=== PATIENT | male | born 1970 | race Caucasian/White ===

== ENCOUNTER → 2021-08-21 | Outpatient (REF) | payer SELFPAY | END | disposition home or self-care (01) | LOC: OLS.AHA 04:00 | PROVIDERS: Referring Provider Family Medicine; Visit Provider Family Medicine | DX: D64.9 Anemia, unspecified (principal); F25.0 Schizoaffective disorder, bipolar type; E72.20 Disorder of urea cycle metabolism, unspecified; D69.6 Thrombocytopenia, unspecified; E55.9 Vitamin D deficiency, unspecified | CPT/HCPCS: 82140 ==

== ENCOUNTER 2022-06-04 01:35 | Inpatient (IN) | payer MEDICARE, MEDICAID, SELFPAY ==
[2022-06-04] VITALS (20 sets, daily range): BP systolic 100–137; BP diastolic 54–84; PULSE 48–60; RESP 12–18; TEMP 36.1–36.7; O2SAT 83–100; BMI 30.5
--- NOTE | 2022-06-04 01:43 | RAD_ITS ---
STUDY: X-RAY CHEST REASON FOR EXAM: Male, 52 years old. sob TECHNIQUE: Single AP portable view of the chest. COMPARISON: None. FINDINGS: The lungs are clear and expanded. There is no demonstrated pleural abnormality. Normal size heart. Normal mediastinum and jovany. Normal visualized pulmonary arteries. Normal visualized aortic arch and descending thoracic aorta. Normal visualized thoracic spine. Normal visualized ribs, clavicles, and shoulders. There is no demonstrated abnormality of the visualized soft tissue structures of the upper abdomen. RAD/Chest 1 View (Portable) IMPRESSION: Normal x-ray examination of the chest. Electronically Signed: Jennifer Dowd MD at 2:26 EST ,
--- NOTE | 2022-06-04 01:45 | EX.ED.DYSGE1 ---
HPI History of Present Illness Chief Complaint: Shortness of Breath Informant: patient and EMS Narrative Narrative: Patient sent in from [facility] [place] secondary to shortness of breath and low pulse ox. Patient is a history of COPD. Per staff member at bedside patient has had cough and increased shortness of breath for the past week. He was placed on 2 L of oxygen. Tonight during rounds he was noted to be satting in the 60s. He was given an aerosol treatment placed on a nonrebreather at 10 L and EMS was called. EMS states his sats were in the 90s on the nonrebreather for them. Patient denies having fever. [facility] Medical History Anxiety Asthma COPD (chronic obstructive pulmonary disease) Cyclical vomiting Gastroparesis Hypertension Hypocalcemia Intermittent explosive disorder Thrombocythemia Allergy/AdvReac Type Severity Reaction Status Date / Time acetic acid Allergy PT UNABLE Verified 06/04/22 01:40 TO RESPOND-NEEDS F/U nut - unspecified [nuts] Allergy PT UNABLE Verified 06/04/22 01:40 TO RESPOND-NEEDS F/U Penicillins Allergy PT UNABLE Verified 06/04/22 01:40 TO RESPOND-NEEDS F/U risperidone Allergy PT UNABLE Verified 06/04/22 01:40 TO RESPOND-NEEDS F/U Social History Smoking Status: Unknown if ever smoked ROS ROS ED Constitutional Constitutional ED: Denies chills or fever(s) Eyes Eyes: Denies change in vision or discharge from eye(s) ENT ENT ED: Denies discharge from eye(s), rhinorrhea or sore throat Cardiovascular Cardiovascular: Denies chest pain or palpitations Respiratory/Chest Respiratory/Chest: Reports cough and dyspnea Gastrointestinal Gastrointestinal: Denies abdominal pain, diarrhea, nausea or vomiting Musculoskeletal Musculoskeletal: Denies back pain or extremity pain Integumentary Denies Abrasions or rash Neurologic Neurologic: Denies headache(s) or weakness Psychiatric Psychiatric: Denies anxiety or depression Allergic/Immunologic Allergic/Immunologic ED: Denies lip swelling or urticaria EXAM Physical Exam Const Vital Signs: 06/04/22 01:36 06/04/22 01:38 06/04/22 01:44 Temperature 98.1 F 97.6 F L Temperature Source Temporal Temporal Pulse Rate 57 L 60 Respiratory Rate 14 12 Respiratory Effort Normal Non-Labored Respiratory Depth Normal Respiratory Pattern Normal Blood Pressure 118/66 118/66 Blood Pressure Mean 83 83 Pulse Ox 93 95 Oxygen Delivery Method Room Air Room Air Room Air Positive well nourished and well developed General Appearance ED: well developed HEENT Reports normocephalic, head/scalp atraumatic and dry mucous membranes Mouth ED: Yes dry mucous membranes Mouth: dry mucous membranes Eyes PERRL and EOMs intact bilaterally Neck supple Chest Wall inspection of chest normal and palpation of chest normal Resp normal respiratory effort and clear to auscultation bilaterally Cardio regular rate and regular rhythm GI normal to inspection, nondistended, normoactive bowel sounds Palpation: soft Extremity normal to inspection Neuro oriented x3 Neuro Narrative: No focal neurologic deficits. 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 EKG, chest x-ray, lab work obtained. Lab Data Attestation: I reviewed the patient's lab results. Labs: Laboratory Results - last 24 hr 06/04/22 06/04/22 02:05 02:05 WBC 7.1 RBC 3.98 L Hgb 12.2 L Hct 37.7 L MCV 94.7 H MCH 30.7 MCHC 32.4 RDW Std Deviation 49.5 H RDW Coeff of Eleanor 14.5 Plt Count 154 MPV 9.7 Immature Gran % (Auto) 0.300 Neut % (Auto) 72.8 H Lymph % (Auto) 7.5 L [place] % (Auto) 14.3 H Eos % (Auto) 4.8 Baso % (Auto) 0.3 Absolute Neuts (auto) 5.2 Absolute Lymphs (auto) 0.53 L Nucleated RBC % 0 Macrocytosis RARE Sodium 140 Potassium 2.6 L* Chloride 96 L Carbon Dioxide 40.0 H Anion Gap 4 L BUN 17 Creatinine 1.21 Estim Creat Clear Calc 69.09 Est GFR (MDRD) Af Amer 81 Est GFR (MDRD) Non-Af 67 BUN/Creatinine Ratio 14.0 Glucose 169 H Calcium 8.6 Troponin I High Sens 9 Radiography Chest X-Ray - ED: 1 View, Read by ED Physician, Chronic Changes and No Infiltrates Diagnostic Testing: Clinical Impression(s) from Imaging Studies Chest X-Ray 06/04/22 01:43 IMPRESSION: Normal x-ray examination of the chest. Electronically Signed: Jennifer Dowd MD at 2:26 EST , EKG Initial EKG: Attestation: I personally reviewed and interpreted this EKG as follows: Interpretation: Sinus Bradycardia (Sinus bradycardia at [address] depression noted. No prior studies available for comparison.) Treatment and Re-Evaluation Narrative: Patient was initially on room air and satting in the mid 90s. He has had a couple episodes of desaturation down into the low to mid 80s. He is currently on 2 L nasal cannula. I am concerned that he is having more problem with mucous plugging as opposed to a true COPD exacerbation. He is given a dose of p.o. Robitussin to help with mucus. CBC and chemistry studies are significant for hypokalemia with a potassium of 2.6. Troponin is normal at 9. Patient has just recently been placed on a mechanical soft diet secondary to swallowing difficulties. In light of this I will give him IV potassium replacement. I will speak with hospitalist regarding admission. Discharge Plan Triage Chief Complaint: Shortness of Breath ED Provider: Sonia Soares Dx/Rx/DC Orders Clinical Impression: Hypokalemia, Hypoxia, Mucus plugging of bronchi Primary Care Provider: Lex Jiang Referrals: Lex Jiang MD [Primary Care Provider] - Disposition Disposition: Acute Care [facility]
[2022-06-04 02:12] LABS: Absolute Lymphocyte Count 0.53 X10^3/uL (0.83-4.51); Absolute Neutrophil Count 5.2 X10^3/uL (2.0-7.7); Basophil# 0.02 X10^3/uL; Basophil% 0.3 % (0-1); Eosinophil# 0.34 X10^3/uL; Eosinophils% 4.8 % (0-5); Hematocrit 37.7 % (40-54); Hemoglobin 12.2 g/dL (13.0-16.5); Lymphocyte # 0.53 X10^3/ul (0.83-4.51); Lymphocyte % 7.5 % (19-41); Mean Corp Hgb Conc 32.4 g/dL (32-36); Mean Corpuscular Hgb 30.7 pg (27.0-32.0); Mean Corpuscular Volume 94.7 fL (80-94); Mean Platelet Vol. 9.7 fl (6.2-12.0); Monocyte# 1.01 X10^3/uL; Monocyte% 14.3 % (0-10); NRBC Flagged by Analyzer 0 % (0-5); Neutrophil # 5.15 X10^3/uL (2.7-7.7); Neutrophil % 72.8 % (47-70); POSITIVE DIFFERENTIAL YES; Platelet Count 154 K/mm3 (150-450); RBC Distribution Width CV 14.5 % (11.6-14.6); RBC Distribution Width SD 49.5 fl (35.1-43.9); Red Blood Count 3.98 M/mm3 (4.6-6.2); White Blood Count 7.1 K/mm3 (4.4-11.0)
[2022-06-04 02:27] LABS: Differential Indicated SCAN CRITERIA MET
[2022-06-04 02:31] LABS: Macrocytosis RARE
[2022-06-04 02:36] LABS: Anion Gap 4 (5-15); BUN 17 mg/dL (7-18); Calcium,Total 8.6 mg/dL (8.5-10.1); Chloride 96 mmol/L (98-107); Creatinine, Serum 1.21 mg/dL (0.70-1.30); EST Glomerular Filtration Rate 67 mL/min (>60); Est Glom Filt Rate - Afr Amer 81 mL/min (>60); Estimated Creatinine Clearance 69.09 ml/min; Glucose 169 mg/dL (74-106); Potassium 2.6 mmol/L (3.5-5.1); Sodium Level 140 mmol/L (136-145); Troponin-I HS 9 pg/mL (3.0-78.0)
[2022-06-04] MEDS: Potassium Chloride 10mEq/100mL 10 MEQ/100 ML IV.SOLN. 100 MEQ IV BOLUS ×4 (02:54→06:26)
[2022-06-04] MEDS: guaiFENesin 10 ML UDC (200MG/10ML) PO (02:55)
--- NOTE | 2022-06-04 03:05 | PCM.HP.STD ---
HPI - General General Date of Admission: 06/04/22 Date of Service: 06/04/22 Chief Complaint: Dyspnea, cough, hypoxia. HPI Narrative The patient is a 52 y/o M w/ PMHx: Adrenocortical insufficiency, Chronic dysphagia, Obesity, Asthma/COPD, Anxiety and Depression/Intermittent explosive disorder/Schizoaffective disorder, HTN, Chronic anemia/Fe deficiency anemia, Hx cyclic vomiting and gastroparesis, Dysphagia who presents from [facility] to the [facility] ED on 06/04/22 with history of ~ 1 week of progressively worsening dyspnea, cough however worsening on evening prior to day of presentation requiring 2 L nasal cannula to be initiated and despite this significant desaturation with oxygen and into the 60s with aerosols initiated and patient placed on a nonrebreather with EMS called and upon their initial evaluation noted saturations in the 90% on the nonrebreather with no specific fever or chills recently prompting ED evaluation. Work-up in the ED included T98.1, heart rate 57, BP 118/66, respiratory rate 14, 93% on room air initially however desaturated to 83%-->improved on added 2L NC, CBC with WBC 7.1, hemoglobin 12.2, platelet 154 with lymphopenia, BMP with potassium 2.6, chloride 96, carbon oxide 40, glucose 169, troponin 9, chest x-ray with no acute cardiopulmonary findings, rapid SARS COVID and influenza antigens negative, EKG with sinus bradycardia with nonspecific ST depressions noted with no acute evidence of ischemia with no comparison. Per ED physician while in the ED the patient did have a couple episodes of desaturation down into the low 80s with concern for possibly mucous plugging with administration of oral Robitussin to assist with mucus as well as IV potassium supplementation. [facility] Medical History (Updated 06/04/22 @ 03:20 by Domi Grier) Adrenocortical insufficiency Anemia Anxiety Asthma COPD (chronic obstructive pulmonary disease) Cyclical vomiting Gastroparesis Hypertension Hypocalcemia Intermittent explosive disorder Legally blind Schizo affective schizophrenia Thrombocythemia Home Medications albuterol sulfate 0.63 mg/3 mL solution for nebulization 0.63 mg inhalation Q4H PRN PRN SOB 06/04/22 [History Last Taken Unknown] amlodipine 10 mg tablet (Norvasc) 10 mg PO DAILY 06/04/22 [History Last Taken Unknown] aspirin 81 mg capsule 81 mg PO DAILY 06/04/22 [History Last Taken Unknown] benztropine 1 mg tablet 1 mg PO BID 06/04/22 [History Last Taken Unknown] calcium 500 mg tablet 500 mg PO BID 06/04/22 [History Last Taken Unknown] carvedilol 12.5 mg tablet 12.5 mg PO BID 06/04/22 [History Last Taken Unknown] cyanocobalamin (vitamin B-12) 1,000 mcg tablet 1,000 mcg PO QWEEK 06/04/22 [History Last Taken Unknown] divalproex 500 mg tablet,extended release 24 hr (Depakote ER) 500 mg PO BID 06/04/22 [History Last Taken Unknown] ergocalciferol (vitamin D2) 50,000 unit tablet 50,000 unit PO QWEEK 06/04/22 [History Last Taken Unknown] escitalopram oxalate 10 mg tablet (Lexapro) 10 mg PO BID 06/04/22 [History Last Taken Unknown] famotidine 20 mg tablet (Pepcid) 20 mg PO DAILY 06/04/22 [History Last Taken Unknown] ferrous sulfate 325 mg (65 mg iron) tablet (FeroSul) 325 mg PO BID 06/04/22 [History Last Taken Unknown] fludrocortisone 0.1 mg tablet 0.1 mg PO DAILY 06/04/22 [History Last Taken Unknown] fluticasone propionate 50 mcg/actuation nasal spray,suspension 1 spray intranasal DAILY 06/04/22 [History Last Taken Unknown] folic acid 1 mg tablet 1 mg PO DAILY 06/04/22 [History Last Taken Unknown] hydrochlorothiazide 25 mg tablet 25 mg PO DAILY 06/04/22 [History Last Taken Unknown] iloperidone 12 mg tablet (Fanapt) 12 mg PO DAILY 06/04/22 [History Last Taken Unknown] iloperidone 6 mg tablet (Fanapt) 6 mg PO DAILY 06/04/22 [History Last Taken Unknown] lorazepam 2 mg tablet 2 mg PO Q6H PRN PRN Anxiety 06/04/22 [History Last Taken Unknown] lorazepam 2 mg tablet (Ativan) 2 mg PO TID 06/04/22 [History Last Taken Unknown] lorazepam 2 mg/mL injection solution (Ativan) 2 mg IV Q6H PRN PRN Anxiety 06/04/22 [History Last Taken Unknown] propranolol 120 mg capsule,24 hr,extended release (Inderal LA) 120 mg PO DAILY 06/04/22 [History Last Taken Unknown] psyllium husk 3.4 gram/5.4 gram oral powder (Metamucil) 1 tbsp PO DAILY 06/04/22 [History Last Taken Unknown] quetiapine 300 mg tablet,extended release 24 hr (Seroquel XR) 600 mg PO QHS 06/04/22 [History Last Taken Unknown] trazodone 100 mg tablet 100 mg PO DAILY 06/04/22 [History Last Taken Unknown] Allergy/AdvReac Type Severity Reaction Status Date / Time acetic acid Allergy PT UNABLE Verified 06/04/22 01:40 TO RESPOND-NEEDS F/U nut - unspecified [nuts] Allergy PT UNABLE Verified 06/04/22 01:40 TO RESPOND-NEEDS F/U Penicillins Allergy PT UNABLE Verified 06/04/22 01:40 TO RESPOND-NEEDS F/U risperidone Allergy PT UNABLE Verified 06/04/22 01:40 TO RESPOND-NEEDS F/U unable to obtain unable to obtain Social History (Updated 06/04/22 @ 03:[address] Corrina Huerta MD) housing: other details: Nursing facility with psychiatric focus. Smoking Status: Unknown if ever smoked alcohol intake: never substance use type: does not use ROS ROS Narrative Admission Review of Systems: CONSTITUTIONAL: No weight loss, fever, chills, + weakness or fatigue. HEENT: + Congestion, rhinorrhea, legally blind status. Eyes: No blurred vision, double vision or yellow sclerae. Ears, Nose, Throat: No hearing loss, sneezing. SKIN: No rash or itching, lesions, wounds. CARDIOVASCULAR: No chest pain, chest pressure or chest discomfort, palpitations, edema, orthopnea, syncopal events. RESPIRATORY: + shortness of breath, cough without marked sputum, No wheezing, hemoptysis. GASTROINTESTINAL: + anorexia, No nausea, vomiting or diarrhea, abdominal pain, melena, BRBPR. GENITOURINARY: No dysuria, frequency, urgency or retention. NEUROLOGICAL: No headache, dizziness, syncope, paralysis, ataxia, numbness or tingling in the extremities, focal weakness, change in bowel or bladder control, seizure. MUSCULOSKELETAL: + muscle, back pain, joint pain or stiffness. HEMATOLOGIC: + anemia, bleeding or bruising. LYMPHATICS: No enlarged nodes. No history of splenectomy. PSYCHIATRIC: + history of depression or anxiety. ENDOCRINOLOGIC: No reports of sweating, cold or heat intolerance. No polyuria or polydipsia. ALLERGIES: + history of asthma, rhinitis. Review of Systems ROS Unobtainable: other Vital Signs Vital Signs Vital Signs: 06/04/22 01:36 06/04/22 01:38 06/04/22 01:44 Temperature 98.1 F 97.6 F L Temperature Source Temporal Temporal Pulse Rate 57 L 60 Respiratory Rate 14 12 Respiratory Effort Normal Non-Labored Respiratory Depth Normal Respiratory Pattern Normal Blood Pressure 118/66 118/66 Blood Pressure Mean 83 83 Pulse Ox 93 95 Oxygen Delivery Method Room Air Room Air Room Air 06/04/22 02:36 Temperature Temperature Source Pulse Rate 50 L Respiratory Rate 15 Respiratory Effort Respiratory Depth Respiratory Pattern Blood Pressure Blood Pressure Mean Pulse Ox 83 Oxygen Delivery Method Room Air Weight Weight: 201 lb 1.6 oz Body Mass Index (BMI) 30.5 Physical Exam Narrative Physical Examination: General: Awakens to stimuli and alert initially however very fatigued and falls back asleep quickly, patient able to answer some questions but per discussion with facility staff present frequently will give answers that are falls secondary to underlying schizophrenic history, seated upright in ED bed, fatigued and ill-appearing. Skin: Normal color, normal turgor, no icterus, no cyanosis. HEENT: AT/NC, EOMI, legally blind status, PERRLA, dry MM, no carotid bruits or JVD noted. Lungs: Diminished, appropriate effort, currently maintaining appropriate saturation but had been having significant episodes of hypoxia in the ED with suspected mucous plugging, no rales, ronchi or wheezing. Heart: Bradycardic with regular rhythm; no gallop, rub audible. Abdomen: Soft, obese, NTTP, ND, distant normal BS, no HSM. Extremities: No cyanosis, clubbing, or edema. Neurological: Awakens to stimuli and alert initially however very fatigued and falls back asleep quickly, patient able to answer some questions but per discussion with facility staff present frequently will give answers that are falls secondary to underlying schizophrenic history, seated upright in ED bed, fatigued and ill-appearing, cognitive function per discussion with facility staff currently based intact; pupils equally reactive to light and accommodation, cranial nerves grossly normal, moving all 4 extremities, no focal deficits, strength moderately globally decreased secondary to acute presentation. Psychiatric: Affect appears significantly fatigued, no acute evidence of depressive or anxiety feelings but does have underlying significant psychiatric history. Results Lab / Micro Data Result Diagrams: 06/04/22 02:05 06/04/22 02:05 Labs: Laboratory Results - last 24 hr 06/04/22 02:05: WBC 7.1, RBC 3.98 L, Hgb 12.2 L, Hct 37.7 L, MCV 94.7 H, MCH 30.7, MCHC 32.4, RDW Std Deviation 49.5 H, RDW Coeff of Eleanor 14.5, Plt Count 154, MPV 9.7, Immature Gran % (Auto) 0.300, Neut % (Auto) 72.8 H, Lymph % (Auto) 7.5 L, [place] % (Auto) 14.3 H, Eos % (Auto) 4.8, Baso % (Auto) 0.3, Absolute Neuts (auto) 5.2, Absolute Lymphs (auto) 0.53 L, Nucleated RBC % 0, Macrocytosis RARE 06/04/22 02:05: Sodium 140, Potassium 2.6 L*, Chloride 96 L, Carbon Dioxide 40.0 H, Anion Gap 4 L, BUN 17, Creatinine 1.21, Estim Creat Clear Calc 69.09, Est GFR (MDRD) Af Amer 81, Est GFR (MDRD) Non-Af 67, BUN/Creatinine Ratio 14.0, Glucose 169 H, Calcium 8.6, Troponin I High Sens 9 Micro: Microbiology 06/04/22 02:03 Nasal Secretion SARS-CoV-2 & FLU Antigen (Rapid) - Final Radiology Impression Chest X-Ray 06/04/22 01:43 IMPRESSION: Normal x-ray examination of the chest. Electronically Signed: Jennifer Dowd MD at 2:26 EST , Assessment & Plan Assessment/Plan (1) Mucus plugging of bronchi: (2) Hypoxia: PLAN: Plan The patient is a 52 y/o M w/ PMHx: Adrenocortical insufficiency, Chronic dysphagia, Obesity, Asthma/COPD, Anxiety and Depression/Intermittent explosive disorder/Schizoaffective disorder, HTN, Chronic anemia/Fe deficiency anemia, Hx cyclic vomiting and gastroparesis, Dysphagia who presents from [facility] to the [facility] ED on 06/04/22 with history of ~ 1 week of progressively worsening dyspnea, cough however worsening on evening prior to day of presentation requiring 2 L nasal cannula to be initiated and despite this significant desaturation with oxygen and into the 60s with aerosols initiated and patient placed on a nonrebreather with EMS called and upon their initial evaluation noted saturations in the 90% on the nonrebreather with no specific fever or chills recently prompting ED evaluation. #1. Acute Viral Syndrome with Suspected Mucous Plugging with episodes of Acute Hypoxia: Will admit to [facility], maintain on oxygen with wean as tolerated to room air, continue ATC duonebs, PRN albuterol, encourage frequent positional changes, HOB, IS parameters, obtain sputum cx if able, will obtain full respiratory viral panel, maintain on mucinex. If onset wheezing or poor air movement low threshold to add IV solumedrol. #2. Hyperglycemia, possibly stress response: Admission glucose 169, no diabetic history, will obtain hemoglobin A1c. #3. Hypokalemia: Admission K+ 2.6, magnesium level requested, supplementation given, repeat level in AM. #4. Chronic Fe Deficiency anemia, Macrocytic anemia: Admission CBC with hemoglobin 12.2, MCV 94.7, will continue Fe, Folic acid daily supplementations, noted to also be on weekly vitamin B12 supplementation, continue to trend CBC. #5. History of cyclic vomiting with gastroparesis: From current list not on any chronic regimen however if necessary may administer Reglan. #6. Chronic dysphagia: Patient per facility is on a mechanical soft diet with recent swallowing difficulties noted, will request speech therapy assessment and maintain on this diet until further assessed. #7. Hypertension: Continue home regimen including amlodipine, Coreg, given severity of electrolyte disturbances will hold hydrochlorothiazide temporarily, PRN hydralazine. From medication list from facility patient also listed on propranolol which will be held given already on coreg and noted to be bradycardic. #8. Adrenocortical insufficiency: We will continue patient home fludrocortisone regimen. #9. Anxiety and depression/intermittent explosive disorder/? Bipolar disorder: We will continue patient home regimen benztropine, Depakote, escitalopram, Seroquel, trazodone, Ativan as well as Fanapt. #10. Obesity: Weight loss and lifestyle changes encouraged. #11. DVT prophylaxis: SCDs, Lovenox. #12. CODE STATUS: Full code per facility paperwork. Charges/Coding Visit Charges Inpatient E&M: 65560 Init Hosp L2
--- NOTE | 2022-06-04 04:30 | NURSING ---
pt lethargic and hard to arouse. worker from [facility] Said Pt hard sleeper and really hard to wake up at nights.
[2022-06-04] MEDS: 0.9% Normal Saline 1,000 ML 100 ML IV ×2 (04:34→14:34)
--- NOTE | 2022-06-04 04:51 | NURSING ---
Pt having periods of apnea while sleeping. snoring heard then pulse ox jumps back up
[2022-06-04 04:54] LABS: Ferritin 36 ng/mL (26-388); Iron 31 ug/dL (65-175); Iron Binding Capacity,Total 265 ug/dL (250-450); Magnesium 1.8 mg/dL (1.6-2.6); PERCENT IRON SATURATION 11.7 % (15.0-55.0)
[2022-06-04 05:01] LABS: Procalcitonin 0.04 ng/mL (0.00-0.09)
--- NOTE | 2022-06-04 05:06 | NURSING ---
heike from [facility] clarified meds and code status
[2022-06-04 07:23] LABS: Absolute Lymphocyte Count 0.81 X10^3/uL (0.83-4.51); Absolute Neutrophil Count 3.9 X10^3/uL (2.0-7.7); Basophil# 0.03 X10^3/uL; Basophil% 0.5 % (0-1); Eosinophil# 0.36 X10^3/uL; Eosinophils% 6.1 % (0-5); Hematocrit 36.3 % (40-54); Hemoglobin 11.8 g/dL (13.0-16.5); Lymphocyte # 0.81 X10^3/ul (0.83-4.51); Lymphocyte % 13.8 % (19-41); Mean Corp Hgb Conc 32.5 g/dL (32-36); Mean Corpuscular Hgb 30.8 pg (27.0-32.0); Mean Corpuscular Volume 94.8 fL (80-94); Mean Platelet Vol. 9.1 fl (6.2-12.0); Monocyte# 0.82 X10^3/uL; Monocyte% 13.9 % (0-10); NRBC Flagged by Analyzer 0 % (0-5); Neutrophil # 3.85 X10^3/uL (2.7-7.7); Neutrophil % 65.5 % (47-70); Platelet Count 139 K/mm3 (150-450); RBC Distribution Width CV 14.6 % (11.6-14.6); RBC Distribution Width SD 49.9 fl (35.1-43.9); Red Blood Count 3.83 M/mm3 (4.6-6.2); White Blood Count 5.9 K/mm3 (4.4-11.0)
[2022-06-04] MEDS: Ipratropium/Albuterol Sulfate 3 ML AMPUL.NEB INHALATION ×3 (07:25→15:49)
[2022-06-04] MEDS: Potassium Chloride Oral Soln 20 MEQ/15 ML UDC 40 MEQ PO (08:05)
[2022-06-04 08:23] LABS: ALB/GLOB Ratio 0.8 RATIO (0.9-2.4); AST(SGOT) 14 U/L (15-37); Alanine Aminotransfer ALT/SGPT 19 U/L (16-61); Albumin, Serum 2.7 g/dL (3.2-5.0); Alkaline Phosphatase 55 U/L (45-117); Anion Gap 3 (5-15); BUN 16 mg/dL (7-18); BUN/Creat Ratio 18.9 RATIO (10-20); Calcium,Total 8.5 mg/dL (8.5-10.1); Chloride 98 mmol/L (98-107); Creatinine, Serum 0.85 mg/dL (0.70-1.30); EST Glomerular Filtration Rate 101 mL/min (>60); Est Glom Filt Rate - Afr Amer 122 mL/min (>60); Estimated Creatinine Clearance 98.35 ml/min; Globulin 3.2 g/dL (2.2-4.2); Glucose 85 mg/dL (74-106); Protein, Total 5.9 g/dL (6.4-8.2); Sodium Level 140 mmol/L (136-145)
[2022-06-04 08:29] LABS: Vitamin B12 1008 pg/mL (211-911)
[2022-06-04 08:52] LABS: Hemoglobin A1c 5.2 % (3.8-5.6)
[2022-06-04] MEDS: LORazepam 1 MG Tablet 2 MG PO ×2 (09:31→22:49)
[2022-06-04] MEDS: Enoxaparin 40 MG/0.4 ML Syringe SC (09:32)
[2022-06-04] MEDS: Psyllium 1 PACKET PO (09:33)
[2022-06-04] MEDS: amLODIPine 10 MG Tablet PO (09:33)
[2022-06-04] MEDS: Escitalopram Oxalate 10 MG Tablet PO ×2 (09:33→22:50)
[2022-06-04] MEDS: Fluticasone 0.05% 1 SPRAY NASAL.SRY NASAL (09:34)
[2022-06-04] MEDS: Cyanocobalamin 500 MCG Tablet 1000 MCG PO (09:34)
[2022-06-04] MEDS: Divalproex (ER) 500 MG Tablet PO ×2 (09:34→22:49)
[2022-06-04] MEDS: QUEtiapine 100 MG Tablet 300 MG PO ×2 (09:35→22:49)
[2022-06-04] MEDS: Famotidine 20 MG Tablet PO (09:35)
[2022-06-04] MEDS: Folic Acid 1 MG Tablet PO (09:36)
[2022-06-04] MEDS: Benztropine 2 MG Tablet 1 MG PO ×2 (09:37→22:49)
[2022-06-04] MEDS: Calcium Carbonate 500 MG Tablet PO (09:37)
[2022-06-04] MEDS: Hydrocortisone Sod Succinate 100 MG/2 ML Vial 30 MG IV ×2 (09:38→22:49)
[2022-06-04] MEDS: guaiFENesin 1,200 MG Tablet 1200 MG PO ×2 (09:38→22:49)
[2022-06-04] MEDS: Ferrous Sulfate 325 MG Tablet PO (12:42)
--- NOTE | 2022-06-04 14:59 | PN.HOSP_ITS ---
Hospitalist Note Patient is a 52-year-old male who presented to emergency department currently living at [facility] who had progressively worsening dyspnea, cough over the last week. Evidently his oxygen dipped in the 60s on 2 L and aerosols were initiated and he was placed on a nonrebreather and EMS was called. EMS sats initially were 90% on the nonrebreather. His work-up in the emergency department was overall unremarkable. He was satting 93% on room air but then desaturated to 83% and improved with 2 L nasal cannula. His labs are overall unremarkable but he does have lymphopenia. He had significant hypokalemia with potassium of 2.6 and his chest x-ray was unremarkable. COVID and influenza rapid were negative. And his chest x-ray was unremarkable. Since admission a respiratory viral panel was performed and was negative. Since admission the patient has remained on 2 L nasal cannula with oxygen saturations 93 to 96%. He does have a history of relative adrenal insufficiency so I will discontinue his fludrocortisone and place him on IV Solu-Cortef for now and monitor his blood pressures as they were somewhat soft. There is some question of mucous plugging so we will continue Mucinex and may possibly able to be discharged back to his facility tomorrow depending on his clinical status and oxygen requirements. Will require ambulatory pulse ox prior to discharge.
--- NOTE | 2022-06-04 15:11 | CHAPLAIN ---
Type of Pastoral Visit _x__ Initial Visit ___ Follow-up Visit ___ On-call Visit ___ General Patient Visit ___ Spiritual Assessment ___ Family Conference ___ Bereavement ___ Rapid Response ___ Code Blue ___ Other (describe below) Pastoral Care Referral From _x__ Patient ___ Family ___ Nurse ___ Physician ___ Patent Searcher ___ Per Diem Physical Therapist ___ Other (describe below) Sacrament/Intervention ___ Active listening ___ Anointing ___ Jainism ___ Bereavement ___ Communion ___ Jennifer exploration ___ ___ Life review ___ Prayer ___ Reconciliation ___ Sacrament of Sick ___ Supportive presence ___ Wedding ___ Other (describe below) Pastoral Comments patient was sleeping in a 'boarding room in ED'; RN tried to awaken the patient but he did not; introduced sef and care to pat but again he did not respond; said a silent prayer and left a calling card
[2022-06-04] MEDS: traZODone 100 MG Tablet PO (22:49)
[2022-06-05] VITALS (12 sets, daily range): BP systolic 119–149; BP diastolic 62–81; PULSE 51–84; RESP 15–18; TEMP 36.6–37.4; O2SAT 91–96
[2022-06-05 04:51] LABS: Absolute Lymphocyte Count 0.43 X10^3/uL (0.83-4.51); Absolute Neutrophil Count 4.2 X10^3/uL (2.0-7.7); Basophil# 0.02 X10^3/uL; Basophil% 0.4 % (0-1); Eosinophil# 0.04 X10^3/uL; Eosinophils% 0.8 % (0-5); Hematocrit 36.2 % (40-54); Hemoglobin 12.2 g/dL (13.0-16.5); Lymphocyte # 0.43 X10^3/ul (0.83-4.51); Lymphocyte % 8.4 % (19-41); Mean Corp Hgb Conc 33.7 g/dL (32-36); Mean Corpuscular Hgb 31.6 pg (27.0-32.0); Mean Corpuscular Volume 93.8 fL (80-94); Mean Platelet Vol. 9.4 fl (6.2-12.0); Monocyte# 0.33 X10^3/uL; Monocyte% 6.5 % (0-10); NRBC Flagged by Analyzer 0 % (0-5); Neutrophil # 4.24 X10^3/uL (2.7-7.7); Neutrophil % 83.1 % (47-70); POSITIVE DIFFERENTIAL YES; Platelet Count 152 K/mm3 (150-450); RBC Distribution Width CV 14.4 % (11.6-14.6); RBC Distribution Width SD 48.4 fl (35.1-43.9); Red Blood Count 3.86 M/mm3 (4.6-6.2); White Blood Count 5.1 K/mm3 (4.4-11.0)
[2022-06-05 05:05] LABS: Differential Indicated SCAN CRITERIA MET
[2022-06-05] MEDS: LORazepam 1 MG Tablet 2 MG PO ×3 (05:06→21:56)
[2022-06-05 05:22] LABS: Anion Gap 4 (5-15); BUN 10 mg/dL (7-18); BUN/Creat Ratio 14.2 RATIO (10-20); Calcium,Total 8.6 mg/dL (8.5-10.1); Chloride 100 mmol/L (98-107); Creatinine, Serum 0.71 mg/dL (0.70-1.30); EST Glomerular Filtration Rate 125 mL/min (>60); Est Glom Filt Rate - Afr Amer 151 mL/min (>60); Estimated Creatinine Clearance 117.75 ml/min; Glucose 134 mg/dL (74-106); Potassium 3.3 mmol/L (3.5-5.1); Sodium Level 140 mmol/L (136-145); Thyroid Stim Hormone (TSH) 0.35 uIU/mL (0.358-3.74)
[2022-06-05] MEDS: Ipratropium/Albuterol Sulfate 3 ML AMPUL.NEB INHALATION ×3 (07:11→15:04)
[2022-06-05] MEDS: Carvedilol 12.5 MG Tablet PO ×2 (10:20→17:09)
[2022-06-05] MEDS: Folic Acid 1 MG Tablet PO (10:20)
[2022-06-05] MEDS: Benztropine 2 MG Tablet 1 MG PO ×2 (10:21→21:56)
[2022-06-05] MEDS: Fluticasone 0.05% 1 SPRAY NASAL.SRY NASAL (10:22)
[2022-06-05] MEDS: Divalproex (ER) 500 MG Tablet PO ×2 (10:22→21:56)
[2022-06-05] MEDS: Escitalopram Oxalate 10 MG Tablet PO ×2 (10:23→21:57)
[2022-06-05] MEDS: Enoxaparin 40 MG/0.4 ML Syringe SC (10:23)
[2022-06-05] MEDS: guaiFENesin 1,200 MG Tablet 1200 MG PO ×2 (10:23→21:56)
[2022-06-05] MEDS: Famotidine 20 MG Tablet PO (10:24)
[2022-06-05] MEDS: amLODIPine 10 MG Tablet PO (10:24)
[2022-06-05] MEDS: QUEtiapine 100 MG Tablet 300 MG PO ×2 (10:24→21:56)
[2022-06-05] MEDS: Hydrocortisone Sod Succinate 100 MG/2 ML Vial 30 MG IV ×2 (10:25→21:55)
[2022-06-05] MEDS: Psyllium 1 PACKET PO (10:26)
[2022-06-05] MEDS: Potassium Chloride Oral Tablet 20 MEQ 40 MEQ PO (10:30)
[2022-06-05] MEDS: Calcium Carbonate 500 MG Tablet PO ×2 (10:35→17:08)
[2022-06-05] MEDS: Ferrous Sulfate 325 MG Tablet PO ×2 (12:10→17:09)
--- NOTE | 2022-06-05 13:22 | CHAPLAIN ---
Type of Pastoral Visit ___ Initial Visit _x__ Follow-up Visit ___ On-call Visit ___ General Patient Visit ___ Spiritual Assessment ___ Family Conference ___ Bereavement ___ Rapid Response ___ Code Blue ___ Other (describe below) Pastoral Care Referral From _x__ Patient ___ Family ___ Nurse ___ Physician ___ Maintenance Instructor ___ Heel Edge Inker Machine ___ Other (describe below) Sacrament/Intervention _x__ Active listening ___ Anointing ___ Orthodoxy ___ Bereavement ___ Communion ___ Jennifer exploration ___ _x__ Life review ___ Prayer ___ Reconciliation ___ Sacrament of Sick _x__ Supportive presence ___ Wedding ___ Other (describe below) Pastoral Comments patient was finishing his lunch; pt offered presence and support; pt began to talk about various topics including where he has been residing, things in the news, and random things; at one point pt asked if this auto body painter would hear confessions; offered to hear his concerns and to pray for pt but he declined the same; pt asked for something to drink and this auto body painter notified the BUOY TENDER of same
--- NOTE | 2022-06-05 13:34 | CASEMGMT ---
Social Work SW in to speak to pt and begin discharge planning. Pt appears to be unable to make decisions for self. Pt informed SW that Carlin is my cleaning lady and she drinks tea with me. Pt also reported names of pt's Legal Guardian, POA and CPST Worker. Pt stated My Legal Guardian is Pierre Gonsales and he is here right now. He is invisible and does not want to talk to you. SW called [facility] following discussion with pt. SW spoke to pt's Shefali PADILLA, and Shefali from [facility] shared that pt's sister, Courtney Oates, is Legal Guardian. SW called Courtnye to complete discharge plan. Courtney confirmed pt should return to [facility]. Dr. Solares notified of discharge plan. Speech reports need to complete swallow study for pt tomorrow morning. Plan: [facility], when medically ready YOLI Mcqueen
[2022-06-05] MEDS: Acetaminophen 325 MG Tablet 650 MG PO (15:34)
--- NOTE | 2022-06-05 17:54 | PN.HOSP_ITS ---
Subjective Subjective No issues overnight. No significant shortness of breath. A modified barium swallow planned for tomorrow. Patient is on room air to 1 L. No further worsening of hypoxia events. Objective Data Objective Data Vital Signs: Vital Signs Temp Pulse Resp BP Pulse Ox O2 Del Method O2 Flow Rate 99.3 F H 67 18 119/64 92 Nasal Cannula 1 06/05/22 15:36 06/05/22 15:36 06/05/22 15:36 06/05/22 15:36 06/05/22 15:36 06/05/22 15:40 06/05/22 15:40 Oxygen Flow Rate (L/min) 1 Oxygen Delivery Method Nasal Cannula Weight: 91.2 kg Body Mass Index (BMI) 30.5 Intake & Output: Intake and Output for Last 24 Hours 06/03/22 06/04/22 06/05/22 23:59 23:59 23:59 Intake Total 3349.33 / 4349.33 1400 / 1400 Output Total 700 / 700 Balance 3349.33 / 4349.33 700 / 700 Lab / Micro Data Result Diagrams: 06/05/22 04:24 06/05/22 04:24 Labs: Laboratory Results - last 24 hr 06/05/22 04:24: WBC 5.1, RBC 3.86 L, Hgb 12.2 L, Hct 36.2 L, MCV 93.8, MCH 31.6, MCHC 33.7, RDW Std Deviation 48.4 H, RDW Coeff of Eleanor 14.4, Plt Count 152, MPV 9.4, Immature Gran % (Auto) 0.800, Neut % (Auto) 83.1 H, Lymph % (Auto) 8.4 L, [place] % (Auto) 6.5, Eos % (Auto) 0.8, Baso % (Auto) 0.4, Absolute Neuts (auto) 4.2, Absolute Lymphs (auto) 0.43 L, Nucleated RBC % 0 06/05/22 04:24: Sodium 140, Potassium 3.3 L, Chloride 100, Carbon Dioxide 36.0 H , Anion Gap 4 L, BUN 10, Creatinine 0.71, Estim Creat Clear Calc 117.75, Est GFR (MDRD) Af Amer 151, Est GFR (MDRD) Non-Af 125, BUN/Creatinine Ratio 14.2, Glucose 134 H, Calcium 8.6, TSH 0.35 L Micro: Microbiology 06/04/22 03:31 Mucosa - Nasopharyngeal Respiratory Panel (PCR) - Final 06/04/22 02:03 Nasal Secretion SARS-CoV-2 & FLU Antigen (Rapid) - Final Physical Exam Const Constitutional Narrative: Alert, oriented to self and place, appears comfortable, sitting upright in bed and nursing at bedside HEENT head/scalp atraumatic and moist oral mucous membranes Head and Scalp: normocephalic Resp normal respiratory effort, no retractions, no use of accessory muscles and clear to auscultation bilaterally Auscultation: Negative for crackles, rhonchi or wheezes Cardio regular rate, regular rhythm, S1 normal heart sound, S2 normal heart sound, no rub, no gallops and no clicks Cardio Narrative: 2 out of 6 systolic murmur louder at right upper sternal border GI normal to inspection, nondistended, normoactive bowel sounds, soft to palpation and non-tender Extremity no clubbing, cyanosis or edema Neuro Neuro Narrative: Patient is legally blind therefore vision is impaired, moves all extremities symmetrically Speech: speech normal Psych Psych Narrative: Patient with tangential thought process, affect is strange Assessment & Plan Assessment/Plan (1) Hypoxia: (2) Mucus plugging of bronchi: (3) Hypokalemia: PLAN: Plan Acute hypoxia -Etiology is unclear -Possible aspiration versus mucous plugging -Patient has been weaned to 1 L -We will continue to wean as able -Work-up for infectious etiology has been negative thus far -Continue Mucinex -No current need for any IV steroids Hypokalemia -Proving with potassium up to 3.3 -Redose p.o. potassium again today -Recheck in a.m. Hyperglycemia -Hemoglobin 1C was 5.2 -Patient not diabetic -Hyperglycemia likely her stress response Chronic iron deficiency anemia -Anemia is macrocytic at this point -Suspect related to some medications -Hemoglobin stable -Continue iron and folic acid supplements History of cyclic vomiting syndrome with gastroparesis -Not currently on any medications -No issues Chronic dysphagia -Baseline diet is mechanical soft -Speech therapy evaluated the patient and recommended modified barium swallow -MBS in a.m. Hypertension -Continue home amlodipine/Coreg -HCTZ on hold with hypokalemia on admission -We will restart tomorrow if potassium remains stable Adrenal insufficiency -Continue stress dose steroids -Restart cortisone at discharge Anxiety/depression/bipolar disorder/schizoaffective disorder -Continue home psychiatric regimen Obesity -Recommend weight loss -Complicates treatment, prognosis, outcomes DVT prophylaxis -SCDs -Lovenox CODE STATUS -Full code Charges/Coding Visit Charges Inpatient E&M: 20794 Subs Hosp L2
[2022-06-05] MEDS: traZODone 100 MG Tablet PO (21:56)
[2022-06-06] VITALS (8 sets, daily range): BP systolic 134–155; BP diastolic 82–88; PULSE 58–74; RESP 16–18; TEMP 36.6–36.7; O2SAT 92–96
[2022-06-06] MEDS: LORazepam 1 MG Tablet 2 MG PO ×2 (06:17→16:07)
[2022-06-06 07:05] LABS: Anion Gap 3 (5-15); BUN 7 mg/dL (7-18); BUN/Creat Ratio 10.5 RATIO (10-20); Calcium,Total 8.4 mg/dL (8.5-10.1); Chloride 104 mmol/L (98-107); Creatinine, Serum 0.67 mg/dL (0.70-1.30); EST Glomerular Filtration Rate 133 mL/min (>60); Est Glom Filt Rate - Afr Amer 161 mL/min (>60); Estimated Creatinine Clearance 124.78 ml/min; Glucose 118 mg/dL (74-106); Potassium 3.8 mmol/L (3.5-5.1); Sodium Level 144 mmol/L (136-145)
[2022-06-06] MEDS: Benztropine 2 MG Tablet 1 MG PO (09:15)
[2022-06-06] MEDS: Carvedilol 12.5 MG Tablet PO ×2 (09:17→16:04)
[2022-06-06] MEDS: Divalproex (ER) 500 MG Tablet PO (09:18)
[2022-06-06] MEDS: Folic Acid 1 MG Tablet PO (09:18)
[2022-06-06] MEDS: Calcium Carbonate 500 MG Tablet PO ×2 (09:19→16:05)
[2022-06-06] MEDS: Fluticasone 0.05% 1 SPRAY NASAL.SRY NASAL (09:19)
[2022-06-06] MEDS: guaiFENesin 1,200 MG Tablet 1200 MG PO (09:20)
[2022-06-06] MEDS: Enoxaparin 40 MG/0.4 ML Syringe SC (09:20)
[2022-06-06] MEDS: Psyllium 1 PACKET PO (09:20)
[2022-06-06] MEDS: Escitalopram Oxalate 10 MG Tablet PO (09:20)
[2022-06-06] MEDS: Famotidine 20 MG Tablet PO (09:21)
[2022-06-06] MEDS: QUEtiapine 100 MG Tablet 300 MG PO (09:21)
[2022-06-06] MEDS: amLODIPine 10 MG Tablet PO (09:21)
[2022-06-06] MEDS: Hydrocortisone Sod Succinate 100 MG/2 ML Vial 30 MG IV (09:22)
--- NOTE | 2022-06-06 10:02 | CASEMGMT ---
Social Work Pt has a legal guardian Courtneyjuliana Richardsonayo. documents are on pt chart for scanning into the EMR. YOLI Moreno
--- NOTE | 2022-06-06 11:17 | PCM.TXEXTCAR ---
Diet Diet Order/Speech Therapy: 06/04/22 04:07 Diet: Cardiac - Heart Healthy Food consistency:: Mechanical soft textures-minced and moist textures, thin liquids Liquid Consistency:: Regular/Thin Type of Dietary Supplement:: 240ml straw Ensure+ w/ BR Diet Comments: Minced & moist meat,Liquid by straw, Direct Sup/FEEDING ASSIST;ES pud w/ D Routine Orders/Code Status Suppository Frequency: Daily PRN O2 Frequency: PRN Keep PO Greater than or Equal to (%): 92 Code Status: Full Code Suggestions for Active Care Change Position every (hours): 2 Hours to sit in a chair: 3 Times a day to sit in chair: 2 Therapies Weight Bearing: Full weight bearing Physical Therapy: Eval and Treat Occupational Therapy: Eval and Treat Speech Therapy: Eval and Treat Problem/Diagnosis (1) Hypoxia: Status: Acute Code(s): R09.02 - Hypoxemia (2) Mucus plugging of bronchi: Status: Acute Code(s): T17.500A - Unspecified foreign body in bronchus causing asphyxiation, initial encounter (3) Hypokalemia: Status: Acute Code(s): E87.6 - Hypokalemia Plan Recommendations for patient based on modified barium swallow Diet:?Mechanical Soft Textures - Minced and Moist textures (IDDSI Level 5), Thin Liquids Compensatory Strategies:?Small Bites, Small Sips, No Straws, Slow Rate - Sips and bites one at a time, Alternate bites/solids and sips/liquids, Sitting upright, Minimize/decrease distractions Supervision:?1:1 Close Supervision - Assist feeding as needed to help patient control rate of oral intake as patient is very impulsive Recommend Repeat Modified Barium Swallow:?TBD Need for Skilled Speech Therapy Services:?Yes Comment: Per RNAleksander, the patient will be discharging today. Will recommend the patient for continued dysphagia therapy at next level of care to address deficits in oropharyngeal swallow function. Will recommend the patient for oropharyngeal strengthening to improve lingual control, laryngeal elevation, hyoid excursion, tongue base retraction, and pharyngeal contraction. The patient would benefit from thorough education regarding diet recommendations and recommended compensatory strategies. Would consider the patient for 10cc bolus control cup (Provale) if unable to control his rate of intake with liquids. Education Completed:?1. Described result of evaluation., 7. Pt requires further education on strategies & risks. Allergies/Procedures Done in Hospital Allergies acetic acid Allergy (Verified 06/04/22 01:40) PT UNABLE TO RESPOND-NEEDS F/U nut - unspecified [nuts] Allergy (Verified 06/04/22 01:40) PT UNABLE TO RESPOND-NEEDS F/U Penicillins Allergy (Verified 06/04/22 01:40) PT UNABLE TO RESPOND-NEEDS F/U risperidone Allergy (Verified 06/04/22 01:40) PT UNABLE TO RESPOND-NEEDS F/U Type of Care/Length of Stay Estimated LOS: More Than 30 Days Type of Care Needed: Intermediate Rehab Potential: Fair Prognosis: Fair Additional Orders/Day of Discharge Day of Discharge: 06/06/22 Dietary and Speech Recommendations Dietitian Recommendations/Changes: Continue cardiac diet with consistency/texture as per [employer]. Will add ensure pudding w/ dinner. Will add 240 ml strawberry ensure plus high protein w/ breakfast. Discharge Plan Admission Admit Date/Time: 06/04/22 03:08 Primary Reason for Your Visit: Acute hypoxia Attending Provider: Lisa Solares Primary Care Provider: Lex Jiang Consulting Providers: Corrina Huerta Discharge Orders/Prescriptions Prescriptions: New Mucus Relief ER 1,200 mg Tablet Extended Release 12hr 1,200 mg PO BID Qty: 0 0RF Continued albuterol sulfate 0.63 mg/3 mL solution for nebulization 0.63 mg inhalation Q4H PRN PRN (Reason: SOB) carvedilol 12.5 mg Tablet 12.5 mg PO BID Rx Instructions: must administer with a meal/food lorazepam [Ativan] 2 mg/mL Solution 2 mg IV Q6H PRN PRN (Reason: Anxiety) Rx Instructions: until symptoms controlled calcium 500 mg Tablet 500 mg PO BID cyanocobalamin (vitamin B-12) 1,000 mcg Tablet 1,000 mcg PO QWEEK ergocalciferol (vitamin D2) 50,000 unit Tablet 50,000 unit PO QWEEK famotidine [Pepcid] 20 mg Tablet 20 mg PO DAILY trazodone 100 mg Tablet 100 mg PO DAILY lorazepam 2 mg Tablet 2 mg PO Q6H PRN PRN (Reason: Anxiety) lorazepam [Ativan] 2 mg Tablet 2 mg PO TID amlodipine [Norvasc] 10 mg Tablet 10 mg PO DAILY ferrous sulfate [FeroSul] 325 mg (65 mg iron) Tablet 325 mg PO BID divalproex [Depakote ER] 500 mg Tablet Extended Release 24 Hr 500 mg PO BID benztropine 1 mg Tablet 1 mg PO BID folic acid 1 mg Tablet 1 mg PO DAILY hydrochlorothiazide 25 mg Tablet 25 mg PO DAILY propranolol [Inderal LA] 120 mg Capsule,Extended Release 24 Hr 120 mg PO DAILY fluticasone propionate 50 mcg/actuation [place],Suspension 1 spray INTRANASAL DAILY Rx Instructions: administer into each nostril fludrocortisone 0.1 mg Tablet 0.1 mg PO DAILY escitalopram oxalate [Lexapro] 10 mg Tablet 10 mg PO BID quetiapine [Seroquel XR] 300 mg Tablet Extended Release 24 Hr 600 mg PO QHS Fanapt 6 mg tablet 6 mg PO DAILY Fanapt 12 mg tablet 12 mg PO DAILY Metamucil 3.4 gram/5.4 gram Powder 1 tbsp PO DAILY Rx Instructions: mix into at least 8 oz of water or juice before administering aspirin 81 mg Capsule 81 mg PO DAILY Referrals / Follow Up: Lex Jiang MD [Primary Care Provider] - Within 2 Weeks Disposition Disposition (needs filled in before D/C Order can be placed): Longterm Facility
--- NOTE | 2022-06-06 11:18 | DS.PCM_ITS ---
Providers Date of Admission: 06/04/22 Date of Discharge: 06/06/22 Primary Care Physician: Dr. Lex Jiang MD Reason For Visit: ACUTE VIRAL SYNDROME, MUCOUS PLUGGING, HYPOXIA Diagnosis Discharge Diagnosis (1) Hypoxia: Status: Acute Code(s): R09.02 - Hypoxemia (2) Mucus plugging of bronchi: Status: Acute Code(s): T17.500A - Unspecified foreign body in bronchus causing asphyxiation, initial encounter (3) Hypokalemia: Status: Acute Code(s): E87.6 - Hypokalemia Medications at Discharge Home Medications albuterol sulfate 0.63 mg/3 mL solution for nebulization 0.63 mg inhalation Q4H PRN PRN SOB 06/04/22 amlodipine 10 mg tablet (Norvasc) 10 mg PO DAILY 06/04/22 aspirin 81 mg capsule 81 mg PO DAILY 06/04/22 benztropine 1 mg tablet 1 mg PO BID 06/04/22 calcium 500 mg tablet 500 mg PO BID 06/04/22 carvedilol 12.5 mg tablet 12.5 mg PO BID 06/04/22 cyanocobalamin (vitamin B-12) 1,000 mcg tablet 1,000 mcg PO QWEEK 06/04/22 divalproex 500 mg tablet,extended release 24 hr (Depakote ER) 500 mg PO BID 06/04/22 ergocalciferol (vitamin D2) 50,000 unit tablet 50,000 unit PO QWEEK 06/04/22 escitalopram oxalate 10 mg tablet (Lexapro) 10 mg PO BID 06/04/22 famotidine 20 mg tablet (Pepcid) 20 mg PO DAILY 06/04/22 ferrous sulfate 325 mg (65 mg iron) tablet (FeroSul) 325 mg PO BID 06/04/22 fludrocortisone 0.1 mg tablet 0.1 mg PO DAILY 06/04/22 fluticasone propionate 50 mcg/actuation nasal spray,suspension 1 spray intranasal DAILY 06/04/22 folic acid 1 mg tablet 1 mg PO DAILY 06/04/22 hydrochlorothiazide 25 mg tablet 25 mg PO DAILY 06/04/22 iloperidone 12 mg tablet (Fanapt) 12 mg PO DAILY 06/04/22 iloperidone 6 mg tablet (Fanapt) 6 mg PO DAILY 06/04/22 lorazepam 2 mg tablet 2 mg PO Q6H PRN PRN Anxiety 06/04/22 lorazepam 2 mg tablet (Ativan) 2 mg PO TID 06/04/22 lorazepam 2 mg/mL injection solution (Ativan) 2 mg IV Q6H PRN PRN Anxiety 06/04/22 propranolol 120 mg capsule,24 hr,extended release (Inderal LA) 120 mg PO DAILY 06/04/22 psyllium husk 3.4 gram/5.4 gram oral powder (Metamucil) 1 tbsp PO DAILY 06/04/22 quetiapine 300 mg tablet,extended release 24 hr (Seroquel XR) 600 mg PO QHS 1 08/05/21 trazodone 100 mg tablet 100 mg PO DAILY 06/04/22 guaifenesin 1,200 mg tablet, extended release 12 hr (Mucus Relief ER) 1,200 mg PO BID #0 tabs 06/06/22 Hospital Course Operations None Procedures - (Modified barium swallow) Summary of Care Provided Minutes Spent on Discharge: 37 Hospital Course: Mr. Mac is a 52-year-old white male who resides at a nursing facility who presented to the emergency department on 06/04/2022 with shortness of breath, hypoxia, and a cough. He evidently had a 1 week history of progress ively worsening shortness of breath and cough however he worsened dramatically on the evening prior to presentation requiring 2 L of nasal cannula to be initiated. He developed her further hypoxia with oxygen saturations in the 60s despite oxygen utilization with aerosols initiated. He was placed on a nonrebreather and EMS was called. At the time of their initial evaluation his sats were noted to be in the 90s on a nonrebreather and he was brought to the emergency department. Work-up in the ED included T98.1, heart rate 57, BP 118/66, respiratory rate 14, 93% on room air initially however desaturated to 83%-->improved on added 2L NC, CBC with WBC 7.1, hemoglobin 12.2, platelet 154 with lymphopenia, BMP with potassium 2.6, chloride 96, carbon oxide 40, glucose 169, troponin 9, chest x-ray with no acute cardiopulmonary findings, rapid SARS COVID and influenza antigens negative, EKG with sinus bradycardia with nonspecific ST depressions noted with no acute evidence of ischemia with no comparison.? Per ED physician while in the ED the patient did have a couple episodes of desaturation down into the low 80s with concern for possibly mucous plugging with administration of oral Robitussin to assist with mucus as well as IV potassium supplementation. He was admitted to the medical floor and maintained on 2 L nasal cannula, given aggressive pulmonary toilet, placed on Mucinex and was evaluated by speech therapy. Respiratory viral panel was also obtained and found to be negative. During the course of his hospitalization his oxygen requirements decreased and he was on room air. He was noted to have hyperglycemia at the time of presentation. We obtain a hemoglobin A1c and was found to be 5.2 meaning he is not diabetic. I suspect his hyperglycemia was likely related to stress response. His potassium was low at 3.3 on repeat after 40 mill equivalents given and another 40 mill equivalent was given on the which resolved his hypokalemia. He was seen by physical and Occupational Therapy and will require placement back at his nursing facility. Speech therapy did a modified barium swallow on the patient which showed moderate oropharyngeal dysphagia with recommended diet of mechanical soft-minced/moist textures and thin liquids. He will be maintained on Mucinex at discharge as the only new medication that was added and does not require any supplemental oxygen at the time of discharge. He was discharged back to skilled facility in stable condition on 06/06/2022. Discharge diagnoses: Acute hypoxia without respiratory failure-resolved Hypokalemia-resolved Hyperglycemia Chronic iron deficiency anemia History of cyclic vomiting syndrome History of gastroparesis Dysphagia Hypertension Adrenal insufficiency Anxiety Depression Bipolar disorder Schizoaffective disorder Obesity Physical Exam Const alert, no apparent distress and well nourished Constitutional Narrative: Alert, oriented to self and place, appears comfortable, sitting upright in bed and nursing at bedside General Appearance: cooperative, comfortable, well kempt and well developed Orientation / Consciousness: awake, oriented to person and oriented to place Exam Limitations: other limitations Nutritional Appearance: obese HEENT normocephalic, head/scalp atraumatic and moist oral mucous membranes; Negative for hearing grossly normal bilaterally HEENT Narrative: Dentition is fair, Mallampati is 2-3, no thrush, mild hearing loss Eyes PERRL, EOMs intact bilaterally and conjunctivae normal Eyes Narrative: No scleral icterus Neck no lymphadenopathy and supple Neck Narrative: Trachea midline, no thyroid enlargement Resp normal respiratory effort, no retractions, no use of accessory muscles and clear to auscultation bilaterally Resp Narrative: On room air, no signs of any type of respiratory compromise Auscultation: Negative for crackles, rhonchi or wheezes Cardio regular rate, regular rhythm, S1 normal heart sound, S2 normal heart sound, no rub, no gallops and no clicks Cardio Narrative: 2 out of 6 systolic murmur louder at right upper sternal border GI normal to inspection, nondistended, normoactive bowel sounds, soft to palpation and non-tender Extremity no clubbing, cyanosis or edema Extremity Narrative: 2+ pedal pulses Skin no rashes or lesions noted, no wounds, skin turgor normal and no jaundice Skin Narrative: Skin is pale Neuro oriented x3, moves all extremities, no focal motor deficits and no sensory deficits noted Neuro Narrative: Impaired vision with history of legal blindness but all other cranial nerves are normal, moves all extremities symmetrically Speech: speech normal Psych Psych Narrative: Patient with tangential thought process, affect is strange Weight / BMI Weight Weight: 91 kg Body Mass Index (BMI) 30.5 ABG / Lab / Microbiology Data Result Diagrams: 06/05/22 04:24 06/06/22 06:20 Laboratory: Laboratory Results - last 24 hr 06/06/22 06:20: Sodium 144, Potassium 3.8, Chloride 104, Carbon Dioxide 37.0 H, Anion Gap 3 L, BUN 7, Creatinine 0.67 L, Estim Creat Clear Calc 124.78, Est GFR (MDRD) Af Amer 161, Est GFR (MDRD) Non-Af 133, BUN/Creatinine Ratio 10.5, Glucose 118 H, Calcium 8.4 L Microbiology: Microbiology 06/04/22 03:31 Mucosa - Nasopharyngeal Respiratory Panel (PCR) - Final 06/04/22 02:03 Nasal Secretion SARS-CoV-2 & FLU Antigen (Rapid) - Final Meaningful Use Info Meaningful Use Diagnoses (Choose all that apply): None applicable Discharge Plan Admission Admit Date/Time: 06/04/22 03:08 Primary Reason for Your Visit: Acute hypoxia Attending Provider: Lisa Solares Primary Care Provider: Lex Jiang Consulting Providers: Corrina Huerta Discharge Orders/Prescriptions Prescriptions: New Mucus Relief ER 1,200 mg Tablet Extended Release 12hr 1,200 mg PO BID Qty: 0 0RF Continued albuterol sulfate 0.63 mg/3 mL solution for nebulization 0.63 mg inhalation Q4H PRN PRN (Reason: SOB) carvedilol 12.5 mg Tablet 12.5 mg PO BID Rx Instructions: must administer with a meal/food lorazepam [Ativan] 2 mg/mL Solution 2 mg IV Q6H PRN PRN (Reason: Anxiety) Rx Instructions: until symptoms controlled calcium 500 mg Tablet 500 mg PO BID cyanocobalamin (vitamin B-12) 1,000 mcg Tablet 1,000 mcg PO QWEEK ergocalciferol (vitamin D2) 50,000 unit Tablet 50,000 unit PO QWEEK famotidine [Pepcid] 20 mg Tablet 20 mg PO DAILY trazodone 100 mg Tablet 100 mg PO DAILY lorazepam 2 mg Tablet 2 mg PO Q6H PRN PRN (Reason: Anxiety) lorazepam [Ativan] 2 mg Tablet 2 mg PO TID amlodipine [Norvasc] 10 mg Tablet 10 mg PO DAILY ferrous sulfate [FeroSul] 325 mg (65 mg iron) Tablet 325 mg PO BID divalproex [Depakote ER] 500 mg Tablet Extended Release 24 Hr 500 mg PO BID benztropine 1 mg Tablet 1 mg PO BID folic acid 1 mg Tablet 1 mg PO DAILY hydrochlorothiazide 25 mg Tablet 25 mg PO DAILY propranolol [Inderal LA] 120 mg Capsule,Extended Release 24 Hr 120 mg PO DAILY fluticasone propionate 50 mcg/actuation [place],Suspension 1 spray INTRANASAL DAILY Rx Instructions: administer into each nostril fludrocortisone 0.1 mg Tablet 0.1 mg PO DAILY escitalopram oxalate [Lexapro] 10 mg Tablet 10 mg PO BID quetiapine [Seroquel XR] 300 mg Tablet Extended Release 24 Hr 600 mg PO QHS Fanapt 6 mg tablet 6 mg PO DAILY Fanapt 12 mg tablet 12 mg PO DAILY Metamucil 3.4 gram/5.4 gram Powder 1 tbsp PO DAILY Rx Instructions: mix into at least 8 oz of water or juice before administering aspirin 81 mg Capsule 81 mg PO DAILY Referrals / Follow Up: Lex Jiang MD [Primary Care Provider] - Within 2 Weeks Disposition Disposition (needs filled in before D/C Order can be placed): [facility] Charges/Coding Visit Charges Inpatient E&M: 20976 SNF Disch >30 Min
--- NOTE | 2022-06-06 14:20 | ST.MBS ---
Modified Barium Swallow - Patient Information Study Date: 06/06/22 Study Time: 12:30 Direct Billable Minutes: 110 Total Minutes procedure & reportin Diagnosis: Hypoxia (R09.02) Referring Physician: Lisa Solares Reason for Referral: Objectively assess swallow function, assess risk for aspiration, and determine recommendations for least restrictive diet textures and compensatory strategies to improve safety of swallow. Medical History: The patient is a 52-year-old male w/ PMHx: Adrenocortical insufficiency, Chronic dysphagia, Obesity, Asthma/COPD, Anxiety and Depression/Intermittent explosive disorder/Schizoaffective disorder, HTN, Chronic anemia/Fe deficiency anemia, and Hx cyclic vomiting and gastroparesis who presents from extended care facility to the [facility] ED on 06/04/22 with history of ~ 1 week of progressively worsening dyspnea and cough. Chest x-ray with no acute cardiopulmonary findings, rapid SARS COVID and influenza antigens negative. Pt was admitted for management of acute viral syndrome, mucous plugging, and hypoxia. Pt admitted to [facility] on minced and moist textures / thin liquids. Per hard chart from group home, the patient was on regular textures, chopped meats, sandwiches cut up, liquids by wide rimmed cup. He was referred for ST consult due to history of dysphagia and coughing with liquids with RN. Following BSE 06/04/22 he was recommended for easy to chew texture/minced & moist meat/thin liquid diet w/ liquids by straw, small bites/sips, slow rate of intake, HOB 90 for intake, supervised intake. During dysphagia treatment 06/05/22, he was observed to have overt s/s aspiration following 50% of liquid trials. Additionally, when consuming dimitry crackers with thin liquids to soften each bite, he experienced significant coughing/choking episode which required 2-3 minutes of coughing to recover. He was referred for MBSS to objectively assess aspiration risk. Current Diet Ordered: Easy to Chew / Minced & Moist meats / Thin Liquids Mental Status: Impaired - Poor attention to task Respiratory Status: Oxygenating on Room Air - Penetration-Aspiration Scale Penetration-Aspiration Scale: OBJECTIVE ASSESSMENT OF SWALLOW FUNCTION (QUANTITATIVE ? PER TRIAL): PENETRATION / ASPIRATION SCALE (VALERIO): 1 = does not enter airway 2 = enters airway/above vocal folds/ejected 3 = enters airway/above vocal folds/not ejected 4 = enters airway/contacts vocal folds/ejected 5 = enters airway/contacts vocal folds/not ejected 6 = enters airway/below vocal folds/ejected 7 = enters airway/below vocal folds/not ejected despite effort 8 = enters airway/below vocal folds/no effort VIDEOFLOROSCOPIC SCALE SCORE (VALERIO): Grade I = aspiration of material that has penetrated into the laryngeal vestibule, intact cough reflex Grade II = aspiration < 10 % of the bolus, intact cough reflex Grade III = aspiration of < 10 % of the bolus, reduced cough reflex or aspiration of > 10 % of the bolus, intact cough reflex Grade IV = aspiration of > 10 % of the bolus, reduced cough reflex - Penetration-Aspiration Scale Score Thin Liquid via teaspoon Result: 2= enter airway/above vocal folds/ejected Thin Liquid via teaspoon Trial 2 Result: 2= enter airway/above vocal folds/ejected Thin Liquid via large single sip from cup Result: 3= enters airways/above vocal folds/not ejected Thin Liquid via sequential sips from cup Result: 8= enters airway/below vocal folds/no effort Whitefish Thick Liquid via sequential sips from cup Result: 5= enters airways/contacts vocal folds/not ejected Honey Thick Liquid via teaspoon Result: 1= does not enter airway Pudding via teaspoon Result: 1= does not enter airway 1/4 Cookie Result: 1= does not enter airway - Pt's first attempt of the swallow resulted in no oral or pharyngeal clearance of the cookie. PT REQUIRED 3 VERBAL CUES TO INITIATE A SECOND SWALLOW. When asked by UX INTERACTION DESIGNER after the trial was completed if he felt he had cookie in his throat during the trial, he stated not really. Thin Liquid via single sip from straw Result: 7= enters airways/below vocal folds/not ejected despite effort - delayed cough Thin Liquid via small single sip from cup Result: 1= does not enter airway - Oral Phase Labial Seal: Escape beyond interlabial space; no extension beyond sven border Bolus Preparation/Mastication: Disorganized chewing/mashing with solid pieces of bolus unchewed Bolus Transport/Lingual Motion: Slowed tongue motion Oral Residue: Residue collection on oral structures - Pharyngeal Phase Initiation of Pharyngeal Swallow: No visible initiation at any location - 3 verbal cues required to initiate swallowing the cookie trial Soft Palate Elevation: Trace column of contrast/air between soft palate and pharyngeal wall Laryngeal Elevation: Partial superior movement thyroid cart/partial apprx aryt-epig petiole Anterior Hyoid Excursion: Partial anterior movement Epiglottic Movement: No inversion Laryngeal Vestibule Closure at Height of Swallow: Incomplete; narrow column of air/contrast in laryngeal vestibule Pharyngeal Stripping Wave: Present - diminished Pharyngoesophageal Segment Opening: Parital distension and partial duration; parital obstruction of flow Tongue Base Retraction: Wide column of contrast between tongue base & post. pharyngeal wall - cookie Pharyngeal Residue: Collection of residue within or on pharyngeal structures - Treatment Strategies Effects of treatment strategies attemped:: Decreased bolus size = effective. - Diagnosis/Impression Diagnosis: Moderate oropharyngeal phase dysphagia (R13.12) Impression: The oral phase is primarily marked by... -Decreased bolus control with <1/2 of the bolus spilling posteriorly to the laryngeal vestibule and pyriforms prior to swallow onset observed with thin and nectar thick liquids especially. -Mild oral residue of pudding after the swallow, which mostly cleared with independent initiation of multiple swallows. -Decreased mastication of 1/4 of cookie with pieces of the cookie appearing unchewed. After the first swallow, he demonstrated no oral or pharyngeal clearance of the cookie. He required 3 verbal cues to initiate a second swallow of the cookie, as he stated he had already swallowed it. The pharyngeal phase is primarily marked by... -Decreased airway closure during the swallow due to decreased anterior hyoid excursion, no epiglottic inversion, and decreased laryngeal elevation. -Moderately decreased tongue base retraction, mildly decreased UES opening/duration, and little pharyngeal stripping wave with resulting moderate-severe pharyngeal residues after the swallow. -Aspiration of thin liquids by sequential cup and straw. Laryngeal penetration of sequential sips of nectar thick liquids to the vocal folds without full ejection. Use of decreased bolus size and rate were most effective in decreasing risk for aspiration. -The patient is at increased risk for choking on solid textures due to poor oral and pharyngeal clearance of cookie on the first swallow and need for verbal cues to initiate a second swallow to adequately clear the bite. - Recommendations Diet: Mechanical Soft Textures - Minced and Moist textures (IDDSI Level 5), Thin Liquids Compensatory Strategies: Small Bites, Small Sips, No Straws, Slow Rate - Sips and bites one at a time, Alternate bites/solids and sips/liquids, Sitting upright, Minimize/decrease distractions Supervision: 1:1 Close Supervision - Assist feeding as needed to help patient control rate of oral intake as patient is very impulsive Recommend Repeat Modified Barium Swallow: TBD Need for Skilled Speech Therapy Services: Yes Comment: Per RNAleksander, the patient will be discharging today. Will recommend the patient for continued dysphagia therapy at next level of care to address deficits in oropharyngeal swallow function. Will recommend the patient for oropharyngeal strengthening to improve lingual control, laryngeal elevation, hyoid excursion, tongue base retraction, and pharyngeal contraction. The patient would benefit from thorough education regarding diet recommendations and recommended compensatory strategies. Would consider the patient for 10cc bolus control cup (Provale) if unable to control his rate of intake with liquids. Education Completed: 1. Described result of evaluation., 7. Pt requires further education on strategies & risks. - Status Active ST Patient: Active - Contact Information [facility] Speech Therapy:: Cristina Coburn M.A. [facility] INTER[employer] DESIGNER Speech-Language Pathologist [facility] [address] [place] [address] [email or web address] [phone] 06/06/22 14:26
[2022-06-06] MEDS: Ferrous Sulfate 325 MG Tablet PO (16:09)
--- NOTE | 2022-06-06 16:11 | CASEMGMT ---
Social Work Per physician, pt is ready for discharge today. Discharge Orders and covid results faxed to [facility]. [facility] call to [facility] who confirms they can accept pt back today. Transportation arranged with [facility] for 5:30 pickup via cot. Pt Guardian Courtney Oates called and updated on discharge time. [facility] notified of discharge time. Disposition: [facility], intermediate level of care YOLI Mcqueen
== END 2022-06-06 18:20 | disposition skilled nursing facility (03) | DRG 206 ==
LOC: ED 03:08 → MS3 03:40
PROVIDERS: Admitting Provider Family Medicine; Emergency Provider Emergency Medicine; PCP Family Medicine; Visit Provider Internal Medicine
DX: R09.02 Hypoxemia (principal); E27.40 Unspecified adrenocortical insufficiency; F25.9 Schizoaffective disorder, unspecified; F31.9 Bipolar disorder, unspecified; J44.9 Chronic obstructive pulmonary disease, unspecified; E87.6 Hypokalemia; D50.9 Iron deficiency anemia, unspecified; I10 Essential (primary) hypertension; F41.9 Anxiety disorder, unspecified; R00.1 Bradycardia, unspecified; F63.81 Intermittent explosive disorder; H54.8 Legal blindness, as defined in USA; R73.9 Hyperglycemia, unspecified; R13.10 Dysphagia, unspecified; E66.9 Obesity, unspecified; Z20.822 Contact with and (suspected) exposure to COVID-19; Z68.30 Body mass index [BMI] 30.0-30.9, adult
CPT/HCPCS: 36415; 71045; 74230; 80048; 80053; 82607; 82728; 82746; 83036; 83540; 83550; 83735; 84145; 84443; 84484; 85025; 87428; 87633; 92526; 92610; 92611; 93005; 94640; 94762; 97162; 97166; 97530; 97535; 99251; 99285; J7030; A4216; G0463

== ENCOUNTER 2022-06-15 23:36 | Emergency (ER) | payer MEDICARE, MEDICAID, SELFPAY ==
--- NOTE | 2022-06-15 00:10 | RAD_ITS ---
EXAM: XR CHEST, 1 VIEW CLINICAL INDICATION: dyspnea TECHNIQUE: Frontal view of the chest. This report was created using [employer] report generation technology. COMPARISON: June 04, 2022 FINDINGS: LUNGS AND PLEURAL SPACES: Atelectasis versus infiltrate at the retrocardiac region of the left lower lobe. Mild subsegmental atelectasis at the right lung base. Overall lung findings are lower compared to the prior study. No pleural effusion or pneumothorax. HEART: Fullness of the cardiac silhouette on a portable view with low lung volumes. MEDIASTINUM: Central airways and mediastinal contour are unremarkable. BONES/JOINTS: Degenerative changes of the spine. SOFT TISSUES: Unremarkable. RAD/Chest 1 View (Portable) IMPRESSION: Atelectasis versus infiltrate at the retrocardiac region of the left lower lobe. Suggest further evaluation with upright PA and lateral chest radiography. Electronically Signed: Luis Leblanc MD at 0:41 EST ,
[2022-06-15 23:37] VITALS: BP 121/74; PULSE 51; RESP 15; TEMP 36.1; O2SAT 95; BMI 32.7
--- NOTE | 2022-06-15 23:50 | EDS_ITS ---
HPI History of Present Illness Chief Complaint: Shortness of Breath Narrative Narrative: Patient is a 52-year-old male with past medical history of schizoaffective disorder COPD hypertension and cyclic vomiting syndrome. He stays at a long- term acute care facility for the mentally disabled. He has been seen previously for hypoxia which was found to be due to a mucous plug. Reportedly this evening he reported feeling increased shortness of breath and they checked his pulse ox and it was low at 76 so EMS was called. EMS placed the patient on oxygen and his pulse ox improved. residential reports that patient is at his baseline mental status. Upon arrival to the ER patient has no complaints [facility] Medical History Adrenocortical insufficiency Anemia Anxiety Asthma COPD (chronic obstructive pulmonary disease) Cyclical vomiting Gastroparesis Hypertension Hypocalcemia Intermittent explosive disorder Legally blind Schizo affective schizophrenia Thrombocythemia Home Medications albuterol sulfate 0.63 mg/3 mL solution for nebulization 0.63 mg inhalation Q4H PRN PRN SOB 06/04/22 [History Last Taken Unknown] amlodipine 10 mg tablet (Norvasc) 10 mg PO DAILY 06/04/22 [History Last Taken Unknown] aspirin 81 mg capsule 81 mg PO DAILY 06/04/22 [History Last Taken Unknown] benztropine 1 mg tablet 1 mg PO BID 06/04/22 [History Last Taken Unknown] calcium 500 mg tablet 500 mg PO BID 06/04/22 [History Last Taken Unknown] carvedilol 12.5 mg tablet 12.5 mg PO BID 06/04/22 [History Last Taken Unknown] cyanocobalamin (vitamin B-12) 1,000 mcg tablet 1,000 mcg PO QWEEK 06/04/22 [History Last Taken Unknown] divalproex 500 mg tablet,extended release 24 hr (Depakote ER) 500 mg PO BID 06/04/22 [History Last Taken Unknown] ergocalciferol (vitamin D2) 50,000 unit tablet 50,000 unit PO QWEEK 06/04/22 [History Last Taken Unknown] escitalopram oxalate 10 mg tablet (Lexapro) 10 mg PO BID 06/04/22 [History Last Taken Unknown] famotidine 20 mg tablet (Pepcid) 20 mg PO DAILY 06/04/22 [History Last Taken Unknown] ferrous sulfate 325 mg (65 mg iron) tablet (FeroSul) 325 mg PO BID 06/04/22 [History Last Taken Unknown] fludrocortisone 0.1 mg tablet 0.1 mg PO DAILY 06/04/22 [History Last Taken Unknown] fluticasone propionate 50 mcg/actuation nasal spray,suspension 1 spray intranasal DAILY 06/04/22 [History Last Taken Unknown] folic acid 1 mg tablet 1 mg PO DAILY 06/04/22 [History Last Taken Unknown] hydrochlorothiazide 25 mg tablet 25 mg PO DAILY 06/04/22 [History Last Taken Unknown] iloperidone 12 mg tablet (Fanapt) 12 mg PO DAILY 06/04/22 [History Last Taken Unknown] iloperidone 6 mg tablet (Fanapt) 6 mg PO DAILY 06/04/22 [History Last Taken Unknown] lorazepam 2 mg tablet 2 mg PO Q6H PRN PRN Anxiety 06/04/22 [History Last Taken Unknown] lorazepam 2 mg tablet (Ativan) 2 mg PO TID 06/04/22 [History Last Taken Unknown] lorazepam 2 mg/mL injection solution (Ativan) 2 mg IV Q6H PRN PRN Anxiety 06/04/22 [History Last Taken Unknown] propranolol 120 mg capsule,24 hr,extended release (Inderal LA) 120 mg PO DAILY 06/04/22 [History Last Taken Unknown] psyllium husk 3.4 gram/5.4 gram oral powder (Metamucil) 1 tbsp PO DAILY 06/04/22 [History Last Taken Unknown] quetiapine 300 mg tablet,extended release 24 hr (Seroquel XR) 600 mg PO QHS 06/04/22 [History Last Taken Unknown] trazodone 100 mg tablet 100 mg PO DAILY 06/04/22 [History Last Taken Unknown] guaifenesin 1,200 mg tablet, extended release 12 hr (Mucus Relief ER) 1,200 mg PO BID #0 tabs 06/06/22 [Rx Last Taken Unknown] clindamycin HCl 300 mg capsule 300 mg PO 4X/DAY 10 days #40 caps 06/16/22 [Rx Last Taken Unknown] levofloxacin 750 mg tablet 750 mg PO DAILY 10 days #10 tabs 06/16/22 [Rx Last Taken Unknown] Allergy/AdvReac Type Severity Reaction Status Date / Time acetic acid Allergy PT UNABLE Verified 06/15/22 23:39 TO RESPOND-NEEDS F/U nut - unspecified [nuts] Allergy PT UNABLE Verified 06/15/22 23:39 TO RESPOND-NEEDS F/U Penicillins Allergy PT UNABLE Verified 06/15/22 23:39 TO RESPOND-NEEDS F/U risperidone Allergy PT UNABLE Verified 06/15/22 23:39 TO RESPOND-NEEDS F/U Social History (Updated 06/04/22 @ 03:[address] Corrina Huerta MD) housing: other details: Nursing facility with psychiatric focus. Smoking Status: Unknown if ever smoked alcohol intake: never substance use type: does not use ROS ROS ED ROS Narrative Please note review of systems may be unreliable secondary to patient's history of schizoaffective disorder Constitutional Constitutional ED: Denies chills or fever(s) ENT ENT ED: Denies sore throat Cardiovascular Cardiovascular: Denies chest pain Respiratory/Chest Respiratory/Chest: Reports cough and dyspnea Gastrointestinal Gastrointestinal: Denies abdominal pain, diarrhea, nausea or vomiting Genitourinary Genitourinary ED: Denies dysuria Musculoskeletal Musculoskeletal: Denies myalgias Integumentary Denies rash Neurologic Neurologic: Denies headache(s) Hematologic/Lymphatic Hematologic/Lymphatic: Denies easy bleeding or easy bruising EXAM Physical Exam Const Vital Signs: 06/15/22 23:37 06/15/22 23:55 06/16/22 00:16 Temperature 97 F L Temperature Source Temporal Pulse Rate 51 L 52 L Respiratory Rate 15 21 H Respiratory Effort Normal Respiratory Depth Normal Respiratory Pattern Normal Blood Pressure 121/74 H Blood Pressure Mean 89 Pulse Ox 95 Oxygen Delivery Method Room Air Nasal Cannula Oxygen Flow Rate (L/min) 2 Positive well nourished and well developed General Appearance ED: well developed HEENT Reports dry mucous membranes HEENT Narrative: No tongue or lip swelling no oral lesions no airway edema or compromise Mouth ED: Yes dry mucous membranes Mouth: dry mucous membranes Neck supple and no JVD Resp normal respiratory effort Resp Narrative: Breath sounds are diminished throughout with faint expiratory wheeze diffusely but otherwise no nasal flaring retractions tachypnea or accessory muscle use Cardio regular rhythm Rate: bradycardia and other Other Details: Radial pulses are plus 2 out of 4 bilaterally are equal and symmetric GI normal to inspection, nondistended, normoactive bowel sounds, non-tender, non- distended and no masses Auscultation: normoactive bowel sounds Palpation: soft Extremity Extremity Narrative: No asymmetric edema no pitting edema negative Homans' sign bilaterally Neuro CN's II-XII intact bilaterally Sensorium / Orientation: alert Psych Psych Narrative: Patient has a flat/depressed affect Skin no rashes or lesions noted MDM MDM MDM Narrative Medical decision making narrative: Patient presented to the ER at his baseline mental status he was taken off oxygen and his pulse ox was reading in the mid 90s and he was in no respiratory distress. At this time it is unknown if he had another mucous plug or what caused reported hypoxia by the residential. Therefore I elected to watch the patient for 1 to 2 hours off oxygen and his pulse ox did drop to about 87%. He was given a nebulizer treatment and placed on 2 L nasal cannula and his pulse ox returned into the low to mid 90s. I did elect to perform a chest x-ray as well to check for possible cause of the hypoxia as his most recent work-up did show he has difficulty with swallowing. Chest x-ray question the retrocardiac pneumonia so I like to perform a noncontrast CT for confirmation. CT scan did show changes in the right upper middle and lower lobe as well as in the left lower lobe concerning for pneumonia. I do feel this is most likely aspiration based on his recent barium swallow study. Finding the patient is maintaining an oxygen value in the mid 90s on just 2 L his blood pressure is normal he is at h is baseline mental status he is afebrile and he is in no acute respiratory distress. Therefore I do not believe he needs to be admitted for IV antibiotics and we can attempt outpatient therapy if he can swallow his pills without difficulty. As he has a penicillin allergy he was given clindamycin and Levaquin. He was able to take the pills with applesauce without difficulty. Therefore I feel we can try these medications in an outpatient basis and if he is failing therapy he can return to the hospital for repeat evaluation and possible admission Radiography Diagnostic Testing: Clinical Impression(s) from Imaging Studies Chest X-Ray 06/15/22 00:10 IMPRESSION: Atelectasis versus infiltrate at the retrocardiac region of the left lower lobe. Suggest further evaluation with upright PA and lateral chest radiography. Electronically Signed: Luis Leblanc MD at 0:41 EST , Chest CT 06/16/22 00:58 IMPRESSION: There is a suspicious nodule in the posterior segment of the right lung upper lobe measures 1.2 cm may represent a neoplastic process. Follow evaluation by PET scan may be warranted. Patchy airspace opacities are seen in the right upper lobe, right lower lobe and right middle and left lower lobe suggesting bilateral pneumonia. Electronically Signed: Jennifer Dowd MD at 1:53 EST , Chest x-ray as interpreted by the emergency medicine physician reveals poor inspiration with questionable hazy opacity in the retrocardiac space Discharge Plan Triage Chief Complaint: Shortness of Breath ED Provider: Luis Sosa Dx/Rx/DC Orders Clinical Impression: Pneumonia, Lung mass Instructions: ED Pneumonia (Adult) Prescriptions: New clindamycin HCl 300 mg capsule 300 mg PO 4X/DAY 10 Days Qty: 40 0RF levofloxacin 750 mg tablet 750 mg PO DAILY 10 Days Qty: 10 0RF No Action albuterol sulfate 0.63 mg/3 mL solution for nebulization 0.63 mg inhalation Q4H PRN PRN (Reason: SOB) carvedilol 12.5 mg Tablet 12.5 mg PO BID Rx Instructions: must administer with a meal/food lorazepam [Ativan] 2 mg/mL Solution 2 mg IV Q6H PRN PRN (Reason: Anxiety) Rx Instructions: until symptoms controlled calcium 500 mg Tablet 500 mg PO BID cyanocobalamin (vitamin B-12) 1,000 mcg Tablet 1,000 mcg PO QWEEK ergocalciferol (vitamin D2) 50,000 unit Tablet 50,000 unit PO QWEEK famotidine [Pepcid] 20 mg Tablet 20 mg PO DAILY trazodone 100 mg Tablet 100 mg PO DAILY lorazepam 2 mg Tablet 2 mg PO Q6H PRN PRN (Reason: Anxiety) lorazepam [Ativan] 2 mg Tablet 2 mg PO TID amlodipine [Norvasc] 10 mg Tablet 10 mg PO DAILY ferrous sulfate [FeroSul] 325 mg (65 mg iron) Tablet 325 mg PO BID divalproex [Depakote ER] 500 mg Tablet Extended Release 24 Hr 500 mg PO BID benztropine 1 mg Tablet 1 mg PO BID folic acid 1 mg Tablet 1 mg PO DAILY hydrochlorothiazide 25 mg Tablet 25 mg PO DAILY propranolol [Inderal LA] 120 mg Capsule,Extended Release 24 Hr 120 mg PO DAILY fluticasone propionate 50 mcg/actuation [place],Suspension 1 spray INTRANASAL DAILY Rx Instructions: administer into each nostril fludrocortisone 0.1 mg Tablet 0.1 mg PO DAILY escitalopram oxalate [Lexapro] 10 mg Tablet 10 mg PO BID quetiapine [Seroquel XR] 300 mg Tablet Extended Release 24 Hr 600 mg PO QHS Fanapt 6 mg tablet 6 mg PO DAILY Fanapt 12 mg tablet 12 mg PO DAILY Metamucil 3.4 gram/5.4 gram Powder 1 tbsp PO DAILY Rx Instructions: mix into at least 8 oz of water or juice before administering aspirin 81 mg Capsule 81 mg PO DAILY Mucus Relief ER 1,200 mg Tablet Extended Release 12hr 1,200 mg PO BID Qty: 0 0RF Primary Care Provider: Lex Jiang Referrals: Lex Jiang MD [Primary Care Provider] - Activity Restrictions/Additional Instructions: Please discuss with your doctor about obtaining a outpatient PET scan based on the mass found on your CAT scan today. The CAT scan also indicates you have pneumonia so take the antibiotics as directed but if symptoms are worsening please return to the hospital for repeat evaluation. Continue with nasal cannula oxygen and breathing treatments to help with any further shortness of breath Disposition Disposition: Home, Self Care
[2022-06-15] MEDS: Ipratropium/Albuterol Sulfate 3 ML AMPUL.NEB INHALATION (23:54)
[2022-06-15 23:55] VITALS: PULSE 52; RESP 21
[2022-06-16 00:16] VITALS: O2SAT 94
[2022-06-16 00:36] VITALS: BP 139/70; PULSE 52; RESP 20; O2SAT 87
--- NOTE | 2022-06-16 00:58 | CT_ITS ---
INDICATION: abnormal cxr EXAMINATION: CT CHEST WITHOUT CONTRAST - CT Chest W/O Contrast Injection TECHNIQUE: Helically acquired images were obtained of the chest. A radiation dose optimization technique was used for this scan. IV Contrast dosage and agent: None. COMPARISON: None. FINDINGS: LUNGS, PLEURA AND LARGE AIRWAYS: There is a suspicious nodule in the posterior segment of the right lung upper lobe measures 1.2 cm may represent a neoplastic process. Patchy airspace opacities are seen in the right upper lobe, right lower lobe and right middle and left lower lobe suggesting bilateral pneumonia. No pleural effusion or thickening. No pneumothorax. THYROID: No thyroid lesions. HEART AND PERICARDIUM: Heart size is normal. No pericardial effusion. CORONARY ARTERIES: Coronary artery calcification VESSELS: Thoracic aorta is not dilated. MEDIASTINUM AND GENESIS: Right paratracheal lymphadenopathy may represent reactive lymphoid hyperplasia. Esophagus is unremarkable. There is a small hiatal hernia. UPPER ABDOMEN: No acute pathology. BONES: No suspicious lytic or blastic abnormality. CT/Chest without Contrast IMPRESSION: There is a suspicious nodule in the posterior segment of the right lung upper lobe measures 1.2 cm may represent a neoplastic process. Follow evaluation by PET scan may be warranted. Patchy airspace opacities are seen in the right upper lobe, right lower lobe and right middle and left lower lobe suggesting bilateral pneumonia. Electronically Signed: Jennifer Dowd MD at 1:53 EST ,
[2022-06-16 01:00] VITALS: BP 118/78; PULSE 51; RESP 16; O2SAT 91
[2022-06-16 02:00] VITALS: BP 112/61; PULSE 53; RESP 16; O2SAT 96
[2022-06-16] MEDS: levoFLOXacin 750 MG Tablet PO (02:19)
[2022-06-16] MEDS: Clindamycin HCl 150 MG Capsule 300 MG PO (02:19)
== END 2022-06-16 07:00 | disposition home or self-care (01) ==
PROVIDERS: Emergency Provider Emergency Medicine; PCP Family Medicine; Visit Provider Emergency Medicine
DX: J18.9 Pneumonia, unspecified organism (principal); J44.9 Chronic obstructive pulmonary disease, unspecified; R13.10 Dysphagia, unspecified; I10 Essential (primary) hypertension; F79 Unspecified intellectual disabilities; R09.02 Hypoxemia; R91.8 Other nonspecific abnormal finding of lung field
CPT/HCPCS: 71045; 71250; 94640; 99284

== ENCOUNTER 2022-07-24 15:06 | Inpatient (IN) | payer MEDICARE, MEDICAID, SELFPAY ==
[2022-07-24] VITALS (15 sets, daily range): BP systolic 66–120; BP diastolic 46–74; PULSE 53–65; RESP 13–17; TEMP 35.9–36.6; O2SAT 94–100; BMI 30.2
--- NOTE | 2022-07-24 15:23 | EDS_ITS ---
HPI History of Present Illness Chief Complaint: Shortness of Breath Informant: [facility] Limited: uncooperative Onset/Context/Timing Onset: Today Timing: Continuous Worsened by: Nothing Relieved by: Nothing Narrative Narrative: Patient presents with shortness of breath and altered mental status that was noticed today. Patient is a very poor informant. Patient only answers a few questions. Patient does not want to open his eyes. Staff at the [facility] reports that the patient was not acting right today and appeared to be having some shortness of breath. They also noted his blood pressure to be low and his oxygen saturation to be low. Patient would not tell me if he was having any pain. Patient would not tell me if he had a cough. [facility] Medical History Adrenocortical insufficiency Anemia Anxiety Asthma Bradycardia Cellulitis Chronic anal fissure COPD (chronic obstructive pulmonary disease) Cyclical vomiting Gastroparesis Hypertension Hypocalcemia Intermittent explosive disorder Legally blind Schizo affective schizophrenia Thrombocythemia Home Medications albuterol sulfate 0.63 mg/3 mL solution for nebulization 0.63 mg inhalation Q4H PRN Shortness Of Breath 06/04/22 [History Last Taken Unknown] amlodipine 10 mg tablet (Norvasc) 10 mg PO DAILY BLOOD PRESSURE 06/04/22 [History Last Taken 07/24/22 08:00] benztropine 1 mg tablet 1 mg PO BID 06/04/22 [History Last Taken 07/23/22] cyanocobalamin (vitamin B-12) 1,000 mcg tablet 1,000 mcg PO WE SUPPLEMENT 06/04/22 [History Last Taken 07/24/22 08:00] divalproex 500 mg tablet,extended release 24 hr (Depakote ER) 500 mg PO BID MENTAL HEALTH 06/04/22 [History Last Taken 07/24/22 08:00] escitalopram oxalate 10 mg tablet (Lexapro) 10 mg PO BID MENTAL HEALTH 06/04/22 [History Last Taken 07/24/22 08:00] famotidine 20 mg tablet (Pepcid) 20 mg PO DAILY ACID REFLUX 06/04/22 [History Last Taken 07/23/22] ferrous sulfate 325 mg (65 mg iron) tablet (FeroSul) 325 mg PO BID SUPPLEMENT 06/04/22 [History Last Taken 07/24/22 08:00] fludrocortisone 0.1 mg tablet 0.1 mg PO DAILY 06/04/22 [History Last Taken 07/24/22 08:00] fluticasone propionate 50 mcg/actuation nasal spray,suspension (Flonase Allergy Relief) 1 spray intranasal DAILY ALLERGIES 06/04/22 [History Last Taken 07/24/22 08:00] hydrochlorothiazide 25 mg tablet 25 mg PO DAILY BLOOD PRESSURE 06/04/22 [History Last Taken 07/24/22 08:00] iloperidone 12 mg tablet (Fanapt) 12 mg PO DAILY MENTAL HEALTH 06/04/22 [History Last Taken 07/23/22] iloperidone 6 mg tablet (Fanapt) 6 mg PO DAILY MENTAL HEALTH 06/04/22 [History Last Taken 07/24/22 08:00] lorazepam 2 mg tablet 2 mg PO TID AGITATION 06/04/22 [History Last Taken 07/24/22 14:00] lorazepam 2 mg tablet (Ativan) 2 mg PO Q6H PRN Agitation 06/04/22 [History Last Taken Unknown] lorazepam 2 mg/mL injection solution (Ativan) 2 mg IV Q6H PRN AGITSTION 06/04/22 [History Last Taken Unknown] psyllium husk 3.4 gram/5.4 gram oral powder (Metamucil) 1 tbsp PO DAILY 06/04/22 [History Last Taken 07/24/22 08:00] quetiapine 300 mg tablet,extended release 24 hr (Seroquel XR) 600 mg PO QHS MENTAL HEALTH 06/04/22 [History Last Taken 07/23/22] trazodone 100 mg tablet 100 mg PO DAILY MENTAL HEALTH 06/04/22 [History Last Taken 07/23/22] aluminum-mag hydroxide-simethicone 200 mg-200 mg-20 mg/5 mL oral susp 30 ml PO Q4H PRN Heartburn 07/24/22 [History Last Taken Unknown] aspirin 81 mg tablet,delayed release 81 mg PO DAILY HEART HEALTH 07/24/22 [History Last Taken 07/24/22 08:00] bisacodyl 10 mg rectal suppository (Dulcolax (bisacodyl)) 10 mg MO DAILY PRN Constipation 07/24/22 [History Last Taken Unknown] calcium carbonate 500 mg calcium (1,250 mg) tablet 500 mg PO BID SUPPLEMENT 07/24/22 [History Last Taken 07/24/22 08:00] cholecalciferol (vitamin D3) 50 mcg (2,000 unit) tablet (Vitamin D3) 50 mcg PO DAILY SUPPLEMENT 07/24/22 [History Last Taken 07/24/22 08:00] famotidine 20 mg tablet (Pepcid) 20 mg PO DAILY ACID REFLUX 07/24/22 [History Last Taken 07/23/22] guaifenesin 1,200 mg tablet, extended release 12 hr (Mucus Relief ER) 1,200 mg PO BID PRN MUCUS RELIEF 07/24/22 [History Last Taken Unknown] lisinopril 10 mg tablet 10 mg PO DAILY BLOOD PRESSURE 07/24/22 [History Last Taken 07/24/22 08:00] loperamide 2 mg capsule 2 mg PO Q4H PRN STOOL 07/24/22 [History Last Taken 07/24/22 09:30] magnesium hydroxide 400 mg/5 mL oral suspension (Milk of Magnesia) 30 ml PO Q24H PRN Constipation 07/24/22 [History Last Taken Unknown] propranolol 80 mg capsule,24 hr,extended release 80 mg PO DAILY BLOOD PRESSURE 07/24/22 [History Last Taken 07/24/22 08:00] Allergy/AdvReac Type Severity Reaction Status Date / Time acetic acid Allergy PT UNABLE Verified 07/24/22 15:08 TO RESPOND-NEEDS F/U nut - unspecified [nuts] Allergy PT UNABLE Verified 07/24/22 15:08 TO RESPOND-NEEDS F/U Penicillins Allergy PT UNABLE Verified 07/24/22 15:08 TO RESPOND-NEEDS F/U risperidone Allergy PT UNABLE Verified 07/24/22 15:08 TO RESPOND-NEEDS F/U Social History housing: other details: Nursing facility with psychiatric focus. Smoking Status: Unknown if ever smoked alcohol intake: never substance use type: does not use ROS ROS ED Review of Systems ROS Unobtainable: due to mental condition and due to mental status EXAM Physical Exam Const Vital Signs: 07/24/22 15:08 07/24/22 15:16 07/24/22 15:32 Temperature 96.6 F L 96.7 F L Temperature Source Temporal Temporal Pulse Rate 56 L 58 L Respiratory Rate 14 14 Respiratory Effort Normal Non-Labored Respiratory Depth Normal Respiratory Pattern Normal Blood Pressure 75/46 L 66/46 L Blood Pressure Mean 55 53 Pulse Ox 98 100 Oxygen Delivery Method Nasal Cannula Nasal Cannula Nasal Cannula Oxygen Flow Rate (L/min) 4 4 4 07/24/22 16:15 07/24/22 17:00 07/24/22 17:15 Temperature 97.0 F L Temperature Source Temporal Pulse Rate 61 57 L 58 L Respiratory Rate 14 13 16 Respiratory Effort Respiratory Depth Respiratory Pattern Blood Pressure 103/74 83/55 L 83/59 L Blood Pressure Mean 85 64 68 Pulse Ox 97 100 100 Oxygen Delivery Method Nasal Cannula Oxygen Flow Rate (L/min) 4 07/24/22 17:30 07/24/22 17:31 Temperature Temperature Source Pulse Rate 54 L 57 L Respiratory Rate 15 14 Respiratory Effort Respiratory Depth Respiratory Pattern Blood Pressure 84/57 L Blood Pressure Mean 65 Pulse Ox 100 100 Oxygen Delivery Method Oxygen Flow Rate (L/min) Positive well developed and obese General Appearance ED: well developed Nutritional Appearance: obese HEENT Reports moist mucous membranes Neck supple and no JVD Resp normal respiratory effort Auscultation: diminished lung sounds diffuse Cardio regular rhythm Rate: bradycardia GI non-tender Palpation: soft Extremity normal to inspection General Extremety ED: Negative for edema or tenderness General Extremity: Negative for edema Neuro CN's II-XII intact bilaterally [place] Coma Scale: document GCS findings To Voice Localizes to Pain Confused 12 Sensorium / Orientation: lethargic Motor Exam: general weakness Skin skin turgor normal MDM MDM MDM Narrative Medical decision making narrative: Differential diagnosis includes adrenal insufficiency, pulmonary embolism, cardiac dysrhythmia, pneumonia, sepsis, urinary tract infection, cardiac ischemia, valproic acid toxicity, encephalopathy, stroke, COVID infection, influenza infection, and other viral infection. EKG will be obtained to assess for cardiac dysrhythmia. Chest x-ray will be obtained to assess for pneumonia, pneumothorax, congestive heart failure. CBC will be obtained to assess for leukocytosis and anemia. Comprehensive metabolic profile will be obtained to assess for electrolyte abnormality, hepatic function, and renal function. Lactate will be obtained to assess for sepsis. Troponin will be obtained to assess for cardiac ischemia. Valproic acid level will be obtained to assess for Depakote toxicity. Blood cultures will be obtained to assess for sepsis. Urinalysis will be obtained to assess for urinary tract infection and hematuria. Serum ammonia level will be obtained to assess for hepatic encephalopathy. CT scan of the brain will be obtained to assess for stroke.. Lab Data Attestation: I reviewed the patient's lab results. Lab results narrative: CBC was reviewed and showed a mild anemia with a hemoglobin of 11.2 hematocrit 33.5. PT was reviewed and was slightly elevated at 15.0. INR was 1.2. PTT was reviewed and was normal. Basic metabolic profile was reviewed and showed a hypokalemia of 2.5. BUN was elevated at 41 and creatinine was elevated at 4.08. These are increased from previous results. High-sensitivity troponin was reviewed and was normal at 9. Lactate was reviewed and was normal at 1.6. Ammonia level was reviewed and was normal at 26. Depakote level was reviewed and was normal at 90. Urinalysis was reviewed and does not show any evidence of urinary tract infection or hematuria. COVID-19 rapid antigen was reviewed and was negative. Influenza A and influenza B antigens were reviewed and were negative. Labs: Laboratory Results - last 24 hr 07/24/22 07/24/22 07/24/22 15:50 15:50 15:50 WBC 9.0 RBC 3.54 L Hgb 11.2 L Hct 33.5 L MCV 94.6 H MCH 31.6 MCHC 33.4 RDW Std Deviation 47.5 H RDW Coeff of Eleanor 13.7 Plt Count 190 MPV 9.7 Immature Gran % (Auto) 0.600 Neut % (Auto) 72.5 H Lymph % (Auto) 8.2 L [place] % (Auto) 16.0 H Eos % (Auto) 1.8 Baso % (Auto) 0.9 Absolute Neuts (auto) 6.6 Absolute Lymphs (auto) 0.74 L Nucleated RBC % 0 PT 15.0 H INR 1.2 APTT 35.3 Sodium 137 Potassium 2.5 L* Chloride 90 L Carbon Dioxide 38.0 H Anion Gap 9 BUN 41 H Creatinine 4.08 H Estim Creat Clear Calc 20.49 Est GFR (MDRD) Af Amer 20 L Est GFR (MDRD) Non-Af 16 L BUN/Creatinine Ratio 10.0 Glucose 149 H Lactic Acid Calcium 8.5 Phosphorus Magnesium Ammonia Troponin I High Sens 9 Urine Color Urine Clarity Urine pH Ur Specific [place] Urine Protein Urine Glucose (UA) Urine Ketones Urine Occult Blood Urine Nitrite Urine Bilirubin Urine Urobilinogen Ur Leukocyte Esterase Urine RBC Urine WBC Ur Squamous Epith Cells Urine Bacteria Urine Mucus Valproic Acid 07/24/22 07/24/22 07/24/22 15:50 16:25 16:25 WBC RBC Hgb Hct MCV MCH MCHC RDW Std Deviation RDW Coeff of [place] Plt Count MPV Immature Gran % (Auto) Neut % (Auto) Lymph % (Auto) [place] % (Auto) Eos % (Auto) Baso % (Auto) Absolute Neuts (auto) Absolute Lymphs (auto) Nucleated RBC % PT INR APTT Sodium Potassium Chloride Carbon Dioxide Anion Gap BUN Creatinine Estim Creat Clear Calc Est GFR (MDRD) Af Amer Est GFR (MDRD) Non-Af BUN/Creatinine Ratio Glucose Lactic Acid 1.6 Calcium Phosphorus 4.4 Magnesium 2.4 Ammonia Troponin I High Sens Urine Color Urine Clarity Urine pH Ur Specific [place] Urine Protein Urine Glucose (UA) Urine Ketones Urine Occult Blood Urine Nitrite Urine Bilirubin Urine Urobilinogen Ur Leukocyte Esterase Urine RBC Urine WBC Ur Squamous Epith Cells Urine Bacteria Urine Mucus Valproic Acid 90 07/24/22 07/24/22 16:25 16:25 WBC RBC Hgb Hct MCV MCH MCHC RDW Std Deviation RDW Coeff of [place] Plt Count MPV Immature Gran % (Auto) Neut % (Auto) Lymph % (Auto) [place] % (Auto) Eos % (Auto) Baso % (Auto) Absolute Neuts (auto) Absolute Lymphs (auto) Nucleated RBC % PT INR APTT Sodium Potassium Chloride Carbon Dioxide Anion Gap BUN Creatinine Estim Creat Clear Calc Est GFR (MDRD) Af Amer Est GFR (MDRD) Non-Af BUN/Creatinine Ratio Glucose Lactic Acid Calcium Phosphorus Magnesium Ammonia 26.0 Troponin I High Sens Urine Color Yellow Urine Clarity Clear Urine pH 5.0 Ur Specific [place] 1.015 Urine Protein 30 H Urine Glucose (UA) 250 H Urine Ketones 5 H Urine Occult Blood 25 H Urine Nitrite Negative Urine Bilirubin Negative Urine Urobilinogen Normal Ur Leukocyte Esterase 25 H Urine RBC 0-5 SEEN Urine WBC 0-5 SEEN Ur Squamous Epith Cells 0-5 SEEN Urine Bacteria 0 SEEN Urine Mucus 0 SEEN Valproic Acid Radiography Diagnostic Testing: Clinical Impression(s) from Imaging Studies Chest X-Ray 07/24/22 15:25 IMPRESSION: Patchy right middle lobe infiltrate with increased markings in the posterior medial segment of the left lower lobe. Radiographic follow-up recommended. Electronically Signed: Severiano Friedman MD at 15:37 EST , Brain CT 07/24/22 15:31 IMPRESSION: No acute intracranial pathology of the brain. Electronically Signed: Jonas Meade DO at 16:58 EST , Portable chest x-ray was obtained. There is 1 view. On my independent interpretation there is a right middle lobe infiltrate. There is no cardiomegaly. Bony thorax is normal. Radiologist also interpreted the x-ray and noted some increased markings in the posterior medial segment of the left lower lobe as well as the right middle lobe infiltrate. CT scan of the brain was obtained. There is no acute intracranial abnormality. This was interpreted by the radiologist and was also independently reviewed by myself. EKG Initial EKG: Attestation: I personally reviewed and interpreted this EKG as follows: Interpretation: Sinus Bradycardia (56) and Non-Specific ST Changes Comments: EKG was obtained. On my interpretation, it showed a sinus bradycardia with a rate of 56. MO interval, QRS interval, and QTc intervals were all normal. [place] was normal. There are nonspecific ST-T wave changes. Prior EKG tracings: available for review Prior: Unchanged (06/04/2022) Treatment and Re-Evaluation Narrative: Patient was given potassium for his hypokalemia. Patient was given a dose of Solu-Cortef initially with his history of adrenal insufficiency. Patient was started on Levaquin to cover the pneumonia. Patient was given IV fluids. Patient's blood pressure improved initially but then started to go back down again. Patient was given a repeat bolus of normal saline. Case was discussed with the hospitalist. She will admit the patient to her service to PCU. She recommended obtaining arterial blood gas prior to going to the floor. This was obtained. Critical Care Time Critical Care Time: Yes Critical care time (excluding procedures): 30-74 minutes (35), Including time s pent:, Discussing w/Patient &/or Family/Night Shift Manager, Discussing w/Consultants, Arranging Admission or Transfer and Performing Direct Patient Care at Bedside Discharge Plan Dx/Rx/DC Orders Clinical Impression: Acute kidney injury, Pneumonia, Hypotension Disposition Disposition: Acute Care Hospital [facility] Discharge Date/Time: 07/24/22 20:48
--- NOTE | 2022-07-24 15:25 | RAD_ITS ---
STUDY: X-RAY CHEST REASON FOR EXAM: Male, 52 years old. Dyspnea TECHNIQUE: Single AP portable view of the chest. COMPARISON: Comparison is made with prior study dated 06/16/2022. FINDINGS: EKG electrodes are seen. Patchy right middle lobe infiltrate. Mild increased markings in the posterior medial aspect of the left lower lobe. Follow-up is recommended. There is no demonstrated pleural abnormality. Normal size heart. Normal mediastinum and joavny. Normal visualized pulmonary arteries. Normal visualized aortic arch and descending thoracic aorta. There are diffuse degenerative changes of the visualized thoracic spine. Normal visualized ribs, clavicles, and shoulders. There is no demonstrated abnormality of the visualized soft tissue structures of the upper abdomen. RAD/Chest 1 View (Portable) IMPRESSION: Patchy right middle lobe infiltrate with increased markings in the posterior medial segment of the left lower lobe. Radiographic follow-up recommended. Electronically Signed: Severiano Friedman MD at 15:37 EST ,
--- NOTE | 2022-07-24 15:31 | CT_ITS ---
STUDY: CT BRAIN WITHOUT CONTRAST REASON FOR EXAM: Male, 52 years old. Altered mental status RADIATION DOSAGE (If Supplied By Facility): CTDIvol = ( 44.99 ) mGy, DLP = ( 863.60 ) mGycm TECHNIQUE: Transaxial CT imaging of the brain was performed without administration of intravenous contrast material. Individualized dose optimization techniques were used for this CT. COMPARISON: No relevant priors. FINDINGS: Normal soft tissue structures. Normal calvarium. Normal size ventricles and extra-axial spaces for the patient''s age. Normal white matter tracts of the cerebral hemispheres. Normal basal ganglia and thalami. Normal brainstem. Normal cerebellum. There is no intracranial hemorrhage. There are no findings of an acute ischemic infarction. Normal visualized paranasal sinuses. Deformed left ocular globe. CT/Brain/Head without Contrast IMPRESSION: No acute intracranial pathology of the brain. Electronically Signed: Jonas Meade DO at 16:58 EST ,
[2022-07-24] MEDS: Hydrocortisone Sod Succinate 100 MG/2 ML Vial IV ×2 (15:41→21:30)
[2022-07-24] MEDS: 0.9% Normal Saline 1,000 ML 1000 ML IV ×2 (15:41→18:07)
[2022-07-24 16:17] LABS: Absolute Lymphocyte Count 0.74 X10^3/uL (0.83-4.51); Absolute Neutrophil Count 6.6 X10^3/uL (2.0-7.7); Basophil# 0.08 X10^3/uL; Basophil% 0.9 % (0-1); Eosinophil# 0.16 X10^3/uL; Eosinophils% 1.8 % (0-5); Hematocrit 33.5 % (40-54); Hemoglobin 11.2 g/dL (13.0-16.5); Lymphocyte # 0.74 X10^3/ul (0.83-4.51); Lymphocyte % 8.2 % (19-41); Mean Corp Hgb Conc 33.4 g/dL (32-36); Mean Corpuscular Hgb 31.6 pg (27.0-32.0); Mean Corpuscular Volume 94.6 fL (80-94); Mean Platelet Vol. 9.7 fl (6.2-12.0); Monocyte# 1.44 X10^3/uL; NRBC Flagged by Analyzer 0 % (0-5); Neutrophil # 6.55 X10^3/uL (2.7-7.7); Neutrophil % 72.5 % (47-70); Platelet Count 190 K/mm3 (150-450); RBC Distribution Width CV 13.7 % (11.6-14.6); RBC Distribution Width SD 47.5 fl (35.1-43.9); Red Blood Count 3.54 M/mm3 (4.6-6.2)
[2022-07-24 16:21] LABS: International Normalized Ratio 1.2
[2022-07-24 16:22] LABS: Partial Thromboplast Time 35.3 Seconds (24.1-36.2)
[2022-07-24 16:31] LABS: Bacteria 0 SEEN /hpf (None Seen)
[2022-07-24 16:39] LABS: Anion Gap 9 (5-15); BUN 41 mg/dL (7-18); Calcium,Total 8.5 mg/dL (8.5-10.1); Chloride 90 mmol/L (98-107); Creatinine, Serum 4.08 mg/dL (0.70-1.30); EST Glomerular Filtration Rate 16 mL/min (>60); Est Glom Filt Rate - Afr Amer 20 mL/min (>60); Estimated Creatinine Clearance 20.49 ml/min; Glucose 149 mg/dL (74-106); Potassium 2.5 mmol/L (3.5-5.1); Sodium Level 137 mmol/L (136-145); Troponin-I HS 9 pg/mL (3.0-78.0)
[2022-07-24 16:41] LABS: Glucose, Dipstick 250 mg/dl (Normal); Ketone-Dipstick 5 mg/dl (Negative); Leukocyte Esterase-Dipstick 25 /ul (Negative); Nitrite-Dipstick Negative (Negative); Occult Blood-Urine 25 /ul (Negative); Protein-Dipstick 30 mg/dl (Negative); Specific Gravity, Urine 1.015 (1.002-1.030); Urine Bilirubin Dipstick Negative (Negative); Urine Urobilinogen Normal (Normal)
[2022-07-24 16:54] LABS: Color, Urine Yellow (Yellow); Urine Clarity Clear (Clear)
[2022-07-24 16:55] LABS: Red Blood Cells-Urine 0-5 SEEN /hpf (0-5); Squamous Epithelial Cells - UA 0-5 SEEN /hpf (0-5); White Blood Cells 0-5 SEEN /hpf (0-5)
[2022-07-24 16:56] LABS: Mucous, Urine 0 SEEN /hpf (<or=2+)
[2022-07-24 17:14] LABS: Lactic Acid 1.6 mmol/L (0.4-1.9)
[2022-07-24] MEDS: Potassium Chloride 10mEq/100mL 10 MEQ/100 ML IV.SOLN. 100 MEQ IV BOLUS ×2 (17:14→18:07)
[2022-07-24 17:15] LABS: Valproic Acid (Depakene) Level 90 ug/mL (50-100)
[2022-07-24 18:01] LABS: Magnesium 2.4 mg/dL (1.6-2.6); Phosphorus 4.4 mg/dL (2.5-4.9)
[2022-07-24] MEDS: levoFLOXacin IV 750 MG/150 ML BAG 100 MG IV (18:07)
--- NOTE | 2022-07-24 19:46 | PCM.HP.STD ---
HPI - General General Date of Admission: 07/24/22 Date of Service: 07/24/22 Chief Complaint: AMS HPI Narrative TEGAN FUENTES, is a 52 M who presents with the above. Patient is a poor historian. He is lethargic and not able to answer my questions. I called his [facility] and I was told that he has chronic psych history, he is usually alert and oriented x3, able to carry a conversation. He has had some diarrhea ongoing for couple of days. Today his nurse noted that his blood pressure was low, he was also very weak and not easily arousable. Review of chart shows that patient has history of bipolar disorder, schizoaffective disorder adrenal insufficiency, on fludrocortisone. Vitals in ED showed blood pressure 75/46, heart rate 56, respiratory 14, temperature 96.6 F, oxygen sat 98% on 4 L. WBC 9.0, hemoglobin 11.2, platelet count 190. INR 1.2. Sodium 137, potassium 2.5, chloride 90, bicarbonate 38, BUN 41, creatinine 4.08, previous creatinine 0.67. Lactic acid 1.6. Magnesium 2.4, phosphorus 4.4. Troponin 9. Ammonia 26. UA is unremarkable. Valproic acid is 90. Admitting chest x-ray showed patchy right middle lobe infiltrate with increased markings in the posterior medial segment of the left lower lobe. Brain CT showed no acute intracranial pathology. In the emergency room, patient's blood pressure was relatively low, improved with IV fluid boluses [facility] Medical History Adrenocortical insufficiency Anemia Anxiety Asthma Bradycardia Cellulitis Chronic anal fissure COPD (chronic obstructive pulmonary disease) Cyclical vomiting Gastroparesis Hypertension Hypocalcemia Intermittent explosive disorder Legally blind Schizo affective schizophrenia Thrombocythemia Home Medications albuterol sulfate 0.63 mg/3 mL solution for nebulization 0.63 mg inhalation Q4H PRN Shortness Of Breath 06/04/22 [History Last Taken Unknown] amlodipine 10 mg tablet (Norvasc) 10 mg PO DAILY BLOOD PRESSURE 06/04/22 [History Last Taken 07/24/22 08:00] benztropine 1 mg tablet 1 mg PO BID 06/04/22 [History Last Taken 07/23/22] cyanocobalamin (vitamin B-12) 1,000 mcg tablet 1,000 mcg PO WE SUPPLEMENT 06/04/22 [History Last Taken 07/24/22 08:00] divalproex 500 mg tablet,extended release 24 hr (Depakote ER) 500 mg PO BID MENTAL HEALTH 06/04/22 [History Last Taken 07/24/22 08:00] escitalopram oxalate 10 mg tablet (Lexapro) 10 mg PO BID MENTAL HEALTH 06/04/22 [History Last Taken 07/24/22 08:00] famotidine 20 mg tablet (Pepcid) 20 mg PO DAILY ACID REFLUX 06/04/22 [History Last Taken 07/23/22] ferrous sulfate 325 mg (65 mg iron) tablet (FeroSul) 325 mg PO BID SUPPLEMENT 06/04/22 [History Last Taken 07/24/22 08:00] fludrocortisone 0.1 mg tablet 0.1 mg PO DAILY 06/04/22 [History Last Taken 07/24/22 08:00] fluticasone propionate 50 mcg/actuation nasal spray,suspension (Flonase Allergy Relief) 1 spray intranasal DAILY ALLERGIES 06/04/22 [History Last Taken 07/24/22 08:00] hydrochlorothiazide 25 mg tablet 25 mg PO DAILY BLOOD PRESSURE 06/04/22 [History Last Taken 07/24/22 08:00] iloperidone 12 mg tablet (Fanapt) 12 mg PO DAILY MENTAL HEALTH 06/04/22 [History Last Taken 07/23/22] iloperidone 6 mg tablet (Fanapt) 6 mg PO DAILY MENTAL HEALTH 06/04/22 [History Last Taken 07/24/22 08:00] lorazepam 2 mg tablet 2 mg PO TID AGITATION 06/04/22 [History Last Taken 07/24/22 14:00] lorazepam 2 mg tablet (Ativan) 2 mg PO Q6H PRN Agitation 06/04/22 [History Last Taken Unknown] lorazepam 2 mg/mL injection solution (Ativan) 2 mg IV Q6H PRN AGITSTION 06/04/22 [History Last Taken Unknown] psyllium husk 3.4 gram/5.4 gram oral powder (Metamucil) 1 tbsp PO DAILY 06/04/22 [History Last Taken 07/24/22 08:00] quetiapine 300 mg tablet,extended release 24 hr (Seroquel XR) 600 mg PO QHS MENTAL HEALTH 06/04/22 [History Last Taken 07/23/22] trazodone 100 mg tablet 100 mg PO DAILY MENTAL HEALTH 06/04/22 [History Last Taken 07/23/22] aluminum-mag hydroxide-simethicone 200 mg-200 mg-20 mg/5 mL oral susp 30 ml PO Q4H PRN Heartburn 07/24/22 [History Last Taken Unknown] aspirin 81 mg tablet,delayed release 81 mg PO DAILY HEART HEALTH 07/24/22 [History Last Taken 07/24/22 08:00] bisacodyl 10 mg rectal suppository (Dulcolax (bisacodyl)) 10 mg [place] DAILY PRN Constipation 07/24/22 [History Last Taken Unknown] calcium carbonate 500 mg calcium (1,250 mg) tablet 500 mg PO BID SUPPLEMENT 07/24/22 [History Last Taken 07/24/22 08:00] cholecalciferol (vitamin D3) 50 mcg (2,000 unit) tablet (Vitamin D3) 50 mcg PO DAILY SUPPLEMENT 07/24/22 [History Last Taken 07/24/22 08:00] famotidine 20 mg tablet (Pepcid) 20 mg PO DAILY ACID REFLUX 07/24/22 [History Last Taken 07/23/22] guaifenesin 1,200 mg tablet, extended release 12 hr (Mucus Relief ER) 1,200 mg PO BID PRN MUCUS RELIEF 07/24/22 [History Last Taken Unknown] lisinopril 10 mg tablet 10 mg PO DAILY BLOOD PRESSURE 07/24/22 [History Last Taken 07/24/22 08:00] loperamide 2 mg capsule 2 mg PO Q4H PRN STOOL 07/24/22 [History Last Taken 07/24/22 09:30] magnesium hydroxide 400 mg/5 mL oral suspension (Milk of Magnesia) 30 ml PO Q24H PRN Constipation 07/24/22 [History Last Taken Unknown] propranolol 80 mg capsule,24 hr,extended release 80 mg PO DAILY BLOOD PRESSURE 07/24/22 [History Last Taken 07/24/22 08:00] Allergy/AdvReac Type Severity Reaction Status Date / Time acetic acid Allergy PT UNABLE Verified 07/24/22 15:08 TO RESPOND-NEEDS F/U nut - unspecified [nuts] Allergy PT UNABLE Verified 07/24/22 15:08 TO RESPOND-NEEDS F/U Penicillins Allergy PT UNABLE Verified 07/24/22 15:08 TO RESPOND-NEEDS F/U risperidone Allergy PT UNABLE Verified 07/24/22 15:08 TO RESPOND-NEEDS F/U Family History unable to obtain unable to obtain Surgical History unable to obtain unable to obtain Social History housing: other details: Nursing facility with psychiatric focus. Smoking Status: Unknown if ever smoked alcohol intake: never substance use type: does not use ROS Review of Systems ROS Unobtainable: due to encephalopathy Vital Signs Vital Signs Vital Signs: 07/24/22 15:08 07/24/22 15:16 07/24/22 15:32 Temperature 96.6 F L 96.7 F L Temperature Source Temporal Temporal Pulse Rate 56 L 58 L Respiratory Rate 14 14 Respiratory Effort Normal Non-Labored Respiratory Depth Normal Respiratory Pattern Normal Blood Pressure 75/46 L 66/46 L Blood Pressure Mean 55 53 Pulse Ox 98 100 Oxygen Delivery Method Nasal Cannula Nasal Cannula Nasal Cannula Oxygen Flow Rate (L/min) 4 4 4 07/24/22 16:15 07/24/22 17:00 07/24/22 17:15 Temperature 97.0 F L Temperature Source Temporal Pulse Rate 61 57 L 58 L Respiratory Rate 14 13 16 Respiratory Effort Respiratory Depth Respiratory Pattern Blood Pressure 103/74 83/55 L 83/59 L Blood Pressure Mean 85 64 68 Pulse Ox 97 100 100 Oxygen Delivery Method Nasal Cannula Oxygen Flow Rate (L/min) 4 07/24/22 17:30 07/24/22 17:31 07/24/22 17:40 Temperature Temperature Source Pulse Rate 54 L 57 L 56 L Respiratory Rate 15 14 13 Respiratory Effort Respiratory Depth Respiratory Pattern Blood Pressure 84/57 L Blood Pressure Mean 65 Pulse Ox 100 100 100 Oxygen Delivery Method Oxygen Flow Rate (L/min) 07/24/22 17:45 07/24/22 17:50 07/24/22 18:01 Temperature 97.5 F L Temperature Source Temporal Pulse Rate 53 L 54 L 54 L Respiratory Rate 15 16 17 Respiratory Effort Respiratory Depth Respiratory Pattern Blood Pressure 85/53 L 85/53 L 93/57 L Blood Pressure Mean 65 63 66 Pulse Ox 100 100 99 Oxygen Delivery Method Oxygen Flow Rate (L/min) 07/24/22 18:36 07/24/22 18:47 07/24/22 19:28 Temperature 97.8 F Temperature Source Temporal Pulse Rate 62 60 65 Respiratory Rate 14 13 17 Respiratory Effort Respiratory Depth Respiratory Pattern Blood Pressure 95/62 102/64 102/64 Blood Pressure Mean 73 75 76 Pulse Ox 99 97 99 Oxygen Delivery Method Nasal Cannula Oxygen Flow Rate (L/min) 4 Weight Weight: 90.3 kg Body Mass Index (BMI) 30.2 Physical Exam Narrative Physical exam: General: Lethargic, not responsive to commands, on 4 L of oxygen HEENT: Atraumatic Oral: Moist Mucosa Neck: Supple Lungs: Diminished to auscultation Cardiovascular: HS I+II, regular, no murmurs Abdomen: Bowel Sounds Present, Soft, Non Tender Extremities: No edema Skin: No rashes, No breakdown Neurological: Grossly intact Psych/Mental Status: Appropriate Results Lab / Micro Data Result Diagrams: 07/24/22 15:50 07/24/22 15:50 Labs: Laboratory Results - last 24 hr 07/24/22 15:50: WBC 9.0, RBC 3.54 L, Hgb 11.2 L, Hct 33.5 L, MCV 94.6 H, MCH 31.6, MCHC 33.4, RDW Std Deviation 47.5 H, RDW Coeff of [place] 13.7, Plt Count 190, MPV 9.7, Immature Gran % (Auto) 0.600, Neut % (Auto) 72.5 H, Lymph % (Auto) 8.2 L, [place] % (Auto) 16.0 H, Eos % (Auto) 1.8, Baso % (Auto) 0.9, Absolute Neuts (auto) 6.6, Absolute Lymphs (auto) 0.74 L, Nucleated RBC % 0 07/24/22 15:50: PT 15.0 H, INR 1.2, APTT 35.3 07/24/22 15:50: Sodium 137, Potassium 2.5 L*, Chloride 90 L, Carbon Dioxide 38.0 H, Anion Gap 9, BUN 41 H, Creatinine 4.08 H, Estim Creat Clear Calc 20.49, Est GFR (MDRD) Af Amer 20 L, Est GFR (MDRD) Non-Af 16 L, BUN/Creatinine Ratio 10.0, Glucose 149 H, Calcium 8.5, Troponin I High Sens 9 07/24/22 15:50: Phosphorus 4.4, Magnesium 2.4 07/24/22 16:25: Valproic Acid 90 07/24/22 16:25: Lactic Acid 1.6 07/24/22 16:25: Ammonia 26.0 07/24/22 16:25: Urine Color Yellow, Urine Clarity Clear, Urine pH 5.0, Ur Specific [place] 1.015, Urine Protein 30 H, Urine Glucose (UA) 250 H, Urine Ketones 5 H, Urine Occult Blood 25 H, Urine Nitrite Negative, Urine Bilirubin Negative, Urine Urobilinogen Normal, Ur Leukocyte Esterase 25 H, Urine RBC 0-5 SEEN, Urine WBC 0-5 SEEN, Ur Squamous Epith Cells 0-5 SEEN, Urine Bacteria 0 SEEN, Urine Mucus 0 SEEN Micro: Microbiology 07/24/22 15:50 Nasal Secretion SARS-CoV-2 & FLU Antigen (Rapid) - Final Radiology Impression Chest X-Ray 07/24/22 15:25 IMPRESSION: Patchy right middle lobe infiltrate with increased markings in the posterior medial segment of the left lower lobe. Radiographic follow-up recommended. Electronically Signed: Severiano Friedman MD at 15:37 EST , Brain CT 07/24/22 15:31 IMPRESSION: No acute intracranial pathology of the brain. Electronically Signed: Jonas Meade DO at 16:58 EST , Assessment & Plan Assessment/Plan (1) Acute kidney injury: (2) Acute metabolic encephalopathy: PLAN: Plan 1. Acute metabolic encephalopathy, unclear etiology for now Patient remains lethargic History obtained from patient's fci is a patient usually alert oriented x3 Ammonia is 26, CT of the brain shows no acute intracranial pathology, UA is unremarkable We will get ABG, EEG stat 2. Severe hypokalemia secondary to reported acute diarrhea Admitting potassium of 2.5, magnesium is 2.4 Potassium has been replaced, repeat CMP 3. Acute kidney injury likely prerenal secondary to dehydration from acute diarrhea/relative hypotension/medication side effect?lisinopril and hydrochlorothiazide. Admitting creatinine is 4.08, previous creatinine 0.67 Continue IV fluids, trend lab 4. Acute hypoxia secondary to pneumonia, seen on chest x-ray Patient is currently on 4 L of oxygen, wean off for SPO2 more than 94 5. Acute pneumonia?right middle lobe infiltrate with left lower lobe, suspected aspiration pneumonia Started on IV Levaquin, will switch to IV Zosyn 6. Acute nongap metabolic alkalosis likely from diarrhea We will get ABG, continue on IV fluids 7. Hypotension, responsive to fluid, history of adrenal insufficiency, on fludrocortisone Will switch to IV hydrocortisone, continue IV fluids 8. History of schizoaffective disorder, hold Seroquel, Lexapro, trazodone 9. Hypertension, now relatively hypotensive, hold amlodipine, lisinopril, propranolol, 10. DVT PPx - Heparin SC CODE STATUS?full code, confirmed with [facility] Charges/Coding Addendum Addendum: Total time spent: 80 minutes of which more > 50% was spent in reviewing patient's chart, laboratory investigations, imaging, discussing with emergency physician, history taking from fci staff Visit Charges Inpatient E&M: 12009 Init Hosp L3
[2022-07-24 21:01] LABS: Base Excess 9 mmol/L (-2 to +2); Bicarbonate 33.8 mmol/L (22-26); Blood Gas Specimen Type ART; O2 Delivery Device Cannula; PO2 89 mmHG (75-100); SITE R Brach; SO2 97 % (95-99); Total Carbon Dioxide 36 mmol/L; pCO2 56.2 mmHg (35-45); pH 7.39 (7.35-7.45)
[2022-07-24] MEDS: 0.9% Normal Saline 1,000 ML 150 ML IV (21:25)
[2022-07-24] MEDS: Heparin Injection (Vial) 5,000 UNIT/ML VIAL 5000 UNIT SC (21:30)
[2022-07-24 23:39] LABS: ALB/GLOB Ratio 0.6 RATIO (0.9-2.4); AST(SGOT) 5 U/L (15-37); Alanine Aminotransfer ALT/SGPT 9 U/L (16-61); Albumin, Serum 2.1 g/dL (3.2-5.0); Alkaline Phosphatase 53 U/L (45-117); Anion Gap 8 (5-15); BUN 36 mg/dL (7-18); BUN/Creat Ratio 12.5 RATIO (10-20); Bilirubin, Direct 0.11 mg/dL (0.00-0.30); Chloride 97 mmol/L (98-107); Creatinine, Serum 2.88 mg/dL (0.70-1.30); EST Glomerular Filtration Rate 25 mL/min (>60); Est Glom Filt Rate - Afr Amer 30 mL/min (>60); Estimated Creatinine Clearance 29.03 ml/min; Globulin 3.7 g/dL (2.2-4.2); Glucose 149 mg/dL (74-106); Potassium 2.6 mmol/L (3.5-5.1); Protein, Total 5.8 g/dL (6.4-8.2); Sodium Level 140 mmol/L (136-145)
[2022-07-25] VITALS (7 sets, daily range): BP systolic 110–144; BP diastolic 57–74; PULSE 77–94; RESP 16–20; TEMP 36.4–37.3; O2SAT 92–97
[2022-07-25] MEDS: Potassium Chloride 10mEq/100mL 10 MEQ/100 ML IV.SOLN. 100 MEQ IV BOLUS ×4 (00:58→04:37)
[2022-07-25] MEDS: Heparin Injection (Vial) 5,000 UNIT/ML VIAL 5000 UNIT SC ×2 (05:00→13:01)
[2022-07-25] MEDS: Hydrocortisone Sod Succinate 100 MG/2 ML Vial IV ×2 (05:00→15:44)
[2022-07-25 06:29] LABS: Absolute Lymphocyte Count 0.34 X10^3/uL (0.83-4.51); Absolute Neutrophil Count 8.2 X10^3/uL (2.0-7.7); Basophil# 0.02 X10^3/uL; Basophil% 0.2 % (0-1); Hematocrit 39.2 % (40-54); Hemoglobin 12.8 g/dL (13.0-16.5); Lymphocyte # 0.34 X10^3/ul (0.83-4.51); Lymphocyte % 3.5 % (19-41); Mean Corp Hgb Conc 32.7 g/dL (32-36); Mean Corpuscular Hgb 30.9 pg (27.0-32.0); Mean Corpuscular Volume 94.7 fL (80-94); Mean Platelet Vol. 9.3 fl (6.2-12.0); Monocyte% 9.4 % (0-10); NRBC Flagged by Analyzer 0 % (0-5); Neutrophil # 8.24 X10^3/uL (2.7-7.7); POSITIVE DIFFERENTIAL YES; POSITIVE MORPHOLOGY YES; Platelet Count 209 K/mm3 (150-450); RBC Distribution Width CV 13.5 % (11.6-14.6); Red Blood Count 4.14 M/mm3 (4.6-6.2); White Blood Count 9.6 K/mm3 (4.4-11.0)
[2022-07-25 06:42] LABS: Differential Indicated SCAN CRITERIA MET
[2022-07-25 06:56] LABS: Differential Comment SCANNED; Toxic Granulation 1+
[2022-07-25 06:57] LABS: ALB/GLOB Ratio 0.6 RATIO (0.9-2.4); AST(SGOT) 9 U/L (15-37); Alanine Aminotransfer ALT/SGPT 12 U/L (16-61); Albumin, Serum 2.2 g/dL (3.2-5.0); Alkaline Phosphatase 80 U/L (45-117); Anion Gap 6 (5-15); BUN 34 mg/dL (7-18); Calcium,Total 8.3 mg/dL (8.5-10.1); Chloride 99 mmol/L (98-107); Creatinine, Serum 2.43 mg/dL (0.70-1.30); EST Glomerular Filtration Rate 30 mL/min (>60); Est Glom Filt Rate - Afr Amer 36 mL/min (>60); Globulin 3.9 g/dL (2.2-4.2); Glucose 117 mg/dL (74-106); Protein, Total 6.1 g/dL (6.4-8.2); Sodium Level 142 mmol/L (136-145)
--- NOTE | 2022-07-25 07:20 | TELEMED_ITS ---
[facility] Tele[facility] has confirmed receipt of a request for visit. This document confirms receipt of the order initiating the consult. To find the results of the consultation, please view the patient's reports for the scanned Telemed Consult.
[2022-07-25] MEDS: Divalproex (ER) 500 MG Tablet PO (08:00)
[2022-07-25] MEDS: Calcium (Elemental) 500 MG Tablet PO (08:00)
[2022-07-25] MEDS: Ferrous Sulfate 325 MG Tablet PO (08:00)
[2022-07-25] MEDS: Aspirin E.C. 81 MG Tablet PO (08:01)
[2022-07-25] MEDS: Menthol/Lanolin/Calamine/Znox 113 GM Tube 1 APPLIC TOPICAL (08:01)
[2022-07-25] MEDS: Potassium Chloride Oral Tablet 20 MEQ 60 MEQ PO (08:01)
[2022-07-25] MEDS: Cholecalciferol (VIT D3) 25 MCG TABLET (1,000 UNITS) 50 MCG PO (08:08)
--- NOTE | 2022-07-25 09:12 | PN.HOSP_ITS ---
Reason for Visit Reason for Visit: Diagnoses Hyperkalemia (07/24/22) Metabolic encephalopathy (07/24/22) Acute kidney failure, unspecified (07/24/22) Subjective Subjective More alert this morning but still confused unsure as to what his baseline is Objective Data Objective Data Vital Signs: Vital Signs Temp Pulse Resp BP Pulse Ox O2 Del Method O2 Flow Rate 98.3 F 82 16 117/74 97 Nasal Cannula 2 07/25/22 07:55 07/25/22 07:55 07/25/22 07:55 07/25/22 07:55 07/25/22 08:00 07/25/22 08:00 07/25/22 08:00 Oxygen Flow Rate (L/min) 2 Oxygen Delivery Method Nasal Cannula Weight: 187 lb 13.341 oz Body Mass Index (BMI) 30.2 Intake & Output: Intake and Output for Last 24 Hours 07/24/22 07/25/22 07/26/22 03:59 03:59 03:59 Intake Total 2669.99 / 2669.99 140 / 140 Output Total 600 / 600 500 / 500 Balance 2069.99 / 2069.99 -360 / -360 Lab / Micro Data Result Diagrams: 07/25/22 05:14 07/25/22 05:14 Labs: Laboratory Results - last 24 hr 07/24/22 15:50: WBC 9.0, RBC 3.54 L, Hgb 11.2 L, Hct 33.5 L, MCV 94.6 H, MCH 31.6, MCHC 33.4, RDW Std Deviation 47.5 H, RDW Coeff of [place] 13.7, Plt Count 190, MPV 9.7, Immature Gran % (Auto) 0.600, Neut % (Auto) 72.5 H, Lymph % (Auto) 8.2 L, [place] % (Auto) 16.0 H, Eos % (Auto) 1.8, Baso % (Auto) 0.9, Absolute Neuts (auto) 6.6, Absolute Lymphs (auto) 0.74 L, Nucleated RBC % 0 07/24/22 15:50: PT 15.0 H, INR 1.2, APTT 35.3 07/24/22 15:50: Sodium 137, Potassium 2.5 L*, Chloride 90 L, Carbon Dioxide 38.0 H, Anion Gap 9, BUN 41 H, Creatinine 4.08 H, Estim Creat Clear Calc 20.49, Est GFR (MDRD) Af Amer 20 L, Est GFR (MDRD) Non-Af 16 L, BUN/Creatinine Ratio 10.0, Glucose 149 H, Calcium 8.5, Troponin I High Sens 9 07/24/22 15:50: Phosphorus 4.4, Magnesium 2.4 07/24/22 16:25: Valproic Acid 90 07/24/22 16:25: Lactic Acid 1.6 07/24/22 16:25: Ammonia 26.0 07/24/22 16:25: Urine Color Yellow, Urine Clarity Clear, Urine pH 5.0, Ur Specific [place] 1.015, Urine Protein 30 H, Urine Glucose (UA) 250 H, Urine Ketones 5 H, Urine Occult Blood 25 H, Urine Nitrite Negative, Urine Bilirubin Negative, Urine Urobilinogen Normal, Ur Leukocyte Esterase 25 H, Urine RBC 0-5 SEEN, Urine WBC 0-5 SEEN, Ur Squamous Epith Cells 0-5 SEEN, Urine Bacteria 0 SEEN, Urine Mucus 0 SEEN 07/24/22 22:45: Sodium 140, Potassium 2.6 L*, Chloride 97 L, Carbon Dioxide 35.0 H, Anion Gap 8, BUN 36 H, Creatinine 2.88 H, Estim Creat Clear Calc 29.03, Est GFR (MDRD) Af Amer 30 L, Est GFR (MDRD) Non-Af 25 L, BUN/Creatinine Ratio 12.5, Glucose 149 H, Calcium 8.0 L, Total Bilirubin 0.40, Direct Bilirubin 0.11, AST 5 L, ALT 9 L, Alkaline Phosphatase 53, Total Protein 5.8 L, Albumin 2.1 L, Globulin 3.7, Albumin/Globulin Ratio 0.6 L 07/25/22 05:14: WBC 9.6, RBC 4.14 L, Hgb 12.8 L, Hct 39.2 L, MCV 94.7 H, MCH 30.9, MCHC 32.7, RDW Std Deviation 47.0 H, RDW Coeff of [place] 13.5, Plt Count 209, MPV 9.3, Immature Gran % (Auto) 0.900, Neut % (Auto) 86.0 H, Lymph % (Auto) 3.5 L, [place] % (Auto) 9.4, Eos % (Auto) 0.0, Baso % (Auto) 0.2, Absolute Neuts (auto) 8.2 H, Absolute Lymphs (auto) 0.34 L, Nucleated RBC % 0, Differential Comment SCANNED, Toxic Granulation 1+ 07/25/22 05:14: Sodium 142, Potassium 3.0 L, Chloride 99, Carbon Dioxide 37.0 H, Anion Gap 6, BUN 34 H, Creatinine 2.43 H, Estim Creat Clear Calc 34.40, Est GFR (MDRD) Af Amer 36 L, Est GFR (MDRD) Non-Af 30 L, BUN/Creatinine Ratio 14.0, Glucose 117 H, Calcium 8.3 L, Total Bilirubin 0.30, AST 9 L, ALT 12 L, Alkaline Phosphatase 80, Total Protein 6.1 L, Albumin 2.2 L, Globulin 3.9, Al bumin/Globulin Ratio 0.6 L Micro: Microbiology 07/24/22 15:50 Nasal Secretion SARS-CoV-2 & FLU Antigen (Rapid) - Final ABG Data ABG results: ABG 07/24/22 20:53 Specimen Type ART Sample Site R Brach pH 7.39 Bicarbonate Actual 33.8 H Total CO2 36 Base Excess 9 H O2 Saturation 97 ABG pCO2 56.2 H ABG pO2 89 Fei Test N/A O2 Delivery Device Cannula Liter Flow 4.0 Radiography Diagnostic Testing: Radiology Impression Chest X-Ray 07/24/22 15:25 IMPRESSION: Patchy right middle lobe infiltrate with increased markings in the posterior medial segment of the left lower lobe. Radiographic follow-up recommended. Electronically Signed: Severiano Friedman MD at 15:37 EST , Brain CT 07/24/22 15:31 IMPRESSION: No acute intracranial pathology of the brain. Electronically Signed: Jonas Meade DO at 16:58 EST , Physical Exam Narrative General: Alert, disoriented, Cooperative, No apparent distress HEENT: Atraumatic, PERRLA, EOMI, Normocephalic Oral: Dry mucosa Neck: Supple, No JVD Lungs: Diminished, Normal air movement, No rhonchi, No wheeze, No rales Cardiovascular: Regular rate, Regular Rhythm, Normal S1, Normal S2, No murmurs Abdomen: Soft, Non Tender, Non-Distended, No Hepato-splenomegaly Extremities: No edema, Capillary Refill Less than 3 Seconds Skin: No rashes, No breakdown Musculoskeletal: No Tenderness to Palpation of Joints or Extremities Neurological: Cranial nerves II-XII grossly intact, Motor Exam 5/5 strength throughout, Sensory exam intact to light touch and pain Psych/Mental Status: Flat affect Assessment & Plan Assessment/Plan (1) Acute kidney injury: (2) Acute metabolic encephalopathy: PLAN: Plan 1. Acute metabolic encephalopathy from acute renal failure and pneumonia with acute hypoxia/hypokalemia likely from diarrhea/unknown on anion gap metabolic alkalosis likely from diarrhea ? Continue with IV fluids ? We will obtain an EEG based on altered mental status ? Will continue on IV Zosyn for his pneumonia we will attempt a sputum culture if possible ? We will wean his oxygen as able ? He does have a right middle lobe infiltrate and a left lower lobe infiltrate could possibly due to aspiration unclear at the moment ?Potassium is improving we will replace, phosphorus and magnesium are normal 2. History of schizoaffective disorder ? Given his altered mental status we will hold his home Seroquel, Lexapro, trazodone 3. Hypertension ? He is little bit hypotensive here though improving with fluids ? We will hold Norvasc, propranolol, lisinopril and hydrochlorothiazide we will monitor for rebound tachycardia ? Continue with fludrocortisone 4. Iron deficiency anemia ? Continue with his iron replacement 5. GERD ? Stable ? Continue with Pepcid DVT: Heparin Charges/Coding Visit Charges Inpatient E&M: 12998 Subs Hosp L2
--- NOTE | 2022-07-25 09:27 | CASEMGMT ---
Patient is from [facility]. SW sent updates via fax and [employer]. SW also inquired if patient will need a pre-cert to return. SW will check in with patient's sister to make sure the plan is to [place] [facility] [place]. Mercedes Lubin [employer] BILLING [employer]
[2022-07-25] MEDS: 0.9% Normal Saline 1,000 ML 150 ML IV (10:58)
[2022-07-25] MEDS: Famotidine 20 MG Tablet PO (13:01)
--- NOTE | 2022-07-25 15:01 | NURSING ---
Called patients sister Courtney who is patients legal guardian. Gave her update on patient and notified her that patient has pulled out multiple IV's and removed his heart monitor and frequently pulls off his oxygen. Oxygen saturation is 86-87% on RA. Courtney gave permission via phone to restrain patient if necessary if all other options were exhausted. Appreciated update.
[2022-07-26] MEDS: Hydrocortisone Sod Succinate 100 MG/2 ML Vial IV ×4 (00:03→20:59)
[2022-07-26] MEDS: Menthol/Lanolin/Calamine/Znox 113 GM Tube 1 APPLIC TOPICAL ×3 (00:03→21:00)
[2022-07-26] MEDS: Heparin Injection (Vial) 5,000 UNIT/ML VIAL 5000 UNIT SC ×4 (00:03→20:59)
[2022-07-26] MEDS: Benztropine 2 MG Tablet 1 MG PO ×3 (00:04→20:58)
[2022-07-26] MEDS: Divalproex (ER) 500 MG Tablet PO ×3 (00:05→20:58)
[2022-07-26] MEDS: QUEtiapine 100 MG Tablet 300 MG PO ×3 (00:05→20:58)
[2022-07-26] MEDS: 0.9% Normal Saline 1,000 ML 150 ML IV ×2 (00:06→05:35)
[2022-07-26] MEDS: 0.9% Saline Lock 10 ML Syringe IV ×2 (05:16→14:54)
[2022-07-26 05:25] VITALS: BP 140/74; PULSE 95; RESP 20; TEMP 36.7; O2SAT 94
[2022-07-26 06:05] LABS: Absolute Lymphocyte Count 0.34 X10^3/uL (0.83-4.51); Basophil# 0.07 X10^3/uL; Basophil% 0.9 % (0-1); Hematocrit 37.5 % (40-54); Hemoglobin 12.3 g/dL (13.0-16.5); Lymphocyte # 0.34 X10^3/ul (0.83-4.51); Lymphocyte % 4.2 % (19-41); Mean Corp Hgb Conc 32.8 g/dL (32-36); Mean Corpuscular Hgb 31.4 pg (27.0-32.0); Mean Corpuscular Volume 95.7 fL (80-94); Mean Platelet Vol. 9.1 fl (6.2-12.0); Monocyte# 0.58 X10^3/uL; Monocyte% 7.1 % (0-10); NRBC Flagged by Analyzer 0 % (0-5); Neutrophil # 6.99 X10^3/uL (2.7-7.7); Neutrophil % 85.5 % (47-70); POSITIVE DIFFERENTIAL YES; POSITIVE MORPHOLOGY YES; Platelet Count 203 K/mm3 (150-450); RBC Distribution Width CV 13.8 % (11.6-14.6); RBC Distribution Width SD 48.8 fl (35.1-43.9); Red Blood Count 3.92 M/mm3 (4.6-6.2); White Blood Count 8.2 K/mm3 (4.4-11.0)
[2022-07-26 06:06] LABS: Differential Indicated SCAN CRITERIA MET
[2022-07-26 06:31] LABS: Differential Comment SCANNED
[2022-07-26 06:34] LABS: Anion Gap 6 (5-15); BUN 31 mg/dL (7-18); BUN/Creat Ratio 20.3 RATIO (10-20); Chloride 107 mmol/L (98-107); Creatinine, Serum 1.53 mg/dL (0.70-1.30); EST Glomerular Filtration Rate 51 mL/min (>60); Est Glom Filt Rate - Afr Amer 62 mL/min (>60); Estimated Creatinine Clearance 54.64 ml/min; Glucose 126 mg/dL (74-106); Potassium 2.9 mmol/L (3.5-5.1); Sodium Level 147 mmol/L (136-145)
--- NOTE | 2022-07-26 07:51 | NURSING ---
Pt noted per monitor with telemetry off. Upon rounding on pt in room, he is sleeping, respirations even and unlabored. Oxygen in place. Will reapply tele when awakened.
[2022-07-26 10:40] VITALS: O2SAT 87
[2022-07-26 10:41] VITALS: BP 124/87; PULSE 97; RESP 16; TEMP 37.3; O2SAT 94
[2022-07-26] MEDS: Acetaminophen 325 MG Tablet 650 MG PO (10:46)
[2022-07-26] MEDS: Aspirin E.C. 81 MG Tablet PO (10:48)
[2022-07-26] MEDS: Famotidine 20 MG Tablet PO (10:48)
[2022-07-26] MEDS: Cholecalciferol (VIT D3) 25 MCG TABLET (1,000 UNITS) 50 MCG PO (10:48)
[2022-07-26] MEDS: Calcium (Elemental) 500 MG Tablet PO ×2 (10:48→18:34)
[2022-07-26] MEDS: Ferrous Sulfate 325 MG Tablet PO ×2 (10:48→18:35)
[2022-07-26] MEDS: Potassium Chloride Oral Tablet 20 MEQ 60 MEQ PO (10:56)
[2022-07-26] MEDS: 0.9% Normal Saline 1,000 ML 75 ML IV (12:49)
--- NOTE | 2022-07-26 13:58 | CASEMGMT ---
SW did talk with patient's sister and confirmed [place] [facility] [place]. Mercedes BALLESTEROS
--- NOTE | 2022-07-26 14:40 | PN.HOSP_ITS ---
Subjective Subjective More alert today and interactive, communication is as more appropriate Objective Data Objective Data Vital Signs: Vital Signs Temp Pulse Resp BP Pulse Ox O2 Del Method O2 Flow Rate 99.2 F H 97 16 124/87 H 94 Nasal Cannula 2 07/26/22 10:41 07/26/22 10:41 07/26/22 10:41 07/26/22 10:41 07/26/22 10:41 07/26/22 14:34 07/26/22 14:34 Oxygen Flow Rate (L/min) 2 Oxygen Delivery Method Nasal Cannula Weight: 189 lb 6.033 oz Body Mass Index (BMI) 30.2 Intake & Output: Intake and Output for Last 24 Hours 07/25/22 07/26/22 07/27/22 03:59 03:59 03:59 Intake Total 2669.99 / 2669.99 2620.0 / 2620.0 2822.5 / 2822.5 Output Total 600 / 600 1500 / 1500 200 / 200 Balance 2069.99 / 2069.99 1120.0 / 1120.0 2622.5 / 2622.5 Lab / Micro Data Result Diagrams: 07/26/22 05:08 07/26/22 05:08 Labs: Laboratory Results - last 24 hr 07/26/22 05:08: WBC 8.2, RBC 3.92 L, Hgb 12.3 L, Hct 37.5 L, MCV 95.7 H, MCH 31.4, MCHC 32.8, RDW Std Deviation 48.8 H, RDW Coeff of [place] 13.8, Plt Count 203, MPV 9.1, Immature Gran % (Auto) 2.300 H, Neut % (Auto) 85.5 H, Lymph % (Auto) 4.2 L, [place] % (Auto) 7.1, Eos % (Auto) 0.0, Baso % (Auto) 0.9, Absolute Neuts (auto) 7.0, Absolute Lymphs (auto) 0.34 L, Nucleated RBC % 0, Differential Comment SCANNED 07/26/22 05:08: Sodium 147 H, Potassium 2.9 L, Chloride 107, Carbon Dioxide 34.0 H, Anion Gap 6, BUN 31 H, Creatinine 1.53 H, Estim Creat Clear Calc 54.64, Est GFR (MDRD) Af Amer 62, Est GFR (MDRD) Non-Af 51 L, BUN/Creatinine Ratio 20.3 H, Glucose 126 H, Calcium 8.0 L Micro: Microbiology 07/24/22 15:50 Nasal Secretion SARS-CoV-2 & FLU Antigen (Rapid) - Final Physical Exam Narrative General: Alert, disoriented, Cooperative, No apparent distress HEENT: Atraumatic, PERRLA, EOMI, Normocephalic Oral: Moist mucosa Neck: Supple, No JVD Lungs: Diminished, Normal air movement, No rhonchi, No wheeze, No rales Cardiovascular: Regular rate, Regular Rhythm, Normal S1, Normal S2, No murmurs Abdomen: Soft, Non Tender, Non-Distended, No Hepato-splenomegaly Extremities: No edema, Capillary Refill Less than 3 Seconds Skin: No rashes, No breakdown Musculoskeletal: No Tenderness to Palpation of Joints or Extremities Neurological: Cranial nerves II-XII grossly intact, Motor Exam 5/5 strength throughout, Sensory exam intact to light touch and pain Psych/Mental Status: Flat affect Assessment & Plan Assessment/Plan (1) Acute kidney injury: (2) Acute metabolic encephalopathy: PLAN: Plan 1. Acute metabolic encephalopathy from acute renal failure and pneumonia with acute hypoxia/hypokalemia likely from diarrhea/unknown on anion gap metabolic alkalosis likely from diarrhea ? Continue with IV fluids ?EEG was unremarkable ? Will continue on IV Zosyn for his pneumonia ? We will wean his oxygen as able ? He does have a right middle lobe infiltrate and a left lower lobe infiltrate could possibly due to aspiration unclear at the moment ?Potassium is improving we will replace, phosphorus and magnesium are normal 2. History of schizoaffective disorder ? Given his altered mental status we will hold his home Seroquel, Lexapro, trazodone 3. Hypertension ? He is little bit hypotensive here though improving with fluids ? We will hold Norvasc, propranolol, lisinopril and hydrochlorothiazide we will monitor for rebound tachycardia ? Continue with fludrocortisone 4. Iron deficiency anemia ? Continue with his iron replacement 5. GERD ? Stable ? Continue with Pepcid DVT: Heparin Charges/Coding Visit Charges Inpatient E&M: 78206 Subs Hosp L2
[2022-07-26 16:06] VITALS: BP 109/79; PULSE 86; RESP 18; TEMP 37; O2SAT 96
[2022-07-26 21:09] VITALS: BP 148/76; PULSE 86; RESP 18; TEMP 36.8; O2SAT 97
[2022-07-27] MEDS: 0.9% Normal Saline 1,000 ML 75 ML IV (01:15)
[2022-07-27 02:46] VITALS: BP 155/83; PULSE 90; RESP 18; TEMP 37; O2SAT 97
[2022-07-27 05:40] LABS: Anion Gap 3 (5-15); BUN 34 mg/dL (7-18); BUN/Creat Ratio 23.8 RATIO (10-20); Calcium,Total 8.4 mg/dL (8.5-10.1); Chloride 110 mmol/L (98-107); Creatinine, Serum 1.43 mg/dL (0.70-1.30); EST Glomerular Filtration Rate 55 mL/min (>60); Est Glom Filt Rate - Afr Amer 67 mL/min (>60); Estimated Creatinine Clearance 58.46 ml/min; Glucose 107 mg/dL (74-106); Potassium 3.4 mmol/L (3.5-5.1); Sodium Level 148 mmol/L (136-145)
[2022-07-27] MEDS: Heparin Injection (Vial) 5,000 UNIT/ML VIAL 5000 UNIT SC ×3 (05:45→22:04)
[2022-07-27] MEDS: Hydrocortisone Sod Succinate 100 MG/2 ML Vial IV (05:47)
[2022-07-27 08:28] VITALS: O2SAT 93
[2022-07-27] MEDS: Famotidine 20 MG Tablet PO (08:39)
[2022-07-27] MEDS: Cholecalciferol (VIT D3) 25 MCG TABLET (1,000 UNITS) 50 MCG PO (08:39)
[2022-07-27] MEDS: QUEtiapine 100 MG Tablet 300 MG PO ×2 (08:39→22:04)
[2022-07-27] MEDS: Potassium Chloride Oral Tablet 20 MEQ 60 MEQ PO (08:39)
[2022-07-27] MEDS: Benztropine 2 MG Tablet 1 MG PO ×2 (08:40→22:05)
[2022-07-27] MEDS: Calcium (Elemental) 500 MG Tablet PO ×2 (08:40→17:49)
[2022-07-27] MEDS: Ferrous Sulfate 325 MG Tablet PO ×2 (08:40→17:49)
[2022-07-27] MEDS: Aspirin E.C. 81 MG Tablet PO (08:40)
[2022-07-27] MEDS: Divalproex (ER) 500 MG Tablet PO ×2 (08:40→22:04)
[2022-07-27] MEDS: Menthol/Lanolin/Calamine/Znox 113 GM Tube 1 APPLIC TOPICAL ×2 (08:44→22:03)
[2022-07-27 09:00] VITALS: BP 186/95; PULSE 65; RESP 16; TEMP 36.9; O2SAT 96
--- NOTE | 2022-07-27 11:36 | PCM.PN.HOSP ---
Subjective Subjective Alert and conversational. No issues overnight Objective Data Objective Data Vital Signs: Vital Signs Temp Pulse Resp BP Pulse Ox O2 Del Method O2 Flow Rate 98.4 F 65 16 186/95 H 96 Room Air 2 07/27/22 09:00 07/27/22 09:00 07/27/22 09:00 07/27/22 09:00 07/27/22 09:00 07/27/22 10:00 07/27/22 08:28 Oxygen Flow Rate (L/min) 2 Oxygen Delivery Method Room Air Weight: 195 lb 15.855 oz Body Mass Index (BMI) 30.2 Intake & Output: Intake and Output for Last 24 Hours 07/26/22 07/27/22 07/28/22 03:59 03:59 03:59 Intake Total 2620.0 / 2620.0 4095.0 / 4095.0 Output Total 1500 / 1500 500 / 500 Balance 1120.0 / 1120.0 3595.0 / 3595.0 Lab / Micro Data Result Diagrams: 07/26/22 05:08 07/27/22 04:05 Labs: Laboratory Results - last 24 hr 07/27/22 04:05: Sodium 148 H, Potassium 3.4 L, Chloride 110 H, Carbon Dioxide 35.0 H, Anion Gap 3 L, BUN 34 H, Creatinine 1.43 H, Estim Creat Clear Calc 58.46, Est GFR (MDRD) Af Amer 67, Est GFR (MDRD) Non-Af 55 L, BUN/Creatinine Ratio 23.8 H, Glucose 107 H, Calcium 8.4 L Micro: Microbiology 07/24/22 18:45 Blood Culture (Wb) - Anticubital Right Blood Culture - Preliminary No growth in 48 hours. 07/24/22 16:25 Blood Culture (Wb) - Anticubital Left Blood Culture - Preliminary No growth in 48 hours. 07/24/22 15:50 Nasal Secretion SARS-CoV-2 & FLU Antigen (Rapid) - Final Physical Exam Narrative General: Alert, oriented, Cooperative, No apparent distress HEENT: Atraumatic, PERRLA, EOMI, Normocephalic Oral: Moist mucosa Neck: Supple, No JVD Lungs: Diminished, Normal air movement, No rhonchi, No wheeze, No rales Cardiovascular: Regular rate, Regular Rhythm, Normal S1, Normal S2, No murmurs Abdomen: Soft, Non Tender, Non-Distended, No Hepato-splenomegaly Extremities: No edema, Capillary Refill Less than 3 Seconds Skin: No rashes, No breakdown Musculoskeletal: No Tenderness to Palpation of Joints or Extremities Neurological: Cranial nerves II-XII grossly intact, Motor Exam 5/5 strength throughout, Sensory exam intact to light touch and pain Psych/Mental Status: Flat affect Assessment & Plan Assessment/Plan (1) Acute kidney injury: (2) Acute metabolic encephalopathy: PLAN: Plan 1. Acute metabolic encephalopathy from acute renal failure and pneumonia with acute hypoxia/hypokalemia likely from diarrhea/unknown on anion gap metabolic alkalosis likely from diarrhea ?We DC IV fluids as his sodium is climbed, will allow him to eat and drink ? Encephalopathy has resolved ?EEG was unremarkable ?We will convert Zosyn to Augmentin ? We will wean his oxygen as able ? He does have a right middle lobe infiltrate and a left lower lobe infiltrate could possibly due to aspiration unclear at the moment 2. History of schizoaffective disorder ? Given his altered mental status we will hold his home Seroquel, Lexapro, trazodone 3. Hypertension ? He is little bit hypotensive here though improving with fluids ?We will restart his home blood pressure medications ? Continue with fludrocortisone 4. Iron deficiency anemia ? Continue with his iron replacement 5. GERD ? Stable ? Continue with Pepcid DVT: Heparin Charges/Coding Visit Charges Inpatient E&M: 15482 Subs Hosp L2
[2022-07-27] MEDS: amLODIPine 10 MG Tablet PO (12:01)
[2022-07-27 16:15] VITALS: BP 173/96; PULSE 80; RESP 14; TEMP 36.8; O2SAT 98
[2022-07-27 18:00] VITALS: BP 173/96; PULSE 80; RESP 14; TEMP 36.8; O2SAT 98
[2022-07-27] MEDS: 0.9% Saline Lock 10 ML Syringe IV (19:38)
[2022-07-27] MEDS: Ondansetron 4 MG/2 ML Vial IV (19:38)
[2022-07-27] MEDS: traZODone 100 MG Tablet PO (22:02)
[2022-07-27 22:17] VITALS: BP 142/96; PULSE 110; RESP 16; TEMP 37.6; O2SAT 97
[2022-07-27] MEDS: Amox/Clavulanate 875 MG Tablet PO (22:17)
[2022-07-28 03:53] VITALS: BP 146/92; PULSE 79; RESP 16; TEMP 37.6; O2SAT 96
[2022-07-28] MEDS: Heparin Injection (Vial) 5,000 UNIT/ML VIAL 5000 UNIT SC (06:07)
[2022-07-28 07:35] LABS: Anion Gap 4 (5-15); BUN 18 mg/dL (7-18); BUN/Creat Ratio 21.8 RATIO (10-20); Calcium,Total 8.6 mg/dL (8.5-10.1); Chloride 103 mmol/L (98-107); Creatinine, Serum 0.82 mg/dL (0.70-1.30); EST Glomerular Filtration Rate 104 mL/min (>60); Est Glom Filt Rate - Afr Amer 126 mL/min (>60); Estimated Creatinine Clearance 101.95 ml/min; Glucose 105 mg/dL (74-106); Potassium 3.4 mmol/L (3.5-5.1); Sodium Level 144 mmol/L (136-145)
[2022-07-28 07:55] VITALS: O2SAT 95
[2022-07-28 08:15] VITALS: BP 132/89; PULSE 90; RESP 17; TEMP 37.5; O2SAT 95
[2022-07-28] MEDS: Calcium (Elemental) 500 MG Tablet PO (09:11)
[2022-07-28] MEDS: Potassium Chloride Oral Tablet 20 MEQ 60 MEQ PO (09:11)
[2022-07-28] MEDS: amLODIPine 10 MG Tablet PO (09:11)
[2022-07-28] MEDS: Aspirin E.C. 81 MG Tablet PO (09:11)
[2022-07-28] MEDS: Amox/Clavulanate 875 MG Tablet PO (09:11)
[2022-07-28] MEDS: Ferrous Sulfate 325 MG Tablet PO (09:11)
[2022-07-28] MEDS: Benztropine 2 MG Tablet 1 MG PO (09:14)
[2022-07-28] MEDS: Fludrocortisone Acetate 0.1 MG Tablet PO (09:15)
[2022-07-28] MEDS: Famotidine 20 MG Tablet PO (09:15)
[2022-07-28] MEDS: QUEtiapine 100 MG Tablet 300 MG PO (09:15)
[2022-07-28] MEDS: Cholecalciferol (VIT D3) 25 MCG TABLET (1,000 UNITS) 50 MCG PO (09:16)
[2022-07-28] MEDS: Divalproex (ER) 500 MG Tablet PO (09:31)
--- NOTE | 2022-07-28 10:13 | PCM.TXEXTCAR ---
Diet Diet Order/Speech Therapy: 07/25/22 08:45 Diet: Regular - General Is pt able to select menu?: Yes Routine Orders/Code Status Routine Lab Work: CBC and BMP Code Status: Full Code Therapies Physical Therapy: Eval and Treat Occupational Therapy: Eval and Treat Problem/Diagnosis (1) Acute kidney injury: Status: Acute Code(s): N17.9 - Acute kidney failure, unspecified (2) Acute metabolic encephalopathy: Status: Acute Code(s): G93.41 - Metabolic encephalopathy Plan 1. Acute metabolic encephalopathy from acute renal failure and pneumonia with acute hypoxia/hypokalemia likely from diarrhea/unknown on anion gap metabolic alkalosis likely from diarrhea ?We DC IV fluids as his sodium is climbed, will allow him to eat and drink ? Encephalopathy has resolved ?EEG was unremarkable ?We will convert Zosyn to Augmentin ? We will wean his oxygen as able ? He does have a right middle lobe infiltrate and a left lower lobe infiltrate could possibly due to aspiration unclear at the moment 2. History of schizoaffective disorder ? Given his altered mental status we will hold his home Seroquel, Lexapro, trazodone 3. Hypertension ? He is little bit hypotensive here though improving with fluids ?We will restart his home blood pressure medications ? Continue with fludrocortisone 4. Iron deficiency anemia ? Continue with his iron replacement 5. GERD ? Stable ? Continue with Pepcid DVT: Heparin Allergies/Procedures Done in Hospital Allergies acetic acid Allergy (Verified 07/24/22 15:08) PT UNABLE TO RESPOND-NEEDS F/U nut - unspecified [nuts] Allergy (Verified 07/24/22 15:08) PT UNABLE TO RESPOND-NEEDS F/U Penicillins Allergy (Verified 07/24/22 15:08) PT UNABLE TO RESPOND-NEEDS F/U risperidone Allergy (Verified 07/24/22 15:08) PT UNABLE TO RESPOND-NEEDS F/U Procedures: None Type of Care/Length of Stay Estimated LOS: More Than 30 Days Type of Care Needed: Intermediate Rehab Potential: Fair Prognosis: Fair Additional Orders/Day of Discharge Day of Discharge: 07/28/22 Dietary and Speech Recommendations Dietitian Recommendations/Changes: Continue Regular diet to optimize oral intakes. Discharge Plan Admission Admit Date/Time: 07/24/22 17:37 Attending Provider: Seth Saleh Primary Care Provider: Lex Jiang Consulting Providers: Josy Damian Discharge Orders/Prescriptions Prescriptions: New amoxicillin-pot clavulanate 875-125 mg Tablet 875 mg PO BIDCM 3 Days Qty: 6 0RF Continued albuterol sulfate 0.63 mg/3 mL solution for nebulization 0.63 mg inhalation Q4H PRN (Reason: Shortness Of Breath) lorazepam [Ativan] 2 mg/mL Solution 2 mg IV Q6H PRN (Reason: AGITSTION) cyanocobalamin (vitamin B-12) 1,000 mcg Tablet 1,000 mcg PO WE famotidine [Pepcid] 20 mg Tablet 20 mg PO DAILY trazodone 100 mg Tablet 100 mg PO DAILY lorazepam 2 mg Tablet 2 mg PO TID lorazepam [Ativan] 2 mg Tablet 2 mg PO Q6H PRN (Reason: Agitation) amlodipine [Norvasc] 10 mg Tablet 10 mg PO DAILY ferrous sulfate [FeroSul] 325 mg (65 mg iron) Tablet 325 mg PO BID divalproex [Depakote ER] 500 mg Tablet Extended Release 24 Hr 500 mg PO BID benztropine 1 mg Tablet 1 mg PO BID hydrochlorothiazide 25 mg Tablet 25 mg PO DAILY fluticasone propionate [Flonase Allergy Relief] 50 mcg/actuation [place],Suspension 1 spray INTRANASAL DAILY fludrocortisone 0.1 mg Tablet 0.1 mg PO DAILY escitalopram oxalate [Lexapro] 10 mg Tablet 10 mg PO BID quetiapine [Seroquel XR] 300 mg Tablet Extended Release 24 Hr 600 mg PO QHS Fanapt 6 mg tablet 6 mg PO DAILY Fanapt 12 mg tablet 12 mg PO DAILY Metamucil 3.4 gram/5.4 gram Powder 1 tbsp PO DAILY loperamide 2 mg Capsule 2 mg PO Q4H PRN (Reason: STOOL) aspirin 81 mg Tablet,Delayed Release (Dr/Ec) 81 mg PO DAILY famotidine [Pepcid] 20 mg Tablet 20 mg PO DAILY magnesium hydroxide [Milk of Magnesia] 400 mg/5 mL Suspension 30 ml PO Q24H PRN (Reason: Constipation) calcium carbonate 500 mg calcium (1,250 mg) Tablet 500 mg PO BID bisacodyl [Dulcolax (bisacodyl)] 10 mg Suppository 10 mg [place] DAILY PRN (Reason: Constipation) lisinopril 10 mg tablet 10 mg PO DAILY propranolol 80 mg capsule,extended release 24 hr 80 mg PO DAILY alum-mag hydroxide-simeth 200-200-20 mg/5 mL Suspension 30 ml PO Q4H PRN (Reason: Heartburn) cholecalciferol (vitamin D3) [Vitamin D3] 50 mcg (2,000 unit) Tablet 50 mcg PO DAILY Mucus Relief ER 1,200 mg tablet extended release 12hr 1,200 mg PO BID PRN (Reason: MUCUS RELIEF) Referrals / Follow Up: Lex Jiang MD [Primary Care Provider] - Disposition Disposition (needs filled in before D/C Order can be placed): [facility]
--- NOTE | 2022-07-28 10:18 | PCM.DC.SUM ---
Providers Date of Admission: 07/24/22 Primary Care Physician: Dr. Lex Jiang MD Reason For Visit: GURJIT/HYPOKALEMIA Diagnosis Discharge Diagnosis (1) Acute kidney injury: Status: Acute Code(s): N17.9 - Acute kidney failure, unspecified (2) Acute metabolic encephalopathy: Status: Acute Code(s): G93.41 - Metabolic encephalopathy Medications at Discharge Home Medications albuterol sulfate 0.63 mg/3 mL solution for nebulization 0.63 mg inhalation Q4H PRN Shortness Of Breath 06/04/22 amlodipine 10 mg tablet (Norvasc) 10 mg PO DAILY BLOOD PRESSURE 06/04/22 benztropine 1 mg tablet 1 mg PO BID 06/04/22 cyanocobalamin (vitamin B-12) 1,000 mcg tablet 1,000 mcg PO WE SUPPLEMENT 06/04/22 divalproex 500 mg tablet,extended release 24 hr (Depakote ER) 500 mg PO BID MENTAL HEALTH 06/04/22 escitalopram oxalate 10 mg tablet (Lexapro) 10 mg PO BID MENTAL HEALTH 06/04/22 famotidine 20 mg tablet (Pepcid) 20 mg PO DAILY ACID REFLUX 06/04/22 ferrous sulfate 325 mg (65 mg iron) tablet (FeroSul) 325 mg PO BID SUPPLEMENT 06/04/22 fludrocortisone 0.1 mg tablet 0.1 mg PO DAILY 06/04/22 fluticasone propionate 50 mcg/actuation nasal spray,suspension (Flonase Allergy Relief) 1 spray intranasal DAILY ALLERGIES 06/04/22 hydrochlorothiazide 25 mg tablet 25 mg PO DAILY BLOOD PRESSURE 06/04/22 iloperidone 12 mg tablet (Fanapt) 12 mg PO DAILY MENTAL HEALTH 06/04/22 iloperidone 6 mg tablet (Fanapt) 6 mg PO DAILY MENTAL HEALTH 06/04/22 lorazepam 2 mg tablet 2 mg PO TID AGITATION 06/04/22 lorazepam 2 mg tablet (Ativan) 2 mg PO Q6H PRN Agitation 06/04/22 lorazepam 2 mg/mL injection solution (Ativan) 2 mg IV Q6H PRN AGITSTION 06/04/22 psyllium husk 3.4 gram/5.4 gram oral powder (Metamucil) 1 tbsp PO DAILY 06/04/22 quetiapine 300 mg tablet,extended release 24 hr (Seroquel XR) 600 mg PO QHS MENTAL HEALTH 06/04/22 trazodone 100 mg tablet 100 mg PO DAILY MENTAL HEALTH 06/04/22 aluminum-mag hydroxide-simethicone 200 mg-200 mg-20 mg/5 mL oral susp 30 ml PO Q4H PRN Heartburn 07/24/22 aspirin 81 mg tablet,delayed release 81 mg PO DAILY HEART HEALTH 07/24/22 bisacodyl 10 mg rectal suppository (Dulcolax (bisacodyl)) 10 mg [place] DAILY PRN Constipation 07/24/22 calcium carbonate 500 mg calcium (1,250 mg) tablet 500 mg PO BID SUPPLEMENT 07/24/22 cholecalciferol (vitamin D3) 50 mcg (2,000 unit) tablet (Vitamin D3) 50 mcg PO DAILY SUPPLEMENT 07/24/22 famotidine 20 mg tablet (Pepcid) 20 mg PO DAILY ACID REFLUX 07/24/22 guaifenesin 1,200 mg tablet, extended release 12 hr (Mucus Relief ER) 1,200 mg PO BID PRN MUCUS RELIEF 07/24/22 lisinopril 10 mg tablet 10 mg PO DAILY BLOOD PRESSURE 07/24/22 loperamide 2 mg capsule 2 mg PO Q4H PRN STOOL 07/24/22 magnesium hydroxide 400 mg/5 mL oral suspension (Milk of Magnesia) 30 ml PO Q24H PRN Constipation 07/24/22 propranolol 80 mg capsule,24 hr,extended release 80 mg PO DAILY BLOOD PRESSURE 07/24/22 amoxicillin 875 mg-potassium clavulanate 125 mg tablet 875 mg PO BIDCM 3 days #6 tabs 07/28/22 Hospital Course Operations None Procedures Electroencephalogram Summary of Care Provided Minutes Spent on Discharge: 40 Hospital Course: Per HPI: TEGAN CARLALICIAELLE, is a 52 M who presents with the above. Patient is a poor historian.? He is lethargic and not able to answer my questions.? I called his long term [facility] and I was told that he has chronic psych history, he is usually alert and oriented x3, able to carry a conversation.? He has had some diarrhea ongoing for couple of days.? Today his nurse noted that his blood pressure was low, he was also very weak and not easily arousable. Review of chart shows that patient has history of bipolar disorder, schizoaffective disorder adrenal insufficiency, on fludrocortisone. Vitals in ED showed blood pressure 75/46, heart rate 56, respiratory 14, temperature 96.6 F, oxygen sat 98% on 4 L.? WBC 9.0, hemoglobin 11.2, platelet count 190.? INR 1.2.? Sodium 137, potassium 2.5, chloride 90, bicarbonate 38, BUN 41, creatinine 4.08, previous creatinine 0.67.? Lactic acid 1.6.? Magnesium 2.4, phosphorus 4.4.? Troponin 9.? Ammonia 26.? UA is unremarkable.? Valproic acid is 90. Admitting chest x-ray showed patchy right middle lobe infiltrate with increased markings in the posterior medial segment of the left lower lobe. Brain CT showed no acute intracranial pathology. In the emergency room, patient's blood pressure was relatively low, improved with IV fluid boluses Hospital Course: 1. Acute metabolic encephalopathy from acute renal failure pneumonia with acute hypoxia/hypokalemia likely from diarrhea/metabolic alkalosis likely from diarrhea?52-year-old male presents from psychiatric facility due to his schizophrenia with altered mental status. An EEG was performed to rule out seizures which was unremarkable. He has had significant improvement with IV fluids and holding some of his mental health medications initially on arrival. These were restarted and he is currently alert and conversational which appears to be his baseline. I did have to stop his fluids due to mild hyponatremia which has resolved on the day of discharge. His renal function is back to normal at 0.82 on discharge. He will need 3 more days of Augmentin to complete antibiotic course for his pneumonia. He still on a little bit of oxygen at rest. We will plan for discharge back to the psychiatric facility today without changing any of his mental health medications. Would recommend monitoring of his BMP and his and his CBC as an outpatient, his potassium today was low at 3.4 but was replaced. 2. History of schizoaffective disorder, hypertension, iron deficiency anemia, GERD are all chronic medical conditions which complicate his care. His home medications were continued where appropriate Physical Exam Narrative General: Alert, oriented, Cooperative, No apparent distress HEENT: Atraumatic, PERRLA, EOMI, Normocephalic Oral: Moist mucosa Neck: Supple, No JVD Lungs: Diminished, Normal air movement, No rhonchi, No wheeze, No rales Cardiovascular: Regular rate, Regular Rhythm, Normal S1, Normal S2, No murmurs Abdomen: Soft, Non Tender, Non-Distended, No Hepato-splenomegaly Extremities: No edema, Capillary Refill Less than 3 Seconds Skin: No rashes, No breakdown Musculoskeletal: No Tenderness to Palpation of Joints or Extremities Neurological: Cranial nerves II-XII grossly intact, Motor Exam 5/5 strength throughout, Sensory exam intact to light touch and pain Psych/Mental Status: Flat affect Weight / BMI Weight Weight: 192 lb 7.417 oz Body Mass Index (BMI) 30.2 ABG / Lab / Microbiology Data Result Diagrams: 07/26/22 05:08 07/28/22 06:10 Laboratory: Laboratory Results - last 24 hr 07/28/22 06:10: Sodium 144, Potassium 3.4 L, Chloride 103, Carbon Dioxide 37.0 H, Anion Gap 4 L, BUN 18, Creatinine 0.82, Estim Creat Clear Calc 101.95, Est GFR (MDRD) Af Amer 126, Est GFR (MDRD) Non-Af 104, BUN/Creatinine Ratio 21.8 H, Glucose 105, Calcium 8.6 Microbiology: Microbiology 07/24/22 18:45 Blood Culture (Wb) - Anticubital Right Blood Culture - Preliminary No growth in 48 hours. 07/24/22 16:25 Blood Culture (Wb) - Anticubital Left Blood Culture - Preliminary No growth in 48 hours. 07/24/22 15:50 Nasal Secretion SARS-CoV-2 & FLU Antigen (Rapid) - Final Meaningful Use Info Meaningful Use Diagnoses (Choose all that apply): None applicable Discharge Plan Admission Admit Date/Time: 07/24/22 17:37 Attending Provider: Seth Saleh Primary Care Provider: Lex Jiang Consulting Providers: Josy Damian Discharge Orders/Prescriptions Prescriptions: New amoxicillin-pot clavulanate 875-125 mg Tablet 875 mg PO BIDCM 3 Days Qty: 6 0RF Continued albuterol sulfate 0.63 mg/3 mL solution for nebulization 0.63 mg inhalation Q4H PRN (Reason: Shortness Of Breath) lorazepam [Ativan] 2 mg/mL Solution 2 mg IV Q6H PRN (Reason: AGITSTION) cyanocobalamin (vitamin B-12) 1,000 mcg Tablet 1,000 mcg PO WE famotidine [Pepcid] 20 mg Tablet 20 mg PO DAILY trazodone 100 mg Tablet 100 mg PO DAILY lorazepam 2 mg Tablet 2 mg PO TID lorazepam [Ativan] 2 mg Tablet 2 mg PO Q6H PRN (Reason: Agitation) amlodipine [Norvasc] 10 mg Tablet 10 mg PO DAILY ferrous sulfate [FeroSul] 325 mg (65 mg iron) Tablet 325 mg PO BID divalproex [Depakote ER] 500 mg Tablet Extended Release 24 Hr 500 mg PO BID benztropine 1 mg Tablet 1 mg PO BID hydrochlorothiazide 25 mg Tablet 25 mg PO DAILY fluticasone propionate [Flonase Allergy Relief] 50 mcg/actuation [place],Suspension 1 spray INTRANASAL DAILY fludrocortisone 0.1 mg Tablet 0.1 mg PO DAILY escitalopram oxalate [Lexapro] 10 mg Tablet 10 mg PO BID quetiapine [Seroquel XR] 300 mg Tablet Extended Release 24 Hr 600 mg PO QHS Fanapt 6 mg tablet 6 mg PO DAILY Fanapt 12 mg tablet 12 mg PO DAILY Metamucil 3.4 gram/5.4 gram Powder 1 tbsp PO DAILY loperamide 2 mg Capsule 2 mg PO Q4H PRN (Reason: STOOL) aspirin 81 mg Tablet,Delayed Release (Dr/Ec) 81 mg PO DAILY famotidine [Pepcid] 20 mg Tablet 20 mg PO DAILY magnesium hydroxide [Milk of Magnesia] 400 mg/5 mL Suspension 30 ml PO Q24H PRN (Reason: Constipation) calcium carbonate 500 mg calcium (1,250 mg) Tablet 500 mg PO BID bisacodyl [Dulcolax (bisacodyl)] 10 mg Suppository 10 mg [place] DAILY PRN (Reason: Constipation) lisinopril 10 mg tablet 10 mg PO DAILY propranolol 80 mg capsule,extended release 24 hr 80 mg PO DAILY alum-mag hydroxide-simeth 200-200-20 mg/5 mL Suspension 30 ml PO Q4H PRN (Reason: Heartburn) cholecalciferol (vitamin D3) [Vitamin D3] 50 mcg (2,000 unit) Tablet 50 mcg PO DAILY Mucus Relief ER 1,200 mg tablet extended release 12hr 1,200 mg PO BID PRN (Reason: MUCUS RELIEF) Referrals / Follow Up: Lex Jiang MD [Primary Care Provider] - Disposition Disposition (needs filled in before D/C Order can be placed[facility] Charges/Coding Visit Charges Inpatient E&M: 38793 Disch Hosp >30min
[2022-07-28 10:55] VITALS: BP 135/92; TEMP 36.8
[2022-07-28] MEDS: Lisinopril 10 MG Tablet PO (10:58)
[2022-07-28] MEDS: Menthol/Lanolin/Calamine/Znox 113 GM Tube 1 APPLIC TOPICAL (10:58)
[2022-07-28] MEDS: hydroCHLOROthiazide 25 MG Tablet PO (10:58)
--- NOTE | 2022-07-28 12:37 | NURSING ---
Called report to nurse Judge at [facility]
[2022-07-28 12:49] VITALS: BP 117/80; PULSE 93; RESP 16; TEMP 36.6; O2SAT 96
== END 2022-07-28 14:17 | disposition skilled nursing facility (03) | DRG 177 ==
LOC: ED 17:42 → PCU 18:01
PROVIDERS: Admitting Provider Internal Medicine; Emergency Provider Emergency Medicine; PCP Family Medicine; Visit Provider Family Medicine
DX: J69.0 Pneumonitis due to inhalation of food and vomit (principal); G93.41 Metabolic encephalopathy; E87.3 Alkalosis; N17.9 Acute kidney failure, unspecified; J44.0 Chronic obstructive pulmonary disease with (acute) lower respiratory infection; F25.9 Schizoaffective disorder, unspecified; I95.9 Hypotension, unspecified; F31.9 Bipolar disorder, unspecified; I10 Essential (primary) hypertension; E87.6 Hypokalemia; K21.9 Gastro-esophageal reflux disease without esophagitis; D50.9 Iron deficiency anemia, unspecified; R19.7 Diarrhea, unspecified; R09.02 Hypoxemia; Z79.82 Long term (current) use of aspirin; Z79.52 Long term (current) use of systemic steroids
CPT/HCPCS: 36415; 36600; 70450; 71045; 80048; 80053; 80076; 80164; 81001; 82140; 82803; 83605; 83735; 84100; 84484; 85025; 85610; 85730; 87040; 87426; 87428; 93005; 95819; 99285; J7030; A4216; J2405

== ENCOUNTER 2024-06-24 02:47 | Inpatient (IN) | payer MEDICARE, MEDICAID, SELFPAY ==
[2024-06-24] VITALS (30 sets, daily range): BP systolic 119–175; BP diastolic 65–93; PULSE 57–89; RESP 12–28; TEMP 36.2–36.8; O2SAT 87–99; BMI 40.0; BMI 38.5
--- NOTE | 2024-06-24 03:08 | ED.VIS.DYS ---
HPI History of Present Illness Chief Complaint: Shortness of Breath Informant: patient Onset/Context/Timing Onset: Today Context: gradual Timing: Continuous Quality: Positive for Dyspnea on exertion Worsened by: Exertion Relieved by: Nothing Associated Symptoms cough and sore throat; Negative for rhinorrhea, post nasal drip, ear pain, fever, chills, clear sputum, white sputum, yellow sputum or green sputum Chest Pain: Positive for None Narrative Narrative: Patient presents with shortness of breath that began today. Patient states he has been having a cough. Patient denies any sputum production. Patient admits to some subjective fevers and chills. Patient also admits to a sore throat. Patient states his breathing is worse with any activity. Patient denies any chest pain. Patient denies any rhinorrhea. Patient states nothing makes his breathing any better. Patient is a poor informant. [facility] Medical History Bradycardia Chronic anal fissure Cellulitis Adrenocortical insufficiency Anemia Schizo affective schizophrenia Legally blind Intermittent explosive disorder COPD (chronic obstructive pulmonary disease) Hypertension Asthma Gastroparesis Cyclical vomiting Thrombocythemia Hypocalcemia Anxiety Home Medications ?Medication ?Instructions ?Recorded ?Last Taken ?Type albuterol sulfate 0.63 mg/3 mL 0.63 mg inhalation Q4H PRN 06/04/22 Unknown History solution for nebulization Shortness Of Breath amlodipine 10 mg tablet (Norvasc) 10 mg PO DAILY BLOOD PRESSURE 06/04/22 07/24/22 08:00 History benztropine 1 mg tablet 1 mg PO BID 06/04/22 07/23/22 History cyanocobalamin (vitamin B-12) 1,000 mcg PO WE SUPPLEMENT 06/04/22 07/24/22 08:00 History 1,000 mcg tablet escitalopram oxalate 10 mg tablet 10 mg PO BID MENTAL HEALTH 06/04/22 07/24/22 08:00 History (Lexapro) famotidine 20 mg tablet (Pepcid) 20 mg PO DAILY ACID REFLUX 06/04/22 07/23/22 History ferrous sulfate 325 mg (65 mg 325 mg PO BID SUPPLEMENT 06/04/22 07/24/22 08:00 History iron) tablet (FeroSul) fludrocortisone 0.1 mg tablet 0.1 mg PO DAILY 06/04/22 07/24/22 08:00 History fluticasone propionate 50 1 spray intranasal DAILY ALLERGIES 06/04/22 07/24/22 08:00 History mcg/actuation nasal spray,suspension (Flonase Allergy Relief) hydrochlorothiazide 25 mg tablet 25 mg PO DAILY BLOOD PRESSURE 06/04/22 07/24/22 08:00 History iloperidone 12 mg tablet (Fanapt) 12 mg PO DAILY MENTAL HEALTH 06/04/22 07/23/22 History iloperidone 6 mg tablet (Fanapt) 6 mg PO DAILY MENTAL HEALTH 06/04/22 07/24/22 08:00 History lorazepam 2 mg tablet 2 mg PO TID AGITATION 06/04/22 07/24/22 14:00 History lorazepam 2 mg tablet (Ativan) 2 mg PO Q6H PRN Agitation 06/04/22 Unknown History lorazepam 2 mg/mL injection 2 mg IM Q6H PRN AGITSTION 06/04/22 Unknown History solution (Ativan) quetiapine 300 mg tablet,extended 600 mg PO QHS MENTAL HEALTH 06/04/22 07/23/22 History release 24 hr (Seroquel XR) trazodone 100 mg tablet 100 mg PO DAILY MENTAL HEALTH 06/04/22 07/23/22 History aluminum-mag hydroxide-simethicone 30 ml PO Q4H PRN Heartburn 07/24/22 Unknown History 200 mg-200 mg-20 mg/5 mL oral susp aspirin 81 mg tablet,delayed 81 mg PO DAILY HEART HEALTH 07/24/22 07/24/22 08:00 History release bisacodyl 10 mg rectal suppository 10 mg TN DAILY PRN Constipation 07/24/22 Unknown History (Dulcolax (bisacodyl)) calcium carbonate 500 mg PO BID SUPPLEMENT 07/24/22 07/24/22 08:00 History cholecalciferol (vitamin D3) 50 50 mcg PO DAILY SUPPLEMENT 07/24/22 07/24/22 08:00 History mcg (2,000 unit) tablet (Vitamin D3) guaifenesin 1,200 mg tablet, 1,200 mg PO BID PRN MUCUS RELIEF 07/24/22 Unknown History extended release 12 hr (Mucus Relief ER) loperamide 2 mg capsule 2 mg PO Q4H PRN STOOL 07/24/22 07/24/22 09:30 History magnesium hydroxide 400 mg/5 mL 30 ml PO Q24H PRN Constipation 07/24/22 Unknown History oral suspension (Milk of Magnesia) propranolol 80 mg capsule,24 80 mg PO DAILY BLOOD PRESSURE 07/24/22 07/24/22 08:00 History hr,extended release L.acidophil-L.casei-B.bifid-B.longum-FOS 1 cap PO DAILY 06/24/24 Unknown History 2 billion cell-50 mg capsule (Probiotic Blend) divalproex 125 mg capsule,delayed 250 mg PO Q8H 06/24/24 Unknown History release sprinkle ergocalciferol (vitamin D2) 50,000 50,000 unit PO TH 06/24/24 Unknown History unit tablet folic acid 400 mcg tablet 400 mcg PO DAILY 06/24/24 Unknown History hydrocortisone 10 mg tablet 10 mg PO DAILY 06/24/24 Unknown History hydrocortisone 5 mg tablet 15 mg PO DAILY 06/24/24 Unknown History lisinopril 20 mg tablet 20 mg PO DAILY 06/24/24 Unknown History pantoprazole 40 mg tablet,delayed 40 mg PO DAILY 06/24/24 Unknown History release potassium chloride 10 mEq 30 meq PO DAILY 06/24/24 Unknown History capsule,extended release Allergy/AdvReac Type Severity Reaction Status Date / Time acetic acid Allergy PT UNABLE Verified 06/24/24 02:56 TO RESPOND-NEEDS F/U nut - unspecified (nuts) Allergy PT UNABLE Verified 06/24/24 02:56 TO RESPOND-NEEDS F/U Penicillins Allergy PT UNABLE Verified 06/24/24 02:56 TO RESPOND-NEEDS F/U risperidone Allergy PT UNABLE Verified 06/24/24 02:56 TO RESPOND-NEEDS F/U Social History housing: other details: Nursing facility with psychiatric focus. Smoking Status: Unknown if ever smoked alcohol intake: never substance use type: does not use ROS ROS ED Constitutional Constitutional ED: Reports chills and fever(s) Eyes Eyes: Denies blurry vision or change in vision ENT ENT ED: Reports sore throat; Denies rhinorrhea Cardiovascular Cardiovascular: Denies chest pain or palpitations Respiratory/Chest Respiratory/Chest: Reports cough and dyspnea Gastrointestinal Gastrointestinal: Reports nausea and vomiting Genitourinary Genitourinary ED: Denies dysuria or hematuria Musculoskeletal Musculoskeletal: Denies back pain or neck pain Integumentary Denies abscess or rash Neurologic Neurologic: Denies headache(s) or weakness Allergic/Immunologic Allergic/Immunologic ED: Denies mouth swelling or urticaria EXAM Physical Exam Const Vital Signs: 06/24/24 02:48 06/24/24 02:50 06/24/24 02:59 Temperature 98.2 F Temperature Source Oral Pulse Rate 68 64 Respiratory Rate 28 H 22 H Respiratory Effort Respiratory Pattern Blood Pressure 140/79 H Blood Pressure Mean 99 Pulse Ox 90 91 Oxygen Delivery Method Room Air Nasal Cannula Oxygen Flow Rate (L/min) Fraction of Inspired Oxygen (FIO2) 2 06/24/24 03:00 06/24/24 03:12 06/24/24 03:15 Temperature Temperature Source Pulse Rate 69 57 L Respiratory Rate 24 H 23 H Respiratory Effort Normal Respiratory Pattern Blood Pressure 126/74 H 131/80 H Blood Pressure Mean 89 94 Pulse Ox 92 92 Oxygen Delivery Method Oxygen Flow Rate (L/min) Fraction of Inspired Oxygen (FIO2) 06/24/24 03:28 06/24/24 03:30 06/24/24 03:45 Temperature Temperature Source Pulse Rate 65 Respiratory Rate 20 H Respiratory Effort Respiratory Pattern Blood Pressure 119/65 142/90 H Blood Pressure Mean 81 105 Pulse Ox 93 Oxygen Delivery Method Nasal Cannula Oxygen Flow Rate (L/min) 2 Fraction of Inspired Oxygen (FIO2) 06/24/24 03:54 06/24/24 04:00 06/24/24 04:02 Temperature 98.1 F Temperature Source Temporal Pulse Rate 69 69 66 Respiratory Rate 19 H 19 H 15 Respiratory Effort Respiratory Pattern Normal Blood Pressure 142/90 H 137/78 H Blood Pressure Mean 107 94 Pulse Ox 92 92 Oxygen Delivery Method Nasal Cannula Oxygen Flow Rate (L/min) 2 Fraction of Inspired Oxygen (FIO2) 06/24/24 04:15 06/24/24 04:30 06/24/24 04:45 Temperature Temperature Source Pulse Rate 73 77 84 Respiratory Rate 19 H 15 20 H Respiratory Effort Respiratory Pattern Blood Pressure 155/83 H 153/76 H 155/82 H Blood Pressure Mean 101 98 98 Pulse Ox 93 91 90 Oxygen Delivery Method Oxygen Flow Rate (L/min) Fraction of Inspired Oxygen (FIO2) 06/24/24 05:00 06/24/24 05:15 06/24/24 05:30 Temperature Temperature Source Pulse Rate 79 78 83 Respiratory Rate 20 H 18 19 H Respiratory Effort Respiratory Pattern Blood Pressure 167/83 H 149/81 H 136/80 H Blood Pressure Mean 100 102 94 Pulse Ox 93 90 91 Oxygen Delivery Method Oxygen Flow Rate (L/min) Fraction of Inspired Oxygen (FIO2) 06/24/24 05:45 06/24/24 05:55 06/24/24 06:00 Temperature Temperature Source Pulse Rate 82 72 78 Respiratory Rate 25 H 18 17 Respiratory Effort Respiratory Pattern Normal Blood Pressure 144/82 H 155/85 H Blood Pressure Mean 100 104 Pulse Ox 87 89 Oxygen Delivery Method Nasal Cannula Oxygen Flow Rate (L/min) 4 Fraction of Inspired Oxygen (FIO2) Positive well nourished and well developed General Appearance ED: well developed and NAD HEENT Reports moist mucous membranes Neck supple and no JVD Resp normal respiratory effort Auscultation: diminished lung sounds diffuse Cardio regular rate and regular rhythm GI non-tender and non-distended Palpation: soft Neuro CN's II-XII intact bilaterally and no sensory deficits noted Motor Exam: general weakness Skin no wounds and skin turgor normal MDM MDM MDM Narrative Medical decision making narrative: Differential diagnosis includes pneumonia, bronchitis, aspiration, viral illness, cardiac dysrhythmia, cardiac ischemia, and medication side effect. Chest x-ray will be obtained to assess for pneumonia and bronchitis. EKG will be obtained to assess for cardiac dysrhythmia and cardiac ischemia. CBC will be obtained to assess for leukocytosis and anemia. Basic metabolic profile will be obtained to assess for electrolyte abnormality and renal function. High-sensitivity troponin will be obtained to assess for cardiac ischemia. Arterial blood gas will be obtained to assess for hypercarbia and respiratory depression. COVID-19, influenza, and RSV PCR will be obtained to assess for viral illness. Lab Data Attestation: I reviewed the patient's lab results. Lab results narrative: CBC was reviewed. There is a mild anemia with a hemoglobin of 11.2 and hematocrit 33.1. The remainder is within normal limits. Basic metabolic profile was reviewed. CO2 was elevated at 37. Potassium was low at 3.1. Sodium was slightly low at 134. Chloride was slightly low at 93. Glucose was minimally elevated at 113. The remainder is within normal limits. High-sensitivity troponin was reviewed and was normal at 6. Labs: Laboratory Results - last 24 hr 06/24/24 03:14 WBC 5.5 RBC 3.59 L Hgb 11.2 L Hct 33.1 L MCV 92.2 MCH 31.2 MCHC 33.8 RDW Std Deviation 46.2 H RDW Coeff of Eleanor 13.6 Plt Count 175 MPV 8.8 Immature Gran % (Auto) 0.400 Neut % (Auto) 59.2 Lymph % (Auto) 21.5 Taliaferro % (Auto) 13.1 H Eos % (Auto) 5.3 H Baso % (Auto) 0.5 Absolute Neuts (auto) 3.3 Absolute Lymphs (auto) 1.18 Nucleated RBC % 0 Sodium 134 L Potassium 3.1 L Chloride 93 L Carbon Dioxide 37.0 H Anion Gap 5 BUN 13 Creatinine 0.93 Estim Creat Clear Calc 114.05 Est GFR (MDRD) Af Amer 108 Est GFR (MDRD) Non-Af 89 BUN/Creatinine Ratio 13.9 Glucose 113 H Calcium 8.6 Troponin I High Sens 6 ABG Data Attestation: I personally reviewed and interpreted this ABG as follows: Interpretation: Arterial blood gas was reviewed. pH was 7.39. pCO2 was mildly elevated at 66.6. pO2 was 77. Bicarb was 40.2. Oxygen saturation 94% on 2 L nasal cannula. ABG results: ABG 06/24/24 03:56 Specimen Type ART Sample Site L Radial pH 7.39 Bicarbonate Actual 40.2 H Total CO2 42 Base Excess 15 H O2 Saturation 94 L O2 % 2.0 ABG pCO2 66.6 H ABG pO2 77 Fei Test Positive O2 Delivery Device Cannula Vent Mode Not entered Radiography Chest X-Ray - ED: 1 View, Read by ED Physician, Read by Radiologist and Right Infiltrate Diagnostic Testing: Clinical Impression(s) from Imaging Studies Chest X-Ray 06/24/24 04:10 IMPRESSION: No radiographic evidence of acute cardiopulmonary disease. Electronically Signed: Jennifer Dowd MD at 6:29 EST , Portable 1 view chest x-ray was obtained. On my independent interpretation, lung hope show a right perihilar and lower lobe infiltrate. There is normal cardiac silhouette. Bony thorax is normal. There is no acute process noted. Radiologist also interpreted the x-ray and did not think there was an infiltrate. EKG Initial EKG: Attestation: I personally reviewed and interpreted this EKG as follows: Interpretation: Sinus Rhythm (60) and No Acute Injury Pattern Comments: EKG was obtained. On my independent interpretation, it showed a normal sinus rhythm with a rate of 60. TN interval, QRS interval, and QTc intervals were all normal. Binford was normal. There are no acute ST or T wave changes. Prior EKG tracings: available for review Prior: Unchanged (07/24/2022) Management Discussion w/another healthcare provider: Hospitalist Additional Tests and Interventions Additional Tests or Interventions: Blood cultures were obtained prior to starting antibiotics Treatment and Re-Evaluation :: Patient was given a DuoNeb aerosol initially. Patient was doing well on 2 L nasal cannula and then his oxygen saturation started to decrease. Patient dropped to 88% on 2 L nasal cannula. Patient was increased to 4 L nasal cannula. Patient was given a repeat albuterol aerosol at that time. Patient was also given potassium replacement. Patient was started on Levaquin. Patient was advised of the need for hospitalization. Patient is agreeable with this. Case was discussed with the hospitalist. He will admit the patient to his service. Because of the patient's increased pCO2 on his blood gas and his oxygen saturations continued to drop, I did not want to keep increasing his oxygen by nasal cannula and therefore, I elected to give the patient a trial on BiPAP. This was ordered. Patient was unable to tolerate BiPAP. Case was discussed with the hospitalist. He will admit the patient to his service. He also recommended giving the patient Solu-Medrol. Patient understood and was agreeable with the plan. All questions were answered. Discharge Plan Dx/Rx/DC Orders Clinical Impression: COPD (chronic obstructive pulmonary disease), Pneumonia, Hypoxia Disposition Disposition: Acute Care Hospital [facility]
[2024-06-24 03:31] LABS: Absolute Lymphocyte Count 1.18 X10^3/uL (0.83-4.51); Absolute Neutrophil Count 3.3 X10^3/uL (2.0-7.7); Basophil# 0.03 X10^3/uL; Basophil% 0.5 % (0-1); Eosinophil# 0.29 X10^3/uL; Eosinophils% 5.3 % (0-5); Hematocrit 33.1 % (40-54); Hemoglobin 11.2 g/dL (13.0-16.5); Lymphocyte # 1.18 X10^3/ul (0.83-4.51); Lymphocyte % 21.5 % (19-41); Mean Corp Hgb Conc 33.8 g/dL (32-36); Mean Corpuscular Hgb 31.2 pg (27.0-32.0); Mean Corpuscular Volume 92.2 fL (80-94); Mean Platelet Vol. 8.8 fl (6.2-12.0); Monocyte# 0.72 X10^3/uL; Monocyte% 13.1 % (0-10); NRBC Flagged by Analyzer 0 % (0-5); Neutrophil # 3.26 X10^3/uL (2.7-7.7); Neutrophil % 59.2 % (47-70); Platelet Count 175 K/mm3 (150-450); RBC Distribution Width CV 13.6 % (11.6-14.6); RBC Distribution Width SD 46.2 fl (35.1-43.9); Red Blood Count 3.59 M/mm3 (4.6-6.2); White Blood Count 5.5 K/mm3 (4.4-11.0)
[2024-06-24] MEDS: Ipratropium/Albuterol Sulfate 3 ML AMPUL.NEB INHALATION (03:48)
[2024-06-24 03:51] LABS: Anion Gap 5 (5-15); BUN 13 mg/dL (7-18); BUN/Creat Ratio 13.9 RATIO (10-20); Calcium,Total 8.6 mg/dL (8.5-10.1); Chloride 93 mmol/L (98-107); Creatinine, Serum 0.93 mg/dL (0.70-1.30); EST Glomerular Filtration Rate 89 mL/min (>60); Est Glom Filt Rate - Afr Amer 108 mL/min (>60); Estimated Creatinine Clearance 114.05 ml/min; Glucose 113 mg/dL (74-106); Potassium 3.1 mmol/L (3.5-5.1); Sodium Level 134 mmol/L (136-145); Troponin-I HS 6 pg/mL (3.0-78.0)
[2024-06-24 03:59] LABS: Allen Test Positive; Base Excess 15 mmol/L (-2 to +2); Bicarbonate 40.2 mmol/L (22-26); Blood Gas Specimen Type ART; Mode Not entered; O2 Delivery Device Cannula; PO2 77 mmHG (75-100); SITE L Radial; SO2 94 % (95-99); Total Carbon Dioxide 42 mmol/L; pCO2 66.6 mmHg (35-45); pH 7.39 (7.35-7.45)
--- NOTE | 2024-06-24 04:10 | RAD_ITS ---
INDICATION: Dyspnea EXAMINATION/TECHNIQUE: X-RAY - XR Chest 1 View COMPARISON: CR Chest Jul 24 2022 3:22pm FINDINGS: LINES/DEVICES: None. LUNGS: No consolidation, edema or effusion. No pneumothorax. MEDIASTINUM AND CARDIOVASCULAR STRUCTURES: Cardiac silhouette not enlarged. Central airways and mediastinal contour are unremarkable. BONES AND SOFT TISSUES: Unremarkable. RAD/Chest 1 View (Portable) IMPRESSION: No radiographic evidence of acute cardiopulmonary disease. Electronically Signed: Jennifer Dowd MD at 6:29 EST ,
[2024-06-24] MEDS: Albuterol 2.5 MG/3 ML VIAL.NEB. INHALATION (05:54)
[2024-06-24] MEDS: Potassium Chloride Oral Tablet 20 MEQ 40 MEQ PO (06:06)
--- NOTE | 2024-06-24 06:25 | HP.PCM.HOS_ITS ---
[facility] - General General Date of Admission: 06/24/24 Date of Service: 06/24/24 Chief Complaint: SOB, Cough and Lethargy. HPI Narrative TEGAN MAC, is a 54 M with a past medical history of essential hypertension; on amlodipine, hydrochlorothiazide, lisinopril and propranolol, morbid obesity; with a BMI of 40 this admission, history of tobacco abuse; with subsequent asthma/COPD, schizoaffective disorder complicated by intermittent explosive disorder and chronic severe anxiety; on iloperidone, escitalopram, quetiapine, trazodone, divalproex and as needed lorazepam, history of movement disorder; on benztropine, history of adrenocortical insufficiency; on fludrocortisone and hydrocortisone, chronic anemia, history of thrombocytopenia, legally blind, listed allergy to PCN, listed allergy to risperidone, history of gastroparesis; with cyclical vomiting, GERD; on pantoprazole and famotidine, history of chronic anal fissure and history of cellulitis who was sent in from his ECF; with psychiatric focus after staff noted increasing shortness of breath, cough and lethargy. Mr. Mac is a suboptimal historian at this time so information was gathered from chart, medical staff and computer. According to the records staff at his facility noted shortness of breath that began the previous day and progressively worsened with occasional nonproductive cough. Patient admits to subjective fever and chills in addition to sore throat with shortness of breath made worse with any activity. He also admitted to the ER physician that he had some nausea and vomiting earlier in the day. He denies runny nose but he is currently unable to give any more detailed information at this time on Airvo with ongoing dyspnea complicated by nausea and vomiting with brownish emesis. In the ER he was noted to have a chest x-ray negative for acute pathologic changes and he was subsequently diagnosed with clinical evidence of AE COPD with Acute Hypoxic Respiratory Failure with his initial ABG revealing pH 7.39 / pCO2 66.6 mmHg / pO2 77 mmHg and bicarbonate of 40.2 mmol/L on 4L NC with patient subsequently transitioned to Airvo compounded by Acute Metabolic Encephalopathy with laboratory evidence of Hypokalemia of 3.1 mmol/L present on admission in the setting of ongoing Nausea and Vomiting with brownish emesis concerning for possible bleeding and he was then admitted to the ICU for ongoing care for stay that is expected to extend beyond 2 midnights. [facility], [facility] Medical History (Updated 06/24/24 @ 07:[address] Cayetano Lainez DO) Bradycardia Chronic anal fissure Cellulitis Adrenocortical insufficiency Anemia Schizo affective schizophrenia Legally blind Intermittent explosive disorder COPD (chronic obstructive pulmonary disease) Hypertension Asthma Gastroparesis Cyclical vomiting Thrombocythemia Hypocalcemia Anxiety Home Medications ?Medication ?Instructions ?Recorded ?Last Taken ?Type albuterol sulfate 0.63 mg/3 mL 0.63 mg inhalation Q4H PRN 06/04/22 Unknown History solution for nebulization Shortness Of Breath amlodipine 10 mg tablet (Norvasc) 10 mg PO DAILY BLOOD PRESSURE 06/04/22 07/24/22 08:00 History benztropine 1 mg tablet 1 mg PO BID 06/04/22 07/23/22 History cyanocobalamin (vitamin B-12) 1,000 mcg PO WE SUPPLEMENT 06/04/22 07/24/22 08:00 History 1,000 mcg tablet escitalopram oxalate 10 mg tablet 10 mg PO BID MENTAL HEALTH 06/04/22 07/24/22 08:00 History (Lexapro) famotidine 20 mg tablet (Pepcid) 20 mg PO DAILY ACID REFLUX 06/04/22 07/23/22 History ferrous sulfate 325 mg (65 mg 325 mg PO BID SUPPLEMENT 06/04/22 07/24/22 08:00 History iron) tablet (FeroSul) fludrocortisone 0.1 mg tablet 0.1 mg PO DAILY 06/04/22 07/24/22 08:00 History fluticasone propionate 50 1 spray intranasal DAILY ALLERGIES 06/04/22 07/24/22 08:00 History mcg/actuation nasal spray,suspension (Flonase Allergy Relief) hydrochlorothiazide 25 mg tablet 25 mg PO DAILY BLOOD PRESSURE 06/04/22 07/24/22 08:00 History iloperidone 12 mg tablet (Fanapt) 12 mg PO DAILY MENTAL HEALTH 06/04/22 07/23/22 History iloperidone 6 mg tablet (Fanapt) 6 mg PO DAILY MENTAL HEALTH 06/04/22 07/24/22 08:00 History lorazepam 2 mg tablet 2 mg PO TID AGITATION 06/04/22 07/24/22 14:00 History lorazepam 2 mg tablet (Ativan) 2 mg PO Q6H PRN Agitation 06/04/22 Unknown History lorazepam 2 mg/mL injection 2 mg IM Q6H PRN AGITSTION 06/04/22 Unknown History solution (Ativan) quetiapine 300 mg tablet,extended 600 mg PO QHS MENTAL HEALTH 06/04/22 07/23/22 History release 24 hr (Seroquel XR) trazodone 100 mg tablet 100 mg PO DAILY MENTAL HEALTH 06/04/22 07/23/22 History aluminum-mag hydroxide-simethicone 30 ml PO Q4H PRN Heartburn 07/24/22 Unknown History 200 mg-200 mg-20 mg/5 mL oral susp aspirin 81 mg tablet,delayed 81 mg PO DAILY HEART HEALTH 07/24/22 07/24/22 08:00 History release bisacodyl 10 mg rectal suppository 10 mg [place] DAILY PRN Constipation 07/24/22 Unknown History (Dulcolax (bisacodyl)) calcium carbonate 500 mg PO BID SUPPLEMENT 07/24/22 07/24/22 08:00 History cholecalciferol (vitamin D3) 50 50 mcg PO DAILY SUPPLEMENT 07/24/22 07/24/22 08:00 History mcg (2,000 unit) tablet (Vitamin D3) guaifenesin 1,200 mg tablet, 1,200 mg PO BID PRN MUCUS RELIEF 07/24/22 Unknown History extended release 12 hr (Mucus Relief ER) loperamide 2 mg capsule 2 mg PO Q4H PRN STOOL 07/24/22 07/24/22 09:30 History magnesium hydroxide 400 mg/5 mL 30 ml PO Q24H PRN Constipation 07/24/22 Unknown History oral suspension (Milk of Magnesia) propranolol 80 mg capsule,24 80 mg PO DAILY BLOOD PRESSURE 07/24/22 07/24/22 08:00 History hr,extended release L.acidophil-L.casei-B.bifid-B.longum-FOS 1 cap PO DAILY 06/24/24 Unknown History 2 billion cell-50 mg capsule (Probiotic Blend) divalproex 125 mg capsule,delayed 250 mg PO Q8H 06/24/24 Unknown History release sprinkle ergocalciferol (vitamin D2) 50,000 50,000 unit PO TH 06/24/24 Unknown History unit tablet folic acid 400 mcg tablet 400 mcg PO DAILY 06/24/24 Unknown History hydrocortisone 10 mg tablet 10 mg PO DAILY 06/24/24 Unknown History hydrocortisone 5 mg tablet 15 mg PO DAILY 06/24/24 Unknown History lisinopril 20 mg tablet 20 mg PO DAILY 06/24/24 Unknown History pantoprazole 40 mg tablet,delayed 40 mg PO DAILY 06/24/24 Unknown History release potassium chloride 10 mEq 30 meq PO DAILY 06/24/24 Unknown History capsule,extended release Allergy/AdvReac Type Severity Reaction Status Date / Time acetic acid Allergy PT UNABLE Verified 06/24/24 02:56 TO RESPOND-NEEDS F/U nut - unspecified (nuts) Allergy PT UNABLE Verified 06/24/24 02:56 TO RESPOND-NEEDS F/U Penicillins Allergy PT UNABLE Verified 06/24/24 02:56 TO RESPOND-NEEDS F/U risperidone Allergy PT UNABLE Verified 06/24/24 02:56 TO RESPOND-NEEDS F/U Social History housing: other details: Nursing facility with psychiatric focus. Smoking Status: Unknown if ever smoked alcohol intake: never substance use type: does not use ROS ROS Narrative Full review of systems was not possible due to patient's acute illness, nausea/vomiting and lethargy on Airvo. Vital Signs Vital Signs Vital Signs: 06/24/24 02:48 06/24/24 02:50 06/24/24 02:59 Temperature 98.2 F Temperature Source Oral Pulse Rate 68 64 Respiratory Rate 28 H 22 H Respiratory Effort Respiratory Pattern Blood Pressure 140/79 H Blood Pressure Mean 99 Pulse Ox 90 91 Oxygen Delivery Method Room Air Nasal Cannula Oxygen Flow Rate (L/min) Fraction of Inspired Oxygen (FIO2) 2 06/24/24 03:00 06/24/24 03:12 06/24/24 03:15 Temperature Temperature Source Pulse Rate 69 57 L Respiratory Rate 24 H 23 H Respiratory Effort Normal Respiratory Pattern Blood Pressure 126/74 H 131/80 H Blood Pressure Mean 89 94 Pulse Ox 92 92 Oxygen Delivery Method Oxygen Flow Rate (L/min) Fraction of Inspired Oxygen (FIO2) 06/24/24 03:28 06/24/24 03:30 06/24/24 03:45 Temperature Temperature Source Pulse Rate 65 Respiratory Rate 20 H Respiratory Effort Respiratory Pattern Blood Pressure 119/65 142/90 H Blood Pressure Mean 81 105 Pulse Ox 93 Oxygen Delivery Method Nasal Cannula Oxygen Flow Rate (L/min) 2 Fraction of Inspired Oxygen (FIO2) 06/24/24 03:54 06/24/24 04:00 06/24/24 04:02 Temperature 98.1 F Temperature Source Temporal Pulse Rate 69 69 66 Respiratory Rate 19 H 19 H 15 Respiratory Effort Respiratory Pattern Normal Blood Pressure 142/90 H 137/78 H Blood Pressure Mean 107 94 Pulse Ox 92 92 Oxygen Delivery Method Nasal Cannula Oxygen Flow Rate (L/min) 2 Fraction of Inspired Oxygen (FIO2) 06/24/24 04:15 06/24/24 04:30 06/24/24 04:45 Temperature Temperature Source Pulse Rate 73 77 84 Respiratory Rate 19 H 15 20 H Respiratory Effort Respiratory Pattern Blood Pressure 155/83 H 153/76 H 155/82 H Blood Pressure Mean 101 98 98 Pulse Ox 93 91 90 Oxygen Delivery Method Oxygen Flow Rate (L/min) Fraction of Inspired Oxygen (FIO2) 06/24/24 05:00 06/24/24 05:15 06/24/24 05:30 Temperature Temperature Source Pulse Rate 79 78 83 Respiratory Rate 20 H 18 19 H Respiratory Effort Respiratory Pattern Blood Pressure 167/83 H 149/81 H 136/80 H Blood Pressure Mean 100 102 94 Pulse Ox 93 90 91 Oxygen Delivery Method Oxygen Flow Rate (L/min) Fraction of Inspired Oxygen (FIO2) 06/24/24 05:45 06/24/24 05:55 06/24/24 06:00 Temperature Temperature Source Pulse Rate 82 72 78 Respiratory Rate 25 H 18 17 Respiratory Effort Respiratory Pattern Normal Blood Pressure 144/82 H 155/85 H Blood Pressure Mean 100 104 Pulse Ox 87 89 Oxygen Delivery Method Nasal Cannula Oxygen Flow Rate (L/min) 4 Fraction of Inspired Oxygen (FIO2) Weight Weight: 263 lb 3.711 oz Body Mass Index (BMI) 40.0 Physical Exam Const alert Constitutional Narrative: Patient is alert and somewhat appropriately responsive but is lethargic and confused in addition to being morbidly obese and chronically ill in appearance. General Appearance: cooperative Orientation / Consciousness: confused and lethargic HEENT normocephalic, head/scalp atraumatic and hearing grossly normal bilaterally Eyes PERRL and EOMs intact bilaterally Neck no lymphadenopathy and supple Resp Resp Narrative: Diminished breath sounds throughout. Cardio regular rate and regular rhythm GI normal to inspection, nondistended, normoactive bowel sounds, soft to palpation, non-tender and non-distended GI Narrative: Morbidly obese. Extremity normal to inspection Skin Skin Narrative: Patient has no evidence of rash, abscess or jaundice. Neuro CN's II-XII intact bilaterally and moves all extremities Neuro Narrative: Patient is lethargic and confused on BiPAP. Sensorium / Orientation: awake, alert and oriented to person Speech: speech normal Psych affect normal Results Medical Records Data Attestation: I reviewed the patient's medical records Lab / Micro Data Attestation: I reviewed the patient's lab results. 06/24/24 03:14 06/24/24 03:14 Labs: Laboratory Results - last 24 hr 06/24/24 03:14: WBC 5.5, RBC 3.59 L, Hgb 11.2 L, Hct 33.1 L, MCV 92.2, MCH 31.2, MCHC 33.8, RDW Std Deviation 46.2 H, RDW Coeff of Eleanor 13.6, Plt Count 175, MPV 8.8, Immature Gran % (Auto) 0.400, Neut % (Auto) 59.2, Lymph % (Auto) 21.5, Bland % (Auto) 13.1 H, Eos % (Auto) 5.3 H, Baso % (Auto) 0.5, Absolute Neuts (auto) 3.3, Absolute Lymphs (auto) 1.18, Nucleated RBC % 0, Sodium 134 L, Potassium 3.1 L, Chloride 93 L, Carbon Dioxide 37.0 H, Anion Gap 5, BUN 13, Creatinine 0.93, Estim Creat Clear Calc 114.05, Est GFR (MDRD) Af Amer 108, Est GFR (MDRD) Non-Af 89, BUN/Creatinine Ratio 13.9, Glucose 113 H, Calcium 8.6, Troponin I High Sens 6 ABG Data ABG results: ABG 06/24/24 03:56 Specimen Type ART Sample Site L Radial pH 7.39 Bicarbonate Actual 40.2 H Total CO2 42 Base Excess 15 H O2 Saturation 94 L O2 % 2.0 ABG pCO2 66.6 H ABG pO2 77 Fei Test Positive O2 Delivery Device Cannula Vent Mode Not entered Imaging [facility] Imaging Services [address] [place] [address] Chest 1 View (Portable) MR#: [id number] Acct: [id number] Name: TEGAN MAC Rep #: [id number] : 1970 M 54 From: Jennifer Dowd MD PCP: Dr. Lex Jiang MD Status: REG ER Study: Chest 1 View (Portable) Date of Exam: 06/24/24 Exam# [id number] Ordering Dr: Jethro Wilder DO INDICATION: Dyspnea EXAMINATION/TECHNIQUE: X-RAY - XR Chest 1 View COMPARISON: CR Chest Jul 24 2022 3:22pm FINDINGS: LINES/DEVICES: None. LUNGS: No consolidation, edema or effusion. No pneumothorax. MEDIASTINUM AND CARDIOVASCULAR STRUCTURES: Cardiac silhouette not enlarged. Central airways and mediastinal contour are unremarkable. BONES AND SOFT TISSUES: Unremarkable. RAD/Chest 1 View (Portable) IMPRESSION: No radiographic evidence of acute cardiopulmonary disease. Electronically Signed: Jennifer Dowd MD at 6:29 EST , CC: Dr. Jethro Wilder DO; Dr. Lex Jiang MD ~ Hearing Aid Assembly Supervisor: Signed Assessment & Plan Assessment/Plan (1) Acute exacerbation of COPD with asthma: (2) Acute hypoxic on chronic hypercapnic respiratory failure: (3) Acute metabolic encephalopathy: (4) Nausea & vomiting: QUALIFIERS: Vomiting type: unspecified Qualified Code(s): R11.2 - Nausea with vomiting, unspecified (5) Gastroparesis: (6) Hypokalemia: (7) Schizoaffective disorder: QUALIFIERS: Schizoaffective disorder type: unspecified Qualified Code(s): F25.9 - Schizoaffective disorder, unspecified (8) Intermittent explosive disorder: (9) Anxiety: (10) Morbid obesity with BMI of 40.0-44.9, adult: PLAN: Plan 1. AE asthma/COPD with possible Aspiration Event in the setting of Nausea and Vomiting with brownish emesis - Admit to ICU given patient's medical complexity and severe acute illness. Continue IV Solu-Medrol and IV Levaquin begun in the ER. Start Flagyl IV to cover anaerobes associated with aspiration. Give normal saline with 20 meq KCl at 125 mL/h. Give nebulizers as needed. Gastroccult emesis and start Protonix 40 mg IV BID with BUN of 13 mg/dL present on admission arguing against upper GI bleeding. Give Tylenol [place] as needed for pain or fever. Check STAT CTA of Chest with IV contrast to evaluate for evidence of aspiration and possible PE with severe dyspnea and unremarkable CXR. 2. Acute Hypoxic and Hypercapnic Respiratory Failure requiring Airvo attributable to #1 - Wean Airvo as tolerated. 3. Acute Metabolic Encephalopathy arising from #1 & #2 - Continue supportive care as outlined and monitor for improvement. Check TSH, B12, folate and UDS to evaluate for potentially reversible causes of confusion. We will minimize RN DISCHARGE- active medications in an effort to allow sensorium to clear. 4. Hypokalemia of 3.1 mmol/L present on admission compounding #1 - #3 - Give supplemental KCl and then recheck level to ensure improvement. 5. Schizoaffective disorder complicated by intermittent explosive disorder and chronic severe anxiety; on iloperidone, escitalopram, quetiapine, trazodone, divalproex and as needed lorazepam adding to the medical complexity of #1 - #4 - Restart current regimen when patient is able to safely tolerate oral intake when Airvo can be weaned. Check valproic acid level. 6. Morbid Obesity; with a BMI of 40 this admission adding to the burden of disease outlined from #1 - #5 - Weight loss will be recommended when patient is more coherent. Check TSH. This complicates his case and may hamper recovery. 7. History of Gastroparesis; with cyclical vomiting plus GERD; on pantoprazole and famotidine with patient having informed the ER physician of recent nausea and vomiting adding to the already medical acuity - Patient will be continued on Protonix IV daily. Give IV Zofran as needed for nausea and vomiting. Give Phenergan IM as needed for breakthrough nausea and vomiting. Finally, patient is continuing to have nausea and vomiting in ER so we will place scopolamine patch to help control his severe symptoms. Check STAT CT scan of the abdomen and pelvis to evaluate for possible pathologic changes that would explain his worsening nausea and vomiting since one was not ordered in the ER. 8. Essential Hypertension; on amlodipine, hydrochlorothiazide, lisinopril and propranolol - Hold oral antihypertensives until patient's condition stabilizes. Give hydralazine IV as needed for systolic blood pressure greater than 160 mmHg. 9. History of movement disorder; on benztropine - Resume benztropine as previous when patient is able to tolerate oral intake safely. 10. History of adrenocortical insufficiency; on fludrocortisone and hydrocortisone - Hold oral fludrocortisone and hydrocortisone as patient is on IV Solu-Medrol at this time. 11. Chronic Anemia - Stable with a hemoglobin of 11.2 g/dL and MCV of 92.2 fL present on admission. 12. History of thrombocytopenia - Stable with platelet count of 175K present on admission. 13. Legally Blind - Noted. 14. Listed allergy to PCN - Noted. 15. Listed allergy to risperidone - Noted. 16. History of chronic anal fissure - Noted. 17. History of cellulitis - Noted. 18. DVT prophylaxis - SCD's only until Gastroccult confirmed negative for bleeding. Total time: Approximately (but not less than) 75 minutes. Charges/Coding Visit Charges Inpatient E&M: 95431 Init Hosp L3
--- NOTE | 2024-06-24 06:38 | CPS ---
Placed pt on bipap at this time. Once the BIPAP was on pt started to throw up. RT when took bipap off the pt. Rt cleaned pt up and told MD about pt throwing up.
--- NOTE | 2024-06-24 06:44 | CPS ---
increased pt to 6L NC from 4L NC
[2024-06-24] MEDS: MethylPREDNISolone 125 MG/2 ML Vial 60 MG IV ×2 (06:59→22:42)
[2024-06-24] MEDS: levoFLOXacin IV 750 MG/150 ML BAG 100 MG IV (07:02)
--- NOTE | 2024-06-24 07:35 | CT_ITS ---
STUDY: CT ABDOMEN AND PELVIS WITHOUT CONTRAST REASON FOR EXAM: Male, 54 years old. Intractable nausea and vomiting. RADIATION DOSAGE (If Supplied By Facility): CTDIvol = ( 24.18 ) mGy, DLP = ( 1498.21 ) mGycm TECHNIQUE: Transaxial images were obtained from the dome of the diaphragm to the symphysis pubis without oral contrast, and without intravenous contrast. Sagittal and coronal images were reconstructed. Individualized dose optimization techniques were used for this CT. COMPARISON: None. FINDINGS: Patchy bibasilar pulmonary infiltrates slightly worse at the right lung base. The visualized portions of the heart are within normal limits. Normal liver. Normal gallbladder and extrahepatic biliary system. Normal spleen. There is diffuse atrophy of the pancreas. Normal bilateral adrenal glands. Normal right kidney. Normal left kidney. There is a small hiatal hernia. Normal small intestine. Normal colon. The appendix is visualized and appears normal. There is scattered atherosclerotic calcification of the abdominal aorta, without a demonstrated aneurysm. Normal inferior vena cava. Normal retroperitoneum. The urinary bladder is distended. There is evidence of a 1.9 cm right sided bladder diverticulum at the base. Moderate-sized left inguinal hernia containing fat. There are degenerative changes of the visualized lumbar spine. There is straightening of the normal lumbar lordosis. CT/Abdomen/Pelvis without Cont IMPRESSION: Patchy bibasilar pulmonary infiltrates worse at the right lung base. Atrophy of the pancreas. Small hiatal hernia. Moderate-sized left inguinal hernia containing fat. Distention of the urinary bladder and right sided bladder diverticulum. Electronically Signed: Severiano Friedman MD at 8:55 EST ,
[2024-06-24] MEDS: Scopolamine 1mg/72hr Patch 1 PATCH TD (07:42)
--- NOTE | 2024-06-24 07:43 | CT_ITS ---
STUDY: CTA CHEST REASON FOR EXAM: Male, 54 years old. Severe Dyspnea and possible PE. RADIATION DOSAGE (If Supplied By Facility): CTDIvol = ( 20.96 ) mGy, DLP = ( 551.16 ) mGycm TECHNIQUE: The examination was performed with the intravenous administration of [id number] 100ML. Post-processing of the angiographic images was performed, with multiplanar reformation and 3D reconstruction. Individualized dose optimization techniques were used for this CT. COMPARISON: Comparison is made with prior chest radiograph dated June 24, 2024. FINDINGS: Normal enhancement of the main pulmonary artery and right and left pulmonary arteries. Normal enhancement of the bilateral peripheral pulmonary arteries. There is no demonstrated pulmonary embolism. Normal thoracic aorta and visualized great vessels. There is no demonstrated aortic dissection. Minimal coronary artery calcification. There is evidence of a subcarinal adenopathy. Normal hilar regions. Normal visualized trachea and bronchi. The lungs are well expanded. Patchy bibasilar infiltrates right greater than left. Patchy infiltrates in the superior segment of the lower lobes bilaterally. Normal pleura. Normal chest wall structures. There are degenerative changes of thoracic spine. Normal visualized upper abdomen. CT/CTA Chest W/WO Contrast IMPRESSION: Patchy bibasilar pulmonary infiltrates right greater than left with patchy infiltrates in the superior segments of both lower lobes. Electronically Signed: Severiano Friedman MD at 8:50 EST ,
[2024-06-24] MEDS: Ondansetron 4 MG/2 ML Vial IV (07:52)
[2024-06-24 07:54] LABS: Allen Test Positive; Base Excess 15 mmol/L (-2 to +2); Bicarbonate 39.8 mmol/L (22-26); Blood Gas Specimen Type ART; Mode Not entered; O2 Delivery Device Cannula; PO2 72 mmHG (75-100); SITE L Radial; SO2 93 % (95-99); Total Carbon Dioxide 42 mmol/L; pCO2 66.2 mmHg (35-45); pH 7.39 (7.35-7.45)
[2024-06-24] MEDS: metroNIDAZOLE 500 MG/100 ML BAG 100 MG IV ×3 (08:59→22:37)
--- NOTE | 2024-06-24 09:45 | CPS ---
decreased to 4L NC at this time
[2024-06-24 10:23] LABS: D-Dimer Quantitative (DVT/PE) 1.76 FEU/ug/m (0.27-0.49)
[2024-06-24 10:42] LABS: Valproic Acid (Depakene) Level 50 ug/mL (50-100)
[2024-06-24] MEDS: MethylPREDNISolone 125 MG/2 ML Vial IV (15:43)
[2024-06-24] MEDS: Pantoprazole Sodium 40 MG in 0.9% Normal Saline (100mL MB+) 100 ML 330 MG IV ×2 (15:44→22:36)
--- NOTE | 2024-06-24 16:01 | NURSING ---
Pt states that before admission into the hospital, he was having thoughts of killing himself. He states, I do not want to kill myself in the hospital. Pt states that he does not have active thoughts about killing himself as of this moment. Seo Consultant Eliane notified as well as Dr. Roche.
[2024-06-24 16:21] LABS: Vitamin B12 607 pg/mL (211-911)
[2024-06-24] MEDS: KCL 20MEQ in 0.9% NS 20 MEQ/1,000 ML IV.SOLN. 125 MEQ IV (16:27)
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
[2024-06-24] MEDS: 0.9% Saline Lock 10 ML Syringe IV (16:29)
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
[2024-06-25] VITALS (7 sets, daily range): BP systolic 128–170; BP diastolic 66–96; PULSE 97–107; RESP 17–18; TEMP 36.8–37.9; O2SAT 92–94; BMI 38.1
[2024-06-25 06:04] LABS: Absolute Lymphocyte Count 0.26 X10^3/uL (0.83-4.51); Absolute Neutrophil Count 9.5 X10^3/uL (2.0-7.7); Basophil# 0.01 X10^3/uL; Basophil% 0.1 % (0-1); Hematocrit 36.3 % (40-54); Lymphocyte # 0.26 X10^3/ul (0.83-4.51); Lymphocyte % 2.6 % (19-41); Mean Corp Hgb Conc 33.1 g/dL (32-36); Mean Corpuscular Hgb 31.1 pg (27.0-32.0); Monocyte# 0.12 X10^3/uL; Monocyte% 1.2 % (0-10); NRBC Flagged by Analyzer 0 % (0-5); Neutrophil # 9.47 X10^3/uL (2.7-7.7); Neutrophil % 95.5 % (47-70); POSITIVE DIFFERENTIAL YES; Platelet Count 192 K/mm3 (150-450); RBC Distribution Width SD 47.5 fl (35.1-43.9); Red Blood Count 3.86 M/mm3 (4.6-6.2); White Blood Count 9.9 K/mm3 (4.4-11.0)
[2024-06-25] MEDS: metroNIDAZOLE 500 MG/100 ML BAG 100 MG IV ×2 (06:34→15:09)
[2024-06-25] MEDS: levoFLOXacin IV 750 MG/150 ML BAG 100 MG IV (06:42)
[2024-06-25 06:49] LABS: ALB/GLOB Ratio 0.8 RATIO (0.9-2.4); AST(SGOT) 10 U/L (15-37); Alanine Aminotransfer ALT/SGPT 12 U/L (16-61); Albumin, Serum 2.9 g/dL (3.2-5.0); Alkaline Phosphatase 74 U/L (45-117); Anion Gap 5 (5-15); BUN 20 mg/dL (7-18); Calcium,Total 8.7 mg/dL (8.5-10.1); Chloride 102 mmol/L (98-107); Creatinine, Serum 0.95 mg/dL (0.70-1.30); EST Glomerular Filtration Rate 88 mL/min (>60); Est Glom Filt Rate - Afr Amer 106 mL/min (>60); Estimated Creatinine Clearance 108.78 ml/min; Globulin 3.8 g/dL (2.2-4.2); Glucose 162 mg/dL (74-106); Phosphorus 2.1 mg/dL (2.5-4.9); Potassium 3.6 mmol/L (3.5-5.1); Protein, Total 6.7 g/dL (6.4-8.2); Sodium Level 142 mmol/L (136-145)
[2024-06-25] MEDS: Pantoprazole Sodium 40 MG in 0.9% Normal Saline (100mL MB+) 100 ML 330 MG IV (08:47)
[2024-06-25] MEDS: MethylPREDNISolone 125 MG/2 ML Vial 60 MG IV ×2 (08:58→20:59)
--- NOTE | 2024-06-25 10:29 | CASEMGMT ---
Pts sister/legal guardian (Courtney) wishes for pt to return to [facility] when ready for discharge. Updates faxed to [facility]. SW updated. Jeannette Katz DC Planning Asst.
--- NOTE | 2024-06-25 15:38 | CHAPLAIN ---
Type of Pastoral Visit _x__ Initial Visit ___ Follow-up Visit ___ On-call Visit ___ General Patient Visit ___ Spiritual Assessment ___ Family Conference ___ Bereavement ___ Rapid Response ___ Code Blue ___ Other (describe below) Pastoral Care Referral From ___ Patient ___ Family ___ Nurse ___ Physician ___ Bedspread Inspector ___ Dike Supervisor _x__ Other (describe below) Sacrament/Intervention _x__ Active listening ___ Anointing ___ Jewish ___ Bereavement ___ Communion ___ Jennifer exploration ___ ___ Life review _x__ Prayer ___ Reconciliation ___ Sacrament of Sick _x__ Supportive presence ___ Wedding ___ Other (describe below) Pastoral Comments patient has limitations with mental status; pt is very talkative and goes on and on about many things that were difficult to put together except that he was well versed in cartoon and old TV show characters; pt had thoughts about people and acceptance of others that were well expressed; pt was offered presence, time to talk, questioned about his feelings of being in the hospital, and a desire for a prayer
--- NOTE | 2024-06-25 18:37 | PN.HOSP_ITS ---
Reason for Visit Reason for Visit: Diagnoses Morbid (severe) obesity due to excess calories (06/24/24) Hypokalemia (06/24/24) Schizoaffective disorder, unspecified (06/24/24) Anxiety disorder, unspecified (06/24/24) Intermittent explosive disorder (06/24/24) Metabolic encephalopathy (06/24/24) Chronic obstructive pulmonary disease with (acute) exacerbation (06/24/24) Acute respiratory failure with hypoxia (06/24/24) Chronic respiratory failure with hypercapnia (06/24/24) Gastroparesis (06/24/24) Nausea with vomiting, unspecified (06/24/24) Body mass index [BMI] 40.0-44.9, adult (06/24/24) Subjective Subjective Patient was seen and examined today he does not appear to be in any distress, he is very talkative, he has obvious cognitive impairment. Patient was placed on a diet today, he is currently requiring 2 L of oxygen Objective Data Objective Data Vital Signs: Vital Signs Temp Pulse Resp BP Pulse Ox O2 Del Method O2 Flow Rate 99.3 F H 104 H 18 170/86 H 94 Nasal Cannula 2 06/25/24 17:00 06/25/24 17:00 06/25/24 17:00 06/25/24 17:00 06/25/24 17:00 06/25/24 17:00 06/25/24 17:00 FiO2 40 06/24/24 06:37 Oxygen Flow Rate (L/min) 2 Oxygen Delivery Method Nasal Cannula Weight: 113.7 kg Body Mass Index (BMI) 38.1 Intake & Output: Intake and Output for Last 24 Hours 06/23/24 06/24/24 06/25/24 23:59 23:59 23:59 Intake Total 1270 / 1270 1441.67 / 1441.67 Output Total 300 / 300 1400 / 1400 Balance 970 / 970 41.67 / 41.67 Lab / Micro Data 06/25/24 05:17 06/25/24 05:17 Labs: Laboratory Results - last 24 hr 06/25/24 05:17: WBC 9.9, RBC 3.86 L, Hgb 12.0 L, Hct 36.3 L, MCV 94.0, MCH 31.1, MCHC 33.1, RDW Std Deviation 47.5 H, RDW Coeff of Eleanor 14.0, Plt Count 192, MPV 9.0, Immature Gran % (Auto) 0.600, Neut % (Auto) 95.5 H, Lymph % (Auto) 2.6 L, Boundary % (Auto) 1.2, Eos % (Auto) 0.0, Baso % (Auto) 0.1, Absolute Neuts (auto) 9.5 H, Absolute Lymphs (auto) 0.26 L, Nucleated RBC % 0, Sodium 142, Potassium 3.6, Chloride 102, Carbon Dioxide 34.0 H, Anion Gap 5, BUN 20 H, Creatinine 0.95, Estim Creat Clear Calc 108.78, Est GFR (MDRD) Af Amer 106, Est GFR (MDRD) Non-Af 88, BUN/Creatinine Ratio 21.0 H, Glucose 162 H, Calcium 8.7, Phosphorus 2.1 L, Magnesium 2.0, Total Bilirubin 0.40, AST 10 L, ALT 12 L, Alkaline Phosphatase 74, Total Protein 6.7, Albumin 2.9 L, Globulin 3.8, Albumin/Globulin Ratio 0.8 L Micro: Microbiology 06/24/24 09:49 Mucosa - Nose Respiratory Panel (PCR) - Final Physical Exam Const alert and no apparent distress Constitutional Narrative: Patient has cognitive impairment, he is able to answer simple questions, patient is blood General Appearance: cooperative, well kempt and well developed Orientation / Consciousness: awake, oriented to person, oriented to place and oriented to time HEENT normocephalic and moist oral mucous membranes Eyes Eyes Narrative: Patient has blindness Neck supple, no JVD, thyroid normal and no carotid bruits General: trachea midline Resp normal respiratory effort, no retractions, no use of accessory muscles and clear to auscultation bilaterally Auscultation: Negative for rales, rhonchi or wheezes Cardio regular rate, regular rhythm, S1 normal heart sound, S2 normal heart sound, no murmurs, no rub and no gallops GI normal to inspection, nondistended, normoactive bowel sounds, soft to palpation, non-tender and non-distended Extremity normal to inspection and no clubbing, cyanosis or edema Skin no rashes or lesions noted General Skin Exam: no breakdown Neuro CN's II-XII intact bilaterally, no focal motor deficits and no sensory deficits noted Neuro Narrative: Patient has cognitive impairment Sensorium / Orientation: awake and alert Speech: speech normal Psych Psych Narrative: Patient exhibits cognitive impairment but is pleasant and not agitated Assessment & Plan Assessment/Plan (1) Acute exacerbation of COPD with asthma: PLAN: Plan 1. Acute exacerbation of COPD-patient is currently on 2 L of oxygen via nasal cannula, he is receiving aerosol treatments and IV Solu-Medrol. #2 possible pneumonia-patient remains on Levaquin #3 schizophrenia-patient is on an abundance of psychiatric medications, he is on Fanapt which is not available here. I have written for the rest of his psychiatric medications #4 acute combined respiratory failure-it is unknown whether the patient is on oxygen at his psychiatric custodial, patient is currently on 2 L and appears comfortable When patient is medically stable he can return back to his psychiatric custodial without preapproval Total clinical time spent by myself addressing the patient's medical issues, reviewing all of his data, and collaborating with patient's care team: 35 minutes Charges/Coding Visit Charges Inpatient E&M: 74830 Subs Hosp L2
[2024-06-25] MEDS: Divalproex Sodium 125 MG SPRINKLE 250 MG PO (20:52)
[2024-06-25] MEDS: Ferrous Sulfate 325 MG Tablet PO (20:54)
[2024-06-25] MEDS: Escitalopram Oxalate 10 MG Tablet PO (20:54)
[2024-06-25] MEDS: QUEtiapine 100 MG Tablet 150 MG PO (20:55)
[2024-06-25] MEDS: LORazepam 1 MG Tablet 2 MG PO (20:58)
[2024-06-25] MEDS: Benztropine 2 MG Tablet 1 MG PO (20:58)
[2024-06-26] VITALS (7 sets, daily range): BP systolic 166–174; BP diastolic 74–90; PULSE 87–92; RESP 18; TEMP 36.8–37.2; O2SAT 93–96; BMI 38.0
[2024-06-26] MEDS: Divalproex Sodium 125 MG SPRINKLE 250 MG PO ×2 (03:08→10:26)
[2024-06-26] MEDS: hydrALAZINE 20 MG/ML Vial 5 MG IV (05:52)
[2024-06-26] MEDS: 0.9% Saline Lock 10 ML Syringe IV (05:54)
[2024-06-26] MEDS: levoFLOXacin IV 750 MG/150 ML BAG 100 MG IV (05:54)
[2024-06-26] MEDS: LORazepam 1 MG Tablet 2 MG PO ×2 (05:56→14:04)
--- NOTE | 2024-06-26 08:06 | PN.HOSP_ITS ---
Reason for Visit Reason for Visit: Diagnoses Morbid (severe) obesity due to excess calories (06/24/24) Hypokalemia (06/24/24) Schizoaffective disorder, unspecified (06/24/24) Anxiety disorder, unspecified (06/24/24) Intermittent explosive disorder (06/24/24) Metabolic encephalopathy (06/24/24) Chronic obstructive pulmonary disease with (acute) exacerbation (06/24/24) Acute respiratory failure with hypoxia (06/24/24) Chronic respiratory failure with hypercapnia (06/24/24) Gastroparesis (06/24/24) Nausea with vomiting, unspecified (06/24/24) Body mass index [BMI] 40.0-44.9, adult (06/24/24) Subjective Subjective Feels well. No events overnight. Objective Data Objective Data Vital Signs: Vital Signs Temp Pulse Resp BP Pulse Ox O2 Del Method O2 Flow Rate 37.2 C 87 18 174/83 H 94 Nasal Cannula 2 06/26/24 05:47 06/26/24 05:52 06/26/24 05:47 06/26/24 05:52 06/26/24 05:47 06/26/24 05:47 06/26/24 05:47 FiO2 40 06/24/24 06:37 Oxygen Flow Rate (L/min) 2 Oxygen Delivery Method Nasal Cannula Weight: 113.8 kg Body Mass Index (BMI) 38.0 Intake & Output: Intake and Output for Last 24 Hours 06/24/24 06/25/24 06/26/24 23:59 23:59 23:59 Intake Total 1270 / 1270 1441.67 / 1441.67 300 / 300 Output Total 300 / 300 1800 / 1800 300 / 300 Balance 970 / 970 -358.33 / -358.33 0 / 0 Lab / Micro Data 06/25/24 05:17 06/25/24 05:17 Micro: Microbiology 06/24/24 09:49 Mucosa - Nose Respiratory Panel (PCR) - Final Physical Exam Const alert and no apparent distress HEENT head/scalp atraumatic and moist oral mucous membranes Resp normal respiratory effort, no retractions, no use of accessory muscles and clear to auscultation bilaterally Cardio regular rate, regular rhythm, S1 normal heart sound and S2 normal heart sound GI normal to inspection, nondistended, normoactive bowel sounds and soft to palpation Neuro Sensorium / Orientation: awake and alert Assessment & Plan Assessment/Plan (1) Acute exacerbation of COPD with asthma: PLAN: Plan Acute hypoxic respiratory failure * POA. Required Airvo. Oxygen able to be weaned down now to room air. * 2/2 AECOPD and pneumonia Acute exacerbation of COPD * patient is currently on 2 L of oxygen via nasal cannula * continue BDs and methylpred * will initiate hydrocortisone taper Suspected pneumococcal pneumonia * Bibasilar patchy infiltrates * continue levofloxacin. * BCx, respiratory panel negative. * Check COVID 19, sputum for strep and legionella. Schizophrenia * continue divalproex, escitalopram, lorazepam, quetiapine * resume Fanapt upon discharge Adrenal insufficiency * on hydrocortisone at baseline. Will hold while on methylprednisone. Hydrocortisone taper upon discharge to baseline. VTE prophylaxis: SCDs Discharge back to [facility].
[2024-06-26] MEDS: Lisinopril 20 MG Tablet PO (10:27)
[2024-06-26] MEDS: traZODone 100 MG Tablet PO (10:27)
[2024-06-26] MEDS: Ferrous Sulfate 325 MG Tablet PO (10:27)
[2024-06-26] MEDS: Pantoprazole Sodium 40 MG Tablet PO (10:27)
[2024-06-26] MEDS: QUEtiapine 100 MG Tablet 150 MG PO (10:28)
[2024-06-26] MEDS: Hydrocortisone 10 MG Tablet 15 MG PO (10:28)
[2024-06-26] MEDS: Benztropine 2 MG Tablet 1 MG PO (10:29)
[2024-06-26] MEDS: Propranolol LA 80 MG Capsule PO (10:29)
[2024-06-26] MEDS: Fludrocortisone Acetate 0.1 MG Tablet PO (10:30)
[2024-06-26] MEDS: amLODIPine 10 MG Tablet PO (10:30)
[2024-06-26] MEDS: Escitalopram Oxalate 10 MG Tablet PO (10:30)
[2024-06-26] MEDS: MethylPREDNISolone 125 MG/2 ML Vial 60 MG IV (10:31)
[2024-06-26] MEDS: Aspirin E.C. 81 MG Tablet PO (10:43)
[2024-06-26] MEDS: hydroCHLOROthiazide 25 MG Tablet PO (11:40)
[2024-06-26] MEDS: Folic Acid 1 MG Tablet 0.5 MG PO (11:41)
--- NOTE | 2024-06-26 12:00 | TREXTCAR_ITS ---
Diet Diet Order/Speech Therapy: 06/25/24 15:45 Diet: Regular - General Routine Orders/Code Status Code Status: Full Code DC O2, CPAP, BIPAP needs Home O2 Discharge instructions: No Wound(s) R duke: Wound Type: scabs umbilicus: Wound Type: scab right forearm: Wound Type: bruise Therapies Weight Bearing: Full weight bearing Physical Therapy: Eval and Treat Occupational Therapy: Eval and Treat Problem/Diagnosis (1) Acute exacerbation of COPD with asthma: Status: Chronic Code(s): J44.1 - Chronic obstructive pulmonary disease with (acute) exacerbation Plan Acute hypoxic respiratory failure * POA. Required Airvo. Oxygen able to be weaned down now to room air. * 2/2 AECOPD and pneumonia Acute exacerbation of COPD * patient is currently on 2 L of oxygen via nasal cannula * continue BDs and methylpred * will initiate hydrocortisone taper Suspected pneumococcal pneumonia * Bibasilar patchy infiltrates * continue levofloxacin. * BCx, respiratory panel negative. * Check COVID 19, sputum for strep and legionella. Schizophrenia * continue divalproex, escitalopram, lorazepam, quetiapine * resume Fanapt upon discharge Adrenal insufficiency * on hydrocortisone at baseline. Will hold while on methylprednisone. Hydrocortisone taper upon discharge to baseline. VTE prophylaxis: SCDs Discharge back to [facility]. Allergies/Procedures Done in Hospital Allergies acetic acid Allergy (Verified 06/24/24 02:56) PT UNABLE TO RESPOND-NEEDS F/U nut - unspecified (nuts) Allergy (Verified 06/24/24 02:56) PT UNABLE TO RESPOND-NEEDS F/U Penicillins Allergy (Verified 06/24/24 02:56) PT UNABLE TO RESPOND-NEEDS F/U risperidone Allergy (Verified 06/24/24 02:56) PT UNABLE TO RESPOND-NEEDS F/U Procedures: None Type of Care/Length of Stay Estimated LOS: More Than 30 Days Type of Care Needed: Intermediate Rehab Potential: Fair Prognosis: Good Additional Orders/Day of Discharge Day of Discharge: 06/26/24 Dietary and Speech Recommendations Dietitian Recommendations/Changes: As medically able, rec FRANCISCO JAVIER to liberal Regular diet Will monitor need for ONS pending po intake as established. Discharge Plan Admission Admit Date/Time: 06/24/24 06:59 Primary Reason for Your Visit: pnemonia Attending Provider: Jethro Greer Primary Care Provider: Lex Jiang Consulting Providers: Cayetano Lainez; Ghanshyam Roche Discharge Orders/Prescriptions Prescriptions: New doxycycline monohydrate 100 mg capsule 100 mg PO BID Qty: 10 0RF hydrocortisone 20 mg tablet 20 mg PO BID Qty: 60 0RF Rx Instructions: 4 tabs BID for 3 days, then 3 tabs BID for 3 days, then 2 tabs BID for 3 days, then 1 tab BID for 3 days. Continued albuterol sulfate 0.63 mg/3 mL solution for nebulization 0.63 mg inhalation Q4H PRN (Reason: Shortness Of Breath) lorazepam [Ativan] 2 mg/mL Solution 2 mg IM Q6H PRN (Reason: AGITSTION) cyanocobalamin (vitamin B-12) 1,000 mcg Tablet 1,000 mcg PO WE famotidine [Pepcid] 20 mg Tablet 20 mg PO DAILY trazodone 100 mg Tablet 100 mg PO DAILY lorazepam 2 mg Tablet 2 mg PO TID lorazepam [Ativan] 2 mg Tablet 2 mg PO Q6H PRN (Reason: Agitation) amlodipine [Norvasc] 10 mg Tablet 10 mg PO DAILY ferrous sulfate [FeroSul] 325 mg (65 mg iron) Tablet 325 mg PO BID benztropine 1 mg Tablet 1 mg PO BID hydrochlorothiazide 25 mg Tablet 25 mg PO DAILY fluticasone propionate [Flonase Allergy Relief] 50 mcg/actuation Elizabeth,Suspension 1 spray INTRANASAL DAILY fludrocortisone 0.1 mg Tablet 0.1 mg PO DAILY escitalopram oxalate [Lexapro] 10 mg Tablet 10 mg PO BID quetiapine [Seroquel XR] 300 mg Tablet Extended Release 24 Hr 600 mg PO QHS Fanapt 6 mg tablet 6 mg PO DAILY Fanapt 12 mg tablet 12 mg PO DAILY loperamide 2 mg Capsule 2 mg PO Q4H PRN (Reason: STOOL) aspirin 81 mg Tablet,Delayed Release (Dr/Ec) 81 mg PO DAILY magnesium hydroxide [Milk of Magnesia] 400 mg/5 mL Suspension 30 ml PO Q24H PRN (Reason: Constipation) calcium carbonate 500 mg calcium (1,250 mg) Tablet 500 mg PO BID bisacodyl [Dulcolax (bisacodyl)] 10 mg Suppository 10 mg ID DAILY PRN (Reason: Constipation) propranolol 80 mg capsule,extended release 24 hr 80 mg PO DAILY alum-mag hydroxide-simeth 200-200-20 mg/5 mL Suspension 30 ml PO Q4H PRN (Reason: Heartburn) cholecalciferol (vitamin D3) [Vitamin D3] 50 mcg (2,000 unit) Tablet 50 mcg PO DAILY guaifenesin [Mucus Relief ER] 1,200 mg tablet extended release 12hr 1,200 mg PO BID PRN (Reason: MUCUS RELIEF) folic acid 400 mcg tablet 400 mcg PO DAILY potassium chloride 10 mEq capsule, extended release 30 meq PO DAILY lisinopril 20 mg tablet 20 mg PO DAILY Probiotic Blend 2 billion cell-50 mg capsule 1 cap PO DAILY Rx Instructions: give with meal/snack pantoprazole 40 mg tablet,delayed release (DR/EC) 40 mg PO DAILY ergocalciferol (vitamin D2) 50,000 unit tablet 50,000 unit PO TH divalproex 125 mg capsule, delayed rel sprinkle 250 mg PO Q8H Held hydrocortisone 5 mg tablet 15 mg PO DAILY Hold Instructions: Resume on 07/05/24. hydrocortisone 10 mg tablet 10 mg PO DAILY Hold Instructions: Resume on 07/05/24. Referrals / Follow Up: Lex Jiang MD [Primary Care Provider] - Within 2 Weeks Lex Jiang [[facility]] - Disposition Disposition (needs filled in before D/C Order can be placed): NonSkilled NH/Intermed Care
--- NOTE | 2024-06-26 12:20 | DS.PCM_ITS ---
Providers Date of Admission: 06/24/24 Primary Care Physician: Dr. Lex Jiang MD Reason For Visit: AE COPD WITH RESPIRATORY FAILURE ON BIPAP Diagnosis Discharge Diagnosis (1) Acute exacerbation of COPD with asthma: Status: Chronic Code(s): J44.1 - Chronic obstructive pulmonary disease with (acute) exacerbation Plan Acute hypoxic respiratory failure * POA. Required Airvo. Oxygen able to be weaned down now to room air. * 2/2 AECOPD and pneumonia Acute exacerbation of COPD * patient is currently on 2 L of oxygen via nasal cannula * continue BDs and methylpred * will initiate hydrocortisone taper Suspected pneumococcal pneumonia * Bibasilar patchy infiltrates * Patient on levofloxacin here. Given potential for interactions with his psychiatric medications will discharge him with doxycycline (patient has a penicillin allergy) * BCx, respiratory panel negative. * COVID 19, sputum for strep and legionella negative Schizophrenia * continue divalproex, escitalopram, lorazepam, quetiapine * resume Fanapt upon discharge Adrenal insufficiency * on hydrocortisone at baseline. Will hold while on methylprednisone. Hydrocortisone taper upon discharge to baseline. VTE prophylaxis: SCDs Discharge back to detention Medications at Discharge Home Medications albuterol sulfate 0.63 mg/3 mL solution for nebulization 0.63 mg inhalation Q4H PRN Shortness Of Breath 06/04/22 amlodipine 10 mg tablet (Norvasc) 10 mg PO DAILY BLOOD PRESSURE 06/04/22 benztropine 1 mg tablet 1 mg PO BID 06/04/22 cyanocobalamin (vitamin B-12) 1,000 mcg tablet 1,000 mcg PO WE SUPPLEMENT 06/04/22 escitalopram oxalate 10 mg tablet (Lexapro) 10 mg PO BID MENTAL HEALTH 06/04/22 famotidine 20 mg tablet (Pepcid) 20 mg PO DAILY ACID REFLUX 06/04/22 ferrous sulfate 325 mg (65 mg iron) tablet (FeroSul) 325 mg PO BID SUPPLEMENT 06/04/22 fludrocortisone 0.1 mg tablet 0.1 mg PO DAILY 06/04/22 fluticasone propionate 50 mcg/actuation nasal spray,suspension (Flonase Allergy Relief) 1 spray intranasal DAILY ALLERGIES 06/04/22 hydrochlorothiazide 25 mg tablet 25 mg PO DAILY BLOOD PRESSURE 06/04/22 iloperidone 12 mg tablet (Fanapt) 12 mg PO DAILY MENTAL HEALTH 06/04/22 iloperidone 6 mg tablet (Fanapt) 6 mg PO DAILY MENTAL HEALTH 06/04/22 lorazepam 2 mg tablet 2 mg PO TID AGITATION 06/04/22 lorazepam 2 mg tablet (Ativan) 2 mg PO Q6H PRN Agitation 06/04/22 lorazepam 2 mg/mL injection solution (Ativan) 2 mg IM Q6H PRN AGITSTION 06/04/22 quetiapine 300 mg tablet,extended release 24 hr (Seroquel XR) 600 mg PO QHS MENTAL HEALTH 06/04/22 trazodone 100 mg tablet 100 mg PO DAILY MENTAL HEALTH 06/04/22 aluminum-mag hydroxide-simethicone 200 mg-200 mg-20 mg/5 mL oral susp 30 ml PO Q4H PRN Heartburn 07/24/22 aspirin 81 mg tablet,delayed release 81 mg PO DAILY HEART HEALTH 07/24/22 bisacodyl 10 mg rectal suppository (Dulcolax (bisacodyl)) 10 mg VT DAILY PRN Constipation 07/24/22 calcium carbonate 500 mg PO BID SUPPLEMENT 07/24/22 cholecalciferol (vitamin D3) 50 mcg (2,000 unit) tablet (Vitamin D3) 50 mcg PO DAILY SUPPLEMENT 07/24/22 guaifenesin 1,200 mg tablet, extended release 12 hr (Mucus Relief ER) 1,200 mg PO BID PRN MUCUS RELIEF 07/24/22 loperamide 2 mg capsule 2 mg PO Q4H PRN STOOL 07/24/22 magnesium hydroxide 400 mg/5 mL oral suspension (Milk of Magnesia) 30 ml PO Q24H PRN Constipation 07/24/22 propranolol 80 mg capsule,24 hr,extended release 80 mg PO DAILY BLOOD PRESSURE 07/24/22 L.acidophil-L.casei-B.bifid-B.longum-FOS 2 billion cell-50 mg capsule (Probiotic Blend) 1 cap PO DAILY 06/24/24 divalproex 125 mg capsule,delayed release sprinkle 250 mg PO Q8H 06/24/24 ergocalciferol (vitamin D2) 50,000 unit tablet 50,000 unit PO TH 06/24/24 folic acid 400 mcg tablet 400 mcg PO DAILY 06/24/24 hydrocortisone 10 mg tablet 10 mg PO DAILY 06/24/24 hydrocortisone 5 mg tablet 15 mg PO DAILY 06/24/24 lisinopril 20 mg tablet 20 mg PO DAILY 06/24/24 pantoprazole 40 mg tablet,delayed release 40 mg PO DAILY 06/24/24 potassium chloride 10 mEq capsule,extended release 30 meq PO DAILY 06/24/24 doxycycline monohydrate 100 mg capsule 100 mg PO BID #10 caps 06/26/24 hydrocortisone 20 mg tablet 20 mg PO BID #60 tabs 06/26/24 Hospital Course Operations None Procedures None Summary of Care Provided Hospital Course: Greater than 35 minutes on discharge The patient presents with a respiratory failure due to pneumonia and COPD exacerbation. Patient underwent infectious workup including viral studies that were negative. Patient had bibasilar infiltrates. Patient was started on levofloxacin. I am choosing not to continue with that given potential for interactions with his psychiatric medications and instead will have him on doxycycline. Patient was put on methylprednisolone for his COPD. I will discontinue that and have him on a taper of hydrocortisone. Patient does have adrenal insufficiency which she takes hydrocortisone chronically. Will have him taper him down to his home dosing. Patient's oxygenation has greatly improved. He was on Airvo when he initially presented but has since improved down to room air. Weight / BMI Weight Weight: 113.8 kg Body Mass Index (BMI) 38.0 ABG / Lab / Microbiology Data 06/25/24 05:17 06/25/24 05:17 Microbiology: Microbiology 06/24/24 06:50 Blood Culture (Wb) - Right Hand Blood Culture - Preliminary No growth in 48 hours. 06/24/24 06:30 Blood Culture (Wb) - Right Hand Blood Culture - Preliminary No growth in 48 hours. 06/26/24 07:10 Urine, Clean Catch Legionella Antigen - Final 06/26/24 07:10 Urine, Clean Catch Streptococcus pneumoniae Antigen (M - Final 06/26/24 08:15 Nasal Secretion SARS-CoV-2 Antigen (Rapid) - Final 06/24/24 09:49 Mucosa - Nose Respiratory Panel (PCR) - Final D/C Instructions Discharge Diet: No restrictions DC O2, CPAP, BIPAP Needs PSN CPAP & BiPAP: BiPAP & CPAP Settings per PSN Mode BiPAP 06/24/24 06:37 Bipap Delivery Device Face Mask 06/24/24 06:37 BiPAP Inspiratory Pressure 12 06/24/24 06:37 BiPAP Expiratory Pressure 8 06/24/24 06:37 BiPAP Rate 12 06/24/24 06:37 Fraction of Inspired Oxygen ( 40 06/24/24 06:37 FIO2) Home O2 Discharge instructions: No Meaningful Use Info Meaningful Use Meaningful Use Diagnoses (Choose all that apply): None applicable Ischemic Stroke Statin Dosing Therapy Reference: STATIN DOSE THERAPY REFERENCE: * Patients > 75 years receive moderate or high dose statin therapy. * Patients 75 years or YOUNGER should receive HIGH intensity statin dose unless contraindicated. You will be required to document reason for non-treatment if statin daily dose does not meet guidelines. HIGH DOSE STATIN THERAPY DAILY Atorvastatin > than or = to 40 mg Rosuvastatin > than or = to 20 mg Amlodipine + Atorvastatin > than or = to 2.5/40 mg Ezetimibe + Simvastatin 10/80 mg Simvastatin 80mg Discharge Plan Admission Admit Date/Time: 06/24/24 06:59 Primary Reason for Your Visit: pnemonia Attending Provider: Jethro Greer Primary Care Provider: Lex Jiang Consulting Providers: Cayetano Lainez; Ghanshyam Roche Discharge Orders/Prescriptions Prescriptions: New doxycycline monohydrate 100 mg capsule 100 mg PO BID Qty: 10 0RF hydrocortisone 20 mg tablet 20 mg PO BID Qty: 60 0RF Rx Instructions: 4 tabs BID for 3 days, then 3 tabs BID for 3 days, then 2 tabs BID for 3 days, then 1 tab BID for 3 days. Continued albuterol sulfate 0.63 mg/3 mL solution for nebulization 0.63 mg inhalation Q4H PRN (Reason: Shortness Of Breath) lorazepam [Ativan] 2 mg/mL Solution 2 mg IM Q6H PRN (Reason: AGITSTION) cyanocobalamin (vitamin B-12) 1,000 mcg Tablet 1,000 mcg PO WE famotidine [Pepcid] 20 mg Tablet 20 mg PO DAILY trazodone 100 mg Tablet 100 mg PO DAILY lorazepam 2 mg Tablet 2 mg PO TID lorazepam [Ativan] 2 mg Tablet 2 mg PO Q6H PRN (Reason: Agitation) amlodipine [Norvasc] 10 mg Tablet 10 mg PO DAILY ferrous sulfate [FeroSul] 325 mg (65 mg iron) Tablet 325 mg PO BID benztropine 1 mg Tablet 1 mg PO BID hydrochlorothiazide 25 mg Tablet 25 mg PO DAILY fluticasone propionate [Flonase Allergy Relief] 50 mcg/actuation Ovalo,Suspension 1 spray INTRANASAL DAILY fludrocortisone 0.1 mg Tablet 0.1 mg PO DAILY escitalopram oxalate [Lexapro] 10 mg Tablet 10 mg PO BID quetiapine [Seroquel XR] 300 mg Tablet Extended Release 24 Hr 600 mg PO QHS Fanapt 6 mg tablet 6 mg PO DAILY Fanapt 12 mg tablet 12 mg PO DAILY loperamide 2 mg Capsule 2 mg PO Q4H PRN (Reason: STOOL) aspirin 81 mg Tablet,Delayed Release (Dr/Ec) 81 mg PO DAILY magnesium hydroxide [Milk of Magnesia] 400 mg/5 mL Suspension 30 ml PO Q24H PRN (Reason: Constipation) calcium carbonate 500 mg calcium (1,250 mg) Tablet 500 mg PO BID bisacodyl [Dulcolax (bisacodyl)] 10 mg Suppository 10 mg VT DAILY PRN (Reason: Constipation) propranolol 80 mg capsule,extended release 24 hr 80 mg PO DAILY alum-mag hydroxide-simeth 200-200-20 mg/5 mL Suspension 30 ml PO Q4H PRN (Reason: Heartburn) cholecalciferol (vitamin D3) [Vitamin D3] 50 mcg (2,000 unit) Tablet 50 mcg PO DAILY guaifenesin [Mucus Relief ER] 1,200 mg tablet extended release 12hr 1,200 mg PO BID PRN (Reason: MUCUS RELIEF) folic acid 400 mcg tablet 400 mcg PO DAILY potassium chloride 10 mEq capsule, extended release 30 meq PO DAILY lisinopril 20 mg tablet 20 mg PO DAILY Probiotic Blend 2 billion cell-50 mg capsule 1 cap PO DAILY Rx Instructions: give with meal/snack pantoprazole 40 mg tablet,delayed release (DR/EC) 40 mg PO DAILY ergocalciferol (vitamin D2) 50,000 unit tablet 50,000 unit PO TH divalproex 125 mg capsule, delayed rel sprinkle 250 mg PO Q8H Held hydrocortisone 5 mg tablet 15 mg PO DAILY Hold Instructions: Resume on 07/05/24. hydrocortisone 10 mg tablet 10 mg PO DAILY Hold Instructions: Resume on 07/05/24. Referrals / Follow Up: Lex Jiang MD [Primary Care Provider] - Within 2 Weeks Lex Jiang [[facility]] - Disposition Disposition (needs filled in before D/C Order can be placed): NonSkilled NH/Intermed Care Charges/Coding Visit Charges Inpatient E&M: 33583 Disch Hosp >30min
== END 2024-06-26 17:46 | disposition intermediate care facility (04) | DRG 193 ==
LOC: ED 06:55 → MS3 13:39
PROVIDERS: Admitting Provider Internal Medicine; Emergency Provider Emergency Medicine; PCP Family Medicine
DX: J13 Pneumonia due to Streptococcus pneumoniae (principal); G93.41 Metabolic encephalopathy; J96.22 Acute and chronic respiratory failure with hypercapnia; J96.21 Acute and chronic respiratory failure with hypoxia; J44.1 Chronic obstructive pulmonary disease with (acute) exacerbation; Z68.41 Body mass index [BMI] 40.0-44.9, adult; E27.40 Unspecified adrenocortical insufficiency; J44.0 Chronic obstructive pulmonary disease with (acute) lower respiratory infection; F25.9 Schizoaffective disorder, unspecified; D64.9 Anemia, unspecified; I10 Essential (primary) hypertension; E66.01 Morbid (severe) obesity due to excess calories; F41.9 Anxiety disorder, unspecified; K31.84 Gastroparesis; E87.6 Hypokalemia; F63.81 Intermittent explosive disorder; Z87.891 Personal history of nicotine dependence; Z79.82 Long term (current) use of aspirin; H54.8 Legal blindness, as defined in USA
CPT/HCPCS: 36415; 36600; 71045; 71275; 74176; 80048; 80053; 80164; 82607; 82746; 82803; 83735; 84100; 84443; 84484; 85025; 85379; 86850; 86900; 86901; 87040; 87449; 87633; 87811; 93005; 94002; 94640; 97802; 99285; Q9967; A4216; J2405

== ENCOUNTER 2024-07-16 03:46 | Inpatient (IN) | payer MEDICARE, MEDICAID, SELFPAY ==
[2024-07-16] VITALS (17 sets, daily range): BP systolic 114–146; BP diastolic 69–81; PULSE 81–115; RESP 16–20; TEMP 36.3–36.8; O2SAT 84–97; BMI 36.9
--- NOTE | 2024-07-16 04:01 | EKG12_ITS ---
Test Reason : SOB Blood Pressure : */* mmHG Vent. Rate : 109 BPM Atrial Rate : 109 BPM P-R Int : 152 ms QRS Dur : 96 ms QT Int : 342 ms P-R-T Axes : 49 52 232 degrees QTcB Int : 460 ms Sinus tachycardia Septal infarct , age undetermined T wave abnormality, consider inferolateral ischemia Abnormal ECG Confirmed by JOHN PAUL BAUMANN, ROCK ([id number]), general expeditor ANGELA OLSON ([id number]) on 07/19/2024 6:35:52 AM Referred By: JAYY Confirmed By: ROCK COKER MD
--- NOTE | 2024-07-16 04:08 | ED.VIS.DYS ---
HPI History of Present Illness Chief Complaint: Shortness of Breath Informant: patient and EMS Narrative Narrative: [place] increasing dyspnea hypoxia cough for last 2 days. Subjective fevers and myalgias. Occasional wheezing. History of COPD, asthma, adrenal insufficiency. He does not wear home oxygen. From his notes facility is placed on 5 L today. He does not wear oxygen. He is blind. Denies vomiting or diarrhea. Patient does have paperwork with DNR comfort care CODE STATUS signed back in 2019. He does state he would not want to be on a ventilator. Prior similar symptoms: Yes [facility] Medical History (Updated 07/16/24 @ 06:[address] Gt Wheeler, DO) Morbid obesity with BMI of 40.0-44.9, adult Intermittent explosive disorder Schizoaffective disorder Acute metabolic encephalopathy Bradycardia Chronic anal fissure Cellulitis Adrenocortical insufficiency Anemia Schizo affective schizophrenia Legally blind Intermittent explosive disorder COPD (chronic obstructive pulmonary disease) Hypertension Asthma Gastroparesis Cyclical vomiting Thrombocythemia Hypocalcemia Anxiety Home Medications ?Medication ?Instructions ?Recorded ?Last Taken ?Type albuterol sulfate 0.63 mg/3 mL 0.63 mg inhalation Q4H PRN 06/04/22 Unknown History solution for nebulization Shortness Of Breath amlodipine 10 mg tablet (Norvasc) 10 mg PO DAILY BLOOD PRESSURE 06/04/22 07/24/22 08:00 History benztropine 1 mg tablet 1 mg PO BID 06/04/22 07/23/22 History cyanocobalamin (vitamin B-12) 1,000 mcg PO WE SUPPLEMENT 06/04/22 07/24/22 08:00 History 1,000 mcg tablet escitalopram oxalate 10 mg tablet 10 mg PO BID MENTAL HEALTH 06/04/22 07/24/22 08:00 History (Lexapro) famotidine 20 mg tablet (Pepcid) 20 mg PO DAILY ACID REFLUX 06/04/22 07/23/22 History ferrous sulfate 325 mg (65 mg 325 mg PO BID SUPPLEMENT 06/04/22 07/24/22 08:00 History iron) tablet (FeroSul) fludrocortisone 0.1 mg tablet 0.1 mg PO DAILY 06/04/22 07/24/22 08:00 History fluticasone propionate 50 1 spray intranasal DAILY ALLERGIES 06/04/22 07/24/22 08:00 History mcg/actuation nasal spray,suspension (Flonase Allergy Relief) hydrochlorothiazide 25 mg tablet 25 mg PO DAILY BLOOD PRESSURE 06/04/22 07/24/22 08:00 History iloperidone 12 mg tablet (Fanapt) 12 mg PO DAILY MENTAL HEALTH 06/04/22 07/23/22 History iloperidone 6 mg tablet (Fanapt) 6 mg PO DAILY MENTAL HEALTH 06/04/22 07/24/22 08:00 History lorazepam 2 mg tablet 2 mg PO TID AGITATION 06/04/22 07/24/22 14:00 History lorazepam 2 mg tablet (Ativan) 2 mg PO Q6H PRN Agitation 06/04/22 Unknown History lorazepam 2 mg/mL injection 2 mg IM Q6H PRN AGITSTION 06/04/22 Unknown History solution (Ativan) quetiapine 300 mg tablet,extended 600 mg PO QHS MENTAL HEALTH 06/04/22 07/23/22 History release 24 hr (Seroquel XR) trazodone 100 mg tablet 100 mg PO DAILY MENTAL HEALTH 06/04/22 07/23/22 History aluminum-mag hydroxide-simethicone 30 ml PO Q4H PRN Heartburn 07/24/22 Unknown History 200 mg-200 mg-20 mg/5 mL oral susp aspirin 81 mg tablet,delayed 81 mg PO DAILY HEART HEALTH 07/24/22 07/24/22 08:00 History release calcium carbonate 500 mg PO BID SUPPLEMENT 07/24/22 07/24/22 08:00 History cholecalciferol (vitamin D3) 50 50 mcg PO DAILY SUPPLEMENT 07/24/22 07/24/22 08:00 History mcg (2,000 unit) tablet (Vitamin D3) loperamide 2 mg capsule 2 mg PO Q4H PRN STOOL 07/24/22 07/24/22 09:30 History magnesium hydroxide 400 mg/5 mL 30 ml PO Q24H PRN Constipation 07/24/22 Unknown History oral suspension (Milk of Magnesia) propranolol 80 mg capsule,24 80 mg PO DAILY BLOOD PRESSURE 07/24/22 07/24/22 08:00 History hr,extended release L.acidophil-L.casei-B.bifid-B.longum-FOS 1 cap PO DAILY 06/24/24 Unknown History 2 billion cell-50 mg capsule (Probiotic Blend) divalproex 125 mg capsule,delayed 250 mg PO Q8H 06/24/24 Unknown History release sprinkle folic acid 400 mcg tablet 1 mg PO DAILY 06/24/24 Unknown History hydrocortisone 10 mg tablet 10 mg PO DAILY 06/24/24 Unknown History hydrocortisone 5 mg tablet 15 mg PO DAILY 06/24/24 Unknown History lisinopril 20 mg tablet 20 mg PO DAILY 06/24/24 Unknown History pantoprazole 40 mg tablet,delayed 40 mg PO DAILY 06/24/24 Unknown History release potassium chloride 10 mEq 30 meq PO DAILY 06/24/24 Unknown History capsule,extended release hydrocortisone 20 mg tablet 20 mg PO BID #60 tabs 06/26/24 Unknown Rx hydralazine 10 mg tablet 10 mg PO TID 07/16/24 Unknown History levofloxacin 500 mg tablet 500 mg PO DAILY 07/16/24 Unknown History ondansetron 4 mg disintegrating 4 mg PO Q6H 07/16/24 Unknown History tablet Allergy/AdvReac Type Severity Reaction Status Date / Time acetic acid Allergy PT UNABLE Verified 07/16/24 03:47 TO RESPOND-NEEDS F/U nut - unspecified (nuts) Allergy PT UNABLE Verified 07/16/24 03:47 TO RESPOND-NEEDS F/U Penicillins Allergy PT UNABLE Verified 07/16/24 03:47 TO RESPOND-NEEDS F/U risperidone Allergy PT UNABLE Verified 07/16/24 03:47 TO RESPOND-NEEDS F/U Family History (Updated 07/16/24 @ 05:[address] Corrina Huerta MD) Father COPD (chronic obstructive pulmonary disease) Mother Hypertension Surgical History (Updated 07/16/24 @ 05:[address] Corrina Huerta MD) History of eye surgery S/P repair of hydrocele Social History housing: other details: Nursing facility with psychiatric focus. Smoking Status: Never smoker alcohol intake: never substance use type: does not use ROS ROS ED Constitutional Constitutional ED: Reports fever(s); Denies chills or sweats ENT ENT ED: Denies sore throat Cardiovascular Cardiovascular: Denies chest pain, leg edema, palpitations or racing heartbeat Respiratory/Chest Respiratory/Chest: Reports cough and dyspnea; Denies dyspnea on exertion Gastrointestinal Gastrointestinal: Denies abdominal pain, diarrhea, nausea or vomiting Genitourinary Genitourinary ED: Denies dysuria, hematuria or urinary frequency Musculoskeletal Musculoskeletal: Reports myalgias; Denies back pain, extremity pain or neck pain Integumentary Denies rash or wounds Neurologic Neurologic: Denies headache(s), paresthesias or weakness EXAM Physical Exam Const Vital Signs: 07/16/24 03:47 07/16/24 03:47 07/16/24 03:56 Temperature 98.3 F 98.3 F Temperature Source Oral Oral Pulse Rate 115 H 115 H Respiratory Rate 20 H 20 H Respiratory Effort Respiratory Depth Respiratory Pattern Blood Pressure 114/69 114/69 Blood Pressure Mean 84 84 Pulse Ox 84 88 88 Oxygen Delivery Method Room Air Nasal Cannula Nasal Cannula Oxygen Flow Rate (L/min) 6 6 07/16/24 03:57 07/16/24 04:00 07/16/24 04:13 Temperature Temperature Source Pulse Rate Respiratory Rate Respiratory Effort Short of Breath Labored Respiratory Depth Shallow Respiratory Pattern Tachypnea Blood Pressure Blood Pressure Mean Pulse Ox 89 91 Oxygen Delivery Method Nasal Cannula Airvo Airvo Oxygen Flow Rate (L/min) 6 6 7 07/16/24 04:30 07/16/24 04:45 07/16/24 05:00 Temperature 97.7 F L Temperature Source Oral Pulse Rate 108 H Respiratory Rate 20 H Respiratory Effort Respiratory Depth Respiratory Pattern Blood Pressure 119/80 Blood Pressure Mean 93 Pulse Ox 91 92 93 Oxygen Delivery Method Airvo Airvo Airvo Oxygen Flow Rate (L/min) 7 8 8 Positive well nourished and well developed Constitutional Narrative: 6 L nasal cannula, no respiratory distress. General Appearance ED: well developed and NAD HEENT HEENT Narrative: Mild dry mucosal membranes normocephalic and atraumatic Eyes Eyes Narrative: Visually impaired, no visualized pupils both eyes. Neck full ROM Chest Wall Chest: Negative for tenderness Resp normal respiratory effort and normal air movement Resp Narrative: Diminished sounds at bases there is no wheezing noted. Effort and Inspection: symmetric chest movement; Negative for respiratory distress Cardio regular rhythm and no murmurs Rate: tachycardic Peripheral Pulses: pulses 2+ throughout GI normal to inspection, nondistended, normoactive bowel sounds and non-tender Palpation: Negative for guarding or rebound tenderness present Extremity normal to inspection Extremity Narrative: Minimal lower extremity leg swelling. General Extremety ED: Yes edema; Negative for tenderness General Extremity: edema Neuro oriented x3 and no sensory deficits noted Sensorium / Orientation: awake and alert Skin no rashes or lesions noted and no wounds MDM MDM MDM Narrative Medical decision making narrative: Interventions / MDM: Differential diagnosis: Hypoxia, acute kidney injury, pneumonia Diagnosis considered but do not suspect: Sepsis however 1 out of 4 SIRS criteria My EKG interpretation: Sinus rate of 109, no ST changes. T wave inversions to lateral leads, new inversions compared to June 2024 Imaging independently reviewed and interpreted by myself: 1 view chest x-ray: Right hilar infiltrative changes. CT chest noncontrast: External documents reviewed: Previous labs with recent creatinine 0.95. Previous admissions most recent 1 last month. Test considered but not ordered:N/A ED course: Afebrile increasing oxygen demand 6 L nasal cannula pulse ox 88. No respite distress. Will have respiratory place him on Airvo for hypoxia. Sepsis labs ordered. EKG new T wave inversions lateral leads, no chest pains. Will add troponin. ABG for further evaluation with his hypoxia. 0430: Airvo 7 L pulse ox low 90s. No respiratory distress. ABG pH six 7.38 pCO2 51 pO2 54 bicarb 30. 0452: Labs white count 6.4 hemoglobin 12.6. Creatinine 4.63 BUN 35 GFR 14. Last creatinine 0.95 GFR of 88 June 25, 2024. Given IV fluid bolus. Chest x-ray interpreted myself no pleural effusion no pneumothorax questionable patchiness right hilar. With increasing oxygen demands, will obtain noncontrast CT chest for further evaluation. CT abdomen pelvis also obtained due to his GURJIT. Further discussion with the patient he did have 1 emesis yesterday. He could not clarify if he had a choking event afterwards. 0520: CT chest imaging reviewed by myself bilateral lower lobe infiltrative findings right greater than left. Also mild changes right middle lobe. I will cover him with Rocephin and Zithromax. Noted allergy to penicillin however from records he has been given Augmentin in the past. Urine did have nitrites 2+ bacteria. He denies any recent dysuria or frequency. Urine culture sent. His CAT scan negative for any hydronephrosis on my review. COVID, influenza, RSV negative. 0528: Lactic acid returned at 2.7 procalcitonin 0.67. He is on antibiotics. He is not hypotensive. 1 out of 4 SIRS criteria with his heart rate. Again discussed with the patient he would not want intubation or CPR. I will speak with hospitalist for admission. Re-evaluation: stable Disposition discussed with patient/family/significant other: Patient Case discussed with consulting clinician: Hospitalist This note was generated with mCASH dictation software. It may contain incorrect words, spelling, and punctuation that were not noted in checking the note before signing. Lab Data Attestation: I reviewed the patient's lab results. Labs: Laboratory Results - last 24 hr 07/16/24 07/16/24 04:15 04:33 WBC 6.4 RBC 4.05 L Hgb 12.6 L Hct 38.2 L MCV 94.3 H MCH 31.1 MCHC 33.0 RDW Std Deviation 49.1 H RDW Coeff of Eleanor 14.3 Plt Count 162 MPV 10.0 Immature Gran % (Auto) 0.500 Neut % (Auto) 82.9 H Lymph % (Auto) 4.4 L [place] % (Auto) 9.7 Eos % (Auto) 2.0 Baso % (Auto) 0.5 Absolute Neuts (auto) 5.3 Absolute Lymphs (auto) 0.28 L Nucleated RBC % 0 PT 14.8 INR 1.1 APTT 27.4 Sodium 138 Potassium 3.5 Chloride 99 Carbon Dioxide 31.0 Anion Gap 8 BUN 35 H Creatinine 4.63 H Estim Creat Clear Calc 21.96 Est GFR (MDRD) Af Amer 17 L Est GFR (MDRD) Non-Af 14 L BUN/Creatinine Ratio 7.6 L Glucose 156 H Lactic Acid 2.7 H* Calcium 8.0 L Magnesium 2.0 Total Bilirubin 0.50 AST 10 L ALT 14 L Alkaline Phosphatase 55 Troponin I High Sens 8 Total Protein 6.4 Albumin 2.8 L Globulin 3.6 Albumin/Globulin Ratio 0.8 L Procalcitonin 0.67 H Urine Color Yellow Urine Clarity Clear Urine pH 5.0 Ur Specific [place] 1.030 Urine Protein 30 H Urine Glucose (UA) Normal Urine Ketones 5 H Urine Occult Blood 10 H Urine Nitrite Positive H Urine Bilirubin 3 H Urine Urobilinogen 1 H Ur Leukocyte Esterase 25 H Urine RBC 0 SEEN Urine WBC 0-5 SEEN Ur Squamous Epith Cells 0-5 SEEN Urine Bacteria 2+ Urine Mucus 0 SEEN ABG Data ABG results: ABG 07/16/24 04:30 Specimen Type ART Sample Site R Radial pH 7.38 Bicarbonate Actual 30.6 H Total CO2 32 Base Excess 6 H O2 Saturation 87 L O2 % 7.0 ABG pCO2 51.3 H ABG pO2 54 L Fei Test Positive O2 Delivery Device Cannula Vent Mode Not entered Radiography Diagnostic Testing: Clinical Impression(s) from Imaging Studies Chest X-Ray 07/16/24 04:50 IMPRESSION: Developing infiltrate and/or subsegmental atelectasis, left lower lobe. Mild cardiac enlargement. Reading Location: [facility] Chest/Abdomen/Pelvis CT 07/16/24 04:58 IMPRESSION: 1. Bilateral lung pneumonias as detailed above. Reading Location: [facility] Discharge Plan Dx/Rx/DC Orders Clinical Impression: Hypoxia, Pneumonia, COPD (chronic obstructive pulmonary disease), GURJIT (acute kidney injury), Acidosis, lactic Disposition Disposition: [facility] Discharge Date/Time: 07/16/24 06:09
[2024-07-16] MEDS: Hydrocortisone Sod Succinate 100 MG/2 ML Vial IV (04:24)
[2024-07-16 04:26] LABS: Absolute Lymphocyte Count 0.28 X10^3/uL (0.83-4.51); Absolute Neutrophil Count 5.3 X10^3/uL (2.0-7.7); Basophil# 0.03 X10^3/uL; Basophil% 0.5 % (0-1); Eosinophil# 0.13 X10^3/uL; Hematocrit 38.2 % (40-54); Hemoglobin 12.6 g/dL (13.0-16.5); Lymphocyte # 0.28 X10^3/ul (0.83-4.51); Lymphocyte % 4.4 % (19-41); Mean Corpuscular Hgb 31.1 pg (27.0-32.0); Mean Corpuscular Volume 94.3 fL (80-94); Monocyte# 0.62 X10^3/uL; Monocyte% 9.7 % (0-10); NRBC Flagged by Analyzer 0 % (0-5); Neutrophil # 5.33 X10^3/uL (2.7-7.7); Neutrophil % 82.9 % (47-70); POSITIVE DIFFERENTIAL YES; Platelet Count 162 K/mm3 (150-450); RBC Distribution Width CV 14.3 % (11.6-14.6); RBC Distribution Width SD 49.1 fl (35.1-43.9); Red Blood Count 4.05 M/mm3 (4.6-6.2); White Blood Count 6.4 K/mm3 (4.4-11.0)
[2024-07-16 04:34] LABS: Allen Test Positive; Base Excess 6 mmol/L (-2 to +2); Bicarbonate 30.6 mmol/L (22-26); Blood Gas Specimen Type ART; Mode Not entered; O2 Delivery Device Cannula; PO2 54 mmHG (75-100); SITE R Radial; SO2 87 % (95-99); Total Carbon Dioxide 32 mmol/L; pCO2 51.3 mmHg (35-45); pH 7.38 (7.35-7.45)
[2024-07-16 04:36] LABS: Mucous, Urine 0 SEEN /hpf (<or=2+); Red Blood Cells-Urine 0 SEEN /hpf (0-5)
[2024-07-16 04:37] LABS: International Normalized Ratio 1.1; Prothrombin Time (Protime)PT. 14.8 SECONDS (11.7-14.9)
[2024-07-16 04:45] LABS: ALB/GLOB Ratio 0.8 RATIO (0.9-2.4); AST(SGOT) 10 U/L (15-37); Alanine Aminotransfer ALT/SGPT 14 U/L (16-61); Albumin, Serum 2.8 g/dL (3.2-5.0); Alkaline Phosphatase 55 U/L (45-117); Anion Gap 8 (5-15); BUN 35 mg/dL (7-18); BUN/Creat Ratio 7.6 RATIO (10-20); Chloride 99 mmol/L (98-107); Creatinine, Serum 4.63 mg/dL (0.70-1.30); EST Glomerular Filtration Rate 14 mL/min (>60); Est Glom Filt Rate - Afr Amer 17 mL/min (>60); Estimated Creatinine Clearance 21.96 ml/min; Globulin 3.6 g/dL (2.2-4.2); Glucose 156 mg/dL (74-106); Potassium 3.5 mmol/L (3.5-5.1); Protein, Total 6.4 g/dL (6.4-8.2); Sodium Level 138 mmol/L (136-145); Troponin-I HS 8 pg/mL (3.0-78.0)
[2024-07-16 04:47] LABS: Color, Urine Yellow (Yellow); Glucose, Dipstick Normal (Normal); Ketone-Dipstick 5 mg/dl (Negative); Leukocyte Esterase-Dipstick 25 /ul (Negative); Nitrite-Dipstick Positive (Negative); Occult Blood-Urine 10 /ul (Negative); Protein-Dipstick 30 mg/dl (Negative); Urine Clarity Clear (Clear); Urine Urobilinogen 1 mg/dl (Normal)
[2024-07-16 04:48] LABS: Partial Thromboplast Time 27.4 Seconds (24.1-36.2)
--- NOTE | 2024-07-16 04:50 | RAD_ITS ---
PROCEDURE: CHEST 1 VIEW (PORTABLE) REASON FOR EXAM: Cough. TECHNIQUE: AP upright portable chest. COMPARISON: 07/24/2022 FINDINGS: Suspicion of early infiltrates in the left lower lobe. No evidence of congestion. No pleural effusions, thickening, or pneumothorax. Mild cardiac enlargement. Aorta is atherosclerotic and tortuous. No hilar masses. Bones and soft tissues are unremarkable. RAD/Chest 1 View (Portable) IMPRESSION: Developing infiltrate and/or subsegmental atelectasis, left lower lobe. Mild cardiac enlargement. Reading Location: [facility]
[2024-07-16 04:51] LABS: Procalcitonin 0.67 ng/mL (0.00-0.09)
--- NOTE | 2024-07-16 04:58 | CT_ITS ---
PROCEDURE: CT CHEST WITHOUT CONTRAST REASON FOR EXAM: COUGH. TECHNIQUE: Contiguous axial scans of 3.75 mm slice thicknesses. Sagittal and coronal reconstruction images were obtained. One or more dose reduction techniques were used (e.g., automated exposure control, adjustment of mA and/or kv according to patient size, use of iterative reconstruction technique). COMPARISON: AP UPRIGHT PORTABLE CHEST DATED 07/16/2024. FINDINGS: CHEST: Lines and tubes: None. Mediastinum: No evidence of mediastinal hemorrhage. Heart: Normal heart size. No pericardial effusion. Thoracic Aorta: Unremarkable. Lungs and Airways: Diffuse airspace consolidation in the right lung, worse in the right lower lobe. Airspace consolidation in the left lower lobe. Associated air bronchograms. Pleura: No pleural effusion. No pneumothorax. Bones: Multilevel spondylosis. CT/CT Chest, Abd, Pelvis WO Cont IMPRESSION: 1. Bilateral lung pneumonias as detailed above. Reading Location: [facility]
[2024-07-16] MEDS: 0.9% Normal Saline (1000mL) 1,000 ML 999 ML IV (05:04)
[2024-07-16 05:12] LABS: Bacteria 2+ /hpf (None Seen); Squamous Epithelial Cells - UA 0-5 SEEN /hpf (0-5); Urine Bilirubin Dipstick 3 mg/dL (Negative); White Blood Cells 0-5 SEEN /hpf (0-5)
[2024-07-16 05:25] LABS: Lactic Acid 2.7 mmol/L (0.4-1.9)
--- NOTE | 2024-07-16 05:38 | PCM.HP.STD ---
HPI - General General Date of Admission: 07/16/24 Date of Service: 07/16/24 Chief Complaint: Dyspnea, cough, hypoxia, worsening. HPI Narrative The patient is a 54 y/o M w/ PMHx: Legally blind status, CKD stage II per GFR trending, chronic dysphagia, Obesity, Anxiety and Depression/intermittent explosive disorder/schizoaffective disorder, Adrenocortical insufficiency, Chronic anemia, HTN, HLD, Hx cyclic vomiting with gastroparesis, Asthma/COPD, recently discharged 06/26/2024 following evaluation and treatment of acute COPD/asthma exacerbation with associated acute hypoxic respiratory failure requiring Airvo eventually weaned to room air secondary to underlying pneumonia treated with Levaquin however given potential reactions discharged on doxycycline given penicillin allergy who presents to the [facility] ED on 07/16/2024 with history of increasing dyspnea and cough over the last 2 days with subjective fevers, myalgias, wheezing in addition to episode of nausea and emesis today previous, noted to have been placed on oxygen at his facility on day prior to presentation noted to be up to 5 L nasal cannula prompting facility bring patient back in for evaluation. Upon ED arrival patient does have some atypical type of access to the abdomen, port like in appearance, unclear thus requested ED staff contact his facility to gather more information. In the ED workup included T98.3, heart 115, BP 114/69, respiratory rate 20, initially 84% on room air with improvement to 88% on 6 L eventually transitioning to Airvo 7 L noted to be 91% with most recent repeat vitals T97.7, heart rate 108, BP 119/80, respiratory rate 20, 93% on 8 L Airvo, EKG with sinus tachycardia with new T wave inversions in the lateral leads, ABG with pH 7.38, bicarb 30.6, pCO2 51.3, pO2 54 on nasal cannula, CMP with BUN/creatinine 35/4.63, GFR 14, glucose 156, hepatic profile not marked appearing, CBC with WBC 6.4, hemoglobin 12.6, platelet 162 with lymphopenia, unremarkable coags, rapid SARS COVID/influenza/RSV negative, lactic acid 2.7, urinalysis with specific cavity 1.030, positive nitrite, leukocyte esterase 25 with no urine RBCs or WBCs with 2+ urine bacteria, procalcitonin 0.67, troponin 8, chest x-ray with developing infiltrate and/or subsegmental atelectasis in the left lower lobe with mild cardiac enlargement, EKG sinus tachycardia with new T wave inversions in lateral leads, blood culture x 2 pending per ED, urine culture pending per ED. In the ED patient ministered hydrocortisone 100 mg IV x 1, 1 L normal saline bolus, azithromycin 500 mg IV x 1, rocephin [address] chest/abdomen/pelvis pending per ED physician upon requested evaluation of patient. [facility] Medical History Morbid obesity with BMI of 40.0-44.9, adult Intermittent explosive disorder Schizoaffective disorder Acute metabolic encephalopathy Bradycardia Chronic anal fissure Cellulitis Adrenocortical insufficiency Anemia Schizo affective schizophrenia Legally blind Intermittent explosive disorder COPD (chronic obstructive pulmonary disease) Hypertension Asthma Gastroparesis Cyclical vomiting Thrombocythemia Hypocalcemia Anxiety Home Medications ?Medication ?Instructions ?Recorded ?Last Taken ?Type albuterol sulfate 0.63 mg/3 mL 0.63 mg inhalation Q4H PRN 06/04/22 Unknown History solution for nebulization Shortness Of Breath amlodipine 10 mg tablet (Norvasc) 10 mg PO DAILY BLOOD PRESSURE 06/04/22 07/24/22 08:00 History benztropine 1 mg tablet 1 mg PO BID 06/04/22 07/23/22 History cyanocobalamin (vitamin B-12) 1,000 mcg PO WE SUPPLEMENT 06/04/22 07/24/22 08:00 History 1,000 mcg tablet escitalopram oxalate 10 mg tablet 10 mg PO BID MENTAL HEALTH 06/04/22 07/24/22 08:00 History (Lexapro) famotidine 20 mg tablet (Pepcid) 20 mg PO DAILY ACID REFLUX 06/04/22 07/23/22 History ferrous sulfate 325 mg (65 mg 325 mg PO BID SUPPLEMENT 06/04/22 07/24/22 08:00 History iron) tablet (FeroSul) fludrocortisone 0.1 mg tablet 0.1 mg PO DAILY 06/04/22 07/24/22 08:00 History fluticasone propionate 50 1 spray intranasal DAILY ALLERGIES 06/04/22 07/24/22 08:00 History mcg/actuation nasal spray,suspension (Flonase Allergy Relief) hydrochlorothiazide 25 mg tablet 25 mg PO DAILY BLOOD PRESSURE 06/04/22 07/24/22 08:00 History iloperidone 12 mg tablet (Fanapt) 12 mg PO DAILY MENTAL HEALTH 06/04/22 07/23/22 History iloperidone 6 mg tablet (Fanapt) 6 mg PO DAILY MENTAL HEALTH 06/04/22 07/24/22 08:00 History lorazepam 2 mg tablet 2 mg PO TID AGITATION 06/04/22 07/24/22 14:00 History lorazepam 2 mg tablet (Ativan) 2 mg PO Q6H PRN Agitation 06/04/22 Unknown History lorazepam 2 mg/mL injection 2 mg IM Q6H PRN AGITSTION 06/04/22 Unknown History solution (Ativan) quetiapine 300 mg tablet,extended 600 mg PO QHS MENTAL HEALTH 06/04/22 07/23/22 History release 24 hr (Seroquel XR) trazodone 100 mg tablet 100 mg PO DAILY MENTAL HEALTH 06/04/22 07/23/22 History aluminum-mag hydroxide-simethicone 30 ml PO Q4H PRN Heartburn 07/24/22 Unknown History 200 mg-200 mg-20 mg/5 mL oral susp aspirin 81 mg tablet,delayed 81 mg PO DAILY HEART HEALTH 07/24/22 07/24/22 08:00 History release calcium carbonate 500 mg PO BID SUPPLEMENT 07/24/22 07/24/22 08:00 History cholecalciferol (vitamin D3) 50 50 mcg PO DAILY SUPPLEMENT 07/24/22 07/24/22 08:00 History mcg (2,000 unit) tablet (Vitamin D3) loperamide 2 mg capsule 2 mg PO Q4H PRN STOOL 07/24/22 07/24/22 09:30 History magnesium hydroxide 400 mg/5 mL 30 ml PO Q24H PRN Constipation 07/24/22 Unknown History oral suspension (Milk of Magnesia) propranolol 80 mg capsule,24 80 mg PO DAILY BLOOD PRESSURE 07/24/22 07/24/22 08:00 History hr,extended release L.acidophil-L.casei-B.bifid-B.longum-FOS 1 cap PO DAILY 06/24/24 Unknown History 2 billion cell-50 mg capsule (Probiotic Blend) divalproex 125 mg capsule,delayed 250 mg PO Q8H 06/24/24 Unknown History release sprinkle folic acid 400 mcg tablet 1 mg PO DAILY 06/24/24 Unknown History hydrocortisone 10 mg tablet 10 mg PO DAILY 06/24/24 Unknown History hydrocortisone 5 mg tablet 15 mg PO DAILY 06/24/24 Unknown History lisinopril 20 mg tablet 20 mg PO DAILY 06/24/24 Unknown History pantoprazole 40 mg tablet,delayed 40 mg PO DAILY 06/24/24 Unknown History release potassium chloride 10 mEq 30 meq PO DAILY 06/24/24 Unknown History capsule,extended release hydrocortisone 20 mg tablet 20 mg PO BID #60 tabs 06/26/24 Unknown Rx hydralazine 10 mg tablet 10 mg PO TID 07/16/24 Unknown History levofloxacin 500 mg tablet 500 mg PO DAILY 07/16/24 Unknown History ondansetron 4 mg disintegrating 4 mg PO Q6H 07/16/24 Unknown History tablet Allergy/AdvReac Type Severity Reaction Status Date / Time acetic acid Allergy PT UNABLE Verified 07/16/24 03:47 TO RESPOND-NEEDS F/U nut - unspecified (nuts) Allergy PT UNABLE Verified 07/16/24 03:47 TO RESPOND-NEEDS F/U Penicillins Allergy PT UNABLE Verified 07/16/24 03:47 TO RESPOND-NEEDS F/U risperidone Allergy PT UNABLE Verified 07/16/24 03:47 TO RESPOND-NEEDS F/U Family History (Updated 07/16/24 @ 05:[address] Corrina Huerta MD) Father COPD (chronic obstructive pulmonary disease) Mother Hypertension Family History unable to obtain Surgical History (Updated 07/16/24 @ 05:[address] Corrina Huerta MD) History of eye surgery S/P repair of hydrocele Surgical History unable to obtain Social History housing: other details: Nursing facility with psychiatric focus. Smoking Status: Never smoker alcohol intake: never substance use type: does not use ROS ROS Narrative Admission Review of Systems: CONSTITUTIONAL: No weight loss, fever, chills, + weakness or fatigue. HEENT: + Congestion, rhinorrhea. Eyes:+ Legally blind. Ears, Nose, Throat: No hearing loss, sneezing. SKIN: No rash or itching, lesions, wounds. CARDIOVASCULAR: No chest pain, chest pressure or chest discomfort, palpitations, edema, orthopnea, syncopal events. RESPIRATORY: + shortness of breath, cough without marked sputum, wheezing. No hemoptysis. GASTROINTESTINAL: + anorexia, nausea with episode of emesis x 1. Atyipcal access noted to the abdomen, attempting to clarify. No diarrhea, abdominal pain, melena, BRBPR. GENITOURINARY: No dysuria, frequency, urgency or retention. NEUROLOGICAL: No headache, dizziness, syncope, paralysis, ataxia, numbness or tingling in the extremities, focal weakness, change in bowel or bladder control, seizure. MUSCULOSKELETAL: + muscle, back pain, joint pain or stiffness. HEMATOLOGIC: + anemia, easy bleeding/bruising. LYMPHATICS: No enlarged nodes. No history of splenectomy. PSYCHIATRIC: + history of depression and anxiety/schizoaffective disorder/explosive disorder ENDOCRINOLOGIC: No reports of sweating, cold or heat intolerance. No polyuria or polydipsia. ALLERGIES: + History of asthma, rhinitis. Vital Signs Vital Signs Vital Signs: 07/16/24 03:47 07/16/24 03:47 07/16/24 03:56 Temperature 98.3 F 98.3 F Temperature Source Oral Oral Pulse Rate 115 H 115 H Respiratory Rate 20 H 20 H Respiratory Effort Respiratory Depth Respiratory Pattern Blood Pressure 114/69 114/69 Blood Pressure Mean 84 84 Pulse Ox 84 88 88 Oxygen Delivery Method Room Air Nasal Cannula Nasal Cannula Oxygen Flow Rate (L/min) 6 6 07/16/24 03:57 07/16/24 04:00 07/16/24 04:13 Temperature Temperature Source Pulse Rate Respiratory Rate Respiratory Effort Short of Breath Labored Respiratory Depth Shallow Respiratory Pattern Tachypnea Blood Pressure Blood Pressure Mean Pulse Ox 89 91 Oxygen Delivery Method Nasal Cannula Airvo Airvo Oxygen Flow Rate (L/min) 6 6 7 07/16/24 04:30 07/16/24 04:45 07/16/24 05:00 Temperature 97.7 F L Temperature Source Oral Pulse Rate 108 H Respiratory Rate 20 H Respiratory Effort Respiratory Depth Respiratory Pattern Blood Pressure 119/80 Blood Pressure Mean 93 Pulse Ox 91 92 93 Oxygen Delivery Method Airvo Airvo Airvo Oxygen Flow Rate (L/min) 7 8 8 Weight Weight: 242 lb 15.19 oz Body Mass Index (BMI) 36.9 Physical Exam Narrative Physical Examination: General: Awake, alert, oriented to self and recent events, fatigued, currently maintained on significant oxygen supplementation on Airvo. Skin: Normal color, normal turgor, no icterus, no cyanosis except for occasional abrasion. HEENT: AT/NC, legally blind status, dry MM, no carotid bruits or JVD noted. Lungs: Significantly diminished, greater bases, mildly increased respiratory rate with significant oxygen requirements on Airvo, no appreciated rales, ronchi or wheezing but minimal movement. Heart: Tachycardic with regular rhythm; no gallop, rub audible. Abdomen: Soft, obese, no tenderness to palpation or any rebound or guarding, atypical device/access device to the abdomen, attempted to clarify with nursing/facility, no marked distention, mildly hyperactive BS, no appreciated HSM. Extremities: No cyanosis, clubbing, or edema. Neurological: Awake, alert, oriented to self and recent events, fatigued and lethargic however, currently maintained on significant oxygen supplementation on Airvo, fatigued and ill-appearing, cognitive function at baseline however in the past patient does intermittently choose to avoid answering or having open discussions with individuals, cranial nerves grossly normal aside vision deficits w/ legally blind status, moving all 4 extremities, no focal deficits, strength moderately to severely globally decreased secondary to acute presentation. Psychiatric: Affect appears fatigued, no acute evidence of depressive or anxiety feelings but does have underlying significant psychiatric history. Results Lab / Micro Data 07/16/24 04:15 07/16/24 04:15 Labs: Laboratory Results - last 24 hr 07/16/24 04:15: WBC 6.4, RBC 4.05 L, Hgb 12.6 L, Hct 38.2 L, MCV 94.3 H, MCH 31.1, MCHC 33.0, RDW Std Deviation 49.1 H, RDW Coeff of Eleanor 14.3, Plt Count 162, MPV 10.0, Immature Gran % (Auto) 0.500, Neut % (Auto) 82.9 H, Lymph % (Auto) 4.4 L, [place] % (Auto) 9.7, Eos % (Auto) 2.0, Baso % (Auto) 0.5, Absolute Neuts (auto) 5.3, Absolute Lymphs (auto) 0.28 L, Nucleated RBC % 0, PT 14.8, INR 1.1, APTT 27.4, Sodium 138, Potassium 3.5, Chloride 99, Carbon Dioxide 31.0, Anion Gap 8, BUN 35 H, Creatinine 4.63 H, Estim Creat Clear Calc 21.96, Est GFR (MDRD) Af Amer 17 L, Est GFR (MDRD) Non-Af 14 L, BUN/Creatinine Ratio 7.6 L, Glucose 156 H, Lactic Acid 2.7 H*, Calcium 8.0 L, Total Bilirubin 0.50, AST 10 L, ALT 14 L, Alkaline Phosphatase 55, Troponin I High Sens 8, Total Protein 6.4, Albumin 2.8 L, Globulin 3.6, Albumin/Globulin Ratio 0.8 L, Procalcitonin 0.67 H 07/16/24 04:33: Urine Color Yellow, Urine Clarity Clear, Urine pH 5.0, Ur Specific [place] 1.030, Urine Protein 30 H, Urine Glucose (UA) Normal, Urine Ketones 5 H, Urine Occult Blood 10 H, Urine Nitrite Positive H, Urine Bilirubin 3 H, Urine Urobilinogen 1 H, Ur Leukocyte Esterase 25 H, Urine RBC 0 SEEN, Urine WBC 0-5 SEEN, Ur Squamous Epith Cells 0-5 SEEN, Urine Bacteria 2+, Urine Mucus 0 SEEN Micro: Microbiology 07/16/24 04:25 Mucosa - Nose SARS-CoV-2, Influenza & RSV (PCR) - Final ABG Data ABG results: ABG 07/16/24 04:30 Specimen Type ART Sample Site R Radial pH 7.38 Bicarbonate Actual 30.6 H Total CO2 32 Base Excess 6 H O2 Saturation 87 L O2 % 7.0 ABG pCO2 51.3 H ABG pO2 54 L Fei Test Positive O2 Delivery Device Cannula Vent Mode Not entered Imaging Radiology Impression Chest X-Ray 07/16/24 04:50 IMPRESSION: Developing infiltrate and/or subsegmental atelectasis, left lower lobe. Mild cardiac enlargement. Reading Location: [facility] Assessment & Plan Assessment/Plan (1) Pneumonia: (2) GURJIT (acute kidney injury): PLAN: Plan The patient is a 54 y/o M w/ PMHx: Legally blind status, CKD stage II per GFR trending, chronic dysphagia, Obesity, Anxiety and Depression/intermittent explosive disorder/schizoaffective disorder, Adrenocortical insufficiency, Chronic anemia, HTN, HLD, Hx cyclic vomiting with gastroparesis, Asthma/COPD, recently discharged 06/26/2024 following evaluation and treatment of acute COPD/asthma exacerbation with associated acute hypoxic respiratory failure requiring Airvo eventually weaned to room air secondary to underlying pneumonia treated with Levaquin however given potential reactions discharged on doxycycline given penicillin allergy who presents to the [facility] ED on 07/16/2024 with history of increasing dyspnea and cough over the last 2 days with subjective fevers, myalgias, wheezing in addition to episode of nausea and emesis today previous, noted to have been placed on oxygen at his facility on day prior to presentation noted to be up to 5 L nasal cannula prompting facility bring patient back in for evaluation. #1. Acute Hypoxic and Hypercarbic Respiratory Failure secondary to concern for BL Pneumonia and concurrent Acute on Chronic COPD/Asthma Exacerbation with associated lactic acidosis suspected secondary to primarily hypoxemia: Of note CT Chest/Abd/Pelvis pending upon requested evaluation of patient per ED. In the interim, given obvious presentation concerns will initiate admission to PCU in case of BIPAP needs although suspect patient likely would not tolerate, maintain on oxygen with wean as tolerated to room air, continue ATC budesonide, PRN albuterol, maintained on IV Cefepime and Vancomycin given recent admission and PNA treatment prior with MRSA screen requested with de-escalation as able, HOB, IS parameters w/ pending sputum cultures, full respiratory viral panel and urine antigens. Bld cx x 2 obtained in the ED. PT/OT/CM consulted for discharge planning. #2. Acute kidney injury on suspected CKD stage II per previous GFR trending: Secondary to potential medications as well as poor intake given recent illness. Admission BUN/Cr 35/4.63, GFR 14, prior baseline creatinine noted to be 0.8-0.9. Will hydrate, hold nephrotoxic medications and repeat chemistry in AM. If no improvement would plan FeNa and renal ultrasound assessment. Urinalysis currently requested. #3. EKG changes, nonspecific: EKG in ED sinus tachycardia with new T wave inversions in lateral leads new from recent 06/2024 EKG, initial trop normal. Will maintain on a monitored bed to assure no acute myocardial infarction with serial cardiac enzymes and EKGs. Magnesium level requested. Aspirin. #4. Hyperglycemia without diabetic history: Admission glucose 156, similarly elevated previously but patient's been on steroids, to be cautious will obtain hemoglobin A1c. #5. Chronic adrenal cortical insufficiency: Will temporally hold hydrocortisone/fludrocortisone while on Solu-Medrol, administer stress dose upon ED arrival, resume upon discharge with taper. #6. Anxiety and depression/intermittent explosive disorder/schizoaffective disorder: Will continue home escitalopram, Seroquel, Depakote, Fanapt, benztropine, Ativan as well as trazodone home regimen as renal function allows. Hold for sedation. #7. Hypertension: Continue home regimen including amlodipine, hydralazine as well as propranolol with hold parameters as needed. Holding hydrochlorothiazide and lisinopril given GURJIT, resume once clinically appropriate. PRN hydralazine. #8. Hyperlipidemia: Per current list not on statin therapy, defer to outpatient. #9. Legally blind status: Complicates presentation, maintain on fall precautions, lives in psychiatric focused facility. #10. Chronic anemia/iron deficiency anemia: Admission hemoglobin 12.6, MCV 94.3, baseline hemoglobin 11-12 range, continue CBC trending, continue iron supplementation. #11. History of cyclic vomiting syndrome with gastroparesis: For currently does not appear to be any chronic regimen, if necessary may certainly utilize Reglan if needed. UDS requested. #12. GERD: We will continue patient home PPI regimen. #13. Obesity: Weight loss and lifestyle changes encouraged. #14. DVT prophylaxis: Lovenox. #15. CODE STATUS: DNR-CCA, no intubation per facility paperwork. Charges/Coding Visit Charges Inpatient E&M: 49326 Init Hosp L3 Procedures Hospitalists Procedures: 91996 Advncd Care Plan 30 Min
[2024-07-16] MEDS: Ceftriaxone 1 GM/50 ML BAG IV (05:40)
--- NOTE | 2024-07-16 06:05 | ED.RN ---
This RN called [facility] and spoke to ARIC Hameed who explained that they were unable to obtain IV access and the [employer]SUMER SERVICES CONSULTANT web application tester ordered a hypodermoclysis. The RN from [facility] explained that she believes it is a 20g needle and it was running 60ml/hr NS until the patient left with EMS. The hypodermoclysis is located RMQ of the patient's abdomen. This RN left it in place, MD notified.
[2024-07-16] MEDS: Azithromycin 500 MG in 0.9% Normal Saline (250mL Bag) 250 ML 255 MG IV (06:47)
[2024-07-16] MEDS: 0.9% Normal Saline (1000mL) 1,000 ML 100 ML IV (06:47)
[2024-07-16 07:51] LABS: Troponin-I HS 9 pg/mL (3.0-78.0)
[2024-07-16 08:22] LABS: Reflex Lactate? Y
[2024-07-16] MEDS: hydrALAZINE 10 MG Tablet PO ×3 (08:25→22:48)
[2024-07-16] MEDS: Divalproex Sodium 125 MG SPRINKLE 250 MG PO ×3 (08:27→22:48)
[2024-07-16] MEDS: Aspirin E.C. 81 MG Tablet PO (08:28)
[2024-07-16] MEDS: 0.9% Saline Lock 10 ML Syringe IV ×3 (08:28→22:51)
[2024-07-16] MEDS: Folic Acid 1 MG Tablet PO (08:28)
[2024-07-16] MEDS: LORazepam 1 MG Tablet 2 MG PO ×3 (08:36→22:48)
[2024-07-16] MEDS: Vancomycin HCl 2,000 MG in 0.9% Normal Saline (500mL Bag) 500 ML 250 MG IV (08:54)
[2024-07-16 09:37] LABS: Troponin-I HS 8 pg/mL (3.0-78.0)
--- NOTE | 2024-07-16 09:51 | PCM.RX.CS ---
Consult Antibiotic Management Pharmacy has been consulted to manage selected antibiotic: Vancomycin Type of Intervention Type of Consult: New start Suspected Infection Suspected Infection: Pneumonia Labs Labs: Sodium 138 mmol/L (136-145) 07/16/24 04:15 Potassium 3.5 mmol/L (3.5-5.1) 07/16/24 04:15 Chloride 99 mmol/L (98-107) 07/16/24 04:15 Carbon Dioxide 31.0 mmol/L (21.0-32.0) 07/16/24 04:15 Anion Gap 8 (5-15) 07/16/24 04:15 BUN 35 mg/dL (7-18) H 07/16/24 04:15 Creatinine 4.63 mg/dL (0.70-1.30) H 07/16/24 04:15 Est GFR (MDRD) Af Amer 17 mL/min (>60) L 07/16/24 04:15 Est GFR (MDRD) Non-Af 14 mL/min (>60) L 07/16/24 04:15 BUN/Creatinine Ratio 7.6 RATIO (10-20) L 07/16/24 04:15 Glucose 156 mg/dL (74-106) H 07/16/24 04:15 Microbiology Microbiology: Microbiology 07/16/24 04:25 Mucosa - Nose SARS-CoV-2, Influenza & RSV (PCR) - Final Estimated Creatinine Clearance Estimated Creatinine Clearance: 21.96 Goal Trough Goal Trough: 15-20 mcg/mL Pharmacy Plan for Drug Dosing Pharmacy Plan for Drug Dosing: NEW START IV VANCOMYCIN Consulting Physician: Dr. Huerta Indication: Pneumonia Goal Trough: 15-20 SrCr: 4.63 CrCl: 21.96 Comments: Loading dose Vancomycin 2000mg x1 given @ 08:54 07/16/24 Vancomycin Dose: Vancomycin 1000mg Q24H to start @ 09:00 Pending Level: Vancomycin trough @ 08:30 07/18/24 Pharmacy Service will continue to monitor and adjust dosing as required. Follow-Up Labs Follow-Up Labs: Trough: Vancomycin (07/18/24 @ 08:30)
[2024-07-16 09:56] LABS: Lactic Acid 3.9 mmol/L (0.4-1.9)
[2024-07-16] MEDS: Benztropine 2 MG Tablet 1 MG PO ×2 (10:53→22:48)
[2024-07-16] MEDS: Lactobacillis Acidophilus 1 CAP PO (10:53)
[2024-07-16] MEDS: traZODone 100 MG Tablet PO (10:54)
[2024-07-16] MEDS: Fluticasone 0.05% 1 SPRAY NASAL.SRY NASAL (10:54)
[2024-07-16] MEDS: Potassium Chloride Oral Tablet 10 MEQ 30 MEQ PO (10:55)
[2024-07-16] MEDS: Propranolol LA 80 MG Capsule PO (10:55)
[2024-07-16] MEDS: Escitalopram Oxalate 10 MG Tablet PO ×2 (10:55→22:48)
[2024-07-16] MEDS: Enoxaparin 30 MG/0.3 ML Syringe SC (10:55)
[2024-07-16] MEDS: amLODIPine 10 MG Tablet PO (10:56)
[2024-07-16] MEDS: Pantoprazole Sodium 40 MG Tablet PO (10:56)
[2024-07-16] MEDS: QUEtiapine 100 MG Tablet 300 MG PO ×2 (10:56→22:48)
[2024-07-16] MEDS: Famotidine 20 MG Tablet PO (10:56)
[2024-07-16] MEDS: Ferrous Sulfate 325 MG Tablet PO (10:57)
--- NOTE | 2024-07-16 11:49 | PN.HOSP_ITS ---
Reason for Visit Reason for Visit: Diagnoses Pneumonia, unspecified organism (07/16/24) Acute kidney failure, unspecified (07/16/24) Objective Data Objective Data Vital Signs: Vital Signs Temp Pulse Resp BP Pulse Ox O2 Del Method O2 Flow Rate 98.2 F 104 H 17 133/74 H 94 Nasal Cannula 5 07/16/24 06:32 07/16/24 08:25 07/16/24 06:32 07/16/24 08:25 07/16/24 06:32 07/16/24 06:32 07/16/24 11:25 Oxygen Flow Rate (L/min) 5 Oxygen Delivery Method Nasal Cannula Weight: 107.5 kg Body Mass Index (BMI) 36.9 Intake & Output: Intake and Output for Last 24 Hours 07/14/24 07/15/24 07/16/24 23:59 23:59 23:59 Intake Total 1845 / 1845 Balance 1845 / 1845 Lab / Micro Data 07/16/24 04:15 07/16/24 04:15 Labs: Laboratory Results - last 24 hr 07/16/24 04:15: WBC 6.4, RBC 4.05 L, Hgb 12.6 L, Hct 38.2 L, MCV 94.3 H, MCH 31.1, MCHC 33.0, RDW Std Deviation 49.1 H, RDW Coeff of Eleanor 14.3, Plt Count 162, MPV 10.0, Immature Gran % (Auto) 0.500, Neut % (Auto) 82.9 H, Lymph % (Auto) 4.4 L, [place] % (Auto) 9.7, Eos % (Auto) 2.0, Baso % (Auto) 0.5, Absolute Neuts (auto) 5.3, Absolute Lymphs (auto) 0.28 L, Nucleated RBC % 0, PT 14.8, INR 1.1, APTT 27.4, Sodium 138, Potassium 3.5, Chloride 99, Carbon Dioxide 31.0, Anion Gap 8, BUN 35 H, Creatinine 4.63 H, Estim Creat Clear Calc 21.96, Est GFR (MDRD) Af Amer 17 L, Est GFR (MDRD) Non-Af 14 L, BUN/Creatinine Ratio 7.6 L, Glucose 156 H , Lactic Acid 2.7 H*, Calcium 8.0 L, Magnesium 2.0, Total Bilirubin 0.50, AST 10 L, ALT 14 L, Alkaline Phosphatase 55, Troponin I High Sens 8, Total Protein 6.4, Albumin 2.8 L, Globulin 3.6, Albumin/Globulin Ratio 0.8 L, Procalcitonin 0.67 H 07/16/24 04:33: Urine Color Yellow, Urine Clarity Clear, Urine pH 5.0, Ur Specific [place] 1.030, Urine Protein 30 H, Urine Glucose (UA) Normal, Urine Ketones 5 H, Urine Occult Blood 10 H, Urine Nitrite Positive H, Urine Bilirubin 3 H, Urine Urobilinogen 1 H, Ur Leukocyte Esterase 25 H, Urine RBC 0 SEEN, Urine WBC 0-5 SEEN, Ur Squamous Epith Cells 0-5 SEEN, Urine Bacteria 2+, Urine Mucus 0 SEEN 07/16/24 07:22: Troponin I High Sens 9 07/16/24 08:45: Lactic Acid 3.9 H*, Troponin I High Sens 8 Micro: Microbiology 07/16/24 04:33 Urine, Clean Catch Legionella Antigen - Final 07/16/24 04:33 Urine, Clean Catch Streptococcus pneumoniae Antigen (M - Final 07/16/24 08:59 Nasal Secretion MRSA (PCR) - Final Meth. resistant Staph. aureus 07/16/24 04:25 Mucosa - Nose SARS-CoV-2, Influenza & RSV (PCR) - Final ABG Data ABG results: ABG 07/16/24 04:30 Specimen Type ART Sample Site R Radial pH 7.38 Bicarbonate Actual 30.6 H Total CO2 32 Base Excess 6 H O2 Saturation 87 L O2 % 7.0 ABG pCO2 51.3 H ABG pO2 54 L Fei Test Positive O2 Delivery Device Cannula Vent Mode Not entered Radiography Diagnostic Testing: Radiology Impression Chest X-Ray 07/16/24 04:50 IMPRESSION: Developing infiltrate and/or subsegmental atelectasis, left lower lobe. Mild cardiac enlargement. Reading Location: [facility] Chest/Abdomen/Pelvis CT 07/16/24 04:58 IMPRESSION: 1. Bilateral lung pneumonias as detailed above. Reading Location: [facility]
[2024-07-16] MEDS: Cefepime HCl 2 GM in 0.9% Normal Saline (100mL MB+) 100 ML IV (11:51)
--- NOTE | 2024-07-16 12:24 | CASEMGMT ---
Social Work Pt is admitted from [facility]. Phone call to [facility] and they are able to accept pt back when medically ready. Phone call to pt sister/guardian Ashkan Oates who confirms plan is for return to [facility]. [facility] faxed Guardianship paperwork which names Ashkan Oates. Paperwork placed on pt chart. Plan: Return to [facility], when medically ready YOLI Moreno
[2024-07-16 13:28] LABS: Troponin-I HS 9 pg/mL (3.0-78.0)
--- NOTE | 2024-07-16 13:57 | CASEMGMT ---
Per Nu @ [facility], pt will not need a precert to return. Updates faxed. Jeannette Katz DC Planning Asst.
--- NOTE | 2024-07-16 15:18 | CHAPLAIN ---
Type of Pastoral Visit _x__ Initial Visit ___ Follow-up Visit ___ On-call Visit ___ General Patient Visit ___ Spiritual Assessment ___ Family Conference ___ Bereavement ___ Rapid Response ___ Code Blue ___ Other (describe below) Pastoral Care Referral From _x__ Patient ___ Family _x__ Nurse ___ Physician ___ Door Slinger ___ Commercial Construction Project Manager ___ Other (describe below) Sacrament/Intervention _x__ Active listening ___ Anointing ___ Jew ___ Bereavement ___ Communion ___ Jennifer exploration ___ ___ Life review ___ Prayer ___ Reconciliation ___ Sacrament of Sick _x__ Supportive presence ___ Wedding ___ Other (describe below) Pastoral Comments patient has been seen before and is normally very talkative; pt is blind and at times during the visit he asks about things in the room and the placement of items that are near him; pt carries the conversation on various topics after he explains how he was feeling and the reason for being in the hospital; pt explained some of his current living situation; pt appears to be content and is comfortable talking with people; pt asked for warm blankets to cover himself and 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
[2024-07-17] VITALS (9 sets, daily range): BP systolic 122–155; BP diastolic 84–98; PULSE 63–94; RESP 16–20; TEMP 35.8–36.9; O2SAT 92–96; BMI 37.5
--- NOTE | 2024-07-17 03:11 | NURSING ---
Patient has removed cardiac tele leads. After educating patient on the purpose of these leads, he adamantly refused to allow this RN to put the leads back on his chest. Haylee Acosta RN
[2024-07-17] MEDS: LORazepam 1 MG Tablet 2 MG PO ×3 (05:16→21:33)
[2024-07-17] MEDS: Divalproex Sodium 125 MG SPRINKLE 250 MG PO ×3 (05:17→21:35)
[2024-07-17] MEDS: hydrALAZINE 10 MG Tablet PO ×3 (05:17→21:18)
[2024-07-17] MEDS: 0.9% Saline Lock 10 ML Syringe IV ×2 (05:57→16:30)
[2024-07-17 06:54] LABS: Absolute Lymphocyte Count 0.19 X10^3/uL (0.83-4.51); Absolute Neutrophil Count 5.6 X10^3/uL (2.0-7.7); Basophil# 0.01 X10^3/uL; Basophil% 0.2 % (0-1); Hematocrit 33.4 % (40-54); Hemoglobin 11.1 g/dL (13.0-16.5); Lymphocyte # 0.19 X10^3/ul (0.83-4.51); Lymphocyte % 3.1 % (19-41); Mean Corp Hgb Conc 33.2 g/dL (32-36); Mean Corpuscular Volume 93.3 fL (80-94); Mean Platelet Vol. 9.8 fl (6.2-12.0); Monocyte# 0.25 X10^3/uL; Monocyte% 4.1 % (0-10); NRBC Flagged by Analyzer 0 % (0-5); Neutrophil # 5.58 X10^3/uL (2.7-7.7); Neutrophil % 91.6 % (47-70); POSITIVE DIFFERENTIAL YES; Platelet Count 149 K/mm3 (150-450); RBC Distribution Width CV 13.7 % (11.6-14.6); RBC Distribution Width SD 46.9 fl (35.1-43.9); Red Blood Count 3.58 M/mm3 (4.6-6.2); White Blood Count 6.1 K/mm3 (4.4-11.0)
[2024-07-17 07:29] LABS: ALB/GLOB Ratio 0.7 RATIO (0.9-2.4); AST(SGOT) 6 U/L (15-37); Alanine Aminotransfer ALT/SGPT 13 U/L (16-61); Albumin, Serum 2.6 g/dL (3.2-5.0); Alkaline Phosphatase 50 U/L (45-117); Anion Gap 6 (5-15); BUN 31 mg/dL (7-18); BUN/Creat Ratio 25.8 RATIO (10-20); Calcium,Total 7.7 mg/dL (8.5-10.1); Chloride 100 mmol/L (98-107); EST Glomerular Filtration Rate 67 mL/min (>60); Est Glom Filt Rate - Afr Amer 81 mL/min (>60); Estimated Creatinine Clearance 85.36 ml/min; Globulin 3.5 g/dL (2.2-4.2); Glucose 167 mg/dL (74-106); Potassium 3.6 mmol/L (3.5-5.1); Protein, Total 6.1 g/dL (6.4-8.2); Sodium Level 136 mmol/L (136-145)
[2024-07-17 09:10] LABS: Lactic Acid 2.8 mmol/L (0.4-1.9)
[2024-07-17] MEDS: Fluticasone 0.05% 1 SPRAY NASAL.SRY NASAL (09:22)
[2024-07-17] MEDS: Enoxaparin 30 MG/0.3 ML Syringe SC (09:22)
[2024-07-17] MEDS: Lactobacillis Acidophilus 1 CAP PO (09:23)
[2024-07-17] MEDS: Famotidine 20 MG Tablet PO (09:23)
[2024-07-17] MEDS: Potassium Chloride Oral Tablet 10 MEQ 30 MEQ PO (09:23)
[2024-07-17] MEDS: Aspirin E.C. 81 MG Tablet PO (09:23)
[2024-07-17] MEDS: Escitalopram Oxalate 10 MG Tablet PO ×2 (09:23→21:24)
[2024-07-17] MEDS: amLODIPine 10 MG Tablet PO (09:23)
[2024-07-17] MEDS: Ferrous Sulfate 325 MG Tablet PO (09:23)
[2024-07-17] MEDS: traZODone 100 MG Tablet PO (09:23)
[2024-07-17] MEDS: Folic Acid 1 MG Tablet PO (09:24)
[2024-07-17] MEDS: QUEtiapine 100 MG Tablet 300 MG PO ×2 (09:24→21:16)
[2024-07-17] MEDS: Propranolol LA 80 MG Capsule PO (09:24)
[2024-07-17] MEDS: Pantoprazole Sodium 40 MG Tablet PO (09:25)
[2024-07-17] MEDS: Benztropine 2 MG Tablet 1 MG PO ×2 (09:29→21:27)
[2024-07-17] MEDS: Vancomycin IV 1,000 MG/200 ML BAG 200 MG IV (09:37)
--- NOTE | 2024-07-17 10:39 | PCM.PN.HOSP ---
Reason for Visit Reason for Visit: Diagnoses Pneumonia, unspecified organism (07/16/24) Acute kidney failure, unspecified (07/16/24) Subjective Subjective Saw patient at bedside this morning. Patient was sitting back comfortably in bed and in no acute distress. Patient is blind and has schizoaffective disorder with some degree of cognitive impairment at baseline. He denied any acute pain or discomfort for me this morning and was breathing well on 4 L nasal cannula. He denied any shortness of breath. Stated he was feeling hungry and was about the breakfast. Denied any other acute concerns today. Objective Data Objective Data Vital Signs: Vital Signs Temp Pulse Resp BP Pulse Ox O2 Del Method O2 Flow Rate 97.7 F L 77 16 145/84 H 93 Nasal Cannula 4 07/17/24 09:56 07/17/24 09:56 07/17/24 09:56 07/17/24 09:56 07/17/24 09:56 07/17/24 09:58 07/17/24 09:58 Oxygen Flow Rate (L/min) 4 Oxygen Delivery Method Nasal Cannula Weight: 111.8 kg Body Mass Index (BMI) 37.5 Intake & Output: Intake and Output for Last 24 Hours 07/15/24 07/16/24 07/17/24 23:59 23:59 23:59 Intake Total 3875 / 3875 240 / 240 Output Total 925 / 925 300 / 300 Balance 2950 / 2950 -60 / -60 Lab / Micro Data 07/17/24 06:00 07/17/24 06:00 Labs: Laboratory Results - last 24 hr 07/16/24 12:50: Troponin I High Sens 9 07/17/24 06:00: WBC 6.1, RBC 3.58 L, Hgb 11.1 L, Hct 33.4 L, MCV 93.3, MCH 31.0, MCHC 33.2, RDW Std Deviation 46.9 H, RDW Coeff of Eleanor 13.7, Plt Count 149 L, MPV 9.8, Immature Gran % (Auto) 1.000 H, Neut % (Auto) 91.6 H, Lymph % (Auto) 3.1 L, Simpson % (Auto) 4.1, Eos % (Auto) 0.0, Baso % (Auto) 0.2, Absolute Neuts (auto) 5.6, Absolute Lymphs (auto) 0.19 L, Nucleated RBC % 0, Sodium 136, Potassium 3.6, Chloride 100, Carbon Dioxide 30.0, Anion Gap 6, BUN 31 H, Creatinine 1.20, Estim Creat Clear Calc 85.36, Est GFR (MDRD) Af Amer 81, Est GFR (MDRD) Non-Af 67, BUN/Creatinine Ratio 25.8 H, Glucose 167 H, Calcium 7.7 L, Total Bilirubin 0.30, AST 6 L, ALT 13 L, Alkaline Phosphatase 50, Total Protein 6.1 L, Albumin 2.6 L, Globulin 3.5, Albumin/Globulin Ratio 0.7 L 07/17/24 08:22: Lactic Acid 2.8 H* Micro: Microbiology 07/16/24 04:33 Urine, Clean Catch Urine Culture - Preliminary Culture exhibits no growth. 07/16/24 09:57 Mucosa - Nose Respiratory Panel (PCR) - Final 07/16/24 04:33 Urine, Clean Catch Legionella Antigen - Final 07/16/24 04:33 Urine, Clean Catch Streptococcus pneumoniae Antigen (M - Final 07/16/24 08:59 Nasal Secretion MRSA (PCR) - Final Meth. resistant Staph. aureus 07/16/24 04:25 Mucosa - Nose SARS-CoV-2, Influenza & RSV (PCR) - Final Physical Exam Const alert and no apparent distress Constitutional Narrative: Middle-age male, class II obesity, blind and some degree of cognitive impairment at baseline, otherwise sitting back comfortably in bed and in no acute distress. General Appearance: cooperative and comfortable HEENT normocephalic, head/scalp atraumatic, hearing grossly normal bilaterally, nasal mucous membranes and turbinates normal and moist oral mucous membranes Neck full ROM Chest inspection of chest normal Resp normal respiratory effort and no use of accessory muscles Resp Narrative: Breathing comfortably on 4 L nasal cannula at rest. Mildly decreased breath sounds bilaterally throughout but no wheezing or crackles noted. Cardio regular rate, regular rhythm, no murmurs and peripheral pulses 2+ throughout GI normal to inspection, nondistended, normoactive bowel sounds, soft to palpation, non-tender and non-distended Back/Spine normal ROM Extremity normal to inspection, full ROM and no pedal edema Skin no rashes or lesions noted Neuro moves all extremities and no focal motor deficits Assessment & Plan Assessment/Plan (1) Pneumonia: (2) COPD (chronic obstructive pulmonary disease): (3) Hypoxia: (4) GURJIT (acute kidney injury): PLAN: Plan Patient is a 54-year-old male who presented [facility] ED on 07/16/2024 with worsening shortness of breath and flulike symptoms. 1. Acute hypoxic and hypercapnic respiratory failure secondary to suspected bilateral pneumonia and COPD/asthma exacerbation, improving ? Recently hospitalized here in late June for acute COPD/asthma exacerbation and pneumonia with acute respiratory failure requiring Airvo. He was able to be weaned off supplemental oxygen by discharge. Had worsening shortness of breath with hypoxia at his facility and presented again on 07/[address] chest on admit showed diffuse airspace consolidation in the bilateral lower lobes with associated air bronchograms consistent with pneumonia. Was requiring high flow nasal cannula on admit, now weaned to 4 L nasal cannula at rest on 07/17. Continue treatment with IV steroids, scheduled DuoNebs and IV antibiotics. Wean supplemental oxygen as able. 2. GURJIT, improving ? Creatinine 4.63 on admit, baseline around 0.9. Significantly improved to 1.2 on hospital day 2 after IV fluid resuscitation. Presumed prerenal etiology. Continue to monitor daily BMP and urine output. 3. Legally blind status with cognitive impairment ? Lives at a facility and will plan for discharge back there once medically ready. These things to complicate his hospital course, care and prognosis. Chronic medical conditions: ? Class II obesity: BMI 37 on admit. Complicates hospital course, care and prognosis. ? Anxiety/depression with schizoaffective disorder and intermittent explosive disorder: Stable. Continue home medications. ? Hypertension: Holding home lisinopril for GURJIT. Otherwise continue home hydralazine, amlodipine and propranolol. ? Mild chronic anemia: Hemoglobin stable at baseline 11-12. ? Chronic adrenal insufficiency: Continue home medications. ? GERD: Continue home PPI. DVT prophylaxis: Heparin subcu CODE STATUS: DNR CCA, DNI Expect disposition: Back to facility, 1 to 2 days Total clinical time spent by myself addressing the patient's medical issues, reviewing all the data, and collaborating with patient's care team: 35 minutes. Charges/Coding Visit Charges Inpatient E&M: 33018 Subs Hosp L2
[2024-07-17] MEDS: Cefepime HCl 2 GM in 0.9% Normal Saline (100mL MB+) 100 ML IV (10:51)
--- NOTE | 2024-07-17 12:05 | PCM.RX.CS ---
Consult Antibiotic Management Pharmacy has been consulted to manage selected antibiotic: Vancomycin Type of Intervention Type of Consult: Follow-up Suspected Infection Suspected Infection: Pneumonia Labs Labs: Sodium 136 mmol/L (136-145) 07/17/24 06:00 Potassium 3.6 mmol/L (3.5-5.1) 07/17/24 06:00 Chloride 100 mmol/L (98-107) 07/17/24 06:00 Carbon Dioxide 30.0 mmol/L (21.0-32.0) 07/17/24 06:00 Anion Gap 6 (5-15) 07/17/24 06:00 BUN 31 mg/dL (7-18) H 07/17/24 06:00 Creatinine 1.20 mg/dL (0.70-1.30) 07/17/24 06:00 Est GFR (MDRD) Af Amer 81 mL/min (>60) 07/17/24 06:00 Est GFR (MDRD) Non-Af 67 mL/min (>60) 07/17/24 06:00 BUN/Creatinine Ratio 25.8 RATIO (10-20) H 07/17/24 06:00 Glucose 167 mg/dL (74-106) H 07/17/24 06:00 Microbiology Microbiology: Microbiology 07/16/24 04:33 Urine, Clean Catch Urine Culture - Preliminary Culture exhibits no growth. 07/16/24 09:57 Mucosa - Nose Respiratory Panel (PCR) - Final 07/16/24 04:33 Urine, Clean Catch Legionella Antigen - Final 07/16/24 04:33 Urine, Clean Catch Streptococcus pneumoniae Antigen (M - Final 07/16/24 08:59 Nasal Secretion MRSA (PCR) - Final Meth. resistant Staph. aureus 07/16/24 04:25 Mucosa - Nose SARS-CoV-2, Influenza & RSV (PCR) - Final Goal Trough Goal Trough: 15-20 mcg/mL Pharmacy Plan for Drug Dosing Pharmacy Plan for Drug Dosing: DAILY ASSESSMENT Current Vancomycin Dose: 1000mg q24h (0900) Number of Doses Received: x1 2000mg dose, x1 1000mg dose Current Renal Function: SrCr 1.20 Renal Function Trend: SrCr improving (was 4.63 on 07/16/24) Lab/Micro: Any Change in Vanc Plan: due to improved renal function, recommend changing from 1000mg q24h to 1250mg q12h. keep trough level the same to ensure level is not high Pending Level: 07/18/24 at 0830 Pharmacy Service will continue to monitor and adjust dosing as required. Follow-Up Labs Follow-Up Labs: Trough: Vancomycin (07/18/24 at 0830)
[2024-07-17 12:28] LABS: Reflex Lactate? Y
[2024-07-17 14:00] LABS: Lactic Acid 2.4 mmol/L (0.4-1.9)
[2024-07-17] MEDS: Ondansetron 4 MG/2 ML Vial IV (16:30)
[2024-07-17] MEDS: Vancomycin HCl 1,250 MG in 0.9% Normal Saline (250mL Bag) 250 ML 167 MG IV (21:09)
[2024-07-18] VITALS (9 sets, daily range): BP systolic 131–150; BP diastolic 74–100; PULSE 58–79; RESP 16–18; TEMP 36.2–36.8; O2SAT 93–95; BMI 37.2
[2024-07-18] MEDS: Ondansetron 4 MG/2 ML Vial IV (04:34)
[2024-07-18] MEDS: hydrALAZINE 10 MG Tablet PO ×3 (04:36→21:28)
[2024-07-18] MEDS: Divalproex Sodium 125 MG SPRINKLE 250 MG PO ×3 (06:43→21:28)
[2024-07-18] MEDS: LORazepam 1 MG Tablet 2 MG PO ×3 (06:43→21:25)
[2024-07-18] MEDS: Aspirin E.C. 81 MG Tablet PO (08:12)
[2024-07-18] MEDS: Folic Acid 1 MG Tablet PO (08:12)
[2024-07-18] MEDS: Ferrous Sulfate 325 MG Tablet PO (08:12)
[2024-07-18] MEDS: predniSONE 20 MG Tablet 40 MG PO (09:15)
[2024-07-18 09:18] LABS: Vancomycin, Trough Level 14.2 ug/mL (5.0-15.0)
--- NOTE | 2024-07-18 10:15 | PCM.RX.CS ---
Consult Antibiotic Management Pharmacy has been consulted to manage selected antibiotic: Vancomycin Type of Intervention Type of Consult: Follow-up Suspected Infection Suspected Infection: Pneumonia Labs Labs: Sodium 136 mmol/L (136-145) 07/17/24 06:00 Potassium 3.6 mmol/L (3.5-5.1) 07/17/24 06:00 Chloride 100 mmol/L (98-107) 07/17/24 06:00 Carbon Dioxide 30.0 mmol/L (21.0-32.0) 07/17/24 06:00 Anion Gap 6 (5-15) 07/17/24 06:00 BUN 31 mg/dL (7-18) H 07/17/24 06:00 Creatinine 1.20 mg/dL (0.70-1.30) 07/17/24 06:00 Est GFR (MDRD) Af Amer 81 mL/min (>60) 07/17/24 06:00 Est GFR (MDRD) Non-Af 67 mL/min (>60) 07/17/24 06:00 BUN/Creatinine Ratio 25.8 RATIO (10-20) H 07/17/24 06:00 Glucose 167 mg/dL (74-106) H 07/17/24 06:00 Vancomycin Trough 14.2 ug/mL (5.0-15.0) 07/18/24 08:19 Microbiology Microbiology: Microbiology 07/16/24 04:37 Blood Culture (Wb) - Anticubital Right Blood Culture - Preliminary No growth in 48 hours. 07/16/24 04:15 Blood Culture (Wb) - Left Hand Blood Culture - Preliminary No growth in 48 hours. 07/16/24 04:33 Urine, Clean Catch Urine Culture - Final Culture exhibits no growth. 07/16/24 09:57 Mucosa - Nose Respiratory Panel (PCR) - Final 07/16/24 04:33 Urine, Clean Catch Legionella Antigen - Final 07/16/24 04:33 Urine, Clean Catch Streptococcus pneumoniae Antigen (M - Final 07/16/24 08:59 Nasal Secretion MRSA (PCR) - Final Meth. resistant Staph. aureus 07/16/24 04:25 Mucosa - Nose SARS-CoV-2, Influenza & RSV (PCR) - Final Goal Trough Goal Trough: 15-20 mcg/mL Pharmacy Plan for Drug Dosing Pharmacy Plan for Drug Dosing: VANCOMYCIN LEVEL RECEIVED Current Vancomycin Dose: 1250mg q12h () Number of Doses Received: x1 2000mg dose, x1 1000mg dose, x1 1250mg dose Vancomycin Level: 14.7 (drawn 07/18/24 at 0819) Hours Since Last Dose: 11.5 hours since last 1250mg dose Renal Function: Last SrCr level was 28 and was 1.2 Renal Function Trend: SrCr improving (was 4.63) Lab/Micro: Vancomycin Plan/Comments: resulted trough of 14.2 is below the ordered goal trough range of 15-20. patient has improving renal function and dose was recently changed from 1000mg q24h to 1250mg q12h. patient has received x1 dose of 1250mg. recommend continuing current dose of 1250mg q12h and monitoring renal function. Pending Level: 07/19/24 at 2029 Pharmacy Service will continue to monitor and adjust dosing as required. Follow-Up Labs Follow-Up Labs: Trough: Vancomycin (07/19/24 at 2030)
--- NOTE | 2024-07-18 10:40 | PCM.PN.HOSP ---
Reason for Visit Reason for Visit: Diagnoses Pneumonia, unspecified organism (07/16/24) Chronic obstructive pulmonary disease, unspecified (07/16/24) Acute kidney failure, unspecified (07/16/24) Hypoxemia (07/16/24) Subjective Subjective Saw patient at bedside this morning. Patient was standing at the edge of the bed and was about to work with therapy when I saw him. He appeared similar to yesterday. Was breathing comfortably on 5 L nasal cannula. No other new concerns today. Objective Data Objective Data Vital Signs: Vital Signs Temp Pulse Resp BP Pulse Ox O2 Del Method O2 Flow Rate 97.9 F 79 18 149/74 H 95 Nasal Cannula 5 07/18/24 08:06 07/18/24 08:06 07/18/24 08:06 07/18/24 08:06 07/18/24 08:06 07/18/24 08:06 07/18/24 08:06 Oxygen Flow Rate (L/min) 5 Oxygen Delivery Method Nasal Cannula Weight: 111.1 kg Body Mass Index (BMI) 37.2 Intake & Output: Intake and Output for Last 24 Hours 07/16/24 07/17/24 07/18/24 23:59 23:59 23:59 Intake Total 3875 / 3875 1140 / 1140 875 / 875 Output Total 925 / 925 300 / 300 Balance 2950 / 2950 840 / 840 875 / 875 Lab / Micro Data 07/17/24 06:00 07/17/24 06:00 Labs: Laboratory Results - last 24 hr 07/17/24 13:16: Lactic Acid 2.4 H* 07/18/24 08:19: Vancomycin Trough 14.2 Micro: Microbiology 07/16/24 04:37 Blood Culture (Wb) - Anticubital Right Blood Culture - Preliminary No growth in 48 hours. 07/16/24 04:15 Blood Culture (Wb) - Left Hand Blood Culture - Preliminary No growth in 48 hours. 07/16/24 04:33 Urine, Clean Catch Urine Culture - Final Culture exhibits no growth. 07/16/24 09:57 Mucosa - Nose Respiratory Panel (PCR) - Final 07/16/24 04:33 Urine, Clean Catch Legionella Antigen - Final 07/16/24 04:33 Urine, Clean Catch Streptococcus pneumoniae Antigen (M - Final 07/16/24 08:59 Nasal Secretion MRSA (PCR) - Final Meth. resistant Staph. aureus 07/16/24 04:25 Mucosa - Nose SARS-CoV-2, Influenza & RSV (PCR) - Final Physical Exam Const alert and no apparent distress Constitutional Narrative: Middle-age male, class II obesity, blind and some degree of cognitive impairment at baseline, otherwise sitting back comfortably in bed and in no acute distress. General Appearance: cooperative and comfortable HEENT normocephalic, head/scalp atraumatic, hearing grossly normal bilaterally, nasal mucous membranes and turbinates normal and moist oral mucous membranes Neck full ROM Chest inspection of chest normal Resp normal respiratory effort and no use of accessory muscles Resp Narrative: Breathing comfortably on 5 L nasal cannula at rest. Mildly decreased breath sounds bilaterally throughout but no wheezing or crackles noted. Stable. Cardio regular rate, regular rhythm, no murmurs and peripheral pulses 2+ throughout GI normal to inspection, nondistended, normoactive bowel sounds, soft to palpation, non-tender and non-distended Back/Spine normal ROM Extremity normal to inspection, full ROM and no pedal edema Skin no rashes or lesions noted Neuro moves all extremities and no focal motor deficits Assessment & Plan Assessment/Plan (1) Pneumonia: (2) COPD (chronic obstructive pulmonary disease): (3) Hypoxia: (4) GURJIT (acute kidney injury): PLAN: Plan Patient is a 54-year-old male who presented [facility] ED on 07/16/2024 with worsening shortness of breath and flulike symptoms. 1. Acute hypoxic and hypercapnic respiratory failure secondary to suspected bilateral pneumonia and COPD/asthma exacerbation, improving ? Recently hospitalized here in late June for acute COPD/asthma exacerbation and pneumonia with acute respiratory failure requiring Airvo. He was able to be weaned off supplemental oxygen by discharge. Had worsening shortness of breath with hypoxia at his facility and presented again on 07/[address] chest on admit showed diffuse airspace consolidation in the bilateral lower lobes with associated air bronchograms consistent with pneumonia. Was requiring high flow nasal cannula on admit, now weaned to 5 L nasal cannula at rest on 07/18. MRSA probe positive, all other infectious workup negative to this point. Will continue both IV vancomycin and cefepime for now. Transitioned to p.o. steroids on 07/18. Continue scheduled DuoNebs for now. Wean supplemental oxygen as able. 2. GURJIT, improving ? Creatinine 4.63 on admit, baseline around 0.9. Significantly improved to 1.2 on hospital day 2 after IV fluid resuscitation. Presumed prerenal etiology. Continue to monitor daily BMP and urine output. 3. Legally blind status with cognitive impairment ? Lives at a facility and will plan for discharge back there once medically ready. Complicates hospital course, care and prognosis. Chronic medical conditions: ? Class II obesity: BMI 37 on admit. Complicates hospital course, care and prognosis. ? Anxiety/depression with schizoaffective disorder and intermittent explosive disorder: Stable. Continue home medications. ? Hypertension: Holding home lisinopril for GURJIT. Otherwise continue home hydralazine, amlodipine and propranolol. ? Mild chronic anemia: Hemoglobin stable at baseline 11-12. ? Chronic adrenal insufficiency: Continue home medications. ? GERD: Continue home PPI. DVT prophylaxis: Heparin subcu CODE STATUS: DNR CCA, DNI Expect disposition: Back to facility, 1 to 2 days Total clinical time spent by myself addressing the patient's medical issues, reviewing all the data, and collaborating with patient's care team: 35 minutes. Charges/Coding Visit Charges Inpatient E&M: 97161 Subs Hosp L2
[2024-07-18] MEDS: Vancomycin HCl 1,250 MG in 0.9% Normal Saline (250mL Bag) 250 ML 167 MG IV ×2 (10:46→21:24)
[2024-07-18] MEDS: Lactobacillis Acidophilus 1 CAP PO (10:50)
[2024-07-18] MEDS: Benztropine 2 MG Tablet 1 MG PO ×2 (10:51→21:29)
[2024-07-18] MEDS: Fluticasone 0.05% 1 SPRAY NASAL.SRY NASAL (10:51)
[2024-07-18] MEDS: traZODone 100 MG Tablet PO (10:52)
[2024-07-18] MEDS: Potassium Chloride Oral Tablet 10 MEQ 30 MEQ PO (10:52)
[2024-07-18] MEDS: Enoxaparin 30 MG/0.3 ML Syringe SC (10:53)
[2024-07-18] MEDS: Famotidine 20 MG Tablet PO (10:53)
[2024-07-18] MEDS: Escitalopram Oxalate 10 MG Tablet PO ×2 (10:53→21:29)
[2024-07-18] MEDS: Pantoprazole Sodium 40 MG Tablet PO (10:54)
[2024-07-18] MEDS: amLODIPine 10 MG Tablet PO (10:54)
[2024-07-18] MEDS: QUEtiapine 100 MG Tablet 300 MG PO ×2 (10:54→21:29)
[2024-07-18] MEDS: Propranolol LA 80 MG Capsule PO (10:55)
[2024-07-18] MEDS: Cefepime HCl 2 GM in 0.9% Normal Saline (100mL MB+) 100 ML IV (12:30)
[2024-07-18 17:57] LABS: Hemoglobin A1c 5.8 % (3.8-5.6)
[2024-07-18 18:52] LABS: Hemoglobin A1c 5.9 % (3.8-5.6)
[2024-07-18] MEDS: 0.9% Saline Lock 10 ML Syringe IV (21:24)
[2024-07-19] VITALS (8 sets, daily range): BP systolic 107–156; BP diastolic 62–87; PULSE 64–98; RESP 16–18; TEMP 36.4–37; O2SAT 95–99
[2024-07-19] MEDS: hydrALAZINE 10 MG Tablet PO ×3 (05:32→21:27)
[2024-07-19] MEDS: Divalproex Sodium 125 MG SPRINKLE 250 MG PO ×3 (05:32→21:28)
[2024-07-19] MEDS: LORazepam 1 MG Tablet 2 MG PO ×3 (05:33→21:38)
[2024-07-19 06:30] LABS: Hematocrit 37.6 % (40-54); Hemoglobin 11.9 g/dL (13.0-16.5); Mean Corp Hgb Conc 31.6 g/dL (32-36); Mean Corpuscular Hgb 30.7 pg (27.0-32.0); Mean Corpuscular Volume 97.2 fL (80-94); Mean Platelet Vol. 9.3 fl (6.2-12.0); Platelet Count 141 K/mm3 (150-450); RBC Distribution Width CV 14.3 % (11.6-14.6); RBC Distribution Width SD 51.5 fl (35.1-43.9); Red Blood Count 3.87 M/mm3 (4.6-6.2); White Blood Count 5.2 K/mm3 (4.4-11.0)
[2024-07-19 06:50] LABS: Anion Gap 5 (5-15); BUN 27 mg/dL (7-18); Chloride 100 mmol/L (98-107); Creatinine, Serum 1.04 mg/dL (0.70-1.30); EST Glomerular Filtration Rate 79 mL/min (>60); Est Glom Filt Rate - Afr Amer 96 mL/min (>60); Estimated Creatinine Clearance 98.17 ml/min; Glucose 139 mg/dL (74-106); Sodium Level 134 mmol/L (136-145)
[2024-07-19] MEDS: Vancomycin HCl 1,250 MG in 0.9% Normal Saline (250mL Bag) 250 ML 167 MG IV ×2 (10:14→22:27)
[2024-07-19] MEDS: amLODIPine 10 MG Tablet PO (10:45)
[2024-07-19] MEDS: QUEtiapine 100 MG Tablet 300 MG PO ×2 (10:45→21:27)
[2024-07-19] MEDS: Pantoprazole Sodium 40 MG Tablet PO (10:45)
[2024-07-19] MEDS: Propranolol LA 80 MG Capsule PO (10:45)
[2024-07-19] MEDS: Folic Acid 1 MG Tablet PO (10:45)
[2024-07-19] MEDS: Potassium Chloride Oral Tablet 10 MEQ 30 MEQ PO (10:45)
[2024-07-19] MEDS: Famotidine 20 MG Tablet PO (10:46)
[2024-07-19] MEDS: Ferrous Sulfate 325 MG Tablet PO (10:46)
[2024-07-19] MEDS: Aspirin E.C. 81 MG Tablet PO (10:46)
[2024-07-19] MEDS: Lactobacillis Acidophilus 1 CAP PO (10:46)
[2024-07-19] MEDS: Benztropine 2 MG Tablet 1 MG PO ×2 (10:46→21:27)
[2024-07-19] MEDS: Escitalopram Oxalate 10 MG Tablet PO ×2 (10:46→21:27)
[2024-07-19] MEDS: traZODone 100 MG Tablet PO (10:46)
[2024-07-19] MEDS: Enoxaparin 30 MG/0.3 ML Syringe SC (10:56)
[2024-07-19] MEDS: Fluticasone 0.05% 1 SPRAY NASAL.SRY NASAL (10:57)
[2024-07-19] MEDS: Cefepime HCl 2 GM in 0.9% Normal Saline (100mL MB+) 100 ML IV (13:32)
[2024-07-19] MEDS: predniSONE 20 MG Tablet 40 MG PO (13:33)
[2024-07-19] MEDS: 0.9% Saline Lock 10 ML Syringe IV ×2 (13:33→22:28)
[2024-07-19] MEDS: Acetaminophen 325 MG Tablet 650 MG PO (15:03)
--- NOTE | 2024-07-19 20:20 | PN.HOSP_ITS ---
Reason for Visit Reason for Visit: Diagnoses Pneumonia, unspecified organism (07/16/24) Chronic obstructive pulmonary disease, unspecified (07/16/24) Acute kidney failure, unspecified (07/16/24) Hypoxemia (07/16/24) Subjective Subjective Patient was seen and examined today, he is currently on 4 L of nasal cannula oxygen and appears to be comfortable. I have ordered a chest x-ray for the a.m., patient is currently on cefepime and vancomycin. Objective Data Objective Data Vital Signs: Vital Signs Temp Pulse Resp BP Pulse Ox O2 Del Method O2 Flow Rate 97.9 F 67 16 120/81 H 99 Nasal Cannula 4 07/19/24 14:50 07/19/24 14:53 07/19/24 14:50 07/19/24 14:53 07/19/24 14:50 07/19/24 14:50 07/19/24 14:50 Oxygen Flow Rate (L/min) 4 Oxygen Delivery Method Nasal Cannula Weight: 111.1 kg Body Mass Index (BMI) 37.2 Intake & Output: Intake and Output for Last 24 Hours 07/17/24 07/18/24 07/19/24 23:59 23:59 23:59 Intake Total 1140 / 1140 2385.5 / 2385.5 1974 / 1974 Output Total 300 / 300 1700 / 1700 1949 / 1949 Balance 840 / 840 685.5 / 685.5 Lab / Micro Data 07/20/24 04:00 07/20/24 04:00 Labs: Laboratory Results - last 24 hr 07/19/24 06:08: WBC 5.2, RBC 3.87 L, Hgb 11.9 L, Hct 37.6 L, MCV 97.2 H, MCH 30.7, MCHC 31.6 L, RDW Std Deviation 51.5 H, RDW Coeff of Eleanor 14.3, Plt Count 141 L, MPV 9.3, Sodium 134 L, Potassium 4.0, Chloride 100, Carbon Dioxide 29.0, Anion Gap 5, BUN 27 H, Creatinine 1.04, Estim Creat Clear Calc 98.17, Est GFR (MDRD) Af Amer 96, Est GFR (MDRD) Non-Af 79, BUN/Creatinine Ratio 26.0 H, G lucose 139 H, Calcium 8.0 L Micro: Microbiology 07/16/24 04:37 Blood Culture (Wb) - Anticubital Right Blood Culture - Preliminary No growth in 48 hours. 07/16/24 04:15 Blood Culture (Wb) - Left Hand Blood Culture - Preliminary No growth in 48 hours. 07/16/24 04:33 Urine, Clean Catch Urine Culture - Final Culture exhibits no growth. 07/16/24 09:57 Mucosa - Nose Respiratory Panel (PCR) - Final 07/16/24 04:33 Urine, Clean Catch Legionella Antigen - Final 07/16/24 04:33 Urine, Clean Catch Streptococcus pneumoniae Antigen (M - Final 07/16/24 08:59 Nasal Secretion MRSA (PCR) - Final Meth. resistant Staph. aureus 07/16/24 04:25 Mucosa - Nose SARS-CoV-2, Influenza & RSV (PCR) - Final Physical Exam Const alert, no apparent distress and healthy appearing Constitutional Narrative: Patient has evidence of cognitive impairment General Appearance: cooperative and well kempt Orientation / Consciousness: awake and oriented to person HEENT normocephalic, head/scalp atraumatic and moist oral mucous membranes Eyes Eyes Narrative: Patient is blind Neck supple, no JVD, thyroid normal and no carotid bruits General: trachea midline Resp normal respiratory effort, no retractions, no use of accessory muscles and clear to auscultation bilaterally Auscultation: Negative for rales, rhonchi or wheezes Cardio regular rate, regular rhythm, S1 normal heart sound, S2 normal heart sound, no murmurs, no rub and no gallops GI normal to inspection, nondistended, normoactive bowel sounds, soft to palpation, non-tender and non-distended Extremity no clubbing, cyanosis or edema Skin no rashes or lesions noted General Skin Exam: no breakdown Neuro CN's II-XII intact bilaterally and no focal motor deficits Neuro Narrative: Patient has evidence of cognitive impairment Sensorium / Orientation: awake and alert Speech: speech normal Psych Psych Narrative: Patient has evidence of cognitive impairment Assessment & Plan Assessment/Plan (1) COPD (chronic obstructive pulmonary disease): PLAN: Plan 1. Community-acquired pneumonia-bacterial in nature-patient's nasal swab was positive for MRSA but I do not suspect the patient has MRSA pneumonia. I will reevaluate the patient's antibiotics tomorrow, chest x-ray will be repeated, CBC will be repeated #2 acute hypoxic respiratory failure secondary to #1-oxygen will be weaned if possible #3 chronic obstructive pulmonary disease-continue prednisone and aerosol treatments #4 acute kidney injury-BMP will be repeated tomorrow, patient appears that his baseline from previous creatinine readings #5 schizoaffective disorder-complicates care, management, recovery, and prognosis Total clinical time spent by myself addressing patient's medical issues, reviewing all of his data, and collaborating with patient's care team: 35 minutes Charges/Coding Visit Charges Inpatient E&M: 81728 Subs Hosp L2
[2024-07-19 21:09] LABS: Vancomycin, Trough Level 18.7 ug/mL (5.0-15.0)
[2024-07-20] VITALS (9 sets, daily range): BP systolic 132–180; BP diastolic 74–89; PULSE 66–78; RESP 14–18; TEMP 36.2–37; O2SAT 92–97; BMI 39.3
--- NOTE | 2024-07-20 00:11 | NURSING ---
this RN to take over care at this time.
--- NOTE | 2024-07-20 02:03 | PCM.RX.CS ---
Consult Antibiotic Management Pharmacy has been consulted to manage selected antibiotic: Vancomycin Type of Intervention Type of Consult: Follow-up Labs Labs: Sodium 134 mmol/L (136-145) L 07/19/24 06:08 Potassium 4.0 mmol/L (3.5-5.1) 07/19/24 06:08 Chloride 100 mmol/L (98-107) 07/19/24 06:08 Carbon Dioxide 29.0 mmol/L (21.0-32.0) 07/19/24 06:08 Anion Gap 5 (5-15) 07/19/24 06:08 BUN 27 mg/dL (7-18) H 07/19/24 06:08 Creatinine 1.04 mg/dL (0.70-1.30) 07/19/24 06:08 Est GFR (MDRD) Af Amer 96 mL/min (>60) 07/19/24 06:08 Est GFR (MDRD) Non-Af 79 mL/min (>60) 07/19/24 06:08 BUN/Creatinine Ratio 26.0 RATIO (10-20) H 07/19/24 06:08 Glucose 139 mg/dL (74-106) H 07/19/24 06:08 Vancomycin Trough 18.7 ug/mL (5.0-15.0) H 07/19/24 20:40 Microbiology Microbiology: Microbiology 07/16/24 04:37 Blood Culture (Wb) - Anticubital Right Blood Culture - Preliminary No growth in 48 hours. 07/16/24 04:15 Blood Culture (Wb) - Left Hand Blood Culture - Preliminary No growth in 48 hours. 07/16/24 04:33 Urine, Clean Catch Urine Culture - Final Culture exhibits no growth. 07/16/24 09:57 Mucosa - Nose Respiratory Panel (PCR) - Final 07/16/24 04:33 Urine, Clean Catch Legionella Antigen - Final 07/16/24 04:33 Urine, Clean Catch Streptococcus pneumoniae Antigen (M - Final 07/16/24 08:59 Nasal Secretion MRSA (PCR) - Final Meth. resistant Staph. aureus 07/16/24 04:25 Mucosa - Nose SARS-CoV-2, Influenza & RSV (PCR) - Final Goal Trough Goal Trough: 15-20 mcg/mL Pharmacy Plan for Drug Dosing Pharmacy Plan for Drug Dosing: Pharmacy Service will continue to monitor and adjust dosing as required. TROUGH 18.7 @ 10.5 HOURS. NO CHANGES, FOLLOW UP TROUGH IN 2 DAYS Follow-Up Labs Follow-Up Labs: Trough: Vancomycin Date/Time Labs Ordered Labs to be done on [date and time ordered]: 07/21 @ 2030
[2024-07-20 04:12] LABS: Absolute Neutrophil Count 3.9 X10^3/uL (2.0-7.7); Basophil# 0.03 X10^3/uL; Basophil% 0.6 % (0-1); Hematocrit 34.9 % (40-54); Hemoglobin 11.7 g/dL (13.0-16.5); Mean Corp Hgb Conc 33.5 g/dL (32-36); Mean Corpuscular Hgb 31.1 pg (27.0-32.0); Mean Corpuscular Volume 92.8 fL (80-94); Mean Platelet Vol. 9.4 fl (6.2-12.0); Monocyte# 0.48 X10^3/uL; Monocyte% 9.6 % (0-10); NRBC Flagged by Analyzer 0 % (0-5); Neutrophil % 77.8 % (47-70); POSITIVE DIFFERENTIAL YES; Platelet Count 141 K/mm3 (150-450); RBC Distribution Width CV 13.8 % (11.6-14.6); Red Blood Count 3.76 M/mm3 (4.6-6.2)
[2024-07-20 04:52] LABS: Anion Gap 5 (5-15); BUN 22 mg/dL (7-18); BUN/Creat Ratio 23.7 RATIO (10-20); Calcium,Total 8.3 mg/dL (8.5-10.1); Chloride 101 mmol/L (98-107); Creatinine, Serum 0.93 mg/dL (0.70-1.30); EST Glomerular Filtration Rate 90 mL/min (>60); Est Glom Filt Rate - Afr Amer 109 mL/min (>60); Estimated Creatinine Clearance 109.79 ml/min; Glucose 161 mg/dL (74-106); Potassium 4.6 mmol/L (3.5-5.1); Sodium Level 138 mmol/L (136-145)
--- NOTE | 2024-07-20 05:55 | RAD_ITS ---
PROCEDURE: CHEST 1 VIEW (PORTABLE) REASON FOR EXAM: Pneumonia. Follow-up examination. TECHNIQUE: AP portable view of the chest. COMPARISON: Prior CT examination dated 07/16/2024. Prior chest x-ray dated 07/16/2024. FINDINGS: The lungs are well aerated. Improved aeration involving the lower lobes. Linear atelectasis within the left lung base. No new focal airspace consolidation, pneumothorax or pleural effusion is seen. Heart size and great vessels are stable. Osseous thorax appears intact. EKG wires overlie the chest. RAD/Chest 1 View (Portable) IMPRESSION: 1. Improved aeration involving the lower lobes, with linear atelectasis within the left lung base. 2. No new focal airspace consolidation identified. Reading Location: [facility]
[2024-07-20] MEDS: hydrALAZINE 10 MG Tablet PO ×3 (05:57→21:08)
[2024-07-20] MEDS: Divalproex Sodium 125 MG SPRINKLE 250 MG PO ×3 (06:02→21:07)
[2024-07-20] MEDS: LORazepam 1 MG Tablet 2 MG PO ×3 (06:02→21:06)
[2024-07-20] MEDS: Potassium Chloride Oral Tablet 10 MEQ 30 MEQ PO (09:36)
[2024-07-20] MEDS: Propranolol LA 80 MG Capsule PO (09:37)
[2024-07-20] MEDS: Fluticasone 0.05% 1 SPRAY NASAL.SRY NASAL (09:37)
[2024-07-20] MEDS: Ferrous Sulfate 325 MG Tablet PO (09:37)
[2024-07-20] MEDS: Benztropine 2 MG Tablet 1 MG PO ×2 (09:37→21:09)
[2024-07-20] MEDS: Enoxaparin 30 MG/0.3 ML Syringe SC (09:38)
[2024-07-20] MEDS: QUEtiapine 100 MG Tablet 300 MG PO ×2 (09:38→21:10)
[2024-07-20] MEDS: Escitalopram Oxalate 10 MG Tablet PO ×2 (09:38→21:09)
[2024-07-20] MEDS: Folic Acid 1 MG Tablet PO (09:39)
[2024-07-20] MEDS: traZODone 100 MG Tablet PO (09:39)
[2024-07-20] MEDS: Lactobacillis Acidophilus 1 CAP PO (09:39)
[2024-07-20] MEDS: Aspirin E.C. 81 MG Tablet PO (09:39)
[2024-07-20] MEDS: predniSONE 20 MG Tablet 40 MG PO (09:40)
[2024-07-20] MEDS: Famotidine 20 MG Tablet PO (09:41)
[2024-07-20] MEDS: amLODIPine 10 MG Tablet PO (09:41)
[2024-07-20] MEDS: Pantoprazole Sodium 40 MG Tablet PO (09:41)
--- NOTE | 2024-07-20 11:28 | CASEMGMT ---
Updates faxed to [facility] with note that pt may discharge today. Jeannette Katz DC Planning Asst.
--- NOTE | 2024-07-20 16:23 | TREXTCAR_ITS ---
Diet Diet Order/Speech Therapy: 07/16/24 06:21 Diet: Cardiac - Heart Healthy Food consistency:: Regular Liquid Consistency:: Regular/Thin Diet Comments: assist with tray set up, orient to tray, dist superv Routine Orders/Code Status Code Status: DNRCC-A (No intubation) DC O2, CPAP, BIPAP needs Home O2 Discharge instructions: Yes Type of respiratory needs?: Oxygen Oxygen frequency: Continuous Continuous oxygen liters per minute: 4 L and With Ambulation Oxygen liters per minute during Ambulation: 5 L Therapies Weight Bearing: Full weight bearing Problem/Diagnosis (1) COPD (chronic obstructive pulmonary disease): Status: Chronic Code(s): J44.9 - Chronic obstructive pulmonary disease, unspecified Plan 1. Community-acquired pneumonia-bacterial in nature-patient's nasal swab was positive for MRSA but I do not suspect the patient has MRSA pneumonia. I will reevaluate the patient's antibiotics tomorrow, chest x-ray will be repeated, CBC will be repeated #2 acute hypoxic respiratory failure secondary to #1-oxygen will be weaned if possible #3 chronic obstructive pulmonary disease-continue prednisone and aerosol treatments #4 acute kidney injury-BMP will be repeated tomorrow, patient appears that his baseline from previous creatinine readings #5 schizoaffective disorder-complicates care, management, recovery, and prognosis Total clinical time spent by myself addressing patient's medical issues, reviewing all of his data, and collaborating with patient's care team: 35 minutes Allergies/Procedures Done in Hospital Allergies acetic acid Allergy (Verified 07/16/24 03:47) PT UNABLE TO RESPOND-NEEDS F/U nut - unspecified (nuts) Allergy (Verified 07/16/24 03:47) PT UNABLE TO RESPOND-NEEDS F/U Penicillins Allergy (Verified 07/16/24 03:47) PT UNABLE TO RESPOND-NEEDS F/U risperidone Allergy (Verified 07/16/24 03:47) PT UNABLE TO RESPOND-NEEDS F/U Procedures: None Type of Care/Length of Stay Estimated LOS: More Than 30 Days Type of Care Needed: Intermediate Rehab Potential: Fair Prognosis: Fair Additional Orders/Day of Discharge H&P will serve as current which was dated: 07/16/24 Day of Discharge: 07/20/24 Dietary and Speech Recommendations Dietitian Recommendations/Changes: Continue Cardiac diet to manage medical conditions. Discharge Plan Admission Admit Date/Time: 07/16/24 05:40 Primary Reason for Your Visit: pneumonia, exacerbation of COPD Attending Provider: Ghanshyam Roche Primary Care Provider: Lex Jiang Consulting Providers: Corrina Huerta; Linus Pedraza Discharge Orders/Prescriptions Prescriptions: New lorazepam 1 mg Tablet 2 mg PO TID Qty: 6 0RF doxycycline monohydrate 100 mg tablet 100 mg PO BID Qty: 10 0RF Rx Instructions: 1 twice a day for 5 days starting 07/21/2024 Continued albuterol sulfate 0.63 mg/3 mL solution for nebulization 0.63 mg inhalation Q4H PRN (Reason: Shortness Of Breath) cyanocobalamin (vitamin B-12) 1,000 mcg Tablet 1,000 mcg PO WE famotidine [Pepcid] 20 mg Tablet 20 mg PO DAILY trazodone 100 mg Tablet 100 mg PO DAILY amlodipine [Norvasc] 10 mg Tablet 10 mg PO DAILY ferrous sulfate [FeroSul] 325 mg (65 mg iron) Tablet 325 mg PO BID benztropine 1 mg Tablet 1 mg PO BID fluticasone propionate [Flonase Allergy Relief] 50 mcg/actuation [place],Suspension 1 spray INTRANASAL DAILY fludrocortisone 0.1 mg Tablet 0.1 mg PO DAILY escitalopram oxalate [Lexapro] 10 mg Tablet 10 mg PO BID quetiapine [Seroquel XR] 300 mg Tablet Extended Release 24 Hr 600 mg PO QHS Fanapt 6 mg tablet 6 mg PO DAILY Fanapt 12 mg tablet 12 mg PO DAILY loperamide 2 mg Capsule 2 mg PO Q4H PRN (Reason: STOOL) aspirin 81 mg Tablet,Delayed Release (Dr/Ec) 81 mg PO DAILY magnesium hydroxide [Milk of Magnesia] 400 mg/5 mL Suspension 30 ml PO Q24H PRN (Reason: Constipation) calcium carbonate 500 mg calcium (1,250 mg) Tablet 500 mg PO BID propranolol 80 mg capsule,extended release 24 hr 80 mg PO DAILY alum-mag hydroxide-simeth 200-200-20 mg/5 mL Suspension 30 ml PO Q4H PRN (Reason: Heartburn) cholecalciferol (vitamin D3) [Vitamin D3] 50 mcg (2,000 unit) Tablet 50 mcg PO DAILY hydralazine 10 mg tablet 10 mg PO TID ondansetron 4 mg tablet,disintegrating 4 mg PO Q6H lorazepam [Ativan] 2 mg Tablet 2 mg PO Q6H PRN (Reason: Agitation) Qty: 6 0RF folic acid 400 mcg tablet 1 mg PO DAILY hydrocortisone 5 mg tablet 15 mg PO DAILY hydrocortisone 10 mg tablet 10 mg PO DAILY lisinopril 20 mg tablet 20 mg PO DAILY Probiotic Blend 2 billion cell-50 mg capsule 1 cap PO DAILY Rx Instructions: give with meal/snack pantoprazole 40 mg tablet,delayed release (DR/EC) 40 mg PO DAILY divalproex 125 mg capsule, delayed rel sprinkle 250 mg PO Q8H hydrocortisone 20 mg tablet 20 mg PO BID Qty: 60 0RF Rx Instructions: 4 tabs BID for 3 days, then 3 tabs BID for 3 days, then 2 tabs BID for 3 days, then 1 tab BID for 3 days. Discontinued lorazepam [Ativan] 2 mg/mL Solution 2 mg IM Q6H PRN (Reason: AGITSTION) lorazepam 2 mg Tablet 2 mg PO TID hydrochlorothiazide 25 mg Tablet 25 mg PO DAILY levofloxacin 500 mg tablet 500 mg PO DAILY potassium chloride 10 mEq capsule, extended release 30 meq PO DAILY Referrals / Follow Up: Lex Jiang MD [Primary Care Provider] - Within 2 Weeks Disposition Disposition (needs filled in before D/C Order can be placed): Custodial Facility
--- NOTE | 2024-07-20 16:41 | DS.PCM_ITS ---
Providers Date of Admission: 07/16/24 Date of Discharge: 07/20/24 Primary Care Physician: Dr. Lex Jiang MD Reason For Visit: RESPIRATORY FAILURE PNA COPD GURJIT Diagnosis Discharge Diagnosis (1) COPD (chronic obstructive pulmonary disease): Status: Chronic Code(s): J44.9 - Chronic obstructive pulmonary disease, unspecified Plan 1. Community-acquired pneumonia-bacterial in nature-patient's nasal swab was positive for MRSA but I do not suspect the patient has MRSA pneumonia. I will reevaluate the patient's antibiotics tomorrow, chest x-ray will be repeated, CBC will be repeated #2 acute hypoxic respiratory failure secondary to #1-oxygen will be weaned if possible #3 chronic obstructive pulmonary disease-continue prednisone and aerosol treatments #4 acute kidney injury-BMP will be repeated tomorrow, patient appears that his baseline from previous creatinine readings #5 schizoaffective disorder-complicates care, management, recovery, and prognosis Total clinical time spent by myself addressing patient's medical issues, reviewing all of his data, and collaborating with patient's care team: 35 minutes Medications at Discharge Home Medications albuterol sulfate 0.63 mg/3 mL solution for nebulization 0.63 mg inhalation Q4H PRN Shortness Of Breath 06/04/22 amlodipine 10 mg tablet (Norvasc) 10 mg PO DAILY BLOOD PRESSURE 06/04/22 benztropine 1 mg tablet 1 mg PO BID 06/04/22 cyanocobalamin (vitamin B-12) 1,000 mcg tablet 1,000 mcg PO WE SUPPLEMENT 06/04/22 escitalopram oxalate 10 mg tablet (Lexapro) 10 mg PO BID MENTAL HEALTH 06/04/22 famotidine 20 mg tablet (Pepcid) 20 mg PO DAILY ACID REFLUX 06/04/22 ferrous sulfate 325 mg (65 mg iron) tablet (FeroSul) 325 mg PO BID SUPPLEMENT 06/04/22 fludrocortisone 0.1 mg tablet 0.1 mg PO DAILY 06/04/22 fluticasone propionate 50 mcg/actuation nasal spray,suspension (Flonase Allergy Relief) 1 spray intranasal DAILY ALLERGIES 06/04/22 iloperidone 12 mg tablet (Fanapt) 12 mg PO DAILY MENTAL HEALTH 06/04/22 iloperidone 6 mg tablet (Fanapt) 6 mg PO DAILY MENTAL HEALTH 06/04/22 quetiapine 300 mg tablet,extended release 24 hr (Seroquel XR) 600 mg PO QHS MENTAL HEALTH 06/04/22 trazodone 100 mg tablet 100 mg PO DAILY MENTAL HEALTH 06/04/22 aluminum-mag hydroxide-simethicone 200 mg-200 mg-20 mg/5 mL oral susp 30 ml PO Q4H PRN Heartburn 07/24/22 aspirin 81 mg tablet,delayed release 81 mg PO DAILY HEART HEALTH 07/24/22 calcium carbonate 500 mg PO BID SUPPLEMENT 07/24/22 cholecalciferol (vitamin D3) 50 mcg (2,000 unit) tablet (Vitamin D3) 50 mcg PO DAILY SUPPLEMENT 07/24/22 loperamide 2 mg capsule 2 mg PO Q4H PRN STOOL 07/24/22 magnesium hydroxide 400 mg/5 mL oral suspension (Milk of Magnesia) 30 ml PO Q24H PRN Constipation 07/24/22 propranolol 80 mg capsule,24 hr,extended release 80 mg PO DAILY BLOOD PRESSURE 07/24/22 L.acidophil-L.casei-B.bifid-B.longum-FOS 2 billion cell-50 mg capsule (Probiotic Blend) 1 cap PO DAILY 06/24/24 divalproex 125 mg capsule,delayed release sprinkle 250 mg PO Q8H 06/24/24 folic acid 400 mcg tablet 1 mg PO DAILY 06/24/24 hydrocortisone 10 mg tablet 10 mg PO DAILY 06/24/24 hydrocortisone 5 mg tablet 15 mg PO DAILY 06/24/24 lisinopril 20 mg tablet 20 mg PO DAILY 06/24/24 pantoprazole 40 mg tablet,delayed release 40 mg PO DAILY 06/24/24 hydrocortisone 20 mg tablet 20 mg PO BID #60 tabs 06/26/24 hydralazine 10 mg tablet 10 mg PO TID 07/16/24 ondansetron 4 mg disintegrating tablet 4 mg PO Q6H 07/16/24 doxycycline monohydrate 100 mg tablet 100 mg PO BID #10 tabs 07/20/24 lorazepam 1 mg tablet 2 mg (2 x 1 mg) PO TID #6 tabs 07/20/24 lorazepam 2 mg tablet (Ativan) 2 mg PO Q6H PRN Agitation #6 tabs 07/20/24 Hospital Course Operations None Procedures None Summary of Care Provided Minutes Spent on Discharge: 32 Hospital Course: This 54-year-old white male was seen in the emergency room at [facility] after being transferred from an extended care facility where he resides due to cough and dyspnea. Patient has a history of COPD and asthma and was not prescribed oxygen at the facility but was placed on 5 L. Patient has developmental delay and psychiatric issues as well as blindness. Patient required Airvo while in the emergency room to maintain his oxygenation, labs revealed a normal white blood cell count, creatinine was elevated at 4.63 and BUN was 35. Chest x-ray showed no pleural effusion and no pneumothorax, CT of the chest was obtained as well as a CT of the abdomen and pelvis. CT of the chest showed evidence of bilateral pneumonia. Patient was admitted to PCU and placed on IV antibiotics for suspected pneumonia, he was given aerosol treatments, he remained on oxygen during his hospital stay and at the time of discharge on 07/20/2024 he required oxygen at his nursing facility at 2 L/min. A nasal swab was obtained during his hospitalization which was positive for MRSA, this examiner did not think MRSA was the cause of his pneumonia. On 07/20/2024, patient was seen and examined:alert, no apparent distress and healthy appearing Constitutional Narrative: Patient has evidence of cognitive impairment General Appearance: cooperative and well kempt Orientation / Consciousness: awake and oriented to person HEENT normocephalic, head/scalp atraumatic and moist oral mucous membranes Eyes Eyes Narrative: Patient is blind Neck supple, no JVD, thyroid normal and no carotid bruits General: trachea midline Resp normal respiratory effort, no retractions, no use of accessory muscles and clear to auscultation bilaterally Auscultation: Negative for rales, rhonchi or wheezes Cardio regular rate, regular rhythm, S1 normal heart sound, S2 normal heart sound, no murmurs, no rub and no gallops GI normal to inspection, nondistended, normoactive bowel sounds, soft to palpation, non-tender and non-distended Extremity no clubbing, cyanosis or edema Skin no rashes or lesions noted General Skin Exam: no breakdown Neuro CN's II-XII intact bilaterally and no focal motor deficits Neuro Narrative: Patient has evidence of cognitive impairment Sensorium / Orientation: awake and alert Speech: speech normal Psych Psych Narrative: Patient has evidence of cognitive impairment Patient was discharged to his behavioral nursing facility in stable condition on 07/20/2024 Weight / BMI Weight Weight: 117.4 kg Body Mass Index (BMI) 39.3 ABG / Lab / Microbiology Data 07/20/24 04:00 07/20/24 04:00 Laboratory: Laboratory Results - last 24 hr 07/19/24 20:40: Vancomycin Trough 18.7 H 07/20/24 04:00: WBC 5.0, RBC 3.76 L, Hgb 11.7 L, Hct 34.9 L, MCV 92.8, MCH 31.1, MCHC 33.5 D, RDW Std Deviation 47.0 H, RDW Coeff of [place] 13.8, Plt Count 141 L, MPV 9.4, Immature Gran % (Auto) 2.000 H, Neut % (Auto) 77.8 H, Lymph % (Auto) 10.0 L, [place] % (Auto) 9.6, Eos % (Auto) 0.0, Baso % (Auto) 0.6, Absolute Neuts (auto) 3.9, Absolute Lymphs (auto) 0.50 L, Nucleated RBC % 0, Sodium 138, Potassium 4.6, Chloride 101, Carbon Dioxide 32.0, Anion Gap 5, BUN 22 H, Creatinine 0.93, Estim Creat Clear Calc 109.79, Est GFR (MDRD) Af Amer 109, Est GFR (MDRD) Non-Af 90, BUN/Creatinine Ratio 23.7 H, Glucose 161 H, Calcium 8.3 L Microbiology: Microbiology 07/16/24 04:37 Blood Culture (Wb) - Anticubital Right Blood Culture - Final No growth in 5 days. 07/16/24 04:15 Blood Culture (Wb) - Left Hand Blood Culture - Final No growth in 5 days. 07/16/24 04:33 Urine, Clean Catch Urine Culture - Final Culture exhibits no growth. 07/16/24 09:57 Mucosa - Nose Respiratory Panel (PCR) - Final 07/16/24 04:33 Urine, Clean Catch Legionella Antigen - Final 07/16/24 04:33 Urine, Clean Catch Streptococcus pneumoniae Antigen (M - Final 07/16/24 08:59 Nasal Secretion MRSA (PCR) - Final Meth. resistant Staph. aureus 07/16/24 04:25 Mucosa - Nose SARS-CoV-2, Influenza & RSV (PCR) - Final Radiography Diagnostic Testing: Radiology Impression Chest/Abdomen/Pelvis CT 07/16/24 04:58 IMPRESSION: 1. Bilateral lung pneumonias as detailed above. Reading Location: [facility] Chest X-Ray 07/20/24 05:55 IMPRESSION: 1. Improved aeration involving the lower lobes, with linear atelectasis within the left lung base. 2. No new focal airspace consolidation identified. Reading Location: [facility] D/C Instructions DC O2, CPAP, BIPAP Needs Home O2 Discharge instructions: Yes Type of respiratory needs?: Oxygen Oxygen frequency: Continuous Continuous oxygen liters per minute: 4 L and With Ambulation Oxygen liters per minute during Ambulation: 5 L DC home with Oxygen: Yes Home O2 MD Review: I have reviewed the oxygen testing, and the patient qualifies for home oxygen equipment and portability. The patient is mobile in the home and the community. Meaningful Use Info Meaningful Use Meaningful Use Diagnoses (Choose all that apply): None applicable Ischemic Stroke Statin Dosing Therapy Reference: STATIN DOSE THERAPY REFERENCE: * Patients > 75 years receive moderate or high dose statin therapy. * Patients 75 years or YOUNGER should receive HIGH intensity statin dose unless contraindicated. You will be required to document reason for non-treatment if statin daily dose does not meet guidelines. HIGH DOSE STATIN THERAPY DAILY Atorvastatin > than or = to 40 mg Rosuvastatin > than or = to 20 mg Amlodipine + Atorvastatin > than or = to 2.5/40 mg Ezetimibe + Simvastatin 10/80 mg Simvastatin 80mg Discharge Plan Admission Admit Date/Time: 07/16/24 05:40 Primary Reason for Your Visit: pneumonia, exacerbation of COPD Attending Provider: Ghanshyam Roche Primary Care Provider: Lex Jiang Consulting Providers: Corrina Huerta; Linus Pedraza Discharge Orders/Prescriptions Prescriptions: New lorazepam 1 mg Tablet 2 mg PO TID Qty: 6 0RF doxycycline monohydrate 100 mg tablet 100 mg PO BID Qty: 10 0RF Rx Instructions: 1 twice a day for 5 days starting 07/21/2024 Continued albuterol sulfate 0.63 mg/3 mL solution for nebulization 0.63 mg inhalation Q4H PRN (Reason: Shortness Of Breath) cyanocobalamin (vitamin B-12) 1,000 mcg Tablet 1,000 mcg PO WE famotidine [Pepcid] 20 mg Tablet 20 mg PO DAILY trazodone 100 mg Tablet 100 mg PO DAILY amlodipine [Norvasc] 10 mg Tablet 10 mg PO DAILY ferrous sulfate [FeroSul] 325 mg (65 mg iron) Tablet 325 mg PO BID benztropine 1 mg Tablet 1 mg PO BID fluticasone propionate [Flonase Allergy Relief] 50 mcg/actuation [place],Suspension 1 spray INTRANASAL DAILY fludrocortisone 0.1 mg Tablet 0.1 mg PO DAILY escitalopram oxalate [Lexapro] 10 mg Tablet 10 mg PO BID quetiapine [Seroquel XR] 300 mg Tablet Extended Release 24 Hr 600 mg PO QHS Fanapt 6 mg tablet 6 mg PO DAILY Fanapt 12 mg tablet 12 mg PO DAILY loperamide 2 mg Capsule 2 mg PO Q4H PRN (Reason: STOOL) aspirin 81 mg Tablet,Delayed Release (Dr/Ec) 81 mg PO DAILY magnesium hydroxide [Milk of Magnesia] 400 mg/5 mL Suspension 30 ml PO Q24H PRN (Reason: Constipation) calcium carbonate 500 mg calcium (1,250 mg) Tablet 500 mg PO BID propranolol 80 mg capsule,extended release 24 hr 80 mg PO DAILY alum-mag hydroxide-simeth 200-200-20 mg/5 mL Suspension 30 ml PO Q4H PRN (Reason: Heartburn) cholecalciferol (vitamin D3) [Vitamin D3] 50 mcg (2,000 unit) Tablet 50 mcg PO DAILY hydralazine 10 mg tablet 10 mg PO TID ondansetron 4 mg tablet,disintegrating 4 mg PO Q6H lorazepam [Ativan] 2 mg Tablet 2 mg PO Q6H PRN (Reason: Agitation) Qty: 6 0RF folic acid 400 mcg tablet 1 mg PO DAILY hydrocortisone 5 mg tablet 15 mg PO DAILY hydrocortisone 10 mg tablet 10 mg PO DAILY lisinopril 20 mg tablet 20 mg PO DAILY Probiotic Blend 2 billion cell-50 mg capsule 1 cap PO DAILY Rx Instructions: give with meal/snack pantoprazole 40 mg tablet,delayed release (DR/EC) 40 mg PO DAILY divalproex 125 mg capsule, delayed rel sprinkle 250 mg PO Q8H hydrocortisone 20 mg tablet 20 mg PO BID Qty: 60 0RF Rx Instructions: 4 tabs BID for 3 days, then 3 tabs BID for 3 days, then 2 tabs BID for 3 days, then 1 tab BID for 3 days. Discontinued lorazepam [Ativan] 2 mg/mL Solution 2 mg IM Q6H PRN (Reason: AGITSTION) lorazepam 2 mg Tablet 2 mg PO TID hydrochlorothiazide 25 mg Tablet 25 mg PO DAILY levofloxacin 500 mg tablet 500 mg PO DAILY potassium chloride 10 mEq capsule, extended release 30 meq PO DAILY Referrals / Follow Up: Lex Jiang MD [Primary Care Provider] - Within 2 Weeks Disposition Disposition (needs filled in before D/C Order can be placed): Assisted Facility Charges/Coding Visit Charges Inpatient E&M: 38894 Disch Hosp >30min
== END 2024-07-20 21:55 | disposition skilled nursing facility (03) | DRG 193 ==
LOC: ED 05:20 → PCU 05:58
PROVIDERS: Hospitalist; Admitting Provider Family Medicine; Emergency Provider Emergency Medicine; PCP Family Medicine; Visit Provider Internal Medicine
DX: J15.9 Unspecified bacterial pneumonia (principal); J96.02 Acute respiratory failure with hypercapnia; J96.01 Acute respiratory failure with hypoxia; E87.20 Acidosis, unspecified; E27.40 Unspecified adrenocortical insufficiency; J44.0 Chronic obstructive pulmonary disease with (acute) lower respiratory infection; N17.9 Acute kidney failure, unspecified; J45.901 Unspecified asthma with (acute) exacerbation; D63.1 Anemia in chronic kidney disease; F25.9 Schizoaffective disorder, unspecified; I10 Essential (primary) hypertension; F32.A Depression, unspecified; E66.812 Obesity, class 2; D50.9 Iron deficiency anemia, unspecified; E78.5 Hyperlipidemia, unspecified; F41.9 Anxiety disorder, unspecified; K21.9 Gastro-esophageal reflux disease without esophagitis; Z66 Do not resuscitate; R73.9 Hyperglycemia, unspecified; Z79.52 Long term (current) use of systemic steroids; R94.31 Abnormal electrocardiogram [ECG] [EKG]; Z68.37 Body mass index [BMI] 37.0-37.9, adult; R62.50 Unspecified lack of expected normal physiological development in childhood; B95.62 Methicillin resistant Staphylococcus aureus infection as the cause of diseases classified elsewhere; H54.8 Legal blindness, as defined in USA
CPT/HCPCS: 36415; 36600; 71045; 71250; 74176; 80048; 80053; 80202; 81001; 82803; 83036; 83605; 83735; 84145; 84484; 85025; 85027; 85610; 85730; 87040; 87086; 87149; 87449; 87631; 87633; 87641; 93005; 97116; 97162; 97166; 97530; 97535; 97802; 99285; A4216; J2405

== ENCOUNTER 2024-08-17 04:05 | Inpatient (IN) | payer MEDICARE, MEDICAID, SELFPAY ==
[2024-08-17] VITALS (18 sets, daily range): BP systolic 112–136; BP diastolic 60–83; PULSE 77–115; RESP 16–30; TEMP 36.6–37.2; O2SAT 77–98; BMI 38.4; BMI 38.1
--- NOTE | 2024-08-17 04:24 | RAD_ITS ---
PROCEDURE: CHEST 1 VIEW (PORTABLE) REASON FOR EXAM: ? ASPIRATION PNEUMONIA TECHNIQUE: Frontal view of the chest. COMPARISON: Chest x-ray dated 07/20/2019. FINDINGS: New patchy bilateral pulmonary infiltrates are present predominantly in the right lung base. Some patchy infiltrates are present at the left lung base. These findings are new since prior examination. No pneumothorax. No acute osseous abnormality seen. The heart is normal in size. RAD/Chest 1 View (Portable) IMPRESSION: Findings are highly worrisome for pneumonia, [id number]. Follow-u p until resolution is recommended. Reading Location: [id number]
[2024-08-17] MEDS: Ondansetron 4 MG/2 ML Vial IV (04:43)
[2024-08-17 04:56] LABS: Absolute Lymphocyte Count 0.54 X10^3/uL (0.83-4.51); Absolute Neutrophil Count 7.5 X10^3/uL (2.0-7.7); Basophil# 0.02 X10^3/uL; Basophil% 0.2 % (0-1); Eosinophils% 3.2 % (0-5); Hemoglobin 11.4 g/dL (13.0-16.5); Lymphocyte # 0.54 X10^3/ul (0.83-4.51); Lymphocyte % 5.8 % (19-41); Mean Corp Hgb Conc 34.5 g/dL (32-36); Mean Corpuscular Hgb 31.4 pg (27.0-32.0); Mean Corpuscular Volume 90.9 fL (80-94); Monocyte# 0.92 X10^3/uL; Monocyte% 9.9 % (0-10); NRBC Flagged by Analyzer 0 % (0-5); Neutrophil # 7.52 X10^3/uL (2.7-7.7); Neutrophil % 80.5 % (47-70); POSITIVE DIFFERENTIAL YES; Platelet Count 160 K/mm3 (150-450); RBC Distribution Width CV 14.3 % (11.6-14.6); RBC Distribution Width SD 47.8 fl (35.1-43.9); Red Blood Count 3.63 M/mm3 (4.6-6.2); White Blood Count 9.3 K/mm3 (4.4-11.0)
[2024-08-17] MEDS: Vancomycin HCl 1,750 MG in 0.9% Normal Saline (500mL Bag) 500 ML 250 MG IV (05:02)
[2024-08-17] MEDS: Cefepime HCl 2 GM in 0.9% Normal Saline (100mL MB+) 100 ML IV ×3 (05:06→21:59)
[2024-08-17 05:10] LABS: Lactic Acid 1.9 mmol/L (0.0-2.0)
[2024-08-17 05:21] LABS: Magnesium 1.2 mg/dL (1.5-2.2); Pro- Brain NATRIURETIC PEPTIDE 133 pg/mL (<=900); Procalcitonin 0.08 ng/mL (<=0.10)
[2024-08-17 05:22] LABS: Anion Gap 11 (5-15); BUN 11 mg/dL (4-19); BUN/Creat Ratio 11.4 RATIO (10-20); Calcium,Total 8.3 mg/dL (7.6-11.0); Carbon Dioxide 28.5 mmol/L (21.0-32.0); Chloride 89 mmol/L (98-108); EST Glomerular Filtration Rate 90 (>60); Estimated Creatinine Clearance 103.77 ml/min (50-250); Glucose 124 mg/dL (70-99); Potassium 4.1 mmol/L (3.3-5.1); Sodium Level 129 mmol/L (133-145)
--- NOTE | 2024-08-17 05:30 | EX.ED.DYSGE1 ---
HPI History of Present Illness Chief Complaint: Shortness of Breath Informant: patient, EMS and SNF Narrative Narrative: Patient is a 54-year-old male from extended-care facility with history of: Legally blind status, CKD stage II per GFR trending, chronic dysphagia, Obesity, Anxiety and Depression/intermittent explosive disorder/schizoaffective disorder, Adrenocortical insufficiency, Chronic anemia, HTN, HLD, Hx cyclic vomiting with gastroparesis, Asthma/COPD, recently discharged 06/26/2024 and 07/20/2024 following evaluation and treatment of acute COPD/asthma exacerbation with associated acute hypoxic respiratory failure. The patient does not require supplemental oxygen at baseline. This evening shelter reports that he began having bouts of vomiting and afterwards they noticed that he was having difficulty breathing and his pulse ox was in the low 80s. They state they tried giving him a breathing treatment which did seem to help his symptoms for a few minutes and then his hypoxia return. With his history of pneumonia and now hypoxia following emesis there was concern for aspiration. They contacted the patient's power of transactional attorney who also concern for pneumonia and advised them to send him to the hospital for further care. They is a DNR comfort care without intubation. [facility] Medical History Acidosis, lactic GURJIT (acute kidney injury) COPD (chronic obstructive pulmonary disease) Hypoxia Pneumonia MRSA (methicillin resistant staph aureus) culture positive Morbid obesity with BMI of 40.0-44.9, adult Intermittent explosive disorder Schizoaffective disorder Acute metabolic encephalopathy Bradycardia Chronic anal fissure Cellulitis Adrenocortical insufficiency Anemia Schizo affective schizophrenia Legally blind Intermittent explosive disorder COPD (chronic obstructive pulmonary disease) Hypertension Asthma Gastroparesis Cyclical vomiting Thrombocythemia Hypocalcemia Anxiety Home Medications ?Medication ?Instructions ?Recorded ?Last Taken ?Type albuterol sulfate 0.63 mg/3 mL 0.63 mg inhalation Q4H PRN 06/04/22 Unknown History solution for nebulization Shortness Of Breath amlodipine 10 mg tablet (Norvasc) 10 mg PO DAILY BLOOD PRESSURE 06/04/22 07/24/22 08:00 History benztropine 1 mg tablet 1 mg PO BID 06/04/22 07/23/22 History cyanocobalamin (vitamin B-12) 1,000 mcg PO WE SUPPLEMENT 06/04/22 07/24/22 08:00 History 1,000 mcg tablet escitalopram oxalate 10 mg tablet 10 mg PO BID MENTAL HEALTH 06/04/22 07/24/22 08:00 History (Lexapro) famotidine 20 mg tablet (Pepcid) 20 mg PO DAILY ACID REFLUX 06/04/22 07/23/22 History ferrous sulfate 325 mg (65 mg 325 mg PO BID SUPPLEMENT 06/04/22 07/24/22 08:00 History iron) tablet (FeroSul) fludrocortisone 0.1 mg tablet 0.1 mg PO DAILY 06/04/22 07/24/22 08:00 History fluticasone propionate 50 1 spray intranasal DAILY ALLERGIES 06/04/22 07/24/22 08:00 History mcg/actuation nasal spray,suspension (Flonase Allergy Relief) iloperidone 12 mg tablet (Fanapt) 12 mg PO DAILY MENTAL HEALTH 06/04/22 07/23/22 History iloperidone 6 mg tablet (Fanapt) 6 mg PO DAILY MENTAL HEALTH 06/04/22 07/24/22 08:00 History quetiapine 300 mg tablet,extended 600 mg PO QHS MENTAL HEALTH 06/04/22 07/23/22 History release 24 hr (Seroquel XR) aluminum-mag hydroxide-simethicone 30 ml PO Q4H PRN Heartburn 07/24/22 Unknown History 200 mg-200 mg-20 mg/5 mL oral susp aspirin 81 mg tablet,delayed 81 mg PO DAILY HEART HEALTH 07/24/22 07/24/22 08:00 History release calcium carbonate 500 mg PO BID SUPPLEMENT 07/24/22 07/24/22 08:00 History cholecalciferol (vitamin D3) 50 50 mcg PO DAILY SUPPLEMENT 07/24/22 07/24/22 08:00 History mcg (2,000 unit) tablet (Vitamin D3) loperamide 2 mg capsule 2 mg PO Q4H PRN STOOL 07/24/22 07/24/22 09:30 History magnesium hydroxide 400 mg/5 mL 30 ml PO Q24H PRN Constipation 07/24/22 Unknown History oral suspension (Milk of Magnesia) propranolol 80 mg capsule,24 80 mg PO DAILY BLOOD PRESSURE 07/24/22 07/24/22 08:00 History hr,extended release L.acidophil-L.casei-B.bifid-B.longum-FOS 1 cap PO DAILY 06/24/24 Unknown History 2 billion cell-50 mg capsule (Probiotic Blend) divalproex 125 mg capsule,delayed 250 mg PO Q8H 06/24/24 Unknown History release sprinkle folic acid 400 mcg tablet 1 mg PO DAILY 06/24/24 Unknown History hydrocortisone 10 mg tablet 10 mg PO DAILY 06/24/24 Unknown History hydrocortisone 5 mg tablet 15 mg PO DAILY 06/24/24 Unknown History lisinopril 20 mg tablet 20 mg PO DAILY 06/24/24 Unknown History pantoprazole 40 mg tablet,delayed 40 mg PO DAILY 06/24/24 Unknown History release hydralazine 10 mg tablet 10 mg PO TID 07/16/24 Unknown History ondansetron 4 mg disintegrating 4 mg PO Q6H 07/16/24 Unknown History tablet lorazepam 1 mg tablet 2 mg (2 x 1 mg) PO TID #6 tabs 07/20/24 Unknown Rx lorazepam 2 mg tablet (Ativan) 2 mg PO Q6H PRN Agitation #6 tabs 07/20/24 Unknown Rx hydrochlorothiazide 25 mg tablet 25 mg PO DAILY 08/17/24 Unknown History lorazepam 2 mg/mL injection syringe 2 mg IM Q6H PRN agitation 08/17/24 Unknown History potassium chloride 10 mEq meq 08/17/24 Unknown History capsule,extended release Allergy/AdvReac Type Severity Reaction Status Date / Time acetic acid Allergy PT UNABLE Verified 08/17/24 04:07 TO RESPOND-NEEDS F/U nut - unspecified (nuts) Allergy PT UNABLE Verified 08/17/24 04:07 TO RESPOND-NEEDS F/U Penicillins Allergy PT UNABLE Verified 08/17/24 04:07 TO RESPOND-NEEDS F/U risperidone Allergy PT UNABLE Verified 08/17/24 04:07 TO RESPOND-NEEDS F/U Family History Father COPD (chronic obstructive pulmonary disease) Mother Hypertension Surgical History History of eye surgery S/P repair of hydrocele Social History housing: other details: Nursing facility with psychiatric focus. Smoking Status: Never smoker alcohol intake: never substance use type: does not use ROS ROS ED Constitutional Constitutional ED: Denies chills or fever(s) ENT ENT ED: Denies sore throat Cardiovascular Cardiovascular: Denies chest pain Respiratory/Chest Respiratory/Chest: Reports dyspnea; Denies cough Gastrointestinal Gastrointestinal: Reports nausea and vomiting; Denies abdominal pain or diarrhea Genitourinary Genitourinary ED: Denies dysuria Musculoskeletal Musculoskeletal: Denies myalgias Integumentary Denies rash Neurologic Neurologic: Denies headache(s) Hematologic/Lymphatic Hematologic/Lymphatic: Denies easy bleeding or easy bruising EXAM Physical Exam Const Vital Signs: 08/17/24 04:07 08/17/24 04:12 08/17/24 04:22 Temperature 98.9 F 98.9 F Temperature Source Oral Oral Pulse Rate 115 H 115 H Respiratory Rate 30 H 30 H Respiratory Effort Short of Breath Respiratory Depth Deep Respiratory Pattern Tachypnea Blood Pressure 135/83 H 135/83 H Blood Pressure Mean 100 100 Pulse Ox 93 93 Oxygen Delivery Method Nasal Cannula Nasal Cannula Nasal Cannula Oxygen Flow Rate (L/min) 6 6 6 Fraction of Inspired Oxygen (FIO2) 08/17/24 04:34 08/17/24 04:34 08/17/24 05:06 Temperature Temperature Source Pulse Rate 114 H 113 H Respiratory Rate 28 H 21 H Respiratory Effort Respiratory Depth Respiratory Pattern Tachypnea Blood Pressure 129/60 H Blood Pressure Mean 83 Pulse Ox 92 92 97 Oxygen Delivery Method Airvo Airvo Oxygen Flow Rate (L/min) 50 Fraction of Inspired Oxygen (FIO2) 50 50 08/17/24 05:12 08/17/24 05:57 08/17/24 05:58 Temperature 98.8 F 98.4 F Temperature Source Oral Pulse Rate 108 H 104 H Respiratory Rate 22 H 19 H Respiratory Effort Respiratory Depth Respiratory Pattern Blood Pressure 129/60 H 112/62 Blood Pressure Mean 83 78 Pulse Ox 98 97 94 Oxygen Delivery Method Airvo Airvo Oxygen Flow Rate (L/min) 50 Fraction of Inspired Oxygen (FIO2) 40 08/17/24 06:00 Temperature 99 F Temperature Source Oral Pulse Rate 99 Respiratory Rate 24 H Respiratory Effort Respiratory Depth Respiratory Pattern Blood Pressure 116/66 Blood Pressure Mean 82 Pulse Ox 93 Oxygen Delivery Method Airvo Oxygen Flow Rate (L/min) 50 Fraction of Inspired Oxygen (FIO2) 40 Positive well nourished, well developed and obese General Appearance ED: well developed; Negative for pallor Nutritional Appearance: obese HEENT HEENT Narrative: No tongue or lip swelling no oral lesions no airway edema or compromise Neck supple and no JVD Neck Narrative: No nuchal rigidity or meningeal signs Resp Resp Narrative: Patient is tachypneic with accessory muscle use Breath sounds are diminished throughout with crackles/rhonchi noted in the bilateral lower lobes greatest on the right Cardio regular rate and regular rhythm Rate: tachycardic and other Other Details: Tachycardic rate with regular rhythm Radial and carotid pulses are equal and symmetric GI normal to inspection, nondistended, normoactive bowel sounds, non-tender, non-distended and no masses GI Narrative: Soft nontender nondistended with normal active bowel sounds no voluntary guarding or rigidity or pulsatile mass Auscultation: normoactive bowel sounds Palpation: soft Extremity normal to inspection Extremity Narrative: No asymmetric edema no pitting edema negative Homans' sign bilaterally Neuro CN's II-XII intact bilaterally and no sensory deficits noted Neuro Narrative: Patient is at his baseline mental status without focal neurologic deficit Sensorium / Orientation: alert Psych Mood & Affect: anxious Skin no rashes or lesions noted General Skin Exam: Negative for jaundice or pallor MDM MDM MDM Narrative Medical decision making narrative: Patient arrived to the ER tachypneic and tachycardic and satting in the high 80s/low 90s on nasal cannula. Despite this he had persistent increased work of breathing. His history of reported bouts of vomiting followed by hypoxia is most concerning for aspiration. Secondary to this basic blood work with blood cultures and viral swabs were obtained. X-ray was ordered and it shows bibasilar infiltrates greatest in the right which would be concerning/consistent with aspiration. Secondary to this he was started on cefepime and vancomycin to cover for broad-spectrum microbial control. He was placed on Airvo which did help reduce his work of breathing and improve his pulse ox to 98%. Blood work does not show leukocytosis or left shift or lactic acidosis going against sepsis at this time. He also has had resolution of his previous GURJIT as his creatinine is now normal at 1. At this time his workup history and exam is consistent with aspiration pneumonia but with concern it will progress over the next few days and the fact that he is now requiring supplemental oxygen which he does not typically need at baseline I do not feel that returning to the shelter is his best method of care. Therefore the hospitalist was contacted for admission and they agreed to accept the patient for further care. As the patient is a DNR DNI and at this time does not have laboratory findings to suggest sepsis there is no need for ICU admission and patient will be placed in the PCU for continued care. History & Record Review Discussion w/independent historian: EMS personnel and Patient Lab Data Attestation: I reviewed the patient's lab results. Labs: Laboratory Results - last 24 hr 08/17/24 04:40 WBC 9.3 RBC 3.63 L Hgb 11.4 L Hct 33.0 L MCV 90.9 MCH 31.4 MCHC 34.5 RDW Std Deviation 47.8 H RDW Coeff of Eleanor 14.3 Plt Count 160 MPV 9.0 Immature Gran % (Auto) 0.400 Neut % (Auto) 80.5 H Lymph % (Auto) 5.8 L [place] % (Auto) 9.9 Eos % (Auto) 3.2 Baso % (Auto) 0.2 Absolute Neuts (auto) 7.5 Absolute Lymphs (auto) 0.54 L Nucleated RBC % 0 Sodium 129 L Potassium 4.1 Chloride 89 L Carbon Dioxide 28.5 Anion Gap 11 BUN 11 Creatinine 1.00 Estim Creat Clear Calc 103.77 Est GFR (MDRD) Non-Af 90 BUN/Creatinine Ratio 11.4 Glucose 124 H Lactic Acid 1.9 Calcium 8.3 Magnesium 1.2 L NT pro BNP II 133 Procalcitonin 0.08 Radiography Diagnostic Testing: Clinical Impression(s) from Imaging Studies Chest X-Ray 08/17/24 04:24 IMPRESSION: Findings are highly worrisome for pneumonia, [id number]. Follow-up until resolution is recommended. Reading Location: [id number] Chest x-ray as interpreted by the emergency medicine physician reveals bibasilar opacities right greater than left consistent/concerning for pneumonia Critical Care Time Critical Care Time: Yes Critical care time (excluding procedures): Discussing w/Patient &/or Family/Mold Insert Changer, Arranging Admission or Transfer and - (Critical care time of 31 minutes) Discharge Plan Dx/Rx/DC Orders Clinical Impression: Acute respiratory failure with hypoxia, Aspiration pneumonia, Schizoaffective disorder Disposition Disposition: [facility]
--- NOTE | 2024-08-17 06:55 | HP.PCM.HOS_ITS ---
HPI - General General Date of Admission: 08/17/24 Date of Service: 08/17/24 Chief Complaint: Shortness of breath HPI Narrative TEGAN FUENTES, is a 54-year-old male with a history of schizoaffective disorder, adrenocortical insufficiency, chronic anemia, hypertension, cyclical vomiting with gastroparesis, asthma/COPD who presented [facility] ED 08/17/2024 from extended-care facility due to hypoxia. History obtained mostly through report given patient will wake up but only selectively answers questions. Reportedly at the [facility] the patient was having nausea with vomiting and then became hypoxic and there was concern for aspiration, he was placed on O2 and is not on O2 chronically but did not recover so he was brought to the ED. On arrival to the ED heart rate 115 and patient 93% on 6 L breathing 30 times a minute, ultimately requiring transition to Airvo. Chest x- ray showed bilateral pneumonia and it was suspected that patient likely aspirated given he became hypoxic as he was vomiting. Patient given broad- spectrum antibiotics and hospitalist contacted for admission. Patient has DNR on front of chart. At bedside patient wakes up but only asks for something for his dry eyes and dry mouth and selectively would not answer other questions or would mumble incomprehensible answers, unable to obtain additional history [facility] Medical History Acidosis, lactic GURJIT (acute kidney injury) COPD (chronic obstructive pulmonary disease) Hypoxia Pneumonia MRSA (methicillin resistant staph aureus) culture positive Morbid obesity with BMI of 40.0-44.9, adult Intermittent explosive disorder Schizoaffective disorder Acute metabolic encephalopathy Bradycardia Chronic anal fissure Cellulitis Adrenocortical insufficiency Anemia Schizo affective schizophrenia Legally blind Intermittent explosive disorder COPD (chronic obstructive pulmonary disease) Hypertension Asthma Gastroparesis Cyclical vomiting Thrombocythemia Hypocalcemia Anxiety Home Medications ?Medication ?Instructions ?Recorded ?Last Taken ?Type albuterol sulfate 0.63 mg/3 mL 0.63 mg inhalation Q4H PRN 06/04/22 Unknown History solution for nebulization Shortness Of Breath amlodipine 10 mg tablet (Norvasc) 10 mg PO DAILY BLOOD PRESSURE 06/04/22 07/24/22 08:00 History benztropine 1 mg tablet 1 mg PO BID 06/04/2207/23/ 3 History cyanocobalamin (vitamin B-12) 1,000 mcg PO WE SUPPLEME NT 06/04/22 07/24/22 08:00 History 1,000 mcg tablet escitalopram oxalate 10 mg tablet 10 mg PO BID MENTAL HEALTH 06/04/22 07/24/22 08:00 History (Lexapro) famotidine 20 mg tablet (Pepcid) 20 mg PO DAILY ACID R EFLUX 06/04/22 07/23/22 History ferrous sulfate 325 mg (65 mg 325 mg PO BID SUPPLEMENT 06/04/22 07/24/22 08:00 History iron) tablet (FeroSul) fludrocortisone 0.1 mg tablet 0.1 mg PO DAILY 06/04/22 07/24/22 08:00 History fluticasone propionate 50 1 spray intranasal DAILY ALL ERGIES 06/04/22 07/24/22 08:00 History mcg/actuation nasal spray,suspension (Flonase Allergy Relief) iloperidone 12 mg tablet (Fanapt) 12 mg PO DAILY [facility] 06/04/22 07/23/22 History iloperidone 6 mg tablet (Fanapt) 6 mg PO DAILY MENTAL HEALTH 06/04/22 07/24/22 08:00 History quetiapine 300 mg tablet,extended 600 mg PO QHS MENTAL HEALTH 06/04/22 07/23/22 History release 24 hr (Seroquel XR) aluminum-mag hydroxide-simethicone 30 ml PO Q4H PRN He artburn 07/24/22 Unknown History 200 mg-200 mg-20 mg/5 mL oral susp aspirin 81 mg tablet,delayed 81 mg PO DAILY HEART HEAL TH 07/24/22 07/24/22 08:00 History release calcium carbonate 500 mg PO BID SUPPLEMENT 07/24/22 08:00 History cholecalciferol (vitamin D3) 50 50 mcg PO DAILY SUPPLE MENT 07/24/22 07/24/22 08:00 History mcg (2,000 unit) tablet (Vitamin D3) loperamide 2 mg capsule 2 mg PO Q4H PRN STOOL 07/24/22 09:30 History magnesium hydroxide 400 mg/5 mL 30 ml PO Q24H PRN Cons tipation 07/24/22 Unknown History oral suspension (Milk of Magnesia) propranolol 80 mg capsule,24 80 mg PO DAILY BLOOD PRES SURE 07/24/22 07/24/22 08:00 History hr,extended release L.acidophil-L.casei-B.bifid-B.longum-FOS 1 cap PO BAILEY Y 06/24/24 Unknown History 2 billion cell-50 mg capsule (Probiotic Blend) divalproex 125 mg capsule,delayed 250 mg PO Q8H Unknown History release sprinkle folic acid 400 mcg tablet 1 mg PO DAILY 06/24/24 Unkno wn History hydrocortisone 10 mg tablet 10 mg PO DAILY 06/24/24 Un known History hydrocortisone 5 mg tablet 15 mg PO DAILY 06/24/24 Unk nown History lisinopril 20 mg tablet 20 mg PO DAILY 06/24/24 Unkn own History pantoprazole 40 mg tablet,delayed 40 mg PO DAILY 06/24 Unknown History release hydralazine 10 mg tablet 10 mg PO TID 07/16/24 Unknow n History ondansetron 4 mg disintegrating 4 mg PO Q6H 07/16/24 U nknown History tablet lorazepam 1 mg tablet 2 mg (2 x 1 mg) PO TID #6 ta bs 07/20/24 Unknown Rx lorazepam 2 mg tablet (Ativan) 2 mg PO Q6H PRN Agitati on #6 tabs 07/20/24 Unknown Rx hydrochlorothiazide 25 mg tablet 25 mg PO DAILY Unknown History lorazepam 2 mg/mL injection syringe 2 mg IM Q6H PRN ag itation 08/17/24 Unknown History potassium chloride 10 mEq meq 08/17/24 Unknown History capsule,extended release Allergy/AdvReac Type Severity Reaction Status Date / Time acetic acid Allergy PT UNABLE Verified 08/17/24 04:07 TO RESPOND-NEEDS F/U nut - unspecified (nuts) Allergy PT UNABLE Verified 08/17/24 04:07 TO RESPOND-NEEDS F/U Penicillins Allergy PT UNABLE Verified 08/17/24 04:07 TO RESPOND-NEEDS F/U risperidone Allergy PT UNABLE Verified 08/17/24 04:07 TO RESPOND-NEEDS F/U Family History Father COPD (chronic obstructive pulmonary disease) Mother Hypertension Surgical History History of eye surgery S/P repair of hydrocele Social History housing: other details: Nursing facility with psychiatric focus. Smoking Status: Never smoker alcohol intake: never substance use type: does not use ROS ROS Narrative Unable to obtain secondary to patient mental status and cooperation Vital Signs Vital Signs Vital Signs: 08/17/24 04:07 08/17/24 04:12 08/17/24 04:22 Temperature 98.9 F 98.9 F Temperature Source Oral Oral Pulse Rate 115 H 115 H Respiratory Rate 30 H 30 H Respiratory Effort Short of Breath Respiratory Depth Deep Respiratory Pattern Tachypnea Blood Pressure 135/83 H 135/83 H Blood Pressure Mean 100 100 Pulse Ox 93 93 Oxygen Delivery Method Nasal Cannula Nasal Cannula Nasal Cannula Oxygen Flow Rate (L/min) 6 6 6 Fraction of Inspired Oxygen (FIO2) 08/17/24 04:34 08/17/24 04:34 08/17/24 05:06 Temperature Temperature Source Pulse Rate 114 H 113 H Respiratory Rate 28 H 21 H Respiratory Effort Respiratory Depth Respiratory Pattern Tachypnea Blood Pressure 129/60 H Blood Pressure Mean 83 Pulse Ox 92 92 97 Oxygen Delivery Method Airvo Airvo Oxygen Flow Rate (L/min) 50 Fraction of Inspired Oxygen (FIO2) 50 50 08/17/24 05:12 08/17/24 05:57 08/17/24 05:58 Temperature 98.8 F 98.4 F Temperature Source Oral Pulse Rate 108 H 104 H Respiratory Rate 22 H 19 H Respiratory Effort Respiratory Depth Respiratory Pattern Blood Pressure 129/60 H 112/62 Blood Pressure Mean 83 78 Pulse Ox 98 97 94 Oxygen Delivery Method Airvo Airvo Oxygen Flow Rate (L/min) 50 Fraction of Inspired Oxygen (FIO2) 40 08/17/24 06:00 Temperature 99 F Temperature Source Oral Pulse Rate 99 Respiratory Rate 24 H Respiratory Effort Respiratory Depth Respiratory Pattern Blood Pressure 116/66 Blood Pressure Mean 82 Pulse Ox 93 Oxygen Delivery Method Airvo Oxygen Flow Rate (L/min) 50 Fraction of Inspired Oxygen (FIO2) 40 Weight Weight: 114.6 kg Body Mass Index (BMI) 38.4 Physical Exam Narrative General: Wakes up, selectively answers questions HEENT: Atraumatic, Eyes: Keeps eyes closed as he feels like they are dry Neck: Supple Respiratory: Scattered wheezing with increased respiratory effort Cardiovascular: Regular rate and rhythm GI: Soft, nontender, no rebound, guarding, rigidity Extremities: No edema Musculoskeletal: Moving all extremities Neuro: No overt focal neurological deficits though patient not participating in neuroexam Skin: No rashes appreciated Psych: Intermittent cooperation Results Lab / Micro Data 08/17/24 04:40 08/17/24 04:40 Labs: Laboratory Results - last 24 hr 08/17/24 04:40: WBC 9.3, RBC 3.63 L, Hgb 11.4 L, Hct 33.0 L, MCV 90.9, MCH 31.4, MCHC 34.5, RDW Std Deviation 47.8 H, RDW Coeff of Eleanor 14.3, Plt Count 160, MPV 9.0, Immature Gran % (Auto) 0.400, Neut % (Auto) 80.5 H, Lymph % (Auto) 5.8 L, [place] % (Auto) 9.9, Eos % (Auto) 3.2, Baso % (Auto) 0.2, Absolute Neuts (auto) 7.5, Absolute Lymphs (auto) 0.54 L, Nucleated RBC % 0, Sodium 129 L, Potassium 4.1, Chloride 89 L, Carbon Dioxide 28.5, Anion Gap 11, BUN 11, Creatinine 1.00, Estim Creat Clear Calc 103.77, Est GFR (MDRD) Non-Af 90, BUN/Creatinine Ratio 11.4, Glucose 124 H, Lactic Acid 1.9, Calcium 8.3, Magnesium 1.2 L, NT pro BNP II 133, Procalcitonin 0.08 Micro: Microbiology 08/17/24 04:34 Mucosa - Nose SARS-CoV-2, Influenza & RSV (PCR) - Final Imaging Radiology Impression Chest X-Ray 08/17/24 04:24 IMPRESSION: Findings are highly worrisome for pneumonia, [id number]. Follow-up until resolution is recommended. Reading Location: [id number] Assessment & Plan Assessment/Plan (1) Acute respiratory failure with hypoxia: (2) Aspiration pneumonia: (3) Schizoaffective disorder: PLAN: Plan # Acute hypoxic respiratory failure secondary to bilateral pneumonia suspected due to aspiration -Imaging: Chest x-ray concerning for bilateral pneumonia -DuoNebs and as needed albuterol -Sputum culture, COVID ordered, respiratory panel ordered -Urine antigens -Mucinex, I/S -Vancomycin and cefepime continued from ED # Nausea and vomiting -Will consult speech due to the concern for aspiration -Patient does have history of gastroparesis and cyclical vomiting but will obtain KUB for further evaluation, not actively vomiting at this time in the ED -Zofran as needed #Asthma/COPD -Nebs -I/S -Supportive care #Chronic normocytic anemia -No evidence of ongoing blood loss or indication of blood loss -Hgb 11.4, at baseline # Hyponatremia -Will hold hydrochlorothiazide -Repeat this afternoon -No further worsening will obtain further workup # Adrenal insufficiency -Continue patient's home fludrocortisone, given his severe pneumonia we will hold oral hydrocortisone and give IV stress dose cortisone # Schizoaffective disorder -Continue patient's home medications # Hypomagnesemia -Replace and repeat in the a.m. #Hypertension -Patient's blood pressure 116/66 -Add back agents as blood pressure increases #DVT ppx: Lovenox subcu Laila Corbin MD Charges/Coding Visit Charges Inpatient E&M: 82521 Init Hosp L2
--- NOTE | 2024-08-17 09:00 | RAD_ITS ---
EXAM: XR Abdomen, 1 View CLINICAL INDICATION: N/V TECHNIQUE: Frontal supine view of the abdomen/pelvis. COMPARISON: No relevant prior studies available. FINDINGS: GASTROINTESTINAL TRACT: Fecal retention in the colon consistent with constipation. No dilation. BONES/JOINTS: Unremarkable. No acute fracture. RAD/Abdomen Single View (Portable) IMPRESSION: Fecal retention in the colon consistent with constipation. Reading Location: [id number]
--- NOTE | 2024-08-17 09:00 | PHA.PHARE_ITS ---
Consult Antibiotic Management Pharmacy has been consulted to manage selected antibiotic: Vancomycin Type of Intervention Type of Consult: New start Suspected Infection Suspected Infection: Pneumonia Prior Doses of Antibiotics Prior Doses of Antibiotics Received/Current Regimen: received vanc 1750mg IV x1 in E.R. at 05:02 today Labs Labs: Sodium 129 mmol/L (133-145) L 08/17/24 04:40 Potassium 4.1 mmol/L (3.3-5.1) 08/17/24 04:40 Chloride 89 mmol/L (98-108) L 08/17/24 04:40 Carbon Dioxide 28.5 mmol/L (21.0-32.0) 08/17/24 04:40 Anion Gap 11 (5-15) 08/17/24 04:40 BUN 11 mg/dL (4-19) 08/17/24 04:40 Creatinine 1.00 mg/dL (0.70-1.20) 08/17/24 04:40 Est GFR (MDRD) Non-Af 90 (>60) 08/17/24 04:40 BUN/Creatinine Ratio 11.4 RATIO (10-20) 08/17/24 04:40 Glucose 124 mg/dL (70-99) H 08/17/24 04:40 Microbiology Microbiology: Microbiology 08/17/24 04:34 Mucosa - Nose SARS-CoV-2, Influenza & RSV (PCR) - Final Dosing Weight Weight used for dosin.7 kg Estimated Creatinine Clearance Estimated Creatinine Clearance: 104 ml/min Goal Trough Goal Trough: 15-20 mcg/mL Pharmacy Plan for Drug Dosing Pharmacy Plan for Drug Dosing: Starting 12 hours after the E.R. dose, continue with 1500mg q12h. The patient had recently been on 1250mg q12h recently at [facility] with appropriate trough level after renal function improved. Will dose slightly higher this time to start since renal function is good. Check a trough before the 4th overall dose. Pharmacy Service will continue to monitor and adjust dosing as required. Follow-Up Labs Follow-Up Labs: Trough: Vancomycin Date/Time Labs Ordered Labs to be done on [date and time ordered]: 08/18/24 16:30
[2024-08-17] MEDS: Ipratropium/Albuterol Sulfate 3 ML AMPUL.NEB INHALATION ×3 (10:45→23:40)
[2024-08-17] MEDS: Hydrocortisone Sod Succinate 100 MG/2 ML Vial 50 MG IV ×2 (11:19→17:47)
[2024-08-17] MEDS: 0.9% Saline Lock 10 ML Syringe IV ×3 (11:19→17:48)
[2024-08-17] MEDS: Enoxaparin 40 MG/0.4 ML Syringe SC (11:19)
[2024-08-17] MEDS: Magnesium Sulfate 4gm/100mL 4 GM/100 ML IV.SOLN. IV (11:39)
[2024-08-17] MEDS: Bisacodyl 10 MG Suppository RC (12:39)
[2024-08-17 13:18] LABS: Anion Gap 8 (5-15); BUN 9 mg/dL (4-19); BUN/Creat Ratio 10.4 RATIO (10-20); Calcium,Total 7.9 mg/dL (7.6-11.0); Carbon Dioxide 31.6 mmol/L (21.0-32.0); Chloride 94 mmol/L (98-108); Creatinine, Serum 0.87 mg/dL (0.70-1.20); EST Glomerular Filtration Rate 102 (>60); Estimated Creatinine Clearance 118.79 ml/min (50-250); Glucose 121 mg/dL (70-99); Potassium 3.8 mmol/L (3.3-5.1); Sodium Level 134 mmol/L (133-145)
--- NOTE | 2024-08-17 14:21 | CASEMGMT ---
ACE called patient's sister/guardian Courtney and confirmed the plan is for patient to return to [facility] at d/c. Mercedes BALLESTEROS
--- NOTE | 2024-08-17 15:19 | CASEMGMT ---
Discharge Planning Updates faxed to [facility]. Jeannette Katz DC Planning Asst.
[2024-08-17] MEDS: Vancomycin HCl 1,500 MG in 0.9% Normal Saline (500mL Bag) 500 ML 250 MG IV (17:47)
[2024-08-18] VITALS (13 sets, daily range): BP systolic 121–169; BP diastolic 68–91; PULSE 90–100; RESP 16–20; TEMP 36.1–37.1; O2SAT 94–98
[2024-08-18] MEDS: Hydrocortisone Sod Succinate 100 MG/2 ML Vial 50 MG IV ×4 (00:33→22:01)
[2024-08-18] MEDS: Ipratropium/Albuterol Sulfate 3 ML AMPUL.NEB INHALATION ×6 (03:05→23:40)
[2024-08-18] MEDS: Vancomycin HCl 1,500 MG in 0.9% Normal Saline (500mL Bag) 500 ML 250 MG IV (05:07)
[2024-08-18] MEDS: Cefepime HCl 2 GM in 0.9% Normal Saline (100mL MB+) 100 ML IV ×3 (05:09→22:00)
[2024-08-18] MEDS: 0.9% Saline Lock 10 ML Syringe IV ×2 (06:58→22:01)
[2024-08-18 07:24] LABS: Absolute Lymphocyte Count 0.26 X10^3/uL (0.83-4.51); Absolute Neutrophil Count 4.7 X10^3/uL (2.0-7.7); Basophil# 0.02 X10^3/uL; Basophil% 0.4 % (0-1); Eosinophil# 0.01 X10^3/uL; Eosinophils% 0.2 % (0-5); Hematocrit 31.3 % (40-54); Hemoglobin 10.6 g/dL (13.0-16.5); Lymphocyte # 0.26 X10^3/ul (0.83-4.51); Lymphocyte % 4.9 % (19-41); Mean Corp Hgb Conc 33.9 g/dL (32-36); Mean Corpuscular Hgb 31.5 pg (27.0-32.0); Mean Corpuscular Volume 92.9 fL (80-94); Mean Platelet Vol. 9.3 fl (6.2-12.0); Monocyte# 0.24 X10^3/uL; Monocyte% 4.5 % (0-10); NRBC Flagged by Analyzer 0 % (0-5); Neutrophil # 4.73 X10^3/uL (2.7-7.7); Neutrophil % 89.2 % (47-70); POSITIVE DIFFERENTIAL YES; Platelet Count 150 K/mm3 (150-450); RBC Distribution Width CV 13.9 % (11.6-14.6); RBC Distribution Width SD 47.2 fl (35.1-43.9); Red Blood Count 3.37 M/mm3 (4.6-6.2); White Blood Count 5.3 K/mm3 (4.4-11.0)
[2024-08-18 08:14] LABS: Magnesium 2.1 mg/dL (1.5-2.2)
[2024-08-18 08:19] LABS: Anion Gap 7 (5-15); BUN 7 mg/dL (4-19); BUN/Creat Ratio 10.6 RATIO (10-20); Calcium,Total 7.8 mg/dL (7.6-11.0); Carbon Dioxide 29.7 mmol/L (21.0-32.0); Chloride 104 mmol/L (98-108); Creatinine, Serum 0.69 mg/dL (0.70-1.20); EST Glomerular Filtration Rate 110 (>60); Estimated Creatinine Clearance 149.77 ml/min (50-250); Glucose 135 mg/dL (70-99); Potassium 3.4 mmol/L (3.3-5.1); Sodium Level 140 mmol/L (133-145)
[2024-08-18] MEDS: Enoxaparin 40 MG/0.4 ML Syringe SC (08:39)
--- NOTE | 2024-08-18 09:21 | PN.HOSP_ITS ---
Reason for Visit Reason for Visit: Diagnoses Schizoaffective disorder, unspecified (08/17/24) Pneumonitis due to inhalation of food and vomit (08/17/24) Acute respiratory failure with hypoxia (08/17/24) Subjective Subjective Patient sitting up in chair, was walking in the halls with physical therapy and did fairly well, having a lot of coughing after sitting down and has difficulty answering questions because of his mental status and coughing, reports stomach is feeling somewhat better Objective Data Objective Data Vital Signs: Vital Signs Temp Pulse Resp BP Pulse Ox O2 Del Method O2 Flow Rate 97.5 F L 97 18 159/76 H 94 High Flow 5 08/18/24 08:35 08/18/24 08:35 08/18/24 08:35 08/18/24 08:35 08/18/24 08:35 08/18/24 08:35 08/18/24 08:35 FiO2 94 08/17/24 09:51 Oxygen Flow Rate (L/min) 5 Oxygen Delivery Method High Flow Weight: 113.7 kg Body Mass Index (BMI) 38.1 Intake & Output: Intake and Output for Last 24 Hours 08/16/24 08/17/24 08/18/24 23:59 23:59 23:59 Intake Total 1465 / 1465 630 / 630 Output Total 1500 / 1500 0 / 0 Balance -35 / -35 630 / 630 Lab / Micro Data 08/18/24 06:22 08/18/24 06:22 Labs: Laboratory Results - last 24 hr 08/17/24 12:10: Sodium 134, Potassium 3.8, Chloride 94 L, Carbon Dioxide 31.6, Anion Gap 8, BUN 9, Creatinine 0.87, Estim Creat Clear Calc 118.79, Est GFR (MDRD) Non-Af 102, BUN/Creatinine Ratio 10.4, Glucose 121 H, Calcium 7.9 08/18/24 06:22: WBC 5.3, RBC 3.37 L, Hgb 10.6 L, Hct 31.3 L, MCV 92.9, MCH 31.5, MCHC 33.9, RDW Std Deviation 47.2 H, RDW Coeff of Eleanor 13.9, Plt Count 150, MPV 9.3, Immature Gran % (Auto) 0.800, Neut % (Auto) 89.2 H, Lymph % (Auto) 4.9 L, [place] % (Auto) 4.5, Eos % (Auto) 0.2, Baso % (Auto) 0.4, Absolute Neuts (auto) 4.7, Absolute Lymphs (auto) 0.26 L, Nucleated RBC % 0, Sodium 140, Potassium 3.4, Chloride 104, Carbon Dioxide 29.7, Anion Gap 7, BUN 7, Creatinine 0.69 L, Estim Creat Clear Calc 149.77, Est GFR (MDRD) Non-Af 110, BUN/Creatinine Ratio 10.6, Glucose 135 H, Calcium 7.8, Magnesium 2.1 Micro: Microbiology 08/17/24 12:56 Mucosa - Nose Respiratory Panel (PCR) - Final 08/17/24 09:50 Mucosa - Nasopharyngeal Coronavirus COVID-19 PCR - Final 08/17/24 09:30 Urine, Clean Catch Legionella Antigen - Final 08/17/24 09:30 Urine, Clean Catch Streptococcus pneumoniae Antigen (M - Final 08/17/24 04:34 Mucosa - Nose SARS-CoV-2, Influenza & RSV (PCR) - Final Radiography Diagnostic Testing: Radiology Impression KUB X-Ray 08/17/24 09:00 IMPRESSION: Fecal retention in the colon consistent with constipation. Reading Location: [facility] Physical Exam Narrative General: Alert HEENT: Atraumatic Eyes: Keeps eyes closed Neck: Supple Respiratory: Difficult to assess as every time I attempted to auscultate patient would start coughing Cardiovascular: Regular rate GI: Soft, nontender, nondistended Extremities: No edema Musculoskeletal: Moving all extremities Neuro: No overt focal neurological deficits though patient not able to fully complete neuroexam Skin: No rashes appreciated Psych: Attempts to be cooperative Assessment & Plan Assessment/Plan (1) Acute respiratory failure with hypoxia: (2) Aspiration pneumonia: (3) Schizoaffective disorder: PLAN: Plan # Acute hypoxic respiratory failure secondary to bilateral pneumonia suspected due to aspiration -Imaging: Chest x-ray concerning for bilateral pneumonia -DuoNebs and as needed albuterol -Sputum culture, COVID ordered, respiratory panel ordered -Urine antigens -Mucinex, I/S -Vancomycin and cefepime continued from ED -08/18: Continue antibiotics, patient currently 94% on 5 L high flow, continue nebs # Nausea and vomiting -Will consult speech due to the concern for aspiration -Patient does have history of gastroparesis and cyclical vomiting but will obtain KUB for further evaluation, not actively vomiting at this time in the ED -Zofran as needed -08/18: KUB showed constipation, Dulcolax suppository given yesterday #Asthma/COPD -Nebs -I/S -Supportive care -08/18: Patient on scheduled nebulizers #Chronic normocytic anemia -No evidence of ongoing blood loss or indication of blood loss -Hgb 11.4, at baseline -08/18: Hemoglobin 10.6, no active bleeding noted, continue to monitor # Hyponatremia?resolved -Will hold hydrochlorothiazide -Repeat this afternoon -No further worsening will obtain further workup -08/18: Resolved, sodium 140, continue to hold hydrochlorothiazide # Adrenal insufficiency -Continue patient's home fludrocortisone, given his severe pneumonia we will hold oral hydrocortisone and give IV stress dose cortisone -08/18: On stress dose steroids, vitally stable and not critically ill so we will begin to wean, continue fludrocortisone # Schizoaffective disorder -Continue patient's home medications -08/18: Patient no longer n.p.o. so they will to continue home medications, again Fanapt unfortunately not on formulary # Hypomagnesemia -Replace and repeat in the a.m. -08/18: Resolved #Hypertension -Patient's blood pressure 116/66 -Add back agents as blood pressure increases -08/18: Patient more hypertensive today but was n.p.o., no will be will go back on his home medications, if still hypertensive may need to consider adding or adjusting medications, as needed hydralazine for now #DVT ppx: Lovenox subcu Laila Corbin MD Charges/Coding Visit Charges Inpatient E&M: 58924 Subs Hosp L2
[2024-08-18] MEDS: Pantoprazole Sodium 40 MG in 0.9% Normal Saline (100mL MB+) 100 ML 330 MG IV (11:21)
[2024-08-18] MEDS: Lorazepam 2 MG/ML WCH Syringe 1 MG IV (11:21)
[2024-08-18] MEDS: Valproate Sodium 250 MG in Dextrose 5%-Water (50mL Bag) 50 ML 50 MG IV (11:21)
[2024-08-18] MEDS: LORazepam 1 MG Tablet 2 MG PO ×2 (14:51→21:59)
[2024-08-18] MEDS: Benzonatate 100 MG Capsule PO ×2 (14:51→22:00)
[2024-08-18] MEDS: Divalproex Sodium 125 MG SPRINKLE 250 MG PO ×2 (14:51→22:00)
[2024-08-18 18:11] LABS: Vancomycin, Trough Level 11.3 ug/mL (5.0-15.0)
--- NOTE | 2024-08-18 18:21 | PCM.RX.CS ---
Consult Antibiotic Management Pharmacy has been consulted to manage selected antibiotic: Vancomycin Type of Intervention Type of Consult: Follow-up Labs Labs: Sodium 140 mmol/L (133-145) 08/18/24 06:22 Potassium 3.4 mmol/L (3.3-5.1) 08/18/24 06:22 Chloride 104 mmol/L (98-108) 08/18/24 06:22 Carbon Dioxide 29.7 mmol/L (21.0-32.0) 08/18/24 06:22 Anion Gap 7 (5-15) 08/18/24 06:22 BUN 7 mg/dL (4-19) 08/18/24 06:22 Creatinine 0.69 mg/dL (0.70-1.20) L 08/18/24 06:22 Est GFR (MDRD) Non-Af 110 (>60) 08/18/24 06:22 BUN/Creatinine Ratio 10.6 RATIO (10-20) 08/18/24 06:22 Glucose 135 mg/dL (70-99) H 08/18/24 06:22 Vancomycin Trough 11.3 ug/mL (5.0-15.0) 08/18/24 16:28 Microbiology Microbiology: Microbiology 08/17/24 12:56 Mucosa - Nose Respiratory Panel (PCR) - Final 08/17/24 09:50 Mucosa - Nasopharyngeal Coronavirus COVID-19 PCR - Final 08/17/24 09:30 Urine, Clean Catch Legionella Antigen - Final 08/17/24 09:30 Urine, Clean Catch Streptococcus pneumoniae Antigen (M - Final 08/17/24 04:34 Mucosa - Nose SARS-CoV-2, Influenza & RSV (PCR) - Final Goal Trough Goal Trough: 15-20 mcg/mL Pharmacy Plan for Drug Dosing Pharmacy Plan for Drug Dosing: VANCOMYCIN LEVEL RECEIVED Current Vancomycin Dose: 1500mg IV Q12h Number of Doses Received: 3 (ED +2 scheduled doses) Vancomycin Level: 11.3 Hours Since Last Dose: 11.5 Renal Function: 0.69 Renal Function Trend: improved from initiation of vanco Lab/Micro: pending Vancomycin Plan/Comments: patient had a trough drawn which resulted in a value of 11.3 (goal 15-20). Will change vancomycin to 1250mg IV Q8h to start 08/18/24 @1900 Pending Level: 08/19/24 @1830, prior to 4th dose of updated regimen Pharmacy Service will continue to monitor and adjust dosing as required.
[2024-08-18] MEDS: Calcium (Elemental) 500 MG Tablet PO (18:32)
[2024-08-18] MEDS: Vancomycin HCl 1,250 MG in 0.9% Normal Saline (250mL Bag) 250 ML 167 MG IV (20:08)
[2024-08-18] MEDS: Escitalopram Oxalate 10 MG Tablet PO (22:00)
[2024-08-18] MEDS: Benztropine Mesylate 0.5 MG TABLET 1 MG PO (22:00)
[2024-08-18] MEDS: QUEtiapine 100 MG Tablet 300 MG PO (22:01)
[2024-08-18] MEDS: guaiFENesin 1,200 MG Tablet 1200 MG PO (22:01)
[2024-08-19] VITALS (9 sets, daily range): BP systolic 146–168; BP diastolic 67–99; PULSE 75–98; RESP 16–18; TEMP 36.3–36.8; O2SAT 93–98
[2024-08-19] MEDS: Vancomycin HCl 1,250 MG in 0.9% Normal Saline (250mL Bag) 250 ML 167 MG IV ×2 (03:18→11:28)
[2024-08-19 05:56] LABS: Absolute Lymphocyte Count 0.51 X10^3/uL (0.83-4.51); Absolute Neutrophil Count 3.8 X10^3/uL (2.0-7.7); Basophil# 0.02 X10^3/uL; Basophil% 0.4 % (0-1); Eosinophil# 0.02 X10^3/uL; Eosinophils% 0.4 % (0-5); Hematocrit 31.4 % (40-54); Hemoglobin 10.6 g/dL (13.0-16.5); Lymphocyte # 0.51 X10^3/ul (0.83-4.51); Lymphocyte % 10.9 % (19-41); Mean Corp Hgb Conc 33.8 g/dL (32-36); Mean Corpuscular Hgb 31.4 pg (27.0-32.0); Mean Corpuscular Volume 92.9 fL (80-94); Monocyte# 0.32 X10^3/uL; Monocyte% 6.9 % (0-10); NRBC Flagged by Analyzer 0 % (0-5); Neutrophil # 3.75 X10^3/uL (2.7-7.7); Neutrophil % 80.5 % (47-70); POSITIVE DIFFERENTIAL YES; Platelet Count 176 K/mm3 (150-450); RBC Distribution Width SD 47.3 fl (35.1-43.9); Red Blood Count 3.38 M/mm3 (4.6-6.2); White Blood Count 4.7 K/mm3 (4.4-11.0)
[2024-08-19] MEDS: Cefepime HCl 2 GM in 0.9% Normal Saline (100mL MB+) 100 ML IV ×3 (05:59→22:35)
[2024-08-19] MEDS: Benzonatate 100 MG Capsule PO ×3 (05:59→22:36)
[2024-08-19] MEDS: Divalproex Sodium 125 MG SPRINKLE 250 MG PO ×3 (05:59→22:35)
[2024-08-19] MEDS: LORazepam 1 MG Tablet 2 MG PO ×3 (05:59→22:34)
[2024-08-19 06:32] LABS: Anion Gap 13 (5-15); BUN 8 mg/dL (4-19); BUN/Creat Ratio 11.4 RATIO (10-20); Calcium,Total 8.9 mg/dL (7.6-11.0); Carbon Dioxide 31.8 mmol/L (21.0-32.0); Chloride 96 mmol/L (98-108); Creatinine, Serum 0.68 mg/dL (0.70-1.20); EST Glomerular Filtration Rate 111 (>60); Estimated Creatinine Clearance 151.98 ml/min (50-250); Glucose 121 mg/dL (70-99); Potassium 3.7 mmol/L (3.3-5.1); Sodium Level 140 mmol/L (133-145)
[2024-08-19] MEDS: Ipratropium/Albuterol Sulfate 3 ML AMPUL.NEB INHALATION ×2 (07:35→11:23)
[2024-08-19] MEDS: guaiFENesin 1,200 MG Tablet 1200 MG PO ×2 (09:28→22:35)
[2024-08-19] MEDS: Famotidine 20 MG Tablet PO (09:29)
[2024-08-19] MEDS: Escitalopram Oxalate 10 MG Tablet PO ×2 (09:29→22:35)
[2024-08-19] MEDS: Calcium (Elemental) 500 MG Tablet PO (09:29)
[2024-08-19] MEDS: QUEtiapine 100 MG Tablet 300 MG PO ×2 (09:29→22:35)
[2024-08-19] MEDS: Fludrocortisone Acetate 0.1 MG Tablet PO (09:30)
[2024-08-19] MEDS: Aspirin E.C. 81 MG Tablet PO (09:30)
[2024-08-19] MEDS: Benztropine Mesylate 0.5 MG TABLET 1 MG PO ×2 (09:31→22:34)
[2024-08-19] MEDS: Pantoprazole Sodium 40 MG in 0.9% Normal Saline (100mL MB+) 100 ML 330 MG IV (09:32)
[2024-08-19] MEDS: Enoxaparin 40 MG/0.4 ML Syringe SC (09:32)
[2024-08-19] MEDS: Hydrocortisone Sod Succinate 100 MG/2 ML Vial 50 MG IV ×2 (09:36→22:36)
--- NOTE | 2024-08-19 10:28 | PCM.PN.HOSP ---
Reason for Visit Reason for Visit: Diagnoses Schizoaffective disorder, unspecified (08/17/24) Pneumonitis due to inhalation of food and vomit (08/17/24) Acute respiratory failure with hypoxia (08/17/24) Subjective Subjective Patient sitting up in bed, reports he is feeling somewhat better, still having a cough, reports stomach is feeling better with no vomiting at present Objective Data Objective Data Vital Signs: Vital Signs Temp Pulse Resp BP Pulse Ox O2 Del Method O2 Flow Rate 97.6 F L 98 18 168/99 H 95 Room Air 3 08/19/24 09:19 08/19/24 09:19 08/19/24 09:19 08/19/24 09:19 08/19/24 09:42 08/19/24 09:42 08/19/24 09:19 FiO2 94 08/17/24 09:51 Oxygen Flow Rate (L/min) 3 Oxygen Delivery Method Room Air Weight: 113.7 kg Body Mass Index (BMI) 38.1 Intake & Output: Intake and Output for Last 24 Hours 08/17/24 08/18/24 08/19/24 23:59 23:59 23:59 Intake Total 1465 / 1465 1867.5 / 1867.5 375 / 375 Output Total 1500 / 1500 200 / 900 1450 / 1450 Balance -35 / -35 1667.5 / 967.5 -1075 / -1075 Lab / Micro Data 08/19/24 05:10 08/19/24 05:10 Labs: Laboratory Results - last 24 hr 08/18/24 16:28: Vancomycin Trough 11.3 08/19/24 05:10: WBC 4.7, RBC 3.38 L, Hgb 10.6 L, Hct 31.4 L, MCV 92.9, MCH 31.4, MCHC 33.8, RDW Std Deviation 47.3 H, RDW Coeff of Eleanor 14.0, Plt Count 176, MPV 9.0, Immature Gran % (Auto) 0.900, Neut % (Auto) 80.5 H, Lymph % (Auto) 10.9 L, [place] % (Auto) 6.9, Eos % (Auto) 0.4, Baso % (Auto) 0.4, Absolute Neuts (auto) 3.8, Absolute Lymphs (auto) 0.51 L, Nucleated RBC % 0, Sodium 140, Potassium 3.7, Chloride 96 L, Carbon Dioxide 31.8, Anion Gap 13, BUN 8, Creatinine 0.68 L, Estim Creat Clear Calc 151.98, Est GFR (MDRD) Non-Af 111, BUN/Creatinine Ratio 11.4, Glucose 121 H, Calcium 8.9 Micro: Microbiology 08/17/24 12:56 Mucosa - Nose Respiratory Panel (PCR) - Final 08/17/24 09:50 Mucosa - Nasopharyngeal Coronavirus COVID-19 PCR - Final 08/17/24 09:30 Urine, Clean Catch Legionella Antigen - Final 08/17/24 09:30 Urine, Clean Catch Streptococcus pneumoniae Antigen (M - Final 08/17/24 04:34 Mucosa - Nose SARS-CoV-2, Influenza & RSV (PCR) - Final Physical Exam Narrative General: Alert HEENT: Atraumatic Eyes: Keeps eyes closed, chronic Neck: Supple Respiratory: No significant respiratory distress, still has intermittent cough Cardiovascular: Regular rate GI: Soft, nontender, nondistended Extremities: No edema Musculoskeletal: Moving all extremities Neuro: No overt focal neurological deficits though patient not able to fully complete neuroexam Skin: No rashes appreciated Psych: Attempts to be cooperative Assessment & Plan Assessment/Plan (1) Acute respiratory failure with hypoxia: (2) Aspiration pneumonia: (3) Schizoaffective disorder: PLAN: Plan # Acute hypoxic respiratory failure secondary to bilateral pneumonia suspected due to aspiration -Imaging: Chest x-ray concerning for bilateral pneumonia -DuoNebs and as needed albuterol -Sputum culture, COVID ordered, respiratory panel ordered -Urine antigens -Mucinex, I/S -Vancomycin and cefepime continued from ED -08/18: Continue antibiotics, patient currently 94% on 5 L high flow, continue nebs -08/19: Patient significantly improving and is doing well with present diet, suspect he will be able to [place] [facility] if maintains stability # Nausea and vomiting -Will consult speech due to the concern for aspiration -Patient does have history of gastroparesis and cyclical vomiting but will obtain KUB for further evaluation, not actively vomiting at this time in the ED -Zofran as needed -08/18: KUB showed constipation, Dulcolax suppository given yesterday -08/19: Not having any active nausea or vomiting at this time # Adrenal insufficiency -Continue patient's home fludrocortisone, given his severe pneumonia we will hold oral hydrocortisone and give IV stress dose cortisone -08/18: On stress dose steroids, vitally stable and not critically ill so we will begin to wean, continue fludrocortisone -08/19: Patient vitally stable, suspect he can receive 1 dose of IV hydrocortisone tomorrow and then resume home oral hydrocortisone and continue fludrocortisone #Hypertension -Patient's blood pressure 116/66 -Add back agents as blood pressure increases -08/18: Patient more hypertensive today but was n.p.o., no will be will go back on his home medications, if still hypertensive may need to consider adding or adjusting medications, as needed hydralazine for now -08/19: Patient tolerating p.o., significantly elevated blood pressure so his Norvasc and propranolol were restarted, will continue to add back agents as able and his blood pressure tolerates Chronic medical problems: #Asthma/COPD -Nebs -I/S -Supportive care -08/18: Patient on scheduled nebulizers #Chronic normocytic anemia -No evidence of ongoing blood loss or indication of blood loss -Hgb 11.4, at baseline -08/18: Hemoglobin 10.6, no active bleeding noted, continue to monitor # Hyponatremia?resolved -Will hold hydrochlorothiazide -Repeat this afternoon -No further worsening will obtain further workup -08/18: Resolved, sodium 140, continue to hold hydrochlorothiazide # Schizoaffective disorder -Continue patient's home medications -08/18: Patient no longer n.p.o. so they will to continue home medications, again Fanapt unfortunately not on formulary # Hypomagnesemia -Replace and repeat in the a.m. -08/18: Resolved #DVT ppx: Lovenox subcu Laila Corbin MD Charges/Coding Visit Charges Inpatient E&M: 60457 Subs Hosp L2
[2024-08-19] MEDS: amLODIPine 10 MG Tablet PO (10:55)
[2024-08-19] MEDS: Propranolol LA 80 MG Capsule PO (10:55)
[2024-08-19] MEDS: 0.9% Saline Lock 10 ML Syringe IV (11:28)
[2024-08-19] MEDS: 0.9% Normal Saline (100mL Bag) 100 ML 15 ML IV (11:30)
[2024-08-19 19:39] LABS: Vancomycin, Trough Level 20.4 ug/mL (5.0-15.0)
--- NOTE | 2024-08-19 19:51 | PCM.RX.CS ---
Consult Antibiotic Management Pharmacy has been consulted to manage selected antibiotic: Vancomycin Type of Intervention Type of Consult: Follow-up Suspected Infection Suspected Infection: Pneumonia Prior Doses of Antibiotics Prior Doses of Antibiotics Received/Current Regimen: Vancomycin 1250 mg Q8H last dose given 08/19 @ 1128 Labs Labs: Sodium 140 mmol/L (133-145) 08/19/24 05:10 Potassium 3.7 mmol/L (3.3-5.1) 08/19/24 05:10 Chloride 96 mmol/L (98-108) L 08/19/24 05:10 Carbon Dioxide 31.8 mmol/L (21.0-32.0) 08/19/24 05:10 Anion Gap 13 (5-15) 08/19/24 05:10 BUN 8 mg/dL (4-19) 08/19/24 05:10 Creatinine 0.68 mg/dL (0.70-1.20) L 08/19/24 05:10 Est GFR (MDRD) Non-Af 111 (>60) 08/19/24 05:10 BUN/Creatinine Ratio 11.4 RATIO (10-20) 08/19/24 05:10 Glucose 121 mg/dL (70-99) H 08/19/24 05:10 Vancomycin Trough 20.4 ug/mL (5.0-15.0) H 08/19/24 18:32 Microbiology Microbiology: Microbiology 08/17/24 05:00 Blood Culture (Wb) - Right Hand Blood Culture - Preliminary No growth in 48 hours. 08/17/24 04:40 Blood Culture (Wb) - Anticubital Left Blood Culture - Preliminary No growth in 48 hours. 08/17/24 12:56 Mucosa - Nose Respiratory Panel (PCR) - Final 08/17/24 09:50 Mucosa - Nasopharyngeal Coronavirus COVID-19 PCR - Final 08/17/24 09:30 Urine, Clean Catch Legionella Antigen - Final 08/17/24 09:30 Urine, Clean Catch Streptococcus pneumoniae Antigen (M - Final 08/17/24 04:34 Mucosa - Nose SARS-CoV-2, Influenza & RSV (PCR) - Final Dosing Weight Weight used for dosin kg Estimated Creatinine Clearance Estimated Creatinine Clearance: ~ 150 Goal Trough Goal Trough: 15-20 mcg/mL Pharmacy Plan for Drug Dosing Pharmacy Plan for Drug Dosing: Vancomycin trough = 20.4, reduce dose to 1000 mg IV Q8H to avoid accumulation. Pharmacy Service will continue to monitor and adjust dosing as required. Follow-Up Labs Follow-Up Labs: Trough: Vancomycin Date/Time Labs Ordered Labs to be done on [date and time ordered]: 08/20/24 @ 1930
[2024-08-19] MEDS: Vancomycin IV 1,000 MG/200 ML BAG 200 MG IV (20:23)
[2024-08-20] VITALS (8 sets, daily range): BP systolic 154–175; BP diastolic 82–87; PULSE 67–87; RESP 16–18; TEMP 36.3–36.7; O2SAT 92–97
[2024-08-20] MEDS: Ipratropium/Albuterol Sulfate 3 ML AMPUL.NEB INHALATION ×3 (03:50→11:43)
[2024-08-20] MEDS: Vancomycin IV 1,000 MG/200 ML BAG 200 MG IV (04:12)
[2024-08-20] MEDS: Cefepime HCl 2 GM in 0.9% Normal Saline (100mL MB+) 100 ML IV (05:55)
[2024-08-20] MEDS: Divalproex Sodium 125 MG SPRINKLE 250 MG PO ×2 (05:55→14:45)
[2024-08-20] MEDS: Benzonatate 100 MG Capsule PO ×2 (05:55→14:45)
[2024-08-20] MEDS: LORazepam 1 MG Tablet 2 MG PO ×2 (05:55→14:44)
[2024-08-20 07:55] LABS: Absolute Lymphocyte Count 0.64 X10^3/uL (0.83-4.51); Absolute Neutrophil Count 5.1 X10^3/uL (2.0-7.7); Basophil# 0.05 X10^3/uL; Basophil% 0.8 % (0-1); Eosinophil# 0.03 X10^3/uL; Eosinophils% 0.5 % (0-5); Hematocrit 35.1 % (40-54); Hemoglobin 11.7 g/dL (13.0-16.5); Lymphocyte # 0.64 X10^3/ul (0.83-4.51); Lymphocyte % 9.9 % (19-41); Mean Corp Hgb Conc 33.3 g/dL (32-36); Mean Corpuscular Hgb 31.3 pg (27.0-32.0); Mean Corpuscular Volume 93.9 fL (80-94); Mean Platelet Vol. 8.5 fl (6.2-12.0); Monocyte# 0.47 X10^3/uL; Monocyte% 7.3 % (0-10); NRBC Flagged by Analyzer 0 % (0-5); Neutrophil # 5.13 X10^3/uL (2.7-7.7); Platelet Count 179 K/mm3 (150-450); RBC Distribution Width CV 13.8 % (11.6-14.6); RBC Distribution Width SD 47.6 fl (35.1-43.9); Red Blood Count 3.74 M/mm3 (4.6-6.2); White Blood Count 6.5 K/mm3 (4.4-11.0)
[2024-08-20 08:31] LABS: Anion Gap 10 (5-15); BUN 8 mg/dL (4-19); BUN/Creat Ratio 11.8 RATIO (10-20); Calcium,Total 9.1 mg/dL (7.6-11.0); Carbon Dioxide 32.9 mmol/L (21.0-32.0); Chloride 96 mmol/L (98-108); Creatinine, Serum 0.68 mg/dL (0.70-1.20); EST Glomerular Filtration Rate 110 (>60); Estimated Creatinine Clearance 151.98 ml/min (50-250); Glucose 111 mg/dL (70-99); Potassium 3.4 mmol/L (3.3-5.1); Sodium Level 140 mmol/L (133-145)
[2024-08-20] MEDS: Pantoprazole Sodium 40 MG in 0.9% Normal Saline (100mL MB+) 100 ML 330 MG IV (10:20)
[2024-08-20] MEDS: Senna/Docusate Sodium 1 Tablet 2 TABLET PO (10:25)
[2024-08-20] MEDS: Lisinopril 20 MG Tablet PO (10:25)
[2024-08-20] MEDS: Aspirin E.C. 81 MG Tablet PO (10:25)
[2024-08-20] MEDS: Calcium (Elemental) 500 MG Tablet PO (10:26)
[2024-08-20] MEDS: Propranolol LA 80 MG Capsule PO (10:26)
[2024-08-20] MEDS: guaiFENesin 1,200 MG Tablet 1200 MG PO (10:26)
[2024-08-20] MEDS: Fludrocortisone Acetate 0.1 MG Tablet PO (10:26)
[2024-08-20] MEDS: QUEtiapine 100 MG Tablet 300 MG PO (10:26)
[2024-08-20] MEDS: Benztropine Mesylate 0.5 MG TABLET 1 MG PO (10:26)
[2024-08-20] MEDS: amLODIPine 10 MG Tablet PO (10:26)
[2024-08-20] MEDS: Famotidine 20 MG Tablet PO (10:26)
[2024-08-20] MEDS: Hydrocortisone Sod Succinate 100 MG/2 ML Vial 50 MG IV (10:28)
[2024-08-20] MEDS: Escitalopram Oxalate 10 MG Tablet PO (10:28)
[2024-08-20] MEDS: Enoxaparin 40 MG/0.4 ML Syringe SC (10:28)
[2024-08-20] MEDS: Ferrous Sulfate 325 MG Tablet PO (10:29)
[2024-08-20] MEDS: 0.9% Saline Lock 10 ML Syringe IV (10:30)
--- NOTE | 2024-08-20 13:35 | PCM.TXEXTCAR ---
Diet Diet Order/Speech Therapy: 08/18/24 10:19 Diet: Regular - General Food consistency:: Mechanical (Minced/Moist) Liquid Consistency:: Regular/Thin Diet Comments: Distant supervision, verbally cue for small sips/slow rate Routine Orders/Code Status Suppository Type: Dulcolax 10mg Suppository Frequency: Daily PRN Routine Lab Work: BMP (2 to 3 days) Code Status: DNRCC-A DC O2, CPAP, BIPAP needs Home O2 Discharge instructions: No Problem/Diagnosis (1) Acute respiratory failure with hypoxia: Status: Acute Code(s): J96.01 - Acute respiratory failure with hypoxia (2) Aspiration pneumonia: Status: Acute Code(s): J69.0 - Pneumonitis due to inhalation of food and vomit (3) Schizoaffective disorder: Status: Acute Code(s): F25.9 - Schizoaffective disorder, unspecified Plan # Acute hypoxic respiratory failure secondary to aspiration pneumonia-respiratory failure resolved # Nausea and vomiting-acute on chronic secondary to gastroparesis and constipation # Adrenal insufficiency, chronic # Hypertension # Asthma/COPD # Chronic normocytic anemia # Schizoaffective disorder 54-year-old male history as above presented [facility] ED 08/17/2024 with shortness of breath and hypoxia from extended-care facility. Patient had episode of nausea and vomiting at senior care and then became hypoxic and there was concern for aspiration, on arrival to ED heart rate 115 and patient 93% on 6 L breathing 30 times a minute requiring transition to Airvo. Chest x-ray suggested bilateral pneumonia which was suspected to be due to aspiration. Patient given broad-spectrum antibiotics and admitted to the hospital. Patient improved significantly and no further emesis or concerns for aspiration. Speech gave recommendations for diet with distant supervision and verbal cue for small slip/slow rate. Oxygen weaned and patient 93% on room air. No new or acute complaints or concerns. Discharge instructions as followed: -Would recommend cefpodoxime 200 mg twice daily, take 1 dose tonight followed by 4 more days of treatment to complete your antibiotic course -Your blood pressure medications were slowly added back, would recommend repeating BMP in 2 to 3 days and if blood pressure, sodium, potassium, kidney function allow would resume hydrochlorothiazide and potassium supplementation -Given your constipation and that you will be resumed on your home iron we will schedule senna/docusate, hold for diarrhea -Resume your other home medications Allergies/Procedures Done in Hospital Allergies acetic acid Allergy (Verified 08/17/24 04:07) PT UNABLE TO RESPOND-NEEDS F/U nut - unspecified (nuts) Allergy (Verified 08/17/24 04:07) PT UNABLE TO RESPOND-NEEDS F/U Penicillins Allergy (Verified 08/17/24 04:07) PT UNABLE TO RESPOND-NEEDS F/U risperidone Allergy (Verified 08/17/24 04:07) PT UNABLE TO RESPOND-NEEDS F/U Type of Care/Length of Stay Estimated LOS: More Than 30 Days Type of Care Needed: Intermediate Rehab Potential: Poor Prognosis: Poor Additional Orders/Day of Discharge Day of Discharge: 08/20/24 Dietary and Speech Recommendations Dietitian Recommendations/Changes: Continue Regular diet with consistency/texture as per COMPUTER APPLICATIONS ENGINEER. Will offer ONS as needed once PO established with meals. Discharge Plan Admission Admit Date/Time: 08/17/24 06:55 Primary Reason for Your Visit: Aspiration, hypoxia Attending Provider: Laila Corbin Primary Care Provider: Lex Jiang Instructions Patient Instructions: Larynx Exercises Additional Instructions / Restrictions: DISCHARGE INSTRUCTIONS PLEASE READ *Please take this with you to your next doctors appointment* -Would recommend cefpodoxime 200 mg twice daily, take 1 dose tonight followed by 4 more days of treatment to complete your antibiotic course -Your blood pressure medications were slowly added back, would recommend repeating BMP in 2 to 3 days and if blood pressure, sodium, potassium, kidney function allow would resume hydrochlorothiazide and potassium supplementation -Given your constipation and that you will be resumed on your home iron we will schedule senna/docusate, hold for diarrhea -Resume your other home medications -Please call your primary care provider's office upon discharge to schedule a hospital follow up within 1 week. -For any concerning signs or symptoms please call 911 or proceed to the nearest emergency department Discharge Orders/Prescriptions Prescriptions: New benzonatate 100 mg Capsule 100 mg PO TID 7 Days Qty: 21 0RF cefpodoxime 200 mg tablet 200 mg PO BID 4 Days Qty: 9 0RF Rx Instructions: must administer with a meal/food sennosides-docusate sodium [Stimulant Laxative Plus] 8.6-50 mg Tablet 2 tab PO BID Qty: 0 0RF Rx Instructions: Hold for diarrhea Continued albuterol sulfate 0.63 mg/3 mL solution for nebulization 0.63 mg inhalation Q4H PRN (Reason: Shortness Of Breath) cyanocobalamin (vitamin B-12) 1,000 mcg Tablet 1,000 mcg PO WE famotidine [Pepcid] 20 mg Tablet 20 mg PO DAILY amlodipine [Norvasc] 10 mg Tablet 10 mg PO DAILY ferrous sulfate [FeroSul] 325 mg (65 mg iron) Tablet 325 mg PO BID benztropine 1 mg Tablet 1 mg PO BID fluticasone propionate [Flonase Allergy Relief] 50 mcg/actuation [place],Suspension 1 spray INTRANASAL DAILY fludrocortisone 0.1 mg Tablet 0.1 mg PO DAILY escitalopram oxalate [Lexapro] 10 mg Tablet 10 mg PO BID quetiapine [Seroquel XR] 300 mg Tablet Extended Release 24 Hr 600 mg PO QHS Fanapt 6 mg tablet 6 mg PO DAILY Fanapt 12 mg tablet 12 mg PO DAILY loperamide 2 mg Capsule 2 mg PO Q4H PRN (Reason: STOOL) aspirin 81 mg Tablet,Delayed Release (Dr/Ec) 81 mg PO DAILY magnesium hydroxide [Milk of Magnesia] 400 mg/5 mL Suspension 30 ml PO Q24H PRN (Reason: Constipation) calcium carbonate 500 mg calcium (1,250 mg) Tablet 500 mg PO BID propranolol 80 mg capsule,extended release 24 hr 80 mg PO DAILY alum-mag hydroxide-simeth 200-200-20 mg/5 mL Suspension 30 ml PO Q4H PRN (Reason: Heartburn) cholecalciferol (vitamin D3) [Vitamin D3] 50 mcg (2,000 unit) Tablet 50 mcg PO DAILY hydralazine 10 mg tablet 10 mg PO TID ondansetron 4 mg tablet,disintegrating 4 mg PO Q6H lorazepam 1 mg Tablet 2 mg PO TID Qty: 6 0RF lorazepam [Ativan] 2 mg Tablet 2 mg PO Q6H PRN (Reason: Agitation) Qty: 6 0RF folic acid 400 mcg tablet 1 mg PO DAILY hydrocortisone 5 mg tablet 15 mg PO DAILY hydrocortisone 10 mg tablet 10 mg PO DAILY lisinopril 20 mg tablet 20 mg PO DAILY Probiotic Blend 2 billion cell-50 mg capsule 1 cap PO DAILY Rx Instructions: give with meal/snack pantoprazole 40 mg tablet,delayed release (DR/EC) 40 mg PO DAILY divalproex 125 mg capsule, delayed rel sprinkle 250 mg PO Q8H lorazepam 2 mg/mL syringe 2 mg IM Q6H PRN (Reason: agitation) Held hydrochlorothiazide 25 mg tablet 25 mg PO DAILY Hold Instructions: Resume on 08/23/24. Hold until labs are checked and deemed appropriate to resume potassium chloride 10 mEq capsule, extended release Hold Instructions: Resume on 08/23/24. Hold until labs are checked and deemed appropriate to resume Patient Comments: [NO ORIGINAL SIG] Referrals / Follow Up: Lex Jiang MD [Primary Care Provider] - In 1 Week Disposition Disposition (needs filled in before D/C Order can be placed): NonSkilled NH/Intermed Care
--- NOTE | 2024-08-20 13:42 | CASEMGMT ---
[place] [facility] [facility] [place]. Physicians will transport patient. Mercedes BALLESTEROS
--- NOTE | 2024-08-20 13:43 | PCM.DC.SUM ---
Providers Date of Admission: 08/17/24 Date of Discharge: 08/20/24 Primary Care Physician: Dr. Lex Jiang MD Reason For Visit: AHRF 2/2 ASPIRATION PNA Diagnosis Discharge Diagnosis (1) Acute respiratory failure with hypoxia: Status: Acute Code(s): J96.01 - Acute respiratory failure with hypoxia (2) Aspiration pneumonia: Status: Acute Code(s): J69.0 - Pneumonitis due to inhalation of food and vomit (3) Schizoaffective disorder: Status: Acute Code(s): F25.9 - Schizoaffective disorder, unspecified Plan # Acute hypoxic respiratory failure secondary to aspiration pneumonia-respiratory failure resolved # Nausea and vomiting-acute on chronic secondary to gastroparesis and constipation # Adrenal insufficiency, chronic # Hypertension # Asthma/COPD # Chronic normocytic anemia # Schizoaffective disorder -Resume your other home medications Medications at Discharge Home Medications albuterol sulfate 0.63 mg/3 mL solution for nebulization 0.63 mg inhalation Q4H PRN Shortness Of Breath 06/04/22 amlodipine 10 mg tablet (Norvasc) 10 mg PO DAILY BLOOD PRESSURE 06/04/22 benztropine 1 mg tablet 1 mg PO BID 06/04/22 cyanocobalamin (vitamin B-12) 1,000 mcg tablet 1,000 mcg PO WE SUPPLEMENT 06/04/22 escitalopram oxalate 10 mg tablet (Lexapro) 10 mg PO BID MENTAL HEALTH 06/04/22 famotidine 20 mg tablet (Pepcid) 20 mg PO DAILY ACID REFLUX 06/04/22 ferrous sulfate 325 mg (65 mg iron) tablet (FeroSul) 325 mg PO BID SUPPLEMENT 06/04/22 fludrocortisone 0.1 mg tablet 0.1 mg PO DAILY 06/04/22 fluticasone propionate 50 mcg/actuation nasal spray,suspension (Flonase Allergy Relief) 1 spray intranasal DAILY ALLERGIES 06/04/22 iloperidone 12 mg tablet (Fanapt) 12 mg PO DAILY MENTAL HEALTH 06/04/22 iloperidone 6 mg tablet (Fanapt) 6 mg PO DAILY MENTAL HEALTH 06/04/22 quetiapine 300 mg tablet,extended release 24 hr (Seroquel XR) 600 mg PO QHS MENTAL HEALTH 06/04/22 aluminum-mag hydroxide-simethicone 200 mg-200 mg-20 mg/5 mL oral susp 30 ml PO Q4H PRN Heartburn 07/24/22 aspirin 81 mg tablet,delayed release 81 mg PO DAILY HEART HEALTH 07/24/22 calcium carbonate 500 mg PO BID SUPPLEMENT 07/24/22 cholecalciferol (vitamin D3) 50 mcg (2,000 unit) tablet (Vitamin D3) 50 mcg PO DAILY SUPPLEMENT 07/24/22 loperamide 2 mg capsule 2 mg PO Q4H PRN STOOL 07/24/22 magnesium hydroxide 400 mg/5 mL oral suspension (Milk of Magnesia) 30 ml PO Q24H PRN Constipation 07/24/22 propranolol 80 mg capsule,24 hr,extended release 80 mg PO DAILY BLOOD PRESSURE 07/24/22 L.acidophil-L.casei-B.bifid-B.longum-FOS 2 billion cell-50 mg capsule (Probiotic Blend) 1 cap PO DAILY 06/24/24 divalproex 125 mg capsule,delayed release sprinkle 250 mg PO Q8H 06/24/24 folic acid 400 mcg tablet 1 mg PO DAILY 06/24/24 hydrocortisone 10 mg tablet 10 mg PO DAILY 06/24/24 hydrocortisone 5 mg tablet 15 mg PO DAILY 06/24/24 lisinopril 20 mg tablet 20 mg PO DAILY 06/24/24 pantoprazole 40 mg tablet,delayed release 40 mg PO DAILY 06/24/24 hydralazine 10 mg tablet 10 mg PO TID 07/16/24 ondansetron 4 mg disintegrating tablet 4 mg PO Q6H 07/16/24 lorazepam 1 mg tablet 2 mg (2 x 1 mg) PO TID #6 tabs 07/20/24 lorazepam 2 mg tablet (Ativan) 2 mg PO Q6H PRN Agitation #6 tabs 07/20/24 hydrochlorothiazide 25 mg tablet 25 mg PO DAILY 08/17/24 Held on 08/20/24. Instructions: Resume on 08/23/24. Hold until labs are checked and deemed appropriate to resume lorazepam 2 mg/mL injection syringe 2 mg IM Q6H PRN agitation 08/17/24 potassium chloride 10 mEq capsule,extended release meq 08/17/24 Held on 08/20/24. Instructions: Resume on 08/23/24. Hold until labs are checked and deemed appropriate to resume benzonatate 100 mg capsule 100 mg PO TID 7 days #21 caps 08/20/24 cefpodoxime 200 mg tablet 200 mg PO BID 4 days #9 tabs 08/20/24 sennosides 8.6 mg-docusate sodium 50 mg tablet (Stimulant Laxative Plus) 2 tab PO BID #0 tabs 08/20/24 Hospital Course Summary of Care Provided Minutes Spent on Discharge: 27 Hospital Course: # Acute hypoxic respiratory failure secondary to aspiration pneumonia-respiratory failure resolved # Nausea and vomiting-acute on chronic secondary to gastroparesis and constipation # Adrenal insufficiency, chronic # Hypertension # Asthma/COPD # Chronic normocytic anemia # Schizoaffective disorder 54-year-old male history as above presented [facility] ED 08/17/2024 with shortness of breath and hypoxia from extended-care facility. Patient had episode of nausea and vomiting at group home and then became hypoxic and there was concern for aspiration, on arrival to ED heart rate 115 and patient 93% on 6 L breathing 30 times a minute requiring transition to Airvo. Chest x-ray suggested bilateral pneumonia which was suspected to be due to aspiration. Patient given broad-spectrum antibiotics and admitted to the hospital. Patient improved significantly and no further emesis or concerns for aspiration. Speech gave recommendations for diet with distant supervision and verbal cue for small slip/slow rate. Oxygen weaned and patient 93% on room air. No new or acute complaints or concerns. Discharge instructions as followed: -Would recommend cefpodoxime 200 mg twice daily, take 1 dose tonight followed by 4 more days of treatment to complete your antibiotic course -Your blood pressure medications were slowly added back, would recommend repeating BMP in 2 to 3 days and if blood pressure, sodium, potassium, kidney function allow would resume hydrochlorothiazide and potassium supplementation -Given your constipation and that you will be resumed on your home iron we will schedule senna/docusate, hold for diarrhea -Resume your other home medications Physical Exam Narrative General: Alert HEENT: Atraumatic Eyes: Keeps eyes closed, chronic Neck: Supple Respiratory: No significant respiratory distress, coughing improving Cardiovascular: Regular rate GI: Soft, nontender, nondistended Extremities: No edema Musculoskeletal: Moving all extremities Neuro: No overt focal neurological deficits though patient not able to fully complete neuroexam Skin: No rashes appreciated Psych: Attempts to be cooperative Weight / BMI Weight Weight: 113.7 kg Body Mass Index (BMI) 38.1 ABG / Lab / Microbiology Data 08/20/24 07:21 08/20/24 07:21 Laboratory: Laboratory Results - last 24 hr 08/19/24 18:32: Vancomycin Trough 20.4 H 08/20/24 07:21: WBC 6.5, RBC 3.74 L, Hgb 11.7 L, Hct 35.1 L, MCV 93.9, MCH 31.3, MCHC 33.3, RDW Std Deviation 47.6 H, RDW Coeff of Eleanor 13.8, Plt Count 179, MPV 8.5, Immature Gran % (Auto) 2.500 H, Neut % (Auto) 79.0 H, Lymph % (Auto) 9.9 L, Lewis % (Auto) 7.3, Eos % (Auto) 0.5, Baso % (Auto) 0.8, Absolute Neuts (auto) 5.1, Absolute Lymphs (auto) 0.64 L, Nucleated RBC % 0, Sodium 140, Potassium 3.4, Chloride 96 L, Carbon Dioxide 32.9 H, Anion Gap 10, BUN 8, Creatinine 0.68 L, Estim Creat Clear Calc 151.98, Est GFR (MDRD) Non-Af 110, BUN/Creatinine Ratio 11.8, Glucose 111 H, Calcium 9.1 Microbiology: Microbiology 08/17/24 05:00 Blood Culture (Wb) - Right Hand Blood Culture - Preliminary No growth in 48 hours. 08/17/24 04:40 Blood Culture (Wb) - Anticubital Left Blood Culture - Preliminary No growth in 48 hours. 08/17/24 12:56 Mucosa - Nose Respiratory Panel (PCR) - Final 08/17/24 09:50 Mucosa - Nasopharyngeal Coronavirus COVID-19 PCR - Final 08/17/24 09:30 Urine, Clean Catch Legionella Antigen - Final 08/17/24 09:30 Urine, Clean Catch Streptococcus pneumoniae Antigen (M - Final 08/17/24 04:34 Mucosa - Nose SARS-CoV-2, Influenza & RSV (PCR) - Final D/C Instructions Discharge Diet: - (Minced and moist, distant supervision, verbal cues) Discharge Activity: - (Increase activity as tolerated) DC O2, CPAP, BIPAP Needs PSN CPAP & BiPAP: BiPAP & CPAP Settings per PSN Mode AIRVO 08/17/24 04:34 Bipap Delivery Device Nasal Pillows 08/17/24 04:34 Fraction of Inspired Oxygen ( 94 08/17/24 09:51 FIO2) Total Flow Rate 50 08/17/24 04:34 Home O2 Discharge instructions: No Meaningful Use Info Meaningful Use Meaningful Use Diagnoses (Choose all that apply): None applicable Ischemic Stroke Statin Dosing Therapy Reference: STATIN DOSE THERAPY REFERENCE: * Patients > 75 years receive moderate or high dose statin therapy. * Patients 75 years or YOUNGER should receive HIGH intensity statin dose unless contraindicated. You will be required to document reason for non-treatment if statin daily dose does not meet guidelines. HIGH DOSE STATIN THERAPY DAILY Atorvastatin > than or = to 40 mg Rosuvastatin > than or = to 20 mg Amlodipine + Atorvastatin > than or = to 2.5/40 mg Ezetimibe + Simvastatin 10/80 mg Simvastatin 80mg Discharge Plan Admission Admit Date/Time: 08/17/24 06:55 Primary Reason for Your Visit: Aspiration, hypoxia Attending Provider: Laila Corbin Primary Care Provider: Lex Jiang Instructions Patient Instructions: Larynx Exercises Additional Instructions / Restrictions: DISCHARGE INSTRUCTIONS PLEASE READ *Please take this with you to your next doctors appointment* -Would recommend cefpodoxime 200 mg twice daily, take 1 dose tonight followed by 4 more days of treatment to complete your antibiotic course -Your blood pressure medications were slowly added back, would recommend repeating BMP in 2 to 3 days and if blood pressure, sodium, potassium, kidney function allow would resume hydrochlorothiazide and potassium supplementation -Given your constipation and that you will be resumed on your home iron we will schedule senna/docusate, hold for diarrhea -Resume your other home medications -Please call your primary care provider's office upon discharge to schedule a hospital follow up within 1 week. -For any concerning signs or symptoms please call 911 or proceed to the nearest emergency department Discharge Orders/Prescriptions Prescriptions: New benzonatate 100 mg Capsule 100 mg PO TID 7 Days Qty: 21 0RF cefpodoxime 200 mg tablet 200 mg PO BID 4 Days Qty: 9 0RF Rx Instructions: must administer with a meal/food sennosides-docusate sodium [Stimulant Laxative Plus] 8.6-50 mg Tablet 2 tab PO BID Qty: 0 0RF Rx Instructions: Hold for diarrhea Continued albuterol sulfate 0.63 mg/3 mL solution for nebulization 0.63 mg inhalation Q4H PRN (Reason: Shortness Of Breath) cyanocobalamin (vitamin B-12) 1,000 mcg Tablet 1,000 mcg PO WE famotidine [Pepcid] 20 mg Tablet 20 mg PO DAILY amlodipine [Norvasc] 10 mg Tablet 10 mg PO DAILY ferrous sulfate [FeroSul] 325 mg (65 mg iron) Tablet 325 mg PO BID benztropine 1 mg Tablet 1 mg PO BID fluticasone propionate [Flonase Allergy Relief] 50 mcg/actuation Industry,Suspension 1 spray INTRANASAL DAILY fludrocortisone 0.1 mg Tablet 0.1 mg PO DAILY escitalopram oxalate [Lexapro] 10 mg Tablet 10 mg PO BID quetiapine [Seroquel XR] 300 mg Tablet Extended Release 24 Hr 600 mg PO QHS Fanapt 6 mg tablet 6 mg PO DAILY Fanapt 12 mg tablet 12 mg PO DAILY loperamide 2 mg Capsule 2 mg PO Q4H PRN (Reason: STOOL) aspirin 81 mg Tablet,Delayed Release (Dr/Ec) 81 mg PO DAILY magnesium hydroxide [Milk of Magnesia] 400 mg/5 mL Suspension 30 ml PO Q24H PRN (Reason: Constipation) calcium carbonate 500 mg calcium (1,250 mg) Tablet 500 mg PO BID propranolol 80 mg capsule,extended release 24 hr 80 mg PO DAILY alum-mag hydroxide-simeth 200-200-20 mg/5 mL Suspension 30 ml PO Q4H PRN (Reason: Heartburn) cholecalciferol (vitamin D3) [Vitamin D3] 50 mcg (2,000 unit) Tablet 50 mcg PO DAILY hydralazine 10 mg tablet 10 mg PO TID ondansetron 4 mg tablet,disintegrating 4 mg PO Q6H lorazepam 1 mg Tablet 2 mg PO TID Qty: 6 0RF lorazepam [Ativan] 2 mg Tablet 2 mg PO Q6H PRN (Reason: Agitation) Qty: 6 0RF folic acid 400 mcg tablet 1 mg PO DAILY hydrocortisone 5 mg tablet 15 mg PO DAILY hydrocortisone 10 mg tablet 10 mg PO DAILY lisinopril 20 mg tablet 20 mg PO DAILY Probiotic Blend 2 billion cell-50 mg capsule 1 cap PO DAILY Rx Instructions: give with meal/snack pantoprazole 40 mg tablet,delayed release (DR/EC) 40 mg PO DAILY divalproex 125 mg capsule, delayed rel sprinkle 250 mg PO Q8H lorazepam 2 mg/mL syringe 2 mg IM Q6H PRN (Reason: agitation) Held hydrochlorothiazide 25 mg tablet 25 mg PO DAILY Hold Instructions: Resume on 08/23/24. Hold until labs are checked and deemed appropriate to resume potassium chloride 10 mEq capsule, extended release Hold Instructions: Resume on 08/23/24. Hold until labs are checked and deemed appropriate to resume Patient Comments: [NO ORIGINAL SIG] Referrals / Follow Up: Lex Jiang MD [Primary Care Provider] - In 1 Week Disposition Disposition (needs filled in before D/C Order can be placed): NonSkilled NH/Intermed Care Charges/Coding Visit Charges Inpatient E&M: 05251 Disch Hosp >30min
--- NOTE | 2024-08-20 14:24 | CASEMGMT ---
Discharge Planning Discharge orders, signed med list, and transport time faxed to [facility]. Fax confirmation rec'd. Physicians will transport pt by cot at 4p. Nursing and SW updated. VM left for pts sister/legal guardian (Courtney). Jeannette Katz DC Planning Asst.
[2024-08-20] MEDS: hydrALAZINE 10 MG Tablet PO (14:45)
--- NOTE | 2024-08-20 15:15 | NURSING ---
Report called to nurse Salas for pt to be d/c back to [facility].
--- NOTE | 2024-08-20 15:55 | CHAPLAIN ---
Type of Pastoral Visit _x__ Initial Visit ___ Follow-up Visit ___ On-call Visit ___ General Patient Visit ___ Spiritual Assessment ___ Family Conference ___ Bereavement ___ Rapid Response ___ Code Blue ___ Other (describe below) Pastoral Care Referral From _x__ Patient ___ Family ___ Nurse ___ Physician ___ [place] ___ Rand Cementer ___ Other (describe below) Sacrament/Intervention _x__ Active listening ___ Anointing ___ Episcopal ___ Bereavement ___ Communion ___ Jennifer exploration ___ ___ Life review ___ Prayer ___ Reconciliation ___ Sacrament of Sick _x__ Supportive presence ___ Wedding ___ Other (describe below) Pastoral Comments patient has been seen before; 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
== END 2024-08-20 17:18 | disposition intermediate care facility (04) | DRG 177 ==
LOC: ED 05:46 → PCU 07:12
PROVIDERS: Admitting Provider Internal Medicine; Emergency Provider Emergency Medicine; PCP Family Medicine; Visit Provider Internal Medicine
DX: J69.0 Pneumonitis due to inhalation of food and vomit (principal); J96.01 Acute respiratory failure with hypoxia; E87.1 Hypo-osmolality and hyponatremia; E27.40 Unspecified adrenocortical insufficiency; J44.0 Chronic obstructive pulmonary disease with (acute) lower respiratory infection; Z51.5 Encounter for palliative care; F25.9 Schizoaffective disorder, unspecified; D64.9 Anemia, unspecified; I10 Essential (primary) hypertension; E66.9 Obesity, unspecified; E78.5 Hyperlipidemia, unspecified; K31.84 Gastroparesis; E83.42 Hypomagnesemia; K59.00 Constipation, unspecified; Z66 Do not resuscitate; Z79.52 Long term (current) use of systemic steroids
CPT/HCPCS: 36415; 71045; 74018; 80048; 80202; 83605; 83735; 83880; 84145; 85025; 87040; 87449; 87631; 87633; 87635; 92526; 92610; 94640; 94660; 94668; 97162; 99285; A4216; J2405

== ENCOUNTER 2024-11-18 07:20 | Inpatient (IN) | payer MEDICARE, MEDICAID, SELFPAY ==
[2024-11-18] VITALS (18 sets, daily range): BP systolic 137–174; BP diastolic 71–108; PULSE 72–109; RESP 14–21; TEMP 36.2–37.1; O2SAT 77–98; BMI 39.3; BMI 39.7
--- NOTE | 2024-11-18 07:40 | ED.VIS.DYS ---
HPI History of Present Illness Chief Complaint: Cough Informant: patient Onset/Context/Timing Onset: Today Timing: Continuous Current Severity: Moderate Maximum Severity: Moderate Associated Symptoms cough Chest Pain: Positive for None Narrative Narrative: 54-year-old male with history of COPD hypertension schizophrenia from [facility] brought in today due to hypoxia and shortness of breath. Patient himself is a limited informant. He is legally blind. PE Risk Factors: Negative for Cancer, OCP + Smoking + > 35, Prior DVT or PE, Recent immobilization, Recent surgery or Recent travel Prior similar symptoms: Yes Recent Illness/Hospitalization: No [facility] Medical History Acidosis, lactic GURJIT (acute kidney injury) COPD (chronic obstructive pulmonary disease) Hypoxia Pneumonia MRSA (methicillin resistant staph aureus) culture positive Morbid obesity with BMI of 40.0-44.9, adult Intermittent explosive disorder Schizoaffective disorder Acute metabolic encephalopathy Bradycardia Chronic anal fissure Cellulitis Adrenocortical insufficiency Anemia Schizo affective schizophrenia Legally blind Intermittent explosive disorder COPD (chronic obstructive pulmonary disease) Hypertension Asthma Gastroparesis Cyclical vomiting Thrombocythemia Hypocalcemia Anxiety Home Medications ?Medication ?Instructions ?Recorded ?Last Taken ?Type albuterol sulfate 0.63 mg/3 mL 0.63 mg inhalation Q4H PRN 06/04/22 Unknown History solution for nebulization Shortness Of Breath benztropine 1 mg tablet 1 mg PO BID 06/04/22 07/23/22 History cyanocobalamin (vitamin B-12) 1,000 mcg PO WE SUPPLEMENT 06/04/22 07/24/22 08:00 History 1,000 mcg tablet escitalopram oxalate 10 mg tablet 10 mg PO BID MENTAL HEALTH 06/04/22 07/24/22 08:00 History (Lexapro) ferrous sulfate 325 mg (65 mg 325 mg PO BID SUPPLEMENT 06/04/22 07/24/22 08:00 History iron) tablet (FeroSul) fludrocortisone 0.1 mg tablet 0.1 mg PO DAILY 06/04/22 07/24/22 08:00 History fluticasone propionate 50 1 spray intranasal DAILY ALLERGIES 06/04/22 07/24/22 08:00 History mcg/actuation nasal spray,suspension (Flonase Allergy Relief) iloperidone 12 mg tablet (Fanapt) 12 mg PO DAILY MENTAL HEALTH 06/04/22 07/23/22 History iloperidone 6 mg tablet (Fanapt) 6 mg PO DAILY MENTAL HEALTH 06/04/22 07/24/22 08:00 History quetiapine 300 mg tablet,extended 600 mg PO QHS MENTAL HEALTH 06/04/22 07/23/22 History release 24 hr (Seroquel XR) aluminum-mag hydroxide-simethicone 30 ml PO Q4H PRN Heartburn 07/24/22 Unknown History 200 mg-200 mg-20 mg/5 mL oral susp aspirin 81 mg tablet,delayed 81 mg PO DAILY HEART HEALTH 07/24/22 07/24/22 08:00 History release calcium carbonate 500 mg PO BID SUPPLEMENT 07/24/22 07/24/22 08:00 History cholecalciferol (vitamin D3) 50 50 mcg PO DAILY SUPPLEMENT 07/24/22 07/24/22 08:00 History mcg (2,000 unit) tablet (Vitamin D3) loperamide 2 mg capsule 2 mg PO Q4H PRN STOOL 07/24/22 07/24/22 09:30 History magnesium hydroxide 400 mg/5 mL 30 ml PO Q24H PRN Constipation 07/24/22 Unknown History oral suspension (Milk of Magnesia) propranolol 80 mg capsule,24 80 mg PO DAILY BLOOD PRESSURE 07/24/22 07/24/22 08:00 History hr,extended release L.acidophil-L.casei-B.bifid-B.longum-FOS 1 cap PO DAILY 06/24/24 Unknown History 2 billion cell-50 mg capsule (Probiotic Blend) divalproex 125 mg capsule,delayed 250 mg PO Q8H 06/24/24 Unknown History release sprinkle folic acid 400 mcg tablet 1 mg PO DAILY 06/24/24 Unknown History hydrocortisone 5 mg tablet 15 mg PO DAILY 06/24/24 Unknown History lisinopril 20 mg tablet 20 mg PO DAILY 06/24/24 Unknown History pantoprazole 40 mg tablet,delayed 40 mg PO DAILY 06/24/24 Unknown History release hydralazine 10 mg tablet 10 mg PO TID 07/16/24 Unknown History lorazepam 1 mg tablet 2 mg (2 x 1 mg) PO TID #6 tabs 07/20/24 Unknown Rx lorazepam 2 mg tablet (Ativan) 2 mg PO Q6H PRN Agitation #6 tabs 07/20/24 Unknown Rx hydrochlorothiazide 25 mg tablet 25 mg PO DAILY 08/17/24 Unknown History lorazepam 2 mg/mL injection syringe 2 mg IM Q6H PRN agitation 08/17/24 Unknown History potassium chloride 10 mEq 30 meq PO DAILY 08/17/24 Unknown History capsule,extended release sennosides 8.6 mg-docusate sodium 2 tab PO BID #0 tabs 08/20/24 Unknown Rx 50 mg tablet (Stimulant Laxative Plus) acetaminophen 325 mg tablet 650 mg PO ONCE PRN fever or pain 10/11/24 Unknown History (Tylenol) amlodipine 10 mg tablet (Norvasc) 10 mg PO QDAY 10/11/24 Unknown History calcium carbonate (Tums) 200 mg PO TID 10/11/24 Unknown History tuberculin PPD 5 tub. unit/0.1 mL 0.1 ml intradermal ONCE 10/11/24 Unknown History intradermal injection solution (Tubersol) docusate sodium 100 mg capsule 100 mg PO BID 11/18/24 Unknown History (Colace) ergocalciferol (vitamin D2) 1,250 1,250 mcg PO QWEEK 11/18/24 Unknown History mcg (50,000 unit) capsule polyethylene glycol 3350 17 17 g PO DAILY 11/18/24 Unknown History gram/dose oral powder (ClearLax) Allergy/AdvReac Type Severity Reaction Status Date / Time acetic acid Allergy PT UNABLE Verified 11/18/24 10:04 TO RESPOND-NEEDS F/U nut - unspecified (nuts) Allergy PT UNABLE Verified 11/18/24 10:04 TO RESPOND-NEEDS F/U Penicillins Allergy PT UNABLE Verified 11/18/24 10:04 TO RESPOND-NEEDS F/U risperidone Allergy PT UNABLE Verified 11/18/24 10:04 TO RESPOND-NEEDS F/U Family History Father COPD (chronic obstructive pulmonary disease) Mother Hypertension Surgical History History of eye surgery S/P repair of hydrocele Social History housing: other details: Nursing facility with psychiatric focus. Smoking Status: Never smoker alcohol intake: never substance use type: does not use ROS ROS ED ROS Narrative Cough and shortness of breath. Constitutional Constitutional ED: Denies chills or fever(s) Eyes Eyes: Denies blurry vision ENT ENT ED: Denies ear pain Cardiovascular Cardiovascular: Denies chest pain Respiratory/Chest Respiratory/Chest: Reports cough and dyspnea Gastrointestinal Gastrointestinal: Denies abdominal pain Genitourinary Genitourinary ED: Denies dysuria or hematuria Musculoskeletal Musculoskeletal: Denies arthralgias Integumentary Denies abscess Neurologic Neurologic: Denies headache(s) Psychiatric Psychiatric: Denies anxiety Endocrine Endocrinology: Denies cold intolerance Hematologic/Lymphatic Hematologic/Lymphatic: Denies easy bleeding Allergic/Immunologic Allergic/Immunologic ED: Denies mouth swelling EXAM Physical Exam Narrative Exam Narrative: 54-year-old male sitting upright in bed. Vital signs stable afebrile. Pulse ox here was 88% on room air according to squad he was 77% on room air for them. Obviously hypoxic. H EENT exam he is legally blind. Pupils are not reactive light. He has moist mucous membranes. There is no trauma to his face or scalp. Neck nontender no JVD. No lymphadenopathy. Lungs diminished breath sounds in both bases. Few scattered expiratory wheezes. No rales or rhonchi. On oxygen he is not in respiratory distress. Off of oxygen he becomes hypoxic. Heart tachycardic 105 no murmur. Chest wall ribs nontender. Abdomen soft nontender. Moving all 4 extremities. Normal marketing services rep strength. Normal dorsi plantarflexion. Calves are nontender without edema or cords. Back nontender. Neurologically he is awake and alert. He is answering questions following commands. He is a limited informant. He is blind. Const Vital Signs: 11/18/24 07:21 11/18/24 07:54 11/18/24 07:55 Temperature 98.7 F Temperature Source Oral Pulse Rate 109 H Respiratory Rate 19 H Respiratory Effort Short of Breath Respiratory Pattern Blood Pressure 174/90 H Blood Pressure Mean 118 Pulse Ox 90 97 Oxygen Delivery Method Room Air Room Air Nasal Cannula Oxygen Flow Rate (L/min) 2 11/18/24 07:55 11/18/24 07:56 11/18/24 08:42 Temperature 98.8 F Temperature Source Oral Pulse Rate 92 86 Respiratory Rate 18 17 Respiratory Effort Respiratory Pattern Normal Blood Pressure 144/81 H Blood Pressure Mean 102 Pulse Ox 98 93 Oxygen Delivery Method Nasal Cannula Nasal Cannula Oxygen Flow Rate (L/min) 2 2 11/18/24 09:00 11/18/24 10:00 11/18/24 11:00 Temperature 98.7 F 98.6 F 98.2 F Temperature Source Oral Oral Oral Pulse Rate 80 78 74 Respiratory Rate 18 18 16 Respiratory Effort Respiratory Pattern Blood Pressure 137/108 H 141/81 H 157/91 H Blood Pressure Mean 117 101 113 Pulse Ox 92 92 93 Oxygen Delivery Method Nasal Cannula Nasal Cannula Nasal Cannula Oxygen Flow Rate (L/min) 2 2 2 11/18/24 12:00 11/18/24 13:00 11/18/24 13:07 Temperature 98.4 F 98.2 F 98.4 F Temperature Source Oral Oral Pulse Rate 79 76 73 Respiratory Rate 14 21 H 14 Respiratory Effort Respiratory Pattern Blood Pressure 172/91 H 167/88 H 164/71 H Blood Pressure Mean 118 112 102 Pulse Ox 94 94 96 Oxygen Delivery Method Nasal Cannula Room Air Oxygen Flow Rate (L/min) 2 Positive well nourished and well developed; Negative for cachectic, contractures or unkempt General Appearance ED: well developed; Negative for unkempt, cachectic, contractures, NAD or pallor Nutritional Appearance: Negative for cachectic HEENT Reports moist mucous membranes atraumatic; Negative for trauma or tenderness Eyes Negative for PERRL Eyes Narrative: Legally blind. Neck no lymphadenopathy, supple, no meningeal signs and no JVD Resp normal respiratory effort and clear to auscultation bilaterally Cardio regular rate, regular rhythm, S1 normal heart sound and S2 normal heart sound Rate: tachycardic GI non-tender, non-distended and no masses Palpation: soft; Negative for tender, guarding or rebound tenderness present Back/Spine no CVA tenderness and normal to inspection Extremity normal to inspection General Extremety ED: Negative for edema or tenderness General Extremity: Negative for edema Neuro oriented x3 and CN's II-XII intact bilaterally Sensorium / Orientation: alert, oriented to person, oriented to place and oriented to time; Negative for orientation impaired, confused, lethargic or stuporous Speech: speech normal Motor Exam: strength 5/5 throughout Psych mental status grossly normal Appearance: Negative for unkempt Attitude: No agitated Mood & Affect: Negative for depressed, anxious or tearful Thought Process: normal thought process Skin no wounds and skin turgor normal General Skin Exam: Negative for jaundice or pallor Lesions: no lesions Rashes: no rashes MDM MDM MDM Narrative Medical decision making narrative: 54-year-old legally blind male with COPD with shortness of breath, hypoxia and concern for possible pneumonia versus other causes. We treated with DuoNeb and albuterol aerosols. Chest x-ray labs and EKG will be obtained. He has had similar events of this in the past when he had pneumonia. Repeat exam at 1 PM no significant change. CAT scan findings are consistent with aspiration pneumonia. I spoke to the hospitalist of the admitted [facility] floor. Initially was going to treat him with Unasyn but given he has a penicillin allergy walk to determine a different antibiotic of choice. History & Record Review Discussion w/independent historian: Patient Additional record(s) reviewed:: Prior inpatient record, Prior outpatient record, Prior ED visit and Prior labs Lab Data Attestation: I reviewed the patient's lab results. Lab results narrative: CBC shows a week 11.9. H&H 12 and 35. Platelets 183. Electrolytes show a sodium 136. Gap of 12. BUN and creatinine of 10 and 0.8. Initial troponin 7. 2-hour troponin is 8. BNP 122. Labs: Laboratory Results - last 24 hr 11/18/24 11/18/24 07:38 10:00 WBC 11.9 H RBC 3.96 L Hgb 12.0 L Hct 35.9 L MCV 90.7 MCH 30.3 MCHC 33.4 RDW Std Deviation 47.1 H RDW Coeff of Eleanor 14.1 Plt Count 183 MPV 9.3 Immature Gran % (Auto) 0.300 Neut % (Auto) 83.0 H Lymph % (Auto) 4.9 L [place] % (Auto) 9.4 Eos % (Auto) 2.1 Baso % (Auto) 0.3 Absolute Neuts (auto) 9.9 H Absolute Lymphs (auto) 0.59 L Nucleated RBC % 0 Sodium 136 Potassium 3.5 Chloride 92 L Carbon Dioxide 32.0 Anion Gap 12 BUN 10 Creatinine 0.88 Estim Creat Clear Calc 119.44 Est GFR (MDRD) Non-Af 102 BUN/Creatinine Ratio 11.0 Glucose 95 Calcium 9.0 Troponin T High Sens 7 Troponin T Hi Sens 2 Hr 8 NT pro BNP II 122 Radiography Chest X-Ray - ED: 2 View, Read by ED Physician, Read by Radiologist, Heart, Lungs, Mediastinum, Bony Structures, No Acute Disease and Chronic Changes Diagnostic Testing: Clinical Impression(s) from Imaging Studies Chest X-Ray 11/18/24 08:15 IMPRESSION: Cardiomegaly. No evidence of acute cardiopulmonary pathology. Reading Location: [id number] Chest CTA 11/18/24 09:23 IMPRESSION: Patchy right basilar infiltrate. Minimal increased markings in the right middle lobe. No evidence of pulmonary embolism. [facility], 2 views, AP and lateral, interpreted by by myself and the radiologist shows chronic changes. Mild cardiomegaly. No acute process. No pneumonia. Rhythm Strip Rhythm Strip: Sinus Rhythm Rate: 88 Ectopy: None EKG Initial EKG: Attestation: I personally reviewed and interpreted this EKG as follows: Interpretation: Sinus Rhythm and No Acute Injury Pattern Comments: Normal sinus rhythm rate of 88 no acute signs of [place] or ischemia. No significant change from July 2024. Prior EKG tracings: available for review Prior: Unchanged Discharge Plan Triage Chief Complaint: Cough ED Provider: Markus Carrasco Dx/Rx/DC Orders Clinical Impression: Aspiration pneumonia, Schizoaffective disorder, Hypoxia, History of COPD Prescriptions: No Action amlodipine [Norvasc] 10 mg tablet 10 mg PO QDAY Tubersol 5 tub. unit /0.1 mL solution 0.1 ml intradermal ONCE Rx Instructions: as a single dose calcium carbonate [Tums] 200 mg calcium (500 mg) tablet,chewable 200 mg PO TID acetaminophen [Tylenol] 325 mg tablet 650 mg PO ONCE PRN (Reason: fever or pain) albuterol sulfate 0.63 mg/3 mL solution for nebulization 0.63 mg inhalation Q4H PRN (Reason: Shortness Of Breath) cyanocobalamin (vitamin B-12) 1,000 mcg Tablet 1,000 mcg PO WE ferrous sulfate [FeroSul] 325 mg (65 mg iron) Tablet 325 mg PO BID benztropine 1 mg Tablet 1 mg PO BID fluticasone propionate [Flonase Allergy Relief] 50 mcg/actuation [place],Suspension 1 spray INTRANASAL DAILY fludrocortisone 0.1 mg Tablet 0.1 mg PO DAILY escitalopram oxalate [Lexapro] 10 mg Tablet 10 mg PO BID quetiapine [Seroquel XR] 300 mg Tablet Extended Release 24 Hr 600 mg PO QHS Fanapt 6 mg tablet 6 mg PO DAILY Fanapt 12 mg tablet 12 mg PO DAILY loperamide 2 mg Capsule 2 mg PO Q4H PRN (Reason: STOOL) aspirin 81 mg Tablet,Delayed Release (Dr/Ec) 81 mg PO DAILY magnesium hydroxide [Milk of Magnesia] 400 mg/5 mL Suspension 30 ml PO Q24H PRN (Reason: Constipation) calcium carbonate 500 mg calcium (1,250 mg) Tablet 500 mg PO BID propranolol 80 mg capsule,extended release 24 hr 80 mg PO DAILY alum-mag hydroxide-simeth 200-200-20 mg/5 mL Suspension 30 ml PO Q4H PRN (Reason: Heartburn) cholecalciferol (vitamin D3) [Vitamin D3] 50 mcg (2,000 unit) Tablet 50 mcg PO DAILY hydralazine 10 mg tablet 10 mg PO TID lorazepam 1 mg Tablet 2 mg PO TID Qty: 6 0RF lorazepam [Ativan] 2 mg Tablet 2 mg PO Q6H PRN (Reason: Agitation) Qty: 6 0RF docusate sodium [Colace] 100 mg capsule 100 mg PO BID polyethylene glycol 3350 [ClearLax] 17 gram/dose powder 17 g PO DAILY ergocalciferol (vitamin D2) 1,250 mcg (50,000 unit) capsule 1,250 mcg PO QWEEK folic acid 400 mcg tablet 1 mg PO DAILY hydrocortisone 5 mg tablet 15 mg PO DAILY lisinopril 20 mg tablet 20 mg PO DAILY Probiotic Blend 2 billion cell-50 mg capsule 1 cap PO DAILY Rx Instructions: give with meal/snack pantoprazole 40 mg tablet,delayed release (DR/EC) 40 mg PO DAILY divalproex 125 mg capsule, delayed rel sprinkle 250 mg PO Q8H lorazepam 2 mg/mL syringe 2 mg IM Q6H PRN (Reason: agitation) hydrochlorothiazide 25 mg tablet 25 mg PO DAILY potassium chloride 10 mEq capsule, extended release 30 meq PO DAILY Patient Comments: [NO ORIGINAL SIG] sennosides-docusate sodium [Stimulant Laxative Plus] 8.6-50 mg Tablet 2 tab PO BID Qty: 0 0RF Rx Instructions: Hold for diarrhea Primary Care Provider: Lex Jiang Referrals: Lex Jiang MD [Primary Care Provider] - Print Language: Maltese Disposition Disposition: Acute Care Hospital [facility]
[2024-11-18 07:49] LABS: Absolute Lymphocyte Count 0.59 X10^3/uL (0.83-4.51); Absolute Neutrophil Count 9.9 X10^3/uL (2.0-7.7); Basophil# 0.04 X10^3/uL; Basophil% 0.3 % (0-1); Eosinophil# 0.25 X10^3/uL; Eosinophils% 2.1 % (0-5); Hematocrit 35.9 % (40-54); Lymphocyte # 0.59 X10^3/ul (0.83-4.51); Lymphocyte % 4.9 % (19-41); Mean Corp Hgb Conc 33.4 g/dL (32-36); Mean Corpuscular Hgb 30.3 pg (27.0-32.0); Mean Corpuscular Volume 90.7 fL (80-94); Mean Platelet Vol. 9.3 fl (6.2-12.0); Monocyte# 1.12 X10^3/uL; Monocyte% 9.4 % (0-10); NRBC Flagged by Analyzer 0 % (0-5); POSITIVE DIFFERENTIAL YES; Platelet Count 183 K/mm3 (150-450); RBC Distribution Width CV 14.1 % (11.6-14.6); RBC Distribution Width SD 47.1 fl (35.1-43.9); Red Blood Count 3.96 M/mm3 (4.6-6.2); White Blood Count 11.9 K/mm3 (4.4-11.0)
[2024-11-18] MEDS: Albuterol 2.5 MG/3 ML VIAL.NEB. INHALATION (07:54)
[2024-11-18] MEDS: Ipratropium/Albuterol Sulfate 3 ML AMPUL.NEB INHALATION (07:54)
[2024-11-18] MEDS: MethylPREDNISolone 125 MG/2 ML Vial IV (08:09)
[2024-11-18 08:15] LABS: Anion Gap 12 (5-15); BUN 10 mg/dL (4-19); Chloride 92 mmol/L (98-108); Creatinine, Serum 0.88 mg/dL (0.70-1.20); EST Glomerular Filtration Rate 102 (>60); Estimated Creatinine Clearance 119.44 ml/min (50-250); Glucose 95 mg/dL (70-99); Potassium 3.5 mmol/L (3.3-5.1); Sodium Level 136 mmol/L (133-145)
--- NOTE | 2024-11-18 08:15 | RAD_ITS ---
PROCEDURE: CHEST PA AND LATERAL 11/18/2024 REASON FOR EXAM: COUGH AND HYPOXIA TECHNIQUE: Frontal and lateral views of the chest. COMPARISON: Frontal chest, 08/17/2024. FINDINGS: The lungs are clear. There is no lobar consolidation or pleural effusion. There is cardiomegaly. The visualized upper abdominal bowel gas pattern is unremarkable. There are no bony abnormalities of the chest. RAD/Chest PA and Lateral IMPRESSION: Cardiomegaly. No evidence of acute cardiopulmonary pathology. Reading Location: [place] [id number]
[2024-11-18 08:16] LABS: Pro- Brain NATRIURETIC PEPTIDE 122 pg/mL (<=900); Troponin T High Sensitivity 7 ng/L (<=22)
--- NOTE | 2024-11-18 09:23 | CT_ITS ---
PROCEDURE: CTA CHEST W/WO CONTRAST 11/18/2024 REASON FOR EXAM: DYSPNEA WITH HYPOXIA. CHEST X-RAY NEGATIVE. TECHNIQUE: CTA axial imaging of the chest with intravenous contrast. Multiplanar and multisequence images were obtained. PATIENT PREPARATION: Per protocol CONTRAST: Isovue 370 VOLUME: 100 mL One or more dose reduction techniques were used (e.g., Automated exposure control, adjustment of the mA and/or kV according to patient size, use of iterative reconstruction technique). RADIATION DOSE SUMMARY: CTDlvol: 16 mGy DLP: 523.68 mGycm . COMPARISON: Prior chest radiograph done earlier in the day. FINDINGS: Hardware: None Lymph nodes: No hilar or mediastinal lymph nodes. Heart: Unremarkable Thoracic Aorta: No thoracic aortic aneurysm or dissection. Pulmonary Vessels: No evidence of pulmonary embolism. Lungs and Airways: Patchy right basilar pulmonary infiltrate. Increased markings in the posterior aspect of the right middle lobe. Pleura: Minimal pleural effusion on the right. Upper Abdomen: Unremarkable Bones: Degenerative changes of the thoracic spine. CT/CTA Chest W/WO Contrast IMPRESSION: Patchy right basilar infiltrate. Minimal increased markings in the right middl e lobe. No evidence of pulmonary embolism. Reading Location: [place] [id number]
[2024-11-18 10:41] LABS: Troponin T High Sens 2 HR 8 ng/L (<=22)
--- NOTE | 2024-11-18 13:09 | PCM.HP.STD ---
HPI - General General Date of Admission: 11/18/24 Date of Service: 11/18/24 Chief Complaint: cough HPI Narrative TEGAN FUENTES, is a 54 M with a PMH as outlined who presents via the ED on 11/18/2024 with a complaint of hyposia and shortness of breath. HE was brought from his SNF with these complaints. Patient has a history of schizophrenia and so could not contribute much to the history. He is also legally blind. He could answer some questions he knew he was in with staff but was quite confused. He said he came in because he was short of breath and was coughing. He says that shortness of breath started acutely. He denied any chest pain or palpitations, nausea or vomiting. He really could not answer any more questions after that. U Vitals in the ED were BP of 164/71, pulse rate of 73, respiratory rate of 14 and temperature of 98.4 Fahrenheit. He was saturating at 96% on room air. CBC showed hemoglobin of 12 with WBC of 11.9 and platelets of 183. Chemistry showed sodium of 136 with potassium of 3.5 and bicarb of 32. Anion gap was 12 and creatinine was 0.88. Initial troponin was only 18 proBNP was only 122. Chest x-ray showed cardiomegaly with no evidence of acute cardiopulmonary pathology. CTA chest showed patchy right basilar infiltrate and minimal increased markings in the right middle lobe with no evidence of PE. He is being admitted to be managed for hypoxia due to probable aspiration pneumonia. [facility] Medical History Acidosis, lactic GURJIT (acute kidney injury) COPD (chronic obstructive pulmonary disease) Hypoxia Pneumonia MRSA (methicillin resistant staph aureus) culture positive Morbid obesity with BMI of 40.0-44.9, adult Intermittent explosive disorder Schizoaffective disorder Acute metabolic encephalopathy Bradycardia Chronic anal fissure Cellulitis Adrenocortical insufficiency Anemia Schizo affective schizophrenia Legally blind Intermittent explosive disorder COPD (chronic obstructive pulmonary disease) Hypertension Asthma Gastroparesis Cyclical vomiting Thrombocythemia Hypocalcemia Anxiety Home Medications ?Medication ?Instructions ?Recorded ?Last Taken ?Type albuterol sulfate 0.63 mg/3 mL 0.63 mg inhalation Q4H PRN 06/04/22 Unknown History solution for nebulization Shortness Of Breath benztropine 1 mg tablet 1 mg PO BID 06/04/22 07/23/22 History cyanocobalamin (vitamin B-12) 1,000 mcg PO WE SUPPLEMENT 06/04/22 07/24/22 08:00 History 1,000 mcg tablet escitalopram oxalate 10 mg tablet 10 mg PO BID MENTAL HEALTH 06/04/22 07/24/22 08:00 History (Lexapro) ferrous sulfate 325 mg (65 mg 325 mg PO BID SUPPLEMENT 06/04/22 07/24/22 08:00 History iron) tablet (FeroSul) fludrocortisone 0.1 mg tablet 0.1 mg PO DAILY 06/04/22 07/24/22 08:00 History fluticasone propionate 50 1 spray intranasal DAILY ALLERGIES 06/04/22 07/24/22 08:00 History mcg/actuation nasal spray,suspension (Flonase Allergy Relief) iloperidone 12 mg tablet (Fanapt) 12 mg PO DAILY MENTAL HEALTH 06/04/22 07/23/22 History iloperidone 6 mg tablet (Fanapt) 6 mg PO DAILY MENTAL HEALTH 06/04/22 07/24/22 08:00 History quetiapine 300 mg tablet,extended 600 mg PO QHS MENTAL HEALTH 06/04/22 07/23/22 History release 24 hr (Seroquel XR) aluminum-mag hydroxide-simethicone 30 ml PO Q4H PRN Heartburn 07/24/22 Unknown History 200 mg-200 mg-20 mg/5 mL oral susp aspirin 81 mg tablet,delayed 81 mg PO DAILY HEART HEALTH 07/24/22 07/24/22 08:00 History release calcium carbonate 500 mg PO BID SUPPLEMENT 07/24/22 07/24/22 08:00 History cholecalciferol (vitamin D3) 50 50 mcg PO DAILY SUPPLEMENT 07/24/22 07/24/22 08:00 History mcg (2,000 unit) tablet (Vitamin D3) loperamide 2 mg capsule 2 mg PO Q4H PRN STOOL 07/24/22 07/24/22 09:30 History magnesium hydroxide 400 mg/5 mL 30 ml PO Q24H PRN Constipation 07/24/22 Unknown History oral suspension (Milk of Magnesia) propranolol 80 mg capsule,24 80 mg PO DAILY BLOOD PRESSURE 07/24/22 07/24/22 08:00 History hr,extended release L.acidophil-L.casei-B.bifid-B.longum-FOS 1 cap PO DAILY 06/24/24 Unknown History 2 billion cell-50 mg capsule (Probiotic Blend) divalproex 125 mg capsule,delayed 250 mg PO Q8H 06/24/24 Unknown History release sprinkle folic acid 400 mcg tablet 1 mg PO DAILY 06/24/24 Unknown History hydrocortisone 5 mg tablet 15 mg PO DAILY 06/24/24 Unknown History lisinopril 20 mg tablet 20 mg PO DAILY 06/24/24 Unknown History pantoprazole 40 mg tablet,delayed 40 mg PO DAILY 06/24/24 Unknown History release hydralazine 10 mg tablet 10 mg PO TID 07/16/24 Unknown History lorazepam 1 mg tablet 2 mg (2 x 1 mg) PO TID #6 tabs 07/20/24 Unknown Rx lorazepam 2 mg tablet (Ativan) 2 mg PO Q6H PRN Agitation #6 tabs 07/20/24 Unknown Rx hydrochlorothiazide 25 mg tablet 25 mg PO DAILY 08/17/24 Unknown History lorazepam 2 mg/mL injection syringe 2 mg IM Q6H PRN agitation 08/17/24 Unknown History potassium chloride 10 mEq 30 meq PO DAILY 08/17/24 Unknown History capsule,extended release sennosides 8.6 mg-docusate sodium 2 tab PO BID #0 tabs 08/20/24 Unknown Rx 50 mg tablet (Stimulant Laxative Plus) acetaminophen 325 mg tablet 650 mg PO ONCE PRN fever or pain 10/11/24 Unknown History (Tylenol) amlodipine 10 mg tablet (Norvasc) 10 mg PO QDAY 10/11/24 Unknown History calcium carbonate (Tums) 200 mg PO TID 10/11/24 Unknown History tuberculin PPD 5 tub. unit/0.1 mL 0.1 ml intradermal ONCE 10/11/24 Unknown History intradermal injection solution (Tubersol) docusate sodium 100 mg capsule 100 mg PO BID 11/18/24 Unknown History (Colace) ergocalciferol (vitamin D2) 1,250 1,250 mcg PO QWEEK 11/18/24 Unknown History mcg (50,000 unit) capsule polyethylene glycol 3350 17 17 g PO DAILY 11/18/24 Unknown History gram/dose oral powder (ClearLax) Allergy/AdvReac Type Severity Reaction Status Date / Time acetic acid Allergy PT UNABLE Verified 11/18/24 10:04 TO RESPOND-NEEDS F/U nut - unspecified (nuts) Allergy PT UNABLE Verified 11/18/24 10:04 TO RESPOND-NEEDS F/U Penicillins Allergy PT UNABLE Verified 11/18/24 10:04 TO RESPOND-NEEDS F/U risperidone Allergy PT UNABLE Verified 11/18/24 10:04 TO RESPOND-NEEDS F/U Family History Father COPD (chronic obstructive pulmonary disease) Mother Hypertension Surgical History History of eye surgery S/P repair of hydrocele Social History housing: other details: Nursing facility with psychiatric focus. Smoking Status: Never smoker alcohol intake: never substance use type: does not use ROS ROS Narrative limited due to schizoaffective disorder and lethargy Constitutional Constitutional: Reports fatigue and malaise; Denies anorexia or weakness Eyes Eyes: Reports change in vision and other Details: patient legally blind ENT HEENT: Reports dysphagia; Denies headache(s) or sore throat Cardiovascular Cardiovascular: Reports dyspnea on exertion; Denies chest pain, edema, orthopnea, palpitations or paroxysmal nocturnal dyspnea Respiratory/Chest Respiratory/Chest: Reports cough, dyspnea, shortness of breath at rest and shortness of breath with exertion Gastrointestinal Gastrointestinal: Denies nausea or vomiting Genitourinary Genitourinary: Denies dysuria Neurologic Neurologic: Reports confusion Vital Signs Vital Signs Vital Signs: 11/18/24 07:21 11/18/24 07:54 11/18/24 07:55 Temperature 98.7 F Temperature Source Oral Pulse Rate 109 H Respiratory Rate 19 H Respiratory Effort Short of Breath Respiratory Pattern Blood Pressure 174/90 H Blood Pressure Mean 118 Pulse Ox 90 97 Oxygen Delivery Method Room Air Room Air Nasal Cannula Oxygen Flow Rate (L/min) 2 11/18/24 07:55 11/18/24 07:56 11/18/24 08:42 Temperature 98.8 F Temperature Source Oral Pulse Rate 92 86 Respiratory Rate 18 17 Respiratory Effort Respiratory Pattern Normal Blood Pressure 144/81 H Blood Pressure Mean 102 Pulse Ox 98 93 Oxygen Delivery Method Nasal Cannula Nasal Cannula Oxygen Flow Rate (L/min) 2 2 11/18/24 09:00 11/18/24 10:00 11/18/24 11:00 Temperature 98.7 F 98.6 F 98.2 F Temperature Source Oral Oral Oral Pulse Rate 80 78 74 Respiratory Rate 18 18 16 Respiratory Effort Respiratory Pattern Blood Pressure 137/108 H 141/81 H 157/91 H Blood Pressure Mean 117 101 113 Pulse Ox 92 92 93 Oxygen Delivery Method Nasal Cannula Nasal Cannula Nasal Cannula Oxygen Flow Rate (L/min) 2 2 2 11/18/24 12:00 11/18/24 13:00 11/18/24 13:07 Temperature 98.4 F 98.2 F 98.4 F Temperature Source Oral Oral Pulse Rate 79 76 73 Respiratory Rate 14 21 H 14 Respiratory Effort Respiratory Pattern Blood Pressure 172/91 H 167/88 H 164/71 H Blood Pressure Mean 118 112 102 Pulse Ox 94 94 96 Oxygen Delivery Method Nasal Cannula Room Air Oxygen Flow Rate (L/min) 2 Weight Weight: 258 lb 13.163 oz Body Mass Index (BMI) 39.3 Physical Exam Const alert Constitutional Narrative: class II obesity General Appearance: cooperative HEENT normocephalic, head/scalp atraumatic and moist oral mucous membranes HEENT Narrative: patient legally blind Mouth: oral and palatal mucosa normal Eyes EOMs intact bilaterally Eyes Narrative: legally blind Resp Resp Narrative: Mildly diminished breath sounds bibasilarly. No wheezes and very few crackles. On 4 L of oxygen by nasal cannula. Cardio regular rate, regular rhythm, S1 normal heart sound, S2 normal heart sound and no murmurs GI normal to inspection, nondistended, normoactive bowel sounds, soft to palpation and non-tender Extremity normal to inspection and full ROM Neuro moves all extremities Neuro Narrative: Alert, oriented to person and place but not time. Psych Psych Narrative: Flat affect Results Lab / Micro Data 11/18/24 07:38 11/18/24 07:38 Labs: Laboratory Results - last 24 hr 11/18/24 07:38: WBC 11.9 H, RBC 3.96 L, Hgb 12.0 L, Hct 35.9 L, MCV 90.7, MCH 30.3, MCHC 33.4, RDW Std Deviation 47.1 H, RDW Coeff of Eleanor 14.1, Plt Count 183, MPV 9.3, Immature Gran % (Auto) 0.300, Neut % (Auto) 83.0 H, Lymph % (Auto) 4.9 L, [place] % (Auto) 9.4, Eos % (Auto) 2.1, Baso % (Auto) 0.3, Absolute Neuts (auto) 9.9 H, Absolute Lymphs (auto) 0.59 L, Nucleated RBC % 0, Sodium 136, Potassium 3.5, Chloride 92 L, Carbon Dioxide 32.0, Anion Gap 12, BUN 10, Creatinine 0.88, Estim Creat Clear Calc 119.44, Est GFR (MDRD) Non-Af 102, BUN/Creatinine Ratio 11.0, Glucose 95, Calcium 9.0, Troponin T High Sens 7, NT pro BNP II 122 11/18/24 10:00: Troponin T Hi Sens 2 Hr 8 Micro: Microbiology 11/18/24 07:45 Mucosa - Nose SARS-CoV-2, Influenza & RSV (PCR) - Final Imaging Radiology Impression Chest X-Ray 11/18/24 08:15 IMPRESSION: Cardiomegaly. No evidence of acute cardiopulmonary pathology. Reading Location: [place] [id number] Chest CTA 11/18/24 09:23 IMPRESSION: Patchy right basilar infiltrate. Minimal increased markings in the right middle lobe. No evidence of pulmonary embolism. Reading Location: [facility] Assessment & Plan Assessment/Plan (1) Aspiration pneumonia: PLAN: Plan #Hypoxia due to probable aspiration pneumonia. Admitted from his care home facility on account of hypoxia. CTA chest showed patchy right basilar pulmonary infiltrate with increased markings in the posterior lobe of the right middle lobe with minimal pleural effusion on the right. [facility]. Hydrate gently with IV fluids Started on IV Unasyn. Get sputum cultures. WBCs 11.9. Titrate oxygen to maintain saturation above 90%. Breathing treatments bronchodilators. #History of schizoaffective disorder: On benztropine and Seroquel #History of COPD: Not in exacerbation. Breathing transferred bronchodilators. #Hypertension: Amlodipine and hydrochlorothiazide as well as lisinopril and hydralazine #DVT prophylaxis: Lovenox CODE STATUS: DNR [facility] Charges/Coding Visit Charges Inpatient E&M: 72864 Init Hosp L3
[2024-11-18] MEDS: Clindamycin 900 MG/50 ML BAG 100 MG IV (14:15)
[2024-11-18] MEDS: 0.9% Saline Lock 10 ML Syringe IV (17:07)
[2024-11-18] MEDS: 0.9% Normal Saline (1000mL) 1,000 ML 125 ML IV (17:07)
[2024-11-18] MEDS: Calcium Carbonate 500 MG Tablet PO ×2 (17:35→21:51)
[2024-11-18] MEDS: hydrALAZINE 10 MG Tablet PO ×2 (17:35→21:52)
[2024-11-18] MEDS: Ferrous Sulfate 325 MG Tablet PO (17:35)
[2024-11-18] MEDS: Docusate Sodium 100 MG Capsule PO (21:51)
[2024-11-18] MEDS: Senna/Docusate Sodium 1 Tablet 2 TABLET PO (21:52)
[2024-11-18] MEDS: Escitalopram Oxalate 10 MG Tablet PO (21:52)
[2024-11-18] MEDS: QUEtiapine 100 MG Tablet 300 MG PO (21:52)
[2024-11-18] MEDS: LORazepam 1 MG Tablet 2 MG PO (21:52)
[2024-11-18] MEDS: Benztropine Mesylate 0.5 MG TABLET 1 MG PO (21:55)
[2024-11-18] MEDS: Divalproex Sodium 125 MG SPRINKLE 250 MG PO (21:57)
[2024-11-19] VITALS (11 sets, daily range): BP systolic 144–172; BP diastolic 80–91; PULSE 74–86; RESP 16–20; TEMP 36.2–37; O2SAT 84–99
[2024-11-19] MEDS: 0.9% Normal Saline (1000mL) 1,000 ML 125 ML IV (01:27)
[2024-11-19] MEDS: Calcium Carbonate 500 MG Tablet PO ×3 (05:50→23:02)
[2024-11-19] MEDS: hydrALAZINE 10 MG Tablet PO ×3 (05:50→23:02)
[2024-11-19] MEDS: Divalproex Sodium 125 MG SPRINKLE 250 MG PO ×3 (05:51→23:05)
[2024-11-19] MEDS: LORazepam 1 MG Tablet 2 MG PO ×3 (05:54→23:08)
[2024-11-19 06:45] LABS: Absolute Lymphocyte Count 0.54 X10^3/uL (0.83-4.51); Absolute Neutrophil Count 7.3 X10^3/uL (2.0-7.7); Basophil# 0.01 X10^3/uL; Basophil% 0.1 % (0-1); Hematocrit 31.7 % (40-54); Hemoglobin 10.7 g/dL (13.0-16.5); Lymphocyte # 0.54 X10^3/ul (0.83-4.51); Lymphocyte % 6.2 % (19-41); Mean Corp Hgb Conc 33.8 g/dL (32-36); Mean Corpuscular Hgb 30.4 pg (27.0-32.0); Mean Corpuscular Volume 90.1 fL (80-94); Mean Platelet Vol. 9.8 fl (6.2-12.0); Monocyte# 0.79 X10^3/uL; Monocyte% 9.1 % (0-10); NRBC Flagged by Analyzer 0 % (0-5); Neutrophil # 7.32 X10^3/uL (2.7-7.7); Neutrophil % 84.1 % (47-70); POSITIVE DIFFERENTIAL YES; Platelet Count 182 K/mm3 (150-450); RBC Distribution Width CV 14.5 % (11.6-14.6); RBC Distribution Width SD 47.7 fl (35.1-43.9); Red Blood Count 3.52 M/mm3 (4.6-6.2); White Blood Count 8.7 K/mm3 (4.4-11.0)
[2024-11-19 07:11] LABS: Anion Gap 11 (5-15); BUN 13 mg/dL (4-19); BUN/Creat Ratio 16.8 RATIO (10-20); Calcium,Total 8.6 mg/dL (7.6-11.0); Chloride 91 mmol/L (98-108); Creatinine, Serum 0.75 mg/dL (0.70-1.20); EST Glomerular Filtration Rate 107 (>60); Estimated Creatinine Clearance 132.12 ml/min (50-250); Glucose 120 mg/dL (70-99); Potassium 3.5 mmol/L (3.3-5.1); Sodium Level 132 mmol/L (133-145)
[2024-11-19] MEDS: Potassium Chloride Oral Tablet 10 MEQ 30 MEQ PO (08:16)
[2024-11-19] MEDS: Senna/Docusate Sodium 1 Tablet 2 TABLET PO ×2 (08:16→23:04)
[2024-11-19] MEDS: Folic Acid 1 MG Tablet PO (08:17)
[2024-11-19] MEDS: amLODIPine 10 MG Tablet PO (08:17)
[2024-11-19] MEDS: Polyethylene Glycol 3350 17 GM PACKET PO (08:18)
[2024-11-19] MEDS: Lisinopril 20 MG Tablet PO (08:18)
[2024-11-19] MEDS: QUEtiapine 100 MG Tablet 300 MG PO ×2 (08:20→23:04)
[2024-11-19] MEDS: Benztropine Mesylate 0.5 MG TABLET 1 MG PO ×2 (08:20→23:03)
[2024-11-19] MEDS: Cholecalciferol (VIT D3) 25 MCG TABLET (1,000 UNITS) 50 MCG PO (08:21)
[2024-11-19] MEDS: Escitalopram Oxalate 10 MG Tablet PO ×2 (08:24→23:03)
[2024-11-19] MEDS: Propranolol LA 80 MG Capsule PO (08:24)
[2024-11-19] MEDS: Lactobacillis Acidophilus 1 CAP PO (08:25)
[2024-11-19] MEDS: Fludrocortisone Acetate 0.1 MG Tablet PO ×2 (08:25→08:37)
[2024-11-19] MEDS: Aspirin E.C. 81 MG Tablet PO (08:25)
[2024-11-19] MEDS: Pantoprazole Sodium 40 MG Tablet PO (08:25)
[2024-11-19] MEDS: Enoxaparin 40 MG/0.4 ML Syringe SC (08:26)
[2024-11-19] MEDS: Hydrocortisone 10 MG Tablet 15 MG PO (08:33)
[2024-11-19] MEDS: hydroCHLOROthiazide 25 MG Tablet PO (08:37)
[2024-11-19] MEDS: Fluticasone 0.05% 1 SPRAY NASAL.SRY NASAL (08:38)
--- NOTE | 2024-11-19 08:53 | NURSING ---
Pt completely soaked in urine. Assisted into shower then into chair. eating breakfast at this time. Chair alarm on and call light in reach.
--- NOTE | 2024-11-19 09:55 | CASEMGMT ---
Social Work Pt is admitted from [facility]. Phone call to pt Guardian/Sister Courtney Oates who confirms plan is to return to [facility] at time of discharge. DC assistant credit manager updated and will send clinicals. Green Sheet placed on chart to facilitate weekend discharge. Plan: Return to [facility], when medically ready YOLI Moreno
--- NOTE | 2024-11-19 11:30 | CASEMGMT ---
Discharge Planning Updates faxed to [facility] with note that pt may return over the weekend. Jeannette Katz DC Planning Asst.
[2024-11-19] MEDS: Clindamycin 300 MG in Dextrose 5%-Water (50mL Bag) 50 ML 150 MG IV ×3 (12:20→23:39)
[2024-11-19] MEDS: Ferrous Sulfate 325 MG Tablet PO ×2 (12:21→18:30)
--- NOTE | 2024-11-19 15:36 | PN_ITS ---
Subjective Subjective Patient seen and examined today. He was more alert and oriented and communicative. He said he felt better and had no complaints. He was on room air this morning saturating at 91% at time of my review with his nurse by his bedside. He denied any coughing or chest pain, palpitations, dizziness, nausea or vomiting or any other such symptoms. He was subsequently put back on 3 L of oxygen later in the day. Speech therapy is on board. He has otherwise remained hemodynamically. Objective Data Objective Data Vital Signs: Vital Signs Temp Pulse Resp BP Pulse Ox O2 Del Method O2 Flow Rate 98.0 F 79 20 H 146/91 H 96 Nasal Cannula 3 11/19/24 14:34 11/19/24 15:08 11/19/24 14:34 11/19/24 14:34 11/19/24 14:34 11/19/24 15:10 11/19/24 15:10 Oxygen Flow Rate (L/min) 3 Oxygen Delivery Method Nasal Cannula Weight: 246 lb 4 oz Body Mass Index (BMI) 39.7 Intake & Output: Intake and Output for Last 24 Hours 11/17/24 11/18/24 11/19/24 23:59 23:59 23:59 Intake Total 710 / 710 4102 / 4102 Output Total 740 / 740 700 / 700 Balance -30 / -30 3402 / 3402 Lab / Micro Data 11/19/24 05:22 11/19/24 05:22 Labs: Laboratory Results - last 24 hr 11/19/24 05:22: WBC 8.7, RBC 3.52 L, Hgb 10.7 L, Hct 31.7 L, MCV 90.1, MCH 30.4, MCHC 33.8, RDW Std Deviation 47.7 H, RDW Coeff of Eleanor 14.5, Plt Count 182, MPV 9.8, Immature Gran % (Auto) 0.500, Neut % (Auto) 84.1 H, Lymph % (Auto) 6.2 L, [place] % (Auto) 9.1, Eos % (Auto) 0.0, Baso % (Auto) 0.1, Absolute Neuts (auto) 7.3, Absolute Lymphs (auto) 0.54 L, Nucleated RBC % 0, Sodium 132 L, Potassium 3.5, Chloride 91 L, Carbon Dioxide 30.0, Anion Gap 11, BUN 13, Creatinine 0.75, Estim Creat Clear Calc 132.12, Est GFR (MDRD) Non-Af 107, BUN/Creatinine Ratio 16.8, Glucose 120 H, Calcium 8.6 Micro: Microbiology 11/18/24 16:50 Mucosa - Nasopharyngeal Respiratory Panel (PCR) - Final 11/18/24 07:45 Mucosa - Nose SARS-CoV-2, Influenza & RSV (PCR) - Final Rhythm Strip Rhythm Strip: Sinus Rhythm Rate: 88 Ectopy: None Physical Exam Const alert Constitutional Narrative: class II obesity General Appearance: cooperative HEENT normocephalic, head/scalp atraumatic and moist oral mucous membranes Eyes Eyes Narrative: legally blind Neck supple and no JVD Lymph Lymphatic: no lymphedema noted Resp Resp Narrative: Mildly diminished breath sounds bibasilarly. No wheezes and very few crackles. On 3L of oxygen by nasal cannula. Cardio regular rate, regular rhythm, S1 normal heart sound, S2 normal heart sound and no murmurs GI normal to inspection, nondistended, normoactive bowel sounds, soft to palpation and non-tender Extremity normal to inspection and full ROM General Extremity: no tenderness to palpation of joints or extremities Skin General Skin Exam: no breakdown Neuro moves all extremities Neuro Narrative: Alert, oriented to person, place and time. LEgally blind Motor Exam: general weakness Psych cooperative and affect normal Psych Narrative: patient very garrulous Appearance: appropriate Assessment & Plan Assessment/Plan (1) Aspiration pneumonia: PLAN: Plan #Hypoxia due to probable aspiration pneumonia. * was weaned down to room air earlier today but now on 3L of oxygen. * CTA chest showed patchy right basilar pulmonary infiltrate with increased markings in the posterior lobe of the right middle lobe with minimal pleural effusion on the right. * was to be started on IV unasyn, but this was not started due to allergy * place on IV clindamycin * respiratory panel negative * sputum cultures pending. Speech therapy on board. * Titrate oxygen to maintain saturation above 90%. Breathing treatments bronchodilators. * wbc down to 8.7. * #History of schizoaffective disorder: On benztropine and Seroquel #History of COPD: Not in exacerbation. Breathing transferred bronchodilators. #Hypertension: Amlodipine and hydrochlorothiazide as well as lisinopril and hydralazine #DVT prophylaxis: Lovenox CODE STATUS: DNR CC from his documents from the alf. Charges/Coding Visit Charges Inpatient E&M: 19940 Subs Hosp L2
[2024-11-19] MEDS: Docusate Sodium 100 MG Capsule PO (23:03)
[2024-11-20] VITALS (10 sets, daily range): BP systolic 144–164; BP diastolic 80–94; PULSE 72–82; RESP 18–20; TEMP 36.6–36.8; O2SAT 88–95
[2024-11-20] MEDS: Divalproex Sodium 125 MG SPRINKLE 250 MG PO ×3 (06:09→22:18)
[2024-11-20] MEDS: hydrALAZINE 10 MG Tablet PO ×3 (06:09→22:17)
[2024-11-20] MEDS: Calcium Carbonate 500 MG Tablet PO ×3 (06:09→22:20)
[2024-11-20] MEDS: Clindamycin 300 MG in Dextrose 5%-Water (50mL Bag) 50 ML 150 MG IV ×3 (06:12→18:11)
[2024-11-20] MEDS: LORazepam 1 MG Tablet 2 MG PO ×2 (06:13→22:17)
[2024-11-20 06:48] LABS: Absolute Lymphocyte Count 1.04 X10^3/uL (0.83-4.51); Absolute Neutrophil Count 5.7 X10^3/uL (2.0-7.7); Basophil# 0.02 X10^3/uL; Basophil% 0.3 % (0-1); Eosinophil# 0.17 X10^3/uL; Eosinophils% 2.2 % (0-5); Hematocrit 35.1 % (40-54); Hemoglobin 11.4 g/dL (13.0-16.5); Lymphocyte # 1.04 X10^3/ul (0.83-4.51); Lymphocyte % 13.3 % (19-41); Mean Corp Hgb Conc 32.5 g/dL (32-36); Mean Corpuscular Hgb 29.9 pg (27.0-32.0); Mean Corpuscular Volume 92.1 fL (80-94); Mean Platelet Vol. 9.8 fl (6.2-12.0); Monocyte# 0.91 X10^3/uL; Monocyte% 11.6 % (0-10); NRBC Flagged by Analyzer 0 % (0-5); Neutrophil # 5.67 X10^3/uL (2.7-7.7); Neutrophil % 72.3 % (47-70); Platelet Count 183 K/mm3 (150-450); RBC Distribution Width CV 14.6 % (11.6-14.6); RBC Distribution Width SD 49.1 fl (35.1-43.9); Red Blood Count 3.81 M/mm3 (4.6-6.2); White Blood Count 7.8 K/mm3 (4.4-11.0)
[2024-11-20 07:13] LABS: Anion Gap 9 (5-15); BUN 11 mg/dL (4-19); BUN/Creat Ratio 13.7 RATIO (10-20); Calcium,Total 8.9 mg/dL (7.6-11.0); Carbon Dioxide 33.6 mmol/L (21.0-32.0); Chloride 96 mmol/L (98-108); Creatinine, Serum 0.79 mg/dL (0.70-1.20); EST Glomerular Filtration Rate 106 (>60); Estimated Creatinine Clearance 125.43 ml/min (50-250); Glucose 97 mg/dL (70-99); Potassium 3.8 mmol/L (3.3-5.1); Sodium Level 139 mmol/L (133-145)
[2024-11-20] MEDS: Fluticasone 0.05% 1 SPRAY NASAL.SRY NASAL (08:37)
[2024-11-20] MEDS: Cholecalciferol (VIT D3) 25 MCG TABLET (1,000 UNITS) 50 MCG PO (08:38)
[2024-11-20] MEDS: hydroCHLOROthiazide 25 MG Tablet PO (08:38)
[2024-11-20] MEDS: Lisinopril 20 MG Tablet PO (08:39)
[2024-11-20] MEDS: Docusate Sodium 100 MG Capsule PO ×2 (08:39→22:18)
[2024-11-20] MEDS: QUEtiapine 100 MG Tablet 300 MG PO ×2 (08:39→22:18)
[2024-11-20] MEDS: Enoxaparin 40 MG/0.4 ML Syringe SC (08:39)
[2024-11-20] MEDS: Propranolol LA 80 MG Capsule PO (08:40)
[2024-11-20] MEDS: Polyethylene Glycol 3350 17 GM PACKET PO (08:40)
[2024-11-20] MEDS: Potassium Chloride Oral Tablet 10 MEQ 30 MEQ PO (08:40)
[2024-11-20] MEDS: Lactobacillis Acidophilus 1 CAP PO (08:41)
[2024-11-20] MEDS: amLODIPine 10 MG Tablet PO (08:41)
[2024-11-20] MEDS: Senna/Docusate Sodium 1 Tablet 2 TABLET PO ×2 (08:41→22:18)
[2024-11-20] MEDS: Escitalopram Oxalate 10 MG Tablet PO ×2 (08:42→22:19)
[2024-11-20] MEDS: Hydrocortisone 10 MG Tablet 15 MG PO (08:42)
[2024-11-20] MEDS: Aspirin E.C. 81 MG Tablet PO (08:42)
[2024-11-20] MEDS: Pantoprazole Sodium 40 MG Tablet PO (08:43)
[2024-11-20] MEDS: Benztropine Mesylate 0.5 MG TABLET 1 MG PO ×2 (08:43→22:19)
[2024-11-20] MEDS: Folic Acid 1 MG Tablet PO (08:48)
[2024-11-20] MEDS: 0.9% Normal Saline (1000mL) 1,000 ML 100 ML IV (10:53)
[2024-11-20] MEDS: Ferrous Sulfate 325 MG Tablet PO ×2 (10:54→15:58)
--- NOTE | 2024-11-20 11:55 | PN_ITS ---
Subjective Subjective Patient seen and examined. He was more lethargic today and so was not really communicative. He was on room air. He denied having any active complaints. He denied any fever or chills, palpitations, nausea or vomiting. Review systems otherwise negative. He is on 2 L of oxygen. According to his nurse, speech therapy evaluated him he is at risk of aspiration so is for barium swallow on Friday. He is on modified diet. Speech therapy. Objective Data Objective Data Vital Signs: Vital Signs Temp Pulse Resp BP Pulse Ox O2 Del Method O2 Flow Rate 97.8 F 74 20 H 164/85 H 93 Nasal Cannula 2 11/20/24 08:54 11/20/24 08:54 11/20/24 08:54 11/20/24 08:54 11/20/24 08:54 11/20/24 08:54 11/20/24 08:54 Oxygen Flow Rate (L/min) 2 Oxygen Delivery Method Nasal Cannula Weight: 246 lb 4 oz Body Mass Index (BMI) 39.7 Intake & Output: Intake and Output for Last 24 Hours 11/18/24 11/19/24 11/20/24 23:59 23:59 23:59 Intake Total 710 / 710 4514 / 4766 804 / 804 Output Total 740 / 740 700 / 800 1300 / 1300 Balance -30 / -30 3814 / 3966 -496 / -496 Lab / Micro Data 11/20/24 05:22 11/20/24 05:22 Labs: Laboratory Results - last 24 hr 11/20/24 05:22: WBC 7.8, RBC 3.81 L, Hgb 11.4 L, Hct 35.1 L, MCV 92.1, MCH 29.9, MCHC 32.5, RDW Std Deviation 49.1 H, RDW Coeff of Eleanor 14.6, Plt Count 183, MPV 9.8, Immature Gran % (Auto) 0.300, Neut % (Auto) 72.3 H, Lymph % (Auto) 13.3 L, [place] % (Auto) 11.6 H, Eos % (Auto) 2.2, Baso % (Auto) 0.3, Absolute Neuts (auto) 5.7, Absolute Lymphs (auto) 1.04, Nucleated RBC % 0, Sodium 139, Potassium 3.8, Chloride 96 L, Carbon Dioxide 33.6 H, Anion Gap 9, BUN 11, Creatinine 0.79, Estim Creat Clear Calc 125.43, Est GFR (MDRD) Non-Af 106, BUN/Creatinine Ratio 13.7, Glucose 97, Calcium 8.9 Micro: Microbiology 11/18/24 16:50 Mucosa - Nasopharyngeal Respiratory Panel (PCR) - Final 11/18/24 07:45 Mucosa - Nose SARS-CoV-2, Influenza & RSV (PCR) - Final Rhythm Strip Rhythm Strip: Sinus Rhythm Rate: 88 Ectopy: None Physical Exam Const Constitutional Narrative: class II obesity, lethargic today Orientation / Consciousness: lethargic HEENT normocephalic, head/scalp atraumatic, moist oral mucous membranes and oropharynx normal Eyes EOMs intact bilaterally Eyes Narrative: legally blind Neck supple and no JVD Lymph Lymphatic: no lymphedema noted Resp Resp Narrative: Mildly diminished breath sounds bibasilarly. No wheezes and no crackles. On 2L of oxygen by nasal cannula. Cardio regular rate, regular rhythm, S1 normal heart sound, S2 normal heart sound and no murmurs GI normal to inspection, nondistended, normoactive bowel sounds, soft to palpation and non-tender Extremity normal to inspection and full ROM General Extremity: no tenderness to palpation of joints or extremities Skin General Skin Exam: no breakdown Neuro moves all extremities Neuro Narrative: Alert, oriented to person, place and time. Legally blind Motor Exam: general weakness Psych cooperative and affect normal Psych Narrative: patient very garrulous Appearance: appropriate Assessment & Plan Assessment/Plan (1) Aspiration pneumonia: PLAN: Plan #Hypoxia due to probable aspiration pneumonia. * was weaned down to room air earlier today but now on 3L of oxygen. * CTA chest showed patchy right basilar pulmonary infiltrate with increased markings in the posterior lobe of the right middle lobe with minimal pleural effusion on the right. * on IV clindamycin * respiratory panel negative * sputum cultures pending. * Speech therapy on board. He does have evidence of dysphagia and aspirations on modified diet. For barium swallow on Friday. * Titrate oxygen to maintain saturation above 90%. Breathing treatments bronchodilators. * wbc down to 8.7. * Cc barely having any oral intake to hydrate gently with IV fluids normal saline at 100 cc/h x 2 bags today. * #History of schizoaffective disorder: On benztropine and Seroquel #History of COPD: Not in exacerbation. Breathing transferred bronchodilators. #Hypertension: Amlodipine and hydrochlorothiazide as well as lisinopril and hydralazine #DVT prophylaxis: Lovenox CODE STATUS: DNR CC from his documents from the long-term. Charges/Coding Visit Charges Inpatient E&M: 42639 Subs Hosp L2
[2024-11-20] MEDS: 0.9% Saline Lock 10 ML Syringe IV (18:11)
[2024-11-21] VITALS (8 sets, daily range): BP systolic 135–154; BP diastolic 78–87; PULSE 76–88; RESP 18–20; TEMP 36.7–37.1; O2SAT 92–96
[2024-11-21] MEDS: Clindamycin 300 MG in Dextrose 5%-Water (50mL Bag) 50 ML 150 MG IV ×5 (00:12→23:57)
[2024-11-21] MEDS: Calcium Carbonate 500 MG Tablet PO ×3 (05:29→22:02)
[2024-11-21] MEDS: hydrALAZINE 10 MG Tablet PO ×3 (05:30→22:02)
[2024-11-21] MEDS: Divalproex Sodium 125 MG SPRINKLE 250 MG PO ×3 (05:31→22:02)
[2024-11-21 07:10] LABS: Absolute Lymphocyte Count 1.03 X10^3/uL (0.83-4.51); Absolute Neutrophil Count 4.4 X10^3/uL (2.0-7.7); Basophil# 0.05 X10^3/uL; Basophil% 0.8 % (0-1); Eosinophil# 0.39 X10^3/uL; Hematocrit 34.4 % (40-54); Hemoglobin 11.3 g/dL (13.0-16.5); Lymphocyte # 1.03 X10^3/ul (0.83-4.51); Lymphocyte % 15.7 % (19-41); Mean Corp Hgb Conc 32.8 g/dL (32-36); Mean Corpuscular Hgb 30.4 pg (27.0-32.0); Mean Corpuscular Volume 92.5 fL (80-94); Mean Platelet Vol. 9.5 fl (6.2-12.0); Monocyte% 10.7 % (0-10); NRBC Flagged by Analyzer 0 % (0-5); Neutrophil # 4.36 X10^3/uL (2.7-7.7); Neutrophil % 66.5 % (47-70); Platelet Count 185 K/mm3 (150-450); RBC Distribution Width CV 14.8 % (11.6-14.6); RBC Distribution Width SD 50.4 fl (35.1-43.9); Red Blood Count 3.72 M/mm3 (4.6-6.2); White Blood Count 6.6 K/mm3 (4.4-11.0)
[2024-11-21 07:27] LABS: Anion Gap 11 (5-15); BUN 12 mg/dL (4-19); BUN/Creat Ratio 14.4 RATIO (10-20); Chloride 97 mmol/L (98-108); Creatinine, Serum 0.85 mg/dL (0.70-1.20); EST Glomerular Filtration Rate 103 (>60); Estimated Creatinine Clearance 116.58 ml/min (50-250); Glucose 90 mg/dL (70-99); Potassium 3.8 mmol/L (3.3-5.1); Sodium Level 139 mmol/L (133-145)
[2024-11-21] MEDS: QUEtiapine 100 MG Tablet 300 MG PO ×2 (09:08→22:03)
[2024-11-21] MEDS: Polyethylene Glycol 3350 17 GM PACKET PO (09:09)
[2024-11-21] MEDS: Enoxaparin 40 MG/0.4 ML Syringe SC (09:09)
[2024-11-21] MEDS: Fluticasone 0.05% 1 SPRAY NASAL.SRY NASAL (09:09)
[2024-11-21] MEDS: Senna/Docusate Sodium 1 Tablet 2 TABLET PO (09:10)
[2024-11-21] MEDS: Benztropine Mesylate 0.5 MG TABLET 1 MG PO ×2 (09:10→22:03)
[2024-11-21] MEDS: Pantoprazole Sodium 40 MG Tablet PO (09:11)
[2024-11-21] MEDS: Propranolol LA 80 MG Capsule PO (09:11)
[2024-11-21] MEDS: Potassium Chloride Oral Tablet 10 MEQ 30 MEQ PO (09:11)
[2024-11-21] MEDS: Fludrocortisone Acetate 0.1 MG Tablet PO (09:11)
[2024-11-21] MEDS: amLODIPine 10 MG Tablet PO (09:12)
[2024-11-21] MEDS: Escitalopram Oxalate 10 MG Tablet PO ×2 (09:12→22:04)
[2024-11-21] MEDS: Lisinopril 20 MG Tablet PO (09:12)
[2024-11-21] MEDS: Docusate Sodium 100 MG Capsule PO (09:13)
[2024-11-21] MEDS: Lactobacillis Acidophilus 1 CAP PO (09:13)
[2024-11-21] MEDS: Aspirin E.C. 81 MG Tablet PO (09:26)
[2024-11-21] MEDS: Cholecalciferol (VIT D3) 25 MCG TABLET (1,000 UNITS) 50 MCG PO (09:26)
[2024-11-21] MEDS: Hydrocortisone 10 MG Tablet 15 MG PO (09:30)
[2024-11-21] MEDS: Folic Acid 1 MG Tablet PO (09:31)
[2024-11-21] MEDS: hydroCHLOROthiazide 25 MG Tablet PO (09:31)
[2024-11-21] MEDS: 0.9% Saline Lock 10 ML Syringe IV (12:07)
[2024-11-21] MEDS: Ferrous Sulfate 325 MG Tablet PO ×2 (12:07→15:38)
[2024-11-21] MEDS: 0.9% Normal Saline (250mL Bag) 250 ML 15 ML IV (12:11)
--- NOTE | 2024-11-21 14:01 | PN_ITS ---
Subjective Subjective Patient seen and examined. He was more alert and communicative today and had no complaints. He had an uneventful night and review systems otherwise negative. He is on 2 L of oxygen. He still coughing. He is due for modified barium swallow tomorrow. Objective Data Objective Data Vital Signs: Vital Signs Temp Pulse Resp BP Pulse Ox O2 Del Method O2 Flow Rate 98.8 F 88 19 H 140/85 H 92 Nasal Cannula 2 11/21/24 09:43 11/21/24 09:43 11/21/24 09:43 11/21/24 09:43 11/21/24 09:50 11/21/24 09:50 11/21/24 09:50 Oxygen Flow Rate (L/min) 2 Oxygen Delivery Method Nasal Cannula Weight: 246 lb 4 oz Body Mass Index (BMI) 39.7 Intake & Output: Intake and Output for Last 24 Hours 11/19/24 11/20/24 11/21/24 23:59 23:59 23:59 Intake Total 4514 / 4766 1391.33 / 1391.33 1032.67 / 1032.67 Output Total 700 / 800 1999 / 1999 550 / 550 Balance 3814 / 3966 -608.67 / -608.67 482.67 / 482.67 Lab / Micro Data 11/21/24 05:31 11/21/24 05:31 Labs: Laboratory Results - last 24 hr 11/21/24 05:31: WBC 6.6, RBC 3.72 L, Hgb 11.3 L, Hct 34.4 L, MCV 92.5, MCH 30.4, MCHC 32.8, RDW Std Deviation 50.4 H, RDW Coeff of Eleanor 14.8 H, Plt Count 185, MPV 9.5, Immature Gran % (Auto) 0.300, Neut % (Auto) 66.5, Lymph % (Auto) 15.7 L, M david % (Auto) 10.7 H, Eos % (Auto) 6.0 H, Baso % (Auto) 0.8, Absolute Neuts (auto) 4.4, Absolute Lymphs (auto) 1.03, Nucleated RBC % 0, Sodium 139, Potassium 3.8, Chloride 97 L, Carbon Dioxide 32.0, Anion Gap 11, BUN 12, Creatinine 0.85, Estim Creat Clear Calc 116.58, Est GFR (MDRD) Non-Af 103, BUN/Creatinine Ratio 14.4, Glucose 90, Calcium 9.0 Micro: Microbiology 11/18/24 16:50 Mucosa - Nasopharyngeal Respiratory Panel (PCR) - Final 11/18/24 07:45 Mucosa - Nose SARS-CoV-2, Influenza & RSV (PCR) - Final Rhythm Strip Rhythm Strip: Sinus Rhythm Rate: 88 Ectopy: None Physical Exam Const alert Constitutional Narrative: class II obesity, lethargy has improved today General Appearance: cooperative Orientation / Consciousness: lethargic HEENT normocephalic, head/scalp atraumatic, moist oral mucous membranes and oropharynx normal Eyes EOMs intact bilaterally Eyes Narrative: legally blind Neck supple and no JVD Lymph Lymphatic: no lymphedema noted Resp Resp Narrative: Mildly diminished breath sounds bibasilarly. No wheezes and no crackles. On 2L of oxygen by nasal cannula. Cardio regular rate, regular rhythm, S1 normal heart sound, S2 normal heart sound and no murmurs GI normal to inspection, nondistended, normoactive bowel sounds, soft to palpation and non-tender Extremity normal to inspection and full ROM General Extremity: no tenderness to palpation of joints or extremities Skin General Skin Exam: no breakdown Neuro moves all extremities Neuro Narrative: Alert, oriented to person, place and time. Legally blind Motor Exam: general weakness Psych cooperative and affect normal Appearance: appropriate Assessment & Plan Assessment/Plan (1) Aspiration pneumonia: PLAN: Plan #Hypoxia due to probable aspiration pneumonia. * was weaned down to room air earlier today but now on 3L of oxygen. * CTA chest showed patchy right basilar pulmonary infiltrate with increased markings in the posterior lobe of the right middle lobe with minimal pleural effusion on the right. * on IV clindamycin * respiratory panel negative * sputum cultures pending. * Speech therapy on board. He does have evidence of dysphagia and aspirations on modified diet. For barium swallow on Friday. * Titrate oxygen to maintain saturation above 90%. Breathing treatments bronchodilators. * wbc down to 6.6 today * For modified barium swallow tomorrow * #History of schizoaffective disorder: On benztropine and Seroquel #History of COPD: Not in exacerbation. Breathing transferred bronchodilators. #Hypertension: Amlodipine and hydrochlorothiazide as well as lisinopril and hydralazine #DVT prophylaxis: Lovenox CODE STATUS: DNR CC Disposition: * Anticipated discharge over the next 24 to 48 hours once he has modified barium swallow and we can get a definite dietary recommendation from nutrition and speech therapy. Charges/Coding Visit Charges Inpatient E&M: 93841 Subs Hosp L2
[2024-11-21] MEDS: LORazepam 1 MG Tablet 2 MG PO (15:16)
[2024-11-22] VITALS (8 sets, daily range): BP systolic 132–170; BP diastolic 82–94; PULSE 68–94; RESP 14–18; TEMP 36.6–37.1; O2SAT 93–95
[2024-11-22 06:08] LABS: Absolute Lymphocyte Count 0.92 X10^3/uL (0.83-4.51); Absolute Neutrophil Count 3.1 X10^3/uL (2.0-7.7); Basophil# 0.03 X10^3/uL; Basophil% 0.6 % (0-1); Eosinophil# 0.45 X10^3/uL; Eosinophils% 8.6 % (0-5); Hemoglobin 11.1 g/dL (13.0-16.5); Lymphocyte # 0.92 X10^3/ul (0.83-4.51); Lymphocyte % 17.7 % (19-41); Mean Corp Hgb Conc 32.6 g/dL (32-36); Mean Corpuscular Volume 91.9 fL (80-94); Mean Platelet Vol. 9.2 fl (6.2-12.0); Monocyte# 0.68 X10^3/uL; Monocyte% 13.1 % (0-10); NRBC Flagged by Analyzer 0 % (0-5); Neutrophil # 3.12 X10^3/uL (2.7-7.7); Neutrophil % 59.8 % (47-70); Platelet Count 177 K/mm3 (150-450); RBC Distribution Width CV 14.6 % (11.6-14.6); RBC Distribution Width SD 49.9 fl (35.1-43.9); White Blood Count 5.2 K/mm3 (4.4-11.0)
[2024-11-22] MEDS: Clindamycin 300 MG in Dextrose 5%-Water (50mL Bag) 50 ML 150 MG IV ×4 (06:17→23:26)
[2024-11-22] MEDS: Calcium Carbonate 500 MG Tablet PO ×3 (06:19→21:57)
[2024-11-22] MEDS: Divalproex Sodium 125 MG SPRINKLE 250 MG PO ×3 (06:19→21:59)
[2024-11-22] MEDS: hydrALAZINE 10 MG Tablet PO ×3 (06:19→21:56)
[2024-11-22 06:51] LABS: BUN 12 mg/dL (4-19); Creatinine, Serum 0.81 mg/dL (0.70-1.20); Glucose 103 mg/dL (70-99)
[2024-11-22 06:52] LABS: Anion Gap 11 (5-15); BUN/Creat Ratio 14.8 RATIO (10-20); Carbon Dioxide 32.7 mmol/L (21.0-32.0); Chloride 96 mmol/L (98-108); EST Glomerular Filtration Rate 105 (>60); Estimated Creatinine Clearance 122.33 ml/min (50-250); Potassium 3.8 mmol/L (3.3-5.1); Sodium Level 140 mmol/L (133-145)
[2024-11-22] MEDS: QUEtiapine 100 MG Tablet 300 MG PO ×2 (07:48→21:57)
[2024-11-22] MEDS: Benztropine Mesylate 0.5 MG TABLET 1 MG PO ×2 (07:49→21:58)
[2024-11-22] MEDS: Folic Acid 1 MG Tablet PO (07:50)
[2024-11-22] MEDS: Escitalopram Oxalate 10 MG Tablet PO ×2 (07:50→21:59)
[2024-11-22] MEDS: Cholecalciferol (VIT D3) 25 MCG TABLET (1,000 UNITS) 50 MCG PO (07:51)
[2024-11-22] MEDS: Enoxaparin 40 MG/0.4 ML Syringe SC (07:52)
[2024-11-22] MEDS: amLODIPine 10 MG Tablet PO (07:52)
[2024-11-22] MEDS: Polyethylene Glycol 3350 17 GM PACKET PO ×2 (07:52→21:59)
[2024-11-22] MEDS: Potassium Chloride Oral Tablet 10 MEQ 30 MEQ PO (07:53)
[2024-11-22] MEDS: Aspirin E.C. 81 MG Tablet PO (07:54)
[2024-11-22] MEDS: Hydrocortisone 10 MG Tablet 15 MG PO (07:54)
[2024-11-22] MEDS: Lactobacillis Acidophilus 1 CAP PO (07:54)
[2024-11-22] MEDS: Propranolol LA 80 MG Capsule PO (07:55)
[2024-11-22] MEDS: Pantoprazole Sodium 40 MG Tablet PO (07:55)
[2024-11-22] MEDS: hydroCHLOROthiazide 25 MG Tablet PO (07:55)
[2024-11-22] MEDS: Lisinopril 20 MG Tablet PO (07:56)
[2024-11-22] MEDS: Fludrocortisone Acetate 0.1 MG Tablet PO (07:56)
[2024-11-22] MEDS: Fluticasone 0.05% 1 SPRAY NASAL.SRY NASAL (07:56)
--- NOTE | 2024-11-22 10:02 | ST.MBS ---
Modified Barium Swallow Patient Information Study Date: 11/22/24 Study Time: 13:30 Direct Billable Minutes: 110 Total Minutes procedure & reportin Diagnosis: Aspiration PNA J69.0 Referring Physician: Sean Napier Reason for Referral: Assess swallow function, risk for aspiration, and determine recommendations for LRD textures and any necessary dysphagia interventions. Medical History: The patient presented to [facility] ED on 11/18/2024 with a complaint of hypoxia and SOB brought in from SNF. Pt also had coughing. Vitals in the ED were BP of 164/71, pulse rate of 73, respiratory rate of 14 and temperature of 98.4 Fahrenheit. He was saturating at 96% on room air. Chest x-ray showed cardiomegaly with no evidence of acute cardiopulmonary pathology. CTA chest showed patchy right basilar infiltrate and minimal increased markings in the right middle lobe with no evidence of PE. He was admitted to be managed for hypoxia due to probable aspiration pneumonia. ST consulted due to concern for aspiration PNA. At SNF, he was on a mechanical soft / thin liquid diet w/ no straws. BSE 11/19/2024 recommended minced and moist textures / thin liquids by tsp (TOTAL FEED for liquids d/t impulsivity) and plan for MBSS today to further assess swallow function and aspiration risk to determine LRD textures and necessary dysphagia interventions. PMH: Lactic acidosis, GURJIT, COPD, Hypoxia, PNA, MRSA, Morbid obesity, Intermittent explosive disorder, Schizoaffective disorder, Acute metabolic encephalopathy, Bradycardia, Schizo affective schizophrenia, Legally blind, HTN, Asthma, Gastroparesis, Cyclical vomiting, Anxiety - See EMR for full PMH. Pt is familiar to this ST department. MBSS 06/06/22 revealed moderate oropharyngeal phase dysphagia w/ aspiration of thin liquids by sequential cup and straw. He was recommended for Minced and Moist textures (IDDSI Level 5), Thin Liquids...Compensatory Strategies: Small Bites, Small Sips, No Straws, Slow Rate - Sips and bites one at a time, Alternate bites/solids and sips/liquids, Sitting upright, Minimize/decrease distractions...Supervision: 1:1 Close Supervision - Assist feeding as needed to help patient control rate of oral intake as patient is very impulsive. Current Diet Ordered: Minced & moist / Thin by tsp Mental Status: Impaired (Impulsive) Respiratory Status: Oxygenating on 2L/M nasal cannula Penetration-Aspiration Scale Penetration-Aspiration Scale: OBJECTIVE ASSESSMENT OF SWALLOW FUNCTION (QUANTITATIVE ? PER TRIAL): PENETRATION / ASPIRATION SCALE (VALERIO): 1 = does not enter airway 2 = enters airway/above vocal folds/ejected 3 = enters airway/above vocal folds/not ejected 4 = enters airway/contacts vocal folds/ejected 5 = enters airway/contacts vocal folds/not ejected 6 = enters airway/below vocal folds/ejected 7 = enters airway/below vocal folds/not ejected despite effort 8 = enters airway/below vocal folds/no effort VIDEOFLOROSCOPIC SCALE SCORE (VALERIO): Grade I = aspiration of material that has penetrated into the laryngeal vestibule, intact cough reflex Grade II = aspiration < 10 % of the bolus, intact cough reflex Grade III = aspiration of < 10 % of the bolus, reduced cough reflex or aspiration of > 10 % of the bolus, intact cough reflex Grade IV = aspiration of > 10 % of the bolus, reduced cough reflex Penetration-Aspiration Scale Score Thin Liquid via teaspoon: Result: 3= enters airways/above vocal folds/not ejected Thin Liquid via teaspoon Trial 2: Result: 2= enter airway/above vocal folds/ejected Thin Liquid via large single sip: cup: Result: 3= enters airways/above vocal folds/not ejected Thin Liquid via sequential sips:straw: Result: 3= enters airways/above vocal folds/not ejected [place] Thick Liquid via sequential sips: cup: Result: 2= enter airway/above vocal folds/ejected Pudding via teaspoon: Result: 1= does not enter airway Comment: Esophageal screen - Complete clearance / Cookie: Result: 1= does not enter airway Thin Liquid via sequential sips:straw Trial 2: Result: 5= enters airways/contacts vocal folds/not ejected [place] Thick Liquid via small single sip: cup: Result: 2= enter airway/above vocal folds/ejected Oral Phase Labial Seal: Interlabial escape, no progression to anterior lip Tongue Control During Bolus Hold: Posterior escape of greater than half of bolus Bolus Preparation/Mastication: Disorganized chewing/mashing with solid pieces of bolus unchewed Bolus Transport/Lingual Motion: Slowed tongue motion Oral Residue: Residue collection on oral structures Pharyngeal Phase Initiation of Pharyngeal Swallow: Bolus head in pyriforms Soft Palate Elevation: Trace column of contrast/air between soft palate and pharyngeal wall Laryngeal Elevation: Partial superior movement thyroid cart/partial apprx aryt-epig petiole Anterior Hyoid Excursion: Partial anterior movement Epiglottic Movement: Partial inversion Laryngeal Vestibule Closure at Height of Swallow: Incomplete; narrow column of air/contrast in laryngeal vestibule Pharyngeal Stripping Wave: Present - diminished Pharyngoesophageal Segment Opening: Parital distension and partial duration; parital obstruction of flow Tongue Base Retraction: Narrow column of contrast between tongue base & post. pharyngeal wall Pharyngeal Residue: Collection of residue within or on pharyngeal structures Esophageal Phase Esophageal Clearance: Complete clearance Diagnosis/Impression Diagnosis: Mild-moderate oropharyngeal dypshagia R13.12 Impression: The oral phase is primarily marked by... -Decreased bolus control w/ premature posterior loss of >1/2 of various boluses textures prior to swallow onset. -Slowed tongue motion for A-P transport. -Mild-moderate pharyngeal residue -Decreased mastication w/ small pieces of cookie appearing un-chewed. The pharyngeal phase is primarily marked by... -Decreased pharyngeal motility most notable w/ large sips d/t decreased TB retraction, pharyngeal stripping wave, and UES opening/duration. -Decreased airway closure due to decreased laryngeal elevation, anterior hyoid excursion, and poor epiglottic inversion. -Laryngeal penetration of sequential sips of thin liquids to the vocal folds w/o complete ejection. 3RD GRADE TEACHER could not definitively rule out aspiration due to pt's body habitus. Pt is impulsive and is at risk for aspiration w/ sequential sips of thin liquids. Recommendations Diet: Minced and Moist Textures and Mildly Thick Liquids Comment: Compensatory Strategies: ? Small bites/sips ? Slow Rate ? Alternate bites/sips ? Sitting upright during and 30-60min after meal Oral care after meals Supervision: Distant Supervision Recommend Repeat Modified Barium Swallow: Yes (4-8 weeks after patient participates in oropharyngeal exercise program) Need for Skilled Speech Therapy Services: Yes Comment: -Train the patient/staff in use of strategies to decrease risk for aspiration and reflux aspiration. -Ongoing assessment of diet tolerance of recommended textures. -Train the patient in oropharyngeal exercise program to improve bolus control and airway closure (lingual coordination, lingual resistance, effortful swallows). Would also consider pt for EMST. Education Completed: 1. Described result of evaluation., 2. Pt understands evaluation & agrees with goals and treatment plan. and 7. Pt requires further education on strategies & risks. Status Active ST Patient: Active Contact Information [facility]:: Cristina Coburn M.A. CCC-3RD GRADE TEACHER? Speech-Language Pathologist?? [facility] [address] [place] [address]? [email or web address]?? [phone]
[2024-11-22] MEDS: 0.9% Normal Saline (250mL Bag) 250 ML 15 ML IV (12:12)
[2024-11-22] MEDS: Ferrous Sulfate 325 MG Tablet PO ×2 (12:15→15:07)
[2024-11-22] MEDS: LORazepam 1 MG Tablet 2 MG PO ×2 (15:14→22:02)
--- NOTE | 2024-11-22 15:34 | NURSING ---
PILLS GIVEN IN PUDDING. MOUTH CARE GIVEN AFTER
--- NOTE | 2024-11-22 16:30 | PN.HOSP_ITS ---
Reason for Visit Reason for Visit: Diagnoses Pneumonitis due to inhalation of food and vomit (11/18/24) Objective Data Objective Data Vital Signs: Vital Signs Temp Pulse Resp BP Pulse Ox O2 Del Method O2 Flow Rate 98.3 F 85 14 132/83 H 93 Nasal Cannula 2 11/22/24 15:18 11/22/24 15:18 11/22/24 15:18 11/22/24 15:18 11/22/24 15:18 11/22/24 15:31 11/22/24 15:31 Oxygen Flow Rate (L/min) 2 Oxygen Delivery Method Nasal Cannula Weight: 246 lb 4 oz Body Mass Index (BMI) 39.7 Intake & Output: Intake and Output for Last 24 Hours 11/20/24 11/21/24 11/22/24 23:59 23:59 23:59 Intake Total 1391.33 / 1391.33 1860.42 / 1860.42 156 / 156 Output Total 1999 / 1999 550 / 550 1500 / 1500 Balance -608.67 / -608.67 1310.42 / 1310.42 -1344 / -1344 Lab / Micro Data 11/22/24 05:40 11/22/24 05:40 Labs: Laboratory Results - last 24 hr 11/22/24 05:40: WBC 5.2, RBC 3.70 L, Hgb 11.1 L, Hct 34.0 L, MCV 91.9, MCH 30.0, MCHC 32.6, RDW Std Deviation 49.9 H, RDW Coeff of Eleanor 14.6, Plt Count 177, MPV 9.2, Immature Gran % (Auto) 0.200, Neut % (Auto) 59.8, Lymph % (Auto) 17.7 L, M david % (Auto) 13.1 H, Eos % (Auto) 8.6 H, Baso % (Auto) 0.6, Absolute Neuts (auto) 3.1, Absolute Lymphs (auto) 0.92, Nucleated RBC % 0, Sodium 140, Potassium 3.8, Chloride 96 L, Carbon Dioxide 32.7 H, Anion Gap 11, BUN 12, Creatinine 0.81, Estim Creat Clear Calc 122.33, Est GFR (MDRD) Non-Af 105, BUN/Creatinine Ratio 14.8, Glucose 103 H, Calcium 9.0 Micro: Microbiology 11/18/24 16:50 Mucosa - Nasopharyngeal Respiratory Panel (PCR) - Final 11/18/24 07:45 Mucosa - Nose SARS-CoV-2, Influenza & RSV (PCR) - Final Rhythm Strip Rhythm Strip: Sinus Rhythm Rate: 88 Ectopy: None Physical Exam Narrative Seen and examined. Patient is legally blind and cannot see. He also has a scratchy/itchy habit and has few superficial abrasions on right dorsal aspect of forearm. Bilateral leg swelling. Physical exam General: Alert, Oriented x3, Cooperative. BMI 39.7 kg/m?, obesity grade 2 HEENT: Legally blind. Atraumatic, PERRLA, EOMI, Normocephalic. Oral: No Gingival or Mucosal Lesions/ Ulcerations Neck: Supple, No JVD, Negative Carotid Bruits Chest wall/Lungs: Air entry diminished in bilateral lung bases. No crepitation/rhonchi Cardiovascular: Regular rate and rhythm, Normal S1,S2, No M/G/R Abdomen: Bowel Sounds Present, Soft, Non Tender, Non-Distended : No dysuria. No renal angle tenderness. No suprapubic tenderness. Extremities: Bilateral 2+ edema, Capillary Refill Less than 3 Seconds Skin: No rashes, No breakdown Musculoskeletal: No Tenderness to Palpation of Joints or Extremities. ROM limited at knees and hip joints Neurological: DTR 2+/4. No acute focal neurological deficit. Psych/Mental Status: Flat affect Assessment & Plan Assessment/Plan (1) Aspiration pneumonia: PLAN: Plan #Hypoxia due to probable aspiration pneumonia. * was weaned down to room air earlier today but now on 3L of oxygen. * CTA chest showed patchy right basilar pulmonary infiltrate with increased markings in the posterior lobe of the right middle lobe with minimal pleural effusion on the right. * on IV clindamycin * respiratory panel negative * sputum cultures pending. * Speech therapy on board. He does have evidence of dysphagia and aspirations on modified diet. For barium swallow on Friday. * Titrate oxygen to maintain saturation above 90%. Breathing treatments bronchodilators. * wbc down to 6.6 11/22: Plan for modified barium swallow today. Continue antibiotic, clindamycin. #History of schizoaffective disorder: On benztropine and Seroquel #History of COPD: Not in exacerbation. Breathing transferred bronchodilators. #Hypertension: Amlodipine and hydrochlorothiazide as well as lisinopril and hydralazine Blood pressure is controlled. #DVT prophylaxis: Lovenox CODE STATUS: DNR CC Disposition: * Anticipated discharge over the next 24 to 48 hours once he has modified barium swallow and we can get a definite dietary recommendation from nutrition and speech therapy. * * Laboratory Results 11/22/24 05:40: WBC 5.2, RBC 3.70 L, Hgb 11.1 L, Hct 34.0 L, MCV 91.9, MCH 30.0, MCHC 32.6, RDW Std Deviation 49.9 H, RDW Coeff of Eleanor 14.6, Plt Count 177, MPV 9.2, Immature Gran % (Auto) 0.200, Neut % (Auto) 59.8, Lymph % (Auto) 17.7 L, M david % (Auto) 13.1 H, Eos % (Auto) 8.6 H, Baso % (Auto) 0.6, Absolute Neuts (auto) 3.1, Absolute Lymphs (auto) 0.92, Nucleated RBC % 0, Sodium 140, Potassium 3.8, Chloride 96 L, Carbon Dioxide 32.7 H, Anion Gap 11, BUN 12, Creatinine 0.81, Estim Creat Clear Calc 122.33, Est GFR (MDRD) Non-Af 105, BUN/Creatinine Ratio 14.8, Glucose 103 H, Calcium 9.0 Charges/Coding Visit Charges Inpatient E&M: 01722 Subs Hosp L2
[2024-11-22] MEDS: 0.9% Saline Lock 10 ML Syringe IV (17:52)
[2024-11-22] MEDS: Senna/Docusate Sodium 1 Tablet 2 TABLET PO (21:58)
[2024-11-22] MEDS: Docusate Sodium 100 MG Capsule PO (21:58)
[2024-11-23] MEDS: Clindamycin 300 MG in Dextrose 5%-Water (50mL Bag) 50 ML 150 MG IV ×2 (05:31→12:35)
[2024-11-23] MEDS: Divalproex Sodium 125 MG SPRINKLE 250 MG PO ×2 (05:33→14:21)
[2024-11-23 05:34] VITALS: BP 155/81; PULSE 76
[2024-11-23] MEDS: Calcium Carbonate 500 MG Tablet PO ×2 (05:34→14:21)
[2024-11-23] MEDS: hydrALAZINE 10 MG Tablet PO ×2 (05:34→14:21)
[2024-11-23 06:00] VITALS: BP 155/81; PULSE 76; RESP 16; TEMP 36.7; O2SAT 95
[2024-11-23 07:03] VITALS: O2SAT 91
[2024-11-23] MEDS: Aspirin E.C. 81 MG Tablet PO (08:41)
[2024-11-23] MEDS: Folic Acid 1 MG Tablet PO (08:41)
[2024-11-23] MEDS: Lactobacillis Acidophilus 1 CAP PO (08:42)
[2024-11-23] MEDS: Benztropine Mesylate 0.5 MG TABLET 1 MG PO (08:43)
[2024-11-23] MEDS: Docusate Sodium 100 MG Capsule PO (08:43)
[2024-11-23] MEDS: Hydrocortisone 10 MG Tablet 15 MG PO (08:44)
[2024-11-23] MEDS: Fluticasone 0.05% 1 SPRAY NASAL.SRY NASAL (08:47)
[2024-11-23] MEDS: hydroCHLOROthiazide 25 MG Tablet PO (08:48)
[2024-11-23] MEDS: Fludrocortisone Acetate 0.1 MG Tablet PO (08:48)
[2024-11-23] MEDS: Propranolol LA 80 MG Capsule PO (08:49)
[2024-11-23] MEDS: Potassium Chloride Oral Tablet 10 MEQ 30 MEQ PO (08:49)
[2024-11-23] MEDS: Escitalopram Oxalate 10 MG Tablet PO (08:50)
[2024-11-23] MEDS: Enoxaparin 40 MG/0.4 ML Syringe SC (08:50)
[2024-11-23] MEDS: amLODIPine 10 MG Tablet PO (08:52)
[2024-11-23] MEDS: Senna/Docusate Sodium 1 Tablet 2 TABLET PO (08:52)
[2024-11-23] MEDS: Pantoprazole Sodium 40 MG Tablet PO (08:52)
[2024-11-23] MEDS: QUEtiapine 100 MG Tablet 300 MG PO (08:53)
[2024-11-23] MEDS: Cholecalciferol (VIT D3) 25 MCG TABLET (1,000 UNITS) 50 MCG PO (08:53)
[2024-11-23] MEDS: Lisinopril 20 MG Tablet PO (08:54)
[2024-11-23 09:00] VITALS: BP 164/83; PULSE 77; RESP 17; TEMP 36.5; O2SAT 94
[2024-11-23] MEDS: Polyethylene Glycol 3350 17 GM PACKET PO (10:05)
--- NOTE | 2024-11-23 11:15 | TREXTCAR_ITS ---
Diet Diet Order/Speech Therapy: INPATIENT Hospital Diet / Speech Therapy Order(s) 11/18/24 16:08 Diet: Cardiac - Heart Healthy Food consistency:: Mechanical (Minced/Moist) Liquid Consistency:: [place]/Mildly Thick Diet Comments: Distant supervision Routine Orders/Code Status Suppository Type: Dulcolax 10mg Suppository Frequency: Daily PRN DC O2, CPAP, BIPAP needs Home O2 Discharge instructions: Yes Type of respiratory needs?: Oxygen Oxygen frequency: Continuous Continuous oxygen liters per minute: 2 Wound(s) R arm: Wound Type: scattered scabs Therapies Extremity Affected:: Bilateral Lower Physical Therapy: Eval and Treat Occupational Therapy: Eval and Treat Speech Therapy: Eval and Treat Problem/Diagnosis (1) Aspiration pneumonia: Status: Acute Code(s): J69.0 - Pneumonitis due to inhalation of food and vomit Plan #Hypoxia due to probable aspiration pneumonia. * was weaned down to room air earlier today but now on 3L of oxygen. * CTA chest showed patchy right basilar pulmonary infiltrate with increased markings in the posterior lobe of the right middle lobe with minimal pleural effusion on the right. * on IV clindamycin * respiratory panel negative * sputum cultures pending. * Speech therapy on board. He does have evidence of dysphagia and aspirations on modified diet. For barium swallow on Friday. * Titrate oxygen to maintain saturation above 90%. Breathing treatments bronchodilators. * wbc down to 6.6 11/22: Plan for modified barium swallow today. Continue antibiotic, clindamycin. #History of schizoaffective disorder: On benztropine and Seroquel #History of COPD: Not in exacerbation. Breathing transferred bronchodilators. #Hypertension: Amlodipine and hydrochlorothiazide as well as lisinopril and hydralazine Blood pressure is controlled. #DVT prophylaxis: Lovenox CODE STATUS: DNR CC Disposition: * Anticipated discharge over the next 24 to 48 hours once he has modified barium swallow and we can get a definite dietary recommendation from nutrition and speech therapy. * * Laboratory Results 11/22/24 05:40: WBC 5.2, RBC 3.70 L, Hgb 11.1 L, Hct 34.0 L, MCV 91.9, MCH 30.0, MCHC 32.6, RDW Std Deviation 49.9 H, RDW Coeff of Eleanor 14.6, Plt Count 177, MPV 9.2, Immature Gran % (Auto) 0.200, Neut % (Auto) 59.8, Lymph % (Auto) 17.7 L, [place] % (Auto) 13.1 H, Eos % (Auto) 8.6 H, Baso % (Auto) 0.6, Absolute Neuts (auto) 3.1, Absolute Lymphs (auto) 0.92, Nucleated RBC % 0, Sodium 140, Potassium 3.8, Chloride 96 L, Carbon Dioxide 32.7 H, Anion Gap 11, BUN 12, Creatinine 0.81, Estim Creat Clear Calc 122.33, Est GFR (MDRD) Non-Af 105, BUN/Creatinine Ratio 14.8, Glucose 103 H, Calcium 9.0 Allergies/Procedures Done in Hospital Allergies acetic acid Allergy (Verified 11/18/24 10:04) PT UNABLE TO RESPOND-NEEDS F/U nut - unspecified (nuts) Allergy (Verified 11/18/24 10:04) PT UNABLE TO RESPOND-NEEDS F/U Penicillins Allergy (Verified 11/18/24 10:04) PT UNABLE TO RESPOND-NEEDS F/U risperidone Allergy (Verified 11/18/24 10:04) PT UNABLE TO RESPOND-NEEDS F/U Type of Care/Length of Stay Estimated LOS: More Than 30 Days Type of Care Needed: Intermediate Rehab Potential: Good Prognosis: Good Additional Orders/Day of Discharge Day of Discharge: 11/23/24 Dietary and Speech Recommendations Dietitian Recommendations/Changes: Continue Cardiac diet as ordered - consistency per RETAIL AND PROMOTIONS COORDINATOR Continue to follow and monitor for changes in pt nutritional status and make additional rec as indicated. Discharge Plan Admission Admit Date/Time: 11/18/24 13:21 Primary Reason for Your Visit: Aspiration/dysphagia, failure to thrive Attending Provider: Sean Napier Primary Care Provider: Lex Jiang Consulting Providers: Buffy Kaplan Discharge Orders/Prescriptions Prescriptions: New metronidazole 500 mg tablet 500 mg PO TID 2 Days Qty: 6 0RF Continued amlodipine [Norvasc] 10 mg tablet 10 mg PO QDAY Tubersol 5 tub. unit /0.1 mL solution 0.1 ml intradermal ONCE Rx Instructions: as a single dose acetaminophen [Tylenol] 325 mg tablet 650 mg PO ONCE PRN (Reason: fever or pain) albuterol sulfate 0.63 mg/3 mL solution for nebulization 0.63 mg inhalation Q4H PRN (Reason: Shortness Of Breath) cyanocobalamin (vitamin B-12) 1,000 mcg Tablet 1,000 mcg PO WE benztropine 1 mg Tablet 1 mg PO BID fluticasone propionate [Flonase Allergy Relief] 50 mcg/actuation Jean,Suspension 1 spray INTRANASAL DAILY fludrocortisone 0.1 mg Tablet 0.1 mg PO DAILY escitalopram oxalate [Lexapro] 10 mg Tablet 10 mg PO BID quetiapine [Seroquel XR] 300 mg Tablet Extended Release 24 Hr 600 mg PO QHS Fanapt 6 mg tablet 6 mg PO DAILY Fanapt 12 mg tablet 12 mg PO DAILY loperamide 2 mg Capsule 2 mg PO Q4H PRN (Reason: STOOL) aspirin 81 mg Tablet,Delayed Release (Dr/Ec) 81 mg PO DAILY magnesium hydroxide [Milk of Magnesia] 400 mg/5 mL Suspension 30 ml PO Q24H PRN (Reason: Constipation) propranolol 80 mg capsule,extended release 24 hr 80 mg PO DAILY alum-mag hydroxide-simeth 200-200-20 mg/5 mL Suspension 30 ml PO Q4H PRN (Reason: Heartburn) cholecalciferol (vitamin D3) [Vitamin D3] 50 mcg (2,000 unit) Tablet 50 mcg PO DAILY hydralazine 10 mg tablet 10 mg PO TID lorazepam 1 mg Tablet 2 mg PO TID Qty: 6 0RF lorazepam [Ativan] 2 mg Tablet 2 mg PO Q6H PRN (Reason: Agitation) Qty: 6 0RF docusate sodium [Colace] 100 mg capsule 100 mg PO BID polyethylene glycol 3350 [ClearLax] 17 gram/dose powder 17 g PO DAILY ergocalciferol (vitamin D2) 1,250 mcg (50,000 unit) capsule 1,250 mcg PO QWEEK folic acid 400 mcg tablet 1 mg PO DAILY hydrocortisone 5 mg tablet 15 mg PO DAILY lisinopril 20 mg tablet 20 mg PO DAILY Probiotic Blend 2 billion cell-50 mg capsule 1 cap PO DAILY Rx Instructions: give with meal/snack pantoprazole 40 mg tablet,delayed release (DR/EC) 40 mg PO DAILY divalproex 125 mg capsule, delayed rel sprinkle 250 mg PO Q8H lorazepam 2 mg/mL syringe 2 mg IM Q6H PRN (Reason: agitation) hydrochlorothiazide 25 mg tablet 25 mg PO DAILY potassium chloride 10 mEq capsule, extended release 30 meq PO DAILY Patient Comments: [NO ORIGINAL SIG] sennosides-docusate sodium [Stimulant Laxative Plus] 8.6-50 mg Tablet 2 tab PO BID Qty: 0 0RF Rx Instructions: Hold for diarrhea Changed calcium carbonate 500 mg calcium (1,250 mg) Tablet 500 mg PO TID 30 Days Qty: 90 0RF ferrous sulfate [FeroSul] 325 mg (65 mg iron) Tablet 325 mg PO QODAY 30 Days Qty: 0 0RF Discontinued calcium carbonate [Tums] 200 mg calcium (500 mg) tablet,chewable 200 mg PO TID Referrals / Follow Up: Lex Jiang MD [Primary Care Provider] - Disposition Disposition (needs filled in before D/C Order can be placed): Home, Self Care
--- NOTE | 2024-11-23 11:29 | DS.PCM_ITS ---
Providers Date of Admission: 11/18/24 Date of Discharge: 11/23/24 Primary Care Physician: Dr. Lex Jiang MD Reason For Visit: HYPOXIA, PROBABLE ASPIRATION PNEUMONIA Diagnosis Discharge Diagnosis (1) Aspiration pneumonia: Status: Acute Code(s): J69.0 - Pneumonitis due to inhalation of food and vomit Plan 54-year-old gentleman was admitted for shortness of breath, hypoxia and requires 2 L of oxygen. #Hypoxia due to probable aspiration pneumonia. * was weaned down to room air earlier today but now on 3L of oxygen. * CTA chest showed patchy right basilar pulmonary infiltrate with increased markings in the posterior lobe of the right middle lobe with minimal pleural effusion on the right. * on IV clindamycin * respiratory panel negative * sputum cultures pending. * Speech therapy on board. He does have evidence of dysphagia and aspirations on modified diet. For barium swallow on Friday. * Titrate oxygen to maintain saturation above 90%. Breathing treatments bronchodilators. * wbc down to 6.6 11/22: Plan for modified barium swallow today. Continue antibiotic, clindamycin. 11/23: Patient completed 5 days of clindamycin IV. Since he is on modified diet and clindamycin level 1 Therefore Flagyl for 2 More Days Prescribed. Modified barium swallow reported mild to moderate oropharyngeal dysphagia and recommended minced and moist texture with mildly thick liquid. Compensated respiratory disease and supervised diet. #History of schizoaffective disorder: On benztropine and Seroquel #History of COPD: Not in exacerbation. Breathing transferred bronchodilators. #Hypertension: Amlodipine and hydrochlorothiazide as well as lisinopril and hydralazine Blood pressure is controlled. #DVT prophylaxis: Lovenox CODE STATUS: DNR CC Disposition: * Anticipated discharge over the next 24 to 48 hours once he has modified barium swallow and we can get a definite dietary recommendation from nutrition and speech therapy. Discharge medication reconciliation done. Discharge follow-up instructions completed. Discharge process discussed with the patient and all questions were answered to patient's satisfaction. Follow with PCP in 1 to 2 weeks Total time spent, exact 35 minutes on discharge meds reconciliation, examination, coordination of care with nurses and ancillary staff, review of imaging and blood test and discussion with the patient on follow-up instructions. Laboratory Results 11/22/24 05:40: WBC 5.2, RBC 3.70 L, Hgb 11.1 L, Hct 34.0 L, MCV 91.9, MCH 30.0, MCHC 32.6, RDW Std Deviation 49.9 H, RDW Coeff of Eleanor 14.6, Plt Count 177, MPV 9.2, Immature Gran % (Auto) 0.200, Neut % (Auto) 59.8, Lymph % (Auto) 17.7 L, M david % (Auto) 13.1 H, Eos % (Auto) 8.6 H, Baso % (Auto) 0.6, Absolute Neuts (auto) 3.1, Absolute Lymphs (auto) 0.92, Nucleated RBC % 0, Sodium 140, Potassium 3.8, Chloride 96 L, Carbon Dioxide 32.7 H, Anion Gap 11, BUN 12, Creatinine 0.81, Estim Creat Clear Calc 122.33, Est GFR (MDRD) Non-Af 105, BUN/Creatinine Ratio 14.8, Glucose 103 H, Calcium 9.0 Medications at Discharge Home Medications albuterol sulfate 0.63 mg/3 mL solution for nebulization 0.63 mg inhalation Q4H PRN Shortness Of Breath 06/04/22 benztropine 1 mg tablet 1 mg PO BID 06/04/22 cyanocobalamin (vitamin B-12) 1,000 mcg tablet 1,000 mcg PO WE SUPPLEMENT 06/04/22 escitalopram oxalate 10 mg tablet (Lexapro) 10 mg PO BID MENTAL HEALTH 06/04/22 fludrocortisone 0.1 mg tablet 0.1 mg PO DAILY 06/04/22 fluticasone propionate 50 mcg/actuation nasal spray,suspension (Flonase Allergy Relief) 1 spray intranasal DAILY ALLERGIES 06/04/22 iloperidone 12 mg tablet (Fanapt) 12 mg PO DAILY MENTAL HEALTH 06/04/22 iloperidone 6 mg tablet (Fanapt) 6 mg PO DAILY MENTAL HEALTH 06/04/22 quetiapine 300 mg tablet,extended release 24 hr (Seroquel XR) 600 mg PO QHS MENTAL HEALTH 06/04/22 aluminum-mag hydroxide-simethicone 200 mg-200 mg-20 mg/5 mL oral susp 30 ml PO Q4H PRN Heartburn 07/24/22 aspirin 81 mg tablet,delayed release 81 mg PO DAILY HEART HEALTH 07/24/22 cholecalciferol (vitamin D3) 50 mcg (2,000 unit) tablet (Vitamin D3) 50 mcg PO DAILY SUPPLEMENT 07/24/22 loperamide 2 mg capsule 2 mg PO Q4H PRN STOOL 07/24/22 magnesium hydroxide 400 mg/5 mL oral suspension (Milk of Magnesia) 30 ml PO Q24H PRN Constipation 07/24/22 propranolol 80 mg capsule,24 hr,extended release 80 mg PO DAILY BLOOD PRESSURE 07/24/22 L.acidophil-L.casei-B.bifid-B.longum-FOS 2 billion cell-50 mg capsule (Probiotic Blend) 1 cap PO DAILY 06/24/24 divalproex 125 mg capsule,delayed release sprinkle 250 mg PO Q8H 06/24/24 folic acid 400 mcg tablet 1 mg PO DAILY 06/24/24 hydrocortisone 5 mg tablet 15 mg PO DAILY 06/24/24 lisinopril 20 mg tablet 20 mg PO DAILY 06/24/24 pantoprazole 40 mg tablet,delayed release 40 mg PO DAILY 06/24/24 hydralazine 10 mg tablet 10 mg PO TID 07/16/24 lorazepam 1 mg tablet 2 mg (2 x 1 mg) PO TID #6 tabs 07/20/24 lorazepam 2 mg tablet (Ativan) 2 mg PO Q6H PRN Agitation #6 tabs 07/20/24 hydrochlorothiazide 25 mg tablet 25 mg PO DAILY 08/17/24 lorazepam 2 mg/mL injection syringe 2 mg IM Q6H PRN agitation 08/17/24 potassium chloride 10 mEq capsule,extended release 30 meq PO DAILY 08/17/24 sennosides 8.6 mg-docusate sodium 50 mg tablet (Stimulant Laxative Plus) 2 tab PO BID #0 tabs 08/20/24 acetaminophen 325 mg tablet (Tylenol) 650 mg PO ONCE PRN fever or pain 10/11/24 amlodipine 10 mg tablet (Norvasc) 10 mg PO QDAY 10/11/24 tuberculin PPD 5 tub. unit/0.1 mL intradermal injection solution (Tubersol) 0.1 ml intradermal ONCE 10/11/24 docusate sodium 100 mg capsule (Colace) 100 mg PO BID 11/18/24 ergocalciferol (vitamin D2) 1,250 mcg (50,000 unit) capsule 1,250 mcg PO QWEEK 11/18/24 polyethylene glycol 3350 17 gram/dose oral powder (ClearLax) 17 g PO DAILY 11/18/24 calcium carbonate 500 mg PO TID SUPPLEMENT 30 days #90 tabs 11/23/24 ferrous sulfate 325 mg (65 mg iron) tablet (FeroSul) 325 mg PO QODAY SUPPLEMENT 30 days #0 tabs 11/23/24 metronidazole 500 mg tablet 500 mg PO TID 2 days #6 tabs 11/23/24 Physical Exam Narrative Seen and examined. Patient is legally blind and cannot see. He also has a scratchy/itchy habit and has few superficial abrasions on right dorsal aspect of forearm. Bilateral leg swelling. On stool softener. Physical exam General: Alert, Oriented x3, Cooperative. BMI 39.7 kg/m?, obesity grade 2 HEENT: Legally blind. Atraumatic, PERRLA, EOMI, Normocephalic. Oral: No Gingival or Mucosal Lesions/ Ulcerations. Neck: Supple, No JVD, Negative Carotid Bruits Chest wall/Lungs: Air entry diminished in bilateral lung bases. No crepitation/rhonchi Cardiovascular: Regular rate and rhythm, Normal S1,S2, No M/G/R Abdomen: Oropharyngeal dysphagia. Bowel Sounds Present, Soft, Non Tender, Non- Distended : No dysuria. No renal angle tenderness. No suprapubic tenderness. Extremities: Bilateral 2+ edema, Capillary Refill Less than 3 Seconds Skin: No rashes, No breakdown Musculoskeletal: No Tenderness to Palpation of Joints or Extremities. ROM limited at knees and hip joints Neurological: DTR 2+/4. No acute focal neurological deficit. Psych/Mental Status: Flat affect Weight / BMI Weight Weight: 246 lb 4 oz Body Mass Index (BMI) 39.7 ABG / Lab / Microbiology Data 11/22/24 05:40 11/22/24 05:40 Microbiology: Microbiology 11/18/24 16:50 Mucosa - Nasopharyngeal Respiratory Panel (PCR) - Final 11/18/24 07:45 Mucosa - Nose SARS-CoV-2, Influenza & RSV (PCR) - Final D/C Instructions DC O2, CPAP, BIPAP Needs Home O2 Discharge instructions: Yes Type of respiratory needs?: Oxygen Oxygen frequency: Continuous Continuous oxygen liters per minute: 2 DC home with Oxygen: Yes Home O2 MD Review: I have reviewed the oxygen testing, and the patient qualifies for home oxygen equipment and portability. The patient is mobile in the home and the community. Meaningful Use Info Meaningful Use Meaningful Use Diagnoses (Choose all that apply): None applicable Ischemic Stroke Statin Dosing Therapy Reference: STATIN DOSE THERAPY REFERENCE: * Patients > 75 years receive moderate or high dose statin therapy. * Patients 75 years or YOUNGER should receive HIGH intensity statin dose unless contraindicated. You will be required to document reason for non-treatment if statin daily dose does not meet guidelines. HIGH DOSE STATIN THERAPY DAILY Atorvastatin > than or = to 40 mg Rosuvastatin > than or = to 20 mg Amlodipine + Atorvastatin > than or = to 2.5/40 mg Ezetimibe + Simvastatin 10/80 mg Simvastatin 80mg Discharge Plan Admission Admit Date/Time: 11/18/24 13:21 Primary Reason for Your Visit: Aspiration/dysphagia, failure to thrive Attending Provider: Sean Napier Primary Care Provider: Lex Jiang Consulting Providers: Buffy Kaplan Discharge Orders/Prescriptions Prescriptions: New metronidazole 500 mg tablet 500 mg PO TID 2 Days Qty: 6 0RF Continued amlodipine [Norvasc] 10 mg tablet 10 mg PO QDAY Tubersol 5 tub. unit /0.1 mL solution 0.1 ml intradermal ONCE Rx Instructions: as a single dose acetaminophen [Tylenol] 325 mg tablet 650 mg PO ONCE PRN (Reason: fever or pain) albuterol sulfate 0.63 mg/3 mL solution for nebulization 0.63 mg inhalation Q4H PRN (Reason: Shortness Of Breath) cyanocobalamin (vitamin B-12) 1,000 mcg Tablet 1,000 mcg PO WE benztropine 1 mg Tablet 1 mg PO BID fluticasone propionate [Flonase Allergy Relief] 50 mcg/actuation [place],Suspension 1 spray INTRANASAL DAILY fludrocortisone 0.1 mg Tablet 0.1 mg PO DAILY escitalopram oxalate [Lexapro] 10 mg Tablet 10 mg PO BID quetiapine [Seroquel XR] 300 mg Tablet Extended Release 24 Hr 600 mg PO QHS Fanapt 6 mg tablet 6 mg PO DAILY Fanapt 12 mg tablet 12 mg PO DAILY loperamide 2 mg Capsule 2 mg PO Q4H PRN (Reason: STOOL) aspirin 81 mg Tablet,Delayed Release (Dr/Ec) 81 mg PO DAILY magnesium hydroxide [Milk of Magnesia] 400 mg/5 mL Suspension 30 ml PO Q24H PRN (Reason: Constipation) propranolol 80 mg capsule,extended release 24 hr 80 mg PO DAILY alum-mag hydroxide-simeth 200-200-20 mg/5 mL Suspension 30 ml PO Q4H PRN (Reason: Heartburn) cholecalciferol (vitamin D3) [Vitamin D3] 50 mcg (2,000 unit) Tablet 50 mcg PO DAILY hydralazine 10 mg tablet 10 mg PO TID lorazepam 1 mg Tablet 2 mg PO TID Qty: 6 0RF lorazepam [Ativan] 2 mg Tablet 2 mg PO Q6H PRN (Reason: Agitation) Qty: 6 0RF docusate sodium [Colace] 100 mg capsule 100 mg PO BID polyethylene glycol 3350 [ClearLax] 17 gram/dose powder 17 g PO DAILY ergocalciferol (vitamin D2) 1,250 mcg (50,000 unit) capsule 1,250 mcg PO QWEEK folic acid 400 mcg tablet 1 mg PO DAILY hydrocortisone 5 mg tablet 15 mg PO DAILY lisinopril 20 mg tablet 20 mg PO DAILY Probiotic Blend 2 billion cell-50 mg capsule 1 cap PO DAILY Rx Instructions: give with meal/snack pantoprazole 40 mg tablet,delayed release (DR/EC) 40 mg PO DAILY divalproex 125 mg capsule, delayed rel sprinkle 250 mg PO Q8H lorazepam 2 mg/mL syringe 2 mg IM Q6H PRN (Reason: agitation) hydrochlorothiazide 25 mg tablet 25 mg PO DAILY potassium chloride 10 mEq capsule, extended release 30 meq PO DAILY Patient Comments: [NO ORIGINAL SIG] sennosides-docusate sodium [Stimulant Laxative Plus] 8.6-50 mg Tablet 2 tab PO BID Qty: 0 0RF Rx Instructions: Hold for diarrhea Changed calcium carbonate 500 mg calcium (1,250 mg) Tablet 500 mg PO TID 30 Days Qty: 90 0RF ferrous sulfate [FeroSul] 325 mg (65 mg iron) Tablet 325 mg PO QODAY 30 Days Qty: 0 0RF Discontinued calcium carbonate [Tums] 200 mg calcium (500 mg) tablet,chewable 200 mg PO TID Referrals / Follow Up: Lex Jiang MD [Primary Care Provider] - Disposition Disposition (needs filled in before D/C Order can be placed): Home, Self Care Charges/Coding Visit Charges Inpatient E&M: 65620 Disch Hosp >30min
--- NOTE | 2024-11-23 11:45 | PHA.DC.MR.R ---
[facility] has performed discharge medication reconciliation for this patient. The patient's discharge medication list was reviewed for discrepancies and discrepancies were resolved. Medications at Discharge Home Medications albuterol sulfate 0.63 mg/3 mL solution for nebulization 0.63 mg inhalation Q4H PRN Shortness Of Breath 06/04/22 benztropine 1 mg tablet 1 mg PO BID 06/04/22 cyanocobalamin (vitamin B-12) 1,000 mcg tablet 1,000 mcg PO WE SUPPLEMENT 06/04/22 escitalopram oxalate 10 mg tablet (Lexapro) 10 mg PO BID MENTAL HEALTH 06/04/22 fludrocortisone 0.1 mg tablet 0.1 mg PO DAILY 06/04/22 fluticasone propionate 50 mcg/actuation nasal spray,suspension (Flonase Allergy Relief) 1 spray intranasal DAILY ALLERGIES 06/04/22 iloperidone 12 mg tablet (Fanapt) 12 mg PO DAILY MENTAL HEALTH 06/04/22 iloperidone 6 mg tablet (Fanapt) 6 mg PO DAILY MENTAL HEALTH 06/04/22 quetiapine 300 mg tablet,extended release 24 hr (Seroquel XR) 600 mg PO QHS MENTAL HEALTH 06/04/22 aluminum-mag hydroxide-simethicone 200 mg-200 mg-20 mg/5 mL oral susp 30 ml PO Q4H PRN Heartburn 07/24/22 aspirin 81 mg tablet,delayed release 81 mg PO DAILY HEART HEALTH 07/24/22 cholecalciferol (vitamin D3) 50 mcg (2,000 unit) tablet (Vitamin D3) 50 mcg PO DAILY SUPPLEMENT 07/24/22 loperamide 2 mg capsule 2 mg PO Q4H PRN STOOL 07/24/22 magnesium hydroxide 400 mg/5 mL oral suspension (Milk of Magnesia) 30 ml PO Q24H PRN Constipation 07/24/22 propranolol 80 mg capsule,24 hr,extended release 80 mg PO DAILY BLOOD PRESSURE 07/24/22 L.acidophil-L.casei-B.bifid-B.longum-FOS 2 billion cell-50 mg capsule (Probiotic Blend) 1 cap PO DAILY 06/24/24 divalproex 125 mg capsule,delayed release sprinkle 250 mg PO Q8H 06/24/24 folic acid 400 mcg tablet 1 mg PO DAILY 06/24/24 hydrocortisone 5 mg tablet 15 mg PO DAILY 06/24/24 lisinopril 20 mg tablet 20 mg PO DAILY 06/24/24 pantoprazole 40 mg tablet,delayed release 40 mg PO DAILY 06/24/24 hydralazine 10 mg tablet 10 mg PO TID 07/16/24 lorazepam 1 mg tablet 2 mg (2 x 1 mg) PO TID #6 tabs 07/20/24 lorazepam 2 mg tablet (Ativan) 2 mg PO Q6H PRN Agitation #6 tabs 07/20/24 hydrochlorothiazide 25 mg tablet 25 mg PO DAILY 08/17/24 lorazepam 2 mg/mL injection syringe 2 mg IM Q6H PRN agitation 08/17/24 potassium chloride 10 mEq capsule,extended release 30 meq PO DAILY 08/17/24 sennosides 8.6 mg-docusate sodium 50 mg tablet (Stimulant Laxative Plus) 2 tab PO BID #0 tabs 08/20/24 acetaminophen 325 mg tablet (Tylenol) 650 mg PO ONCE PRN fever or pain 10/11/24 amlodipine 10 mg tablet (Norvasc) 10 mg PO QDAY 10/11/24 tuberculin PPD 5 tub. unit/0.1 mL intradermal injection solution (Tubersol) 0.1 ml intradermal ONCE 10/11/24 docusate sodium 100 mg capsule (Colace) 100 mg PO BID 11/18/24 ergocalciferol (vitamin D2) 1,250 mcg (50,000 unit) capsule 1,250 mcg PO QWEEK 11/18/24 polyethylene glycol 3350 17 gram/dose oral powder (ClearLax) 17 g PO DAILY 11/18/24 calcium carbonate 500 mg PO TID SUPPLEMENT 30 days #90 tabs 11/23/24 ferrous sulfate 325 mg (65 mg iron) tablet (FeroSul) 325 mg PO QODAY SUPPLEMENT 30 days #0 tabs 11/23/24 metronidazole 500 mg tablet 500 mg PO TID 2 days #6 tabs 11/23/24
--- NOTE | 2024-11-23 12:26 | CASEMGMT ---
Discharge Planning Discharge orders, signed med list, and transport time faxed to [facility]. Physicians will transport pt by cot at 2p. Nursing, SW, and pts legal guardian/sister (Courtney) updated. Jeannette Katz DC Planning Asst.
[2024-11-23] MEDS: Ferrous Sulfate 325 MG Tablet PO (12:35)
--- NOTE | 2024-11-23 12:36 | NURSING ---
report called to [facility]. pt scheduled to be picked up at 1400
[2024-11-23 14:00] VITALS: BP 163/94; PULSE 70; RESP 17; TEMP 36.8; O2SAT 88
--- NOTE | 2024-11-23 14:10 | CASEMGMT ---
Social Work Physician updated and pt is ready for discharge today.?[facility] notified of discharge readiness. [facility] to complete final arrangements and notifications. Disposition:[facility], intermediate level of care YOLI Huynh
[2024-11-23 14:21] VITALS: PULSE 70
[2024-11-23] MEDS: LORazepam 1 MG Tablet 2 MG PO (14:27)
== END 2024-11-23 16:35 | disposition intermediate care facility (04) | DRG 179 ==
LOC: ED 13:46 → MS3 15:26
PROVIDERS: Admitting Provider Student in an Organized Health Care Education/Training Program; Emergency Provider Emergency Medicine; PCP Family Medicine; Visit Provider Internal Medicine
DX: J69.0 Pneumonitis due to inhalation of food and vomit (principal); F25.9 Schizoaffective disorder, unspecified; Z51.5 Encounter for palliative care; Z66 Do not resuscitate; J44.9 Chronic obstructive pulmonary disease, unspecified; I10 Essential (primary) hypertension; D64.9 Anemia, unspecified; Z82.5 Family history of asthma and other chronic lower respiratory diseases; H54.8 Legal blindness, as defined in USA; R09.02 Hypoxemia; R13.10 Dysphagia, unspecified
CPT/HCPCS: 36415; 71046; 71275; 74230; 80048; 83880; 84484; 85025; 87631; 87633; 92526; 92610; 92611; 93005; 94640; 99285; Q9967; A4216

== ENCOUNTER 2024-12-09 09:37 | Day surgery (SDC) | payer MEDICARE, MEDICAID, SELFPAY ==
[2024-12-09] VITALS (9 sets, daily range): BP systolic 103–141; BP diastolic 39–87; PULSE 78–88; RESP 14–16; TEMP 36.1–36.6; O2SAT 92–97; BMI 42.0
[2024-12-09] MEDS: Lactated Ringers 1,000 ML 15 ML IV (10:14)
--- NOTE | 2024-12-09 10:29 | PCM.PRE.AN2 ---
ASA Classification* ASA Classification ASA Classification: 3 Assessment & Plan Anesthesia* Anesthesia Assessment Anesthesia Assessment: Discussed sedation and/or anesthesia options, risks, benefits, and alternatives with patient/parents/legal guardian/POA. Questions invited. The patient/parents/legal guardian/POA seems to understand and agrees to proceed with anesthesia plan. Reviewed the physical assessment, medical history, allergy history and patient home medications list prior to surgery/procedure/anesthetic and documented any changes. Performed airway and anesthesia risk assessments. Anesthesia Type Anesthesia Type: MAC History Source History Obtained from:: Patient, Chart and Parent/ Guardian Anesthesia Focused Assessment* Temperature: 98 F Pulse Rate: 88 Blood Pressure: 129/81 Respiratory Rate: 16 Pulse Ox: 94 Oxygen Delivery Method: Room Air Airway Assessment Mouth opens: 2 cm Mallampati Score: II Teeth Condition: Intact, Dentures, Full, Lower and Upper Labs Anesthesia Preop lab: CBC WBC 5.2 K/mm3 (4.4-11.0) 11/22/24 05:40 11/22/24 RBC 3.70 M/mm3 (4.6-6.2) L 11/22/24 05:40 11/22/24 Hgb 11.1 g/dL (13.0-16.5) L 11/22/24 05:40 11/22/24 Hct 34.0 % (40-54) L 11/22/24 05:40 11/22/24 Plt Count 177 K/mm3 (150-450) 11/22/24 05:40 11/22/24 CHEMISTRY Potassium 3.8 mmol/L (3.3-5.1) 11/22/24 05:40 11/22/24 Sodium 140 mmol/L (133-145) 11/22/24 05:40 11/22/24 Magnesium 2.1 mg/dL (1.5-2.2) 08/18/24 06:22 08/18/24 Phosphorus 2.1 mg/dL (2.5-4.9) L 06/25/24 05:17 06/25/24 BUN 12 mg/dL (4-19) 11/22/24 05:40 11/22/24 Creatinine 0.81 mg/dL (0.70-1.20) 11/22/24 05:40 11/22/24 Glucose 103 mg/dL (70-99) H 11/22/24 05:40 11/22/24 TSH 5.110 uIU/mL (0.358-3.740) H 06/24/24 03:14 06/24/24 COAG PT 14.8 SECONDS (11.7-14.9) 07/16/24 04:15 07/16/24 Pre-Assessment Diagnosis/Proposed Procedure Planned Operative Procedure(s): EGD, COLONOSCOPY Anesthesia History 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 When Was Last Pacemaker Check QUESTION #4 FULL TEXT: You/Your Family Experience fever (hyperthermia) with Anesthesia Last Oral Intake Last Oral intake: Last Oral Intake NPO since 16:00 12/09/24 10:06 Meds taken in AM with sips of water? Meds patient instructed to take am of surgery PONV PONV - english language arts teacher: PONV - english language arts teacher Female No 12/08/24 13:02 HX of Motion Sickness No 12/08/24 13:02 HX of N/V After Surgery No 12/08/24 13:02 Non-Smoker Yes 12/08/24 13:02 Duration of Surgery greater No 12/08/24 13:02 than 60 minutes Number of Risk Factors 1 12/08/24 13:02 PONV Score Low Risk 12/08/24 13:02 Height & Weight Height & Weight: Anesthesia: Height & Weight Height 5 ft 4 in 12/09/24 10:06 Weight: 111.2 kg 12/09/24 10:06 Body Mass Index (BMI) 42.0 12/09/24 10:06 Respiratory Assessment Respiratory Assessment - english language arts teacher: Respiratory Tract Infection Hx - english language arts teacher Hx Respiratory Tract Infection No 12/08/24 13:02 STOP Sleep Apnea STOP Sleep Apnea - english language arts teacher: STOP Sleep Apnea - english language arts teacher Hx Hypertension Yes 12/08/24 13:02 Hx Sleep Apnea No 12/08/24 13:02 CPAP BIPAP Do you snore loudly (louder No 12/08/24 13:02 than talking or can be heard Do you often feel tired/ No 12/08/24 13:02 fatigued/ sleepy during daytime? Has anyone observed you stop No 12/08/24 13:02 breathing during sleep? STOP Results Negative 12/08/24 13:02 QUESTION #5 FULL TEXT : Do you snore loudly (louder than talking or can be heard through closed doors)? 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 Specify any problems Hx of Preganancy in last 3 Months Nurse Filling Out Transfusion & Questions: Date: Time: Patient unable to answer at Yes 12/08/24 13:02 this time (ie. 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: /Reproductive Hx- english language arts teacher Hx Now No 12/08/24 13:02 Gestational Age (in weeks): EDC: Hx Hx Para Hx Section SAB No 12/08/24 13:02 Active Medications Active Medications: Current Medications Generic Name Dose Route Start Last Admin Trade Name Freq PRN Reason Stop Dose Admin Lactated Ringer's 1,000 mls @ 15 mls/hr 12/09/24 10:00 12/09/24 10:14 IV 15 mls/hr .Q48H BRIANA Administration PFSH Medical History Schizophrenia Depression Anxiety Open wound Abrasion Arthritis History of renal disease Dietary restriction Difficulty swallowing History of diverticulitis Heartburn Gastric reflux Non-smoker Aspiration pneumonia MRSA (methicillin resistant staph aureus) culture positive Acidosis, lactic GURJIT (acute kidney injury) Morbid obesity with BMI of 40.0-44.9, adult Intermittent explosive disorder Schizoaffective disorder Acute metabolic encephalopathy COPD (chronic obstructive pulmonary disease) Hypoxia Pneumonia Bradycardia Chronic anal fissure Cellulitis Adrenocortical insufficiency Anemia Schizo affective schizophrenia Legally blind Intermittent explosive disorder COPD (chronic obstructive pulmonary disease) Hypertension Asthma Gastroparesis Cyclical vomiting Thrombocythemia Hypocalcemia Anxiety Home Medications ?Medication ?Instructions ?Recorded ?Last Taken ?Type albuterol sulfate 0.63 mg/3 mL 0.63 mg inhalation Q4H PRN 06/04/22 Unknown History solution for nebulization Shortness Of Breath benztropine 1 mg tablet 1 mg PO BID 06/04/22 07/23/22 History cyanocobalamin (vitamin B-12) 1,000 mcg PO WE SUPPLEMENT 06/04/22 07/24/22 08:00 History 1,000 mcg tablet escitalopram oxalate 10 mg tablet 10 mg PO BID MENTAL HEALTH 06/04/22 07/24/22 08:00 History (Lexapro) fludrocortisone 0.1 mg tablet 0.1 mg PO DAILY 06/04/22 07/24/22 08:00 History fluticasone propionate 50 1 spray intranasal DAILY ALLERGIES 06/04/22 07/24/22 08:00 History mcg/actuation nasal spray,suspension (Flonase Allergy Relief) iloperidone 12 mg tablet (Fanapt) 12 mg PO DAILY MENTAL HEALTH 06/04/22 07/23/22 History iloperidone 6 mg tablet (Fanapt) 6 mg PO DAILY MENTAL HEALTH 06/04/22 07/24/22 08:00 History quetiapine 300 mg tablet,extended 600 mg PO QHS MENTAL HEALTH 06/04/22 07/23/22 History release 24 hr (Seroquel XR) aluminum-mag hydroxide-simethicone 30 ml PO Q4H PRN Heartburn 07/24/22 Unknown History 200 mg-200 mg-20 mg/5 mL oral susp aspirin 81 mg tablet,delayed 81 mg PO DAILY HEART HEALTH 07/24/22 07/24/22 08:00 History release cholecalciferol (vitamin D3) 50 50 mcg PO DAILY SUPPLEMENT 07/24/22 07/24/22 08:00 History mcg (2,000 unit) tablet (Vitamin D3) loperamide 2 mg capsule 2 mg PO Q4H PRN STOOL 07/24/22 07/24/22 09:30 History magnesium hydroxide 400 mg/5 mL 30 ml PO Q24H PRN Constipation 07/24/22 Unknown History oral suspension (Milk of Magnesia) propranolol 80 mg capsule,24 80 mg PO DAILY BLOOD PRESSURE 07/24/22 07/24/22 08:00 History hr,extended release L.acidophil-L.casei-B.bifid-B.longum-FOS 1 cap PO DAILY 06/24/24 Unknown History 2 billion cell-50 mg capsule (Probiotic Blend) divalproex 125 mg capsule,delayed 250 mg PO Q8H 06/24/24 Unknown History release sprinkle folic acid 400 mcg tablet 1 mg PO DAILY 06/24/24 Unknown History hydrocortisone 5 mg tablet 15 mg PO DAILY 06/24/24 Unknown History lisinopril 20 mg tablet 20 mg PO DAILY 06/24/24 Unknown History pantoprazole 40 mg tablet,delayed 40 mg PO DAILY 06/24/24 Unknown History release hydralazine 10 mg tablet 10 mg PO TID 07/16/24 Unknown History lorazepam 1 mg tablet 2 mg (2 x 1 mg) PO TID #6 tabs 07/20/24 Unknown Rx lorazepam 2 mg tablet (Ativan) 2 mg PO Q6H PRN Agitation #6 tabs 07/20/24 Unknown Rx hydrochlorothiazide 25 mg tablet 25 mg PO DAILY 08/17/24 Unknown History lorazepam 2 mg/mL injection syringe 2 mg IM Q6H PRN agitation 08/17/24 Unknown History potassium chloride 10 mEq 30 meq PO DAILY 08/17/24 Unknown History capsule,extended release sennosides 8.6 mg-docusate sodium 2 tab PO BID #0 tabs 08/20/24 Unknown Rx 50 mg tablet (Stimulant Laxative Plus) acetaminophen 325 mg tablet 650 mg PO Q4H PRN fever or pain 10/11/24 Unknown History (Tylenol) amlodipine 10 mg tablet (Norvasc) 10 mg PO QDAY 10/11/24 Unknown History docusate sodium 100 mg capsule 100 mg PO BID 11/18/24 Unknown History (Colace) ergocalciferol (vitamin D2) 1,250 1,250 mcg PO QWEEK 11/18/24 Unknown History mcg (50,000 unit) capsule polyethylene glycol 3350 17 17 g PO DAILY 11/18/24 Unknown History gram/dose oral powder (ClearLax) calcium carbonate 500 mg PO TID SUPPLEMENT 30 days 11/23/24 07/24/22 08:00 Rx #90 tabs ferrous sulfate 325 mg (65 mg 325 mg PO QODAY SUPPLEMENT 30 days 11/23/24 07/24/22 08:00 Rx iron) tablet (FeroSul) #0 tabs Allergy/AdvReac Type Severity Reaction Status Date / Time acetic acid Allergy PT UNABLE Verified 12/09/24 10:06 TO RESPOND-NEEDS F/U nut - unspecified (nuts) Allergy PT UNABLE Verified 12/09/24 10:06 TO RESPOND-NEEDS F/U Penicillins Allergy PT UNABLE Verified 12/09/24 10:06 TO RESPOND-NEEDS F/U risperidone Allergy PT UNABLE Verified 12/08/24 12:43 TO RESPOND-NEEDS F/U Family History Father COPD (chronic obstructive pulmonary disease) Mother Hypertension Surgical History History of eye surgery S/P repair of hydrocele Social History housing: other details: Nursing facility with psychiatric focus. Smoking Status: Never smoker alcohol intake: never substance use type: does not use Review of Systems (Anesthesia) ROS Narrative System reviewed and no additional complaints, except as documented. Physical Exam Const alert Nutritional Appearance: obese Eyes Visual Acuity: complete vision loss Resp normal respiratory effort and normal air movement Cardio regular rate Neuro moves all extremities
--- NOTE | 2024-12-09 10:45 | EGD_PTH ---
PATIENT: TEGAN FUENTES LOC: EN U#:[id number] AGE/SX: 54/M ROOM: RE12/09/[address]: Dr. Kendall Mckenna DO : 1970 BED: DIS: 12/09/2024 SPEC #: [id number] RECD: 12/09/24 14:59 STATUS: SHAHNAZ REBeatriz #: [id number] DAVID: 12/09/24 10:[address]: Kendall Mckenna DEPT: SURGICAL PATHOLOGY RECD BY: Jarad Mae ENTERED: 12/09/24 16:02 SP TYPE: EGD BIOPSY WILL DR: Dr. Lex Jiang MD Tissues: A - Esophagus, NOS B - COLON BIOPSY Procedures: Surgery Specimen Level IV HEADER OPERATION: Colonoscopy, EGD, biopsy PRE-OP DIAGNOSIS: Vomiting, diarrhea, encounter for colorectal cancer screening TISSUE SUBMITTED: A- Distal esophagus biopsy, B- Random colonic biopsy MICROSCOPIC DIAGNOSIS A. Distal esophagus, biopsy: - Squamous mucosa with reactive changes. - Columnar mucosa with goblet cell metaplasia - see note. - Negative for dysplasia. Note: The diagnosis depends on the location of the biopsy and the extent of the mucosal irregularity. If the biopsy originates from the tubular esophagus and the mucosal irregularity extends at least 1 cm above the top of the gastric folds, this represents Carcamo mucosa. If the biopsy originates from the gastric cardia an/ or the mucosal irregularity is less than 1 cm in extent, this represents intestinal metaplasia. B. Colon, random biopsy: - No specific pathologic change. MICROSCOPIC DESCRIPTION Slides are reviewed. GROSS DESCRIPTION A. Received in fixative is one container labeled with the patient's name and designated Distal esophagus biopsy. The specimen consists of multiple irregular fragments of light gomes soft tissue that in aggregate measure 1 x 0.4 x 0.1 cm. The specimen is totally submitted in one cassette. B. Received in fixative is one container labeled with the patient's name and designated Random colonic biopsy. The specimen consists of multiple irregular fragments of light gomes soft tissue that in aggregate measure 1.5 x 0.5 x 0.2 cm. The specimen is totally submitted in one cassette. John 12/09/2024 CPT:22518v0
--- NOTE | 2024-12-09 10:49 | PCM.HP.STD ---
HPI - General General Date of Admission: 12/09/24 Date of Service: 12/09/24 Chief Complaint: coffee brown emesis and screening colonoscopy HPI Narrative TEGAN FUENTES, is a 54 M who presents for Chief Complaint: brown emesis and screening colonoscopy [facility] admission 3-08.20.24 for aspiration PNA after episodes of emesis. OV 5.5.25 Pt here today for continued issues with emesis and diarrhea. Pt unable to give a complete hx however his nurse helps fill in the gaps. Pt has had these symptoms for along time now however he was recently taken off hospice so now his guardian is hoping to have these symptoms looked into with testing. His last emesis was about a week ago. He often will wake up with his pillow covered in emesis or mucous. He has heartburn on occasion but is unable to tell me how often. He does take a PPI daily. He mentions a hx of ulcers. He has daily bm that are either loose or 'pudding like. He is on medications for constipation both daily and as needed. He thinks he has had ab EGD and coloscopy in the past. [facility] Medical History Schizophrenia Depression Anxiety Open wound Abrasion Arthritis History of renal disease Dietary restriction Difficulty swallowing History of diverticulitis Heartburn Gastric reflux Non-smoker Aspiration pneumonia MRSA (methicillin resistant staph aureus) culture positive Acidosis, lactic GURJIT (acute kidney injury) Morbid obesity with BMI of 40.0-44.9, adult Intermittent explosive disorder Schizoaffective disorder Acute metabolic encephalopathy COPD (chronic obstructive pulmonary disease) Hypoxia Pneumonia Bradycardia Chronic anal fissure Cellulitis Adrenocortical insufficiency Anemia Schizo affective schizophrenia Legally blind Intermittent explosive disorder COPD (chronic obstructive pulmonary disease) Hypertension Asthma Gastroparesis Cyclical vomiting Thrombocythemia Hypocalcemia Anxiety Home Medications ?Medication ?Instructions ?Recorded ?Last Taken ?Type albuterol sulfate 0.63 mg/3 mL 0.63 mg inhalation Q4H PRN 06/04/22 Unknown History solution for nebulization Shortness Of Breath benztropine 1 mg tablet 1 mg PO BID 06/04/22 07/23/22 History cyanocobalamin (vitamin B-12) 1,000 mcg PO WE SUPPLEMENT 06/04/22 07/24/22 08:00 History 1,000 mcg tablet escitalopram oxalate 10 mg tablet 10 mg PO BID MENTAL HEALTH 06/04/22 07/24/22 08:00 History (Lexapro) fludrocortisone 0.1 mg tablet 0.1 mg PO DAILY 06/04/22 07/24/22 08:00 History fluticasone propionate 50 1 spray intranasal DAILY ALLERGIES 06/04/22 07/24/22 08:00 History mcg/actuation nasal spray,suspension (Flonase Allergy Relief) iloperidone 12 mg tablet (Fanapt) 12 mg PO DAILY MENTAL HEALTH 06/04/22 07/23/22 History iloperidone 6 mg tablet (Fanapt) 6 mg PO DAILY MENTAL HEALTH 06/04/22 07/24/22 08:00 History quetiapine 300 mg tablet,extended 600 mg PO QHS MENTAL HEALTH 06/04/22 07/23/22 History release 24 hr (Seroquel XR) aluminum-mag hydroxide-simethicone 30 ml PO Q4H PRN Heartburn 07/24/22 Unknown History 200 mg-200 mg-20 mg/5 mL oral susp aspirin 81 mg tablet,delayed 81 mg PO DAILY HEART HEALTH 07/24/22 07/24/22 08:00 History release cholecalciferol (vitamin D3) 50 50 mcg PO DAILY SUPPLEMENT 07/24/22 07/24/22 08:00 History mcg (2,000 unit) tablet (Vitamin D3) loperamide 2 mg capsule 2 mg PO Q4H PRN STOOL 07/24/22 07/24/22 09:30 History magnesium hydroxide 400 mg/5 mL 30 ml PO Q24H PRN Constipation 07/24/22 Unknown History oral suspension (Milk of Magnesia) propranolol 80 mg capsule,24 80 mg PO DAILY BLOOD PRESSURE 07/24/22 07/24/22 08:00 History hr,extended release L.acidophil-L.casei-B.bifid-B.longum-FOS 1 cap PO DAILY 06/24/24 Unknown History 2 billion cell-50 mg capsule (Probiotic Blend) divalproex 125 mg capsule,delayed 250 mg PO Q8H 06/24/24 Unknown History release sprinkle folic acid 400 mcg tablet 1 mg PO DAILY 06/24/24 Unknown History hydrocortisone 5 mg tablet 15 mg PO DAILY 06/24/24 Unknown History lisinopril 20 mg tablet 20 mg PO DAILY 06/24/24 Unknown History pantoprazole 40 mg tablet,delayed 40 mg PO DAILY 06/24/24 Unknown History release hydralazine 10 mg tablet 10 mg PO TID 07/16/24 Unknown History lorazepam 1 mg tablet 2 mg (2 x 1 mg) PO TID #6 tabs 07/20/24 Unknown Rx lorazepam 2 mg tablet (Ativan) 2 mg PO Q6H PRN Agitation #6 tabs 07/20/24 Unknown Rx hydrochlorothiazide 25 mg tablet 25 mg PO DAILY 08/17/24 Unknown History lorazepam 2 mg/mL injection syringe 2 mg IM Q6H PRN agitation 08/17/24 Unknown History potassium chloride 10 mEq 30 meq PO DAILY 08/17/24 Unknown History capsule,extended release sennosides 8.6 mg-docusate sodium 2 tab PO BID #0 tabs 08/20/24 Unknown Rx 50 mg tablet (Stimulant Laxative Plus) acetaminophen 325 mg tablet 650 mg PO Q4H PRN fever or pain 10/11/24 Unknown History (Tylenol) amlodipine 10 mg tablet (Norvasc) 10 mg PO QDAY 10/11/24 Unknown History docusate sodium 100 mg capsule 100 mg PO BID 11/18/24 Unknown History (Colace) ergocalciferol (vitamin D2) 1,250 1,250 mcg PO QWEEK 11/18/24 Unknown History mcg (50,000 unit) capsule polyethylene glycol 3350 17 17 g PO DAILY 11/18/24 Unknown History gram/dose oral powder (ClearLax) calcium carbonate 500 mg PO TID SUPPLEMENT 30 days 11/23/24 07/24/22 08:00 Rx #90 tabs ferrous sulfate 325 mg (65 mg 325 mg PO QODAY SUPPLEMENT 30 days 11/23/24 07/24/22 08:00 Rx iron) tablet (FeroSul) #0 tabs Allergy/AdvReac Type Severity Reaction Status Date / Time acetic acid Allergy PT UNABLE Verified 12/09/24 10:06 TO RESPOND-NEEDS F/U nut - unspecified (nuts) Allergy PT UNABLE Verified 12/09/24 10:06 TO RESPOND-NEEDS F/U Penicillins Allergy PT UNABLE Verified 12/09/24 10:06 TO RESPOND-NEEDS F/U risperidone Allergy PT UNABLE Verified 12/08/24 12:43 TO RESPOND-NEEDS F/U Family History Father COPD (chronic obstructive pulmonary disease) Mother Hypertension Surgical History History of eye surgery S/P repair of hydrocele Social History housing: other details: Nursing facility with psychiatric focus. Smoking Status: Never smoker alcohol intake: never substance use type: does not use ROS Constitutional Constitutional: Denies fatigue, fever(s), poor appetite, weight gain or weight loss Gastrointestinal Gastrointestinal: Denies belching, bloating, change in bowel habits, change in stool character, chewing difficulty, coffee ground emesis, constipation, cramping, diarrhea, dyspepsia, dysphagia, early satiety, excessive flatus, fecal incontinence, heartburn, hematemesis, hematochezia, hemorrhoids, loose stools, melena, nausea, odynophagia, rectal bleeding, tenesmus, vomiting or weight changes Vital Signs Vital Signs Vital Signs: 12/09/24 10:06 12/09/24 10:06 12/09/24 10:30 Temperature 98 F 98 F Temperature Source Temporal Pulse Rate 88 88 Respiratory Rate 16 16 Respiratory Pattern Normal Blood Pressure 129/81 H 129/81 H Blood Pressure Mean 97 Blood Pressure Source Monitor Blood Pressure Position Semi-Fowlers Blood Pressure Location Left Arm Pulse Ox 94 94 Oxygen Delivery Method Room Air Room Air Weight Weight: 245 lb 2.464 oz Body Mass Index (BMI) 42.0 Physical Exam Const alert, oriented x3, no apparent distress and healthy appearing General Appearance: cooperative GI normal to inspection, nondistended, normoactive bowel sounds, soft to palpation, non-tender and non-distended Percussion: normal to percussion Rectal Exam: deferred Assessment & Plan Assessment/Plan (1) Vomiting: (2) Diarrhea: (3) Encounter for colorectal cancer screening: PLAN: Assessment and Plan Assessment and Plan (1) Vomiting: Status: Acute Plan: This is a 54 yo male pt here today for evaluation of diarrhea, gas and vomiting. Pt has had these symptoms for awhile now but was never seen for them due to being on Hospice care. He was recently discharged from Hospice and his guardian wanted to have him evaluated. Emesis is described as brown and mucousy. It does not sound like hematemesis however he will still undergo EGD to evaluate his upper GI tract for inflammation. He does endorse heartburn but is unsure of frequency. Pt also with complaints of gas and diarrhea. Per chart, he is on BID senna and milk of mag as needed. He will undergo colonoscopy to rule out inflammation in his GI tract. Pending results will consider discontinuing medications for constipation/ adding new. Pt does not make his medical decisions. His nurse advised that he be scheduled for endoscopy and his guardian will call to give consent for this. If the guardian does not wish to proceed the procedures will be cancelled. -Colonoscopy and EGD -Pending results consider changing/adding medications -obtain consent from guardian -f/u after procedure
--- NOTE | 2024-12-09 11:35 | PCM.POST.ANE ---
Anesthesia: Postop Eval I Current Vital Signs Temperature: 97.8 F Pulse Rate: 78 Blood Pressure: 103/87 Respiratory Rate: 16 Pulse Ox: 95 Oxygen Delivery Method: Nasal Cannula Assessment Airway patent: Yes Spontaneous unlabored respirations: Yes Mental status: Asleep nausea: No Vomiting: No Anesthesia Complication: No Fluid Hydration Crystalloid volume administer (ml): 600 Total IV fluid infused: 600 Progress Note Anesthesia document: Postop Eval 1 completed: Yes
--- NOTE | 2024-12-09 11:44 | OP.EGD_ITS ---
Patient Name: Jacob Mac Procedure Date: 12/09/2024 10:54 AM Date of : 1970 Age: 54 Procedure: Upper GI endoscopy Indications: Dysphagia, Heartburn Providers: Kendall Mckenna DO Medicines: Monitored Anesthesia Care Patient Profile: This is a 54 year old male. Refer to note in patient chart for documentation of history and physical. Patient has symptoms of dysphagia with solids and chronic heartburn. Complications: No immediate complications. Procedure: Pre-Anesthesia Assessment: - Prior to the procedure, a History and Physical was performed, and patient medications and allergies were reviewed. The patient is competent. The risks and benefits of the procedure and the sedation options and risks were discussed with the patient. All questions were answered and informed consent was obtained. Patient identification and proposed procedure were verified by the physician in the pre-procedure area. Mental Status Examination: alert and oriented. Airway Examination: normal oropharyngeal airway and neck mobility. Respiratory Examination: clear to auscultation. CV Examination: normal. ASA Grade Assessment: II - A patient with mild systemic disease. After reviewing the risks and benefits, the patient was deemed in satisfactory condition to undergo the procedure. The anesthesia plan was to use monitored anesthesia care (MAC). Immediately prior to administration of medications, the patient was re-assessed for adequacy to receive sedatives. The heart rate, respiratory rate, oxygen saturations, blood pressure, adequacy of pulmonary ventilation, and response to care were monitored throughout the procedure. The physical status of the patient was re-assessed after the procedure. After obtaining informed consent, the endoscope was passed under direct vision. Throughout the procedure, the patient's blood pressure, pulse, and oxygen saturations were monitored continuously. The colonoscope was introduced through the mouth, and advanced to the second part of duodenum. The upper GI endoscopy was accomplished without difficulty. The patient tolerated the procedure well. 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 The maximum longitudinal extent of these mucosal changes was 12 cm in length. Mucosa was biopsied with a cold forceps for histology in a targeted manner at intervals of 1 cm in the middle third of the esophagus and in the lower third of the esophagus. A total of 12 specimen bottles were sent to pathology. Verification of patient identification for the specimen was done. Estimated blood loss was minimal. A moderate Schatzki ring was found in the upper third of the esophagus. A guidewire was placed and the scope was withdrawn. Dilation was performed with a Savary dilator with no resistance at 57 Fr. Multiple angiodysplastic lesions with no bleeding were found in the cardia. No gross lesions were noted in the entire examined duodenum. 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 Biopsied. - Moderate Schatzki ring. Dilated. 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 - No gross lesions in the entire examined duodenum. Recommendation: - Discharge patient to home. - Resume previous diet. - Continue present medications. - Await pathology results. - Repeat upper endoscopy in 1 year to assess disease activity. -Pantoprazole 40 mg p.o. twice daily Procedure Code(s): --- Professional --- 15275, Esophagogastroduodenoscopy, flexible, transoral; with insertion of guide wire followed by passage of dilator(s) through esophagus over guide wire [id number], 59,51, Esophagogastroduodenoscopy, flexible, transoral; with biopsy, single or multiple CPT copyright 2021 [employer]. All rights reserved. The codes documented in this report are preliminary and upon seat cover maker review may be revised to meet current compliance requirements. Kendall Mckenna DO 12/09/2024 11:43:29 AM This report has been signed electronically. Number of Addenda: 0 Note Initiated On: 12/09/2024 10:54 AM
--- NOTE | 2024-12-09 11:44 | OP.CCLET_ITS ---
12/09/2024 Patric Jiang Re : Upper GI endoscopy procedure for Jacob Mac Dear Apolinar This procedure was performed on December. 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 Biopsied. - Moderate Schatzki ring. Dilated. 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 - No gross lesions in the entire examined duodenum. Recommendations : - Discharge patient to home. - Resume previous diet. - Continue present medications. - Await pathology results. - Repeat upper endoscopy in 1 year to assess disease activity. -Pantoprazole 40 mg p.o. twice daily My findings are described in the full procedure note, which is enclosed. If I can be of further assistance, please feel free to contact me at . Sincerely, Kendall Friend, 12/09/2024 11:43:29 AM This report has been signed electronically.
--- NOTE | 2024-12-09 11:47 | OP.CCLET_ITS ---
12/09/2024 Patric Jiang Re : Colonoscopy procedure for Jacob Mac Dear Apolinar This procedure was performed on December. My impressions and recommendations are as follows: Impressions : - Congested mucosa in the entire examined colon. Biopsied. Recommendations : - Discharge patient to home. - Resume previous diet. - Continue present medications. - Await pathology results. - No repeat colonoscopy. My findings are described in the full procedure note, which is enclosed. If I can be of further assistance, please feel free to contact me at . Sincerely, Kendall Mckenna, 12/09/2024 11:46:47 AM This report has been signed electronically.
--- NOTE | 2024-12-09 11:47 | OP.COLON_ITS ---
Patient Name: Jacob Mac Procedure Date: 12/09/2024 11:13 AM Date of : 1970 Age: 54 Procedure: Colonoscopy Indications: Chronic diarrhea Providers: Kendall Mckenna DO Medicines: Monitored Anesthesia Care Patient Profile: This is a 54 year old male. Refer to note in patient chart for documentation of history and physical. Patient has symptoms of dysphagia with solids and chronic heartburn. Last Colonoscopy: more than 10 years ago. Complications: No immediate complications. Procedure: Pre-Anesthesia Assessment: - Prior to the procedure, a History and Physical was performed, and patient medications and allergies were reviewed. The patient is competent. The risks and benefits of the procedure and the sedation options and risks were discussed with the patient. All questions were answered and informed consent was obtained. Patient identification and proposed procedure were verified by the physician in the pre-procedure area. Mental Status Examination: alert and oriented. Airway Examination: normal oropharyngeal airway and neck mobility. Respiratory Examination: clear to auscultation. CV Examination: normal. ASA Grade Assessment: II - A patient with mild systemic disease. After reviewing the risks and benefits, the patient was deemed in satisfactory condition to undergo the procedure. The anesthesia plan was to use monitored anesthesia care (MAC). Immediately prior to administration of medications, the patient was re-assessed for adequacy to receive sedatives. The heart rate, respiratory rate, oxygen saturations, blood pressure, adequacy of pulmonary ventilation, and response to care were monitored throughout the procedure. The physical status of the patient was re-assessed after the procedure. After I obtained informed consent, the scope was passed under direct vision. Throughout the procedure, the patient's blood pressure, pulse, and oxygen saturations were monitored continuously. The colonoscope was introduced through the anus and advanced to the cecum, identified by appendiceal orifice and ileocecal valve. The colonoscopy was performed without difficulty. The patient tolerated the procedure well. The quality of the bowel preparation was adequate. The ileocecal valve, appendiceal orifice, and rectum were photographed. Scope In: 11:16:04 AM Scope Withdrawal Time 0 hours 6 minutes 53 seconds Scope Out: 11:32:27 AM Total Procedure Duration Time 0 hours 16 minutes 23 seconds Findings: The perianal and digital rectal examinations were normal. An area of mildly congested mucosa was found in the entire colon. Biopsies were taken with a cold forceps for histology. Verification of patient identification for the specimen was done. Estimated blood loss was minimal. Impression: - Congested mucosa in the entire examined colon. Biopsied. Recommendation: - Discharge patient to home. - Resume previous diet. - Continue present medications. - Await pathology results. - No repeat colonoscopy. Procedure Code(s): --- Professional --- 47943, Colonoscopy, flexible; with biopsy, single or multiple CPT copyright 2021 [employer]. All rights reserved. The codes documented in this report are preliminary and upon consumer relations specialist review may be revised to meet current compliance requirements. Kendall Mckenna DO 12/09/2024 11:46:47 AM This report has been signed electronically. Number of Addenda: 0 Note Initiated On: 12/09/2024 11:13 AM
--- NOTE | 2024-12-09 12:04 | SUR.PHASEI ---
scant blood coughed up in pacu, egd with biopsy
--- NOTE | 2024-12-09 14:14 | POSTOPAN2_ITS ---
Anesthesia Postop Eval I Sum Postop Eval Completion status Anesthesia document: Postop Eval 1 completed: Yes Anesthesia Postop Eval I Summary Anesthesia Postop Eval I Summary: Anesthesia Postop Eval I: Assessment Summary Airway patent Yes 12/09/24 11:39 CLINICAL APPLICATION SPECIALIST.[email or web address] Spontaneous unlabored Yes 12/09/24 11:39 CLINICAL APPLICATION SPECIALIST.MDOT respirations Mental status Asleep 12/09/24 11:39 CLINICAL APPLICATION SPECIALIST.MDOT nausea No 12/09/24 11:39 CLINICAL APPLICATION SPECIALIST.MDOT Vomiting No 12/09/24 11:39 CLINICAL APPLICATION SPECIALIST.MDOT Anesthesia Postop Eval I: Fluid Summary Crystalloid volume administer 600 12/09/24 11:39 CLINICAL APPLICATION SPECIALIST.MDOT (ml) Colloids volume administered ( ml) Blood Product volume administered (ml) Total IV fluid infused 600 12/09/24 11:39 CLINICAL APPLICATION SPECIALIST.MDOT Anesthesia Postop Eval I: Summary Notes Anesthesia Complication No 12/09/24 11:39 CLINICAL APPLICATION SPECIALIST.MDOT Anesthesia Complication Comment: Post-operative progress note Anesthesia: Postop Eval II Evaluation Mental status: Awake and Calm Pain Level: 2 nausea: No Vomiting: No Complications Anesthesia Complication: No
--- NOTE | 2024-12-09 14:14 | PCM.POSTANE2 ---
Anesthesia Postop Eval I Sum Postop Eval Completion status Anesthesia document: Postop Eval 1 completed: Yes Anesthesia Postop Eval I Summary Anesthesia Postop Eval I Summary: Anesthesia Postop Eval I: Assessment Summary Airway patent Yes 12/09/24 11:39 TERMINAL GAUGER SUPERVISOR.[email or web address] Spontaneous unlabored Yes 12/09/24 11:39 TERMINAL GAUGER SUPERVISOR.MDOT respirations Mental status Asleep 12/09/24 11:39 TERMINAL GAUGER SUPERVISOR.MDOT nausea No 12/09/24 11:39 TERMINAL GAUGER SUPERVISOR.MDOT Vomiting No 12/09/24 11:39 TERMINAL GAUGER SUPERVISOR.MDOT Anesthesia Postop Eval I: Fluid Summary Crystalloid volume administer 600 12/09/24 11:39 TERMINAL GAUGER SUPERVISOR.MDOT (ml) Colloids volume administered ( ml) Blood Product volume administered (ml) Total IV fluid infused 600 12/09/24 11:39 TERMINAL GAUGER SUPERVISOR.MDOT Anesthesia Postop Eval I: Summary Notes Anesthesia Complication No 12/09/24 11:39 TERMINAL GAUGER SUPERVISOR.MDOT Anesthesia Complication Comment: Post-operative progress note Anesthesia: Postop Eval II Evaluation Mental status: Awake and Calm Pain Level: 2 nausea: No Vomiting: No Complications Anesthesia Complication: No
== END 2024-12-09 12:34 | disposition home or self-care (01) ==
LOC: EN 09:44 → AC 09:44
PROVIDERS: PCP Family Medicine; Referring Provider Family Medicine; Visit Provider Internal Medicine Gastroenterology
PROC: 0DJD8ZZ Inspection of Lower Intestinal Tract, Via Natural or Artificial Opening Endoscopic (ICD-10-PCS; CPT 45378; principal; 2024-12-09 10:40)
DX: Z12.11 Encounter for screening for malignant neoplasm of colon (principal); F25.9 Schizoaffective disorder, unspecified; J44.9 Chronic obstructive pulmonary disease, unspecified; R13.10 Dysphagia, unspecified; I10 Essential (primary) hypertension; K22.2 Esophageal obstruction; K63.89 Other specified diseases of intestine; K21.9 Gastro-esophageal reflux disease without esophagitis; Z79.899 Other long term (current) drug therapy; Z79.51 Long term (current) use of inhaled steroids; Z79.82 Long term (current) use of aspirin
CPT/HCPCS: 43248; 43239; 45380; 88305; C1769

== ENCOUNTER 2025-01-13 11:36 | Emergency (ER) | payer MEDICARE, MEDICAID, SELFPAY ==
[2025-01-13] VITALS (13 sets, daily range): BP systolic 115–155; BP diastolic 62–114; PULSE 68–93; RESP 15–25; TEMP 36.6–37.4; O2SAT 71–96; BMI 45.3
--- NOTE | 2025-01-13 12:01 | RAD_ITS ---
PROCEDURE: CHEST PA AND LATERAL 01/13/2025 REASON FOR EXAM: SHORTNESS OF BREATH TECHNIQUE: CHEST PA AND LATERAL COMPARISON: November 18, 2024 FINDINGS: Hardware: EKG leads Heart: Mildly enlarged. Pericardial lipoma better seen on prior CT with mild mass effect on the left ventricular free wall. Mediastinum: No other mass Lungs: No dense consolidation. Subtle, granular acinar opacities are seen in the right lung likely corresponding to the small airways disease appreciated on prior chest CT. Bones: Normal RAD/Chest PA and Lateral IMPRESSION: 1. No dense consolidation. Subtle, granular opacities in the right mid and lo wer lung suggesting small airways disease. Acinar opacities represent filling with mucous, pus or fluid. Infectious etiologies i nclude atypical organisms like mycobacteria such as coccidioidomycosis, BRADY/MAC. 2. Cardiac enlargement. Pericardial lipoma. Consider echocardiogram on a non emergent basis to evaluate for left ventricular diastolic dysfunction. Reading Location: [id number]
--- NOTE | 2025-01-13 12:01 | EKG12_ITS ---
Test Reason : SOB Blood Pressure : */* mmHG Vent. Rate : 82 BPM Atrial Rate : 82 BPM P-R Int : 166 ms QRS Dur : 94 ms QT Int : 366 ms P-R-T Axes : 58 59 55 degrees QTcB Int : 427 ms Normal sinus rhythm Normal ECG Confirmed by TOM POWER ([id number]), online editor ANGELA OLSON ([id number]) on 01/17/2025 6:45:37 AM Referred By: Confirmed By: TOM POWER
--- NOTE | 2025-01-13 12:08 | ED.VIS.DYS ---
HPI History of Present Illness Chief Complaint: Shortness of Breath Narrative Narrative: Chief complaint and HPI: Shortness of breath and cough. 54-year-old gentleman with past medical history of schizophrenia, COPD CKD, HTN presents for [facility] who presents for evaluation of shortness of breath and hypoxia. Patient states that he has had a cough for the past several days. He is currently getting treated for an upper respiratory infection with Augmentin and azithromycin. This was started yesterday. He had a reported outpatient chest x-ray that was negative. This morning had increased shortness of breath with hypoxia requiring nasal cannula oxygen. He was sent to the emergency department. Patient states his shortness of breath has improved since arriving in the emergency department. He denies any chest pain, abdominal pain, nausea, vomiting. Endorses cough. Review of systems: See HPI Medications: As listed on the chart Allergies: As listed on the chart PFSH: Per chart Vital signs: As listed on the chart. Reviewed. Physical exam: Gen: A&O x3, NAD Head: Normocephalic, atraumatic Eyes: No sclera icterus, conjunctiva clear ENT: Moist mucous membranes Neck: Trachea midline, No JVD CV: RRR, no murmurs, no peripheral edema Resp: Lungs diminished, expiratory wheezing, on 4 L nasal cannula GI: Abd soft, non-distended, non-tender, no r/r/g Musc: Full ROM, no deformity Skin: Warm, dry Neuro: Alert, oriented, grossly intact, sensation intact Psych: Cooperative, appropriate mood and affect [facility] Medical History Schizophrenia Depression Anxiety Open wound Abrasion Arthritis History of renal disease Dietary restriction Difficulty swallowing History of diverticulitis Heartburn Gastric reflux Non-smoker Aspiration pneumonia MRSA (methicillin resistant staph aureus) culture positive Acidosis, lactic GURJIT (acute kidney injury) Morbid obesity with BMI of 40.0-44.9, adult Intermittent explosive disorder Schizoaffective disorder Acute metabolic encephalopathy COPD (chronic obstructive pulmonary disease) Hypoxia Pneumonia Bradycardia Chronic anal fissure Cellulitis Adrenocortical insufficiency Anemia Schizo affective schizophrenia Legally blind Intermittent explosive disorder COPD (chronic obstructive pulmonary disease) Hypertension Asthma Gastroparesis Cyclical vomiting Thrombocythemia Hypocalcemia Anxiety Home Medications ?Medication ?Instructions ?Recorded ?Last Taken ?Type albuterol sulfate 0.63 mg/3 mL 0.63 mg inhalation Q4H PRN 06/04/22 Unknown History solution for nebulization Shortness Of Breath benztropine 1 mg tablet 1 mg PO BID 06/04/22 07/23/22 History cyanocobalamin (vitamin B-12) 1,000 mcg PO WE SUPPLEMENT 06/04/22 07/24/22 08:00 History 1,000 mcg tablet escitalopram oxalate 10 mg tablet 10 mg PO BID MENTAL HEALTH 06/04/22 07/24/22 08:00 History (Lexapro) fludrocortisone 0.1 mg tablet 0.1 mg PO DAILY 06/04/22 07/24/22 08:00 History fluticasone propionate 50 1 spray intranasal DAILY ALLERGIES 06/04/22 07/24/22 08:00 History mcg/actuation nasal spray,suspension (Flonase Allergy Relief) iloperidone 12 mg tablet (Fanapt) 12 mg PO DAILY MENTAL HEALTH 06/04/22 07/23/22 History iloperidone 6 mg tablet (Fanapt) 6 mg PO DAILY MENTAL HEALTH 06/04/22 07/24/22 08:00 History quetiapine 300 mg tablet,extended 600 mg PO QHS MENTAL HEALTH 06/04/22 07/23/22 History release 24 hr (Seroquel XR) aluminum-mag hydroxide-simethicone 30 ml PO Q4H PRN Heartburn 07/24/22 Unknown History 200 mg-200 mg-20 mg/5 mL oral susp aspirin 81 mg tablet,delayed 81 mg PO DAILY HEART HEALTH 07/24/22 07/24/22 08:00 History release cholecalciferol (vitamin D3) 50 50 mcg PO DAILY SUPPLEMENT 07/24/22 07/24/22 08:00 History mcg (2,000 unit) tablet (Vitamin D3) loperamide 2 mg capsule 2 mg PO Q4H PRN STOOL 07/24/22 07/24/22 09:30 History magnesium hydroxide 400 mg/5 mL 30 ml PO Q24H PRN Constipation 07/24/22 Unknown History oral suspension (Milk of Magnesia) propranolol 80 mg capsule,24 80 mg PO DAILY BLOOD PRESSURE 07/24/22 07/24/22 08:00 History hr,extended release L.acidophil-L.casei-B.bifid-B.longum-FOS 1 cap PO DAILY 06/24/24 Unknown History 2 billion cell-50 mg capsule (Probiotic Blend) divalproex 125 mg capsule,delayed 250 mg PO Q8H 06/24/24 Unknown History release sprinkle folic acid 400 mcg tablet 1 mg PO DAILY 06/24/24 Unknown History hydrocortisone 5 mg tablet 15 mg PO DAILY 06/24/24 Unknown History lisinopril 20 mg tablet 20 mg PO DAILY 06/24/24 Unknown History pantoprazole 40 mg tablet,delayed 40 mg PO DAILY 06/24/24 Unknown History release hydralazine 10 mg tablet 10 mg PO TID 07/16/24 Unknown History lorazepam 1 mg tablet 2 mg (2 x 1 mg) PO TID #6 tabs 07/20/24 Unknown Rx lorazepam 2 mg tablet (Ativan) 2 mg PO Q6H PRN Agitation #6 tabs 07/20/24 Unknown Rx hydrochlorothiazide 25 mg tablet 25 mg PO DAILY 08/17/24 Unknown History lorazepam 2 mg/mL injection syringe 2 mg IM Q6H PRN agitation 08/17/24 Unknown History potassium chloride 10 mEq 30 meq PO DAILY 08/17/24 Unknown History capsule,extended release sennosides 8.6 mg-docusate sodium 2 tab PO BID #0 tabs 08/20/24 Unknown Rx 50 mg tablet (Stimulant Laxative Plus) acetaminophen 325 mg tablet 650 mg PO Q4H PRN fever or pain 10/11/24 Unknown History (Tylenol) amlodipine 10 mg tablet (Norvasc) 10 mg PO QDAY 10/11/24 Unknown History docusate sodium 100 mg capsule 100 mg PO BID 11/18/24 Unknown History (Colace) ergocalciferol (vitamin D2) 1,250 1,250 mcg PO QWEEK 11/18/24 Unknown History mcg (50,000 unit) capsule polyethylene glycol 3350 17 17 g PO DAILY 11/18/24 Unknown History gram/dose oral powder (ClearLax) calcium carbonate 500 mg PO TID SUPPLEMENT 30 days 11/23/24 07/24/22 08:00 Rx #90 tabs ferrous sulfate 325 mg (65 mg 325 mg PO QODAY SUPPLEMENT 30 days 11/23/24 07/24/22 08:00 Rx iron) tablet (FeroSul) #0 tabs levofloxacin 750 mg tablet 750 mg PO DAILY 7 days #7 tabs 01/13/25 Unknown Rx prednisone 20 mg tablet 60 mg (3 x 20 mg) PO DAILY 5 days 01/13/25 Unknown Rx #15 TABLETS Allergy/AdvReac Type Severity Reaction Status Date / Time acetic acid Allergy PT UNABLE Verified 12/09/24 10:06 TO RESPOND-NEEDS F/U nut - unspecified (nuts) Allergy PT UNABLE Verified 12/09/24 10:06 TO RESPOND-NEEDS F/U Penicillins Allergy PT UNABLE Verified 12/09/24 10:06 TO RESPOND-NEEDS F/U risperidone Allergy PT UNABLE Verified 12/08/24 12:43 TO RESPOND-NEEDS F/U Family History Father COPD (chronic obstructive pulmonary disease) Mother Hypertension Surgical History History of eye surgery S/P repair of hydrocele Social History housing: other details: Nursing facility with psychiatric focus. Smoking Status: Never smoker alcohol intake: never substance use type: does not use EXAM Physical Exam Const Vital Signs: 01/13/25 11:37 01/13/25 11:43 01/13/25 11:44 Temperature 99 F Temperature Source Axillary Pulse Rate 93 Respiratory Rate 24 H Respiratory Effort Normal Non-Labored Respiratory Depth Normal Respiratory Pattern Normal Blood Pressure 133/114 H Blood Pressure Mean 120 Pulse Ox 71 94 Oxygen Delivery Method Room Air Nasal Cannula Nasal Cannula Oxygen Flow Rate (L/min) 4 4 01/13/25 12:09 01/13/25 12:23 01/13/25 12:43 Temperature 99.4 F H Temperature Source Oral Pulse Rate 93 78 Respiratory Rate 16 19 H Respiratory Effort Respiratory Depth Respiratory Pattern Blood Pressure 148/74 H Blood Pressure Mean 98 Pulse Ox 96 Oxygen Delivery Method Nasal Cannula Nasal Cannula Oxygen Flow Rate (L/min) 4 4 01/13/25 13:00 01/13/25 13:55 01/13/25 14:00 Temperature 99 F 98.7 F Temperature Source Oral Oral Pulse Rate 72 71 Respiratory Rate 20 H 15 Respiratory Effort Respiratory Depth Respiratory Pattern Blood Pressure 115/62 155/76 H Blood Pressure Mean 79 102 Pulse Ox 92 89 93 Oxygen Delivery Method Nasal Cannula Nasal Cannula Nasal Cannula Oxygen Flow Rate (L/min) 4 4 6 01/13/25 15:00 01/13/25 15:00 01/13/25 16:00 Temperature 98.6 F 97.8 F Temperature Source Oral Oral Pulse Rate 68 75 78 Respiratory Rate 17 19 H 19 H Respiratory Effort Respiratory Depth Respiratory Pattern Blood Pressure 155/78 H 155/68 H 151/77 H Blood Pressure Mean 103 91 101 Pulse Ox 93 93 95 Oxygen Delivery Method Nasal Cannula Oxygen Flow Rate (L/min) 6 3 01/13/25 16:46 Temperature Temperature Source Pulse Rate 83 Respiratory Rate 21 H Respiratory Effort Respiratory Depth Respiratory Pattern Blood Pressure 150/80 H Blood Pressure Mean 98 Pulse Ox 93 Oxygen Delivery Method Oxygen Flow Rate (L/min) MDM MDM MDM Narrative Medical decision making narrative: 54-year-old gentleman with past medical history of schizophrenia, COPD CKD, HTN presents for [facility] who presents for evaluation of shortness of breath and hypoxia. Patient states that he has had a cough for the past several days. He is currently getting treated for an upper respiratory infection with Augmentin and azithromycin. This was started yesterday. He had a reported outpatient chest x-ray that was negative. This morning had increased shortness of breath with hypoxia requiring nasal cannula oxygen. On presentation, patient in no acute distress. He is requiring 4 L nasal cannula. Differential diagnosis includes but is not limited to pneumonia, COPD exacerbation, COVID, influenza, URI. Suspect less likely ACS. DuoNebs and Solu-Medrol ordered. Respiratory workup ordered. Chest x-ray without consolidation. Per radiology there is subtle granular opacities in the right mid and lower lung suggesting small airway disease. Acinar opacities represent feeling with mucus, pus or fluid. Infectious etiologies include atypical organisms. Pericardial lipoma. Given this finding we will perform Chest CT, since no clear etiology for hypoxia will order CTA to rule out PE although low suspicion. CBC without leukocytosis. Patient has baseline anemia of 10.1. Platelets unremarkable. BMP relatively unremarkable. Troponin unremarkable x 2. BNP unremarkable. On reevaluation, patient's wheezing and shortness of breath has improved. He is still requiring nasal cannula currently [address] of the chest shows no evidence of PE. Patchy bibasilar infiltrates worse on the right side. Suspect likely aspiration pneumonia given his history as well as dysphagia. However given radiology recommendation about atypical organisms, I did reach out to pulmonology Dr. Alvarado. He reviewed the imaging. Low suspicion for atypical organisms. Agrees that this is likely aspiration pneumonia. given that patient has only been on 1 day of antibiotics he has not truly failed outpatient management. Agrees that patient is stable to trial outpatient antibiotics and oxygen as needed for hypoxia at the care facility. Patient was updated of all the results and confirmed understanding of the plan. I will prescribe him with a course of prednisone for COPD flare secondary to likely aspiration pneumonia. I contacted his care facility and personally spoke to the nurse. They have oxygen available at the facility and are comfortable with the patient discharging home. He has penicillins listed here as an allergy therefore we stop the Augmentin and azithromycin and will place him on a 7-day course of Levaquin. First dose given here. Follow-up with PCP. Oxygen as needed for hypoxia. Return precautions explained. Patient and nurse over the phone confirmed understanding of the plan. Patient stable to discharge home. EKG: Interpreted by me/EM physician: EKG shows normal sinus rhythm without any acute ischemic changes. Heart rate 82 Diagnostic: Interpreted by me/EM physician: Chest x-ray without consolidation, pneumothorax, effusion. Cardiomegaly. Impression: 1. Aspiration pneumonia 2. Acute hypoxia secondary to #1 Lab Data Labs: Laboratory Results - last 24 hr 01/13/25 01/13/25 11:44 13:55 WBC 9.0 RBC 3.35 L Hgb 10.1 L Hct 31.5 L MCV 94.0 MCH 30.1 MCHC 32.1 RDW Std Deviation 49.8 H RDW Coeff of Eleanor 14.4 Plt Count 196 MPV 8.9 Immature Gran % (Auto) 0.400 Neut % (Auto) 76.6 H Lymph % (Auto) 4.7 L [place] % (Auto) 13.2 H Eos % (Auto) 4.8 Baso % (Auto) 0.3 Absolute Neuts (auto) 6.9 Absolute Lymphs (auto) 0.42 L Nucleated RBC % 0 Sodium 136 Potassium 4.1 Chloride 90 L Carbon Dioxide 35.1 H Anion Gap 10 BUN 13 Creatinine 0.91 Estim Creat Clear Calc 109.63 Est GFR (MDRD) Non-Af 101 BUN/Creatinine Ratio 14.2 Glucose 128 H Calcium 9.4 Troponin T High Sens 8 D Troponin T Hi Sens 2 Hr 8 NT pro BNP II 62 Radiography Diagnostic Testing: Clinical Impression(s) from Imaging Studies Chest X-Ray 01/13/25 12:01 IMPRESSION: 1. No dense consolidation. Subtle, granular opacities in the right mid and lower lung suggesting small airways disease. Acinar opacities represent filling with mucous, pus or fluid. Infectious etiologies include atypical organisms like mycobacteria such as coccidioidomycosis, BRADY/MAC. 2. Cardiac enlargement. Pericardial lipoma. Consider echocardiogram on a nonemergent basis to evaluate for left ventricular diastolic dysfunction. Reading Location: [id number] Chest CTA 01/13/25 14:32 IMPRESSION: No evidence of pulmonary embolism. Patchy bibasilar infiltrates worse on the right side. Reading Location: [id number] Discharge Plan Triage Chief Complaint: Shortness of Breath ED Provider: Bin Quick Dx/Rx/DC Orders Clinical Impression: Pneumonia, Hypoxia Instructions: ED COPD Flare, ED Pneumonia (Adult) Prescriptions: New prednisone 20 mg tablet 60 mg PO DAILY 5 Days Qty: 15 0RF levofloxacin 750 mg tablet 750 mg PO DAILY 7 Days Qty: 7 0RF No Action amlodipine [Norvasc] 10 mg tablet 10 mg PO QDAY acetaminophen [Tylenol] 325 mg tablet 650 mg PO Q4H PRN (Reason: fever or pain) albuterol sulfate 0.63 mg/3 mL solution for nebulization 0.63 mg inhalation Q4H PRN (Reason: Shortness Of Breath) cyanocobalamin (vitamin B-12) 1,000 mcg Tablet 1,000 mcg PO WE benztropine 1 mg Tablet 1 mg PO BID fluticasone propionate [Flonase Allergy Relief] 50 mcg/actuation [place],Suspension 1 spray INTRANASAL DAILY fludrocortisone 0.1 mg Tablet 0.1 mg PO DAILY escitalopram oxalate [Lexapro] 10 mg Tablet 10 mg PO BID quetiapine [Seroquel XR] 300 mg Tablet Extended Release 24 Hr 600 mg PO QHS Fanapt 6 mg tablet 6 mg PO DAILY Fanapt 12 mg tablet 12 mg PO DAILY loperamide 2 mg Capsule 2 mg PO Q4H PRN (Reason: STOOL) aspirin 81 mg Tablet,Delayed Release (Dr/Ec) 81 mg PO DAILY magnesium hydroxide [Milk of Magnesia] 400 mg/5 mL Suspension 30 ml PO Q24H PRN (Reason: Constipation) propranolol 80 mg capsule,extended release 24 hr 80 mg PO DAILY alum-mag hydroxide-simeth 200-200-20 mg/5 mL Suspension 30 ml PO Q4H PRN (Reason: Heartburn) cholecalciferol (vitamin D3) [Vitamin D3] 50 mcg (2,000 unit) Tablet 50 mcg PO DAILY hydralazine 10 mg tablet 10 mg PO TID lorazepam 1 mg Tablet 2 mg PO TID Qty: 6 0RF lorazepam [Ativan] 2 mg Tablet 2 mg PO Q6H PRN (Reason: Agitation) Qty: 6 0RF docusate sodium [Colace] 100 mg capsule 100 mg PO BID polyethylene glycol 3350 [ClearLax] 17 gram/dose powder 17 g PO DAILY ergocalciferol (vitamin D2) 1,250 mcg (50,000 unit) capsule 1,250 mcg PO QWEEK calcium carbonate 500 mg calcium (1,250 mg) Tablet 500 mg PO TID 30 Days Qty: 90 0RF ferrous sulfate [FeroSul] 325 mg (65 mg iron) Tablet 325 mg PO QODAY 30 Days Qty: 0 0RF folic acid 400 mcg tablet 1 mg PO DAILY hydrocortisone 5 mg tablet 15 mg PO DAILY lisinopril 20 mg tablet 20 mg PO DAILY Probiotic Blend 2 billion cell-50 mg capsule 1 cap PO DAILY Rx Instructions: give with meal/snack pantoprazole 40 mg tablet,delayed release (DR/EC) 40 mg PO DAILY divalproex 125 mg capsule, delayed rel sprinkle 250 mg PO Q8H lorazepam 2 mg/mL syringe 2 mg IM Q6H PRN (Reason: agitation) hydrochlorothiazide 25 mg tablet 25 mg PO DAILY potassium chloride 10 mEq capsule, extended release 30 meq PO DAILY Patient Comments: [NO ORIGINAL SIG] sennosides-docusate sodium [Stimulant Laxative Plus] 8.6-50 mg Tablet 2 tab PO BID Qty: 0 0RF Rx Instructions: Hold for diarrhea Primary Care Provider: Lex Jiang Referrals: Lex Jiang MD [Primary Care Provider] - 3-5 Days Activity Restrictions/Additional Instructions: Patient received his first dose of steroids here in the emergency department. Next dose to be taken tomorrow. He has pneumonia. Concern is for aspiration. Currently patient is on a 5-day course of antibiotics with Augmentin and azithromycin. He has received only one day of his antibiotics which was yesterday. Will switch him to a 7-day course of Levaquin as he has Augmentin listed as an allergy. He received his first dose here. Oxygen as needed for hypoxia. Return back to the emergency department if symptoms change or worsen. He needs to follow-up with his primary care physician. Print Language: Swedish Disposition Disposition: Home, Self Care
[2025-01-13 12:14] LABS: Hematocrit 31.5 % (40-54); Hemoglobin 10.1 g/dL (13.0-16.5); Immature Granulocytes Count 0.040 X10^3/uL (0.0-0.0); Mean Corp Hgb Conc 32.1 g/dL (32-36); Mean Corpuscular Volume 94.0 fL (80-94); Mean Platelet Vol. 8.9 fl (6.2-12.0); NRBC Flagged by Analyzer 0 % (0-5); POSITIVE DIFFERENTIAL YES; Platelet Count 196 K/mm3 (150-450); RBC Distribution Width CV 14.4 % (11.6-14.6); RBC Distribution Width SD 49.8 fl (35.1-43.9); Red Blood Count 3.35 M/mm3 (4.6-6.2); White Blood Count 9.0 K/mm3 (4.4-11.0)
[2025-01-13 12:30] LABS: Pro- Brain NATRIURETIC PEPTIDE 62 pg/mL (<=900); Troponin T High Sensitivity 8 ng/L (<=22)
[2025-01-13 12:49] LABS: Anion Gap 10 (5-15); BUN 13 mg/dL (4-19); BUN/Creat Ratio 14.2 RATIO (10-20); Calcium,Total 9.4 mg/dL (7.6-11.0); Carbon Dioxide 35.1 mmol/L (21.0-32.0); Chloride 90 mmol/L (98-108); Estimated Creatinine Clearance 109.63 ml/min (50-250); Glucose 128 mg/dL (70-99); Potassium 4.1 mmol/L (3.3-5.1)
[2025-01-13 14:28] LABS: Troponin T High Sens 2 HR 8 ng/L (<=22)
--- NOTE | 2025-01-13 14:32 | CT_ITS ---
PROCEDURE: CTA CHEST W/WO CONTRAST 01/13/2025 REASON FOR EXAM: PE, SHORTNESS OF BREATH TECHNIQUE: CTA CHEST W/WO CONTRAST Multiplanar Sagittal and Coronal images were obtained. 3D post processing was performed CONTRAST: Isovue 300 VOLUME: 100 mL One or more dose reduction techniques were used (e.g., Automated exposure control, adjustment of the mA and/or kV according to patient size, use of iterative reconstruction technique). RADIATION DOSE SUMMARY: CTDlvol: 19.6 mGy DLP: 515.70 mGycm COMPARISON: Prior study dated November 18, 2024. FINDINGS: Hardware: None Lymph nodes: Small mediastinal lymph nodes. Heart: Borderline cardiomegaly. No coronary artery calcification. Thoracic Aorta: Unremarkable Pulmonary Vessels: No pulmonary embolism. Delete Lungs and Airways: Patchy bibasilar pulmonary infiltrates worse at the right lung base. Pleura: No pleural effusion Upper Abdomen: Unremarkable Bones: Degenerative changes of the thoracic spine. CT/CTA Chest W/WO Contrast IMPRESSION: No evidence of pulmonary embolism. Patchy bibasilar infiltrates worse on the right side. Reading Location: [id number]
--- NOTE | 2025-01-13 18:33 | ED.RN ---
Spoke with Angela velásquez hospice clinical manager TRAINING AND DEVELOPMENT PROJECT LEADER with patient update.
--- NOTE | 2025-01-13 20:53 | ED.RN ---
Report called to Maritza at [facility].
== END 2025-01-13 20:55 | disposition home or self-care (01) ==
PROVIDERS: Emergency Provider Surgery; PCP Family Medicine; Visit Provider Surgery
DX: J18.9 Pneumonia, unspecified organism (principal); J69.0 Pneumonitis due to inhalation of food and vomit; J44.1 Chronic obstructive pulmonary disease with (acute) exacerbation; I12.9 Hypertensive chronic kidney disease with stage 1 through stage 4 chronic kidney disease, or unspecified chronic kidney disease; R09.02 Hypoxemia; K21.9 Gastro-esophageal reflux disease without esophagitis
CPT/HCPCS: 71046; 71275; 80048; 83880; 84484; 85025; 87631; 93005; 94640; 96374; 99285; Q9967; A4216

== ENCOUNTER → 2025-04-08 | Outpatient (CLI) | payer MEDICARE, MEDICAID, SELFPAY ==
--- NOTE | 2025-04-08 08:19 | ECHOD_ITS ---
Reason For Study ECHO/Echo Complete
== END | disposition home or self-care (01) ==
PROVIDERS: PCP Family Medicine; Referring Provider Family Medicine; Visit Provider Family Medicine
DX: I11.0 Hypertensive heart disease with heart failure (principal); J96.11 Chronic respiratory failure with hypoxia; I50.9 Heart failure, unspecified; I73.9 Peripheral vascular disease, unspecified
CPT/HCPCS: 93306

== ENCOUNTER 2025-04-11 07:13 | Inpatient (IN) | payer MEDICARE, MEDICAID, SELFPAY ==
[2025-04-11] VITALS (33 sets, daily range): BP systolic 110–162; BP diastolic 58–100; PULSE 81–134; RESP 18–32; TEMP 36.7–39.2; O2SAT 79–100; BMI 43.4; BMI 45.1
--- NOTE | 2025-04-11 07:25 | ED.RN ---
pt is poor historian.
--- NOTE | 2025-04-11 07:27 | EKG12_ITS ---
Test Reason : SOB Blood Pressure : */* mmHG Vent. Rate : 134 BPM Atrial Rate : 134 BPM P-R Int : 154 ms QRS Dur : 88 ms QT Int : 280 ms P-R-T Axes : 59 72 12 degrees QTcB Int : 418 ms Sinus tachycardia Otherwise normal ECG Confirmed by Servando Hernandez ([id number]), graphic editor CHARISSA BOYD ([id number]) on 04/12/2025 8:51:54 AM Referred By: ELIUD Confirmed By: Servando Hernandez
--- NOTE | 2025-04-11 07:30 | ED.VIS.DYS ---
HPI History of Present Illness Chief Complaint: Shortness of Breath Informant: patient, EMS and SNF Narrative Narrative: 55-year-old male arriving via EMS with a chief complaint of dyspnea. EMS states they were dispatched to SNF for respiratory distress. Is reported that the patient was significantly hypoxic and was getting a breathing treatment when they arrived. Patient notes he possibly vomited during the night but he is not sure. Patient has an underlying mental health disorder (schizoaffective disorder) which makes it difficult to get history from him. He notes a cough. I see on the SNF paperwork he has a primary adrenal insufficiency history and is on oral hydrocortisone. He is also on Depakote. [facility] Medical History Esophageal obstruction Kidney disease Schizophrenia Depression Anxiety Open wound Abrasion Arthritis History of renal disease Dietary restriction Difficulty swallowing History of diverticulitis Heartburn Gastric reflux Non-smoker Aspiration pneumonia MRSA (methicillin resistant staph aureus) culture positive Acidosis, lactic GURJIT (acute kidney injury) Morbid obesity with BMI of 40.0-44.9, adult Intermittent explosive disorder Schizoaffective disorder Acute metabolic encephalopathy COPD (chronic obstructive pulmonary disease) Hypoxia Pneumonia Bradycardia Chronic anal fissure Cellulitis Adrenocortical insufficiency Anemia Schizo affective schizophrenia Legally blind Intermittent explosive disorder COPD (chronic obstructive pulmonary disease) Hypertension Asthma Gastroparesis Cyclical vomiting Thrombocythemia Hypocalcemia Anxiety Home Medications Medication Instructions Recorded Last Taken Type albuterol sulfate 0.63 mg/3 mL 0.63 mg inhalation Q4H PRN 06/04/22 Unknown History solution for nebulization Shortness Of Breath benztropine 1 mg tablet 1 mg PO BID 06/04/22 07/23/22 History cyanocobalamin (vitamin B-12) 1,000 mcg PO WE SUPPLEMENT 06/04/22 07/24/22 08:00 History 1,000 mcg tablet escitalopram oxalate 10 mg tablet 10 mg PO BID MENTAL HEALTH 06/04/22 07/24/22 08:00 History (Lexapro) fludrocortisone 0.1 mg tablet 0.1 mg PO DAILY 06/04/22 07/24/22 08:00 History fluticasone propionate 50 1 spray intranasal DAILY ALLERGIES 06/04/22 07/24/22 08:00 History mcg/actuation nasal spray,suspension (Flonase Allergy Relief) iloperidone 12 mg tablet (Fanapt) 12 mg PO DAILY MENTAL HEALTH 06/04/22 07/23/22 History iloperidone 6 mg tablet (Fanapt) 6 mg PO DAILY MENTAL HEALTH 06/04/22 07/24/22 08:00 History quetiapine 300 mg tablet,extended 600 mg PO QHS MENTAL HEALTH 06/04/22 07/23/22 History release 24 hr (Seroquel XR) aluminum-mag hydroxide-simethicone 30 ml PO Q4H PRN Heartburn 07/24/22 Unknown History 200 mg-200 mg-20 mg/5 mL oral susp aspirin 81 mg tablet,delayed 81 mg PO DAILY HEART HEALTH 07/24/22 07/24/22 08:00 History release cholecalciferol (vitamin D3) 50 50 mcg PO DAILY SUPPLEMENT 07/24/22 07/24/22 08:00 History mcg (2,000 unit) tablet (Vitamin D3) loperamide 2 mg capsule 2 mg PO Q4H PRN STOOL 07/24/22 07/24/22 09:30 History magnesium hydroxide 400 mg/5 mL 30 ml PO Q24H PRN Constipation 07/24/22 Unknown History oral suspension (Milk of Magnesia) propranolol 80 mg capsule,24 80 mg PO DAILY BLOOD PRESSURE 07/24/22 07/24/22 08:00 History hr,extended release L.acidophil-L.casei-B.bifid-B.longum-FOS 1 cap PO DAILY 06/24/24 Unknown History 2 billion cell-50 mg capsule (Probiotic Blend) divalproex 125 mg capsule,delayed 250 mg PO Q8H 06/24/24 Unknown History release sprinkle folic acid 400 mcg tablet 1 mg PO DAILY 06/24/24 Unknown History hydrocortisone 5 mg tablet 15 mg PO DAILY 06/24/24 Unknown History lisinopril 20 mg tablet 20 mg PO DAILY 06/24/24 Unknown History pantoprazole 40 mg tablet,delayed 40 mg PO DAILY 06/24/24 Unknown History release hydralazine 10 mg tablet 10 mg PO TID 07/16/24 Unknown History lorazepam 1 mg tablet 2 mg (2 x 1 mg) PO TID #6 tabs 07/20/24 Unknown Rx lorazepam 2 mg tablet (Ativan) 2 mg PO Q6H PRN Agitation #6 tabs 07/20/24 Unknown Rx hydrochlorothiazide 25 mg tablet 25 mg PO DAILY 08/17/24 Unknown History lorazepam 2 mg/mL injection syringe 2 mg IM Q6H PRN agitation 08/17/24 Unknown History potassium chloride 10 mEq 30 meq PO DAILY 08/17/24 Unknown History capsule,extended release sennosides 8.6 mg-docusate sodium 2 tab PO BID #0 tabs 08/20/24 Unknown Rx 50 mg tablet (Stimulant Laxative Plus) acetaminophen 325 mg tablet 650 mg PO Q4H PRN fever or pain 10/11/24 Unknown History (Tylenol) amlodipine 10 mg tablet (Norvasc) 10 mg PO QDAY 10/11/24 Unknown History docusate sodium 100 mg capsule 100 mg PO BID 11/18/24 Unknown History (Colace) ergocalciferol (vitamin D2) 1,250 1,250 mcg PO QWEEK 11/18/24 Unknown History mcg (50,000 unit) capsule polyethylene glycol 3350 17 17 g PO DAILY 11/18/24 Unknown History gram/dose oral powder (ClearLax) calcium carbonate 500 mg PO TID SUPPLEMENT 30 days 11/23/24 07/24/22 08:00 Rx #90 tabs ferrous sulfate 325 mg (65 mg 325 mg PO QODAY SUPPLEMENT 30 days 11/23/24 07/24/22 08:00 Rx iron) tablet (FeroSul) #0 tabs levofloxacin 750 mg tablet 750 mg PO DAILY 7 days #7 tabs 01/13/25 Unknown Rx prednisone 20 mg tablet 60 mg (3 x 20 mg) PO DAILY 5 days 01/13/25 Unknown Rx #15 TABLETS Allergy/AdvReac Type Severity Reaction Status Date / Time acetic acid Allergy PT UNABLE Verified 04/11/25 07:22 TO RESPOND-NEEDS F/U nut - unspecified (nuts) Allergy PT UNABLE Verified 04/11/25 07:22 TO RESPOND-NEEDS F/U Penicillins Allergy PT UNABLE Verified 04/11/25 07:22 TO RESPOND-NEEDS F/U risperidone Allergy PT UNABLE Verified 04/11/25 07:22 TO RESPOND-NEEDS F/U Family History Father COPD (chronic obstructive pulmonary disease) Mother Hypertension Surgical History History of eye surgery S/P repair of hydrocele Social History housing: other details: Nursing facility with psychiatric focus. Smoking Status: Never smoker alcohol intake: never substance use type: does not use ROS ROS ED ROS Narrative Review of systems is difficult to obtained given the patient's baseline mental status. Constitutional Constitutional ED: Denies chills or weight loss Eyes Eyes: Denies change in vision or diplopia ENT ENT ED: Denies ear pain, rhinorrhea or sore throat Cardiovascular Cardiovascular: Reports chest pain; Denies orthopnea, palpitations or racing heartbeat Respiratory/Chest Respiratory/Chest: Reports cough, dyspnea and dyspnea on exertion; Denies orthopnea Gastrointestinal Gastrointestinal: Reports nausea and vomiting; Denies abdominal pain or diarrhea Genitourinary Genitourinary ED: Denies dysuria, hematuria or urinary frequency Musculoskeletal Musculoskeletal: Denies arthralgias or myalgias Integumentary Denies abscess or rash Neurologic Neurologic: Denies headache(s) or weakness Psychiatric Psychiatric: Denies anxiety, depression, suicidal ideation or suicidal thoughts Endocrine Endocrinology: Denies polydipsia, polyphagia or polyuria Allergic/Immunologic Allergic/Immunologic ED: Denies mouth swelling, tongue swelling or urticaria EXAM Physical Exam Const Vital Signs: 04/11/25 07:14 04/11/25 07:19 04/11/25 07:27 Temperature 100.4 F H 102 F H Temperature Source Axillary Axillary Pulse Rate 134 H 128 H Respiratory Rate 30 H 21 H Respiratory Effort Respiratory Pattern Blood Pressure 119/100 H Blood Pressure Mean 106 Pulse Ox 85 97 Oxygen Delivery Method Non-Rebreather Non-Rebreather Non-Rebreather Oxygen Flow Rate (L/min) 15 Fraction of Inspired Oxygen (FIO2) 04/11/25 07:30 04/11/25 07:30 04/11/25 07:33 Temperature Temperature Source Pulse Rate 125 H Respiratory Rate 25 H Respiratory Effort Short of Breath Respiratory Pattern Tachypnea Blood Pressure Blood Pressure Mean Pulse Ox 93 Oxygen Delivery Method Non-Rebreather Non-Rebreather Oxygen Flow Rate (L/min) 15 Fraction of Inspired Oxygen (FIO2) 100 04/11/25 08:05 04/11/25 08:10 04/11/25 08:19 Temperature 102.5 F H Temperature Source Oral Pulse Rate 124 H Respiratory Rate 19 H Respiratory Effort Respiratory Pattern Blood Pressure 113/64 Blood Pressure Mean 80 Pulse Ox 100 94 93 Oxygen Delivery Method Non-Rebreather Venturi Mask Oxygen Flow Rate (L/min) 15 12 Fraction of Inspired Oxygen (FIO2) 100 50 50 04/11/25 08:55 04/11/25 08:55 04/11/25 08:55 Temperature Temperature Source Pulse Rate 117 H Respiratory Rate 20 H Respiratory Effort Respiratory Pattern Blood Pressure Blood Pressure Mean Pulse Ox 89 Oxygen Delivery Method Venturi Mask Oxygen Flow Rate (L/min) 12 Fraction of Inspired Oxygen (FIO2) 50 55 04/11/25 09:03 Temperature Temperature Source Pulse Rate Respiratory Rate Respiratory Effort Respiratory Pattern Blood Pressure Blood Pressure Mean Pulse Ox Oxygen Delivery Method Oxygen Flow Rate (L/min) Fraction of Inspired Oxygen (FIO2) 74 Positive well nourished, well developed and obese General Appearance ED: well developed Nutritional Appearance: obese HEENT Reports normocephalic, head/scalp atraumatic and moist mucous membranes HEENT Narrative: There appears to be some dried emesis on his mustache and right lateral. Eyes PERRL and EOMs intact bilaterally Neck no lymphadenopathy, supple and no JVD Resp Resp Narrative: Patient is tachypneic with accessory muscle use. He is speaking in about 3-4 word sentences. Auscultation: rhonchi lower bilaterally and wheezes expiratory wheezes Cardio regular rate, regular rhythm and no murmurs Rate: tachycardic GI normal to inspection, nondistended, normoactive bowel sounds and non-tender Palpation: soft Back/Spine no CVA tenderness and normal ROM Extremity General Extremety ED: Yes edema General Extremity: edema bilateral lower extremity Details: mild Neuro oriented x3 and CN's II-XII intact bilaterally Sensorium / Orientation: alert Motor Exam: strength 5/5 throughout Psych mental status grossly normal Mood & Affect: Negative for depressed or tearful Skin no rashes or lesions noted and no wounds Sepsis Attestation Sepsis Alert: Yes Sepsis Attestation: Agree w/Sepsis Date exam was performed: 04/11/25 Time exam was performed: 08:30 Possible Source of Sepsis: Pulmonary Sepsis Organ Dysfunction Criteria Present: PaO2/FiO2 ratio < 300 Fluid Resuscitation Fluid Resuscitation ordered: Fluids not indicated MDM MDM MDM Narrative Medical decision making narrative: Differential diagnosis includes but not limited to asthma exacerbation pneumonia CHF pleural effusion pulmonary embolism anemia electrolyte abnormalities acute coronary syndrome viral syndrome UTI Patient was given breathing treatments as well as stress dose hydrocortisone. White count returns at 11 platelet count of 219 hemoglobin 10.7. INR 1.1. BMP with a glucose of 97 creatinine 0.83. Lactic acid 1.9. LFTs within normal limits initial troponin is 12 proBNP 187. Urinalysis is negative valproic acid is 51. EKG is a sinus tach. My independent interpretation of the chest x-ray is right-sided infiltrate/consolidation. Blood and urine cultures were obtained. Legionella and strep pneumonia antigens are negative. In addition to the breathing treatments and hydrocortisone the patient also received cefepime and azithromycin. Due to the patient's pneumonia which may be related to aspiration though without a definitive history of vomiting that is difficult to fully elucidate out I do feel the patient would benefit from inpatient care. Patient is currently on Airvo. I see from review of his records he does have a history of prior aspiration. Nursing attempted to give him a drink of water and he coughed significantly. Therefore rectal Tylenol was given. Patients work of breathing is better. I will be discussing with the hospitalist appropriate placement in the hospital. History & Record Review Discussion w/independent historian: EMS personnel, Patient and Other (SNF) Additional record(s) reviewed:: Prior ED visit and Prior labs Lab Data Attestation: I reviewed the patient's lab results. Labs: Laboratory Results - last 24 hr 04/11/25 04/11/25 04/11/25 07:30 07:42 08:11 WBC 11.0 RBC 3.86 L Hgb 10.7 L Hct 33.7 L MCV 87.3 MCH 27.7 MCHC 31.8 L RDW Std Deviation 47.8 H RDW Coeff of Eleanor 15.1 H Plt Count 219 MPV 10.1 Immature Gran % (Auto) 0.500 Neut % (Auto) 91.6 H Lymph % (Auto) 3.4 L [place] % (Auto) 3.2 Eos % (Auto) 0.9 Baso % (Auto) 0.4 Absolute Neuts (auto) 10.1 H Absolute Lymphs (auto) 0.38 L Nucleated RBC % 0 PT 14.2 INR 1.1 APTT 26.6 Sodium 135 Potassium 4.1 Chloride 92 L Carbon Dioxide 30.9 Anion Gap 12 BUN 7 Creatinine 0.83 Estim Creat Clear Calc 115.84 Est GFR (MDRD) Non-Af 104 BUN/Creatinine Ratio 8.0 L Glucose 97 Lactic Acid 1.9 Calcium 9.0 Total Bilirubin 0.39 Direct Bilirubin < 0.08 AST 33 ALT 10 Alkaline Phosphatase 62 Troponin T High Sens 12 D NT pro BNP II 187 Total Protein 6.4 Albumin 3.4 L Globulin 3.1 Lipase 13 Urine Color Yellow Urine Clarity Clear Urine pH 6.0 Ur Specific Plummer 1.020 Urine Protein 15 H Urine Glucose (UA) Normal Urine Ketones Negative Urine Occult Blood Negative Urine Nitrite Negative Urine Bilirubin Negative Urine Urobilinogen Normal Ur Leukocyte Esterase Negative Urine RBC 0 SEEN Urine WBC 0 SEEN Ur Squamous Epith Cells 0-5 SEEN Urine Bacteria 0 SEEN Urine Mucus 0 SEEN Valproic Acid 51 Radiography Diagnostic Testing: Clinical Impression(s) from Imaging Studies Chest X-Ray 04/11/25 07:50 IMPRESSION: Airspace disease including acinar opacities; this has worsened. Acinar opacities represent alveolar filling with mucous, pus or fluid. Infectious causes include infectious etiologies such as mycobacteria such as BRADY/MAC and fungal infection like coccidioidomycosis. Reading Location: [facility] EKG Initial EKG: Attestation: I personally reviewed and interpreted this EKG as follows: Comments: Sinus tachycardia ventricular rate of 134 bpm Prior EKG tracings: available for review Prior: Unchanged Management Discussion w/another healthcare provider: Hospitalist, Eap Consultant (Dr. Alvarado (pulmonary MICU)) and Pharmacist Discharge Plan Dx/Rx/DC Orders Clinical Impression: Pneumonia, Acute hypoxemic respiratory failure, Adrenal insufficiency, primary, Schizoaffective disorder Disposition Disposition: Acute Care Hospital [facility]
[2025-04-11] MEDS: Albuterol 2.5 MG/3 ML VIAL.NEB. INHALATION ×3 (07:41→08:59)
--- NOTE | 2025-04-11 07:50 | RAD_ITS ---
PROCEDURE: CHEST 1 VIEW (PORTABLE) 04/11/2025 REASON FOR EXAM: DYSPNEA TECHNIQUE: Frontal view of the chest. COMPARISON: January 13, 2025 FINDINGS: Hardware: EKG leads are present Heart: Normal Lungs: Subtle acinar opacities in the lingula and lower lobe. Acinar opacities in the inferior right upper lobe. Consolidation in the inferior right upper lobe and right middle lobe or superior segment right lower lobe; this has worsened. Bones: The bones are unremarkable. RAD/Chest 1 View (Portable) IMPRESSION: Airspace disease including acinar opacities; this has worsened. Acinar opaciti es represent alveolar filling with mucous, pus or fluid. Infectious causes include infectious etiologies such as mycobacteria palmer ch as BRADY/MAC and fungal infection like coccidioidomycosis. Reading Location: [id number]
[2025-04-11 07:51] LABS: Hematocrit 33.7 % (40-54); Hemoglobin 10.7 g/dL (13.0-16.5); Immature Granulocytes Count 0.060 X10^3/uL (0.0-0.0); Mean Corp Hgb Conc 31.8 g/dL (32-36); Mean Corpuscular Volume 87.3 fL (80-94); Mean Platelet Vol. 10.1 fl (6.2-12.0); NRBC Flagged by Analyzer 0 % (0-5); POSITIVE DIFFERENTIAL YES; Platelet Count 219 K/mm3 (150-450); RBC Distribution Width CV 15.1 % (11.6-14.6); RBC Distribution Width SD 47.8 fl (35.1-43.9); Red Blood Count 3.86 M/mm3 (4.6-6.2); White Blood Count 11.0 K/mm3 (4.4-11.0)
--- NOTE | 2025-04-11 07:57 | ED.RN ---
This RN spoke with sister Courtney and gave consent to treat
[2025-04-11 08:18] LABS: Mucous, Urine 0 SEEN /hpf (<or=2+); Red Blood Cells-Urine 0 SEEN /hpf (0-5)
[2025-04-11 08:19] LABS: Color, Urine Yellow (Yellow); Glucose, Dipstick Normal (Normal); Ketone-Dipstick Negative (Negative); Leukocyte Esterase-Dipstick Negative /ul (Negative); Nitrite-Dipstick Negative (Negative); Occult Blood-Urine Negative /ul (Negative); Protein-Dipstick 15 mg/dl (Negative); Specific Gravity, Urine 1.020 (1.002-1.030); Urine Bilirubin Dipstick Negative (Negative)
[2025-04-11 08:24] LABS: Prothrombin Time (Protime)PT. 14.2 SECONDS (11.7-14.9)
[2025-04-11 08:25] LABS: Partial Thromboplast Time 26.6 Seconds (24.1-36.2)
[2025-04-11 08:28] LABS: Squamous Epithelial Cells - UA 0-5 SEEN /hpf (0-5)
[2025-04-11 08:32] LABS: Lipase 13 U/L (13-75)
[2025-04-11 08:34] LABS: AST(SGOT) 33 U/L (<=37); Alanine Aminotransfer ALT/SGPT 10 U/L (<=46); Albumin, Serum 3.4 g/dL (3.5-5.0); Alkaline Phosphatase 62 U/L (40-129); Anion Gap 12 (5-15); BUN 7 mg/dL (4-19); BUN/Creat Ratio 8.0 RATIO (10-20); Bilirubin, Direct < 0.08 mg/dL (0.00-0.30); Calcium,Total 9.0 mg/dL (7.6-11.0); Carbon Dioxide 30.9 mmol/L (21.0-32.0); Chloride 92 mmol/L (98-108); Estimated Creatinine Clearance 115.84 ml/min (50-250); Globulin 3.1 g/dL (2.2-4.2); Glucose 97 mg/dL (70-99); Potassium 4.1 mmol/L (3.3-5.1); Pro- Brain NATRIURETIC PEPTIDE 187 pg/mL (<=900); Troponin T High Sensitivity 12 ng/L (<=22)
[2025-04-11 08:35] LABS: Valproic Acid (Depakene) Level 51 ug/mL (50-100)
[2025-04-11] MEDS: Azithromycin 500 MG in 0.9% Normal Saline (250mL Bag) 250 ML 250 MG IV (08:40)
--- NOTE | 2025-04-11 08:57 | NURSING ---
gave pt sip of water and he immedicately coughed and hacked Dr Torres notified, requested rectal tyenol.
--- NOTE | 2025-04-11 09:11 | HP.PCM.HOS_ITS ---
HPI - General General Date of Admission: 04/11/25 Date of Service: 04/11/25 Chief Complaint: Shortness of breath HPI Narrative TEGAN FUENTES, is a 55 M with learning disability resident at the [facility] who was brought into the emergency department with shortness of breath. Patient not a reliable historian. His response to every question was I may have that. Patient was apparently reported to be hypoxic with oxygen saturation in the 70s. He had apparently had bouts of emesis. Imaging studies obtained in the ED did show Airspace disease including acinar opacities; this has worsened. Acinar opacities represent alveolar filling with mucous, pus or fluid. An assessment of sepsis secondary to suspected aspiration pneumonia. Patient placed on noninvasive ventilation admitted to a monitored bed for further management [facility] Medical History (Updated 04/11/25 @ 11:[address] Cayetano Manzo MD) Pneumonia Esophageal obstruction Kidney disease Schizophrenia Depression Anxiety Open wound Abrasion Arthritis History of renal disease Dietary restriction Difficulty swallowing History of diverticulitis Heartburn Gastric reflux Non-smoker Aspiration pneumonia MRSA (methicillin resistant staph aureus) culture positive Acidosis, lactic GURJIT (acute kidney injury) Morbid obesity with BMI of 40.0-44.9, adult Intermittent explosive disorder Schizoaffective disorder Acute metabolic encephalopathy COPD (chronic obstructive pulmonary disease) Hypoxia Pneumonia Bradycardia Chronic anal fissure Cellulitis Adrenocortical insufficiency Anemia Schizo affective schizophrenia Legally blind Intermittent explosive disorder COPD (chronic obstructive pulmonary disease) Hypertension Asthma Gastroparesis Cyclical vomiting Thrombocythemia Hypocalcemia Anxiety Home Medications Medication Instructions Recorded Last Taken Type albuterol sulfate 0.63 mg/3 mL 0.63 mg inhalation Q4H PRN 06/04/22 Unknown History solution for nebulization Shortness Of Breath benztropine 1 mg tablet 1 mg PO BID 06/04/2207/23/2 3 History cyanocobalamin (vitamin B-12) 1,000 mcg PO WE SUPPLEME NT 06/04/22 07/24/22 08:00 History 1,000 mcg tablet escitalopram oxalate 10 mg tablet 10 mg PO BID MENTAL HEALTH 06/04/22 07/24/22 08:00 History (Lexapro) fludrocortisone 0.1 mg tablet 0.1 mg PO DAILY 06/04/22 07/24/22 08:00 History fluticasone propionate 50 1 spray intranasal DAILY ALL ERGIES 06/04/22 07/24/22 08:00 History mcg/actuation nasal spray,suspension (Flonase Allergy Relief) iloperidone 12 mg tablet (Fanapt) 12 mg PO DAILY MENTA L HEALTH 06/04/22 07/23/22 History iloperidone 6 mg tablet (Fanapt) 6 mg PO DAILY MENTAL HEALTH 06/04/22 07/24/22 08:00 History quetiapine 300 mg tablet,extended 600 mg PO QHS MENTAL HEALTH 06/04/22 07/23/22 History release 24 hr (Seroquel XR) aluminum-mag hydroxide-simethicone 30 ml PO Q4H PRN He artburn 07/24/22 Unknown History 200 mg-200 mg-20 mg/5 mL oral susp aspirin 81 mg tablet,delayed 81 mg PO DAILY HEART HEAL TH 07/24/22 07/24/22 08:00 History release cholecalciferol (vitamin D3) 50 50 mcg PO DAILY SUPPLE MENT 07/24/22 07/24/22 08:00 History mcg (2,000 unit) tablet (Vitamin D3) loperamide 2 mg capsule 2 mg PO Q4H PRN STOOL 07/24/22 09:30 History magnesium hydroxide 400 mg/5 mL 30 ml PO Q24H PRN Cons tipation 07/24/22 Unknown History oral suspension (Milk of Magnesia) propranolol 80 mg capsule,24 80 mg PO DAILY BLOOD PRES SURE 07/24/22 07/24/22 08:00 History hr,extended release L.acidophil-L.casei-B.bifid-B.longum-FOS 1 cap PO BAILEY Y supplement 06/24/24 Unknown History 2 billion cell-50 mg capsule (Probiotic Blend) divalproex 125 mg capsule,delayed 250 mg PO Q8H schizo 06/24/24 Unknown History release sprinkle folic acid 400 mcg tablet 1 mg PO DAILY supplement Unknown History hydrocortisone 5 mg tablet 15 mg PO DAILY adrenal 06/09 12/01 Unknown History insufficiency lisinopril 20 mg tablet 20 mg PO DAILY blood pressur e 06/24/24 Unknown History pantoprazole 40 mg tablet,delayed 40 mg PO DAILY 06/24 Unknown History release hydralazine 10 mg tablet 10 mg PO TID blood pressure 07/16/24 Unknown History lorazepam 2 mg tablet (Ativan) 2 mg PO Q6H PRN Agitati on #6 tabs 07/20/24 Unknown Rx hydrochlorothiazide 25 mg tablet 25 mg PO DAILY diuret ic 08/17/24 Unknown History lorazepam 2 mg/mL injection syringe 2 mg IM Q6H PRN ag itation 08/17/24 Unknown History potassium chloride 10 mEq 30 meq PO DAILY 08/17/24 Unk nown History capsule,extended release acetaminophen 325 mg tablet 650 mg PO Q4H PRN fever or pain 10/11/24 Unknown History (Tylenol) docusate sodium 100 mg capsule 100 mg PO BID stool sof t 11/18/24 Unknown History (Colace) ergocalciferol (vitamin D2) 1,250 1,250 mcg PO QWEEK s uppl 11/18/24 Unknown History mcg (50,000 unit) capsule polyethylene glycol 3350 17 17 g PO DAILY 11/18/24 Unk nown History gram/dose oral powder (ClearLax) calcium carbonate 500 mg PO TID SUPPLEMENT 30 days 11/23/24 07/24/22 08:00 Rx #90 tabs ferrous sulfate 325 mg (65 mg 325 mg PO QODAY SUPPLEME NT 30 days 11/23/24 07/24/22 08:00 Rx iron) tablet (FeroSul) #0 tabs prednisone 20 mg tablet 60 mg (3 x 20 mg) PO DAILY 5 days 01/13/25 Unknown Rx #15 TABLETS Allergy/AdvReac Type Severity Reaction Status Date / Time acetic acid Allergy PT UNABLE Verified 04/11/25 07:22 TO RESPOND-NEEDS F/U nut - unspecified (nuts) Allergy PT UNABLE Verified 04/11/25 07:22 TO RESPOND-NEEDS F/U Penicillins Allergy PT UNABLE Verified 04/11/25 11:20 TO RESPOND-NEEDS F/U risperidone Allergy PT UNABLE Verified 04/11/25 07:22 TO RESPOND-NEEDS F/U Family History Father COPD (chronic obstructive pulmonary disease) Mother Hypertension Surgical History History of eye surgery S/P repair of hydrocele Social History housing: other details: Nursing facility with psychiatric focus. Smoking Status: Never smoker alcohol intake: never substance use type: does not use ROS ROS Narrative Unreliable – Patient's response to every question asked is" I may have to every" Vital Signs Vital Signs Vital Signs: 04/11/25 07:14 04/11/25 07:19 04/11/25 07:27 Temperature 100.4 F H 102 F H Temperature Source Axillary Axillary Pulse Rate 134 H 128 H Respiratory Rate 30 H 21 H Respiratory Effort Respiratory Pattern Blood Pressure 119/100 H Blood Pressure Mean 106 Pulse Ox 85 97 Oxygen Delivery Method Non-Rebreather Non-Rebreather Non-Rebreather Oxygen Flow Rate (L/min) 15 Fraction of Inspired Oxygen (FIO2) 04/11/25 07:30 04/11/25 07:30 04/11/25 07:33 Temperature Temperature Source Pulse Rate 125 H Respiratory Rate 25 H Respiratory Effort Short of Breath Respiratory Pattern Tachypnea Blood Pressure Blood Pressure Mean Pulse Ox 93 Oxygen Delivery Method Non-Rebreather Non-Rebreather Oxygen Flow Rate (L/min) 15 Fraction of Inspired Oxygen (FIO2) 100 04/11/25 08:05 04/11/25 08:10 04/11/25 08:19 Temperature 102.5 F H Temperature Source Oral Pulse Rate 124 H Respiratory Rate 19 H Respiratory Effort Respiratory Pattern Blood Pressure 113/64 Blood Pressure Mean 80 Pulse Ox 100 94 93 Oxygen Delivery Method Non-Rebreather Venturi Mask Oxygen Flow Rate (L/min) 15 12 Fraction of Inspired Oxygen (FIO2) 100 50 50 04/11/25 08:55 04/11/25 08:55 04/11/25 08:55 Temperature Temperature Source
--- NOTE | 2025-04-11 09:11 | PCM.HP.STD ---
HPI - General General Date of Admission: 04/11/25 Date of Service: 04/11/25 Chief Complaint: Shortness of breath HPI Narrative TEGAN FUENTES, is a 55 M with learning disability resident at the [facility] who was brought into the emergency department with shortness of breath. Patient not a reliable historian. His response to every question was I may have that. Patient was apparently reported to be hypoxic with oxygen saturation in the 70s. He had apparently had bouts of emesis. Imaging studies obtained in the ED did show Airspace disease including acinar opacities; this has worsened. Acinar opacities represent alveolar filling with mucous, pus or fluid. An assessment of sepsis secondary to suspected aspiration pneumonia. Patient placed on noninvasive ventilation admitted to a monitored bed for further management [facility] Medical History (Updated 04/11/25 @ 11:[address] Cayetano Manzo MD) Pneumonia Esophageal obstruction Kidney disease Schizophrenia Depression Anxiety Open wound Abrasion Arthritis History of renal disease Dietary restriction Difficulty swallowing History of diverticulitis Heartburn Gastric reflux Non-smoker Aspiration pneumonia MRSA (methicillin resistant staph aureus) culture positive Acidosis, lactic GURJIT (acute kidney injury) Morbid obesity with BMI of 40.0-44.9, adult Intermittent explosive disorder Schizoaffective disorder Acute metabolic encephalopathy COPD (chronic obstructive pulmonary disease) Hypoxia Pneumonia Bradycardia Chronic anal fissure Cellulitis Adrenocortical insufficiency Anemia Schizo affective schizophrenia Legally blind Intermittent explosive disorder COPD (chronic obstructive pulmonary disease) Hypertension Asthma Gastroparesis Cyclical vomiting Thrombocythemia Hypocalcemia Anxiety Home Medications Medication Instructions Recorded Last Taken Type albuterol sulfate 0.63 mg/3 mL 0.63 mg inhalation Q4H PRN 06/04/22 Unknown History solution for nebulization Shortness Of Breath benztropine 1 mg tablet 1 mg PO BID 06/04/22 07/23/22 History cyanocobalamin (vitamin B-12) 1,000 mcg PO WE SUPPLEMENT 06/04/22 07/24/22 08:00 History 1,000 mcg tablet escitalopram oxalate 10 mg tablet 10 mg PO BID MENTAL HEALTH 06/04/22 07/24/22 08:00 History (Lexapro) fludrocortisone 0.1 mg tablet 0.1 mg PO DAILY 06/04/22 07/24/22 08:00 History fluticasone propionate 50 1 spray intranasal DAILY ALLERGIES 06/04/22 07/24/22 08:00 History mcg/actuation nasal spray,suspension (Flonase Allergy Relief) iloperidone 12 mg tablet (Fanapt) 12 mg PO DAILY MENTAL HEALTH 06/04/22 07/23/22 History iloperidone 6 mg tablet (Fanapt) 6 mg PO DAILY MENTAL HEALTH 06/04/22 07/24/22 08:00 History quetiapine 300 mg tablet,extended 600 mg PO QHS MENTAL HEALTH 06/04/22 07/23/22 History release 24 hr (Seroquel XR) aluminum-mag hydroxide-simethicone 30 ml PO Q4H PRN Heartburn 07/24/22 Unknown History 200 mg-200 mg-20 mg/5 mL oral susp aspirin 81 mg tablet,delayed 81 mg PO DAILY HEART HEALTH 07/24/22 07/24/22 08:00 History release cholecalciferol (vitamin D3) 50 50 mcg PO DAILY SUPPLEMENT 07/24/22 07/24/22 08:00 History mcg (2,000 unit) tablet (Vitamin D3) loperamide 2 mg capsule 2 mg PO Q4H PRN STOOL 07/24/22 07/24/22 09:30 History magnesium hydroxide 400 mg/5 mL 30 ml PO Q24H PRN Constipation 07/24/22 Unknown History oral suspension (Milk of Magnesia) propranolol 80 mg capsule,24 80 mg PO DAILY BLOOD PRESSURE 07/24/22 07/24/22 08:00 History hr,extended release L.acidophil-L.casei-B.bifid-B.longum-FOS 1 cap PO DAILY supplement 06/24/24 Unknown History 2 billion cell-50 mg capsule (Probiotic Blend) divalproex 125 mg capsule,delayed 250 mg PO Q8H schizo 06/24/24 Unknown History release sprinkle folic acid 400 mcg tablet 1 mg PO DAILY supplement 06/24/24 Unknown History hydrocortisone 5 mg tablet 15 mg PO DAILY adrenal 06/24/24 Unknown History insufficiency lisinopril 20 mg tablet 20 mg PO DAILY blood pressure 06/24/24 Unknown History pantoprazole 40 mg tablet,delayed 40 mg PO DAILY 06/24/24 Unknown History release hydralazine 10 mg tablet 10 mg PO TID blood pressure 07/16/24 Unknown History lorazepam 2 mg tablet (Ativan) 2 mg PO Q6H PRN Agitation #6 tabs 07/20/24 Unknown Rx hydrochlorothiazide 25 mg tablet 25 mg PO DAILY diuretic 08/17/24 Unknown History lorazepam 2 mg/mL injection syringe 2 mg IM Q6H PRN agitation 08/17/24 Unknown History potassium chloride 10 mEq 30 meq PO DAILY 08/17/24 Unknown History capsule,extended release acetaminophen 325 mg tablet 650 mg PO Q4H PRN fever or pain 10/11/24 Unknown History (Tylenol) docusate sodium 100 mg capsule 100 mg PO BID stool soft 11/18/24 Unknown History (Colace) ergocalciferol (vitamin D2) 1,250 1,250 mcg PO QWEEK suppl 11/18/24 Unknown History mcg (50,000 unit) capsule polyethylene glycol 3350 17 17 g PO DAILY 11/18/24 Unknown History gram/dose oral powder (ClearLax) calcium carbonate 500 mg PO TID SUPPLEMENT 30 days 11/23/24 07/24/22 08:00 Rx #90 tabs ferrous sulfate 325 mg (65 mg 325 mg PO QODAY SUPPLEMENT 30 days 11/23/24 07/24/22 08:00 Rx iron) tablet (FeroSul) #0 tabs prednisone 20 mg tablet 60 mg (3 x 20 mg) PO DAILY 5 days 01/13/25 Unknown Rx #15 TABLETS Allergy/AdvReac Type Severity Reaction Status Date / Time acetic acid Allergy PT UNABLE Verified 04/11/25 07:22 TO RESPOND-NEEDS F/U nut - unspecified (nuts) Allergy PT UNABLE Verified 04/11/25 07:22 TO RESPOND-NEEDS F/U Penicillins Allergy PT UNABLE Verified 04/11/25 11:20 TO RESPOND-NEEDS F/U risperidone Allergy PT UNABLE Verified 04/11/25 07:22 TO RESPOND-NEEDS F/U Family History Father COPD (chronic obstructive pulmonary disease) Mother Hypertension Surgical History History of eye surgery S/P repair of hydrocele Social History housing: other details: Nursing facility with psychiatric focus. Smoking Status: Never smoker alcohol intake: never substance use type: does not use ROS ROS Narrative Unreliable – Patient's response to every question asked is" I may have to every" Vital Signs Vital Signs Vital Signs: 04/11/25 07:14 04/11/25 07:19 04/11/25 07:27 Temperature 100.4 F H 102 F H Temperature Source Axillary Axillary Pulse Rate 134 H 128 H Respiratory Rate 30 H 21 H Respiratory Effort Respiratory Pattern Blood Pressure 119/100 H Blood Pressure Mean 106 Pulse Ox 85 97 Oxygen Delivery Method Non-Rebreather Non-Rebreather Non-Rebreather Oxygen Flow Rate (L/min) 15 Fraction of Inspired Oxygen (FIO2) 04/11/25 07:30 04/11/25 07:30 04/11/25 07:33 Temperature Temperature Source Pulse Rate 125 H Respiratory Rate 25 H Respiratory Effort Short of Breath Respiratory Pattern Tachypnea Blood Pressure Blood Pressure Mean Pulse Ox 93 Oxygen Delivery Method Non-Rebreather Non-Rebreather Oxygen Flow Rate (L/min) 15 Fraction of Inspired Oxygen (FIO2) 100 04/11/25 08:05 04/11/25 08:10 04/11/25 08:19 Temperature 102.5 F H Temperature Source Oral Pulse Rate 124 H Respiratory Rate 19 H Respiratory Effort Respiratory Pattern Blood Pressure 113/64 Blood Pressure Mean 80 Pulse Ox 100 94 93 Oxygen Delivery Method Non-Rebreather Venturi Mask Oxygen Flow Rate (L/min) 15 12 Fraction of Inspired Oxygen (FIO2) 100 50 50 04/11/25 08:55 04/11/25 08:55 04/11/25 08:55 Temperature Temperature Source Pulse Rate 117 H Respiratory Rate 20 H Respiratory Effort Respiratory Pattern Blood Pressure Blood Pressure Mean Pulse Ox 89 Oxygen Delivery Method Venturi Mask Oxygen Flow Rate (L/min) 12 Fraction of Inspired Oxygen (FIO2) 50 55 04/11/25 09:03 Temperature Temperature Source Pulse Rate Respiratory Rate Respiratory Effort Respiratory Pattern Blood Pressure Blood Pressure Mean Pulse Ox Oxygen Delivery Method Oxygen Flow Rate (L/min) Fraction of Inspired Oxygen (FIO2) 74 Weight Weight: 114.8 kg Body Mass Index (BMI) 43.4 Physical Exam Narrative GENERAL: Dyspneic at rest, on Airvo HEENT: Atraumatic; normocephalic EYES; Anicteric, Normal Conjunctiva NECK; supple, normal thyroid, RESPIRATORY: Diminished to auscultation CARDIOVASCULAR: Regular S1 S2, tachycardic GI: soft, normoactive bowel sounds, : No Renal angle tenderness; EXTREMITIES: No edema, no clubbing, MUSCULOSKELETAL: no muscle wasting NEURO: Awake; no lateralizing signs. SKIN: No Rash PSYCH; Flat affect Results Lab / Micro Data 04/11/25 07:30 04/11/25 07:30 Labs: Laboratory Results - last 24 hr 04/11/25 07:30: WBC 11.0, RBC 3.86 L, Hgb 10.7 L, Hct 33.7 L, MCV 87.3, MCH 27.7, MCHC 31.8 L, RDW Std Deviation 47.8 H, RDW Coeff of Eleanor 15.1 H, Plt Count 219, MPV 10.1, Immature Gran % (Auto) 0.500, Neut % (Auto) 91.6 H, Lymph % (Auto) 3.4 L, [place] % (Auto) 3.2, Eos % (Auto) 0.9, Baso % (Auto) 0.4, Absolute Neuts (auto) 10.1 H, Absolute Lymphs (auto) 0.38 L, Nucleated RBC % 0, Sodium 135, Potassium 4.1, Chloride 92 L, Carbon Dioxide 30.9, Anion Gap 12, BUN 7, Creatinine 0.83, Estim Creat Clear Calc 115.84, Est GFR (MDRD) Non-Af 104, BUN/Creatinine Ratio 8.0 L, Glucose 97, Calcium 9.0, Total Bilirubin 0.39, Direct Bilirubin < 0.08, AST 33, ALT 10, Alkaline Phosphatase 62, Troponin T High Sens 12 D, NT pro BNP II 187, Total Protein 6.4, Albumin 3.4 L, Globulin 3.1, Lipase 13 04/11/25 07:42: PT 14.2, INR 1.1, APTT 26.6, Lactic Acid 1.9, Valproic Acid 51 04/11/25 08:11: Urine Color Yellow, Urine Clarity Clear, Urine pH 6.0, Ur Specific [place] 1.020, Urine Protein 15 H, Urine Glucose (UA) Normal, Urine Ketones Negative, Urine Occult Blood Negative, Urine Nitrite Negative, Urine Bilirubin Negative, Urine Urobilinogen Normal, Ur Leukocyte Esterase Negative, Urine RBC 0 SEEN, Urine WBC 0 SEEN, Ur Squamous Epith Cells 0-5 SEEN, Urine Bacteria 0 SEEN, Urine Mucus 0 SEEN Micro: Microbiology 04/11/25 08:12 Mucosa - Nose SARS-CoV-2, Influenza & RSV (PCR) - Final 04/11/25 08:11 Urine Catheter - Catheter Legionella Antigen - Final 04/11/25 08:11 Urine Catheter - Catheter Streptococcus pneumoniae Antigen (M - Final Imaging Radiology Impression Chest X-Ray 04/11/25 07:50 IMPRESSION: Airspace disease including acinar opacities; this has worsened. Acinar opacities represent alveolar filling with mucous, pus or fluid. Infectious causes include infectious etiologies such as mycobacteria such as BRADY/MAC and fungal infection like coccidioidomycosis. Reading Location: [id number] Assessment & Plan Assessment/Plan (1) Pneumonia: (2) Acute hypoxemic respiratory failure: (3) Severe sepsis: PLAN: Plan Patient is a 55-year-old gentleman with history of learning disability resident at a [facility] who was brought in with shortness of breath following bouts of emesis 1. Sepsis – Secondary to suspected aspiration pneumonia patient had evidence of SIRS criteria with evidence of endorgan dysfunction–respiratory failure. Treatment initiated per protocol with IV fluid resuscitation cultures including blood sent. Patient started on broad-spectrum antibiotic therapy. Response to therapy being monitored with vitals as well as serial lactic acid levels 2. Acute hypoxic respiratory failure – Secondary to suspected aspiration pneumonia imaging studies obtained on admission did show Airspace disease including acinar opacities; this has worsened. Acinar opacities represent alveolar filling with mucous, pus or fluid. Patient placed on noninvasive ventilation–Airvo admitted to the intensive care unit consult was placed to synchronous motor assembler/pulmonary care from the ED 3. Suspected aspiration pneumonia – Imaging studies did show Airspace disease including acinar opacities; this has worsened. Acinar opacities represent alveolar filling with mucous, pus or fluid. Initial evaluation with viral respiratory panel, COVID assay, sputum and blood cultures sent. Patient placed on broad-spectrum antibiotic therapy with cefepime as well as azithromycin 4. Adrenal insufficiency – Patient did receive stress dose of hydrocortisone from the ED. Patient is on fludrocortisone as well as hydrocortisone daily–continue home dose 5. Essential hypertension – Holding patient antihypertensives given her presentation. Plan is to resume once patient blood pressure stabilizes 6. Schizoaffective disorder – Did continue patient home meds except for Fanapt again (hospital does not carry) 7. COPD/asthma – Currently not in exacerbation Jennifer treatment as needed 8. Anemia – Secondary to chronic disorder monitoring H&H and transfuse if patient becomes symptomatic or hemoglobin falls below 7 9. DVT prophylaxis – Subcu enoxaparin Time spent in the patient's overall evaluation,decision-making process, review of diagnostic data, adjustment of management, discussion with other providers, nursing nursing and ancillary staff involved in patient's care documentation, 78 Minutes Sepsis Attestation Sepsis Attestation: Agree w/Sepsis Date exam was performed: 04/11/25 Time exam was performed: 09:12 Possible Source of Sepsis: Pulmonary Sepsis Organ Dysfunction Criteria Present: Acute Respiratory Failure (New need for BiPAP/CPAP or MV) Fluid Resuscitation Fluid resuscitation indicated?: Yes Fluid Resuscitation ordered: 30 ml/kg fluid bolus ordered Amount of fluid ordered: 3,450 Sepsis Note Date exam was performed: 04/11/25 Time exam was performed: 11:51 Sepsis Attestation: Sepsis re-evaluation was performed Response to fluids: Fluid responsive hypotension Charges/Coding Visit Charges Inpatient E&M: 76767 Init Hosp L3
--- NOTE | 2025-04-11 09:30 | CASEMGMT ---
Social Work Pt is here from [facility]. SW/CM will follow up w/pt's guardian/sister Courtney to check the plan will be for pt to return to [facility] when ready. FABIAN Panda
--- NOTE | 2025-04-11 09:40 | ED.RN ---
REport called to Tammi CORBETT in ICU.
[2025-04-11] MEDS: Cefepime HCl 2 GM in 0.9% Normal Saline (100mL MB+) 100 ML IV ×3 (10:32→20:33)
[2025-04-11] MEDS: 0.9% Normal Saline (1000mL) 1,000 ML 200 ML IV (10:36)
--- NOTE | 2025-04-11 10:55 | CASEMGMT ---
Social Work SW received a call from ICU regarding pt's code status. SW called pt's guardian/sister to verify code status. SW reviewed code status w/pt's sister. She did say she would want pt to be a DNRCC. SW let physician know, he will call her to verify. FABIAN Panda
--- NOTE | 2025-04-11 11:00 | CON.PCM.CC_ITS ---
Assessment & Plan Assessment/Plan (1) Acute hypoxemic respiratory failure: PLAN: Plan RECOMMENDATIONS: IMPRESSIONS: This note was generated with [employer] dictation software. It may contain incorrect words, spelling, and punctuation that were not noted in checking the note before signing. HPI Consult Data Date of Consult: 04/11/25 HPI Narrative Reason for Consultation: Acute hypoxemic respiratory failure HPI Narrative: The patient is a 55-year-old male, with a history as outlined below, who presented from [facility] with worsening shortness of breath and hypoxemia. The patient has a known underlying schizoaffective disorder. Therefore, and unable to obtain significant detailed history from him personally. He indicated to me that he has a prior smoking history, but is interested in trying marijuana. He did report the presence of a cough. He indicated that he does not utilize supplemental oxygen at his baseline. He also has a documented medical history of suspected COPD, adrenal insufficiency and hypertension. On presentation to the emergency department, the patient was noted to be febrile, tachycardic and tachypneic. He was hypoxemic, requiring the initiation of a nonrebreather mask. Laboratory evaluation revealed a white blood cell count of 11,000 with a hemoglobin of 10.7 g/dL and platelet count of 219,000. Coagulation profile was unremarkable. Chemistry profile was unremarkable. Lactate was within normal limits. Urine analysis was unremarkable. Chest x-ray demonstrated significant airspace consolidation of the right middle and lower lobe. The patient was ultimately placed on heated high flow oxygen and administered antimicrobial therapy. He was admitted to the medical intensive care unit for further management. On arrival, I did note that the patient's documentation from his sending facility indicated his CODE STATUS was DNR comfort care. Therefore, I did call and speak with the patient's sister, who indicated that the patient is supposed to be DNR CCA without intubation. Therefore, the patient's CODE STATUS was updated accordingly. [facility] Medical History Esophageal obstruction Kidney disease Schizophrenia Depression Anxiety Open wound Abrasion Arthritis History of renal disease Dietary restriction Difficulty swallowing History of diverticulitis Heartburn Gastric reflux Non-smoker Aspiration pneumonia MRSA (methicillin resistant staph aureus) culture positive Acidosis, lactic GURJIT (acute kidney injury) Morbid obesity with BMI of 40.0-44.9, adult Intermittent explosive disorder Schizoaffective disorder Acute metabolic encephalopathy COPD (chronic obstructive pulmonary disease) Hypoxia Pneumonia Bradycardia Chronic anal fissure Cellulitis Adrenocortical insufficiency Anemia Schizo affective schizophrenia Legally blind Intermittent explosive disorder COPD (chronic obstructive pulmonary disease) Hypertension Asthma Gastroparesis Cyclical vomiting Thrombocythemia Hypocalcemia Anxiety Home Medications Medication Instructions Recorded Last Taken Type albuterol sulfate 0.63 mg/3 mL 0.63 mg inhalation Q4H PRN 06/04/22 Unknown History solution for nebulization Shortness Of Breath benztropine 1 mg tablet 1 mg PO BID 06/04/22 3 History cyanocobalamin (vitamin B-12) 1,000 mcg PO WE SUPPLEME NT 06/04/22 07/24/22 08:00 History 1,000 mcg tablet escitalopram oxalate 10 mg tablet 10 mg PO BID MENTAL HEALTH 06/04/22 07/24/22 08:00 History (Lexapro) fludrocortisone 0.1 mg tablet 0.1 mg PO DAILY 06/04/22 07/24/22 08:00 History fluticasone propionate 50 1 spray intranasal DAILY ALL ERGIES 06/04/22 07/24/22 08:00 History mcg/actuation nasal spray,suspension (Flonase Allergy Relief) iloperidone 12 mg tablet (Fanapt) 12 mg PO DAILY [facility] 06/04/22 07/23/22 History iloperidone 6 mg tablet (Fanapt) 6 mg PO DAILY MENTAL HEALTH 06/04/22 07/24/22 08:00 History quetiapine 300 mg tablet,extended 600 mg PO QHS [facility] 06/04/22 07/23/22 History release 24 hr (Seroquel XR) aluminum-mag hydroxide-simethicone 30 ml PO Q4H PRN He artburn 07/24/22 Unknown History 200 mg-200 mg-20 mg/5 mL oral susp aspirin 81 mg tablet,delayed 81 mg PO DAILY HEART HEAL TH 07/24/22 07/24/22 08:00 History release cholecalciferol (vitamin D3) 50 50 mcg PO DAILY SUPPLE MENT 07/24/22 07/24/22 08:00 History mcg (2,000 unit) tablet (Vitamin D3) loperamide 2 mg capsule 2 mg PO Q4H PRN STOOL 07/24/22 09:30 History magnesium hydroxide 400 mg/5 mL 30 ml PO Q24H PRN Cons tipation 07/24/22 Unknown History oral suspension (Milk of Magnesia) propranolol 80 mg capsule,24 80 mg PO DAILY BLOOD PRES SURE 07/24/22 07/24/22 08:00 History hr,extended release L.acidophil-L.casei-B.bifid-B.longum-FOS 1 cap PO BAILEY Y supplement 06/24/24 Unknown History 2 billion cell-50 mg capsule (Probiotic Blend) divalproex 125 mg capsule,delayed 250 mg PO Q8H schizo 06/24/24 Unknown History release sprinkle folic acid 400 mcg tablet 1 mg PO DAILY supplement Unknown History hydrocortisone 5 mg tablet 15 mg PO DAILY adrenal 06/09 12/01 Unknown History insufficiency lisinopril 20 mg tablet 20 mg PO DAILY blood pressur e 06/24/24 Unknown History pantoprazole 40 mg tablet,delayed 40 mg PO DAILY 06/24 Unknown History release hydralazine 10 mg tablet 10 mg PO TID blood pressure 07/16/24 Unknown History lorazepam 2 mg tablet (Ativan) 2 mg PO Q6H PRN Agitati on #6 tabs 07/20/24 Unknown Rx hydrochlorothiazide 25 mg tablet 25 mg PO DAILY diuret ic 08/17/24 Unknown History lorazepam 2 mg/mL injection syringe 2 mg IM Q6H PRN ag itation 08/17/24 Unknown History potassium chloride 10 mEq 30 meq PO DAILY 08/17/24 Unk nown History capsule,extended release acetaminophen 325 mg tablet 650 mg PO Q4H PRN fever or pain 10/11/24 Unknown History (Tylenol) docusate sodium 100 mg capsule 100 mg PO BID stool sof t 11/18/24 Unknown History (Colace) ergocalciferol (vitamin D2) 1,250 1,250 mcg PO QWEEK s uppl 11/18/24 Unknown History mcg (50,000 unit) capsule polyethylene glycol 3350 17 17 g PO DAILY 11/18/24 Unk nown History gram/dose oral powder (ClearLax) calcium carbonate 500 mg PO TID SUPPLEMENT 30 days 11/23/24 07/24/22 08:00 Rx #90 tabs ferrous sulfate 325 mg (65 mg 325 mg PO QODAY SUPPLEME NT 30 days 11/23/24 07/24/22 08:00 Rx iron) tablet (FeroSul) #0 tabs prednisone 20 mg tablet 60 mg (3 x 20 mg) PO DAILY 5 days 01/13/25 Unknown Rx #15 TABLETS Allergy/AdvReac Type Severity Reaction Status Date / Time acetic acid Allergy PT UNABLE Verified 04/11/25 07:22 TO RESPOND-NEEDS F/U nut - unspecified (nuts) Allergy PT UNABLE Verified 04/11/25 07:22 TO RESPOND-NEEDS F/U Penicillins Allergy PT UNABLE Verified 04/11/25 07:22 TO RESPOND-NEEDS F/U risperidone Allergy PT UNABLE Verified 04/11/25 07:22 TO RESPOND-NEEDS F/U Family History Father COPD (chronic obstructive pulmonary disease) Mother Hypertension Surgical History History of eye surgery S/P repair of hydrocele Social History housing: other details: Nursing facility with psychiatric focus. Smoking Status: Never smoker alcohol intake: never substance use type: does not use Physical Exam Const alert and no apparent distress General Appearance: cooperative HEENT normocephalic and head/scalp atraumatic Eyes PERRL, EOMs intact bilaterally and conjunctivae normal Neck supple General: trachea midline Chest inspection of chest normal Resp normal respiratory effort and no use of accessory muscles Effort and Inspection: tachypneic Auscultation: diminished lung sounds Cardio S1 normal heart sound and S2 normal heart sound Rate: tachycardic GI normal to inspection, nondistended, normoactive bowel sounds Extremity no clubbing, cyanosis or edema Skin no rashes or lesions noted Neuro CN's II-XII intact bilaterally, moves all extremities and no focal motor deficits Psych Mood & Affect: flat affect Lab / Micro Data 04/11/25 07:30 04/11/25 07:30 Labs: Laboratory Results - last 24 hr 04/11/25 07:30: WBC 11.0, RBC 3.86 L, Hgb 10.7 L, Hct 33.7 L, MCV 87.3, MCH 27.7, MCHC 31.8 L, RDW Std Deviation 47.8 H, RDW Coeff of [place] 15.1 H, Plt Count 219, MPV 10.1, Immature Gran % (Auto) 0.500, Neut % (Auto) 91.6 H, Lymph % (Auto) 3.4 L, [place] % (Auto) 3.2, Eos % (Auto) 0.9, Baso % (Auto) 0.4, Absolute Neuts (auto) 10.1 H, Absolute Lymphs (auto) 0.38 L, Nucleated RBC % 0, Sodium 135, Potassium 4.1, Chloride 92 L, Carbon Dioxide 30.9, Anion Gap 12, BUN 7, Creatinine 0.83, Estim Creat Clear Calc 115.84, Est GFR (MDRD) Non-Af 104, B UN/Creatinine Ratio 8.0 L, Glucose 97, Calcium 9.0, Total Bilirubin 0.39, Direct Bilirubin < 0.08, AST 33, ALT 10, Alkaline Phosphatase 62, Troponin T High Sens 12 D, NT pro BNP II 187, Total Protein 6.4, Albumin 3.4 L, Globulin 3.1, Lipase 13 04/11/25 07:42: PT 14.2, INR 1.1, APTT 26.6, Lactic Acid 1.9, Valproic Acid 51 04/11/25 08:11: Urine Color Yellow, Urine Clarity Clear, Urine pH 6.0, Ur Specific [place] 1.020, Urine Protein 15 H, Urine Glucose (UA) Normal, Urine Ketones Negative, Urine Occult Blood Negative, Urine Nitrite Negative, Urine Bilirubin Negative, Urine Urobilinogen Normal, Ur Leukocyte Esterase Negative, Urine RBC 0 SEEN, Urine WBC 0 SEEN, Ur Squamous Epith Cells 0-5 SEEN, Urine Bacteria 0 SEEN, Urine Mucus 0 SEEN Micro: Microbiology 04/11/25 08:12 Mucosa - Nose SARS-CoV-2, Influenza & RSV (PCR) - Final 04/11/25 08:11 Urine Catheter - Catheter Legionella Antigen - Final 04/11/25 08:11 Urine Catheter - Catheter Streptococcus pneumoniae Antigen (M - Final Imaging Radiology Impression Chest X-Ray 04/11/25 07:50 IMPRESSION: Airspace disease including acinar opacities; this has worsened. Acinar opacities represent alveolar filling with mucous, pus or fluid. Infectious causes include infectious etiologies such as mycobacteria such as BRADY/MAC and fungal infection like coccidioidomycosis. Reading Location: [id number]
[2025-04-11 11:22] LABS: Procalcitonin 0.14 ng/mL (<=0.10)
[2025-04-11] MEDS: 0.9% Normal Saline (1000mL) 1,000 ML 100 ML IV ×2 (13:02→23:58)
[2025-04-11] MEDS: Lactobacillis Acidophilus 1 CAP PO (13:11)
[2025-04-11] MEDS: Fluticasone 0.05% 1 SPRAY NASAL.SRY NASAL (13:12)
[2025-04-11] MEDS: Cholecalciferol (VIT D3) 25 MCG TABLET (1,000 UNITS) 50 MCG PO (13:15)
[2025-04-11] MEDS: Polyethylene Glycol 3350 17 GM PACKET PO (13:16)
[2025-04-11] MEDS: Vancomycin HCl 2,000 MG in 0.9% Normal Saline (500mL Bag) 500 ML 250 MG IV (13:17)
[2025-04-11] MEDS: Divalproex Sodium 125 MG SPRINKLE 250 MG PO ×2 (13:32→20:28)
--- NOTE | 2025-04-11 13:53 | PCM.RX.CS ---
Consult Antibiotic Management Pharmacy has been consulted to manage selected antibiotic: Vancomycin Type of Intervention Type of Consult: New start Suspected Infection Suspected Infection: Pneumonia Labs Labs: Sodium 135 mmol/L (133-145) 04/11/25 07:30 Potassium 4.1 mmol/L (3.3-5.1) 04/11/25 07:30 Chloride 92 mmol/L (98-108) L 04/11/25 07:30 Carbon Dioxide 30.9 mmol/L (21.0-32.0) 04/11/25 07:30 Anion Gap 12 (5-15) 04/11/25 07:30 BUN 7 mg/dL (4-19) 04/11/25 07:30 Creatinine 0.83 mg/dL (0.70-1.20) 04/11/25 07:30 Est GFR (MDRD) Non-Af 104 (>60) 04/11/25 07:30 BUN/Creatinine Ratio 8.0 RATIO (10-20) L 04/11/25 07:30 Glucose 97 mg/dL (70-99) 04/11/25 07:30 Microbiology Microbiology: Microbiology 04/11/25 08:12 Mucosa - Nose SARS-CoV-2, Influenza & RSV (PCR) - Final 04/11/25 08:11 Urine Catheter - Catheter Legionella Antigen - Final 04/11/25 08:11 Urine Catheter - Catheter Streptococcus pneumoniae Antigen (M - Final Pharmacy Plan for Drug Dosing Pharmacy Plan for Drug Dosing: NEW START IV VANCOMYCIN Consulting Physician: Christiano Indication: Pneumonia Goal Trough: 15-20 mg/dL SrCr: 0.83 mg/dL CrCl: 115 mL/min Comments: loading dose of 2000mg given 04/11 @ 1317 Vancomycin Dose: Will start 1500mg Q8 (@2100) and get a trough prior to 4th dose of new regimen per policy. Pending Level: 04/12/25 @ 1230 Pharmacy Service will continue to monitor and adjust dosing as required.
[2025-04-11] MEDS: Calcium (Elemental) 500 MG Tablet PO ×2 (14:38→20:27)
[2025-04-11] MEDS: Vancomycin HCl 1,500 MG in 0.9% Normal Saline (500mL Bag) 500 ML 250 MG IV (20:26)
[2025-04-11] MEDS: 0.9% Saline Lock 10 ML Syringe IV (20:26)
[2025-04-12] VITALS (19 sets, daily range): BP systolic 127–145; BP diastolic 63–83; PULSE 76–97; RESP 17–25; TEMP 36.6–37.1; O2SAT 86–98; BMI 47.0
[2025-04-12 04:46] LABS: Hematocrit 28.5 % (40-54); Hemoglobin 8.7 g/dL (13.0-16.5); Immature Granulocytes Count 0.040 X10^3/uL (0.0-0.0); Mean Corp Hgb Conc 30.5 g/dL (32-36); Mean Corpuscular Volume 89.3 fL (80-94); Mean Platelet Vol. 9.3 fl (6.2-12.0); NRBC Flagged by Analyzer 0 % (0-5); POSITIVE DIFFERENTIAL YES; Platelet Count 174 K/mm3 (150-450); RBC Distribution Width CV 15.0 % (11.6-14.6); RBC Distribution Width SD 49.5 fl (35.1-43.9); Red Blood Count 3.19 M/mm3 (4.6-6.2); White Blood Count 12.0 K/mm3 (4.4-11.0)
[2025-04-12 05:19] LABS: Magnesium 2.1 mg/dL (1.5-2.2)
[2025-04-12 05:21] LABS: Anion Gap 17 (5-15); BUN 23 mg/dL (4-19); BUN/Creat Ratio 23.0 RATIO (10-20); Calcium,Total 9.0 mg/dL (7.6-11.0); Carbon Dioxide 24.4 mmol/L (21.0-32.0); Chloride 98 mmol/L (98-108); Estimated Creatinine Clearance 101.65 ml/min (50-250); Glucose 69 mg/dL (70-99); Potassium 3.8 mmol/L (3.3-5.1)
[2025-04-12] MEDS: Vancomycin HCl 1,500 MG in 0.9% Normal Saline (500mL Bag) 500 ML 250 MG IV (05:24)
[2025-04-12] MEDS: 0.9% Saline Lock 10 ML Syringe IV ×2 (05:25→20:52)
[2025-04-12] MEDS: Cefepime HCl 2 GM in 0.9% Normal Saline (100mL MB+) 100 ML IV ×3 (05:25→21:03)
--- NOTE | 2025-04-12 05:36 | NURSING ---
Glucose noted to be 69 on AM labs. Checked blood sugar on glucometer and it was 95.
[2025-04-12] MEDS: Calcium (Elemental) 500 MG Tablet PO ×3 (05:48→21:38)
[2025-04-12] MEDS: Divalproex Sodium 125 MG SPRINKLE 250 MG PO ×3 (05:48→21:36)
--- NOTE | 2025-04-12 07:13 | PCM.PN.HOSP ---
Reason for Visit Chief Complaint: Shortness of breath Subjective Subjective Patient is a 55-year-old gentleman with history of learning disability resident at a [facility] who was brought in with shortness of breath following bouts of emesis. An assessment of sepsis secondary to suspected aspiration pneumonia made. Admitted to the intensive care unit. Patient did require noninvasive ventilation Airvo and is currently down to nasal cannula 10 L flow per minute. Plan is for patient to be transferred from the intensive care unit to PCU Objective Data Objective Data Vital Signs: Vital Signs Temp Pulse Resp BP Pulse Ox O2 Del Method O2 Flow Rate 98.7 F 85 19 H 133/63 H 98 High Flow 10 04/12/25 05:00 04/12/25 07:00 04/12/25 07:00 04/12/25 07:00 04/12/25 07:00 04/12/25 07:00 04/12/25 07:00 FiO2 55 04/11/25 16:00 Oxygen Flow Rate (L/min) 10 Oxygen Delivery Method High Flow Weight: 124.3 kg Body Mass Index (BMI) 47.0 Intake & Output: Intake and Output for Last 24 Hours 04/10/25 04/11/25 04/12/25 22:59 23:59 23:59 Intake Total 4330 / 4330 100 / 100 Output Total 375 / 375 50 / 50 Balance 3955 / 3955 50 / 50 Lab / Micro Data 04/12/25 04:40 04/12/25 04:40 Labs: Laboratory Results - last 24 hr 04/11/25 07:30: WBC 11.0, RBC 3.86 L, Hgb 10.7 L, Hct 33.7 L, MCV 87.3, MCH 27.7, MCHC 31.8 L, RDW Std Deviation 47.8 H, RDW Coeff of Eleanor 15.1 H, Plt Count 219, MPV 10.1, Immature Gran % (Auto) 0.500, Neut % (Auto) 91.6 H, Lymph % (Auto) 3.4 L, [place] % (Auto) 3.2, Eos % (Auto) 0.9, Baso % (Auto) 0.4, Absolute Neuts (auto) 10.1 H, Absolute Lymphs (auto) 0.38 L, Nucleated RBC % 0, Sodium 135, Potassium 4.1, Chloride 92 L, Carbon Dioxide 30.9, Anion Gap 12, BUN 7, Creatinine 0.83, Estim Creat Clear Calc 115.84, Est GFR (MDRD) Non-Af 104, BUN/Creatinine Ratio 8.0 L, Glucose 97, Calcium 9.0, Total Bilirubin 0.39, Direct Bilirubin < 0.08, AST 33, ALT 10, Alkaline Phosphatase 62, Troponin T High Sens 12 D, NT pro BNP II 187, Total Protein 6.4, Albumin 3.4 L, Globulin 3.1, Lipase 13, Procalcitonin 0.14 H 04/11/25 07:42: PT 14.2, INR 1.1, APTT 26.6, Lactic Acid 1.9, Valproic Acid 51 04/11/25 08:11: Urine Color Yellow, Urine Clarity Clear, Urine pH 6.0, Ur Specific [place] 1.020, Urine Protein 15 H, Urine Glucose (UA) Normal, Urine Ketones Negative, Urine Occult Blood Negative, Urine Nitrite Negative, Urine Bilirubin Negative, Urine Urobilinogen Normal, Ur Leukocyte Esterase Negative, Urine RBC 0 SEEN, Urine WBC 0 SEEN, Ur Squamous Epith Cells 0-5 SEEN, Urine Bacteria 0 SEEN, Urine Mucus 0 SEEN 04/12/25 04:40: WBC 12.0 H, RBC 3.19 L, Hgb 8.7 L, Hct 28.5 L, MCV 89.3, MCH 27.3, MCHC 30.5 L, RDW Std Deviation 49.5 H, RDW Coeff of [place] 15.0 H, Plt Count 174, MPV 9.3, Immature Gran % (Auto) 0.300, Neut % (Auto) 88.9 H, Lymph % (Auto) 3.7 L, [place] % (Auto) 6.6, Eos % (Auto) 0.3, Baso % (Auto) 0.2, Absolute Neuts (auto) 10.7 H, Absolute Lymphs (auto) 0.44 L, Nucleated RBC % 0, Sodium 140, Potassium 3.8, Chloride 98, Carbon Dioxide 24.4, Anion Gap 17 H, BUN 23 H, Creatinine 0.99, Estim Creat Clear Calc 101.65, Est GFR (MDRD) Non-Af 90, BUN/Creatinine Ratio 23.0 H, Glucose 69 L, Calcium 9.0, Phosphorus 3.6, Magnesium 2.1 04/12/25 05:35: POC Glucose 95 Micro: Microbiology 04/11/25 19:33 Mucosa - Nasopharyngeal Coronavirus COVID-19 PCR - Final 04/11/25 08:11 Urine, Random Legionella Antigen - Final 04/11/25 08:11 Urine, Random Streptococcus pneumoniae Antigen (M - Final 04/11/25 12:40 Nasal Secretion MRSA (PCR) - Final Meth. resistant Staph. aureus 04/11/25 11:06 Mucosa - Nasopharyngeal Respiratory Panel (PCR) - Final 04/11/25 08:12 Mucosa - Nose SARS-CoV-2, Influenza & RSV (PCR) - Final 04/11/25 08:11 Urine Catheter - Catheter Legionella Antigen - Final 04/11/25 08:11 Urine Catheter - Catheter Streptococcus pneumoniae Antigen (M - Final Radiography Diagnostic Testing: Radiology Impression Chest X-Ray 04/11/25 07:50 IMPRESSION: Airspace disease including acinar opacities; this has worsened. Acinar opacities represent alveolar filling with mucous, pus or fluid. Infectious causes include infectious etiologies such as mycobacteria such as BRADY/MAC and fungal infection like coccidioidomycosis. Reading Location: [facility] Physical Exam Narrative GENERAL: Dyspneic at rest, on Airvo HEENT: Atraumatic; normocephalic EYES; Anicteric, Normal Conjunctiva NECK; supple, normal thyroid, RESPIRATORY: Diminished to auscultation CARDIOVASCULAR: Regular S1 S2, tachycardic GI: soft, normoactive bowel sounds, : No Renal angle tenderness; EXTREMITIES: No edema, no clubbing, MUSCULOSKELETAL: no muscle wasting NEURO: Awake; no lateralizing signs. SKIN: No Rash PSYCH; Flat affect Assessment & Plan Assessment/Plan (1) Pneumonia: (2) Acute hypoxemic respiratory failure: (3) Severe sepsis: PLAN: Plan Patient is a 55-year-old gentleman with history of learning disability resident at a [facility] who was brought in with shortness of breath following bouts of emesis 1. Sepsis – Secondary to suspected aspiration pneumonia patient had evidence of SIRS criteria with evidence of endorgan dysfunction–respiratory failure. Treatment initiated per protocol with IV fluid resuscitation cultures including blood sent. Patient started on broad-spectrum antibiotic therapy. Response to therapy being monitored with vitals as well as serial lactic acid levels – 04/12/2025; culture still pending. WBC count remains elevated will repeat CBC with differential in AM 2. Acute hypoxic respiratory failure – Secondary to suspected aspiration pneumonia imaging studies obtained on admission did show Airspace disease including acinar opacities; this has worsened. Acinar opacities represent alveolar filling with mucous, pus or fluid. Patient placed on noninvasive ventilation–Airvo admitted to the intensive care unit consult was placed to yard coordinator/pulmonary care from the ED – 04/12/2020 2570 patient did require noninvasive ventilation Airvo and is currently down to nasal cannula 10 L flow per minute. Plan is for patient to be transferred from the intensive care unit to PCU 3. Suspected aspiration pneumonia – Imaging studies did show Airspace disease including acinar opacities; this has worsened. Acinar opacities represent alveolar filling with mucous, pus or fluid. Initial evaluation with viral respiratory panel, COVID assay, sputum and blood cultures sent. Patient placed on broad-spectrum antibiotic therapy with cefepime as well as azithromycin 4. Adrenal insufficiency – Patient did receive stress dose of hydrocortisone from the ED. Patient is on fludrocortisone as well as hydrocortisone daily–continue home dose 5. Essential hypertension – Holding patient antihypertensives given her presentation. Plan is to resume once patient blood pressure stabilizes 6. Schizoaffective disorder – Did continue patient home meds except for Fanapt again (hospital does not carry) 7. COPD/asthma – Currently not in exacerbation Jennifer treatment as needed 8. Anemia – Secondary to chronic disorder monitoring H&H and transfuse if patient becomes symptomatic or hemoglobin falls below 7 – 04/12/2025; patient hemoglobin down to 8.7 we will continue with monitoring repeated H&H in a.m. 9. Class III obesity with BMI of 47 – Complicating care 10. DVT prophylaxis – Subcu enoxaparin Time spent in the patient's overall evaluation,decision-making process, review of diagnostic data, adjustment of management, discussion with other providers, nursing nursing and ancillary staff involved in patient's care documentation, 50 minutes Charges/Coding Visit Charges Inpatient E&M: 81212 Subs Hosp L3
--- NOTE | 2025-04-12 07:32 | PCM.PN.INT ---
Assessment & Plan Assessment/Plan (1) Acute hypoxemic respiratory failure: PLAN: Plan RECOMMENDATIONS: 1. Wean FiO2 to maintain oxygen saturations 88 to 92%. 2. Continue empiric broad-spectrum antimicrobials, pending infectious workup. 3. Continue hydrocortisone per home regimen. 4. Continue bronchodilators. 5. Lovenox for DVT prophylaxis. 6. Encourage incentive spirometer use and mobilize patient as tolerated. IMPRESSIONS: 1. Acute hypoxemic respiratory failure Most likely secondary to severe community-acquired pneumonia. The patient does have a significant consolidative infiltrate in the right middle and lower lobe. He does have a questionable history of COPD of unknown severity. Therefore, it is reasonable to continue bronchodilator therapy along with supplemental oxygen to maintain saturations 88 to 92%. The patient will be maintained on empiric antimicrobials, pending infectious workup. He does have a known history of heart failure with preserved ejection fraction, but appears clinically stable at the present time. 2. History of adrenal insufficiency/hypertension/schizoaffective disorder/anemia Complicates care, management, recovery and prognosis. Continue supportive measures as noted above. CODE STATUS: DNR CCA without intubation (this was confirmed with the patient's sister, Courtney Oates, via telephone) This note was generated with [employer] dictation software. It may contain incorrect words, spelling, and punctuation that were not noted in checking the note before signing. Subjective Subjective The patient was seen and examined at the bedside this morning. Events from the last 24 hours have been reviewed. The patient is currently afebrile, hemodynamically stable and maintaining appropriate oxygen saturations on 10 L/min via nasal cannula. The patient has no specific complaints this morning. He is currently documented to be overall net +4.5 L for the hospitalization. White blood cell count is mildly elevated at 12,000 with a hemoglobin of 8.7 g/dL and platelet count of 174,000. Objective Data Objective Data The patient's most recent lab work, culture data and imaging studies have all been personally reviewed. Surface echocardiogram from April 09 demonstrated stage I diastolic dysfunction with an ejection fraction of 55%. Strep and urine Legionella antigens were negative. Vital Signs: Vital Signs Temp Pulse Resp BP Pulse Ox O2 Del Method O2 Flow Rate 98.7 F 85 19 H 133/63 H 98 High Flow 10 04/12/25 05:00 04/12/25 07:00 04/12/25 07:00 04/12/25 07:00 04/12/25 07:00 04/12/25 07:00 04/12/25 07:00 FiO2 55 04/11/25 16:00 Oxygen Flow Rate (L/min) 10 Oxygen Delivery Method High Flow Weight: 274 lb 0.553 oz Body Mass Index (BMI) 47.0 Intake & Output: Intake and Output for Last 24 Hours 04/10/25 04/11/25 04/12/25 22:59 23:59 23:59 Intake Total 4330 / 4330 100 / 100 Output Total 375 / 375 50 / 50 Balance 3955 / 3955 50 / 50 Lab / Micro Data Attestation: I reviewed the patient's lab results. 04/12/25 04:40 04/12/25 04:40 Labs: Laboratory Results - last 24 hr 04/11/25 07:30: WBC 11.0, RBC 3.86 L, Hgb 10.7 L, Hct 33.7 L, MCV 87.3, MCH 27.7, MCHC 31.8 L, RDW Std Deviation 47.8 H, RDW Coeff of Eleanor 15.1 H, Plt Count 219, MPV 10.1, Immature Gran % (Auto) 0.500, Neut % (Auto) 91.6 H, Lymph % (Auto) 3.4 L, [place] % (Auto) 3.2, Eos % (Auto) 0.9, Baso % (Auto) 0.4, Absolute Neuts (auto) 10.1 H, Absolute Lymphs (auto) 0.38 L, Nucleated RBC % 0, Sodium 135, Potassium 4.1, Chloride 92 L, Carbon Dioxide 30.9, Anion Gap 12, BUN 7, Creatinine 0.83, Estim Creat Clear Calc 115.84, Est GFR (MDRD) Non-Af 104, BUN/Creatinine Ratio 8.0 L, Glucose 97, Calcium 9.0, Total Bilirubin 0.39, Direct Bilirubin < 0.08, AST 33, ALT 10, Alkaline Phosphatase 62, Troponin T High Sens 12 D, NT pro BNP II 187, Total Protein 6.4, Albumin 3.4 L, Globulin 3.1, Lipase 13, Procalcitonin 0.14 H 04/11/25 07:42: PT 14.2, INR 1.1, APTT 26.6, Lactic Acid 1.9, Valproic Acid 51 04/11/25 08:11: Urine Color Yellow, Urine Clarity Clear, Urine pH 6.0, Ur Specific [place] 1.020, Urine Protein 15 H, Urine Glucose (UA) Normal, Urine Ketones Negative, Urine Occult Blood Negative, Urine Nitrite Negative, Urine Bilirubin Negative, Urine Urobilinogen Normal, Ur Leukocyte Esterase Negative, Urine RBC 0 SEEN, Urine WBC 0 SEEN, Ur Squamous Epith Cells 0-5 SEEN, Urine Bacteria 0 SEEN, Urine Mucus 0 SEEN 04/12/25 04:40: WBC 12.0 H, RBC 3.19 L, Hgb 8.7 L, Hct 28.5 L, MCV 89.3, MCH 27.3, MCHC 30.5 L, RDW Std Deviation 49.5 H, RDW Coeff of [place] 15.0 H, Plt Count 174, MPV 9.3, Immature Gran % (Auto) 0.300, Neut % (Auto) 88.9 H, Lymph % (Auto) 3.7 L, [place] % (Auto) 6.6, Eos % (Auto) 0.3, Baso % (Auto) 0.2, Absolute Neuts (auto) 10.7 H, Absolute Lymphs (auto) 0.44 L, Nucleated RBC % 0, Sodium 140, Potassium 3.8, Chloride 98, Carbon Dioxide 24.4, Anion Gap 17 H, BUN 23 H, Creatinine 0.99, Estim Creat Clear Calc 101.65, Est GFR (MDRD) Non-Af 90, BUN/Creatinine Ratio 23.0 H, Glucose 69 L, Calcium 9.0, Phosphorus 3.6, Magnesium 2.1 04/12/25 05:35: POC Glucose 95 Micro: Microbiology 04/11/25 19:33 Mucosa - Nasopharyngeal Coronavirus COVID-19 PCR - Final 04/11/25 08:11 Urine, Random Legionella Antigen - Final 04/11/25 08:11 Urine, Random Streptococcus pneumoniae Antigen (M - Final 04/11/25 12:40 Nasal Secretion MRSA (PCR) - Final Meth. resistant Staph. aureus 04/11/25 11:06 Mucosa - Nasopharyngeal Respiratory Panel (PCR) - Final 04/11/25 08:12 Mucosa - Nose SARS-CoV-2, Influenza & RSV (PCR) - Final 04/11/25 08:11 Urine Catheter - Catheter Legionella Antigen - Final 04/11/25 08:11 Urine Catheter - Catheter Streptococcus pneumoniae Antigen (M - Final Radiography Diagnostic Testing: Radiology Impression Chest X-Ray 04/11/25 07:50 IMPRESSION: Airspace disease including acinar opacities; this has worsened. Acinar opacities represent alveolar filling with mucous, pus or fluid. Infectious causes include infectious etiologies such as mycobacteria such as BRADY/MAC and fungal infection like coccidioidomycosis. Reading Location: [facility] Physical Exam Const alert and no apparent distress Constitutional Narrative: Morbidly obese. Resting comfortably in bed. General Appearance: cooperative HEENT normocephalic and head/scalp atraumatic Eyes PERRL, EOMs intact bilaterally and conjunctivae normal Neck supple General: trachea midline Chest inspection of chest normal Resp normal respiratory effort and no use of accessory muscles Auscultation: diminished lung sounds Cardio regular rate, regular rhythm, S1 normal heart sound and S2 normal heart sound GI normal to inspection, nondistended, normoactive bowel sounds Extremity no clubbing, cyanosis or edema Skin no rashes or lesions noted Neuro CN's II-XII intact bilaterally, moves all extremities and no focal motor deficits Psych Mood & Affect: flat affect Charges/Coding Visit Charges Inpatient E&M: 15186 Subs Hosp L2
--- NOTE | 2025-04-12 09:30 | CASEMGMT ---
Addendum entered by Kandace Avendano 04/12/25 09:42: Social Work Updates sent to [facility] via [employer]. FABIAN Panda Original Note: Social Work SW participated in ICU rounds this morning, pt has orders in to move to PCU. SW called pt's sister/guardian Courtney, confirmed the plan will be for pt to return to [facility] at discharge. SW will send updates to [facility] later today. SW will continue to follow. FABIAN Panda
[2025-04-12] MEDS: Aspirin E.C. 81 MG Tablet PO (10:00)
[2025-04-12] MEDS: Lactobacillis Acidophilus 1 CAP PO (10:00)
[2025-04-12] MEDS: Fluticasone 0.05% 1 SPRAY NASAL.SRY NASAL (10:01)
[2025-04-12] MEDS: Polyethylene Glycol 3350 17 GM PACKET PO (10:03)
[2025-04-12] MEDS: Senna/Docusate Sodium 1 Tablet 2 TABLET PO ×2 (10:05→21:37)
[2025-04-12] MEDS: Cholecalciferol (VIT D3) 25 MCG TABLET (1,000 UNITS) 50 MCG PO (10:05)
[2025-04-12] MEDS: Azithromycin 500 MG in 0.9% Normal Saline (250mL Bag) 250 ML 250 MG IV (10:09)
[2025-04-12 10:30] LABS: BETA-HYDROXYBUTYRATE 0.1 mmol/L (0.0-0.3)
[2025-04-12 11:07] LABS: Vancomycin, Trough Level 23.0 ug/mL (5.0-15.0)
--- NOTE | 2025-04-12 11:46 | CASEMGMT ---
Discharge Planning Updates faxed to [facility]. Fax confirmation rec'd. Jeannette Katz DC Planning Asst.
[2025-04-12 13:16] LABS: Vancomycin, Trough Level 20.8 ug/mL (5.0-15.0)
--- NOTE | 2025-04-12 13:39 | PCM.RX.CS ---
Consult Antibiotic Management Pharmacy has been consulted to manage selected antibiotic: Vancomycin Type of Intervention Type of Consult: Follow-up Suspected Infection Suspected Infection: Pneumonia Labs Labs: Sodium 140 mmol/L (133-145) 04/12/25 04:40 Potassium 3.8 mmol/L (3.3-5.1) 04/12/25 04:40 Chloride 98 mmol/L (98-108) 04/12/25 04:40 Carbon Dioxide 24.4 mmol/L (21.0-32.0) 04/12/25 04:40 Anion Gap 17 (5-15) H 04/12/25 04:40 BUN 23 mg/dL (4-19) H 04/12/25 04:40 Creatinine 0.99 mg/dL (0.70-1.20) 04/12/25 04:40 Est GFR (MDRD) Non-Af 90 (>60) 04/12/25 04:40 BUN/Creatinine Ratio 23.0 RATIO (10-20) H 04/12/25 04:40 Glucose 69 mg/dL (70-99) L 04/12/25 04:40 Vancomycin Trough 20.8 ug/mL (5.0-15.0) H 04/12/25 11:46 Microbiology Microbiology: Microbiology 04/11/25 19:33 Mucosa - Nasopharyngeal Coronavirus COVID-19 PCR - Final 04/11/25 08:11 Urine, Random Legionella Antigen - Final 04/11/25 08:11 Urine, Random Streptococcus pneumoniae Antigen (M - Final 04/11/25 12:40 Nasal Secretion MRSA (PCR) - Final Meth. resistant Staph. aureus 04/11/25 11:06 Mucosa - Nasopharyngeal Respiratory Panel (PCR) - Final 04/11/25 08:12 Mucosa - Nose SARS-CoV-2, Influenza & RSV (PCR) - Final 04/11/25 08:11 Urine Catheter - Catheter Legionella Antigen - Final 04/11/25 08:11 Urine Catheter - Catheter Streptococcus pneumoniae Antigen (M - Final Pharmacy Plan for Drug Dosing Pharmacy Plan for Drug Dosing: VANCOMYCIN LEVEL RECEIVED Current Vancomycin Dose: 1500MG Q8 Number of Doses Received: 3 Vancomycin Level: 20.8 mg/dL Hours Since Last Dose: 6.5 Renal Function: SCr 0.99 mg/dL, CrCl 101 mL/min Renal Function Trend: slight increase in SCr Lab/Micro: blood, urine cx pending. MRSA swab (+) Vancomycin Plan/Comments: 26.5 hour trough is slightly supratherapeutic at 20.8mg/dL. Will decrease dose to 1250mg Q8 (starting 04/12 @ 1500) and get a trough prior to 4th dose of new regimen. Pending Level: 04/13/25 @ 1430 Pharmacy Service will continue to monitor and adjust dosing as required.
[2025-04-12] MEDS: Vancomycin HCl 1,250 MG in 0.9% Normal Saline (250mL Bag) 250 ML 167 MG IV ×2 (15:07→22:58)
--- NOTE | 2025-04-12 15:55 | CHAPLAIN ---
Type of Pastoral Visit ___ Initial Visit ___ Follow-up Visit ___ On-call Visit ___ General Patient Visit ___ Spiritual Assessment ___ Family Conference ___ Bereavement ___ Rapid Response ___ Code Blue ___ Other (describe below) Pastoral Care Referral From ___ Patient ___ Family ___ Nurse ___ Physician ___ Human Resources Administrator ___ [place] Hydraulic Press Operator ___ Other (describe below) Sacrament/Intervention ___ Active listening ___ Anointing ___ Rastafari ___ Bereavement ___ Communion ___ Jennifer exploration ___ ___ Life review ___ Prayer ___ Reconciliation ___ Sacrament of Sick ___ Supportive presence ___ Wedding ___ Other (describe below) Pastoral Comments two attempts made to visit this patient but he was soundly sleeping; pt is sight impaired and thus did not leave a calling card
[2025-04-12] MEDS: 0.9% Normal Saline (250mL Bag) 250 ML 15 ML IV (20:53)
[2025-04-13] VITALS (14 sets, daily range): BP systolic 134–200; BP diastolic 65–90; PULSE 80–118; RESP 18–30; TEMP 36.1–36.8; O2SAT 91–94; BMI 47.8
[2025-04-13] MEDS: 0.9% Saline Lock 10 ML Syringe IV ×3 (05:38→23:33)
[2025-04-13] MEDS: Calcium (Elemental) 500 MG Tablet PO (05:39)
[2025-04-13] MEDS: Divalproex Sodium 125 MG SPRINKLE 250 MG PO ×2 (05:40→14:59)
[2025-04-13] MEDS: Fluticasone 0.05% 1 SPRAY NASAL.SRY NASAL (06:02)
[2025-04-13] MEDS: Cefepime HCl 2 GM in 0.9% Normal Saline (100mL MB+) 100 ML IV ×3 (06:06→22:28)
[2025-04-13 06:20] LABS: Hematocrit 28.2 % (40-54); Hemoglobin 8.6 g/dL (13.0-16.5); Immature Granulocytes Count 0.420 X10^3/uL (0.0-0.0); Mean Corp Hgb Conc 30.5 g/dL (32-36); Mean Corpuscular Volume 90.7 fL (80-94); Mean Platelet Vol. 9.5 fl (6.2-12.0); NRBC Flagged by Analyzer 0 % (0-5); POSITIVE DIFFERENTIAL YES; Platelet Count 171 K/mm3 (150-450); RBC Distribution Width CV 14.8 % (11.6-14.6); RBC Distribution Width SD 49.5 fl (35.1-43.9); Red Blood Count 3.11 M/mm3 (4.6-6.2); White Blood Count 10.1 K/mm3 (4.4-11.0)
[2025-04-13 06:36] LABS: Anion Gap 7 (5-15); BUN 5 mg/dL (4-19); BUN/Creat Ratio 8.3 RATIO (10-20); Calcium,Total 8.9 mg/dL (7.6-11.0); Carbon Dioxide 37.3 mmol/L (21.0-32.0); Chloride 97 mmol/L (98-108); Estimated Creatinine Clearance 156.41 ml/min (50-250); Glucose 141 mg/dL (70-99); Potassium 3.7 mmol/L (3.3-5.1)
[2025-04-13] MEDS: Vancomycin HCl 1,250 MG in 0.9% Normal Saline (250mL Bag) 250 ML 167 MG IV ×3 (06:37→23:31)
--- NOTE | 2025-04-13 08:18 | PN.CC_ITS ---
Objective Data Objective Data Vital Signs: Vital Signs Last response 3 Temperature 36.6 C 04/13/25 05:33 Temperature Source Temporal 04/13/25 05:33 Pulse Rate 100 04/13/25 07:10 Pulse Strength Weak (1+) 04/12/25 22:00 Respiratory Rate 18 04/13/25 07:10 Respiratory Effort Normal, Non-Labored 04/13/25 02:23 Respiratory Depth Normal 04/13/25 02:23 Respiratory Pattern Normal 04/13/25 07:10 Blood Pressure 158/83 H 04/13/25 05:39 Blood Pressure Mean 108 04/13/25 05:33 Blood Pressure Source Monitor 04/13/25 05:33 Blood Pressure Position Semi-Fowlers 04/13/25 05:33 Blood Pressure Location Left Forearm 04/13/25 05:33 Pulse Ox 94 04/13/25 07:10 Oxygen Delivery Method Nasal Cannula 04/13/25 07:10 Oxygen Flow Rate (L/min) 7 04/13/25 07:10 Fraction of Inspired Oxygen (FIO2) 55 04/11/25 16:00 I&O: I&O Last 24 Hours 3 04/12/25 04/12/25 04/13/25 11:59 23:59 11:59 Intake Total 1880 / 3619 1739 / 3619 650 / 650 Output Total 50 / 950 400 / 950 1300 / 1300 Balance 1830 / 2669 1339 / 2669 -650 / -650 I&O: Total Stay 3 04/11/25 07:13 thru 04/13/25 08:17 Intake Total 8599 Output Total 2125 Balance 6474 Current Meds Ordered / Administered: Current meds ordered / Administered 3 Generic Name Dose Route Start Last Admin Trade Name Freq PRN Reason Stop Dose Admin Acetaminophen 650 mg 04/11/25 11:14 04/13/25 00:31 Acetaminophen 325 Mg Tablet PO 650 mg Q6H PRN PRN Administration Pain 1-10 Or Fever>100.7 Acetaminophen 650 mg 04/12/25 08:29 Acetaminophen 325 Mg Tablet PO Q4H PRN fever or pain 1-10 Albuterol Sulfate 2.5 mg 04/11/25 11:14 Albuterol 2.5 Mg/3 Ml Vial.Neb. INHALATION Q2H PRN PRN SOB &/OR WHEEZING Albuterol/Ipratropium 3 ml 04/11/25 11:14 04/13/25 07:09 Ipratropium/Albuterol Sulfate 3 Ml Ampul.Neb INHALATION 3 ml Q6H.RT BRIANA Administration Amlodipine Besylate 5 mg 04/12/25 10:00 04/12/25 10:05 Amlodipine 5 Mg Tablet PO 5 mg DAILY BRIANA Administration Protocol Aspirin 81 mg 04/12/25 08:00 04/12/25 10:00 Aspirin E.C. 81 Mg Tablet PO 81 mg BREAKFAST BRIANA Administration Benztropine Mesylate 1 mg 04/11/25 10:00 04/12/25 21:38 Benztropine 2 Mg Tablet PO 1 mg BID BRIANA Administration Calcium Carbonate 500 mg 04/11/25 14:00 04/13/25 05:39 Calcium (Elemental) 500 Mg Tablet PO 500 mg TID [facility] Administration Cholecalciferol 50 mcg 04/11/25 10:00 04/12/25 10:05 Cholecalciferol (Vit D3) 25 Mcg Tablet (1,000 Units) PO 50 mcg DAILY [facility] Administration Cyanocobalamin 1,000 mcg 04/13/25 10:00 Cyanocobalamin 500 Mcg Tablet PO We@1000 [facility] Divalproex Sodium 250 mg 04/11/25 14:00 04/13/25 05:40 Divalproex Sodium 125 Mg Sprinkle PO 250 mg Q8 [facility] Administration Enoxaparin Sodium 40 mg 04/11/25 11:14 04/12/25 10:03 Enoxaparin 40 Mg/0.4 Ml Syringe SC 40 mg DAILY BRIANA Administration Escitalopram Oxalate 10 mg 04/11/25 10:00 04/12/25 21:36 Escitalopram Oxalate 10 Mg Tablet PO 10 mg BID [facility] Administration Ferrous Sulfate 325 mg 04/12/25 12:00 04/12/25 10:06 Ferrous Sulfate 325 Mg Tablet PO 325 mg Q48@1200 [facility] Administration Fludrocortisone Acetate 0.1 mg 04/11/25 10:00 04/12/25 10:02 Fludrocortisone Acetate 0.1 Mg Tablet PO 0.1 mg DAILY [facility] Administration Fluticasone Propionate 1 spray 04/11/25 10:00 04/13/25 06:02 Fluticasone 0.05% 1 [place] Nasal.Sry NASAL 1 spray DAILY [facility] Administration Guaifenesin 10 ml 04/11/25 11:14 Guaifenesin 10 Ml Udc (200mg/10ml) PO Q4H PRN PRN COUGH Hydralazine HCl 10 mg 04/11/25 14:00 04/13/25 05:39 Hydralazine 10 Mg Tablet PO 10 mg TID BRIANA Administration Protocol Hydrocortisone 15 mg 04/11/25 10:00 04/12/25 10:01 Hydrocortisone 10 Mg Tablet PO 15 mg DAILY BRIANA Administration Vancomycin IV-PHARMACY TO DOSE 500 mls @ 250 mls/hr 04/11/25 11:10 1 each/ Sodium Chloride IV X1 PRN Rx to Dose Protocol Azithromycin 500 mg/ Sodium 250 mls @ 250 mls/hr 04/12/25 10:00 04/12/25 11:16 Chloride IV 04/17/25 10:01 Infused Q24 BRIANA Infusion Cefepime HCl 2 gm/ Sodium 100 mls @ 200 mls/hr 04/11/25 14:00 04/13/25 06:37 Chloride IV 04/18/25 14:01 Infused Q8 BRIANA Infusion Sodium Chloride 250 mls @ 15 mls/hr 04/11/25 12:53 04/12/25 21:09 IV 0 mls/hr .[id number] PRN Infusion Saline Flush Sodium Chloride 250 mls @ 15 mls/hr 04/11/25 12:53 IV .[id number] PRN Additional IVPB Infusion Vancomycin HCl 1,250 mg/ 275 mls @ 167 mls/hr 04/12/25 15:00 04/13/25 08:17 Sodium Chloride IV Infused Q8H BRIANA Infusion Lisinopril 20 mg 04/12/25 10:00 04/12/25 10:05 Lisinopril 20 Mg Tablet PO 20 mg DAILY BRIANA Administration Protocol Lorazepam 2 mg 04/11/25 09:39 Lorazepam 1 Mg Tablet PO Q6H PRN AGITATION Lorazepam 2 mg 04/12/25 07:30 04/13/25 05:39 Lorazepam 1 Mg Tablet PO 2 mg TID BRIANA Administration Ondansetron HCl 4 mg 04/11/25 11:14 Ondansetron 4 Mg/2 Ml Vial IV Q8H PRN PRN NAUSEA/VOMITING Pantoprazole Sodium 40 mg 04/11/25 10:00 04/12/25 10:04 Pantoprazole Sodium 40 Mg Tablet PO 40 mg DAILY BRIANA Administration Polyethylene Glycol 17 gm 04/11/25 10:00 04/12/25 10:03 Polyethylene Glycol 3350 17 Gm Packet PO 17 gm DAILY BRIANA Administration Propranolol HCl 80 mg 04/11/25 10:00 04/12/25 10:03 Propranolol La 80 Mg Capsule PO 80 mg DAILY BRIANA Administration Protocol Quetiapine Fumarate 300 mg 04/11/25 22:00 04/12/25 21:37 Quetiapine 100 Mg Tablet PO 300 mg BID BRIANA Administration Senna/Docusate Sodium 2 tablet 04/11/25 11:14 Senna/Docusate Sodium 1 Tablet PO BID PRN PRN Constipation Senna/Docusate Sodium 2 tablet 04/12/25 10:00 04/12/25 21:37 Senna/Docusate Sodium 1 Tablet PO 2 tablet BID BRIANA Administration Sodium Chloride 10 - 40 ml 04/11/25 12:53 04/13/25 05:38 0.9% Saline Lock 10 Ml Syringe IV 10 ml UD PRN Administration SALINE FLUSH Vancomycin Protocol 1 lab 04/13/25 13:30 Vancomycin Trough/Random Due MC 04/13/25 15:30 DAILY BRIANA Lab / Micro Data 04/13/25 05:37 04/13/25 05:37 Labs: Laboratory Results - last 24 hr 04/12/25 04:40: b-Hydroxybutyric mmol/L 0.1 04/12/25 09:35: Lactic Acid 1.6 04/12/25 10:30: Vancomycin Trough 23.0 H 04/12/25 11:46: Vancomycin Trough 20.8 H 04/13/25 05:37: WBC 10.1, RBC 3.11 L, Hgb 8.6 L, Hct 28.2 L, MCV 90.7, MCH 27.7, MCHC 30.5 L, RDW Std Deviation 49.5 H, RDW Coeff of Eleanor 14.8 H, Plt Count 171, MPV 9.5, Immature Gran % (Auto) 4.200 H, Neut % (Auto) 81.0 H, Lymph % (Auto) 3.5 L, [place] % (Auto) 9.1, Eos % (Auto) 1.9, Baso % (Auto) 0.3, Absolute Neuts (auto) 8.2 H, Absolute Lymphs (auto) 0.35 L, Nucleated RBC % 0, Sodium 142, Potassium 3.7, Chloride 97 L, Carbon Dioxide 37.3 H, Anion Gap 7, BUN 5, C reatinine 0.65 L, Estim Creat Clear Calc 156.41, Est GFR (MDRD) Non-Af 111, B UN/Creatinine Ratio 8.3 L, Glucose 141 H, Calcium 8.9 Assessment and Plan . Assessment and plan: Critical Care Time: The entirety of this encounter was done via Telemedicine Subjective Subjective Pt seen and examined. Poor historian. States he feels generally unwell. Noted to have difficulty taking pills this AM. Currently on 10L HFNC but sats range from 85-88%. PE: General: Well developed acute on chronically ill appearing male, in no distress HEENT: anicteric Sclera, nl nose; supple neck, no masses Cardiovascular: S1/S2; No rubs, gallops; no displaced PM Respiratory: diminished; no crackles, wheezes, or rhonchi Abdominal: Non-tender; Non distended; hypoBS x 4; No Hepatosplenomegaly Extremities: Warm, well perfused; No clubbing, cyanosis; capillary refill < 2 sec Skin: intact, no rashes Neurological: awake; ?confused; no focal neuro deficits appreciated Pysch: flat affect; poor insight/judgement; no hallucinations A/P: #Acute hypoxemic respiratory failure #Sepsis #PNA, suspected aspiration #Adrenal insufficiency #Acute on chronic anemia #Learning disability #Schizoaffective disorder #COPD/asthma #HTN #Morbid obesity -Would favor leaving him on HHFNC for additional 24-48h; wean FiO2 to target sats ~90-92% before weaning flow; encourage mobilization/upright positioning/IS use; repeat CXR today -Cont broad spectrum emp IV Abx- vanc/cefepime/azithro; F/U Cx; MRSA screen positive; monitor temp curve/WBC/band % -Nebs +/- Mucomyst for bronchopulm hygiene -F/U repeat ST eval given concern for on-going dysphagia/aspiration -Cont home fludrocortisone & hydrocortisone -Monitoring blood counts PO diet with ST precautions LMWH Guarded prognosis Nando Ramirez MD CCT: 50 min Entirety of encounter done via telemedicine Vitals, labs, diagnostics reviewed in EMR. This patients illness acutely impairs one or more vital organ systems such that there is a high probability of imminent or life threatening deterioration in the patient’s condition. I have used high-complexity decision making to assess, manipulate, & support vital systems to treat single or multiple vital organ system failure &/or prevent further life threatening deterioration of the patient’s condition. Time of note does not reflect time of service.
--- NOTE | 2025-04-13 08:21 | PN.HOSP_ITS ---
Reason for Visit Chief Complaint: Shortness of breath Subjective Subjective Patient did have a choking sensation was getting pills. Plan is for patient to undergo repeat speech eval. Oxygen requirement up to 7 L/min. Objective Data Objective Data Vital Signs: Vital Signs Temp Pulse Resp BP Pulse Ox O2 Del Method O2 Flow Rate 98 F 100 18 158/83 H 94 Nasal Cannula 7 04/13/25 05:33 04/13/25 07:10 04/13/25 07:10 04/13/25 05:39 04/13/25 07:10 04/13/25 07:10 04/13/25 07:10 FiO2 55 04/11/25 16:00 Oxygen Flow Rate (L/min) 7 Oxygen Delivery Method Nasal Cannula Weight: 126.5 kg Body Mass Index (BMI) 47.8 Intake & Output: Intake and Output for Last 24 Hours 04/11/25 04/12/25 04/13/25 23:59 23:59 23:59 Intake Total 4330 / 4330 3619 / 3619 650 / 650 Output Total 375 / 375 450 / 950 1300 / 1300 Balance 3955 / 3955 3169 / 2669 -650 / -650 Lab / Micro Data 04/13/25 05:37 04/13/25 05:37 Labs: Laboratory Results - last 24 hr 04/12/25 04:40: b-Hydroxybutyric mmol/L 0.1 04/12/25 09:35: Lactic Acid 1.6 04/12/25 10:30: Vancomycin Trough 23.0 H 04/12/25 11:46: Vancomycin Trough 20.8 H 04/13/25 05:37: WBC 10.1, RBC 3.11 L, Hgb 8.6 L, Hct 28.2 L, MCV 90.7, MCH 27.7, MCHC 30.5 L, RDW Std Deviation 49.5 H, RDW Coeff of Eleanor 14.8 H, Plt Count 171, MPV 9.5, Immature Gran % (Auto) 4.200 H, Neut % (Auto) 81.0 H, Lymph % (Auto) 3.5 L, [place] % (Auto) 9.1, Eos % (Auto) 1.9, Baso % (Auto) 0.3, Absolute Neuts (auto) 8.2 H, Absolute Lymphs (auto) 0.35 L, Nucleated RBC % 0, Sodium 142, Potassium 3.7, Chloride 97 L, Carbon Dioxide 37.3 H, Anion Gap 7, BUN 5, C reatinine 0.65 L, Estim Creat Clear Calc 156.41, Est GFR (MDRD) Non-Af 111, B UN/Creatinine Ratio 8.3 L, Glucose 141 H, Calcium 8.9 Micro: Microbiology 04/11/25 19:33 Mucosa - Nasopharyngeal Coronavirus COVID-19 PCR - Final 04/11/25 08:11 Urine, Random Legionella Antigen - Final 04/11/25 08:11 Urine, Random Streptococcus pneumoniae Antigen (M - Final 04/11/25 12:40 Nasal Secretion MRSA (PCR) - Final Meth. resistant Staph. aureus 04/11/25 11:06 Mucosa - Nasopharyngeal Respiratory Panel (PCR) - Final 04/11/25 08:12 Mucosa - Nose SARS-CoV-2, Influenza & RSV (PCR) - Final 04/11/25 08:11 Urine Catheter - Catheter Legionella Antigen - Final 04/11/25 08:11 Urine Catheter - Catheter Streptococcus pneumoniae Antigen (M - Final Physical Exam Narrative GENERAL: Sleepy but easily arousable HEENT: Atraumatic; normocephalic EYES; Anicteric, Normal Conjunctiva NECK; supple, normal thyroid, RESPIRATORY: Diminished to auscultation CARDIOVASCULAR: Regular S1 S2, tachycardic GI: soft, normoactive bowel sounds, : No Renal angle tenderness; EXTREMITIES: No edema, no clubbing, MUSCULOSKELETAL: no muscle wasting NEURO: no lateralizing signs. SKIN: No Rash PSYCH; Flat affect Assessment & Plan Assessment/Plan (1) Pneumonia: (2) Acute hypoxemic respiratory failure: (3) Severe sepsis: PLAN: Plan Patient is a 55-year-old gentleman with history of learning disability resident at a prison who was brought in with shortness of breath following bouts of emesis 1. Sepsis – Secondary to suspected aspiration pneumonia patient had evidence of SIRS criteria with evidence of endorgan dysfunction–respiratory failure. Treatment initiated per protocol with IV fluid resuscitation cultures including blood sent. Patient started on broad-spectrum antibiotic therapy. Response to therapy being monitored with vitals as well as serial lactic acid levels – 04/12/2025; culture still pending. WBC count remains elevated will repeat CBC with differential in AM –04/13/2025; patient respiratory and blood cultures so far negative to date. His MRSA PCR screen was however positive 2. Acute hypoxic respiratory failure – Secondary to suspected aspiration pneumonia imaging studies obtained on admission did show Airspace disease including acinar opacities; this has worsened. Acinar opacities represent alveolar filling with mucous, pus or fluid. Patient placed on noninvasive ventilation–Airvo admitted to the intensive care unit consult was placed to conventional underwriter/pulmonary care from the ED – 04/12/2020 2570 patient did require noninvasive ventilation Airvo and is currently down to nasal cannula 10 L flow per minute. Plan is for patient to be transferred from the intensive care unit to PCU – 04/13/2025;Patient did have a choking sensation was getting pills. Plan is for patient to undergo repeat speech eval. Oxygen requirement up to 7 L/min. 3. Suspected aspiration pneumonia – Imaging studies did show Airspace disease including acinar opacities; this has worsened. Acinar opacities represent alveolar filling with mucous, pus or fluid. Initial evaluation with viral respiratory panel, COVID assay, sputum and blood cultures sent. Patient placed on broad-spectrum antibiotic therapy with cefepime as well as azithromycin 4. Adrenal insufficiency – Patient did receive stress dose of hydrocortisone from the ED. Patient is on fludrocortisone as well as hydrocortisone daily–continue home dose 5. Essential hypertension – Holding patient antihypertensives given her presentation. Plan is to resume once patient blood pressure stabilizes 6. Schizoaffective disorder – Did continue patient home meds except for Fanapt again (hospital does not carry) 7. COPD/asthma – Currently not in exacerbation Jennifer treatment as needed 8. Anemia – Secondary to chronic disorder monitoring H&H and transfuse if patient becomes symptomatic or hemoglobin falls below 7 – 04/12/2025; patient hemoglobin down to 8.7 we will continue with monitoring repeated H&H in a.m. 9. Class III obesity with BMI of 47 – Complicating care 10. DVT prophylaxis – Subcu enoxaparin Time spent in the patient's overall evaluation,decision-making process, review of diagnostic data, adjustment of management, discussion with other providers, nursing nursing and ancillary staff involved in patient's care documentation, 38 minutes Charges/Coding Visit Charges Inpatient E&M: 42529 Subs Hosp L2
[2025-04-13] MEDS: Azithromycin 500 MG in 0.9% Normal Saline (250mL Bag) 250 ML 250 MG IV (09:12)
[2025-04-13] MEDS: Acetylcysteine 800 MG/4 ML VIAL.NEB. INHALATION ×2 (13:12→17:13)
--- NOTE | 2025-04-13 14:18 | RAD_ITS ---
PROCEDURE: CHEST 1 VIEW (PORTABLE) 04/13/2025 REASON FOR EXAM: PNA F/U TECHNIQUE: Frontal view of the chest. COMPARISON: April 11, 2025. FINDINGS: Hardware: EKG electrodes are seen. Heart: Moderate cardiomegaly. Lungs: Persistent bibasilar infiltrates. The previously seen pneumonic infiltration in the inferior medial aspect of the right lung base has improved. Further follow-up recommended. Bones: Degenerative changes are identified within the thoracic spine. RAD/Chest 1 View (Portable) IMPRESSION: Improved aeration of both lungs. Reading Location: [id number]
[2025-04-13 15:50] LABS: Vancomycin, Trough Level 15.6 ug/mL (5.0-15.0)
--- NOTE | 2025-04-13 16:13 | PCM.RX.CS ---
Consult Antibiotic Management Pharmacy has been consulted to manage selected antibiotic: Vancomycin Type of Intervention Type of Consult: Follow-up Labs Labs: Sodium 142 mmol/L (133-145) 04/13/25 05:37 Potassium 3.7 mmol/L (3.3-5.1) 04/13/25 05:37 Chloride 97 mmol/L (98-108) L 04/13/25 05:37 Carbon Dioxide 37.3 mmol/L (21.0-32.0) H 04/13/25 05:37 Anion Gap 7 (5-15) 04/13/25 05:37 BUN 5 mg/dL (4-19) 04/13/25 05:37 Creatinine 0.65 mg/dL (0.70-1.20) L 04/13/25 05:37 Est GFR (MDRD) Non-Af 111 (>60) 04/13/25 05:37 BUN/Creatinine Ratio 8.3 RATIO (10-20) L 04/13/25 05:37 Glucose 141 mg/dL (70-99) H 04/13/25 05:37 Vancomycin Trough 15.6 ug/mL (5.0-15.0) H 04/13/25 14:39 Microbiology Microbiology: Microbiology 04/11/25 07:42 Blood Culture (Wb) - Anticubital Left Blood Culture - Preliminary No growth in 48 hours. 04/11/25 07:30 Blood Culture (Wb) - Left Hand Blood Culture - Preliminary No growth in 48 hours. 04/11/25 08:11 Urine, Catheterized Urine Culture - Final Culture exhibits no growth. 04/11/25 19:33 Mucosa - Nasopharyngeal Coronavirus COVID-19 PCR - Final 04/11/25 08:11 Urine, Random Legionella Antigen - Final 04/11/25 08:11 Urine, Random Streptococcus pneumoniae Antigen (M - Final 04/11/25 12:40 Nasal Secretion MRSA (PCR) - Final Meth. resistant Staph. aureus 04/11/25 11:06 Mucosa - Nasopharyngeal Respiratory Panel (PCR) - Final 04/11/25 08:12 Mucosa - Nose SARS-CoV-2, Influenza & RSV (PCR) - Final 04/11/25 08:11 Urine Catheter - Catheter Legionella Antigen - Final 04/11/25 08:11 Urine Catheter - Catheter Streptococcus pneumoniae Antigen (M - Final Goal Trough Goal Trough: 15-20 mcg/mL Pharmacy Plan for Drug Dosing Pharmacy Plan for Drug Dosing: VANCOMYCIN LEVEL RECEIVED Current Vancomycin Dose: 1250mg IV Q8h Number of Doses Received: 3 (of current regimen) Vancomycin Level: 15.6 (goal 15-20) Hours Since Last Dose: 8hr Renal Function: SCr 0.65/ crcl 156 mL/min Renal Function Trend: stable Lab/Micro: SCx growing MRSA Vancomycin Plan/Comments: Patient had a trough drawn which resulted in a value of 15.6 (goal 15-20). The patient's trough is now within therapeutic goal. Will continue current dose and recheck a trough in 2 days to assess dosing at that time Pending Level: 04/15/25 @1430 Pharmacy Service will continue to monitor and adjust dosing as required.
--- NOTE | 2025-04-13 22:49 | PCM.HOSP.N ---
Hospitalist Note Nursing staff reports the patient has been too lethargic for most if not all of today for him to safely take p.o. medications. I was notified of uptrending systolic BP. Hold placed on scheduled p.o. hydralazine, converted order to 10 mg hydralazine IV as needed every 6 hours systolic greater than 170. Patient is on lorazepam 2 mg 3 times a day scheduled in addition to 2 mg as needed every 6 hours. Previous scheduled dose of lorazepam was reduced and he only received 1 mg of his scheduled dose. Okay to hold tonight's full dose of Ativan. Speech is to reeval patient. Consider NGT placement, or conversion of oral medications to alternate administration route.
[2025-04-14] VITALS (20 sets, daily range): BP systolic 156–196; BP diastolic 83–96; PULSE 55–108; RESP 14–28; TEMP 36.5–37.1; O2SAT 92–99; BMI 46.5
--- NOTE | 2025-04-14 00:40 | PN.HOSP_ITS ---
Hospitalist Note Called due to increased somnolence. Patient was noted to have increasing oxygen demand with sats at 91 to 93% on 8 L heated high flow nasal cannula. Very sleepy not able to take p.o. medications. Stat ABG obtained after medications reviewed. It does look like his scheduled Ativan was reinitiated and per nursing staff he did get all the scheduled doses today. ABG revealed acute on chronic hypoxic and hypercapnic respiratory failure. pH was 7.27 with a pCO2 of 100, PaO2 of 65 and a bicarb of 46.1. This was on heated high flow nasal can nula. Patient was placed on stat BiPAP via AVAPS. N.p.o. for now. Repeat ABG in 2 hours. Baseline pCO2 appears to run between 50 and 60. Highly suspect decreased respiratory drive due to morbid obesity with BEATRICE/OHS, Ativan use, and ongoing potential aspiration. Discontinue scheduled Ativan and continue as needed. Will give flumazenil 0.2 mg IV x 1 dose.
[2025-04-14 01:22] LABS: Allen Test Positive; Base Excess 19 mmol/L (-2 to +2); FI02 8.0; PO2 65 mmHG (75-100); SITE R Radial; SO2 87 % (94-98)
[2025-04-14] MEDS: Cefepime HCl 2 GM in 0.9% Normal Saline (100mL MB+) 100 ML IV ×3 (05:08→21:52)
[2025-04-14 05:39] LABS: Allen Test Negative; Base Excess 21 mmol/L (-2 to +2); FI02 50.0; PEEP 10; PO2 57 mmHG (75-100); RR 14; SITE L Radial; SO2 84 % (94-98)
[2025-04-14] MEDS: 0.9% Saline Lock 10 ML Syringe IV ×4 (06:05→23:09)
[2025-04-14] MEDS: Vancomycin HCl 1,250 MG in 0.9% Normal Saline (250mL Bag) 250 ML 167 MG IV ×3 (06:05→23:06)
[2025-04-14 06:16] LABS: Hematocrit 31.6 % (40-54); Hemoglobin 9.2 g/dL (13.0-16.5); Immature Granulocytes Count 0.250 X10^3/uL (0.0-0.0); Mean Corp Hgb Conc 29.1 g/dL (32-36); Mean Corpuscular Volume 92.4 fL (80-94); Mean Platelet Vol. 9.5 fl (6.2-12.0); NRBC Flagged by Analyzer 0 % (0-5); POSITIVE DIFFERENTIAL YES; Platelet Count 179 K/mm3 (150-450); RBC Distribution Width CV 14.4 % (11.6-14.6); RBC Distribution Width SD 48.4 fl (35.1-43.9); Red Blood Count 3.42 M/mm3 (4.6-6.2); White Blood Count 7.6 K/mm3 (4.4-11.0)
[2025-04-14 06:43] LABS: Anion Gap 6 (5-15); BUN 6 mg/dL (4-19); BUN/Creat Ratio 11.9 RATIO (10-20); Calcium,Total 9.2 mg/dL (7.6-11.0); Carbon Dioxide 44.2 mmol/L (21.0-32.0); Chloride 93 mmol/L (98-108); Estimated Creatinine Clearance 204.12 ml/min (50-250); Glucose 128 mg/dL (70-99); Potassium 3.9 mmol/L (3.3-5.1)
[2025-04-14] MEDS: Acetylcysteine 800 MG/4 ML VIAL.NEB. INHALATION ×2 (07:16→19:14)
--- NOTE | 2025-04-14 09:27 | PCM.PN.HOSP ---
Reason for Visit Chief Complaint: Shortness of breath Subjective Subjective Plan was found to be significantly lethargic throughout the evening. ABGs demonstrated significant hypercapnia this was attributed to patient receiving scheduled benzos. Did receive flumazenil and subsequently placed on BiPAP Objective Data Objective Data Vital Signs: Vital Signs Temp Pulse Resp BP Pulse Ox O2 Del Method O2 Flow Rate 97.7 F L 103 H 19 H 169/86 H 97 Bi-pap 8 04/14/25 08:00 04/14/25 08:00 04/14/25 08:00 04/14/25 08:00 04/14/25 08:00 04/14/25 08:09 04/14/25 00:00 FiO2 65 04/14/25 08:09 Oxygen Flow Rate (L/min) 8 Oxygen Delivery Method Bi-pap Weight: 123 kg Body Mass Index (BMI) 46.5 Intake & Output: Intake and Output for Last 24 Hours 04/12/25 04/13/25 04/14/25 23:59 23:59 23:59 Intake Total 3619 / 3619 1595 / 1595 650 / 650 Output Total 450 / 950 3350 / 3350 450 / 450 Balance 3169 / 2669 -1755 / -1755 200 / 200 Lab / Micro Data 04/14/25 05:18 04/14/25 05:18 Labs: Laboratory Results - last 24 hr 04/13/25 14:39: Vancomycin Trough 15.6 H 04/14/25 05:18: WBC 7.6, RBC 3.42 L, Hgb 9.2 L, Hct 31.6 L, MCV 92.4, MCH 26.9 L, MCHC 29.1 L, RDW Std Deviation 48.4 H, RDW Coeff of Eleanor 14.4, Plt Count 179, MPV 9.5, Immature Gran % (Auto) 3.300 H, Neut % (Auto) 84.1 H, Lymph % (Auto) 3.0 L, [place] % (Auto) 8.4, Eos % (Auto) 0.3, Baso % (Auto) 0.9, Absolute Neuts (auto) 6.4, Absolute Lymphs (auto) 0.23 L, Nucleated RBC % 0, Sodium 143, Potassium 3.9, Chloride 93 L, Carbon Dioxide 44.2 H, Anion Gap 6, BUN 6, Creatinine 0.49 L, Estim Creat Clear Calc 204.12, Est GFR (MDRD) Non-Af 121, BUN/Creatinine Ratio 11.9, Glucose 128 H, Calcium 9.2 Micro: Microbiology 04/11/25 07:42 Blood Culture (Wb) - Anticubital Left Blood Culture - Preliminary No growth in 48 hours. 04/11/25 07:30 Blood Culture (Wb) - Left Hand Blood Culture - Preliminary No growth in 48 hours. 04/11/25 08:11 Urine, Catheterized Urine Culture - Final Culture exhibits no growth. 04/11/25 19:33 Mucosa - Nasopharyngeal Coronavirus COVID-19 PCR - Final 04/11/25 08:11 Urine, Random Legionella Antigen - Final 04/11/25 08:11 Urine, Random Streptococcus pneumoniae Antigen (M - Final 04/11/25 12:40 Nasal Secretion MRSA (PCR) - Final Meth. resistant Staph. aureus 04/11/25 11:06 Mucosa - Nasopharyngeal Respiratory Panel (PCR) - Final 04/11/25 08:12 Mucosa - Nose SARS-CoV-2, Influenza & RSV (PCR) - Final 04/11/25 08:11 Urine Catheter - Catheter Legionella Antigen - Final 04/11/25 08:11 Urine Catheter - Catheter Streptococcus pneumoniae Antigen (M - Final ABG Data ABG results: ABG 04/14/25 04/14/25 01:17 05:34 Specimen Type ART ART Sample Site R Radial L Radial pH 7.27 L 7.31 L Bicarbonate Actual 46.1 H 47.3 H Total CO2 49 > 50 Base Excess 19 H 21 H O2 Saturation 87 L 84 L O2 % 8.0 50.0 ABG pCO2 100.0 H* 93.9 H* ABG pO2 65 L 57 L Fei Test Positive Negative Respiration Rate 14 O2 Delivery Device HFNC BiPAP Vent Mode Not entered Not entered Tidal Volume 500.0 POC PEEP 10 Crit Call To/Read Back Yes Yes Blood Gas Notified Whom Dr. Beck perez Blood Gas Notified Time 01:19:44 05:36:07 Radiography Diagnostic Testing: Radiology Impression Chest X-Ray 04/13/25 14:18 IMPRESSION: Improved aeration of both lungs. Reading Location: [facility] Physical Exam Narrative GENERAL: lethargic, on BiPap HEENT: Atraumatic; normocephalic EYES; Anicteric, Normal Conjunctiva NECK; supple, normal thyroid, RESPIRATORY: Diminished to auscultation CARDIOVASCULAR: Regular S1 S2, tachycardic GI: soft, normoactive bowel sounds, : No Renal angle tenderness; EXTREMITIES: No edema, no clubbing, MUSCULOSKELETAL: no muscle wasting NEURO: no lateralizing signs. SKIN: No Rash PSYCH; Flat affect Assessment & Plan Assessment/Plan (1) Pneumonia: (2) Acute hypoxemic respiratory failure: (3) Severe sepsis: PLAN: Plan Patient is a 55-year-old gentleman with history of learning disability resident at a retirement who was brought in with shortness of breath following bouts of emesis 1. Sepsis – Secondary to suspected aspiration pneumonia patient had evidence of SIRS criteria with evidence of endorgan dysfunction–respiratory failure. Treatment initiated per protocol with IV fluid resuscitation cultures including blood sent. Patient started on broad-spectrum antibiotic therapy. Response to therapy being monitored with vitals as well as serial lactic acid levels – 04/12/2025; culture still pending. WBC count remains elevated will repeat CBC with differential in AM –04/13/2025; patient respiratory and blood cultures so far negative to date. His MRSA PCR screen was however positive 2. Acute hypoxic respiratory failure – Secondary to suspected aspiration pneumonia imaging studies obtained on admission did show Airspace disease including acinar opacities; this has worsened. Acinar opacities represent alveolar filling with mucous, pus or fluid. Patient placed on noninvasive ventilation–Airvo admitted to the intensive care unit consult was placed to chief marketing officer/pulmonary care from the ED – 04/12/2020 [id number] patient did require noninvasive ventilation Airvo and is currently down to nasal cannula 10 L flow per minute. Plan is for patient to be transferred from the intensive care unit to PCU – 04/13/2025;Patient did have a choking sensation was getting pills. Plan is for patient to undergo repeat speech eval. Oxygen requirement up to 7 L/min. 3. Acute hypercapnic respiratory failure – 04/14/2025 Secondary to respiratory depression from benzos. Scheduled benzos discontinued patient did receive flumazenil subsequently placed on BiPAP repeat ABGs did show slight improvement in patient's hypercapnia. Ordered repeat ABG 4. Suspected aspiration pneumonia – Imaging studies did show Airspace disease including acinar opacities; this has worsened. Acinar opacities represent alveolar filling with mucous, pus or fluid. Initial evaluation with viral respiratory panel, COVID assay, sputum and blood cultures sent. Patient placed on broad-spectrum antibiotic therapy with cefepime as well as azithromycin 5. Adrenal insufficiency – Patient did receive stress dose of hydrocortisone from the ED. Patient is on fludrocortisone as well as hydrocortisone daily–continue home dose 6. Essential hypertension – Holding patient antihypertensives given her presentation. Plan is to resume once patient blood pressure stabilizes 7. Schizoaffective disorder – Did continue patient home meds except for Fanapt again (hospital does not carry) 8. COPD/asthma – Currently not in exacerbation aerosol treatment as needed 9. Anemia – Secondary to chronic disorder monitoring H&H and transfuse if patient becomes symptomatic or hemoglobin falls below 7 – 04/12/2025; patient hemoglobin down to 8.7 we will continue with monitoring repeated H&H in a.m. 10. Class III obesity with BMI of 47 – Complicating care 11. DVT prophylaxis – Subcu enoxaparin Time spent in the patient's overall evaluation,decision-making process, review of diagnostic data, adjustment of management, discussion with other providers, nursing nursing and ancillary staff involved in patient's care documentation, 50 minutes Charges/Coding Visit Charges Inpatient E&M: 21451 Subs Hosp L3
--- NOTE | 2025-04-14 10:57 | CASEMGMT ---
Addendum entered by Jeannette Katz 04/14/25 11:44: Fax confirmation rec'd. Jeannette Katz DC Planning Asst. Original Note: Discharge Planning Updates faxed to [facility] with note that there are no plans for discharge as of yet. Jeannette Katz DC Planning Asst.
[2025-04-14 12:23] LABS: Allen Test Positive; Base Excess 27 mmol/L (-2 to +2); FI02 65.0; PEEP 5; PO2 62 mmHG (75-100); RR 14; SITE L Radial; SO2 87 % (94-98)
[2025-04-14] MEDS: Azithromycin 500 MG in 0.9% Normal Saline (250mL Bag) 250 ML 250 MG IV (12:36)
--- NOTE | 2025-04-14 13:37 | PN.CC_ITS ---
Objective Data Objective Data Vital Signs: Vital Signs Last response 3 Temperature 36.5 C L 04/14/25 08:00 Temperature Source Temporal 04/14/25 08:00 Pulse Rate 100 04/14/25 12:43 Pulse Strength Weak (1+) 04/13/25 22:00 Respiratory Rate 22 H 04/14/25 12:43 Respiratory Effort Normal, Non-Labored 04/14/25 08:09 Respiratory Depth Normal 04/14/25 08:09 Respiratory Pattern Tachypnea 04/14/25 12:43 Blood Pressure 169/86 H 04/14/25 08:00 Blood Pressure Mean 113 04/14/25 08:00 Blood Pressure Source Monitor 04/14/25 08:00 Blood Pressure Position Left Lateral 04/14/25 08:00 Blood Pressure Location Right Forearm 04/14/25 08:00 Pulse Ox 93 04/14/25 12:43 Oxygen Delivery Method Bi-pap 04/14/25 12:07 Oxygen Flow Rate (L/min) 8 04/14/25 00:00 Fraction of Inspired Oxygen (FIO2) 65 04/14/25 12:43 EtCo2 - Document during CPR and with ROSC 65 04/14/25 12:07 I&O: I&O Last 24 Hours 3 04/13/25 04/14/25 04/14/25 23:59 11:59 23:59 Intake Total 695 / 1595 650 / 650 Output Total 2050 / 3350 450 / 1150 700 / 1150 Balance -1355 / -1755 200 / -500 -700 / -500 I&O: Total Stay 3 04/11/25 07:13 thru 04/14/25 12:00 Intake Total 68707 Output Total 5325 Balance 4869 Current Meds Ordered / Administered: Current meds ordered / Administered 3 Generic Name Dose Route Start Last Admin Trade Name Freq PRN Reason Stop Dose Admin Acetaminophen 650 mg 04/12/25 08:29 Acetaminophen 325 Mg Tablet PO Q4H PRN fever or pain 1-10 Acetylcysteine 800 mg 04/13/25 11:00 04/14/25 07:16 Acetylcysteine 800 Mg/4 Ml Vial.Neb. INHALATION 800 mg BID.RT BRIANA Administration Albuterol Sulfate 2.5 mg 04/11/25 11:14 Albuterol 2.5 Mg/3 Ml Vial.Neb. INHALATION Q2H PRN PRN SOB &/OR WHEEZING Albuterol/Ipratropium 3 ml 04/13/25 11:00 04/14/25 12:42 Ipratropium/Albuterol Sulfate 3 Ml Ampul.Neb INHALATION 3 ml Q6HWA.RT [facility] Administration Amlodipine Besylate 5 mg 04/12/25 10:00 04/14/25 10:31 Amlodipine 5 Mg Tablet PO Not Given DAILY [facility] Protocol Aspirin 81 mg 04/12/25 08:00 04/14/25 08:13 Aspirin E.C. 81 Mg Tablet PO Not Given BREAKFAST [facility] Benztropine Mesylate 1 mg 04/11/25 10:00 04/14/25 10:30 Benztropine 2 Mg Tablet PO Not Given BID [facility] Calcium Carbonate 500 mg 04/11/25 14:00 04/14/25 05:11 Calcium (Elemental) 500 Mg Tablet PO Not Given TID [facility] Cholecalciferol 50 mcg 04/11/25 10:00 04/14/25 11:16 Cholecalciferol (Vit D3) 25 Mcg Tablet (1,000 Units) PO Not Given DAILY [facility] Cyanocobalamin 1,000 mcg 04/13/25 10:00 04/13/25 13:02 Cyanocobalamin 500 Mcg Tablet PO Not Given We@1000 [facility] Divalproex Sodium 250 mg 04/11/25 14:00 04/14/25 05:11 Divalproex Sodium 125 Mg Sprinkle PO Not Given Q8 [facility] Enoxaparin Sodium 40 mg 04/11/25 11:14 04/14/25 13:33 Enoxaparin 40 Mg/0.4 Ml Syringe SC 40 mg DAILY [facility] Administration Escitalopram Oxalate 10 mg 04/11/25 10:00 04/14/25 10:30 Escitalopram Oxalate 10 Mg Tablet PO Not Given BID [facility] Ferrous Sulfate 325 mg 04/12/25 12:00 04/14/25 11:16 Ferrous Sulfate 325 Mg Tablet PO Not Given Q48@1200 [facility] Fludrocortisone Acetate 0.1 mg 04/11/25 10:00 04/14/25 10:30 Fludrocortisone Acetate 0.1 Mg Tablet PO Not Given DAILY [facility] Fluticasone Propionate 1 spray 04/11/25 10:00 04/14/25 10:30 Fluticasone 0.05% 1 [place] Nasal.Sry NASAL Not Given DAILY [facility] Guaifenesin 10 ml 04/11/25 11:14 Guaifenesin 10 Ml Udc (200mg/10ml) PO Q4H PRN PRN COUGH Hydralazine HCl 10 mg 04/11/25 14:00 04/13/25 22:34 Hydralazine 10 Mg Tablet PO Not Given TID BRIANA Protocol Hydralazine HCl 10 mg 04/13/25 22:47 04/13/25 23:29 Hydralazine 20 Mg/Ml Vial IV 10 mg Q6H PRN PRN Administration SBP GREATER THAN 170 Protocol Hydrocortisone 15 mg 04/11/25 10:00 04/14/25 10:30 Hydrocortisone 10 Mg Tablet PO Not Given DAILY B[facility]ANA Vancomycin IV-PHARMACY TO DOSE 500 mls @ 250 mls/hr 04/11/25 11:10 1 each/ Sodium Chloride IV X1 PRN Rx to Dose Protocol Azithromycin 500 mg/ Sodium 250 mls @ 250 mls/hr 04/12/25 10:00 04/14/25 12:36 Chloride IV 04/17/25 10:01 250 mls/hr Q24 BRIANA Administration Cefepime HCl 2 gm/ Sodium 100 mls @ 200 mls/hr 04/11/25 14:00 04/14/25 05:38 Chloride IV 04/18/25 14:01 Infused Q8 BRIANA Infusion Sodium Chloride 250 mls @ 15 mls/hr 04/11/25 12:53 04/12/25 21:09 IV 0 mls/hr .[id number] PRN Infusion Saline Flush Sodium Chloride 250 mls @ 15 mls/hr 04/11/25 12:53 IV .[id number] PRN Additional IVPB Infusion Vancomycin HCl 1,250 mg/ 275 mls @ 167 mls/hr 04/12/25 15:00 04/14/25 08:14 Sodium Chloride IV Infused Q8H BRIANA Infusion Lisinopril 20 mg 04/12/25 10:00 04/14/25 11:16 Lisinopril 20 Mg Tablet PO Not Given DAILY [facility] Protocol Lorazepam 2 mg 04/11/25 09:39 Lorazepam 1 Mg Tablet PO Q6H PRN AGITATION Ondansetron HCl 4 mg 04/11/25 11:14 04/14/25 02:01 Ondansetron 4 Mg/2 Ml Vial IV 4 mg Q8H PRN PRN Administration NAUSEA/VOMITING Pantoprazole Sodium 40 mg 04/11/25 10:00 04/14/25 10:31 Pantoprazole Sodium 40 Mg Tablet PO Not Given DAILY [facility] Polyethylene Glycol 17 gm 04/11/25 10:00 04/14/25 10:31 Polyethylene Glycol 3350 17 Gm Packet PO Not Given DAILY BRIANA Propranolol HCl 80 mg 04/11/25 10:00 04/14/25 10:30 Propranolol [place] 80 Mg Capsule PO Not Given DAILY [facility] Protocol Quetiapine Fumarate 300 mg 04/11/25 22:00 04/14/25 10:31 Quetiapine 100 Mg Tablet PO Not Given BID BRIANA Senna/Docusate Sodium 2 tablet 04/11/25 11:14 Senna/Docusate Sodium 1 Tablet PO BID PRN PRN Constipation Senna/Docusate Sodium 2 tablet 04/12/25 10:00 04/14/25 10:31 Senna/Docusate Sodium 1 Tablet PO Not Given BID [facility] Sodium Chloride 10 - 40 ml 04/11/25 12:53 04/14/25 06:05 0.9% Saline Lock 10 Ml Syringe IV 10 ml UD PRN Administration SALINE FLUSH Vancomycin Protocol 1 lab 04/15/25 13:30 Vancomycin Trough/Random Due MC 04/15/25 15:30 DAILY [facility] Lab / Micro Data 04/14/25 05:18 04/14/25 05:18 Labs: Laboratory Results - last 24 hr 04/13/25 14:39: Vancomycin Trough 15.6 H 04/14/25 05:18: WBC 7.6, RBC 3.42 L, Hgb 9.2 L, Hct 31.6 L, MCV 92.4, MCH 26.9 L , MCHC 29.1 L, RDW Std Deviation 48.4 H, RDW Coeff of Eleanor 14.4, Plt Count 179, MPV 9.5, Immature Gran % (Auto) 3.300 H, Neut % (Auto) 84.1 H, Lymph % (Auto) 3.0 L, [place] % (Auto) 8.4, Eos % (Auto) 0.3, Baso % (Auto) 0.9, Absolute Neuts (auto) 6.4, Absolute Lymphs (auto) 0.23 L, Nucleated RBC % 0, Sodium 143, Potassium 3.9, Chloride 93 L, Carbon Dioxide 44.2 H, Anion Gap 6, BUN 6, C reatinine 0.49 L, Estim Creat Clear Calc 204.12, Est GFR (MDRD) Non-Af 121, BUN/Creatinine Ratio 11.9, Glucose 128 H, Calcium 9.2 Micro: Microbiology 04/11/25 07:42 Blood Culture (Wb) - Anticubital Left Blood Culture - Preliminary No growth in 48 hours. 04/11/25 07:30 Blood Culture (Wb) - Left Hand Blood Culture - Preliminary No growth in 48 hours. 04/11/25 08:11 Urine, Catheterized Urine Culture - Final Culture exhibits no growth. ABG Data ABG results: ABG 04/14/25 04/14/25 04/14/25 01:17 05:34 12:18 Specimen Type ART ART ART Sample Site R Radial L Radial L Radial pH 7.27 L 7.31 L 7.33 L Bicarbonate Actual 46.1 H 47.3 H 52.9 H Total CO2 49 > 50 > 50 Base Excess 19 H 21 H 27 H O2 Saturation 87 L 84 L 87 L O2 % 8.0 50.0 65.0 ABG pCO2 100.0 H* 93.9 H* 101.2 H* ABG pO2 65 L 57 L 62 L Fei Test Positive Negative Positive Respiration Rate 14 14 O2 Delivery Device HFNC BiPAP BiPAP Vent Mode Not entered Not entered avaps Tidal Volume 500.0 500.0 POC PEEP 10 5 Crit Call To/Read Back Yes Yes Yes Blood Gas Notified Whom Dr. Beck guillaume Blood Gas Notified Time 01:19:44 05:36:07 12:20:09 Imaging Radiology Impression Chest X-Ray 04/13/25 14:18 IMPRESSION: Improved aeration of both lungs. Reading Location: [id number] Assessment and Plan . Assessment and plan: A/P: #Acute hypoxemic respiratory failure #Sepsis #PNA, suspected aspiration #Adrenal insufficiency #Acute on chronic anemia #Learning disability #Schizoaffective disorder #COPD/asthma #HTN #Morbid obesity -back to requiring bipap; Vt 300 to 350 at time of my exam -ABGs noted; his serum bicarb was up to 44 this AM; this is well beyond the expected compensation for a pCO2 in the low to mid-50s -aucte metabolic alkalosis (on top of a compnesatory alkalsosi) can make CO2 retention worse; will give diamox x 1 -also possible he is simply failing current level of support; cont bipap to support minute ventilation/work of breathing -Cont broad spectrum emp IV Abx -Nebs +/- Mucomyst for bronchopulm hygiene -F/U repeat ST eval given concern for on-going dysphagia/aspiration if he can be liberated from bipap -Cont home fludrocortisone & hydrocortisone -Monitoring blood counts PO diet with ST precautions LMWH Guarded prognosis Critical Care Time: 50 minutes The entirety of this encounter was done via Telemedicine Physical Exam Narrative see below Subjective Subjective More lethargic today, ABgs have demonstrated pCO2 up into the 50s On bipap at the time of my exam, intermittently responsive
--- NOTE | 2025-04-14 14:06 | RAD_ITS ---
PROCEDURE: CHEST 1 VIEW (PORTABLE) 04/14/2025 REASON FOR EXAM: PNEUMONIA TECHNIQUE: Frontal view of the chest. COMPARISON: April 13 2025, April 11, 2025 FINDINGS: Hardware: EKG leads Heart: Enlarged Lungs: Mixed interstitial and airspace opacities/acinar opacities are present bilaterally. No dense consolidation seen. No pleural effusion or pneumothorax. Bones: The bones are unremarkable. RAD/Chest 1 View (Portable) IMPRESSION: Slight improvement in aeration in the right hilar region. Slight worsening in the left upper lobe. Edema and/or pneumonia are in the differential. Reading Location: [id number]
[2025-04-14] MEDS: AcetaZOLAMIDE 500 MG/10 ML Vial 250 MG IV (14:38)
--- NOTE | 2025-04-14 15:58 | CHAPLAIN ---
Type of Pastoral Visit ___ Initial Visit ___ Follow-up Visit ___ On-call Visit ___ General Patient Visit ___ Spiritual Assessment ___ Family Conference ___ Bereavement ___ Rapid Response ___ Code Blue ___ Other (describe below) Pastoral Care Referral From ___ Patient ___ Family ___ Nurse ___ Physician ___ Photoengraving Apprentice ___ Scrap Drop Engineer ___ Other (describe below) Sacrament/Intervention ___ Active listening ___ Anointing ___ Catholic ___ Bereavement ___ Communion ___ Jennifer exploration ___ ___ Life review ___ Prayer ___ Reconciliation ___ Sacrament of Sick ___ Supportive presence ___ Wedding ___ Other (describe below) Pastoral Comments patient is sleeping with a bi-pap machine and is not disturbed
[2025-04-14] MEDS: 0.9% Normal Saline (250mL Bag) 250 ML 15 ML IV (16:02)
[2025-04-14 16:12] LABS: Allen Test Positive; Base Excess 23 mmol/L (-2 to +2); FI02 65.0; PEEP 10; PO2 79 mmHG (75-100); RR 16; SITE L Radial; SO2 94 % (94-98)
[2025-04-14] MEDS: dexMEDEtomidine 400 MCG in 0.9% Normal Saline (100mL Bag) 96 ML 15.4 MCG CONT INF (19:12)
[2025-04-14] MEDS: Divalproex Sodium 125 MG SPRINKLE 250 MG PO (22:24)
[2025-04-14] MEDS: Senna/Docusate Sodium 1 Tablet 2 TABLET PO (22:26)
[2025-04-14 22:37] LABS: Base Excess 22 mmol/L (-2 to +2); FI02 65.0; PEEP 10; PO2 112 mmHG (75-100); RR 16; SITE L Radial; SO2 98 % (94-98)
[2025-04-14] MEDS: dexMEDEtomidine 400 MCG in 0.9% Normal Saline (100mL Bag) 96 ML 18.5 MCG CONT INF (23:54)
[2025-04-15] VITALS (37 sets, daily range): BP systolic 149–206; BP diastolic 79–117; PULSE 44–111; RESP 16–27; TEMP 36.1–36.8; O2SAT 90–100; BMI 45.9
[2025-04-15] MEDS: Cefepime HCl 2 GM in 0.9% Normal Saline (100mL MB+) 100 ML IV ×3 (05:08→22:14)
[2025-04-15] MEDS: dexMEDEtomidine 400 MCG in 0.9% Normal Saline (100mL Bag) 96 ML 18.5 MCG CONT INF (05:09)
[2025-04-15] MEDS: Acetylcysteine 800 MG/4 ML VIAL.NEB. INHALATION ×2 (07:06→16:48)
[2025-04-15 07:14] LABS: Anion Gap 6 (5-15); BUN 10 mg/dL (4-19); BUN/Creat Ratio 17.5 RATIO (10-20); Calcium,Total 9.1 mg/dL (7.6-11.0); Carbon Dioxide 38.2 mmol/L (21.0-32.0); Chloride 96 mmol/L (98-108); Estimated Creatinine Clearance 174.14 ml/min (50-250); Glucose 129 mg/dL (70-99); Potassium 3.6 mmol/L (3.3-5.1)
[2025-04-15] MEDS: Vancomycin HCl 1,250 MG in 0.9% Normal Saline (250mL Bag) 250 ML 167 MG IV (08:16)
[2025-04-15 08:31] LABS: Hematocrit 30.7 % (40-54); Hemoglobin 9.3 g/dL (13.0-16.5); Immature Granulocytes Count 0.080 X10^3/uL (0.0-0.0); Mean Corp Hgb Conc 30.3 g/dL (32-36); Mean Corpuscular Volume 90.6 fL (80-94); Mean Platelet Vol. 9.9 fl (6.2-12.0); NRBC Flagged by Analyzer 0 % (0-5); POSITIVE COUNT YES; POSITIVE DIFFERENTIAL YES; Platelet Count 182 K/mm3 (150-450); RBC Distribution Width CV 14.3 % (11.6-14.6); RBC Distribution Width SD 47.1 fl (35.1-43.9); Red Blood Count 3.39 M/mm3 (4.6-6.2); White Blood Count 4.5 K/mm3 (4.4-11.0)
[2025-04-15 09:03] LABS: Differential Indicated SCAN CRITERIA MET
[2025-04-15 09:42] LABS: Comment AVAPS; FI02 40.0; PEEP 10; RR 16; SITE L Radial; VBG BASE EXCESS 21 mmol/L (-1.0-3.5); VBG PO2 33 mmHg (25-40); VBG SO2 64 % (50-70); VBG TCO2 47 mmol/L (23-33)
[2025-04-15] MEDS: Fluticasone 0.05% 1 SPRAY NASAL.SRY NASAL (10:39)
[2025-04-15] MEDS: 0.9% Saline Lock 10 ML Syringe IV ×4 (10:39→22:19)
[2025-04-15] MEDS: Azithromycin 500 MG in 0.9% Normal Saline (250mL Bag) 250 ML 250 MG IV (10:40)
[2025-04-15] MEDS: CHLORHEXIDINE GLUC 2% CLOTH 1 EACH TOWELETTE TOPICAL (10:40)
[2025-04-15] MEDS: dexMEDEtomidine 400 MCG in 0.9% Normal Saline (100mL Bag) 96 ML 27.7 MCG CONT INF (11:18)
[2025-04-15] MEDS: AcetaZOLAMIDE 500 MG/10 ML Vial 250 MG IV ×2 (11:33→22:37)
--- NOTE | 2025-04-15 12:35 | CHAPLAIN ---
Type of Pastoral Visit ___ Initial Visit ___ Follow-up Visit ___ On-call Visit ___ General Patient Visit ___ Spiritual Assessment ___ Family Conference ___ Bereavement ___ Rapid Response ___ Code Blue ___ Other (describe below) Pastoral Care Referral From ___ Patient ___ Family ___ Nurse ___ Physician ___ Assistant Site Manager ___ Therapeutic Activities Services Worker ___ Other (describe below) Sacrament/Intervention ___ Active listening ___ Anointing ___ Hoahaoism ___ Bereavement ___ Communion ___ Jennifer exploration ___ ___ Life review ___ Prayer ___ Reconciliation ___ Sacrament of Sick ___ Supportive presence ___ Wedding ___ Other (describe below) Pastoral Comments patient is back in ICU and is on a Bi-Pap without ability to speak; pt remains unavailable for personal contact from beginning of the week
--- NOTE | 2025-04-15 12:38 | PCM.PN.TICU ---
Objective Data Objective Data Vital Signs: Vital Signs Last response Temperature 36.1 C L 04/15/25 08:00 Temperature Source Temporal 04/15/25 08:00 Pulse Rate 56 L 04/15/25 10:17 Pulse Strength Weak (1+) 04/14/25 19:49 Respiratory Rate 20 H 04/15/25 08:00 Respiratory Effort Normal 04/15/25 04:00 Respiratory Depth Normal 04/15/25 04:00 Respiratory Pattern Normal 04/15/25 07:07 Blood Pressure 173/98 H 04/15/25 10:17 Blood Pressure Mean 127 04/15/25 08:00 Blood Pressure Source Monitor 04/15/25 08:00 Blood Pressure Position Semi-Fowlers 04/15/25 08:00 Blood Pressure Location Left Forearm 04/15/25 08:00 Pulse Ox 98 04/15/25 08:00 Oxygen Delivery Method Bi-pap 04/15/25 08:00 Oxygen Flow Rate (L/min) 2 04/15/25 04:00 Fraction of Inspired Oxygen (FIO2) 40 04/15/25 08:00 EtCo2 - Document during CPR and with ROSC 65 04/14/25 12:07 I&O: I&O Last 24 Hours 04/14/25 04/15/25 04/15/25 23:59 11:59 23:59 Intake Total 855.79 / 1507.64 736.00 / 736.00 Output Total 2550 / 3000 Balance -1694.21 / -1492.36 736.00 / 736.00 I&O: Total Stay 04/11/25 07:13 thru 04/15/25 10:00 Intake Total 26310.79 Output Total 7175 Balance 4610.79 Current Meds Ordered / Administered: Current meds ordered / Administered Generic Name Dose Route Start Last Admin Trade Name Freq PRN Reason Stop Dose Admin Acetaminophen 650 mg 04/12/25 08:29 Acetaminophen 325 Mg Tablet PO Q4H PRN fever or pain 1-10 Acetazolamide 250 mg 04/15/25 10:00 04/15/25 11:33 Acetazolamide 500 Mg/10 Ml Vial IV 04/15/25 22:01 250 mg BID BRIANA Administration Acetylcysteine 800 mg 04/13/25 11:00 04/15/25 07:06 Acetylcysteine 800 Mg/4 Ml Vial.Neb. INHALATION 800 mg BID.RT BRIANA Administration Albuterol Sulfate 2.5 mg 04/11/25 11:14 Albuterol 2.5 Mg/3 Ml Vial.Neb. INHALATION Q2H PRN PRN SOB &/OR WHEEZING Albuterol/Ipratropium 3 ml 04/14/25 14:00 04/15/25 07:06 Ipratropium/Albuterol Sulfate 3 Ml Ampul.Neb INHALATION 3 ml Q6H.RT BRIANA Administration Amlodipine Besylate 5 mg 04/12/25 10:00 04/15/25 10:34 Amlodipine 5 Mg Tablet PO Not Given DAILY [facility] Protocol Aspirin 81 mg 04/12/25 08:00 04/15/25 08:22 Aspirin E.C. 81 Mg Tablet PO Not Given BREAKFAST [facility] Benztropine Mesylate 1 mg 04/11/25 10:00 04/15/25 10:33 Benztropine 2 Mg Tablet PO Not Given BID [facility] Calcium Carbonate 500 mg 04/11/25 14:00 04/15/25 05:40 Calcium (Elemental) 500 Mg Tablet PO Not Given TID [facility] Chlorhexidine Gluconate 1 each 04/15/25 10:00 04/15/25 10:40 Chlorhexidine Gluc 2% Cloth 1 Each [place] TOPICAL 1 each DAILY [facility] Administration Cholecalciferol 50 mcg 04/11/25 10:00 04/15/25 10:34 Cholecalciferol (Vit D3) 25 Mcg Tablet (1,000 Units) PO Not Given DAILY [facility] Cyanocobalamin 1,000 mcg 04/13/25 10:00 04/13/25 13:02 Cyanocobalamin 500 Mcg Tablet PO Not Given We@1000 [facility] Divalproex Sodium 250 mg 04/11/25 14:00 04/15/25 05:27 Divalproex Sodium 125 Mg Sprinkle PO Not Given Q8 [facility] Enoxaparin Sodium 40 mg 04/11/25 11:14 04/15/25 10:39 Enoxaparin 40 Mg/0.4 Ml Syringe SC 40 mg DAILY BRIANA Administration Escitalopram Oxalate 10 mg 04/11/25 10:00 04/15/25 10:34 Escitalopram Oxalate 10 Mg Tablet PO Not Given BID [facility] Ferrous Sulfate 325 mg 04/12/25 12:00 04/14/25 11:16 Ferrous Sulfate 325 Mg Tablet PO Not Given Q48@1200 [facility] Fludrocortisone Acetate 0.1 mg 04/11/25 10:00 04/15/25 10:33 Fludrocortisone Acetate 0.1 Mg Tablet PO Not Given DAILY [facility] Fluticasone Propionate 1 spray 04/11/25 10:00 04/15/25 10:39 Fluticasone 0.05% 1 [place] Nasal.Sry NASAL 1 spray DAILY B[facility] Administration Guaifenesin 10 ml 04/11/25 11:14 Guaifenesin 10 Ml Udc (200mg/10ml) PO Q4H PRN PRN COUGH Hydralazine HCl 10 mg 04/11/25 14:00 04/15/25 05:13 Hydralazine 10 Mg Tablet PO Not Given TID B[facility] Protocol Hydralazine HCl 10 mg 04/15/25 09:24 04/15/25 10:17 Hydralazine 20 Mg/Ml Vial IV 10 mg Q2H PRN PRN Administration SBP GREATER THAN 170 Protocol Hydrocortisone 15 mg 04/11/25 10:00 04/15/25 10:33 Hydrocortisone 10 Mg Tablet PO Not Given DAILY [facility] Vancomycin IV-PHARMACY TO DOSE 500 mls @ 250 mls/hr 04/11/25 11:10 1 each/ Sodium Chloride IV X1 PRN Rx to Dose Protocol Azithromycin 500 mg/ Sodium 250 mls @ 250 mls/hr 04/12/25 10:00 04/15/25 10:40 Chloride IV 04/17/25 10:01 250 mls/hr Q24 BRIANA Administration Cefepime HCl 2 gm/ Sodium 100 mls @ 200 mls/hr 04/11/25 14:00 04/15/25 05:40 Chloride IV 04/18/25 14:01 Infused Q8 BRIANA Infusion Sodium Chloride 250 mls @ 15 mls/hr 04/11/25 12:53 04/15/25 05:04 IV 0 mls/hr .[id number] PRN Infusion Saline Flush Sodium Chloride 250 mls @ 15 mls/hr 04/11/25 12:53 IV .[id number] PRN Additional IVPB Infusion Vancomycin HCl 1,250 mg/ 275 mls @ 167 mls/hr 04/12/25 15:00 04/15/25 08:16 Sodium Chloride IV 167 mls/hr Q8H BRIANA Administration Dexmedetomidine HCl 400 mcg/ 100 mls @ 15.375 mls/hr 04/14/25 16:30 04/15/25 11:18 Sodium Chloride CONT INF 0.9 mcg/kg/hr .Q6H31M BRIANA 27.7 mls/hr Protocol Administration 0.5 MCG/KG/HR Lisinopril 20 mg 04/12/25 10:00 04/15/25 10:35 Lisinopril 20 Mg Tablet PO Not Given DAILY [facility] Protocol Lorazepam 2 mg 04/11/25 09:39 Lorazepam 1 Mg Tablet PO Q6H PRN AGITATION Ondansetron HCl 4 mg 04/11/25 11:14 04/14/25 02:01 Ondansetron 4 Mg/2 Ml Vial IV 4 mg Q8H PRN PRN Administration NAUSEA/VOMITING Pantoprazole Sodium 40 mg 04/11/25 10:00 04/15/25 10:34 Pantoprazole Sodium 40 Mg Tablet PO Not Given DAILY [facility] Polyethylene Glycol 17 gm 04/11/25 10:00 04/15/25 10:34 Polyethylene Glycol 3350 17 Gm Packet PO Not Given DAILY [facility] Propranolol HCl 80 mg 04/11/25 10:00 04/15/25 10:33 Propranolol La 80 Mg Capsule PO Not Given DAILY [facility] Protocol Quetiapine Fumarate 300 mg 04/11/25 22:00 04/15/25 10:34 Quetiapine 100 Mg Tablet PO Not Given BID BRIANA Senna/Docusate Sodium 2 tablet 04/11/25 11:14 Senna/Docusate Sodium 1 Tablet PO BID PRN PRN Constipation Senna/Docusate Sodium 2 tablet 04/12/25 10:00 04/15/25 10:34 Senna/Docusate Sodium 1 Tablet PO Not Given BID [facility] Sodium Chloride 10 - 40 ml 04/11/25 12:53 04/15/25 11:37 0.9% Saline Lock 10 Ml Syringe IV 10 ml UD PRN Administration SALINE FLUSH Vancomycin Protocol 1 lab 04/15/25 13:30 Vancomycin Trough/Random Due MC 04/15/25 15:30 DAILY [facility] Lab / Micro Data 04/15/25 08:06 04/15/25 06:29 Labs: Laboratory Results - last 24 hr 04/15/25 06:29: WBC Cancelled, Corrected WBC Cancelled, RBC Cancelled, Hgb Cancelled, Hct Cancelled, MCV Cancelled, MCH Cancelled, MCHC Cancelled, RDW Std Deviation Cancelled, RDW Coeff of Eleanor Cancelled, Plt Count Cancelled, MPV Cancelled, Immature Gran % (Auto) Cancelled, Neut % (Auto) Cancelled, Lymph % (Auto) Cancelled, Kendall % (Auto) Cancelled, Eos % (Auto) Cancelled, Baso % (Auto) Cancelled, Absolute Neuts (auto) Cancelled, Absolute Lymphs (auto) Cancelled, Total Counted Cancelled, Neutrophils % (Manual) Cancelled, Band Neutrophils % Cancelled, Lymphocytes % (Manual) Cancelled, Monocytes % (Manual) Cancelled, Eosinophils % (Manual) Cancelled, Basophils % (Manual) Cancelled, Metamyelocytes % Cancelled, Myelocytes % Cancelled, Promyelocytes % Cancelled, Blast Cells % Cancelled, Plasma Cell % (Manual) Cancelled, Other Cells % Cancelled, Nucleated RBC % Cancelled, Nucleated RBCs/100 WBC Cancelled, Differential Comment Cancelled, Diff Path Review Cancelled, Hypersegmented Neuts Cancelled, Atypical Lymphocytes Cancelled, Reactive Lymphocytes Cancelled, Smudge Cells Cancelled, Toxic Granulation Cancelled, Toxic Vacuolation Cancelled, Dohle Bodies Cancelled, Marisol Rods Cancelled, Platelet Estimate Cancelled, Plt Morphology Comment Cancelled, RBC Morphology Cancelled 04/15/25 06:29: RBC Morphology Cancelled, Polychromasia Cancelled, Hypochromasia Cancelled, Basophilic Stippling Cancelled, Anisocytosis Cancelled, Microcytosis Cancelled, Macrocytosis Cancelled, Spherocytes Cancelled, Sickle Cells Cancelled, Target Cells Cancelled, Tear Drop Cells Cancelled, Ovalocytes Cancelled, Stomatocytes Cancelled, [place] Bodies Cancelled, Eliu Cells Cancelled, Bite Cells Cancelled, Crenated Cell Cancelled, Acanthocytes (Spur) Cancelled, Rouleaux Cancelled, Schistocytes Cancelled, Sodium 141, Potassium 3.6, Chloride 96 L, Carbon Dioxide 38.2 H, Anion Gap 6, BUN 10, Creatinine 0.57 L, Estim Creat Clear Calc 174.14, Est GFR (MDRD) Non-Af 116, BUN/Creatinine Ratio 17.5, Glucose 129 H, Calcium 9.1 04/15/25 08:06: WBC 4.5, RBC 3.39 L, Hgb 9.3 L, Hct 30.7 L, MCV 90.6, MCH 27.4, MCHC 30.3 L, RDW Std Deviation 47.1 H, RDW Coeff of Eleanor 14.3, Plt Count 182, MPV 9.9, Immature Gran % (Auto) 1.800 H, Neut % (Auto) 71.0 H, Lymph % (Auto) 8.6 L, Kendall % (Auto) 15.9 H, Eos % (Auto) 2.0, Baso % (Auto) 0.7, Absolute Neuts (auto) 3.2, Absolute Lymphs (auto) 0.39 L, Nucleated RBC % 0 Micro: Microbiology 04/11/25 07:42 Blood Culture (Wb) - Anticubital Left Blood Culture - Preliminary No growth in 48 hours. 04/11/25 07:30 Blood Culture (Wb) - Left Hand Blood Culture - Preliminary No growth in 48 hours. 04/11/25 08:11 Urine, Catheterized Urine Culture - Final Culture exhibits no growth. ABG Data ABG results: ABG 04/14/25 04/14/25 04/15/25 16:05 22:32 09:37 Specimen Type ART ART GIOVANY Sample Site L Radial L Radial L Radial pH 7.34 L 7.43 Bicarbonate Actual 48.9 H 46.4 H Total CO2 > 50 49 Base Excess 23 H 22 H O2 Saturation 94 98 O2 % 65.0 65.0 40.0 ABG pCO2 90.9 H* 69.3 H* ABG pO2 79 112 H Fei Test Positive N/A VBG pH 7.47 H VBG pO2 33 VBG HCO3 45 H VBG Total CO2 47 H VBG O2 Sat (Calc) 64 VBG Base Excess 21 H POC Mix VBG pCO2 Pt Tmp 61.1 H Respiration Rate 16 16 16 O2 Delivery Device BiPAP BiPAP BiPAP Vent Mode avaps Not entered Tidal Volume 500.0 500.0 500.0 POC PEEP 10 10 10 Crit Call To/Read Back Yes Yes Blood Gas Notified Whom aundrea Perry CNP Blood Gas Notified Time 16:07:24 22:33:53 Clinical Comments [facility] Imaging Radiology Impression Chest X-Ray 04/14/25 14:06 IMPRESSION: Slight improvement in aeration in the right hilar region. Slight worsening in the left upper lobe. Edema and/or pneumonia are in the differential. Reading Location: [id number] Assessment and Plan . Assessment and plan: A/P: #Acute hypoxemic respiratory failure #Sepsis #PNA, suspected aspiration #Adrenal insufficiency #Acute on chronic anemia #Learning disability #Schizoaffective disorder #COPD/asthma #HTN #Morbid obesity -Vt on bipap improved; pCO2 improved steadily -breaks from bipap as tolerated -serum bicarb was 44 on 04/14; back into the high 30s on 04/15 after a dose of diamox; will give diamox x 2 today (last 2 doses in the hospital) and moving forward should be able to use loop diuretic as needed -Cont broad spectrum emp IV Abx -Nebs +/- Mucomyst for bronchopulm hygiene -ST to re-assess when he is off bipap -Cont home fludrocortisone & hydrocortisone -Monitoring blood counts PO diet with ST precautions once he is off bipap LMWH Guarded prognosis Critical Care Time: 50 minutes The entirety of this encounter was done via Telemedicine Physical Exam Narrative see below Const Constitutional Narrative: Morbidly obese. Resting comfortably in bed. HEENT normocephalic and head/scalp atraumatic Neck supple General: trachea midline Chest inspection of chest normal Resp normal respiratory effort and no use of accessory muscles Effort and Inspection: tachypneic Auscultation: diminished lung sounds Cardio regular rate, regular rhythm, S1 normal heart sound and S2 normal heart sound Rate: tachycardic GI normal to inspection, nondistended, normoactive bowel sounds Extremity no clubbing, cyanosis or edema Skin no rashes or lesions noted Neuro CN's II-XII intact bilaterally, moves all extremities and no focal motor deficits Psych Mood & Affect: flat affect Subjective Subjective Moved to ICU overnight. Remains on bipap. Vt 400 to 500. Interacts with staff sporadically.
--- NOTE | 2025-04-15 14:54 | ST.MBS ---
Modified Barium Swallow Patient Information Study Date: 04/15/25 Study Time: 14:00 Direct Billable Minutes: 98 Total Minutes procedure & reportin Diagnosis: PNA J18.9 Referring Physician: Buffy Kaplan Reason for Referral: Assess swallow function, assess risk for aspiration, and determine recommendations for any necessary dysphagia interventions. Medical History: 55-year-old male with a learning disability and schizoaffective disorder, residing in a care home, presented to the ED 04/11/2025 with shortness of breath and hypoxemia (SpO2 70s). History obtained was limited due to poor reliability. shelter staff reported recent emesis. On arrival, the patient was febrile, tachycardic, tachypneic, and hypoxemic, requiring nonrebreather oxygen. Chest imaging revealed worsening right middle and lower lobe consolidation with airspace disease consistent with alveolar filling (mucus, pus, or fluid). Labs notable for WBC 11 K/µL, Hgb 10.7 g/dL, Plt 219 K/µL, normal coagulation and chemistry panels, and normal lactate. Urinalysis was unremarkable. Clinical picture consistent with sepsis secondary to aspiration pneumonia. The patient was started on broad-spectrum antibiotics and transitioned to heated high-flow oxygen. He was admitted to a monitored bed for ongoing management. ST dysphagia evaluation warranted due to concern for aspiration pneumonia. Hx of dysphagia w/ MBSS 11/22/2024 revealing mild-moderate oropharyngeal dysphagia and recommending minced and moist textures / mildly thick liquids. BSE 04/11/2025 recommended minced and moist textures / mildly thick liquids w/ recommended repeat MBSS during acute stay. MBSS was scheduled 04/13/2025, but pt was too lethargic to participate. 04/14/2025 he was not appropriate as he was BiPAP dependent. 04/15/2025 he was cleared for participation in MBSS in the afternoon due to improved alertness and successful transition to nasal cannula. Of note, patient is bradycardic and hypertensive. Medical History (Updated 04/11/25 @ 11:[address] Cayetano Manzo MD) Pneumonia Esophageal obstruction Kidney disease Schizophrenia Depression Anxiety Open wound Abrasion Arthritis History of renal disease Dietary restriction Difficulty swallowing History of diverticulitis Heartburn Gastric reflux Non-smoker Aspiration pneumonia MRSA (methicillin resistant staph aureus) culture positive Acidosis, lactic GURJIT (acute kidney injury) Morbid obesity with BMI of 40.0-44.9, adult Intermittent explosive disorder Schizoaffective disorder Acute metabolic encephalopathy COPD (chronic obstructive pulmonary disease) Hypoxia Pneumonia Bradycardia Chronic anal fissure Cellulitis Adrenocortical insufficiency Anemia Schizo affective schizophrenia Legally blind Intermittent explosive disorder COPD (chronic obstructive pulmonary disease) Hypertension Asthma Gastroparesis Cyclical vomiting Thrombocythemia Hypocalcemia Anxiety Current Diet Ordered: NPO Mental Status: Impaired Respiratory Status: Oxygenating on 3L/M nasal cannula Penetration-Aspiration Scale Penetration-Aspiration Scale: OBJECTIVE ASSESSMENT OF SWALLOW FUNCTION (QUANTITATIVE – PER TRIAL): PENETRATION / ASPIRATION SCALE (VALERIO): 1 = does not enter airway 2 = enters airway/above vocal folds/ejected 3 = enters airway/above vocal folds/not ejected 4 = enters airway/contacts vocal folds/ejected 5 = enters airway/contacts vocal folds/not ejected 6 = enters airway/below vocal folds/ejected 7 = enters airway/below vocal folds/not ejected despite effort 8 = enters airway/below vocal folds/no effort VIDEOFLOROSCOPIC SCALE SCORE (VALERIO): Grade I = aspiration of material that has penetrated into the laryngeal vestibule, intact cough reflex Grade II = aspiration < 10 % of the bolus, intact cough reflex Grade III = aspiration of < 10 % of the bolus, reduced cough reflex or aspiration of > 10 % of the bolus, intact cough reflex Grade IV = aspiration of > 10 % of the bolus, reduced cough reflex Penetration-Aspiration Scale Score Pudding via teaspoon w/ patient tilting head back: Result: 1= does not enter airway Comment: Esophageal screen - Retention of pudding in the middle esophagus. Pudding via teaspoon w/ neutral head position: Result: 1= does not enter airway Comment: Esophageal screen (~2min following the trial) - Significant retention of barium pudding in the lower esophagus. Pudding via teaspoon w/ neutral head position Trial 2: Result: 2= enter airway/above vocal folds/ejected Comment: Esophageal screen (~2min following the trial) - Significant retention of barium pudding in the lower esophagus. Oral Phase Labial Seal: Escape beyond interlabial space; no extension beyond sven border Tongue Control During Bolus Hold: Posterior escape of less than half of bolus Bolus Transport/Lingual Motion: Repetitive/disorganized tongue motion Oral Residue: Residue collection on oral structures Pharyngeal Phase Initiation of Pharyngeal Swallow: Bolus head at posterior laryngeal surgace of epiglottis Soft Palate Elevation: Trace column of contrast/air between soft palate and pharyngeal wall Laryngeal Elevation: Comp. Superior move thyroid cart w/comp. apprx arytenoid cart-epig pet Anterior Hyoid Excursion: Partial anterior movement Epiglottic Movement: Partial inversion Laryngeal Vestibule Closure at Height of Swallow: Incomplete; narrow column of air/contrast in laryngeal vestibule Pharyngeal Stripping Wave: Present - diminished Pharyngoesophageal Segment Opening: Parital distension and partial duration; parital obstruction of flow Tongue Base Retraction: Narrow column of contrast between tongue base & post. pharyngeal wall Pharyngeal Residue: Collection of residue within or on pharyngeal structures Esophageal Phase Esophageal Clearance: Esophageal retention Diagnosis/Impression Diagnosis: Moderate oropharyngeal dysphagia R13.12; Esophageal dysphagia R13.14 MBS Impressions: Jose CORBETT, present for the MBSS. Trials were given conservatively due to the pt's current medical status (BP 195/95, HR ranging from mid 40s to mid 60s). Liquids were not offered due to FUNDRAISING OFFICER concerns for an aspiration event being detrimental to the patient. ARIC, Jose, agreed. FUNDRAISING OFFICER recommends IV hydration this weekend. Will repeat this MBSS next week w/ liquids if medical status has stabilized. The oral phase is primarily marked by... -Slowed, disorganized tongue motion for A-P transport. -Mild-moderate oral residues, which he mostly cleared w/ use of a second swallow in 1 of 3 trials. The pharyngeal phase is primarily marked by... -Poor motility d/t decreased TB retraction, pharyngeal stripping wave, and UES opening/duration of opening resulting in moderate pharyngeal residues. Cued pt for multiple, effortful swallows, but he had difficulty w/ comprehension and opened mouth for another bite despite FUNDRAISING OFFICER encouraging him to dry swallow. Pharyngeal residues increased his risk for post prandial aspiration. -Decreased airway closure due to decreased anterior hyoid excursion w/ laryngeal penetration of pudding. Pudding did fully eject during the swallow. No aspiration observed. The esophageal phase is primarily marked by... -Retention of pudding in the middle and lower esophagus. Recommendations Diet: NPO (Critical meds crushed in puree, head neutral position, frequent oral care) Recommend Repeat Modified Barium Swallow: Yes (-Repeat MBSS once pt's medical status has improved to re-assess swallow function and aspiration risk.) Need for Skilled Speech Therapy Services: Yes Comment: -Repeat MBSS once pt's medical status has improved to re-assess swallow function and aspiration risk. Hold po trials w/ current medical status. -Train the patient in oropharyngeal exercise program to improve pharyngeal motility and airway closure (CTAR, effortful swallows). Of note, pt has difficulty following some commands, such as use of multiple swallows during the MBSS. Education Completed: 1. Described result of evaluation. and 7. Pt requires further education on strategies & risks. Status Active ST Patient: Active Contact Information [facility] Speech Therapy:: Cristina Coburn M.A. [facility]-[employer] Speech-Language Pathologist [facility] [address] [place] [address] [email or web address] [phone]
[2025-04-15] MEDS: dexMEDEtomidine 400 MCG in 0.9% Normal Saline (100mL Bag) 96 ML 24.6 MCG CONT INF (15:26)
--- NOTE | 2025-04-15 15:51 | PCM.PROGNOTE ---
Subjective Subjective Patient seen and examined with his nurse by his bedside. Patient was very combative this morning and told his BiPAP mask and broke it. Patient was counseled that he needs a BiPAP mask because of apnea and eventually was agreeable to trialing it again. He had no other active complaints. Patient had to be held down by several nurses due to his combativeness. His blood pressure has been markedly elevated in the 190s systolic. He is n.p.o. because he failed swallow evaluation and speech is on board. IV hydralazine changed to Q2 as needed. Objective Data Objective Data Vital Signs: Vital Signs Temp Pulse Resp BP Pulse Ox O2 Del Method O2 Flow Rate 97.6 F L 52 L 20 H 192/94 H 100 Bi-pap 2.5 04/15/25 12:00 04/15/25 13:47 04/15/25 12:00 04/15/25 13:47 04/15/25 12:00 04/15/25 12:00 04/15/25 11:00 FiO2 40 04/15/25 12:00 Oxygen Flow Rate (L/min) 2.5 Oxygen Delivery Method Bi-pap Weight: 267 lb 10.259 oz Body Mass Index (BMI) 45.9 Intake & Output: Intake and Output for Last 24 Hours 04/13/25 04/14/25 04/15/25 23:59 23:59 23:59 Intake Total 1595 / 1595 1505.79 / 1507.64 1361.00 / 1361.00 Output Total 3350 / 3350 3000 / 3000 1800 / 1800 Balance -1755 / -1755 -1494.21 / -1492.36 -439.00 / -439.00 Lab / Micro Data 04/15/25 08:06 04/15/25 06:29 Labs: Laboratory Results - last 24 hr 04/15/25 06:29: WBC Cancelled, Corrected WBC Cancelled, RBC Cancelled, Hgb Cancelled, Hct Cancelled, MCV Cancelled, MCH Cancelled, MCHC Cancelled, RDW Std Deviation Cancelled, RDW Coeff of Eleanor Cancelled, Plt Count Cancelled, MPV Cancelled, Immature Gran % (Auto) Cancelled, Neut % (Auto) Cancelled, Lymph % (Auto) Cancelled, Miller % (Auto) Cancelled, Eos % (Auto) Cancelled, Baso % (Auto) Cancelled, Absolute Neuts (auto) Cancelled, Absolute Lymphs (auto) Cancelled, Total Counted Cancelled, Neutrophils % (Manual) Cancelled, Band Neutrophils % Cancelled, Lymphocytes % (Manual) Cancelled, Monocytes % (Manual) Cancelled, Eosinophils % (Manual) Cancelled, Basophils % (Manual) Cancelled, Metamyelocytes % Cancelled, Myelocytes % Cancelled, Promyelocytes % Cancelled, Blast Cells % Cancelled, Plasma Cell % (Manual) Cancelled, Other Cells % Cancelled, Nucleated RBC % Cancelled, Nucleated RBCs/100 WBC Cancelled, Differential Comment Cancelled, Diff Path Review Cancelled, Hypersegmented Neuts Cancelled, Atypical Lymphocytes Cancelled, Reactive Lymphocytes Cancelled, Smudge Cells Cancelled, Toxic Granulation Cancelled, Toxic Vacuolation Cancelled, Dohle Bodies Cancelled, Marisol Rods Cancelled, Platelet Estimate Cancelled, Plt Morphology Comment Cancelled, RBC Morphology Cancelled 04/15/25 06:29: RBC Morphology Cancelled, Polychromasia Cancelled, Hypochromasia Cancelled, Basophilic Stippling Cancelled, Anisocytosis Cancelled, Microcytosis Cancelled, Macrocytosis Cancelled, Spherocytes Cancelled, Sickle Cells Cancelled, Target Cells Cancelled, Tear Drop Cells Cancelled, Ovalocytes Cancelled, Stomatocytes Cancelled, [place] Bodies Cancelled, Eliu Cells Cancelled, Bite Cells Cancelled, Crenated Cell Cancelled, Acanthocytes (Spur) Cancelled, Rouleaux Cancelled, Schistocytes Cancelled, Sodium 141, Potassium 3.6, Chloride 96 L, Carbon Dioxide 38.2 H, Anion Gap 6, BUN 10, Creatinine 0.57 L, Estim Creat Clear Calc 174.14, Est GFR (MDRD) Non-Af 116, BUN/Creatinine Ratio 17.5, Glucose 129 H, Calcium 9.1 04/15/25 08:06: WBC 4.5, RBC 3.39 L, Hgb 9.3 L, Hct 30.7 L, MCV 90.6, MCH 27.4, MCHC 30.3 L, RDW Std Deviation 47.1 H, RDW Coeff of Eleanor 14.3, Plt Count 182, MPV 9.9, Immature Gran % (Auto) 1.800 H, Neut % (Auto) 71.0 H, Lymph % (Auto) 8.6 L, Miller % (Auto) 15.9 H, Eos % (Auto) 2.0, Baso % (Auto) 0.7, Absolute Neuts (auto) 3.2, Absolute Lymphs (auto) 0.39 L, Nucleated RBC % 0 Micro: Microbiology 04/11/25 07:42 Blood Culture (Wb) - Anticubital Left Blood Culture - Preliminary No growth in 48 hours. 04/11/25 07:30 Blood Culture (Wb) - Left Hand Blood Culture - Preliminary No growth in 48 hours. 04/11/25 08:11 Urine, Catheterized Urine Culture - Final Culture exhibits no growth. 04/11/25 19:33 Mucosa - Nasopharyngeal Coronavirus COVID-19 PCR - Final 04/11/25 08:11 Urine, Random Legionella Antigen - Final 04/11/25 08:11 Urine, Random Streptococcus pneumoniae Antigen (M - Final 04/11/25 12:40 Nasal Secretion MRSA (PCR) - Final Meth. resistant Staph. aureus 04/11/25 11:06 Mucosa - Nasopharyngeal Respiratory Panel (PCR) - Final 04/11/25 08:12 Mucosa - Nose SARS-CoV-2, Influenza & RSV (PCR) - Final 04/11/25 08:11 Urine Catheter - Catheter Legionella Antigen - Final 04/11/25 08:11 Urine Catheter - Catheter Streptococcus pneumoniae Antigen (M - Final ABG Data ABG results: ABG 04/14/25 04/14/25 04/15/25 16:05 22:32 09:37 Specimen Type ART ART GIOVANY Sample Site L Radial L Radial L Radial pH 7.34 L 7.43 Bicarbonate Actual 48.9 H 46.4 H Total CO2 > 50 49 Base Excess 23 H 22 H O2 Saturation 94 98 O2 % 65.0 65.0 40.0 ABG pCO2 90.9 H* 69.3 H* ABG pO2 79 112 H Fei Test Positive N/A VBG pH 7.47 H VBG pO2 33 VBG HCO3 45 H VBG Total CO2 47 H VBG O2 Sat (Calc) 64 VBG Base Excess 21 H POC Mix VBG pCO2 Pt Tmp 61.1 H Respiration Rate 16 16 16 O2 Delivery Device BiPAP BiPAP BiPAP Vent Mode avaps Not entered Tidal Volume 500.0 500.0 500.0 POC PEEP 10 10 10 Crit Call To/Read Back Yes Yes Blood Gas Notified Whom aundrea PerryDONNA Blood Gas Notified Time 16:07:24 22:33:53 Clinical Comments AVAPS Physical Exam Const Constitutional Narrative: Patient alert, combative and restless. HEENT normocephalic and head/scalp atraumatic HEENT Narrative: Patient visually impaired. Eyes EOMs intact bilaterally Neck supple and no JVD Lymph Lymphatic: no lymphedema noted Resp Resp Narrative: Moderately diminished breath sounds bibasilar. No wheezes or crackles. On oxygen by nasal cannula as he had just taken off from work and his BiPAP mask. Cardio regular rate, regular rhythm, S1 normal heart sound, S2 normal heart sound and no murmurs GI normal to inspection, nondistended, normoactive bowel sounds, soft to palpation and non-tender Extremity normal capillary refill General Extremity: no tenderness to palpation of joints or extremities Skin General Skin Exam: no breakdown Neuro no focal motor deficits Neuro Narrative: restless, combative, throwing his arms about. Motor Exam: general weakness Psych Psych Narrative: combative. Assessment & Plan Assessment/Plan (1) Severe sepsis: (2) Acute hypoxemic respiratory failure: (3) Pneumonia: PLAN: Plan #Acute hypoxic and hypercapnic respiratory failure due to aspiration pneumonia Patient on BiPAP but put off the BiPAP mask. Now on oxygen by nasal cannula. Concern for aspiration pneumonia. Speech therapy on board Breathing treatments bronchodilators. Titrate oxygen to maintain saturation above 90%. Patient counseled about importance of BiPAP and he is willing to tolerated and trial it again. Pulmonology on board. MRSA screen positive but respiratory and blood cultures are negative so far. Hypercapnia thought to be benzodiazepine use which resulted in respiratory depression. He did receive flumazenil and scheduled benzos discontinued. #Sepsis sepsis due to aspiration pneumonia: As above #Adrenal insufficiency: On fludrocortisone and hydrocortisone daily at home #Benign essential hypertension: BP meds held. Since patient is n.p.o. on account of dysphagia, will adjust BP meds to see which ones can be given via the ET tube Will give amlodipine, #History of schizoaffective disorder:on benztropine #COPD and asthma: Not in exacerbation. Breathing treatments bronchodilators. #Class III obesity: BMI is 47. Complicates acute care, expected recovery and prognosis. #DVT prophylaxis: Lovenox Charges/Coding Visit Charges Inpatient E&M: 40602 Subs Hosp L3
[2025-04-15] MEDS: Vancomycin Trough/Random Due 1 LAB MC (16:20)
[2025-04-15 18:02] LABS: Anion Gap 0 (5-15); BUN 10 mg/dL (4-19); BUN/Creat Ratio 16.5 RATIO (10-20); Calcium,Total 8.0 mg/dL (7.6-11.0); Carbon Dioxide 30.2 mmol/L (21.0-32.0); Chloride 109 mmol/L (98-108); Estimated Creatinine Clearance 157.56 ml/min (50-250); Glucose 117 mg/dL (70-99); Potassium 2.9 mmol/L (3.3-5.1); Pro- Brain NATRIURETIC PEPTIDE 1699 pg/mL (<=900)
[2025-04-15 18:30] LABS: Vancomycin, Trough Level 12.9 ug/mL (5.0-15.0)
--- NOTE | 2025-04-15 18:41 | PCM.RX.CS ---
Consult Antibiotic Management Pharmacy has been consulted to manage selected antibiotic: Vancomycin Type of Intervention Type of Consult: Follow-up Prior Doses of Antibiotics Prior Doses of Antibiotics Received/Current Regimen: currently on vanc 1250mg IV q8h Labs Labs: Sodium 139 mmol/L (133-145) 04/15/25 16:15 Potassium 2.9 mmol/L (3.3-5.1) L 04/15/25 16:15 Chloride 109 mmol/L (98-108) H 04/15/25 16:15 Carbon Dioxide 30.2 mmol/L (21.0-32.0) 04/15/25 16:15 Anion Gap 0 (5-15) L 04/15/25 16:15 BUN 10 mg/dL (4-19) 04/15/25 16:15 Creatinine 0.63 mg/dL (0.70-1.20) L 04/15/25 16:15 Est GFR (MDRD) Non-Af 112 (>60) 04/15/25 16:15 BUN/Creatinine Ratio 16.5 RATIO (10-20) 04/15/25 16:15 Glucose 117 mg/dL (70-99) H 04/15/25 16:15 Vancomycin Trough 12.9 ug/mL (5.0-15.0) 04/15/25 16:15 Microbiology Microbiology: Microbiology 04/11/25 07:42 Blood Culture (Wb) - Anticubital Left Blood Culture - Preliminary No growth in 48 hours. 04/11/25 07:30 Blood Culture (Wb) - Left Hand Blood Culture - Preliminary No growth in 48 hours. 04/11/25 08:11 Urine, Catheterized Urine Culture - Final Culture exhibits no growth. 04/11/25 19:33 Mucosa - Nasopharyngeal Coronavirus COVID-19 PCR - Final 04/11/25 08:11 Urine, Random Legionella Antigen - Final 04/11/25 08:11 Urine, Random Streptococcus pneumoniae Antigen (M - Final 04/11/25 12:40 Nasal Secretion MRSA (PCR) - Final Meth. resistant Staph. aureus 04/11/25 11:06 Mucosa - Nasopharyngeal Respiratory Panel (PCR) - Final 04/11/25 08:12 Mucosa - Nose SARS-CoV-2, Influenza & RSV (PCR) - Final 04/11/25 08:11 Urine Catheter - Catheter Legionella Antigen - Final 04/11/25 08:11 Urine Catheter - Catheter Streptococcus pneumoniae Antigen (M - Final Dosing Weight Weight used for dosin.4 kg Estimated Creatinine Clearance Estimated Creatinine Clearance: 174 ml/min Goal Trough Goal Trough: 15-20 mcg/mL Pharmacy Plan for Drug Dosing Pharmacy Plan for Drug Dosing: VANCOMYCIN LEVEL RECEIVED Current Vancomycin Dose: 1250MG Q8H Number of Doses Received: 9 Vancomycin Level: 12.9 Hours Since Last Dose: 8 Renal Function: SCR 0.57, CRCL 174 Renal Function Trend: SCR WAS 0.49, 0.65, 0.99 PREVIOUS 3 DAYS Vancomycin Plan/Comments: TROUGH BELOW GOAL SO WILL INCREASE DOSE BACK TO 1500MG Q8H. REPEAT TROUGH BEFORE 4TH DOSE TOMORROW. Pending Level: 04/16 18:30 Pharmacy Service will continue to monitor and adjust dosing as required. Follow-Up Labs Follow-Up Labs: Trough: Vancomycin Date/Time Labs Ordered Labs to be done on [date and time ordered]: 04/16 18:30
--- NOTE | 2025-04-15 21:06 | NURSING ---
04/15/251929: patient was resting in bed with eyes closed at 1800 rounds, PER DIEM PHYSICAL THERAPIST reported to this nurse that patient was covered in blood and had pulled out his IV at 1820. upon assessment patient had pulled out LISA DL PICC line, LAC #20 IV and Rooney catheter with balloon intact. patient had bleeding from tip of penis, left arm and right arm. bleeding controlled with pressure to LISA PICC line site. patient unable to state why he had pulled out all of his lines. patient cleaned up by PER DIEM PHYSICAL THERAPIST and nurse and left in safe position in bed with call light in reach. Dr. Kaplan notified of above and stated she will notify secondary spanish teacher hospitalist to come see patient and address needs going forward. Dr. Solares reported to unit at this time to see patient.
[2025-04-15] MEDS: Vancomycin HCl 1,500 MG in 0.9% Normal Saline (500mL Bag) 500 ML 250 MG IV (21:56)
[2025-04-15] MEDS: dexMEDEtomidine 400 MCG in 0.9% Normal Saline (100mL Bag) 96 ML 15.4 MCG CONT INF (22:05)
[2025-04-15] MEDS: 0.9% Normal Saline (250mL Bag) 250 ML 15 ML IV (22:15)
[2025-04-16] VITALS (37 sets, daily range): BP systolic 99–199; BP diastolic 49–101; PULSE 44–109; RESP 13–30; TEMP 36–36.4; O2SAT 91–99; BMI 43.7
[2025-04-16] MEDS: CHLORHEXIDINE GLUC 2% CLOTH 1 EACH TOWELETTE TOPICAL (01:37)
--- NOTE | 2025-04-16 01:44 | NURSING ---
PT off the bipap, pt states he is nauseas and has been coughing a lot. PT keeps saying that he is going to "throw up". PRN Cecelia given.
[2025-04-16] MEDS: Vancomycin HCl 1,500 MG in 0.9% Normal Saline (500mL Bag) 500 ML 250 MG IV ×2 (03:39→11:05)
[2025-04-16] MEDS: dexMEDEtomidine 400 MCG in 0.9% Normal Saline (100mL Bag) 96 ML 21.5 MCG CONT INF (03:41)
[2025-04-16 04:14] LABS: Hematocrit 30.6 % (40-54); Hemoglobin 9.3 g/dL (13.0-16.5); Immature Granulocytes Count 0.110 X10^3/uL (0.0-0.0); Mean Corp Hgb Conc 30.4 g/dL (32-36); Mean Corpuscular Volume 87.2 fL (80-94); Mean Platelet Vol. 9.3 fl (6.2-12.0); NRBC Flagged by Analyzer 0 % (0-5); POSITIVE DIFFERENTIAL YES; Platelet Count 194 K/mm3 (150-450); RBC Distribution Width CV 14.6 % (11.6-14.6); RBC Distribution Width SD 46.8 fl (35.1-43.9); Red Blood Count 3.51 M/mm3 (4.6-6.2); White Blood Count 6.5 K/mm3 (4.4-11.0)
--- NOTE | 2025-04-16 05:40 | RAD_ITS ---
PROCEDURE: CHEST 1 VIEW (PORTABLE) 04/16/2025 REASON FOR EXAM: DYSPNEA TECHNIQUE: Frontal view of the chest. COMPARISON: 04/14/2025. FINDINGS: Right PICC line is in good position with its tip in the superior vena cava. Mild decrease in pulmonary venous congestion. Decreased left pleural effusion. Decreased passive atelectatic airspace disease of the left lower lobe. Enlarged cardiac silhouette. Normal mediastinum and jovany. Normal visualized pulmonary arteries. Atheromatous plaques of the visualized aortic arch and descending thoracic aorta. Diffuse spondylosis of the visualized thoracic spine. Normal visualized ribs, clavicles. Degenerative joint disease. There is no demonstrated abnormality of the visualized soft tissue structures of the upper abdomen. RAD/Chest 1 View (Portable) IMPRESSION: Right PICC line is in good position with its tip in the superior vena cava. Mild decrease in pulmonary venous congestion. Decreased left pleural effusion. Decreased passive atelectatic airspace disease of the left lower lobe. Enlarged cardiac silhouette. [facility]
--- NOTE | 2025-04-16 06:19 | NURSING ---
Patient resting comfortably on bipap after being agitated previously. This RN elected to use ordered PRN hydralazine and not PO dt patient resting comfortably on bipap and aspiration precautions.
[2025-04-16 06:25] LABS: Anion Gap 10 (5-15); BUN 14 mg/dL (4-19); BUN/Creat Ratio 22.4 RATIO (10-20); Calcium,Total 8.5 mg/dL (7.6-11.0); Carbon Dioxide 30.1 mmol/L (21.0-32.0); Chloride 99 mmol/L (98-108); Estimated Creatinine Clearance 156.14 ml/min (50-250); Glucose 127 mg/dL (70-99); Potassium 3.0 mmol/L (3.3-5.1)
[2025-04-16] MEDS: Cefepime HCl 2 GM in 0.9% Normal Saline (100mL MB+) 100 ML IV ×3 (06:36→21:27)
[2025-04-16 07:34] LABS: Pro- Brain NATRIURETIC PEPTIDE 2097 pg/mL (<=900)
[2025-04-16] MEDS: Acetylcysteine 800 MG/4 ML VIAL.NEB. INHALATION ×2 (07:38→19:20)
[2025-04-16] MEDS: dexMEDEtomidine 400 MCG in 0.9% Normal Saline (100mL Bag) 96 ML 18.5 MCG CONT INF (08:37)
[2025-04-16] MEDS: Potassium Chloride 10mEq/100mL 10 MEQ/100 ML IV.SOLN. 100 MEQ IV BOLUS ×4 (08:48→13:40)
[2025-04-16] MEDS: Azithromycin 500 MG in 0.9% Normal Saline (250mL Bag) 250 ML 250 MG IV (10:13)
--- NOTE | 2025-04-16 11:10 | PCM.PROGNOTE ---
Subjective Subjective Patient seen and examined. He was on the BIPAP and per his nurse he had tolerated it overnight. He remains on precedex and the dose had to be increased to keep him well sedated. He has otherwise remained hemodynamically stable. BP has also improved and was down to 126/58 today. Objective Data Objective Data Vital Signs: Vital Signs Temp Pulse Resp BP Pulse Ox O2 Del Method O2 Flow Rate 98.2 F 65 23 H 126/58 H 97 Bi-pap 5 04/15/25 18:00 04/16/25 07:30 04/16/25 07:30 04/16/25 07:00 04/16/25 07:30 04/16/25 07:00 04/16/25 02:00 FiO2 40 04/16/25 07:30 Oxygen Flow Rate (L/min) 5 Oxygen Delivery Method Bi-pap Weight: 256 lb 2.834 oz Body Mass Index (BMI) 43.7 Intake & Output: Intake and Output for Last 24 Hours 04/14/25 04/15/25 04/16/25 23:59 23:59 23:59 Intake Total 1505.79 / 1507.64 1575.12 / 1590.52 1585.65 / 1585.65 Output Total 3000 / 3000 4600 / 4600 Balance -1494.21 / -1492.36 -3024.88 / -3009.48 1585.65 / 1585.65 Lab / Micro Data 04/16/25 03:39 04/16/25 03:39 Labs: Laboratory Results - last 24 hr 04/15/25 16:15: Sodium 139, Potassium 2.9 L, Chloride 109 H, Carbon Dioxide 30.2, Anion Gap 0 L, BUN 10, Creatinine 0.63 L, Estim Creat Clear Calc 157.56, Est GFR (MDRD) Non-Af 112, BUN/Creatinine Ratio 16.5, Glucose 117 H, Calcium 8.0, NT pro BNP II 1699 H, Vancomycin Trough 12.9 04/16/25 03:39: WBC 6.5, RBC 3.51 L, Hgb 9.3 L, Hct 30.6 L, MCV 87.2, MCH 26.5 L, MCHC 30.4 L, RDW Std Deviation 46.8 H, RDW Coeff of Eleanor 14.6, Plt Count 194, MPV 9.3, Immature Gran % (Auto) 1.700 H, Neut % (Auto) 76.4 H, Lymph % (Auto) 4.8 L, [place] % (Auto) 14.2 H, Eos % (Auto) 2.3, Baso % (Auto) 0.6, Absolute Neuts (auto) 4.9, Absolute Lymphs (auto) 0.31 L, Nucleated RBC % 0, Sodium 139, Potassium 3.0 L, Chloride 99, Carbon Dioxide 30.1, Anion Gap 10, BUN 14, Creatinine 0.62 L, Estim Creat Clear Calc 156.14, Est GFR (MDRD) Non-Af 113, BUN/Creatinine Ratio 22.4 H, Glucose 127 H, Calcium 8.5, NT pro BNP II 2097 H Micro: Microbiology 04/11/25 07:42 Blood Culture (Wb) - Anticubital Left Blood Culture - Final No growth in 5 days. 04/11/25 07:30 Blood Culture (Wb) - Left Hand Blood Culture - Final No growth in 5 days. 04/11/25 08:11 Urine, Catheterized Urine Culture - Final Culture exhibits no growth. 04/11/25 19:33 Mucosa - Nasopharyngeal Coronavirus COVID-19 PCR - Final 04/11/25 08:11 Urine, Random Legionella Antigen - Final 04/11/25 08:11 Urine, Random Streptococcus pneumoniae Antigen (M - Final 04/11/25 12:40 Nasal Secretion MRSA (PCR) - Final Meth. resistant Staph. aureus 04/11/25 11:06 Mucosa - Nasopharyngeal Respiratory Panel (PCR) - Final 04/11/25 08:12 Mucosa - Nose SARS-CoV-2, Influenza & RSV (PCR) - Final 04/11/25 08:11 Urine Catheter - Catheter Legionella Antigen - Final 04/11/25 08:11 Urine Catheter - Catheter Streptococcus pneumoniae Antigen (M - Final Radiography Diagnostic Testing: Radiology Impression Chest X-Ray 04/16/25 05:40 IMPRESSION: Right PICC line is in good position with its tip in the superior vena cava. Mild decrease in pulmonary venous congestion. Decreased left pleural effusion. Decreased passive atelectatic airspace disease of the left lower lobe. Enlarged cardiac silhouette. [facility] Physical Exam Const Constitutional Narrative: calm, sedated on precedex, cooperative. RASS score is 0. HEENT normocephalic and head/scalp atraumatic Eyes EOMs intact bilaterally Neck supple and no JVD Lymph Lymphatic: no lymphedema noted Resp Resp Narrative: Moderately diminished breath sounds bibasilar. No wheezes or crackles. on BIPAP Cardio regular rate, regular rhythm, S1 normal heart sound, S2 normal heart sound and no murmurs GI normal to inspection, nondistended, normoactive bowel sounds, soft to palpation and non-tender Extremity normal capillary refill General Extremity: no tenderness to palpation of joints or extremities Skin General Skin Exam: no breakdown Neuro no focal motor deficits Neuro Narrative: sedated on precedex. RASS score is 0 Motor Exam: general weakness Psych Psych Narrative: combative. Assessment & Plan Assessment/Plan (1) Severe sepsis: (2) Acute hypoxemic respiratory failure: (3) Pneumonia: PLAN: Plan #Acute hypoxic and hypercapnic respiratory failure due to aspiration pneumonia Patient on BiPAP today and tolerating it.. Now on oxygen by nasal cannula. Concern for aspiration pneumonia. Speech therapy on board Breathing treatments bronchodilators. Titrate oxygen to maintain saturation above 90%. Patient counseled about importance of BiPAP and he is willing to tolerated and trial it again. Pulmonology on board. MRSA screen positive but respiratory and blood cultures are negative so far. Hypercapnia thought to be benzodiazepine use which resulted in respiratory depression. He did receive flumazenil and scheduled benzos discontinued. #Sepsis sepsis due to aspiration pneumonia: As above #Adrenal insufficiency: On fludrocortisone and hydrocortisone daily at home #Benign essential hypertension: on PO amlodipine, hydralazine and lisinopril which are being crushed and given in puree sauce. on propranolol 40mg bid crushed and given in puree also #Hypokalemia: K is 3 today. Will replace and trend. #History of schizoaffective disorder:on benztropine #COPD and asthma: Not in exacerbation. Breathing treatments bronchodilators. #Class III obesity: BMI is 47. Complicates acute care, expected recovery and prognosis. #DVT prophylaxis: Lovenox Charges/Coding Visit Charges Inpatient E&M: 27216 Subs Hosp L3
[2025-04-16] MEDS: Fluticasone 0.05% 1 SPRAY NASAL.SRY NASAL (11:55)
[2025-04-16] MEDS: Divalproex Sodium 125 MG SPRINKLE 250 MG PO ×2 (13:43→21:34)
--- NOTE | 2025-04-16 14:44 | PCM.PN.TICU ---
Objective Data Objective Data Vital Signs: Vital Signs Last response Temperature 36.4 C L 04/16/25 14:00 Temperature Source Temporal 04/16/25 14:00 Pulse Rate 95 04/16/25 14:00 Pulse Strength Weak (1+) 04/14/25 19:49 Respiratory Rate 25 H 04/16/25 14:00 Respiratory Effort Normal, Non-Labored 04/16/25 12:00 Respiratory Depth Normal 04/16/25 12:00 Respiratory Pattern Normal 04/16/25 12:00 Blood Pressure 164/87 H 04/16/25 14:00 Blood Pressure Mean 112 04/16/25 14:00 Blood Pressure Source Monitor 04/16/25 14:00 Blood Pressure Position Semi-Fowlers 04/16/25 14:00 Blood Pressure Location Left Arm 04/16/25 14:00 Pulse Ox 95 04/16/25 14:00 Oxygen Delivery Method Nasal Cannula 04/16/25 14:00 Oxygen Flow Rate (L/min) 2 04/16/25 14:00 Fraction of Inspired Oxygen (FIO2) 30 04/16/25 10:50 EtCo2 - Document during CPR and with ROSC 65 04/14/25 12:07 I&O: I&O Last 24 Hours 04/15/25 04/16/25 04/16/25 23:59 11:59 23:59 Intake Total 314.12 / 1590.52 2054.20 / 2692.52 638.32 / 2692.52 Output Total 4600 / 4600 600 / 600 Balance -4285.88 / -3009.48 2054.20 / 2092.52 38.32 / 2092.52 I&O: Total Stay 04/11/25 07:13 thru 04/16/25 13:59 Intake Total 46474.43 Output Total 13790 Balance 2942.43 Current Meds Ordered / Administered: Current meds ordered / Administered Generic Name Dose Route Start Last Admin Trade Name Freq PRN Reason Stop Dose Admin Acetaminophen 650 mg 04/12/25 08:29 Acetaminophen 325 Mg Tablet PO Q4H PRN fever or pain 1-10 Acetylcysteine 800 mg 04/13/25 11:00 04/16/25 07:38 Acetylcysteine 800 Mg/4 Ml Vial.Neb. INHALATION 800 mg BID.RT BRIANA Administration Albuterol Sulfate 2.5 mg 04/11/25 11:14 Albuterol 2.5 Mg/3 Ml Vial.Neb. INHALATION Q2H PRN PRN SOB &/OR WHEEZING Albuterol/Ipratropium 3 ml 04/14/25 14:00 04/16/25 13:34 Ipratropium/Albuterol Sulfate 3 Ml Ampul.Neb INHALATION 3 ml Q6H.RT BRIANA Administration Amlodipine Besylate 5 mg 04/12/25 10:00 04/16/25 11:21 Amlodipine 5 Mg Tablet PO 5 mg DAILY BRIANA Administration Protocol Aspirin 81 mg 04/12/25 08:00 04/16/25 08:38 Aspirin E.C. 81 Mg Tablet PO Not Given BREAKFAST [facility] Benztropine Mesylate 1 mg 04/11/25 10:00 04/16/25 11:19 Benztropine 2 Mg Tablet PO 1 mg BID [facility] Administration Calcium Carbonate 500 mg 04/11/25 14:00 04/16/25 13:43 Calcium (Elemental) 500 Mg Tablet PO Not Given TID [facility] Chlorhexidine Gluconate 1 each 04/15/25 10:00 04/16/25 01:37 Chlorhexidine Gluc 2% Cloth 1 Each Towelette TOPICAL 1 each DAILY [facility] Administration Cholecalciferol 50 mcg 04/11/25 10:00 04/16/25 10:16 Cholecalciferol (Vit D3) 25 Mcg Tablet (1,000 Units) PO Not Given DAILY [facility] Cyanocobalamin 1,000 mcg 04/13/25 10:00 04/13/25 13:02 Cyanocobalamin 500 Mcg Tablet PO Not Given We@1000 [facility] Divalproex Sodium 250 mg 04/11/25 14:00 04/16/25 13:43 Divalproex Sodium 125 Mg Sprinkle PO 250 mg Q8 [facility] Administration Enoxaparin Sodium 40 mg 04/11/25 11:14 04/16/25 11:22 Enoxaparin 40 Mg/0.4 Ml Syringe SC 40 mg DAILY [facility] Administration Escitalopram Oxalate 10 mg 04/11/25 10:00 04/16/25 11:55 Escitalopram Oxalate 10 Mg Tablet PO Not Given BID BRIANA Ferrous Sulfate 325 mg 04/12/25 12:00 04/16/25 12:19 Ferrous Sulfate 325 Mg Tablet PO Not Given Q48@1200 [facility] Fludrocortisone Acetate 0.1 mg 04/11/25 10:00 04/16/25 11:55 Fludrocortisone Acetate 0.1 Mg Tablet PO Not Given DAILY B[facility] Fluticasone Propionate 1 spray 04/11/25 10:00 04/16/25 11:55 Fluticasone 0.05% 1 Ebro Nasal.Sry NASAL 1 spray DAILY BRIANA Administration Guaifenesin 10 ml 04/11/25 11:14 Guaifenesin 10 Ml Udc (200mg/10ml) PO Q4H PRN PRN COUGH Hydralazine HCl 10 mg 04/11/25 14:00 04/16/25 13:41 Hydralazine 10 Mg Tablet PO 10 mg TID BRIANA Administration Protocol Hydralazine HCl 10 mg 04/15/25 09:24 04/16/25 06:41 Hydralazine 20 Mg/Ml Vial IV 10 mg Q2H PRN PRN Administration SBP GREATER THAN 170 Protocol Hydrocortisone 15 mg 04/11/25 10:00 04/16/25 11:55 Hydrocortisone 10 Mg Tablet PO Not Given DAILY BRIANA Vancomycin IV-PHARMACY TO DOSE 500 mls @ 250 mls/hr 04/11/25 11:10 1 each/ Sodium Chloride IV X1 PRN Rx to Dose Protocol Azithromycin 500 mg/ Sodium 250 mls @ 250 mls/hr 04/12/25 10:00 04/16/25 11:58 Chloride IV 04/17/25 10:01 Infused Q24 BRIANA Infusion Cefepime HCl 2 gm/ Sodium 100 mls @ 200 mls/hr 04/11/25 14:00 04/16/25 13:44 Chloride IV 04/18/25 14:01 200 mls/hr Q8 BRIANA Administration Sodium Chloride 250 mls @ 15 mls/hr 04/11/25 12:53 04/16/25 11:58 IV 0 mls/hr .[id number] PRN Infusion Saline Flush Sodium Chloride 250 mls @ 15 mls/hr 04/11/25 12:53 IV .[id number] PRN Additional IVPB Infusion Dexmedetomidine HCl 400 mcg/ 100 mls @ 15.375 mls/hr 04/14/25 16:30 04/16/25 13:35 Sodium Chloride CONT INF 0 mcg/kg/hr .Q6H31M BRIANA 0 mls/hr Protocol Titration 0.5 MCG/KG/HR Vancomycin HCl 1,500 mg/ 530 mls @ 250 mls/hr 04/15/25 19:00 04/16/25 13:59 Sodium Chloride IV Infused Q8H BRIANA Infusion Lisinopril 20 mg 04/12/25 10:00 04/16/25 11:22 Lisinopril 20 Mg Tablet PO 20 mg DAILY BRIANA Administration Protocol Lorazepam 2 mg 04/11/25 09:39 Lorazepam 1 Mg Tablet PO Q6H PRN AGITATION Ondansetron HCl 4 mg 04/11/25 11:14 04/16/25 01:38 Ondansetron 4 Mg/2 Ml Vial IV 4 mg Q8H PRN PRN Administration NAUSEA/VOMITING Pantoprazole Sodium 40 mg 04/11/25 10:00 04/16/25 10:16 Pantoprazole Sodium 40 Mg Tablet PO Not Given DAILY [facility] Polyethylene Glycol 17 gm 04/11/25 10:00 04/16/25 10:16 Polyethylene Glycol 3350 17 Gm Packet PO Not Given DAILY BRIANA Propranolol HCl 40 mg 04/16/25 13:00 04/16/25 13:42 Propranolol 40 Mg Tablet PO 40 mg BID [facility] Administration Protocol Quetiapine Fumarate 300 mg 04/11/25 22:00 04/16/25 11:19 Quetiapine 100 Mg Tablet PO 300 mg BID BRIANA Administration Senna/Docusate Sodium 2 tablet 04/11/25 11:14 Senna/Docusate Sodium 1 Tablet PO BID PRN PRN Constipation Senna/Docusate Sodium 2 tablet 04/12/25 10:00 04/16/25 10:16 Senna/Docusate Sodium 1 Tablet PO Not Given BID [facility] Sodium Chloride 10 - 40 ml 04/11/25 12:53 04/15/25 22:19 0.9% Saline Lock 10 Ml Syringe IV 40 ml UD PRN Administration SALINE FLUSH Vancomycin Protocol 1 lab 04/16/25 17:30 Vancomycin Trough/Random Due MC 04/16/25 19:30 DAILY [facility] Lab / Micro Data Attestation: I reviewed the patient's lab results. 04/16/25 03:39 04/16/25 03:39 Labs: Laboratory Results - last 24 hr 04/15/25 16:15: Sodium 139, Potassium 2.9 L, Chloride 109 H, Carbon Dioxide 30.2, Anion Gap 0 L, BUN 10, Creatinine 0.63 L, Estim Creat Clear Calc 157.56, Est GFR (MDRD) Non-Af 112, BUN/Creatinine Ratio 16.5, Glucose 117 H, Calcium 8.0, NT pro BNP II 1699 H, Vancomycin Trough 12.9 04/16/25 03:39: WBC 6.5, RBC 3.51 L, Hgb 9.3 L, Hct 30.6 L, MCV 87.2, MCH 26.5 L, MCHC 30.4 L, RDW Std Deviation 46.8 H, RDW Coeff of Eleanor 14.6, Plt Count 194, MPV 9.3, Immature Gran % (Auto) 1.700 H, Neut % (Auto) 76.4 H, Lymph % (Auto) 4.8 L, [place] % (Auto) 14.2 H, Eos % (Auto) 2.3, Baso % (Auto) 0.6, Absolute Neuts (auto) 4.9, Absolute Lymphs (auto) 0.31 L, Nucleated RBC % 0, Sodium 139, Potassium 3.0 L, Chloride 99, Carbon Dioxide 30.1, Anion Gap 10, BUN 14, Creatinine 0.62 L, Estim Creat Clear Calc 156.14, Est GFR (MDRD) Non-Af 113, BUN/Creatinine Ratio 22.4 H, Glucose 127 H, Calcium 8.5, NT pro BNP II 2097 H Micro: Microbiology 04/11/25 07:42 Blood Culture (Wb) - Anticubital Left Blood Culture - Final No growth in 5 days. 04/11/25 07:30 Blood Culture (Wb) - Left Hand Blood Culture - Final No growth in 5 days. Imaging Radiology Impression Chest X-Ray 04/16/25 05:40 IMPRESSION: Right PICC line is in good position with its tip in the superior vena cava. Mild decrease in pulmonary venous congestion. Decreased left pleural effusion. Decreased passive atelectatic airspace disease of the left lower lobe. Enlarged cardiac silhouette. [facility] Assessment and Plan . Assessment and plan: [facility] Medical Records Department [address] [place] [id number] Progress Note - [employer] 04/15/25 1238 Objective Data Objective Data Vital Signs: Vital Signs Last response Temperature 36.1 C L 04/15/25 08:00 Temperature Source Temporal 04/15/25 08:00 Pulse Rate 56 L 04/15/25 10:17 Pulse Strength Weak (1+) 04/14/25 19:49 Respiratory Rate 20 H 04/15/25 08:00 Respiratory Effort Normal 04/15/25 04:00 Respiratory Depth Normal 04/15/25 04:00 Respiratory Pattern Normal 04/15/25 07:07 Blood Pressure 173/98 H 04/15/25 10:17 Blood Pressure Mean 127 04/15/25 08:00 Blood Pressure Source Monitor 04/15/25 08:00 Blood Pressure Position Semi-Fowlers 04/15/25 08:00 Blood Pressure Location Left Forearm 04/15/25 08:00 Pulse Ox 98 04/15/25 08:00 Oxygen Delivery Method Bi-pap 04/15/25 08:00 Oxygen Flow Rate (L/min) 2 04/15/25 04:00 Fraction of Inspired Oxygen (FIO2) 40 04/15/25 08:00 EtCo2 - Document during CPR and with ROSC 65 04/14/25 12:07 I&O: I&O Last 24 Hours 04/14/25 04/15/25 04/15/25 23:59 11:59 23:59 Intake Total 855.79 / 1507.64 736.00 / 736.00 Output Total 2550 / 3000 Balance -1694.21 / -1492.36 736.00 / 736.00 I&O: Total Stay 04/11/25 07:13 thru 04/15/25 10:00 Intake Total 24568.79 Output Total 7175 Balance 4610.79 Current Meds Ordered / Administered: Current meds ordered / Administered Generic Name Dose Route Start Last Admin Trade Name Freq PRN Reason Stop Dose Admin Acetaminophen 650 mg 04/12/25 08:29 Acetaminophen 325 Mg Tablet PO Q4H PRN fever or pain 1-10 Acetazolamide 250 mg 04/15/25 10:00 04/15/25 11:33 Acetazolamide 500 Mg/10 Ml Vial IV 04/15/25 22:01 250 mg BID BRIANA Administration Acetylcysteine 800 mg 04/13/25 11:00 04/15/25 07:06 Acetylcysteine 800 Mg/4 Ml Vial.Neb. INHALATION 800 mg BID.RT BRIANA Administration Albuterol Sulfate 2.5 mg 04/11/25 11:14 Albuterol 2.5 Mg/3 Ml Vial.Neb. INHALATION Q2H PRN PRN SOB &/OR WHEEZING Albuterol/Ipratropium 3 ml 04/14/25 14:00 04/15/25 07:06 Ipratropium/Albuterol Sulfate 3 Ml Ampul.Neb INHALATION 3 ml Q6H.RT BRIANA Administration Amlodipine Besylate 5 mg 04/12/25 10:00 04/15/25 10:34 Amlodipine 5 Mg Tablet PO Not Given DAILY [facility] Protocol Aspirin 81 mg 04/12/25 08:00 04/15/25 08:22 Aspirin E.C. 81 Mg Tablet PO Not Given BREAKFAST [facility] Benztropine Mesylate 1 mg 04/11/25 10:00 04/15/25 10:33 Benztropine 2 Mg Tablet PO Not Given BID [facility] Calcium Carbonate 500 mg 04/11/25 14:00 04/15/25 05:40 Calcium (Elemental) 500 Mg Tablet PO Not Given TID [facility] Chlorhexidine Gluconate 1 each 04/15/25 10:00 04/15/25 10:40 Chlorhexidine Gluc 2% Cloth 1 Each Towelette TOPICAL 1 each DAILY [facility] Administration Cholecalciferol 50 mcg 04/11/25 10:00 04/15/25 10:34 Cholecalciferol (Vit D3) 25 Mcg Tablet (1,000 Units) PO Not Given DAILY [facility] Cyanocobalamin 1,000 mcg 04/13/25 10:00 04/13/25 13:02 Cyanocobalamin 500 Mcg Tablet PO Not Given We@1000 [facility] Divalproex Sodium 250 mg 04/11/25 14:00 04/15/25 05:27 Divalproex Sodium 125 Mg Sprinkle PO Not Given Q8 [facility] Enoxaparin Sodium 40 mg 04/11/25 11:14 04/15/25 10:39 Enoxaparin 40 Mg/0.4 Ml Syringe SC 40 mg DAILY [facility] Administration Escitalopram Oxalate 10 mg 04/11/25 10:00 04/15/25 10:34 Escitalopram Oxalate 10 Mg Tablet PO Not Given BID [facility] Ferrous Sulfate 325 mg 04/12/25 12:00 04/14/25 11:16 Ferrous Sulfate 325 Mg Tablet PO Not Given Q48@1200 [facility] Fludrocortisone Acetate 0.1 mg 04/11/25 10:00 04/15/25 10:33 Fludrocortisone Acetate 0.1 Mg Tablet PO Not Given DAILY B[facility] Fluticasone Propionate 1 spray 04/11/25 10:00 04/15/25 10:39 Fluticasone 0.05% 1 Ebro Nasal.Sry NASAL 1 spray DAILY BRIANA Administration Guaifenesin 10 ml 04/11/25 11:14 Guaifenesin 10 Ml Udc (200mg/10ml) PO Q4H PRN PRN COUGH Hydralazine HCl 10 mg 04/11/25 14:00 04/15/25 05:13 Hydralazine 10 Mg Tablet PO Not Given TID BRIANA Protocol Hydralazine HCl 10 mg 04/15/25 09:24 04/15/25 10:17 Hydralazine 20 Mg/Ml Vial IV 10 mg Q2H PRN PRN Administration SBP GREATER THAN 170 Protocol Hydrocortisone 15 mg 04/11/25 10:00 04/15/25 10:33 Hydrocortisone 10 Mg Tablet PO Not Given DAILY BRIANA Vancomycin IV-PHARMACY TO DOSE 500 mls @ 250 mls/hr 04/11/25 11:10 1 each/ Sodium Chloride IV X1 PRN Rx to Dose Protocol Azithromycin 500 mg/ Sodium 250 mls @ 250 mls/hr 04/12/25 10:00 04/15/25 10:40 Chloride IV 04/17/25 10:01 250 mls/hr Q24 BRIANA Administration Cefepime HCl 2 gm/ Sodium 100 mls @ 200 mls/hr 04/11/25 14:00 04/15/25 05:40 Chloride IV 04/18/25 14:01 Infused Q8 BRIANA Infusion Sodium Chloride 250 mls @ 15 mls/hr 04/11/25 12:53 04/15/25 05:04 IV 0 mls/hr .[id number] PRN Infusion Saline Flush Sodium Chloride 250 mls @ 15 mls/hr 04/11/25 12:53 IV .[id number] PRN Additional IVPB Infusion Vancomycin HCl 1,250 mg/ 275 mls @ 167 mls/hr 04/12/25 15:00 04/15/25 08:16 Sodium Chloride IV 167 mls/hr Q8H BRIANA Administration Dexmedetomidine HCl 400 mcg/ 100 mls @ 15.375 mls/hr 04/14/25 16:30 04/15/25 11:18 Sodium Chloride CONT INF 0.9 mcg/kg/hr .Q6H31M BRIANA 27.7 mls/hr Protocol Administration 0.5 MCG/KG/HR Lisinopril 20 mg 04/12/25 10:00 04/15/25 10:35 Lisinopril 20 Mg Tablet PO Not Given DAILY [facility] Protocol Lorazepam 2 mg 04/11/25 09:39 Lorazepam 1 Mg Tablet PO Q6H PRN AGITATION Ondansetron HCl 4 mg 04/11/25 11:14 04/14/25 02:01 Ondansetron 4 Mg/2 Ml Vial IV 4 mg Q8H PRN PRN Administration NAUSEA/VOMITING Pantoprazole Sodium 40 mg 04/11/25 10:00 04/15/25 10:34 Pantoprazole Sodium 40 Mg Tablet PO Not Given DAILY [facility] Polyethylene Glycol 17 gm 04/11/25 10:00 04/15/25 10:34 Polyethylene Glycol 3350 17 Gm Packet PO Not Given DAILY [facility] Propranolol HCl 80 mg 04/11/25 10:00 04/15/25 10:33 Propranolol La 80 Mg Capsule PO Not Given DAILY [facility] Protocol Quetiapine Fumarate 300 mg 04/11/25 22:00 04/15/25 10:34 Quetiapine 100 Mg Tablet PO Not Given BID BRIANA Senna/Docusate Sodium 2 tablet 04/11/25 11:14 Senna/Docusate Sodium 1 Tablet PO BID PRN PRN Constipation Senna/Docusate Sodium 2 tablet 04/12/25 10:00 04/15/25 10:34 Senna/Docusate Sodium 1 Tablet PO Not Given BID [facility] Sodium Chloride 10 - 40 ml 04/11/25 12:53 04/15/25 11:37 0.9% Saline Lock 10 Ml Syringe IV 10 ml UD PRN Administration SALINE FLUSH Vancomycin Protocol 1 lab 04/15/25 13:30 Vancomycin Trough/Random Due MC 04/15/25 15:30 DAILY [facility] Lab / Micro Data 04/15/25 08:06 04/15/25 06:29 Labs: Laboratory Results - last 24 hr 04/15/25 06:29: WBC Cancelled, Corrected WBC Cancelled, RBC Cancelled, Hgb Cancelled, Hct Cancelled, MCV Cancelled, MCH Cancelled, MCHC Cancelled, RDW Std Deviation Cancelled, RDW Coeff of Eleanor Cancelled, Plt Count Cancelled, MPV Cancelled, Immature Gran % (Auto) Cancelled, Neut % (Auto) Cancelled, Lymph % (Auto) Cancelled, [place] % (Auto) Cancelled, Eos % (Auto) Cancelled, Baso % (Auto) Cancelled, Absolute Neuts (auto) Cancelled, Absolute Lymphs (auto) Cancelled, Total Counted Cancelled, Neutrophils % (Manual) Cancelled, Band Neutrophils % Cancelled, Lymphocytes % (Manual) Cancelled, Monocytes % (Manual) Cancelled, Eosinophils % (Manual) Cancelled, Basophils % (Manual) Cancelled, Metamyelocytes % Cancelled, Myelocytes % Cancelled, Promyelocytes % Cancelled, Blast Cells % Cancelled, Plasma Cell % (Manual) Cancelled, Other Cells % Cancelled, Nucleated RBC % Cancelled, Nucleated RBCs/100 WBC Cancelled, Differential Comment Cancelled, Diff Path Review Cancelled, Hypersegmented Neuts Cancelled, Atypical Lymphocytes Cancelled, Reactive Lymphocytes Cancelled, Smudge Cells Cancelled, Toxic Granulation Cancelled, Toxic Vacuolation Cancelled, Dohle Bodies Cancelled, Marisol Rods Cancelled, Platelet Estimate Cancelled, Plt Morphology Comment Cancelled, RBC Morphology Cancelled 04/15/25 06:29: RBC Morphology Cancelled, Polychromasia Cancelled, Hypochromasia Cancelled, Basophilic Stippling Cancelled, Anisocytosis Cancelled, Microcytosis Cancelled, Macrocytosis Cancelled, Spherocytes Cancelled, Sickle Cells Cancelled, Target Cells Cancelled, Tear Drop Cells Cancelled, Ovalocytes Cancelled, Stomatocytes Cancelled, [place] Bodies Cancelled, [place] Cells Cancelled, Bite Cells Cancelled, Crenated Cell Cancelled, Acanthocytes (Spur) Cancelled, Rouleaux Cancelled, Schistocytes Cancelled, Sodium 141, Potassium 3.6, Chloride 96 L, Carbon Dioxide 38.2 H, Anion Gap 6, BUN 10, Creatinine 0.57 L, Estim Creat Clear Calc 174.14, Est GFR (MDRD) Non-Af 116, BUN/Creatinine Ratio 17.5, Glucose 129 H, Calcium 9.1 04/15/25 08:06: WBC 4.5, RBC 3.39 L, Hgb 9.3 L, Hct 30.7 L, MCV 90.6, MCH 27.4, MCHC 30.3 L, RDW Std Deviation 47.1 H, RDW Coeff of Eleanor 14.3, Plt Count 182, MPV 9.9, Immature Gran % (Auto) 1.800 H, Neut % (Auto) 71.0 H, Lymph % (Auto) 8.6 L, [place] % (Auto) 15.9 H, Eos % (Auto) 2.0, Baso % (Auto) 0.7, Absolute Neuts (auto) 3.2, Absolute Lymphs (auto) 0.39 L, Nucleated RBC % 0 Micro: Microbiology 04/11/25 07:42 Blood Culture (Wb) - Anticubital Left Blood Culture - Preliminary No growth in 48 hours. 04/11/25 07:30 Blood Culture (Wb) - Left Hand Blood Culture - Preliminary No growth in 48 hours. 04/11/25 08:11 Urine, Catheterized Urine Culture - Final Culture exhibits no growth. ABG Data ABG results: ABG 04/14/25 04/14/25 04/15/25 16:05 22:32 09:37 Specimen Type ART ART GIOVANY Sample Site L Radial L Radial L Radial pH 7.34 L 7.43 Bicarbonate Actual 48.9 H 46.4 H Total CO2 > 50 49 Base Excess 23 H 22 H O2 Saturation 94 98 O2 % 65.0 65.0 40.0 ABG pCO2 90.9 H* 69.3 H* ABG pO2 79 112 H Fei Test Positive N/A VBG pH 7.47 H VBG pO2 33 VBG HCO3 45 H VBG Total CO2 47 H VBG O2 Sat (Calc) 64 VBG Base Excess 21 H POC Mix VBG pCO2 Pt Tmp 61.1 H Respiration Rate 16 16 16 O2 Delivery Device BiPAP BiPAP BiPAP Vent Mode avaps Not entered Tidal Volume 500.0 500.0 500.0 POC PEEP 10 10 10 Crit Call To/Read Back Yes Yes Blood Gas Notified Whom aundrea Perry CNP Blood Gas Notified Time 16:07:24 22:33:53 Clinical Comments [facility]APS Assessment and Plan . Assessment and plan: A/P: #Acute hypoxemic respiratory failure #Sepsis #PNA, suspected aspiration #Adrenal insufficiency #Acute on chronic anemia #Learning disability #Schizoaffective disorder #COPD/asthma #HTN #Morbid obesity -continue BiPAP with breaks - try and transition back to ativan from Precedex -Cont broad spectrum emp IV Abx -Nebs +/- Mucomyst for bronchopulm hygiene -ST to re-assess when he is off bipap -Cont home fludrocortisone & hydrocortisone -Monitoring blood counts PO diet with ST precautions once he is off bipap LMWH Guarded prognosis Critical Care Time: 50 minutes The entirety of this encounter was done via Telemedicine Physical Exam Const alert and oriented x3 General Appearance: cooperative Orientation / Consciousness: awake and oriented to person HEENT normocephalic and head/scalp atraumatic Eyes PERRL and EOMs intact bilaterally Neck full ROM Resp normal respiratory effort Subjective Subjective sedated with precedex, interacts appropriately
[2025-04-16] MEDS: 0.9% Saline Lock 10 ML Syringe IV (16:51)
[2025-04-16 18:39] LABS: Vancomycin, Trough Level 40.5 ug/mL (5.0-15.0)
[2025-04-16 19:43] LABS: Vancomycin, Random Level 38.8 ug/mL (0.0-15.0)
--- NOTE | 2025-04-16 19:58 | PCM.RX.CS ---
Consult Antibiotic Management Pharmacy has been consulted to manage selected antibiotic: Vancomycin Type of Intervention Type of Consult: Follow-up Suspected Infection Suspected Infection: Sepsis and Pneumonia Labs Labs: Sodium 139 mmol/L (133-145) 04/16/25 03:39 Potassium 3.0 mmol/L (3.3-5.1) L 04/16/25 03:39 Chloride 99 mmol/L (98-108) 04/16/25 03:39 Carbon Dioxide 30.1 mmol/L (21.0-32.0) 04/16/25 03:39 Anion Gap 10 (5-15) 04/16/25 03:39 BUN 14 mg/dL (4-19) 04/16/25 03:39 Creatinine 0.62 mg/dL (0.70-1.20) L 04/16/25 03:39 Est GFR (MDRD) Non-Af 113 (>60) 04/16/25 03:39 BUN/Creatinine Ratio 22.4 RATIO (10-20) H 04/16/25 03:39 Glucose 127 mg/dL (70-99) H 04/16/25 03:39 Vancomycin Trough 40.5 ug/mL (5.0-15.0) H 04/16/25 17:49 Random Vancomycin 38.8 ug/mL (0.0-15.0) H 04/16/25 19:00 Microbiology Microbiology: Microbiology 04/11/25 07:42 Blood Culture (Wb) - Anticubital Left Blood Culture - Final No growth in 5 days. 04/11/25 07:30 Blood Culture (Wb) - Left Hand Blood Culture - Final No growth in 5 days. 04/11/25 08:11 Urine, Catheterized Urine Culture - Final Culture exhibits no growth. 04/11/25 19:33 Mucosa - Nasopharyngeal Coronavirus COVID-19 PCR - Final 04/11/25 08:11 Urine, Random Legionella Antigen - Final 04/11/25 08:11 Urine, Random Streptococcus pneumoniae Antigen (M - Final 04/11/25 12:40 Nasal Secretion MRSA (PCR) - Final Meth. resistant Staph. aureus 04/11/25 11:06 Mucosa - Nasopharyngeal Respiratory Panel (PCR) - Final 04/11/25 08:12 Mucosa - Nose SARS-CoV-2, Influenza & RSV (PCR) - Final 04/11/25 08:11 Urine Catheter - Catheter Legionella Antigen - Final 04/11/25 08:11 Urine Catheter - Catheter Streptococcus pneumoniae Antigen (M - Final Goal Trough Goal Trough: 15-20 mcg/mL Pharmacy Plan for Drug Dosing Pharmacy Plan for Drug Dosing: VANCOMYCIN LEVEL RECEIVED Current Vancomycin Dose: 1500mg Q8H Number of Doses Received: 1500mg x3 Vancomycin Level: 38.8 Hours Since Last Dose: 8 Renal Function: sCr 0.62 Renal Function Trend: stable Lab/Micro: pending Vancomycin Plan/Comments: HOLD Vancomycin due to SUPRAtherapeutic level Pending Level: Random @ 06:00 04/17/25 Pharmacy Service will continue to monitor and adjust dosing as required. Follow-Up Labs Follow-Up Labs: Trough: Vancomycin (04/17/25 @ 06:00)
[2025-04-16] MEDS: 0.9% Normal Saline (250mL Bag) 250 ML 15 ML IV (21:26)
[2025-04-16] MEDS: Senna/Docusate Sodium 1 Tablet 2 TABLET PO (21:37)
[2025-04-16] MEDS: Calcium (Elemental) 500 MG Tablet PO (21:37)
[2025-04-17] VITALS (32 sets, daily range): BP systolic 115–190; BP diastolic 68–142; PULSE 79–123; RESP 16–112; TEMP 36.6–37.4; O2SAT 90–97; BMI 44.6
--- NOTE | 2025-04-17 00:12 | CPS ---
This PRODUCT MANAGEMENT SPECIALIST went into room to try to put pt on bipap since pt was sleeping. Pt is refusing. This PRODUCT MANAGEMENT SPECIALIST explains to the pt that he needs to wear it to help his breathing. pt still refusing saying "i will be fine, i dont need it". This PRODUCT MANAGEMENT SPECIALIST informs RN ryan about the pt refusing.
[2025-04-17 05:28] LABS: Hematocrit 33.3 % (40-54); Hemoglobin 10.2 g/dL (13.0-16.5); Immature Granulocytes Count 0.130 X10^3/uL (0.0-0.0); Mean Corp Hgb Conc 30.6 g/dL (32-36); Mean Corpuscular Volume 86.9 fL (80-94); Mean Platelet Vol. 8.9 fl (6.2-12.0); NRBC Flagged by Analyzer 0 % (0-5); Platelet Count 197 K/mm3 (150-450); RBC Distribution Width CV 15.0 % (11.6-14.6); RBC Distribution Width SD 47.3 fl (35.1-43.9); Red Blood Count 3.83 M/mm3 (4.6-6.2); White Blood Count 7.6 K/mm3 (4.4-11.0)
[2025-04-17 05:54] LABS: Vancomycin, Random Level 31.9 ug/mL (0.0-15.0)
[2025-04-17 05:55] LABS: Anion Gap 9 (5-15); BUN 26 mg/dL (4-19); BUN/Creat Ratio 15.9 RATIO (10-20); Calcium,Total 8.5 mg/dL (7.6-11.0); Carbon Dioxide 27.2 mmol/L (21.0-32.0); Chloride 103 mmol/L (98-108); Estimated Creatinine Clearance 59.03 ml/min (50-250); Glucose 116 mg/dL (70-99); Potassium 3.1 mmol/L (3.3-5.1)
[2025-04-17] MEDS: Cefepime HCl 2 GM in 0.9% Normal Saline (100mL MB+) 100 ML IV ×3 (06:03→21:32)
--- NOTE | 2025-04-17 06:04 | PCM.RX.CS ---
Consult Antibiotic Management Pharmacy has been consulted to manage selected antibiotic: Vancomycin Type of Intervention Type of Consult: Follow-up Suspected Infection Suspected Infection: Sepsis and Pneumonia Labs Labs: Sodium 140 mmol/L (133-145) 04/17/25 05:20 Potassium 3.1 mmol/L (3.3-5.1) L 04/17/25 05:20 Chloride 103 mmol/L (98-108) 04/17/25 05:20 Carbon Dioxide 27.2 mmol/L (21.0-32.0) 04/17/25 05:20 Anion Gap 9 (5-15) 04/17/25 05:20 BUN 26 mg/dL (4-19) H 04/17/25 05:20 Creatinine 1.64 mg/dL (0.70-1.20) H 04/17/25 05:20 Est GFR (MDRD) Non-Af 49 (>60) L 04/17/25 05:20 BUN/Creatinine Ratio 15.9 RATIO (10-20) 04/17/25 05:20 Glucose 116 mg/dL (70-99) H 04/17/25 05:20 Vancomycin Trough 40.5 ug/mL (5.0-15.0) H 04/16/25 17:49 Random Vancomycin 31.9 ug/mL (0.0-15.0) H 04/17/25 05:20 Microbiology Microbiology: Microbiology 04/11/25 07:42 Blood Culture (Wb) - Anticubital Left Blood Culture - Final No growth in 5 days. 04/11/25 07:30 Blood Culture (Wb) - Left Hand Blood Culture - Final No growth in 5 days. 04/11/25 08:11 Urine, Catheterized Urine Culture - Final Culture exhibits no growth. 04/11/25 19:33 Mucosa - Nasopharyngeal Coronavirus COVID-19 PCR - Final 04/11/25 08:11 Urine, Random Legionella Antigen - Final 04/11/25 08:11 Urine, Random Streptococcus pneumoniae Antigen (M - Final 04/11/25 12:40 Nasal Secretion MRSA (PCR) - Final Meth. resistant Staph. aureus 04/11/25 11:06 Mucosa - Nasopharyngeal Respiratory Panel (PCR) - Final 04/11/25 08:12 Mucosa - Nose SARS-CoV-2, Influenza & RSV (PCR) - Final 04/11/25 08:11 Urine Catheter - Catheter Legionella Antigen - Final 04/11/25 08:11 Urine Catheter - Catheter Streptococcus pneumoniae Antigen (M - Final Estimated Creatinine Clearance Estimated Creatinine Clearance: 59 Goal Trough Goal Trough: 15-20 mcg/mL Pharmacy Plan for Drug Dosing Pharmacy Plan for Drug Dosing: VANCOMYCIN LEVEL RECEIVED Current Vancomycin Dose: on HOLD Vancomycin Level: 31.9 Hours Since Last Dose: 18.25 Renal Function: sCr 1.64 Renal Function Trend: declined Lab/Micro: pending Vancomycin Plan/Comments: Continue to HOLD Vancomycin until level < 20 Pending Level: Random @ 06:00 04/18/25 Pharmacy Service will continue to monitor and adjust dosing as required. Follow-Up Labs Follow-Up Labs: Trough: Vancomycin (04/18/25 @ 06:00)
[2025-04-17] MEDS: Calcium (Elemental) 500 MG Tablet PO ×2 (06:05→22:04)
[2025-04-17] MEDS: Divalproex Sodium 125 MG SPRINKLE 250 MG PO ×2 (06:06→22:03)
[2025-04-17] MEDS: Vancomycin Trough/Random Due 1 LAB MC (06:23)
[2025-04-17] MEDS: Aspirin E.C. 81 MG Tablet PO (09:49)
[2025-04-17] MEDS: Azithromycin 500 MG in 0.9% Normal Saline (250mL Bag) 250 ML 250 MG IV (09:52)
[2025-04-17] MEDS: Fluticasone 0.05% 1 SPRAY NASAL.SRY NASAL (09:53)
[2025-04-17] MEDS: Potassium Chloride 10mEq/100mL 10 MEQ/100 ML IV.SOLN. 100 MEQ IV BOLUS ×4 (09:57→12:54)
[2025-04-17] MEDS: CHLORHEXIDINE GLUC 2% CLOTH 1 EACH TOWELETTE TOPICAL (09:57)
--- NOTE | 2025-04-17 09:58 | PN_ITS ---
Subjective Subjective Patient seen and examined this morning. He was lying calmly in bed. He has been off Precedex since last night. He is also off the BiPAP and on 2 L of oxygen. However he is tachypneic and tachycardic and has a mild fever of 99.2 Fahrenheit this morning. Blood pressure also elevated at 178/84. WBC is only 7.6. Objective Data Objective Data Vital Signs: Vital Signs Temp Pulse Resp BP Pulse Ox O2 Del Method O2 Flow Rate 99.2 F H 108 H 24 H 178/84 H 93 Nasal Cannula 2 04/17/25 09:53 04/17/25 09:53 04/17/25 09:53 04/17/25 09:53 04/17/25 09:53 04/17/25 09:53 04/17/25 09:53 FiO2 30 04/16/25 10:50 Oxygen Flow Rate (L/min) 2 Oxygen Delivery Method Nasal Cannula Weight: 261 lb 7.492 oz Body Mass Index (BMI) 44.6 Intake & Output: Intake and Output for Last 24 Hours 04/15/25 04/16/25 04/17/25 23:59 23:59 23:59 Intake Total 1575.12 / 1590.52 2892.52 / 2892.52 200 / 200 Output Total 4600 / 4600 750 / 750 600 / 600 Balance -3024.88 / -3009.48 2142.52 / 2142.52 -400 / -400 Lab / Micro Data 04/17/25 05:20 04/17/25 05:20 Labs: Laboratory Results - last 24 hr 04/16/25 17:49: Vancomycin Trough 40.5 H 04/16/25 19:00: Random Vancomycin 38.8 H 04/17/25 05:20: WBC 7.6, RBC 3.83 L, Hgb 10.2 L, Hct 33.3 L, MCV 86.9, MCH 26.6 L, MCHC 30.6 L, RDW Std Deviation 47.3 H, RDW Coeff of Eleanor 15.0 H, Plt Count 197, MPV 8.9, Immature Gran % (Auto) 1.700 H, Neut % (Auto) 73.9 H, Lymph % (Auto) 8.6 L, [place] % (Auto) 14.0 H, Eos % (Auto) 1.1, Baso % (Auto) 0.7, Absolute Neuts (auto) 5.6, Absolute Lymphs (auto) 0.65 L, Nucleated RBC % 0, Sodium 140, Potassium 3.1 L, Chloride 103, Carbon Dioxide 27.2, Anion Gap 9, BUN 26 H, Creatinine 1.64 H, Estim Creat Clear Calc 59.03, Est GFR (MDRD) Non-Af 49 L, BUN/Creatinine Ratio 15.9, Glucose 116 H, Calcium 8.5, Random Vancomycin 31.9 H Micro: Microbiology 04/11/25 07:42 Blood Culture (Wb) - Anticubital Left Blood Culture - Final No growth in 5 days. 04/11/25 07:30 Blood Culture (Wb) - Left Hand Blood Culture - Final No growth in 5 days. 04/11/25 08:11 Urine, Catheterized Urine Culture - Final Culture exhibits no growth. 04/11/25 19:33 Mucosa - Nasopharyngeal Coronavirus COVID-19 PCR - Final 04/11/25 08:11 Urine, Random Legionella Antigen - Final 04/11/25 08:11 Urine, Random Streptococcus pneumoniae Antigen (M - Final 04/11/25 12:40 Nasal Secretion MRSA (PCR) - Final Meth. resistant Staph. aureus 04/11/25 11:06 Mucosa - Nasopharyngeal Respiratory Panel (PCR) - Final 04/11/25 08:12 Mucosa - Nose SARS-CoV-2, Influenza & RSV (PCR) - Final 04/11/25 08:11 Urine Catheter - Catheter Legionella Antigen - Final 04/11/25 08:11 Urine Catheter - Catheter Streptococcus pneumoniae Antigen (M - Final Physical Exam Const Constitutional Narrative: alert, communicative. off BIPAP and precedex. no apparent distress HEENT normocephalic and head/scalp atraumatic Eyes Eyes Narrative: visually impaired Neck supple and no JVD Lymph Lymphatic: no lymphedema noted Resp Resp Narrative: Moderately diminished breath sounds bibasilar. No wheezes or crackles. on 2L of oxygen by nasal canula. tachypneic Cardio regular rhythm, S1 normal heart sound, S2 normal heart sound and no murmurs Cardio Narrative: tachycardic GI normal to inspection, nondistended, normoactive bowel sounds, soft to palpation and non-tender Extremity normal capillary refill General Extremity: no tenderness to palpation of joints or extremities Skin General Skin Exam: no breakdown Neuro no focal motor deficits Neuro Narrative: alert, communicative Motor Exam: general weakness Psych Psych Narrative: calmer and cooperative today. Assessment & Plan Assessment/Plan (1) Severe sepsis: (2) Acute hypoxemic respiratory failure: (3) Pneumonia: PLAN: Plan #Acute hypoxic and hypercapnic respiratory failure due to aspiration pneumonia * Now off BIPAP and on 2L of oxygen by nasl cannula. Concern for aspiration pneumonia. Speech therapy on board * Breathing treatments bronchodilators. Titrate oxygen to maintain saturation above 90%. Patient counseled about importance of BiPAP and he is willing to tolerated and trial it again. * Pulmonology on board. MRSA screen positive but respiratory and blood cultures are negative so far. Hypercapnia thought to be benzodiazepine use which resulted in respiratory depression. He did receive flumazenil and scheduled benzos discontinued. * He is tachycardic and tachypneic today and also has a fever of 99.2 Fahrenheit. WBC is only 7.6. He does remain on vancomycin and Zosyn. vanc trough was elevated yesterday. Management of vancomycin as per pharmacy. * Sputum cultures grew MRSA from 04/11/2025. * #Sepsis sepsis due to aspiration pneumonia: As above #GURJIT: Creatinine is up to 1.64 today. May be due to the elevation in the wrong trough. Will still hydrate with IV fluids normal saline at 125 cc/h for 2 bags. #Adrenal insufficiency: On fludrocortisone and hydrocortisone daily at home #Benign essential hypertension: * on PO amlodipine, hydralazine and lisinopril which are being crushed and given in puree sauce. * on propranolol 40mg bid crushed and given in puree also #Hypokalemia: K is 3.1 today. Will replace aggressively and trend. #History of schizoaffective disorder:on benztropine #COPD and asthma: Not in exacerbation. Breathing treatments bronchodilators. #Class III obesity: BMI is 47. Complicates acute care, expected recovery and prognosis. #DVT prophylaxis: Lovenox Charges/Coding Visit Charges Inpatient E&M: 83533 Subs Hosp L3
[2025-04-17] MEDS: 0.9% Normal Saline (1000mL) 1,000 ML 125 ML IV ×2 (10:54→19:39)
[2025-04-17] MEDS: Acetylcysteine 800 MG/4 ML VIAL.NEB. INHALATION ×2 (11:22→19:08)
--- NOTE | 2025-04-17 14:20 | PCM.PN.TICU ---
Objective Data Objective Data Vital Signs: Vital Signs Last response Temperature 37.2 C 04/17/25 12:00 Temperature Source Temporal 04/17/25 12:00 Pulse Rate 83 04/17/25 14:09 Pulse Strength Weak (1+) 04/14/25 19:49 Respiratory Rate 18 04/17/25 13:00 Respiratory Effort Normal, Non-Labored 04/17/25 12:00 Respiratory Depth Normal 04/17/25 12:00 Respiratory Pattern Normal 04/17/25 12:00 Blood Pressure 174/90 H 04/17/25 14:09 Blood Pressure Mean 106 04/17/25 13:00 Blood Pressure Source Monitor 04/17/25 13:00 Blood Pressure Position Semi-Fowlers 04/17/25 13:00 Blood Pressure Location Left Arm 04/17/25 13:00 Pulse Ox 94 04/17/25 13:00 Oxygen Delivery Method Nasal Cannula 04/17/25 13:00 Oxygen Flow Rate (L/min) 2 04/17/25 13:00 Fraction of Inspired Oxygen (FIO2) 30 04/16/25 10:50 EtCo2 - Document during CPR and with ROSC 65 04/14/25 12:07 I&O: I&O Last 24 Hours 04/16/25 04/17/25 04/17/25 23:59 11:59 23:59 Intake Total 838.32 / 2892.52 586.25 / 1031.25 445 / 1031.25 Output Total 750 / 750 600 / 900 300 / 900 Balance 88.32 / 2142.52 -13.75 / 131.25 145 / 131.25 I&O: Total Stay 04/11/25 07:13 thru 04/17/25 14:17 Intake Total 92706.68 Output Total 90385 Balance 3123.68 Current Meds Ordered / Administered: Current meds ordered / Administered Generic Name Dose Route Start Last Admin Trade Name Freq PRN Reason Stop Dose Admin Acetaminophen 650 mg 04/12/25 08:29 04/16/25 19:44 Acetaminophen 325 Mg Tablet PO 650 mg Q4H PRN Administration fever or pain 1-10 Acetylcysteine 800 mg 04/13/25 11:00 04/17/25 11:22 Acetylcysteine 800 Mg/4 Ml Vial.Neb. INHALATION 800 mg BID.RT BRIANA Administration Albuterol Sulfate 2.5 mg 04/11/25 11:14 Albuterol 2.5 Mg/3 Ml Vial.Neb. INHALATION Q2H PRN PRN SOB &/OR WHEEZING Albuterol/Ipratropium 3 ml 04/14/25 14:00 04/17/25 11:22 Ipratropium/Albuterol Sulfate 3 Ml Ampul.Neb INHALATION 3 ml Q6H.RT BRIANA Administration Amlodipine Besylate 5 mg 04/12/25 10:00 04/17/25 09:51 Amlodipine 5 Mg Tablet PO 5 mg DAILY BRIANA Administration Protocol Aspirin 81 mg 04/12/25 08:00 04/17/25 09:49 Aspirin E.C. 81 Mg Tablet PO 81 mg BREAKFAST BRIANA Administration Benztropine Mesylate 1 mg 04/11/25 10:00 04/17/25 09:49 Benztropine 2 Mg Tablet PO 1 mg BID BRIANA Administration Calcium Carbonate 500 mg 04/11/25 14:00 04/17/25 13:49 Calcium (Elemental) 500 Mg Tablet PO Not Given TID [facility] Chlorhexidine Gluconate 1 each 04/15/25 10:00 04/17/25 09:57 Chlorhexidine Gluc 2% Cloth 1 Each [place] TOPICAL 1 each DAILY [facility] Administration Cholecalciferol 50 mcg 04/11/25 10:00 04/17/25 09:52 Cholecalciferol (Vit D3) 25 Mcg Tablet (1,000 Units) PO Not Given DAILY [facility] Cyanocobalamin 1,000 mcg 04/13/25 10:00 04/13/25 13:02 Cyanocobalamin 500 Mcg Tablet PO Not Given We@1000 [facility] Divalproex Sodium 250 mg 04/11/25 14:00 04/17/25 14:07 Divalproex Sodium 125 Mg Sprinkle PO Not Given Q8 [facility] Enoxaparin Sodium 40 mg 04/11/25 11:14 04/17/25 09:51 Enoxaparin 40 Mg/0.4 Ml Syringe SC 40 mg DAILY [facility] Administration Escitalopram Oxalate 10 mg 04/11/25 10:00 04/17/25 09:51 Escitalopram Oxalate 10 Mg Tablet PO 10 mg BID BRIANA Administration Ferrous Sulfate 325 mg 04/12/25 12:00 04/16/25 12:19 Ferrous Sulfate 325 Mg Tablet PO Not Given Q48@1200 [facility] Fludrocortisone Acetate 0.1 mg 04/11/25 10:00 04/17/25 09:50 Fludrocortisone Acetate 0.1 Mg Tablet PO Not Given DAILY BRIANA Fluticasone Propionate 1 spray 04/11/25 10:00 04/17/25 09:53 Fluticasone 0.05% 1 [place] Nasal.Sry NASAL 1 spray DAILY BRIANA Administration Guaifenesin 10 ml 04/11/25 11:14 Guaifenesin 10 Ml Udc (200mg/10ml) PO Q4H PRN PRN COUGH Hydralazine HCl 10 mg 04/11/25 14:00 04/17/25 14:07 Hydralazine 10 Mg Tablet PO Not Given TID BRIANA Protocol Hydralazine HCl 10 mg 04/15/25 09:24 04/17/25 14:09 Hydralazine 20 Mg/Ml Vial IV 10 mg Q2H PRN PRN Administration SBP GREATER THAN 170 Protocol Hydrocortisone 15 mg 04/11/25 10:00 04/17/25 09:50 Hydrocortisone 10 Mg Tablet PO Not Given DAILY BRIANA Vancomycin IV-PHARMACY TO DOSE 500 mls @ 250 mls/hr 04/11/25 11:10 1 each/ Sodium Chloride IV X1 PRN Rx to Dose Protocol Cefepime HCl 2 gm/ Sodium 100 mls @ 200 mls/hr 04/11/25 14:00 04/17/25 13:47 Chloride IV 04/18/25 14:01 200 mls/hr Q8 BRIANA Administration Sodium Chloride 250 mls @ 15 mls/hr 04/11/25 12:53 04/16/25 11:58 IV 0 mls/hr .[id number] PRN Infusion Saline Flush Sodium Chloride 250 mls @ 15 mls/hr 04/11/25 12:53 04/17/25 10:11 IV 0 mls/hr .[id number] PRN Infusion Additional IVPB Infusion Dexmedetomidine HCl 400 mcg/ 100 mls @ 15.375 mls/hr 04/14/25 16:30 04/17/25 09:49 Sodium Chloride CONT INF Not Given .Q6H31M BRIANA Protocol 0.5 MCG/KG/HR Sodium Chloride 1,000 mls @ 125 mls/hr 04/17/25 10:50 04/17/25 10:54 IV 04/18/25 02:49 125 mls/hr .Q8H BRIANA Administration Lisinopril 20 mg 04/12/25 10:00 04/17/25 09:51 Lisinopril 20 Mg Tablet PO 20 mg DAILY BRIANA Administration Protocol Lorazepam 2 mg 04/11/25 09:39 04/16/25 21:32 Lorazepam 1 Mg Tablet PO 2 mg Q6H PRN Administration AGITATION Ondansetron HCl 4 mg 04/11/25 11:14 04/17/25 10:05 Ondansetron 4 Mg/2 Ml Vial IV 4 mg Q8H PRN PRN Administration NAUSEA/VOMITING Pantoprazole Sodium 40 mg 04/11/25 10:00 04/17/25 09:53 Pantoprazole Sodium 40 Mg Tablet PO Not Given DAILY BRIANA Polyethylene Glycol 17 gm 04/11/25 10:00 04/17/25 09:53 Polyethylene Glycol 3350 17 Gm Packet PO Not Given DAILY BRIANA Propranolol HCl 40 mg 04/16/25 13:00 04/17/25 09:50 Propranolol 40 Mg Tablet PO 40 mg BID BRIANA Administration Protocol Quetiapine Fumarate 300 mg 04/11/25 22:00 04/17/25 09:52 Quetiapine 100 Mg Tablet PO 300 mg BID BRIANA Administration Senna/Docusate Sodium 2 tablet 04/11/25 11:14 Senna/Docusate Sodium 1 Tablet PO BID PRN PRN Constipation Senna/Docusate Sodium 2 tablet 04/12/25 10:00 04/17/25 09:52 Senna/Docusate Sodium 1 Tablet PO Not Given BID BRIANA Sodium Chloride 10 - 40 ml 04/11/25 12:53 04/16/25 16:51 0.9% Saline Lock 10 Ml Syringe IV 20 ml UD PRN Administration SALINE FLUSH Vancomycin Protocol 1 lab 04/18/25 05:00 Vancomycin Trough/Random Due MC 04/18/25 07:00 DAILY BRIANA Lab / Micro Data Attestation: I reviewed the patient's lab results. 04/17/25 05:20 04/17/25 05:20 Labs: Laboratory Results - last 24 hr 04/16/25 17:49: Vancomycin Trough 40.5 H 04/16/25 19:00: Random Vancomycin 38.8 H 04/17/25 05:20: WBC 7.6, RBC 3.83 L, Hgb 10.2 L, Hct 33.3 L, MCV 86.9, MCH 26.6 L, MCHC 30.6 L, RDW Std Deviation 47.3 H, RDW Coeff of Eleanor 15.0 H, Plt Count 197, MPV 8.9, Immature Gran % (Auto) 1.700 H, Neut % (Auto) 73.9 H, Lymph % (Auto) 8.6 L, [place] % (Auto) 14.0 H, Eos % (Auto) 1.1, Baso % (Auto) 0.7, Absolute Neuts (auto) 5.6, Absolute Lymphs (auto) 0.65 L, Nucleated RBC % 0, Sodium 140, Potassium 3.1 L, Chloride 103, Carbon Dioxide 27.2, Anion Gap 9, BUN 26 H, Creatinine 1.64 H, Estim Creat Clear Calc 59.03, Est GFR (MDRD) Non-Af 49 L, BUN/Creatinine Ratio 15.9, Glucose 116 H, Calcium 8.5, Random Vancomycin 31.9 H Micro: Microbiology 04/11/25 07:42 Blood Culture (Wb) - Anticubital Left Blood Culture - Final No growth in 5 days. 04/11/25 07:30 Blood Culture (Wb) - Left Hand Blood Culture - Final No growth in 5 days. Assessment and Plan . Assessment and plan: A/P: #Acute hypoxemic respiratory failure #Sepsis #PNA, suspected aspiration #Adrenal insufficiency #Acute on chronic anemia #Learning disability #Schizoaffective disorder #COPD/asthma #HTN #Morbid obesity -change BiPAP to PRN - leave off sedation -Cont broad spectrum emp IV Abx -Nebs +/- Mucomyst for bronchopulm hygiene -ST to re-assess -Cont home fludrocortisone & hydrocortisone -Monitoring blood counts PO diet with ST precautions once LMWH Critical Care Time: 50 minutes The entirety of this encounter was done via Telemedicine Physical Exam Const alert, oriented x3 and no apparent distress General Appearance: cooperative HEENT head/scalp atraumatic Eyes PERRL and EOMs intact bilaterally Neck full ROM Subjective Subjective Alert and oriented, off precedex
[2025-04-17] MEDS: 0.9% Saline Lock 10 ML Syringe IV ×2 (21:36→22:24)
[2025-04-17] MEDS: Senna/Docusate Sodium 1 Tablet 2 TABLET PO (22:05)
[2025-04-18] VITALS (22 sets, daily range): BP systolic 144–206; BP diastolic 63–100; PULSE 66–98; RESP 16–88; TEMP 36.4–36.9; O2SAT 93–97; BMI 44.4
[2025-04-18] MEDS: Acetylcysteine 800 MG/4 ML VIAL.NEB. INHALATION ×2 (01:49→07:04)
[2025-04-18] MEDS: Vancomycin Trough/Random Due 1 LAB MC (03:38)
[2025-04-18] MEDS: Cefepime HCl 2 GM in 0.9% Normal Saline (100mL MB+) 100 ML IV ×2 (05:07→13:50)
[2025-04-18] MEDS: Divalproex Sodium 125 MG SPRINKLE 250 MG PO ×3 (05:08→21:56)
[2025-04-18] MEDS: Calcium (Elemental) 500 MG Tablet PO ×3 (05:08→22:08)
[2025-04-18 05:11] LABS: Hematocrit 28.0 % (40-54); Hemoglobin 8.6 g/dL (13.0-16.5); Immature Granulocytes Count 0.090 X10^3/uL (0.0-0.0); Mean Corp Hgb Conc 30.7 g/dL (32-36); Mean Corpuscular Volume 88.6 fL (80-94); Mean Platelet Vol. 8.5 fl (6.2-12.0); NRBC Flagged by Analyzer 0 % (0-5); Platelet Count 148 K/mm3 (150-450); RBC Distribution Width CV 15.1 % (11.6-14.6); RBC Distribution Width SD 48.0 fl (35.1-43.9); Red Blood Count 3.16 M/mm3 (4.6-6.2); White Blood Count 5.3 K/mm3 (4.4-11.0)
[2025-04-18 05:31] LABS: Anion Gap 7 (5-15); BUN 16 mg/dL (4-19); BUN/Creat Ratio 14.5 RATIO (10-20); Calcium,Total 9.1 mg/dL (7.6-11.0); Carbon Dioxide 30.3 mmol/L (21.0-32.0); Chloride 109 mmol/L (98-108); Estimated Creatinine Clearance 88.75 ml/min (50-250); Glucose 116 mg/dL (70-99); Potassium 3.4 mmol/L (3.3-5.1); Vancomycin, Random Level 11.1 ug/mL (0.0-15.0)
--- NOTE | 2025-04-18 06:02 | PCM.RX.CS ---
Consult Antibiotic Management Pharmacy has been consulted to manage selected antibiotic: Vancomycin Type of Intervention Type of Consult: Follow-up Suspected Infection Suspected Infection: Pneumonia Labs Labs: Sodium 146 mmol/L (133-145) H 04/18/25 05:00 Potassium 3.4 mmol/L (3.3-5.1) 04/18/25 05:00 Chloride 109 mmol/L (98-108) H 04/18/25 05:00 Carbon Dioxide 30.3 mmol/L (21.0-32.0) 04/18/25 05:00 Anion Gap 7 (5-15) 04/18/25 05:00 BUN 16 mg/dL (4-19) 04/18/25 05:00 Creatinine 1.10 mg/dL (0.70-1.20) 04/18/25 05:00 Est GFR (MDRD) Non-Af 79 (>60) 04/18/25 05:00 BUN/Creatinine Ratio 14.5 RATIO (10-20) 04/18/25 05:00 Glucose 116 mg/dL (70-99) H 04/18/25 05:00 Vancomycin Trough 40.5 ug/mL (5.0-15.0) H 04/16/25 17:49 Random Vancomycin 11.1 ug/mL (0.0-15.0) 04/18/25 05:00 Microbiology Microbiology: Microbiology 04/11/25 07:42 Blood Culture (Wb) - Anticubital Left Blood Culture - Final No growth in 5 days. 04/11/25 07:30 Blood Culture (Wb) - Left Hand Blood Culture - Final No growth in 5 days. 04/11/25 08:11 Urine, Catheterized Urine Culture - Final Culture exhibits no growth. 04/11/25 19:33 Mucosa - Nasopharyngeal Coronavirus COVID-19 PCR - Final 04/11/25 08:11 Urine, Random Legionella Antigen - Final 04/11/25 08:11 Urine, Random Streptococcus pneumoniae Antigen (M - Final 04/11/25 12:40 Nasal Secretion MRSA (PCR) - Final Meth. resistant Staph. aureus 04/11/25 11:06 Mucosa - Nasopharyngeal Respiratory Panel (PCR) - Final 04/11/25 08:12 Mucosa - Nose SARS-CoV-2, Influenza & RSV (PCR) - Final 04/11/25 08:11 Urine Catheter - Catheter Legionella Antigen - Final 04/11/25 08:11 Urine Catheter - Catheter Streptococcus pneumoniae Antigen (M - Final Goal Trough Goal Trough: 15-20 mcg/mL Pharmacy Plan for Drug Dosing Pharmacy Plan for Drug Dosing: VANCOMYCIN LEVEL RECEIVED Current Vancomycin Dose: on HOLD Number of Doses Received: 1500mg X9 prior to hold Vancomycin Level: 11.1 Hours Since Last Dose: 42 Renal Function: sCr 1.10 Renal Function Trend: worsened since admission Vancomycin Plan/Comments: Restart Vancomycin at a regimen of 1000mg Q12H Pending Level: 04/19/25 @ 18:30 Pharmacy Service will continue to monitor and adjust dosing as required. Follow-Up Labs Follow-Up Labs: Trough: Vancomycin (04/19/25 @ 18:30)
--- NOTE | 2025-04-18 07:37 | PN.CC_ITS ---
Assessment & Plan Assessment/Plan (1) Acute hypoxemic respiratory failure: PLAN: Plan RECOMMENDATIONS: 1. Supplemental oxygen to maintain saturations 88 to 92%. 2. BiPAP therapy with naps and nightly. 3. Antimicrobials to complete 14 days of therapy. 4. Continue bronchodilator therapy. 5. Continue hydrocortisone/Florinef per home regimen. 6. Lovenox for DVT prophylaxis. 7. Encourage incentive spirometer use and mobilize patient as tolerated. 8. The patient is medically stable for transfer out of the intensive care unit. Will sign off at this time. IMPRESSIONS: 1. Acute hypoxemic respiratory failure Most likely secondary to severe community-acquired pneumonia 2/2 MRSA. The patient does have a significant consolidative infiltrate in the right middle and lower lobe. He does have a questionable history of COPD of unknown severity. Therefore, it is reasonable to continue bronchodilator therapy along with supplemental oxygen to maintain saturations 88 to 92%. The patient will be maintained on empiric antimicrobials to complete 14 days of therapy. He does have a known history of heart failure with preserved ejection fraction, but appears clinically stable at the present time. 2. History of adrenal insufficiency/hypertension/schizoaffective disorder/anemia Complicates care, management, recovery and prognosis. Continue supportive measures as noted above. CODE STATUS: DNR CCA without intubation (this was confirmed with the patient's sister, Courtney Oates, via telephone) This note was generated with [employer] dictation software. It may contain incorrect words, spelling, and punctuation that were not noted in checking the note before signing. Subjective Subjective The patient was seen and examined at the bedside this morning. Events from the last 24 hours have been reviewed. The patient is currently afebrile, hemodynamically stable and maintaining appropriate oxygen saturations on 4 L/min via nasal cannula. No overnight events were reported. White blood cell count is normal. Hemoglobin this morning was noted to be 8.6 g/dL with a platelet count of 148,000. Objective Data Objective Data The patient's most recent lab work, culture data and imaging studies have all been personally reviewed. Surface echocardiogram from April 09 demonstrated stage I diastolic dysfunction with an ejection fraction of 55%. Strep and urine Legionella antigens were negative. Vital Signs: Vital Signs Temp Pulse Resp BP Pulse Ox O2 Del Method O2 Flow Rate 97.9 F 93 18 154/69 H 94 Nasal Cannula 4 04/17/25 19:00 04/18/25 07:06 04/18/25 07:06 04/18/25 06:00 04/18/25 07:06 04/18/25 07:06 04/18/25 07:06 FiO2 35 04/18/25 02:00 Oxygen Flow Rate (L/min) 4 Oxygen Delivery Method Nasal Cannula Weight: 260 lb Body Mass Index (BMI) 44.4 Intake & Output: Intake and Output for Last 24 Hours 04/16/25 04/17/25 04/18/25 23:59 23:59 23:59 Intake Total 2892.52 / 2892.52 2231.25 / 2231.25 1000 / 1000 Output Total 750 / 750 2700 / 2700 600 / 600 Balance 2142.52 / 2142.52 -468.75 / -468.75 400 / 400 Lab / Micro Data Attestation: I reviewed the patient's lab results. 04/18/25 05:00 04/18/25 05:00 Labs: Laboratory Results - last 24 hr 04/18/25 05:00: WBC 5.3, RBC 3.16 L, Hgb 8.6 L, Hct 28.0 L, MCV 88.6, MCH 27.2, MCHC 30.7 L, RDW Std Deviation 48.0 H, RDW Coeff of Eleanor 15.1 H, Plt Count 148 L, MPV 8.5, Immature Gran % (Auto) 1.700 H, Neut % (Auto) 66.8, Lymph % (Auto) 11.5 L, [place] % (Auto) 16.9 H, Eos % (Auto) 2.3, Baso % (Auto) 0.8, Absolute Neuts (auto) 3.6, Absolute Lymphs (auto) 0.61 L, Nucleated RBC % 0, Sodium 146 H, Potassium 3.4, Chloride 109 H, Carbon Dioxide 30.3, Anion Gap 7, BUN 16, Creatinine 1.10, Estim Creat Clear Calc 88.75, Est GFR (MDRD) Non-Af 79, BUN/Creatinine Ratio 14.5, Glucose 116 H, Calcium 9.1, Random Vancomycin 11.1 Micro: Microbiology 04/11/25 07:42 Blood Culture (Wb) - Anticubital Left Blood Culture - Final No growth in 5 days. 04/11/25 07:30 Blood Culture (Wb) - Left Hand Blood Culture - Final No growth in 5 days. 04/11/25 08:11 Urine, Catheterized Urine Culture - Final Culture exhibits no growth. 04/11/25 19:33 Mucosa - Nasopharyngeal Coronavirus COVID-19 PCR - Final 04/11/25 08:11 Urine, Random Legionella Antigen - Final 04/11/25 08:11 Urine, Random Streptococcus pneumoniae Antigen (M - Final 04/11/25 12:40 Nasal Secretion MRSA (PCR) - Final Meth. resistant Staph. aureus 04/11/25 11:06 Mucosa - Nasopharyngeal Respiratory Panel (PCR) - Final 04/11/25 08:12 Mucosa - Nose SARS-CoV-2, Influenza & RSV (PCR) - Final 04/11/25 08:11 Urine Catheter - Catheter Legionella Antigen - Final 04/11/25 08:11 Urine Catheter - Catheter Streptococcus pneumoniae Antigen (M - Final Radiography Diagnostic Testing: Radiology Impression Chest X-Ray 04/11/25 07:50 IMPRESSION: Airspace disease including acinar opacities; this has worsened. Acinar opacities represent alveolar filling with mucous, pus or fluid. Infectious causes include infectious etiologies such as mycobacteria such as BRADY/MAC and fungal infection like coccidioidomycosis. Reading Location: [facility] Physical Exam Const alert and no apparent distress Constitutional Narrative: Morbidly obese. Resting comfortably in bed. General Appearance: cooperative HEENT normocephalic and head/scalp atraumatic Eyes PERRL, EOMs intact bilaterally and conjunctivae normal Neck supple General: trachea midline Chest inspection of chest normal Resp normal respiratory effort and no use of accessory muscles Auscultation: diminished lung sounds Cardio regular rate, regular rhythm, S1 normal heart sound and S2 normal heart sound GI normal to inspection, nondistended, normoactive bowel sounds Extremity no clubbing, cyanosis or edema Skin no rashes or lesions noted Neuro CN's II-XII intact bilaterally, moves all extremities and no focal motor deficits Psych Mood & Affect: flat affect Charges/Coding Visit Charges Inpatient E&M: 09697 Subs Hosp L2
[2025-04-18] MEDS: Vancomycin HCl 1,000 MG in 0.9% Normal Saline (250mL Bag) 250 ML 250 MG IV ×2 (08:41→21:48)
[2025-04-18] MEDS: Aspirin E.C. 81 MG Tablet PO (08:48)
--- NOTE | 2025-04-18 09:49 | ST.MBS ---
Modified Barium Swallow Patient Information Study Date: 04/18/25 Study Time: 13:00 Direct Billable Minutes: 105 Total Minutes procedure & reportin Diagnosis: PNA J18.9 Referring Physician: Buffy Kaplan Reason for Referral: Assess swallow function, assess risk for aspiration, and determine recommendations for least restrictive diet textures and compensatory strategies to improve swallowing safety. Medical History: 55-year-old male with a learning disability and schizoaffective disorder, residing in a shelter, presented to the ED 04/11/2025 with shortness of breath and hypoxemia (SpO2 70s). History obtained was limited due to poor reliability. intermediate staff reported recent emesis. On arrival, the patient was febrile, tachycardic, tachypneic, and hypoxemic, requiring nonrebreather oxygen. Chest imaging revealed worsening right middle and lower lobe consolidation with airspace disease consistent with alveolar filling (mucus, pus, or fluid). Labs notable for WBC 11 K/µL, Hgb 10.7 g/dL, Plt 219 K/µL, normal coagulation and chemistry panels, and normal lactate. Urinalysis was unremarkable. Clinical picture consistent with sepsis secondary to aspiration pneumonia. The patient was started on broad-spectrum antibiotics and transitioned to heated high-flow oxygen. He was admitted to a monitored bed for ongoing management. ST dysphagia evaluation warranted due to concern for aspiration pneumonia. Hx of dysphagia w/ MBSS 11/22/2024 revealing mild-moderate oropharyngeal dysphagia and recommending minced and moist textures / mildly thick liquids. BSE 04/11/2025 recommended minced and moist textures / mildly thick liquids w/ recommended repeat MBSS during acute stay. MBSS was scheduled 04/13/2025, but pt was too lethargic to participate. 04/14/2025 he was not appropriate as he was BiPAP dependent. 04/15/2025 he was cleared for participation in MBSS given improved alertness and successful transition to nasal cannula. Limited trials due to bradycardia and hypertension. Pt was cleared only for critical meds crushed in this weekend and recommended NPO. Repeat MBSS today as pt has somewhat improved alertness, BP (170s/80s), and HR (now elevated, 108 BPM). Medical History (Updated 04/11/25 @ 11:[address] Cayetano Manzo MD) Pneumonia Esophageal obstruction Kidney disease Schizophrenia Depression Anxiety Open wound Abrasion Arthritis History of renal disease Dietary restriction Difficulty swallowing History of diverticulitis Heartburn Gastric reflux Non-smoker Aspiration pneumonia MRSA (methicillin resistant staph aureus) culture positive Acidosis, lactic GURJIT (acute kidney injury) Morbid obesity with BMI of 40.0-44.9, adult Intermittent explosive disorder Schizoaffective disorder Acute metabolic encephalopathy COPD (chronic obstructive pulmonary disease) Hypoxia Pneumonia Bradycardia Chronic anal fissure Cellulitis Adrenocortical insufficiency Anemia Schizo affective schizophrenia Legally blind Intermittent explosive disorder COPD (chronic obstructive pulmonary disease) Hypertension Asthma Gastroparesis Cyclical vomiting Thrombocythemia Hypocalcemia Anxiety Current Diet Ordered: NPO Dentition: Edentulous Mental Status: Impaired Respiratory Status: Oxygenating on 4L/M nasal cannula Penetration-Aspiration Scale Penetration-Aspiration Scale: OBJECTIVE ASSESSMENT OF SWALLOW FUNCTION (QUANTITATIVE – PER TRIAL): PENETRATION / ASPIRATION SCALE (VALERIO): 1 = does not enter airway 2 = enters airway/above vocal folds/ejected 3 = enters airway/above vocal folds/not ejected 4 = enters airway/contacts vocal folds/ejected 5 = enters airway/contacts vocal folds/not ejected 6 = enters airway/below vocal folds/ejected 7 = enters airway/below vocal folds/not ejected despite effort 8 = enters airway/below vocal folds/no effort VIDEOFLOROSCOPIC SCALE SCORE (VALERIO): Grade I = aspiration of material that has penetrated into the laryngeal vestibule, intact cough reflex Grade II = aspiration < 10 % of the bolus, intact cough reflex Grade III = aspiration of < 10 % of the bolus, reduced cough reflex or aspiration of > 10 % of the bolus, intact cough reflex Grade IV = aspiration of > 10 % of the bolus, reduced cough reflex Penetration-Aspiration Scale Score [place] Thick Liquid via teaspoon: Result: 2= enter airway/above vocal folds/ejected [place] Thick Liquid via teaspoon Trial 2: Result: 2= enter airway/above vocal folds/ejected [place] Thick Liquid via large single sip: cup: Result: 2= enter airway/above vocal folds/ejected [place] Thick Liquid via single sip: straw: Result: 5= enters airways/contacts vocal folds/not ejected Pudding via teaspoon: Result: 1= does not enter airway Comment: Esophageal screen - Complete clearance. Pudding via teaspoon Trial 2: Result: 1= does not enter airway [place] Thick Liquid via sequential sips:straw: Result: 5= enters airways/contacts vocal folds/not ejected [place] Thick Liquid via small single sip: cup: Result: 1= does not enter airway Thin Liquid via teaspoon: Result: 2= enter airway/above vocal folds/ejected Thin Liquid via teaspoon Trial 2: Result: 2= enter airway/above vocal folds/ejected Thin Liquid via small single sip: cup: Result: 2= enter airway/above vocal folds/ejected Thin Liquid via small single sip: cup Trial 2: Result: 2= enter airway/above vocal folds/ejected Barium Tablet in pudding: Result: 1= does not enter airway Comment: No oral clearance on first attempt. FLATBED TRUCK DRIVER provided the patient the barium tablet w/ a larger bite of pudding and then he was able to clear it from his oral cavity. Esophageal screen - Minimal retention of pudding, which cleared when provided a mildly/nectar thick liquid wash. Oral Phase Labial Seal: No Labial Escape Tongue Control During Bolus Hold: Posterior escape of greater than half of bolus Bolus Transport/Lingual Motion: Slowed tongue motion Oral Residue: Residue collection on oral structures Pharyngeal Phase Initiation of Pharyngeal Swallow: Bolus head in pyriforms Soft Palate Elevation: Trace column of contrast/air between soft palate and pharyngeal wall Laryngeal Elevation: Partial superior movement thyroid cart/partial apprx aryt-epig petiole Anterior Hyoid Excursion: Partial anterior movement Epiglottic Movement: Partial inversion Laryngeal Vestibule Closure at Height of Swallow: Incomplete; narrow column of air/contrast in laryngeal vestibule Pharyngeal Stripping Wave: Present - diminished Pharyngoesophageal Segment Opening: Parital distension and partial duration; parital obstruction of flow Tongue Base Retraction: Narrow column of contrast between tongue base & post. pharyngeal wall Pharyngeal Residue: Collection of residue within or on pharyngeal structures Esophageal Phase Esophageal Clearance: Esophageal retention Diagnosis/Impression Diagnosis: Moderate oropharyngeal dysphagia R13.12 MBS Impressions: The oral phase is primarily marked by... -Decreased bolus control w/ premature posterior loss of >1/2 of mildly thick liquid trials via straw to the pyriform sinuses and even laryngeal vestibule prior to swallow onset, increasing risk for aspiration before and during the swallow. -Slowed tongue motion for A-P transport. -Mild-moderate oral residues. -Did not trial solids due to pt appearing somewhat lethargic today w/ hx of mastication deficits. When pt is more alert, will trial soft solids at bedside to consider diet advancement. The pharyngeal phase is primarily marked by... -Delayed swallow onset. -Mildly decreased pharyngeal motility due to decreased TB retraction and pharyngeal stripping wave w/ trace-mild pharyngeal residues, which is greatly improved from previous MBSS. -Decreased airway closure due to decreased anterior hyoid excursion and laryngeal elevation w/ partial epiglottic inversion. -Laryngeal penetration of mildly thick liquids via straw to the vocal folds w/o complete ejection. No aspiration observed. See PAS scores above for full details. The esophageal phase is primarily marked by... -Minimal retention of pudding in the middle esophagus, which fully cleared w/ single nectar/mildly thick liquid wash. Recommendations Diet: Puree Textures and Mildly Thick Liquids Comment: Medications whole in , 1 at a time Compensatory Strategies: Small Bites, Small Sips, No Straws, Slow Rate (Sips 1 at a time), Alternate bites/solids and sips/liquids, Sitting upright and Remain sitting upright for 30 minutes after PO intake Supervision: Total Feed Recommend Repeat Modified Barium Swallow: TBD Need for Skilled Speech Therapy Services: Yes Comment: -Ongoing assessment of diet tolerance. Trials of thin liquids and soft solids w/ FLATBED TRUCK DRIVER in upcoming sessions to consider further diet advancement. -Train pt and staff in strategies to decrease risk for aspiration. -Train pt in oral motor and oropharyngeal exercise program (lingual resistance, lingual coordination, Effortful, CTAR). Education Completed: 1. Described result of evaluation., 2. Pt understands evaluation & agrees with goals and treatment plan. and 7. Pt requires further education on strategies & risks. Status Active ST Patient: Active Contact Information [facility] Speech Therapy:: Cristina Coburn M.A. [facility]-FLATBED TRUCK DRIVER Speech-Language Pathologist [facility] [address] [place] [address] [phone]
[2025-04-18] MEDS: Polyethylene Glycol 3350 17 GM PACKET PO (09:51)
[2025-04-18] MEDS: Lactobacillis Acidophilus 1 CAP PO (09:52)
[2025-04-18] MEDS: Senna/Docusate Sodium 1 Tablet 2 TABLET PO ×2 (09:53→22:07)
[2025-04-18] MEDS: Cholecalciferol (VIT D3) 25 MCG TABLET (1,000 UNITS) 50 MCG PO (09:54)
[2025-04-18] MEDS: CHLORHEXIDINE GLUC 2% CLOTH 1 EACH TOWELETTE TOPICAL (09:56)
[2025-04-18] MEDS: Fluticasone 0.05% 1 SPRAY NASAL.SRY NASAL (09:56)
--- NOTE | 2025-04-18 11:50 | CASEMGMT ---
Social Work SW participated in ICU rounds this morning. Pt is on O2 at present, 3-4LPM, and using bipapp at night here in the hospital. SW called [facility] in [place], spoke w/Nancie. Pt was using O2 PRN at the facility but was noncompliant. He was not on bipapp at night but they did anticipate he may need it when he returns. They can do this, will just need settings. Nancie also states when pt returns, she will speak w/sister/guardian about hospice. She states pt was on hospice in the past, but he was doing too well and it was revoked. SW will continue to follow. FABIAN Panda
--- NOTE | 2025-04-18 12:00 | CASEMGMT ---
Discharge Planning Updates faxed to [facility]. Jeannette Katz DC Planning Asst.
--- NOTE | 2025-04-18 12:09 | CHAPLAIN ---
Type of Pastoral Visit _x__ Initial Visit ___ Follow-up Visit ___ On-call Visit ___ General Patient Visit ___ Spiritual Assessment ___ Family Conference ___ Bereavement ___ Rapid Response ___ Code Blue ___ Other (describe below) Pastoral Care Referral From ___ Patient ___ Family _x__ Nurse ___ Physician ___ Hospital Sales Representative ___ Medical And Scientific Illustrator ___ Other (describe below) Sacrament/Intervention ___ Active listening ___ Anointing ___ Religion ___ Bereavement ___ Communion ___ Jennifer exploration ___ ___ Life review _x__ Prayer ___ Reconciliation ___ Sacrament of Sick _x__ Supportive presence ___ Wedding ___ Other (describe below) Pastoral Comments this patient was put back on the bi-pap machine just minutes prior to this visit; pt is awake but unable to speak without difficulty; pt is given clear words to say who the backend tester is and why he is in the room; pt has been met before and is reminded of past conversations to give him ease of mind; pt is given calm presence and words of support; a prayer is spoken; affirming patient of attention to his needs
--- NOTE | 2025-04-18 13:18 | PN_ITS ---
Subjective Subjective Patient seen and examined. He was lying comfortably in bed. He really would not answer questions apart from just responding to his name. Unable to do review of systems. He did have modified barium swallow today. He has remained hemodynamically stable and is on 3 L of oxygen. Objective Data Objective Data Vital Signs: Vital Signs Temp Pulse Resp BP Pulse Ox O2 Del Method O2 Flow Rate 97.5 F L 65 18 158/91 H 97 Nasal Cannula 3 04/18/25 08:00 04/18/25 12:30 04/18/25 12:30 04/18/25 11:00 04/18/25 11:00 04/18/25 11:00 04/18/25 11:00 FiO2 35 04/18/25 02:00 Oxygen Flow Rate (L/min) 3 Oxygen Delivery Method Nasal Cannula Weight: 260 lb Body Mass Index (BMI) 44.4 Intake & Output: Intake and Output for Last 24 Hours 04/16/25 04/17/25 04/18/25 23:59 23:59 23:59 Intake Total 2892.52 / 2892.52 2231.25 / 2231.25 1730 / 1730 Output Total 750 / 750 2700 / 2700 600 / 600 Balance 2142.52 / 2142.52 -468.75 / -468.75 1130 / 1130 Lab / Micro Data 04/18/25 05:00 04/18/25 05:00 Labs: Laboratory Results - last 24 hr 04/18/25 05:00: WBC 5.3, RBC 3.16 L, Hgb 8.6 L, Hct 28.0 L, MCV 88.6, MCH 27.2, MCHC 30.7 L, RDW Std Deviation 48.0 H, RDW Coeff of Eleanor 15.1 H, Plt Count 148 L, MPV 8.5, Immature Gran % (Auto) 1.700 H, Neut % (Auto) 66.8, Lymph % (Auto) 11.5 L, [place] % (Auto) 16.9 H, Eos % (Auto) 2.3, Baso % (Auto) 0.8, Absolute Neuts (auto) 3.6, Absolute Lymphs (auto) 0.61 L, Nucleated RBC % 0, Sodium 146 H, Potassium 3.4, Chloride 109 H, Carbon Dioxide 30.3, Anion Gap 7, BUN 16, Creatinine 1.10, Estim Creat Clear Calc 88.75, Est GFR (MDRD) Non-Af 79, BUN/Creatinine Ratio 14.5, Glucose 116 H, Calcium 9.1, Random Vancomycin 11.1 Micro: Microbiology 04/11/25 07:42 Blood Culture (Wb) - Anticubital Left Blood Culture - Final No growth in 5 days. 04/11/25 07:30 Blood Culture (Wb) - Left Hand Blood Culture - Final No growth in 5 days. 04/11/25 08:11 Urine, Catheterized Urine Culture - Final Culture exhibits no growth. 04/11/25 19:33 Mucosa - Nasopharyngeal Coronavirus COVID-19 PCR - Final 04/11/25 08:11 Urine, Random Legionella Antigen - Final 04/11/25 08:11 Urine, Random Streptococcus pneumoniae Antigen (M - Final 04/11/25 12:40 Nasal Secretion MRSA (PCR) - Final Meth. resistant Staph. aureus 04/11/25 11:06 Mucosa - Nasopharyngeal Respiratory Panel (PCR) - Final 04/11/25 08:12 Mucosa - Nose SARS-CoV-2, Influenza & RSV (PCR) - Final 04/11/25 08:11 Urine Catheter - Catheter Legionella Antigen - Final 04/11/25 08:11 Urine Catheter - Catheter Streptococcus pneumoniae Antigen (M - Final Physical Exam Const alert Constitutional Narrative: not very communicative today. off BIPAP and precedex. no apparent distress HEENT normocephalic and head/scalp atraumatic Eyes EOMs intact bilaterally Eyes Narrative: visually impaired Neck supple and no JVD Lymph Lymphatic: no lymphedema noted Resp Resp Narrative: Moderately diminished breath sounds bibasilar. No wheezes or crackles. on 3 L of oxygen by nasal canula. Cardio regular rate, regular rhythm, S1 normal heart sound, S2 normal heart sound and no murmurs GI normal to inspection, nondistended, normoactive bowel sounds, soft to palpation and non-tender Extremity normal capillary refill General Extremity: no tenderness to palpation of joints or extremities Skin General Skin Exam: no breakdown Neuro no focal motor deficits Neuro Narrative: alert, communicative Motor Exam: general weakness Psych Psych Narrative: flat affect Assessment & Plan Assessment/Plan (1) Severe sepsis: (2) Acute hypoxemic respiratory failure: (3) Pneumonia: PLAN: Plan #Acute hypoxic and hypercapnic respiratory failure due to aspiration pneumonia * Remains off BIPAP and on 3L of oxygen by nasal cannula. Concern for aspiration pneumonia. Speech therapy on board * Breathing treatments bronchodilators. Titrate oxygen to maintain saturation above 90%. Patient counseled about importance of BiPAP and he is willing to tolerated and trial it again. * Pulmonology on board. MRSA screen positive but respiratory and blood cultures are negative so far. Hypercapnia thought to be benzodiazepine use which resulted in respiratory depression. He did receive flumazenil and scheduled benzos discontinued. * WBC today is only 5.3. He does remain on vancomycin and Zosyn. Management of vancomycin as per pharmacy. * Sputum cultures grew MRSA from 04/11/2025. * Per building construction supervisor to complete 14 days of antibiotic therapy * #Sepsis sepsis due to aspiration pneumonia: As above #GURJIT: resolved. Cr has trended downwards to 1.1 today. #Adrenal insufficiency: On fludrocortisone and hydrocortisone daily #Benign essential hypertension: * on PO amlodipine, hydralazine and lisinopril which are being crushed and given in puree sauce. * on propranolol 40mg bid crushed and given in puree also #Oropharyngeal dysphagia * Had modified barium swallow today which showed evidence of dysphagia * Recommendation is for him to be on puréed texture diet with mildly thick liquids. Management as per speech therapy. * #Hypokalemia:improving. K is 3.4 today. #History of schizoaffective disorder:on benztropine #COPD and asthma: Not in exacerbation. Breathing treatments bronchodilators. #Class III obesity: BMI is 47. Complicates acute care, expected recovery and prognosis. #DVT prophylaxis: Lovenox Disposition: Transfer out of ICU to PCU Charges/Coding Visit Charges Inpatient E&M: 99284 Subs Hosp L2
[2025-04-18] MEDS: 0.9% Saline Lock 10 ML Syringe IV ×2 (14:01→21:54)
[2025-04-19] VITALS (13 sets, daily range): BP systolic 156–195; BP diastolic 88–94; PULSE 62–77; RESP 14–20; TEMP 36.1–37.3; O2SAT 92–94; BMI 43.3
[2025-04-19 04:06] LABS: Hematocrit 27.7 % (40-54); Hemoglobin 8.5 g/dL (13.0-16.5); Immature Granulocytes Count 0.060 X10^3/uL (0.0-0.0); Mean Corp Hgb Conc 30.7 g/dL (32-36); Mean Corpuscular Volume 89.1 fL (80-94); Mean Platelet Vol. 9.4 fl (6.2-12.0); NRBC Flagged by Analyzer 0 % (0-5); Platelet Count 139 K/mm3 (150-450); RBC Distribution Width CV 15.3 % (11.6-14.6); RBC Distribution Width SD 48.9 fl (35.1-43.9); Red Blood Count 3.11 M/mm3 (4.6-6.2); White Blood Count 5.9 K/mm3 (4.4-11.0)
[2025-04-19 04:42] LABS: Anion Gap 8 (5-15); BUN 11 mg/dL (4-19); BUN/Creat Ratio 13.4 RATIO (10-20); Calcium,Total 9.8 mg/dL (7.6-11.0); Carbon Dioxide 34.6 mmol/L (21.0-32.0); Chloride 105 mmol/L (98-108); Estimated Creatinine Clearance 114.29 ml/min (50-250); Glucose 118 mg/dL (70-99); Potassium 3.0 mmol/L (3.3-5.1)
[2025-04-19] MEDS: Divalproex Sodium 125 MG SPRINKLE 250 MG PO ×3 (05:38→22:32)
[2025-04-19] MEDS: Calcium (Elemental) 500 MG Tablet PO ×3 (05:39→22:30)
[2025-04-19] MEDS: Vancomycin HCl 1,000 MG in 0.9% Normal Saline (250mL Bag) 250 ML 250 MG IV (06:25)
[2025-04-19] MEDS: 0.9% Saline Lock 10 ML Syringe IV ×2 (06:25→22:33)
[2025-04-19] MEDS: Potassium Chloride 10mEq/100mL 10 MEQ/100 ML IV.SOLN. 100 MEQ IV BOLUS ×4 (08:42→13:22)
[2025-04-19] MEDS: Cholecalciferol (VIT D3) 25 MCG TABLET (1,000 UNITS) 50 MCG PO (08:46)
[2025-04-19] MEDS: Aspirin E.C. 81 MG Tablet PO (08:48)
[2025-04-19] MEDS: Lactobacillis Acidophilus 1 CAP PO (08:48)
[2025-04-19] MEDS: Fluticasone 0.05% 1 SPRAY NASAL.SRY NASAL (08:50)
--- NOTE | 2025-04-19 10:26 | CON.PCM.ID_ITS ---
Assessment & Plan Assessment/Plan (1) Severe sepsis: (2) Pneumonia: PLAN: No sputum cx collected here. Nares pcr (+) for MRSA on admit, but also (+) in the past, so not clear if this pneumonia is due to MRSA or not. Suspect aspiration played a big part in his acute illness. Currently on vancomycin, overall improved. Will change to doxy, cefdinir, and flagyl po, plan on 5 more days abx. Will follow, thank you, d/w vocational case manager (3) Acute hypoxemic respiratory failure: HPI Consult Data Date of Consult: 04/19/25 HPI Narrative Reason for Consultation: pneumonia HPI Narrative: TEGAN FUENTES, is a 55 M with learning disability, halfway resident, presented 04/11 to ED with dyspnea, hypoxia, n/v. Admitted to icu on vanc/cefepime/azitho. Now out of icu, O2 improved, fever resolved. Pt unable to provide history or ROS due to mental status. [facility] Medical History Pneumonia Esophageal obstruction Kidney disease Schizophrenia Depression Anxiety Open wound Abrasion Arthritis History of renal disease Dietary restriction Difficulty swallowing History of diverticulitis Heartburn Gastric reflux Non-smoker Aspiration pneumonia MRSA (methicillin resistant staph aureus) culture positive Acidosis, lactic GURJIT (acute kidney injury) Morbid obesity with BMI of 40.0-44.9, adult Intermittent explosive disorder Schizoaffective disorder Acute metabolic encephalopathy COPD (chronic obstructive pulmonary disease) Hypoxia Pneumonia Bradycardia Chronic anal fissure Cellulitis Adrenocortical insufficiency Anemia Schizo affective schizophrenia Legally blind Intermittent explosive disorder COPD (chronic obstructive pulmonary disease) Hypertension Asthma Gastroparesis Cyclical vomiting Thrombocythemia Hypocalcemia Anxiety Home Medications Medication Instructions Recorded Last Taken Type albuterol sulfate 0.63 mg/3 mL 0.63 mg inhalation Q4H PRN 06/04/22 Unknown History solution for nebulization Shortness Of Breath benztropine 1 mg tablet 1 mg PO BID 06/04/22 3 History cyanocobalamin (vitamin B-12) 1,000 mcg PO WE SUPPLEME NT 06/04/22 07/24/22 08:00 History 1,000 mcg tablet escitalopram oxalate 10 mg tablet 10 mg PO BID MENTAL HEALTH 06/04/22 07/24/22 08:00 History (Lexapro) fludrocortisone 0.1 mg tablet 0.1 mg PO DAILY low marek isol 06/04/22 07/24/22 08:00 History fluticasone propionate 50 1 spray intranasal DAILY ALL ERGIES 06/04/22 07/24/22 08:00 History mcg/actuation nasal spray,suspension (Flonase Allergy Relief) iloperidone 12 mg tablet (Fanapt) 12 mg PO DAILY MENTA L HEALTH 06/04/22 07/23/22 History iloperidone 6 mg tablet (Fanapt) 6 mg PO DAILY MENTAL HEALTH 06/04/22 07/24/22 08:00 History quetiapine 300 mg tablet,extended 600 mg PO QHS MENTAL HEALTH 06/04/22 07/23/22 History release 24 hr (Seroquel XR) aspirin 81 mg tablet,delayed 81 mg PO DAILY HEART HEAL TH 07/24/22 07/24/22 08:00 History release cholecalciferol (vitamin D3) 50 50 mcg PO DAILY SUPPLE MENT 07/24/22 07/24/22 08:00 History mcg (2,000 unit) tablet (Vitamin D3) loperamide 2 mg capsule 2 mg PO Q4H PRN STOOL 07/24/22 09:30 History magnesium hydroxide 400 mg/5 mL 30 ml PO Q24H PRN Cons tipation 07/24/22 Unknown History oral suspension (Milk of Magnesia) propranolol 80 mg capsule,24 80 mg PO DAILY BLOOD PRES SURE 07/24/22 07/24/22 08:00 History hr,extended release L.acidophil-L.casei-B.bifid-B.longum-FOS 1 cap PO BAILEY Y supplement 06/24/24 Unknown History 2 billion cell-50 mg capsule (Probiotic Blend) divalproex 125 mg capsule,delayed 250 mg PO Q8H schizo 06/24/24 Unknown History release sprinkle folic acid 400 mcg tablet 1 mg PO DAILY supplement Unknown History hydrocortisone 5 mg tablet 15 mg PO DAILY adrenal 06/09 12/01 Unknown History insufficiency lisinopril 20 mg tablet 20 mg PO DAILY blood pressur e 06/24/24 Unknown History pantoprazole 40 mg tablet,delayed 40 mg PO Q12H GERD 0 06/24/24 Unknown History release hydralazine 10 mg tablet 10 mg PO TID blood pressure 07/16/24 Unknown History lorazepam 2 mg tablet (Ativan) 2 mg PO Q6H PRN Agitati on #6 tabs 07/20/24 Unknown Rx hydrochlorothiazide 25 mg tablet 25 mg PO DAILY diuret ic 08/17/24 Unknown History lorazepam 2 mg/mL injection syringe 2 mg IM Q6H PRN ag itation 08/17/24 Unknown History potassium chloride 10 mEq 30 meq PO DAILY hypokalemia 08/17/24 Unknown History capsule,extended release acetaminophen 325 mg tablet 650 mg PO Q4H PRN fever or pain 10/11/24 Unknown History (Tylenol) docusate sodium 100 mg capsule 100 mg PO BID stool sof t 11/18/24 Unknown History (Colace) ergocalciferol (vitamin D2) 1,250 1,250 mcg PO QWEEK s uppl 11/18/24 Unknown History mcg (50,000 unit) capsule polyethylene glycol 3350 17 17 g PO DAILY constipation 11/18/24 Unknown History gram/dose oral powder (ClearLax) calcium carbonate 500 mg PO TID SUPPLEMENT 30 days 11/23/24 07/24/22 08:00 Rx #90 tabs ferrous sulfate 325 mg (65 mg 325 mg PO QODAY SUPPLEME NT 30 days 11/23/24 07/24/22 08:00 Rx iron) tablet (FeroSul) #0 tabs amlodipine 5 mg tablet 5 mg PO DAILY hypertension 1 06/12/24 Unknown History fluticasone 250 mcg-salmeterol 50 1 ea inhalation BID COPD 04/12/25 Unknown History mcg/dose blistr powdr for inhalation (Advair Diskus) hydrocortisone 10 mg tablet 10 mg PO DAILY adrenal 10/01 Unknown History insufficiency lorazepam 2 mg tablet (Ativan) 2 mg PO TID generalized anxiety 04/12/25 Unknown History disorder sennosides 8.6 mg-docusate sodium 2 tab-cap PO BID con stipation 04/12/25 Unknown History 50 mg capsule (Senna Plus) tiotropium bromide 18 mcg capsule 1 cap inhalation MARCK LY asthma 04/12/25 Unknown History with inhalation device CPAP - Continuous Positive Airway unknown 04/17/25 Unk nown History Pressure([facility] INFORMATIONAL USE ONLY) Allergy/AdvReac Type Severity Reaction Status Date / Time acetic acid Allergy PT UNABLE Verified 04/11/25 07:22 TO RESPOND-NEEDS F/U nut - unspecified (nuts) Allergy PT UNABLE Verified 04/11/25 07:22 TO RESPOND-NEEDS F/U Penicillins Allergy PT UNABLE Verified 04/11/25 11:20 TO RESPOND-NEEDS F/U risperidone Allergy PT UNABLE Verified 04/11/25 07:22 TO RESPOND-NEEDS F/U Family History Father COPD (chronic obstructive pulmonary disease) Mother Hypertension Surgical History History of eye surgery S/P repair of hydrocele Social History housing: other details: Nursing facility with psychiatric focus. Smoking Status: Never smoker alcohol intake: never substance use type: does not use Physical Exam Const no apparent distress General Appearance: lethargic HEENT normocephalic and head/scalp atraumatic Eyes PERRL and EOMs intact bilaterally Neck supple and No nodes Resp normal air movement Auscultation: diminished lung sounds Cardio regular rate and regular rhythm GI soft to palpation, non-tender and non-distended Extremity General Extremity: edema Skin no rashes or lesions noted Neuro CN's II-XII intact bilaterally Lab / Micro Data Attestation: I reviewed the patient's lab results. 04/19/25 03:46 04/19/25 03:46 Labs: Laboratory Results - last 24 hr 04/19/25 03:46: WBC 5.9, RBC 3.11 L, Hgb 8.5 L, Hct 27.7 L, MCV 89.1, MCH 27.3, MCHC 30.7 L, RDW Std Deviation 48.9 H, RDW Coeff of Eleanor 15.3 H, Plt Count 139 L, MPV 9.4, Immature Gran % (Auto) 1.000 H, Neut % (Auto) 66.7, Lymph % (Auto) 12.4 L, [place] % (Auto) 16.2 H, Eos % (Auto) 2.9, Baso % (Auto) 0.8, Absolute Neuts (auto) 3.9, Absolute Lymphs (auto) 0.73 L, Nucleated RBC % 0, Sodium 147 H, P otassium 3.0 L, Chloride 105, Carbon Dioxide 34.6 H, Anion Gap 8, BUN 11, Creatinine 0.84, Estim Creat Clear Calc 114.29, Est GFR (MDRD) Non-Af 103, BUN/Creatinine Ratio 13.4, Glucose 118 H, Calcium 9.8
--- NOTE | 2025-04-19 13:48 | PN_ITS ---
Subjective Subjective Patient seen and examined with his nurse by his bedside. He had no active complaints. He was on 3 L of oxygen. Review of systems otherwise negative. Objective Data Objective Data Vital Signs: Vital Signs Temp Pulse Resp BP Pulse Ox O2 Del Method O2 Flow Rate 98.5 F 77 16 169/88 H 94 Room Air 3 04/19/25 05:33 04/19/25 12:18 04/19/25 12:18 04/19/25 05:38 04/19/25 06:47 04/19/25 08:28 04/19/25 06:47 FiO2 35 04/18/25 02:00 Oxygen Flow Rate (L/min) 3 Oxygen Delivery Method Room Air Weight: 252 lb 6.868 oz Body Mass Index (BMI) 43.3 Intake & Output: Intake and Output for Last 24 Hours 04/17/25 04/18/25 04/19/25 23:59 23:59 23:59 Intake Total 2231.25 / 2231.25 2460 / 2460 570 / 570 Output Total 2700 / 2700 800 / 800 1600 / 1600 Balance -468.75 / -468.75 1660 / 1660 -1030 / -1030 Lab / Micro Data 04/19/25 03:46 04/19/25 03:46 Labs: Laboratory Results - last 24 hr 04/19/25 03:46: WBC 5.9, RBC 3.11 L, Hgb 8.5 L, Hct 27.7 L, MCV 89.1, MCH 27.3, MCHC 30.7 L, RDW Std Deviation 48.9 H, RDW Coeff of Eleanor 15.3 H, Plt Count 139 L, MPV 9.4, Immature Gran % (Auto) 1.000 H, Neut % (Auto) 66.7, Lymph % (Auto) 12.4 L, [place] % (Auto) 16.2 H, Eos % (Auto) 2.9, Baso % (Auto) 0.8, Absolute Neuts (auto) 3.9, Absolute Lymphs (auto) 0.73 L, Nucleated RBC % 0, Sodium 147 H, P otassium 3.0 L, Chloride 105, Carbon Dioxide 34.6 H, Anion Gap 8, BUN 11, Creatinine 0.84, Estim Creat Clear Calc 114.29, Est GFR (MDRD) Non-Af 103, BUN/Creatinine Ratio 13.4, Glucose 118 H, Calcium 9.8 Micro: Microbiology 04/11/25 07:42 Blood Culture (Wb) - Anticubital Left Blood Culture - Final No growth in 5 days. 04/11/25 07:30 Blood Culture (Wb) - Left Hand Blood Culture - Final No growth in 5 days. 04/11/25 08:11 Urine, Catheterized Urine Culture - Final Culture exhibits no growth. 04/11/25 19:33 Mucosa - Nasopharyngeal Coronavirus COVID-19 PCR - Final 04/11/25 08:11 Urine, Random Legionella Antigen - Final 04/11/25 08:11 Urine, Random Streptococcus pneumoniae Antigen (M - Final 04/11/25 12:40 Nasal Secretion MRSA (PCR) - Final Meth. resistant Staph. aureus 04/11/25 11:06 Mucosa - Nasopharyngeal Respiratory Panel (PCR) - Final 04/11/25 08:12 Mucosa - Nose SARS-CoV-2, Influenza & RSV (PCR) - Final 04/11/25 08:11 Urine Catheter - Catheter Legionella Antigen - Final 04/11/25 08:11 Urine Catheter - Catheter Streptococcus pneumoniae Antigen (M - Final Physical Exam Const alert Constitutional Narrative: answers to his name but does not really answer questions. HEENT normocephalic and head/scalp atraumatic Eyes Eyes Narrative: visually impaired Neck supple and no JVD Lymph Lymphatic: no lymphedema noted Resp Resp Narrative: Moderately diminished breath sounds bibasilar. No wheezes or crackles. on 3L of oxygen by nasal canula. Cardio regular rate, regular rhythm, S1 normal heart sound, S2 normal heart sound and no murmurs GI normal to inspection, nondistended, normoactive bowel sounds, soft to palpation and non-tender Extremity normal capillary refill General Extremity: no tenderness to palpation of joints or extremities Skin General Skin Exam: no breakdown Neuro no focal motor deficits Neuro Narrative: alert, communicative Motor Exam: general weakness Psych Psych Narrative: flat affect Assessment & Plan Assessment/Plan (1) Severe sepsis: (2) Acute hypoxemic respiratory failure: (3) Pneumonia: PLAN: Plan #Acute hypoxic and hypercapnic respiratory failure due to aspiration pneumonia * Remains off BIPAP and on 3L of oxygen by nasal cannula. Concern for aspiration pneumonia. Speech therapy on board * Breathing treatments bronchodilators. Titrate oxygen to maintain saturation above 90%. Patient counseled about importance of BiPAP and he is willing to tolerated and trial it again. * Pulmonology on board. MRSA screen positive but respiratory and blood cultures are negative so far. Hypercapnia thought to be benzodiazepine use which resulted in respiratory depression. He did receive flumazenil and scheduled benzos discontinued. * WBC today is only 5.3. He does remain on vancomycin and Zosyn. Management of vancomycin as per pharmacy. * Sputum cultures grew MRSA from 04/11/2025. * Per hr intern to complete 14 days of antibiotic therapy. * #Sepsis sepsis due to aspiration pneumonia: * As above. ID consulted as he may need to complete the antibiotics on outpatient basis. * ID reviewed patient today and switched antibiotics to p.o. doxycycline, cefdinir and Flagyl for 5 more days of antibiotics. #GURJIT: resolved. #Adrenal insufficiency: On fludrocortisone and hydrocortisone daily #Benign essential hypertension: * on PO amlodipine, hydralazine and lisinopril which are being crushed and given in puree sauce. * on propranolol 40mg bid crushed and given in puree also #Oropharyngeal dysphagia * Had modified barium swallow today which showed evidence of dysphagia * Recommendation is for him to be on puréed texture diet with mildly thick liquids. Management as per speech therapy. * #Hypokalemia: Potassium is 3 today. Will replace aggressively and monitor. #History of schizoaffective disorder:on benztropine #COPD and asthma: Not in exacerbation. Breathing treatments bronchodilators. #Class III obesity: BMI is 47. Complicates acute care, expected recovery and prognosis. #DVT prophylaxis: Lovenox Disposition:for DC to SNF once medically stable. Charges/Coding Visit Charges Inpatient E&M: 09860 Subs Hosp L2
[2025-04-19 18:54] LABS: Mucous, Urine 0 SEEN /hpf (<or=2+)
[2025-04-19 19:09] LABS: Color, Urine Yellow (Yellow); Glucose, Dipstick Normal (Normal); Ketone-Dipstick Negative (Negative); Leukocyte Esterase-Dipstick Negative /ul (Negative); Nitrite-Dipstick Negative (Negative); Occult Blood-Urine 150 /ul (Negative); Protein-Dipstick 30 mg/dl (Negative); Specific Gravity, Urine 1.010 (1.002-1.030); Urine Bilirubin Dipstick Negative (Negative)
[2025-04-19 19:59] LABS: Red Blood Cells-Urine 50-100 SEEN /hpf (0-5)
[2025-04-19 20:00] LABS: Squamous Epithelial Cells - UA 0-5 SEEN /hpf (0-5)
[2025-04-20] VITALS (11 sets, daily range): BP systolic 162–200; BP diastolic 65–94; PULSE 61–71; RESP 16–18; TEMP 36.9–37.3; O2SAT 64–94; BMI 43.2
--- NOTE | 2025-04-20 05:01 | CPS ---
RN was told to have pt wear bipap this evening, pt refused the night before. RT asked pt. Pt strongly declined bipap. He did not want to wear bipap tonight either but agreed for 1 hour only. RT attempted to get face mask to seal, however pt has a jorgensen and mustache. Several attempts were made as decreasing mask leak, but was unsuccessful. After about 45 min of every 5 min going into pt room, RT took bipap off. Pt was relieved Nasal O2 was reapplied at 3L spo2 94%. RN notified.
[2025-04-20 05:34] LABS: Hematocrit 30.3 % (40-54); Hemoglobin 9.2 g/dL (13.0-16.5); Immature Granulocytes Count 0.030 X10^3/uL (0.0-0.0); Mean Corp Hgb Conc 30.4 g/dL (32-36); Mean Corpuscular Volume 87.8 fL (80-94); Mean Platelet Vol. 9.6 fl (6.2-12.0); NRBC Flagged by Analyzer 0 % (0-5); Platelet Count 165 K/mm3 (150-450); RBC Distribution Width CV 15.2 % (11.6-14.6); RBC Distribution Width SD 48.0 fl (35.1-43.9); Red Blood Count 3.45 M/mm3 (4.6-6.2); White Blood Count 5.6 K/mm3 (4.4-11.0)
[2025-04-20] MEDS: Calcium (Elemental) 500 MG Tablet PO ×3 (05:47→20:26)
[2025-04-20] MEDS: Divalproex Sodium 125 MG SPRINKLE 250 MG PO ×3 (05:48→20:25)
[2025-04-20 06:19] LABS: BUN 9 mg/dL (4-19); Glucose 97 mg/dL (70-99)
[2025-04-20 06:20] LABS: Anion Gap 22 (5-15); BUN/Creat Ratio 10.7 RATIO (10-20); Calcium,Total 9.2 mg/dL (7.6-11.0); Carbon Dioxide 26.0 mmol/L (21.0-32.0); Chloride 98 mmol/L (98-108); Estimated Creatinine Clearance 117.08 ml/min (50-250); Potassium 3.0 mmol/L (3.3-5.1)
--- NOTE | 2025-04-20 09:38 | CASEMGMT ---
Discharge Planning AVAP settings faxed to CP with note to reach out if CPAP info listed isn't sufficient. Fax confirmation rec'd. Jeannette Katz DC Planning Asst.
[2025-04-20] MEDS: 0.9% Saline Lock 10 ML Syringe IV ×3 (09:43→12:38)
[2025-04-20] MEDS: Potassium Chloride 20mEq/100mL 20 MEQ/100 ML IV.SOLN. 100 MEQ IV ×2 (09:43→11:04)
[2025-04-20] MEDS: 0.9% Normal Saline (250mL Bag) 250 ML 15 ML IV (09:45)
[2025-04-20] MEDS: Fluticasone 0.05% 1 SPRAY NASAL.SRY NASAL (10:10)
[2025-04-20] MEDS: Aspirin E.C. 81 MG Tablet PO (10:16)
[2025-04-20] MEDS: Lactobacillis Acidophilus 1 CAP PO (10:17)
[2025-04-20] MEDS: Cholecalciferol (VIT D3) 25 MCG TABLET (1,000 UNITS) 50 MCG PO (10:18)
--- NOTE | 2025-04-20 11:15 | CASEMGMT ---
Social Work SW called the sister Courtney and informed her that her brother is DC back to [facility] today. ACE informed her transportation will be set up for the patient to DC back. FAVIAN Ho
--- NOTE | 2025-04-20 11:55 | CHAPLAIN ---
Type of Pastoral Visit ___ Initial Visit _x__ Follow-up Visit ___ On-call Visit ___ General Patient Visit ___ Spiritual Assessment ___ Family Conference ___ Bereavement ___ Rapid Response ___ Code Blue ___ Other (describe below) Pastoral Care Referral From ___ Patient ___ Family ___ Nurse ___ Physician ___ Sausage Linker ___ Scissors Grinder _x__ Other (describe below) Sacrament/Intervention ___ Active listening ___ Anointing ___ Sabianist ___ Bereavement ___ Communion ___ Jennifer exploration ___ ___ Life review ___ Prayer ___ Reconciliation ___ Sacrament of Sick _x__ Supportive presence ___ Wedding ___ Other (describe below) Pastoral Comments patient is awake and sitting up in chair today; pt has a vomit bag and says that he is feeling sick in his stomach; sat with patient to offer comfort and supportive presence; talked slowly and calmly to assure patient of presence and kindness to meet his needs and concerns; after a time the patient said that he was just needing quiet and denied other support at this time
--- NOTE | 2025-04-20 12:52 | PCM.CONS.GEN ---
Assessment & Plan Assessment/Plan (1) Severe sepsis: (2) Adrenal insufficiency, primary: (3) Gross hematuria: PLAN: Bleeding appears to be from the urethra probably not from the kidneys but will do a CT scan of the abdomen pelvis with and without IV contrast. Hold any blood thinners. HPI Consult Data Date of Consult: 04/20/25 HPI Narrative Reason for Consultation: Gross hematuria HPI Narrative: TEGAN FUENTES, male who is in the hospital for unrelated reason he is getting ready for discharge and the nurses reported that they saw some blood in the diaper came and saw the patient he does have a little bit of blood spotting right in front of the penis he thinks the blood came from the urethra. He did have a CAT scan earlier this year that looked normal. Does not relate any difficulty with urination or history of kidney stones we will do a CT scan of the abdomen pelvis with contrast to evaluate. [facility] Medical History Pneumonia Esophageal obstruction Kidney disease Schizophrenia Depression Anxiety Open wound Abrasion Arthritis History of renal disease Dietary restriction Difficulty swallowing History of diverticulitis Heartburn Gastric reflux Non-smoker Aspiration pneumonia MRSA (methicillin resistant staph aureus) culture positive Acidosis, lactic GURJIT (acute kidney injury) Morbid obesity with BMI of 40.0-44.9, adult Intermittent explosive disorder Schizoaffective disorder Acute metabolic encephalopathy COPD (chronic obstructive pulmonary disease) Hypoxia Pneumonia Bradycardia Chronic anal fissure Cellulitis Adrenocortical insufficiency Anemia Schizo affective schizophrenia Legally blind Intermittent explosive disorder COPD (chronic obstructive pulmonary disease) Hypertension Asthma Gastroparesis Cyclical vomiting Thrombocythemia Hypocalcemia Anxiety Home Medications Medication Instructions Recorded Last Taken Type albuterol sulfate 0.63 mg/3 mL 0.63 mg inhalation Q4H PRN 06/04/22 Unknown History solution for nebulization Shortness Of Breath benztropine 1 mg tablet 1 mg PO BID 06/04/22 07/23/22 History cyanocobalamin (vitamin B-12) 1,000 mcg PO WE SUPPLEMENT 06/04/22 07/24/22 08:00 History 1,000 mcg tablet escitalopram oxalate 10 mg tablet 10 mg PO BID MENTAL HEALTH 06/04/22 07/24/22 08:00 History (Lexapro) fludrocortisone 0.1 mg tablet 0.1 mg PO DAILY low cortisol 06/04/22 07/24/22 08:00 History fluticasone propionate 50 1 spray intranasal DAILY ALLERGIES 06/04/22 07/24/22 08:00 History mcg/actuation nasal spray,suspension (Flonase Allergy Relief) iloperidone 12 mg tablet (Fanapt) 12 mg PO DAILY MENTAL HEALTH 06/04/22 07/23/22 History iloperidone 6 mg tablet (Fanapt) 6 mg PO DAILY MENTAL HEALTH 06/04/22 07/24/22 08:00 History quetiapine 300 mg tablet,extended 600 mg PO QHS MENTAL HEALTH 06/04/22 07/23/22 History release 24 hr (Seroquel XR) aspirin 81 mg tablet,delayed 81 mg PO DAILY HEART HEALTH 07/24/22 07/24/22 08:00 History release cholecalciferol (vitamin D3) 50 50 mcg PO DAILY SUPPLEMENT 07/24/22 07/24/22 08:00 History mcg (2,000 unit) tablet (Vitamin D3) loperamide 2 mg capsule 2 mg PO Q4H PRN STOOL 07/24/22 07/24/22 09:30 History magnesium hydroxide 400 mg/5 mL 30 ml PO Q24H PRN Constipation 07/24/22 Unknown History oral suspension (Milk of Magnesia) propranolol 80 mg capsule,24 80 mg PO DAILY BLOOD PRESSURE 07/24/22 07/24/22 08:00 History hr,extended release L.acidophil-L.casei-B.bifid-B.longum-FOS 1 cap PO DAILY supplement 06/24/24 Unknown History 2 billion cell-50 mg capsule (Probiotic Blend) divalproex 125 mg capsule,delayed 250 mg PO Q8H schizo 06/24/24 Unknown History release sprinkle folic acid 400 mcg tablet 1 mg PO DAILY supplement 06/24/24 Unknown History hydrocortisone 5 mg tablet 15 mg PO DAILY adrenal 06/24/24 Unknown History insufficiency lisinopril 20 mg tablet 20 mg PO DAILY blood pressure 06/24/24 Unknown History pantoprazole 40 mg tablet,delayed 40 mg PO Q12H GERD 06/24/24 Unknown History release hydralazine 10 mg tablet 10 mg PO TID blood pressure 07/16/24 Unknown History lorazepam 2 mg tablet (Ativan) 2 mg PO Q6H PRN Agitation #6 tabs 07/20/24 Unknown Rx hydrochlorothiazide 25 mg tablet 25 mg PO DAILY diuretic 08/17/24 Unknown History lorazepam 2 mg/mL injection syringe 2 mg IM Q6H PRN agitation 08/17/24 Unknown History potassium chloride 10 mEq 30 meq PO DAILY hypokalemia 08/17/24 Unknown History capsule,extended release acetaminophen 325 mg tablet 650 mg PO Q4H PRN fever or pain 10/11/24 Unknown History (Tylenol) docusate sodium 100 mg capsule 100 mg PO BID stool soft 11/18/24 Unknown History (Colace) ergocalciferol (vitamin D2) 1,250 1,250 mcg PO QWEEK suppl 11/18/24 Unknown History mcg (50,000 unit) capsule polyethylene glycol 3350 17 17 g PO DAILY constipation 11/18/24 Unknown History gram/dose oral powder (ClearLax) calcium carbonate 500 mg PO TID SUPPLEMENT 30 days 11/23/24 07/24/22 08:00 Rx #90 tabs ferrous sulfate 325 mg (65 mg 325 mg PO QODAY SUPPLEMENT 30 days 11/23/24 07/24/22 08:00 Rx iron) tablet (FeroSul) #0 tabs amlodipine 5 mg tablet 5 mg PO DAILY hypertension 04/12/25 Unknown History fluticasone 250 mcg-salmeterol 50 1 ea inhalation BID COPD 04/12/25 Unknown History mcg/dose blistr powdr for inhalation (Advair Diskus) hydrocortisone 10 mg tablet 10 mg PO DAILY adrenal 04/12/25 Unknown History insufficiency lorazepam 2 mg tablet (Ativan) 2 mg PO TID generalized anxiety 04/12/25 Unknown History disorder sennosides 8.6 mg-docusate sodium 2 tab-cap PO BID constipation 04/12/25 Unknown History 50 mg capsule (Senna Plus) tiotropium bromide 18 mcg capsule 1 cap inhalation DAILY asthma 04/12/25 Unknown History with inhalation device CPAP - Continuous Positive Airway unknown 04/17/25 Unknown History Pressure([facility] INFORMATIONAL USE ONLY) Allergy/AdvReac Type Severity Reaction Status Date / Time acetic acid Allergy PT UNABLE Verified 04/11/25 07:22 TO RESPOND-NEEDS F/U nut - unspecified (nuts) Allergy PT UNABLE Verified 04/11/25 07:22 TO RESPOND-NEEDS F/U Penicillins Allergy PT UNABLE Verified 04/11/25 11:20 TO RESPOND-NEEDS F/U risperidone Allergy PT UNABLE Verified 04/11/25 07:22 TO RESPOND-NEEDS F/U Family History Father COPD (chronic obstructive pulmonary disease) Mother Hypertension Surgical History History of eye surgery S/P repair of hydrocele Social History housing: other details: Nursing facility with psychiatric focus. Smoking Status: Never smoker alcohol intake: never substance use type: does not use Physical Exam Const alert and oriented x3 General Appearance: cooperative HEENT normocephalic, head/scalp atraumatic, EAC's normal and TM's normal bilaterally Eyes PERRL and EOMs intact bilaterally Pupil: sluggish Neck no lymphadenopathy, supple and no JVD General: trachea midline Lymph Lymphatic: no lymphadenopathy noted, lymphedema and lymphadenopathy Resp normal respiratory effort, normal air movement and clear to auscultation bilaterally Cardio regular rate, regular rhythm and peripheral pulses 2+ throughout GI soft to palpation, non-tender and non-distended Extremity normal capillary refill and no clubbing, cyanosis or edema General Extremity: no tenderness to palpation of joints or extremities Skin no rashes or lesions noted General Skin Exam: turgor normal Lesions: no lesions Rashes: no rashes Neuro CN's II-XII intact bilaterally Speech: speech normal Motor Exam: strength 5/5 throughout; Negative for general weakness Psych thought process normal, cooperative and affect normal Appearance: appropriate Lab / Micro Data 04/20/25 04:33 04/20/25 04:33 Labs: Laboratory Results - last 24 hr 04/19/25 18:45: Urine Color Yellow, Urine Clarity Sl. Cloudy, Urine pH 6.5, Ur Specific [place] 1.010, Urine Protein 30 H, Urine Glucose (UA) Normal, Urine Ketones Negative, Urine Occult Blood 150 H, Urine Nitrite Negative, Urine Bilirubin Negative, Urine Urobilinogen Normal, Ur Leukocyte Esterase Negative, Urine RBC 50-100 SEEN, Urine WBC 0-5 SEEN, Ur Squamous Epith Cells 0-5 SEEN, Urine Bacteria 0 SEEN, Urine Mucus 0 SEEN 04/20/25 04:33: WBC 5.6, RBC 3.45 L, Hgb 9.2 L, Hct 30.3 L, MCV 87.8, MCH 26.7 L, MCHC 30.4 L, RDW Std Deviation 48.0 H, RDW Coeff of Eleanor 15.2 H, Plt Count 165, MPV 9.6, Immature Gran % (Auto) 0.500, Neut % (Auto) 64.3, Lymph % (Auto) 15.3 L, [place] % (Auto) 15.3 H, Eos % (Auto) 4.1, Baso % (Auto) 0.5, Absolute Neuts (auto) 3.6, Absolute Lymphs (auto) 0.86, Nucleated RBC % 0, Sodium 146 H, Potassium 3.0 L, Chloride 98, Carbon Dioxide 26.0, Anion Gap 22 H, BUN 9, Creatinine 0.82, Estim Creat Clear Calc 117.08, Est GFR (MDRD) Non-Af 104, BUN/Creatinine Ratio 10.7, Glucose 97, Calcium 9.2
--- NOTE | 2025-04-20 13:20 | CT_ITS ---
PROCEDURE: ABDOMEN/PELVIS W IV CONT ONLY 04/20/2025 REASON FOR EXAM: GROSS HEMATURIA TECHNIQUE: Procedure Code: [id number] Modality: CT Procedure: ABDOMEN/PELVIS W IV CONT ONLY Coronal and Sagittal reconstruction series were provided. CONTRAST: Isovue-300 VOLUME: 80 mL One or more dose reduction techniques were used (e.g., Automated exposure control, adjustment of the mA and/or kV according to patient size, use of iterative reconstruction technique. RADIATION DOSE SUMMARY: CTDlvol: 15.2 mGy DLP: 1428.16 mGycm COMPARISON: Prior study dated July 16, 2024. FINDINGS: Lung bases: Persistent patchy infiltrates in the lung bases. These have improved as compared to prior study. Liver: Normal size. No mass. Gallbladder: Unremarkable Spleen: Normal size. Pancreas: Diffuse fatty atrophy. Adrenals: Unremarkable Kidneys: Nonspecific bilateral perinephric stranding. Bladder: There is a 2.4 cm diverticulum along the posterior right aspect of the urinary bladder. The urinary bladder is adequately distended. Minimal bladder wall thickening Bilateral inguinal hernias containing fat slightly more prominent on the left side. Bowel: Dense barium is seen within the rectum. Appendix: The appendix is not identified. There is no inflammatory process identified in the right lower quadrant to suggest appendicitis. Lymph nodes: Unremarkable. Vasculature: Mild diffuse atherosclerotic calcifications are noted. Peritoneum / Retroperitoneum: Small volume free fluid in the pelvis nonspecific and usually physiologic in a female patient of this age. Bones: Degenerative changes of the spine. CT/Abdomen/Pelvis W IV Cont ONLY IMPRESSION: 2.4 cm right-sided bladder diverticulum. Minimally thickened gallbladder wall. The kidneys are unremarkable. Reading Location: [place] [id number]
--- NOTE | 2025-04-20 14:28 | CASEMGMT ---
Social Work SW called the sister and let her know patient may not DC today due to blood in his urine. ACE explained this is being checked. FAVIAN Ho
--- NOTE | 2025-04-20 15:47 | PN_ITS ---
Subjective Subjective Patient seen and examined with his nurse by his bedside. He had no complaints and was doing well. Plan was to discharge patient today but patient developed hematuria. He did have hematuria yesterday but subsequently resolved and was thought to be due to the condom catheter he had on. However hematuria is located again today. Plans with discharge therefore canceled and urology consulted. He has remained hemodynamically stable. Objective Data Objective Data Vital Signs: Vital Signs Temp Pulse Resp BP Pulse Ox O2 Del Method O2 Flow Rate 98.4 F 65 17 162/94 H 94 Nasal Cannula 3 04/20/25 09:51 04/20/25 14:53 04/20/25 14:51 04/20/25 14:51 04/20/25 14:51 04/20/25 14:51 04/20/25 14:51 FiO2 35 04/19/25 23:10 Oxygen Flow Rate (L/min) 3 Oxygen Delivery Method Nasal Cannula Weight: 252 lb 3.341 oz Body Mass Index (BMI) 43.2 Intake & Output: Intake and Output for Last 24 Hours 04/18/25 04/19/25 04/20/25 23:59 23:59 23:59 Intake Total 2460 / 2460 1510 / 1510 224.25 / 224.25 Output Total 800 / 800 4200 / 4200 Balance 1660 / 1660 -2690 / -2690 224.25 / 224.25 Lab / Micro Data 04/20/25 04:33 04/20/25 04:33 Labs: Laboratory Results - last 24 hr 04/19/25 18:45: Urine Color Yellow, Urine Clarity Sl. Cloudy, Urine pH 6.5, Ur Specific [place] 1.010, Urine Protein 30 H, Urine Glucose (UA) Normal, Urine Ketones Negative, Urine Occult Blood 150 H, Urine Nitrite Negative, Urine Bilirubin Negative, Urine Urobilinogen Normal, Ur Leukocyte Esterase Negative, Urine RBC 50-100 SEEN, Urine WBC 0-5 SEEN, Ur Squamous Epith Cells 0-5 SEEN, Urine Bacteria 0 SEEN, Urine Mucus 0 SEEN 04/20/25 04:33: WBC 5.6, RBC 3.45 L, Hgb 9.2 L, Hct 30.3 L, MCV 87.8, MCH 26.7 L , MCHC 30.4 L, RDW Std Deviation 48.0 H, RDW Coeff of [place] 15.2 H, Plt Count 165, MPV 9.6, Immature Gran % (Auto) 0.500, Neut % (Auto) 64.3, Lymph % (Auto) 15.3 L , [place] % (Auto) 15.3 H, Eos % (Auto) 4.1, Baso % (Auto) 0.5, Absolute Neuts (auto) 3.6, Absolute Lymphs (auto) 0.86, Nucleated RBC % 0, Sodium 146 H, P otassium 3.0 L, Chloride 98, Carbon Dioxide 26.0, Anion Gap 22 H, BUN 9, Creatinine 0.82, Estim Creat Clear Calc 117.08, Est GFR (MDRD) Non-Af 104, BUN/Creatinine Ratio 10.7, Glucose 97, Calcium 9.2 Micro: Microbiology 04/11/25 07:42 Blood Culture (Wb) - Anticubital Left Blood Culture - Final No growth in 5 days. 04/11/25 07:30 Blood Culture (Wb) - Left Hand Blood Culture - Final No growth in 5 days. 04/11/25 08:11 Urine, Catheterized Urine Culture - Final Culture exhibits no growth. 04/11/25 19:33 Mucosa - Nasopharyngeal Coronavirus COVID-19 PCR - Final 04/11/25 08:11 Urine, Random Legionella Antigen - Final 04/11/25 08:11 Urine, Random Streptococcus pneumoniae Antigen (M - Final 04/11/25 12:40 Nasal Secretion MRSA (PCR) - Final Meth. resistant Staph. aureus 04/11/25 11:06 Mucosa - Nasopharyngeal Respiratory Panel (PCR) - Final 04/11/25 08:12 Mucosa - Nose SARS-CoV-2, Influenza & RSV (PCR) - Final 04/11/25 08:11 Urine Catheter - Catheter Legionella Antigen - Final 04/11/25 08:11 Urine Catheter - Catheter Streptococcus pneumoniae Antigen (M - Final Radiography Diagnostic Testing: Radiology Impression Abdomen/Pelvis CT 04/20/25 13:20 IMPRESSION: 2.4 cm right-sided bladder diverticulum. Minimally thickened gallbladder wall. The kidneys are unremarkable. Reading Location: [facility] Physical Exam Const alert Constitutional Narrative: answers to his name but does not really answer questions. HEENT normocephalic and head/scalp atraumatic Eyes EOMs intact bilaterally Eyes Narrative: visually impaired Neck supple and no JVD Lymph Lymphatic: no lymphedema noted Resp Resp Narrative: Moderately diminished breath sounds bibasilar. No wheezes or crackles. on 3L of oxygen by nasal canula. Cardio regular rate, regular rhythm, S1 normal heart sound, S2 normal heart sound and no murmurs GI normal to inspection, nondistended, normoactive bowel sounds, soft to palpation and non-tender Extremity normal capillary refill General Extremity: no tenderness to palpation of joints or extremities Skin General Skin Exam: no breakdown Neuro no focal motor deficits Neuro Narrative: alert, communicative Motor Exam: general weakness Psych Psych Narrative: flat affect Assessment & Plan Assessment/Plan (1) Severe sepsis: (2) Acute hypoxemic respiratory failure: (3) Pneumonia: PLAN: Plan #Acute hypoxic and hypercapnic respiratory failure due to aspiration pneumonia * Remains on 3L of oxygen by nasal cannula. Concern for aspiration pneumonia. Speech therapy on board * Breathing treatments bronchodilators. Titrate oxygen to maintain saturation above 90%. Patient counseled about importance of BiPAP and he is willing to tolerated and trial it again. * Pulmonology on board. MRSA screen positive but respiratory and blood cultures are negative so far. Hypercapnia thought to be benzodiazepine use which resulted in respiratory depression. He did receive flumazenil and scheduled benzos discontinued. * switched to PO doxycycline, PO cefdinir and flagyl for 5mroe days of antibiotics, per ID * Sputum cultures grew MRSA from 04/11/2025. * Per director fixed income to complete 14 days of antibiotic therapy. * #Sepsis sepsis due to aspiration pneumonia: * As above. ID consulted as he may need to complete the antibiotics on outpatient basis. * ID reviewed patient and switched antibiotics to p.o. doxycycline, cefdinir and Flagyl for 5 more days of antibiotics. #Hematuria * Patient developed hematuria yesterday and it recurred again today. Was therefore consulted urology. DC Lovenox and hold aspirin. * #GURJIT: resolved. #Adrenal insufficiency: On fludrocortisone and hydrocortisone daily #Benign essential hypertension: * on PO amlodipine, hydralazine and lisinopril which are being crushed and given in puree sauce. * on propranolol 40mg bid crushed and given in puree also #Oropharyngeal dysphagia * Had modified barium swallow today which showed evidence of dysphagia * Recommendation is for him to be on puréed texture diet with mildly thick liquids. Management as per speech therapy. * #Hypokalemia: Potassium is still 3 today. Will replace aggressively and monitor. #History of schizoaffective disorder:on benztropine #COPD and asthma: Not in exacerbation. Breathing treatments bronchodilators. #Class III obesity: BMI is 47. Complicates acute care, expected recovery and prognosis. #DVT prophylaxis: Lovenox Disposition:for DC to SNF once medically stable. Charges/Coding Visit Charges Inpatient E&M: 86364 Subs Hosp L2
[2025-04-20] MEDS: Senna/Docusate Sodium 1 Tablet 2 TABLET PO (20:26)
[2025-04-21] VITALS (14 sets, daily range): BP systolic 155–198; BP diastolic 83–100; PULSE 60–89; RESP 16–18; TEMP 36.1–37.1; O2SAT 93–94; BMI 43.0
--- NOTE | 2025-04-21 02:18 | CPS ---
Patient states that he does not want to wear the BIPAP tonight while sleeping. RN aware.
[2025-04-21] MEDS: 0.9% Saline Lock 10 ML Syringe IV ×2 (03:32→20:10)
[2025-04-21 05:01] LABS: Hematocrit 32.6 % (40-54); Hemoglobin 9.9 g/dL (13.0-16.5); Immature Granulocytes Count 0.050 X10^3/uL (0.0-0.0); Mean Corp Hgb Conc 30.4 g/dL (32-36); Mean Corpuscular Volume 88.6 fL (80-94); Mean Platelet Vol. 10.0 fl (6.2-12.0); NRBC Flagged by Analyzer 0 % (0-5); Platelet Count 167 K/mm3 (150-450); RBC Distribution Width CV 15.5 % (11.6-14.6); RBC Distribution Width SD 49.5 fl (35.1-43.9); Red Blood Count 3.68 M/mm3 (4.6-6.2); White Blood Count 6.8 K/mm3 (4.4-11.0)
[2025-04-21] MEDS: Divalproex Sodium 125 MG SPRINKLE 250 MG PO ×3 (06:02→21:34)
[2025-04-21] MEDS: Calcium (Elemental) 500 MG Tablet PO ×2 (06:02→21:36)
[2025-04-21 06:10] LABS: Anion Gap 10 (5-15); BUN 20 mg/dL (4-19); BUN/Creat Ratio 17.7 RATIO (10-20); Calcium,Total 10.3 mg/dL (7.6-11.0); Carbon Dioxide 37.0 mmol/L (21.0-32.0); Chloride 100 mmol/L (98-108); Estimated Creatinine Clearance 86.11 ml/min (50-250); Glucose 125 mg/dL (70-99); Potassium 3.4 mmol/L (3.3-5.1)
--- NOTE | 2025-04-21 07:09 | PCM.CONS.B ---
Consult Date of Consult: 04/21/25 Reason for Consult 55-year-old male with a episode of small amount of bleeding from the urethra CT scan was done essentially was completely normal I do not see any findings of pathologic, patient is stable he can follow-up as an outpatient for further workup for outpatient cystoscopy no emergent cystoscopy is needed CAT scan looks okay call me with questions
[2025-04-21] MEDS: Aspirin E.C. 81 MG Tablet PO (10:33)
[2025-04-21] MEDS: Lactobacillis Acidophilus 1 CAP PO (10:34)
[2025-04-21] MEDS: Fluticasone 0.05% 1 SPRAY NASAL.SRY NASAL (10:36)
[2025-04-21] MEDS: Senna/Docusate Sodium 1 Tablet 2 TABLET PO ×2 (10:37→21:33)
[2025-04-21] MEDS: Cholecalciferol (VIT D3) 25 MCG TABLET (1,000 UNITS) 50 MCG PO (10:38)
--- NOTE | 2025-04-21 14:58 | TREXTCAR_ITS ---
Diet Diet Order/Speech Therapy: INPATIENT Hospital Diet / Speech Therapy Order(s) 04/18/25 09:48 Diet: Regular - General Food consistency:: Pureed Liquid Consistency:: [place]/Mildly Thick Diet Comments: allergies: NUTS Speech Therapy Comments: TOTAL FEED, NO STRAWS, meds whole in 1 at a time Routine Orders/Code Status Enema Type: [place] Enema Frequency: Daily PRN Suppository Frequency: Daily PRN DC O2, CPAP, BIPAP needs Home O2 Discharge instructions: Yes Type of respiratory needs?: Oxygen Oxygen frequency: Continuous Continuous oxygen liters per minute: 3 Wound(s) Bilateral knee: Wound Type: Abrasion Therapies Weight Bearing: Weight bearing as tolerated Physical Therapy: Eval and Treat Occupational Therapy: Eval and Treat Problem/Diagnosis (1) Severe sepsis: Status: Acute Code(s): A41.9 - Sepsis, unspecified organism; R65.20 - Severe sepsis without septic shock (2) Acute hypoxemic respiratory failure: Status: Acute Code(s): J96.01 - Acute respiratory failure with hypoxia (3) Pneumonia: Status: Acute Code(s): J18.9 - Pneumonia, unspecified organism Plan #Acute hypoxic and hypercapnic respiratory failure due to aspiration pneumonia * Remains on 3L of oxygen by nasal cannula. Concern for aspiration pneumonia. Speech therapy on board * Breathing treatments bronchodilators. Titrate oxygen to maintain saturation above 90%. Patient counseled about importance of BiPAP and he is willing to tolerated and trial it again. * Pulmonology on board. MRSA screen positive but respiratory and blood cultures are negative so far. Hypercapnia thought to be benzodiazepine use which resulted in respiratory depression. He did receive flumazenil and scheduled benzos discontinued. * switched to PO doxycycline, PO cefdinir and flagyl for 5mroe days of antibiotics, per ID * Sputum cultures grew MRSA from 04/11/2025. * Per recreation engineer to complete 14 days of antibiotic therapy. * #Sepsis sepsis due to aspiration pneumonia: * As above. ID consulted as he may need to complete the antibiotics on outpatient basis. * ID reviewed patient and switched antibiotics to p.o. doxycycline, cefdinir and Flagyl for 5 more days of antibiotics. #Hematuria * Patient developed hematuria yesterday and it recurred again today. Was therefore consulted urology. DC Lovenox and hold aspirin. * #GURJIT: resolved. #Adrenal insufficiency: On fludrocortisone and hydrocortisone daily #Benign essential hypertension: * on PO amlodipine, hydralazine and lisinopril which are being crushed and given in puree sauce. * on propranolol 40mg bid crushed and given in puree also #Oropharyngeal dysphagia * Had modified barium swallow today which showed evidence of dysphagia * Recommendation is for him to be on puréed texture diet with mildly thick liquids. Management as per speech therapy. * #Hypokalemia: Potassium is 3.4 today. Will replace aggressively and monitor. #History of schizoaffective disorder:on benztropine #COPD and asthma: Not in exacerbation. Breathing treatments bronchodilators. #Class III obesity: BMI is 47. Complicates acute care, expected recovery and prognosis. #DVT prophylaxis: Lovenox Disposition:DC to SNF today Allergies/Procedures Done in Hospital Allergies acetic acid Allergy (Verified 04/11/25 07:22) PT UNABLE TO RESPOND-NEEDS F/U nut - unspecified (nuts) Allergy (Verified 04/11/25 07:22) PT UNABLE TO RESPOND-NEEDS F/U Penicillins Allergy (Verified 04/11/25 11:20) PT UNABLE TO RESPOND-NEEDS F/U patient tolerated cefepime in ER 04/11/25 risperidone Allergy (Verified 04/11/25 07:22) PT UNABLE TO RESPOND-NEEDS F/U Type of Care/Length of Stay Estimated LOS: More Than 30 Days Type of Care Needed: Intermediate Rehab Potential: Fair Prognosis: Fair Additional Orders/Day of Discharge Day of Discharge: 04/21/25 Dietary and Speech Recommendations Dietitian Recommendations/Changes: Continue regular diet per [employer] recommendations. Will monitor weight trends. PO needs to be established. Discharge Plan Admission Admit Date/Time: 04/11/25 09:04 Primary Reason for Your Visit: sepsis, respiratory failure due to aspiration pneumonia Attending Provider: Buffy Kaplan Primary Care Provider: Lex Jiang Consulting Providers: Cayetano Manzo; Jacob Cannon; Dony Monte Instructions Patient Instructions: Dysphagia Aspiration Tx Discharge Orders/Prescriptions Prescriptions: New metronidazole 500 mg Tablet 500 mg PO TID Qty: 15 0RF doxycycline monohydrate 100 mg Capsule 100 mg PO BID Qty: 10 0RF cefdinir 300 mg Capsule 300 mg PO Q12 Qty: 10 0RF Continued acetaminophen [Tylenol] 325 mg tablet 650 mg PO Q4H PRN (Reason: fever or pain) albuterol sulfate 0.63 mg/3 mL solution for nebulization 0.63 mg inhalation Q4H PRN (Reason: Shortness Of Breath) cyanocobalamin (vitamin B-12) 1,000 mcg Tablet 1,000 mcg PO WE benztropine 1 mg Tablet 1 mg PO BID fluticasone propionate [Flonase Allergy Relief] 50 mcg/actuation [place],Suspension 1 spray INTRANASAL DAILY fludrocortisone 0.1 mg Tablet 0.1 mg PO DAILY escitalopram oxalate [Lexapro] 10 mg Tablet 10 mg PO BID quetiapine [Seroquel XR] 300 mg Tablet Extended Release 24 Hr 600 mg PO QHS Fanapt 6 mg tablet 6 mg PO DAILY Fanapt 12 mg tablet 12 mg PO DAILY loperamide 2 mg Capsule 2 mg PO Q4H PRN (Reason: STOOL) aspirin 81 mg Tablet,Delayed Release (Dr/Ec) 81 mg PO DAILY magnesium hydroxide [Milk of Magnesia] 400 mg/5 mL Suspension 30 ml PO Q24H PRN (Reason: Constipation) propranolol 80 mg capsule,extended release 24 hr 80 mg PO DAILY cholecalciferol (vitamin D3) [Vitamin D3] 50 mcg (2,000 unit) Tablet 50 mcg PO DAILY hydralazine 10 mg tablet 10 mg PO TID lorazepam [Ativan] 2 mg Tablet 2 mg PO Q6H PRN (Reason: Agitation) Qty: 6 0RF docusate sodium [Colace] 100 mg capsule 100 mg PO BID polyethylene glycol 3350 [ClearLax] 17 gram/dose powder 17 g PO DAILY ergocalciferol (vitamin D2) 1,250 mcg (50,000 unit) capsule 1,250 mcg PO QWEEK calcium carbonate 500 mg calcium (1,250 mg) Tablet 500 mg PO TID 30 Days Qty: 90 0RF ferrous sulfate [FeroSul] 325 mg (65 mg iron) Tablet 325 mg PO QODAY 30 Days Qty: 0 0RF folic acid 400 mcg tablet 1 mg PO DAILY hydrocortisone 5 mg tablet 15 mg PO DAILY lisinopril 20 mg tablet 20 mg PO DAILY Probiotic Blend 2 billion cell-50 mg capsule 1 cap PO DAILY Rx Instructions: give with meal/snack pantoprazole 40 mg tablet,delayed release (DR/EC) 40 mg PO Q12H divalproex 125 mg capsule, delayed rel sprinkle 250 mg PO Q8H lorazepam 2 mg/mL syringe 2 mg IM Q6H PRN (Reason: agitation) hydrochlorothiazide 25 mg tablet 25 mg PO DAILY potassium chloride 10 mEq capsule, extended release 30 meq PO DAILY Patient Comments: [NO ORIGINAL SIG] hydrocortisone 10 mg tablet 10 mg PO DAILY fluticasone propion-salmeterol [Advair Diskus] 250-50 mcg/dose blister with device 1 ea inhalation BID lorazepam [Ativan] 2 mg tablet 2 mg PO TID amlodipine 5 mg tablet 5 mg PO DAILY Senna Plus 8.6-50 mg capsule 2 tab-cap PO BID tiotropium bromide 18 mcg capsule, w/inhalation device 1 cap inhalation DAILY CPAP - Continuous Positive Airway Pressure([facility] INFORMATIONAL USE ONLY) Patient Comments: Patient has CPAP at home but does not use Referrals / Follow Up: Dony Monte MD [Med Staff - Active Staff, Urology] - Within 2 Weeks Lex Jiang MD [Primary Care Provider, Medical] - Within 1 Week Disposition Disposition (needs filled in before D/C Order can be placed): Residential Facility
--- NOTE | 2025-04-21 15:00 | DS.PCM_ITS ---
Providers Date of Admission: 04/11/25 Date of Discharge: 04/21/25 Primary Care Physician: Dr. Lex Jiang MD Consultations 04/11/25 11:14 Consult: Shell Sorter / Pulmonary Medicine Routine Consulting Provider: [facility] Reason for Consult: Respiratory failure EMERGENT Consult: No Notified: Yes Date Notified: 04/11/25 Time Notified: 09:09 Method of Notification: ED Physician Initiated 04/19/25 10:11 Consult: Infectious Disease Routine Consulting Provider: Jacob Cannon Reason for Consult: MRSA pneumonia EMERGENT Consult: No Notified: Yes Date Notified: 04/19/25 Time Notified: 10:11 Method of Notification: Text 04/20/25 11:38 Consult: Urology Routine Consulting Provider: Dony Monte Reason for Consult: hematuria EMERGENT Consult: No Notified: Yes Date Notified: 04/20/25 Time Notified: 11:38 Method of Notification: Text Reason For Visit: SEPSIS SECONDARY TO ASPIRATION PNEUMONIA Diagnosis Discharge Diagnosis (1) Severe sepsis: Status: Acute Code(s): A41.9 - Sepsis, unspecified organism; R65.20 - Severe sepsis without septic shock (2) Acute hypoxemic respiratory failure: Status: Acute Code(s): J96.01 - Acute respiratory failure with hypoxia (3) Pneumonia: Status: Acute Code(s): J18.9 - Pneumonia, unspecified organism Plan #Acute hypoxic and hypercapnic respiratory failure due to aspiration pneumonia * Remains on 3L of oxygen by nasal cannula. Concern for aspiration pneumonia. Speech therapy on board * Breathing treatments bronchodilators. Titrate oxygen to maintain saturation above 90%. Patient counseled about importance of BiPAP and he is willing to tolerated and trial it again. * Pulmonology on board. MRSA screen positive but respiratory and blood cultures are negative so far. Hypercapnia thought to be benzodiazepine use which resulted in respiratory depression. He did receive flumazenil and scheduled benzos discontinued. * switched to PO doxycycline, PO cefdinir and flagyl for 5mroe days of antibiotics, per ID * Sputum cultures grew MRSA from 04/11/2025. * Per lunchroom supervisor to complete 14 days of antibiotic therapy. * #Sepsis sepsis due to aspiration pneumonia: * As above. ID consulted as he may need to complete the antibiotics on outpatient basis. * ID reviewed patient and switched antibiotics to p.o. doxycycline, cefdinir and Flagyl for 5 more days of antibiotics. #Hematuria * Patient developed hematuria yesterday and it recurred again today. Was therefore consulted urology. DC Lovenox and hold aspirin. * #GURJIT: resolved. #Adrenal insufficiency: On fludrocortisone and hydrocortisone daily #Benign essential hypertension: * on PO amlodipine, hydralazine and lisinopril which are being crushed and given in puree sauce. * on propranolol 40mg bid crushed and given in puree also #Oropharyngeal dysphagia * Had modified barium swallow today which showed evidence of dysphagia * Recommendation is for him to be on puréed texture diet with mildly thick liquids. Management as per speech therapy. * #Hypokalemia: Potassium is 3.4 today. Will replace aggressively and monitor. #History of schizoaffective disorder:on benztropine #COPD and asthma: Not in exacerbation. Breathing treatments bronchodilators. #Class III obesity: BMI is 47. Complicates acute care, expected recovery and prognosis. #DVT prophylaxis: Lovenox Disposition:DC to SNF today Medications at Discharge Home Medications albuterol sulfate 0.63 mg/3 mL solution for nebulization 0.63 mg inhalation Q4H PRN Shortness Of Breath 06/04/22 benztropine 1 mg tablet 1 mg PO BID 06/04/22 cyanocobalamin (vitamin B-12) 1,000 mcg tablet 1,000 mcg PO WE SUPPLEMENT 06/04/22 escitalopram oxalate 10 mg tablet (Lexapro) 10 mg PO BID MENTAL HEALTH 06/04/22 fludrocortisone 0.1 mg tablet 0.1 mg PO DAILY low cortisol 06/04/22 fluticasone propionate 50 mcg/actuation nasal spray,suspension (Flonase Allergy Relief) 1 spray intranasal DAILY ALLERGIES 06/04/22 iloperidone 12 mg tablet (Fanapt) 12 mg PO DAILY MENTAL HEALTH 06/04/22 iloperidone 6 mg tablet (Fanapt) 6 mg PO DAILY MENTAL HEALTH 06/04/22 quetiapine 300 mg tablet,extended release 24 hr (Seroquel XR) 600 mg PO QHS MENTAL HEALTH 06/04/22 aspirin 81 mg tablet,delayed release 81 mg PO DAILY HEART HEALTH 07/24/22 cholecalciferol (vitamin D3) 50 mcg (2,000 unit) tablet (Vitamin D3) 50 mcg PO DAILY SUPPLEMENT 07/24/22 loperamide 2 mg capsule 2 mg PO Q4H PRN STOOL 07/24/22 magnesium hydroxide 400 mg/5 mL oral suspension (Milk of Magnesia) 30 ml PO Q24H PRN Constipation 07/24/22 propranolol 80 mg capsule,24 hr,extended release 80 mg PO DAILY BLOOD PRESSURE 07/24/22 L.acidophil-L.casei-B.bifid-B.longum-FOS 2 billion cell-50 mg capsule (Probiotic Blend) 1 cap PO DAILY supplement 06/24/24 divalproex 125 mg capsule,delayed release sprinkle 250 mg PO Q8H schizo 06/24/24 folic acid 400 mcg tablet 1 mg PO DAILY supplement 06/24/24 hydrocortisone 5 mg tablet 15 mg PO DAILY adrenal insufficiency 06/24/24 lisinopril 20 mg tablet 20 mg PO DAILY blood pressure 06/24/24 pantoprazole 40 mg tablet,delayed release 40 mg PO Q12H GERD 06/24/24 hydralazine 10 mg tablet 10 mg PO TID blood pressure 07/16/24 lorazepam 2 mg tablet (Ativan) 2 mg PO Q6H PRN Agitation #6 tabs 07/20/24 hydrochlorothiazide 25 mg tablet 25 mg PO DAILY diuretic 08/17/24 lorazepam 2 mg/mL injection syringe 2 mg IM Q6H PRN agitation 08/17/24 potassium chloride 10 mEq capsule,extended release 30 meq PO DAILY hypokalemia 08/17/24 acetaminophen 325 mg tablet (Tylenol) 650 mg PO Q4H PRN fever or pain 10/11/24 docusate sodium 100 mg capsule (Colace) 100 mg PO BID stool soft 11/18/24 ergocalciferol (vitamin D2) 1,250 mcg (50,000 unit) capsule 1,250 mcg PO QWEEK suppl 11/18/24 polyethylene glycol 3350 17 gram/dose oral powder (ClearLax) 17 g PO DAILY constipation 11/18/24 calcium carbonate 500 mg PO TID SUPPLEMENT 30 days #90 tabs 11/23/24 ferrous sulfate 325 mg (65 mg iron) tablet (FeroSul) 325 mg PO QODAY SUPPLEMENT 30 days #0 tabs 11/23/24 amlodipine 5 mg tablet 5 mg PO DAILY hypertension 04/12/25 fluticasone 250 mcg-salmeterol 50 mcg/dose blistr powdr for inhalation (Advair Diskus) 1 ea inhalation BID COPD 04/12/25 hydrocortisone 10 mg tablet 10 mg PO DAILY adrenal insufficiency 04/12/25 lorazepam 2 mg tablet (Ativan) 2 mg PO TID generalized anxiety disorder 04/12/25 sennosides 8.6 mg-docusate sodium 50 mg capsule (Senna Plus) 2 tab-cap PO BID constipation 04/12/25 tiotropium bromide 18 mcg capsule with inhalation device 1 cap inhalation DAILY asthma 04/12/25 CPAP - Continuous Positive Airway Pressure([facility] INFORMATIONAL USE ONLY) unknown 04/17/25 cefdinir 300 mg capsule 300 mg PO Q12 #10 caps 04/21/25 doxycycline monohydrate 100 mg capsule 100 mg PO BID #10 caps 04/21/25 metronidazole 500 mg tablet 500 mg PO TID #15 tabs 04/21/25 Hospital Course Operations None Procedures 2-D Echocardiogram Summary of Care Provided Minutes Spent on Discharge: 45 Hospital Course: Patient is a 55-year-old male with a past medical history as outlined residence in a long term who was admitted through the ED on 04/11/2025 with a complaint of shortness of breath. He had been found to be hypoxic with saturation in the 70s and had had several episodes of vomiting. Imaging done showed right middle and lower lobe airspace disease. He was admitted to be managed for sepsis and acute hypoxic respiratory failure due to probable aspiration pneumonia. Patient apparently had a complaint of cough. He was initially admitted to the ICU and pulmonology was consulted. He was started on broad-spectrum antibiotics and placed on noninvasive ventilation. Patient had a prolonged and protracted hospital course. As stated he was managed for acute hypoxic respiratory failure and sepsis due to aspiration pneumonia. Speech therapy was also consulted. Critical care was consulted as he was initially admitted to the ICU. He was transferred out of the ICU but had to be transferred back to the ICU again for BiPAP. MRSA screen was positive. Patient had hypercapnia which was thought to be due to benzodiazepine use. Scheduled benzodiazepines were discontinued. he was eventually weaned off of BiPAP and transferred out of the ICU. He was maintained on oxygen by nasal cannula. ID was consulted and IV antibiotics were transitioned to oral cefepime, doxycycline and metronidazole. He was discharged with a 5-day course of these antibiotics. He was discharged on 04/21/2025. Hospital course was complicated by hematuria which had resolved by time of discharge. Urology was consulted and recommended that patient follow-up on outpatient basis. Patient was therefore discharged to his long term on 04/21/2025. He is follow-up with his primary care doctor and follow-up with urology on outpatient basis. Patient seen and examined prior to discharge. He was lying calmly in bed. He really would not answer questions. He had had an episode of emesis but was given Zofran and this resolved. Patient pulled out his PICC line and his peripheral line as well. Unable to do comprehensive review of systems. Physical Exam Const alert Constitutional Narrative: answers to his name but does not really answer questions. HEENT normocephalic and head/scalp atraumatic Mouth: oral and palatal mucosa normal Eyes EOMs intact bilaterally Eyes Narrative: visually impaired Neck supple and no JVD Lymph Lymphatic: no lymphedema noted Resp Resp Narrative: Moderately diminished breath sounds bibasilar. No wheezes or crackles. on 3L of oxygen by nasal canula. Cardio regular rate, regular rhythm, S1 normal heart sound, S2 normal heart sound and no murmurs Cardio Narrative: tachycardic GI normal to inspection, nondistended, normoactive bowel sounds, soft to palpation and non-tender Extremity normal capillary refill General Extremity: no tenderness to palpation of joints or extremities Skin General Skin Exam: no breakdown Neuro no focal motor deficits Neuro Narrative: alert Motor Exam: general weakness Psych Psych Narrative: flat affect Weight / BMI Weight Weight: 250 lb 7.122 oz Body Mass Index (BMI) 43.0 ABG / Lab / Microbiology Data 04/21/25 04:37 04/21/25 04:37 Laboratory: Laboratory Results - last 24 hr 04/21/25 04:37: WBC 6.8, RBC 3.68 L, Hgb 9.9 L, Hct 32.6 L, MCV 88.6, MCH 26.9 L , MCHC 30.4 L, RDW Std Deviation 49.5 H, RDW Coeff of Eleanor 15.5 H, Plt Count 167, MPV 10.0, Immature Gran % (Auto) 0.700, Neut % (Auto) 73.4 H, Lymph % (Auto) 11.1 L, [place] % (Auto) 11.5 H, Eos % (Auto) 2.6, Baso % (Auto) 0.7, Absolute Neuts (auto) 5.0, Absolute Lymphs (auto) 0.76 L, Nucleated RBC % 0, Sodium 147 H , Potassium 3.4, Chloride 100, Carbon Dioxide 37.0 H, Anion Gap 10, BUN 20 H, Creatinine 1.11, Estim Creat Clear Calc 86.11, Est GFR (MDRD) Non-Af 78, BUN/Creatinine Ratio 17.7, Glucose 125 H, Calcium 10.3 Microbiology: Microbiology 04/19/25 18:45 Urine, Clean Catch Urine Culture - Preliminary Culture exhibits no growth. 04/11/25 07:42 Blood Culture (Wb) - Anticubital Left Blood Culture - Final No growth in 5 days. 04/11/25 07:30 Blood Culture (Wb) - Left Hand Blood Culture - Final No growth in 5 days. 04/11/25 08:11 Urine, Catheterized Urine Culture - Final Culture exhibits no growth. 04/11/25 19:33 Mucosa - Nasopharyngeal Coronavirus COVID-19 PCR - Final 04/11/25 08:11 Urine, Random Legionella Antigen - Final 04/11/25 08:11 Urine, Random Streptococcus pneumoniae Antigen (M - Final 04/11/25 12:40 Nasal Secretion MRSA (PCR) - Final Meth. resistant Staph. aureus 04/11/25 11:06 Mucosa - Nasopharyngeal Respiratory Panel (PCR) - Final 04/11/25 08:12 Mucosa - Nose SARS-CoV-2, Influenza & RSV (PCR) - Final 04/11/25 08:11 Urine Catheter - Catheter Legionella Antigen - Final 04/11/25 08:11 Urine Catheter - Catheter Streptococcus pneumoniae Antigen (M - Final D/C Instructions Discharge Activity: Return to Normal Activity Weight Bearing Status: Weight bearing as tolerated Call your doctor if you observe: Fever of 101 or Higher, Shortness of breath, Dizziness, Swelling in the ankles and Chest pain DC O2, CPAP, BIPAP Needs Home O2 Discharge instructions: Yes Type of respiratory needs?: Oxygen Oxygen frequency: Continuous Continuous oxygen liters per minute: 3 DC home with Oxygen: Yes Home O2 MD Review: I have reviewed the oxygen testing, and the patient qualifies for home oxygen equipment and portability. The patient is mobile in the home and the community. Meaningful Use Info Meaningful Use Meaningful Use Diagnoses (Choose all that apply): None applicable Discharge Plan Admission Admit Date/Time: 04/11/25 09:04 Primary Reason for Your Visit: sepsis, respiratory failure due to aspiration pneumonia Attending Provider: Buffy Kaplan Primary Care Provider: Lex Jiang Consulting Providers: Cayetano Manzo; Jacob Cannon; Dony Monte Instructions Patient Instructions: Dysphagia Aspiration Tx Discharge Orders/Prescriptions Prescriptions: New metronidazole 500 mg Tablet 500 mg PO TID Qty: 15 0RF doxycycline monohydrate 100 mg Capsule 100 mg PO BID Qty: 10 0RF cefdinir 300 mg Capsule 300 mg PO Q12 Qty: 10 0RF Continued acetaminophen [Tylenol] 325 mg tablet 650 mg PO Q4H PRN (Reason: fever or pain) albuterol sulfate 0.63 mg/3 mL solution for nebulization 0.63 mg inhalation Q4H PRN (Reason: Shortness Of Breath) cyanocobalamin (vitamin B-12) 1,000 mcg Tablet 1,000 mcg PO WE benztropine 1 mg Tablet 1 mg PO BID fluticasone propionate [Flonase Allergy Relief] 50 mcg/actuation [place],Suspension 1 spray INTRANASAL DAILY fludrocortisone 0.1 mg Tablet 0.1 mg PO DAILY escitalopram oxalate [Lexapro] 10 mg Tablet 10 mg PO BID quetiapine [Seroquel XR] 300 mg Tablet Extended Release 24 Hr 600 mg PO QHS Fanapt 6 mg tablet 6 mg PO DAILY Fanapt 12 mg tablet 12 mg PO DAILY loperamide 2 mg Capsule 2 mg PO Q4H PRN (Reason: STOOL) aspirin 81 mg Tablet,Delayed Release (Dr/Ec) 81 mg PO DAILY magnesium hydroxide [Milk of Magnesia] 400 mg/5 mL Suspension 30 ml PO Q24H PRN (Reason: Constipation) propranolol 80 mg capsule,extended release 24 hr 80 mg PO DAILY cholecalciferol (vitamin D3) [Vitamin D3] 50 mcg (2,000 unit) Tablet 50 mcg PO DAILY hydralazine 10 mg tablet 10 mg PO TID lorazepam [Ativan] 2 mg Tablet 2 mg PO Q6H PRN (Reason: Agitation) Qty: 6 0RF docusate sodium [Colace] 100 mg capsule 100 mg PO BID polyethylene glycol 3350 [ClearLax] 17 gram/dose powder 17 g PO DAILY ergocalciferol (vitamin D2) 1,250 mcg (50,000 unit) capsule 1,250 mcg PO QWEEK calcium carbonate 500 mg calcium (1,250 mg) Tablet 500 mg PO TID 30 Days Qty: 90 0RF ferrous sulfate [FeroSul] 325 mg (65 mg iron) Tablet 325 mg PO QODAY 30 Days Qty: 0 0RF folic acid 400 mcg tablet 1 mg PO DAILY hydrocortisone 5 mg tablet 15 mg PO DAILY lisinopril 20 mg tablet 20 mg PO DAILY Probiotic Blend 2 billion cell-50 mg capsule 1 cap PO DAILY Rx Instructions: give with meal/snack pantoprazole 40 mg tablet,delayed release (DR/EC) 40 mg PO Q12H divalproex 125 mg capsule, delayed rel sprinkle 250 mg PO Q8H lorazepam 2 mg/mL syringe 2 mg IM Q6H PRN (Reason: agitation) hydrochlorothiazide 25 mg tablet 25 mg PO DAILY potassium chloride 10 mEq capsule, extended release 30 meq PO DAILY Patient Comments: [NO ORIGINAL SIG] hydrocortisone 10 mg tablet 10 mg PO DAILY fluticasone propion-salmeterol [Advair Diskus] 250-50 mcg/dose blister with device 1 ea inhalation BID lorazepam [Ativan] 2 mg tablet 2 mg PO TID amlodipine 5 mg tablet 5 mg PO DAILY Senna Plus 8.6-50 mg capsule 2 tab-cap PO BID tiotropium bromide 18 mcg capsule, w/inhalation device 1 cap inhalation DAILY CPAP - Continuous Positive Airway Pressure([facility]FORM[facility] USE ONLY) Patient Comments: Patient has CPAP at home but does not use Referrals / Follow Up: Dony Monte MD [Med Staff - Active Staff, Urology] - Within 2 Weeks Lex Jiang MD [Primary Care Provider, Medical] - Within 1 Week Disposition Disposition (needs filled in before D/C Order can be placed): [facility] Charges/Coding Visit Charges Inpatient E&M: 02844 Disch Hosp >30min
--- NOTE | 2025-04-21 16:04 | CASEMGMT ---
Discharge Planning Discharge orders, signed med list, and transport time faxed to [facility]. Fax confirmation rec'd. Physicians will transport pt by cot at 4p. Nursing and SW updated. VM left for pts sister/guardian (Courtney). Jeannette Katz DC Planning Asst.
--- NOTE | 2025-04-21 16:05 | PHA.DC.MR.R ---
Pharmacy [place] Med Reconciliation Pharmacy Service has performed discharge medication reconciliation for this patient. The patient's discharge medication list was reviewed for discrepancies and discrepancies were resolved. Medications at Discharge Home Medications albuterol sulfate 0.63 mg/3 mL solution for nebulization 0.63 mg inhalation Q4H PRN Shortness Of Breath 06/04/22 benztropine 1 mg tablet 1 mg PO BID 06/04/22 cyanocobalamin (vitamin B-12) 1,000 mcg tablet 1,000 mcg PO WE SUPPLEMENT 06/04/22 escitalopram oxalate 10 mg tablet (Lexapro) 10 mg PO BID MENTAL HEALTH 06/04/22 fludrocortisone 0.1 mg tablet 0.1 mg PO DAILY low cortisol 06/04/22 fluticasone propionate 50 mcg/actuation nasal spray,suspension (Flonase Allergy Relief) 1 spray intranasal DAILY ALLERGIES 06/04/22 iloperidone 12 mg tablet (Fanapt) 12 mg PO DAILY MENTAL HEALTH 06/04/22 iloperidone 6 mg tablet (Fanapt) 6 mg PO DAILY MENTAL HEALTH 06/04/22 quetiapine 300 mg tablet,extended release 24 hr (Seroquel XR) 600 mg PO QHS MENTAL HEALTH 06/04/22 aspirin 81 mg tablet,delayed release 81 mg PO DAILY HEART HEALTH 07/24/22 cholecalciferol (vitamin D3) 50 mcg (2,000 unit) tablet (Vitamin D3) 50 mcg PO DAILY SUPPLEMENT 07/24/22 loperamide 2 mg capsule 2 mg PO Q4H PRN STOOL 07/24/22 magnesium hydroxide 400 mg/5 mL oral suspension (Milk of Magnesia) 30 ml PO Q24H PRN Constipation 07/24/22 propranolol 80 mg capsule,24 hr,extended release 80 mg PO DAILY BLOOD PRESSURE 07/24/22 L.acidophil-L.casei-B.bifid-B.longum-FOS 2 billion cell-50 mg capsule (Probiotic Blend) 1 cap PO DAILY supplement 06/24/24 divalproex 125 mg capsule,delayed release sprinkle 250 mg PO Q8H schizo 06/24/24 folic acid 400 mcg tablet 1 mg PO DAILY supplement 06/24/24 hydrocortisone 5 mg tablet 15 mg PO DAILY adrenal insufficiency 06/24/24 lisinopril 20 mg tablet 20 mg PO DAILY blood pressure 06/24/24 pantoprazole 40 mg tablet,delayed release 40 mg PO Q12H GERD 06/24/24 hydralazine 10 mg tablet 10 mg PO TID blood pressure 07/16/24 hydrochlorothiazide 25 mg tablet 25 mg PO DAILY diuretic 08/17/24 lorazepam 2 mg/mL injection syringe 2 mg IM Q6H PRN agitation 08/17/24 potassium chloride 10 mEq capsule,extended release 30 meq PO DAILY hypokalemia 08/17/24 acetaminophen 325 mg tablet (Tylenol) 650 mg PO Q4H PRN fever or pain 10/11/24 docusate sodium 100 mg capsule (Colace) 100 mg PO BID stool soft 11/18/24 ergocalciferol (vitamin D2) 1,250 mcg (50,000 unit) capsule 1,250 mcg PO QWEEK suppl 11/18/24 polyethylene glycol 3350 17 gram/dose oral powder (ClearLax) 17 g PO DAILY constipation 11/18/24 calcium carbonate 500 mg PO TID SUPPLEMENT 30 days #90 tabs 11/23/24 ferrous sulfate 325 mg (65 mg iron) tablet (FeroSul) 325 mg PO QODAY SUPPLEMENT 30 days #0 tabs 11/23/24 amlodipine 5 mg tablet 5 mg PO DAILY hypertension 04/12/25 fluticasone 250 mcg-salmeterol 50 mcg/dose blistr powdr for inhalation (Advair Diskus) 1 ea inhalation BID COPD 04/12/25 hydrocortisone 10 mg tablet 10 mg PO DAILY adrenal insufficiency 04/12/25 lorazepam 2 mg tablet (Ativan) 2 mg PO TID generalized anxiety disorder 04/12/25 sennosides 8.6 mg-docusate sodium 50 mg capsule (Senna Plus) 2 tab-cap PO BID constipation 04/12/25 tiotropium bromide 18 mcg capsule with inhalation device 1 cap inhalation DAILY asthma 04/12/25 CPAP - Continuous Positive Airway Pressure([facility] INFORMATIONAL USE ONLY) unknown 04/17/25 cefdinir 300 mg capsule 300 mg PO Q12 #10 caps 04/21/25 doxycycline monohydrate 100 mg capsule 100 mg PO BID #10 caps 04/21/25 metronidazole 500 mg tablet 500 mg PO TID #15 tabs 04/21/25
== END 2025-04-22 01:00 | disposition skilled nursing facility (03) | DRG 871 ==
LOC: ED 09:10 → ICU 10:37 → PCU 04-12 18:16 → ICU 04-14 18:37 → PCU 04-18 12:14
PROVIDERS: Internal Medicine; Internal Medicine Critical Care Medicine; Admitting Provider Internal Medicine; Emergency Provider Emergency Medicine; PCP Family Medicine; Visit Provider Student in an Organized Health Care Education/Training Program
DX: A41.9 Sepsis, unspecified organism (principal); J96.01 Acute respiratory failure with hypoxia; J96.02 Acute respiratory failure with hypercapnia; J15.212 Pneumonia due to Methicillin resistant Staphylococcus aureus; J69.0 Pneumonitis due to inhalation of food and vomit; J44.0 Chronic obstructive pulmonary disease with (acute) lower respiratory infection; Z68.42 Body mass index [BMI] 45.0-49.9, adult; E27.40 Unspecified adrenocortical insufficiency; E87.3 Alkalosis; N17.9 Acute kidney failure, unspecified; E87.0 Hyperosmolality and hypernatremia; R13.12 Dysphagia, oropharyngeal phase; F25.9 Schizoaffective disorder, unspecified; D64.9 Anemia, unspecified; I10 Essential (primary) hypertension; K21.9 Gastro-esophageal reflux disease without esophagitis; R65.20 Severe sepsis without septic shock; E66.01 Morbid (severe) obesity due to excess calories; E87.6 Hypokalemia; E66.813 Obesity, class 3; Z87.891 Personal history of nicotine dependence; Z79.52 Long term (current) use of systemic steroids; Z82.5 Family history of asthma and other chronic lower respiratory diseases; Z66 Do not resuscitate; F81.9 Developmental disorder of scholastic skills, unspecified; Z79.51 Long term (current) use of inhaled steroids; Z79.899 Other long term (current) drug therapy; R31.0 Gross hematuria
CPT/HCPCS: 36415; 36569; 36600; 71045; 74177; 74230; 80048; 80076; 80164; 80202; 81001; 82010; 82803; 82962; 83605; 83690; 83735; 83880; 84100; 84145; 84484; 85025; 85610; 85730; 87040; 87086; 87149; 87449; 87631; 87633; 87635; 87641; 92526; 92610; 92611; 93005; 93306; 94002; 94003; 94640; 94660; 94762; 99285; J2185; Q9967; A4216; J2405

== ENCOUNTER 2025-05-24 02:59 | Emergency (ER) | payer MEDICARE, MEDICAID, SELFPAY ==
[2025-05-24] VITALS (7 sets, daily range): BP systolic 137–185; BP diastolic 72–84; PULSE 83–113; RESP 18–26; TEMP 37.2–38.3; O2SAT 87–95; BMI 39.0
--- NOTE | 2025-05-24 03:13 | EDS_ITS ---
HPI History of Present Illness Chief Complaint: Asthma Informant: patient Onset/Context/Timing Onset: Yesterday Context: gradual Timing: Continuous Worsened by: Nothing Relieved by: Nothing Associated Symptoms cough; Negative for rhinorrhea, fever, sore throat, chills, clear sputum, white sputum, yellow sputum or green sputum Chest Pain: Positive for None Narrative Narrative: Patient presents with shortness of breath that began yesterday. Patient states it has gradually gotten worse. Patient states it is constant. Patient admits to a cough but denies any sputum production. Patient denies any fevers or chills. Patient denies any chest pain. Patient denies any sore throat or rhinorrhea. Patient lives in an extended care facility. Patient is a poor informant. Patient only mumbles but is able to understand yes/no questions. [facility] Medical History Adrenal insufficiency, primary Schizoaffective disorder Pneumonia Esophageal obstruction Kidney disease Schizophrenia Depression Anxiety Open wound Abrasion Arthritis History of renal disease Dietary restriction Difficulty swallowing History of diverticulitis Heartburn Gastric reflux Non-smoker Aspiration pneumonia MRSA (methicillin resistant staph aureus) culture positive Acidosis, lactic GURJIT (acute kidney injury) Morbid obesity with BMI of 40.0-44.9, adult Intermittent explosive disorder Schizoaffective disorder Acute metabolic encephalopathy COPD (chronic obstructive pulmonary disease) Hypoxia Pneumonia Bradycardia Chronic anal fissure Cellulitis Adrenocortical insufficiency Anemia Schizo affective schizophrenia Legally blind Intermittent explosive disorder COPD (chronic obstructive pulmonary disease) Hypertension Asthma Gastroparesis Cyclical vomiting Thrombocythemia Hypocalcemia Anxiety Home Medications ?Medication ?Instructions ?Recorded ?Last Taken ?Type albuterol sulfate 0.63 mg/3 mL 0.63 mg inhalation Q4H PRN 06/04/22 Unknown History solution for nebulization Shortness Of Breath benztropine 1 mg tablet 1 mg PO BID 06/04/2207/23/2 3 History cyanocobalamin (vitamin B-12) 1,000 mcg PO WE SUPPLEME NT 06/04/22 07/24/22 08:00 History 1,000 mcg tablet escitalopram oxalate 10 mg tablet 10 mg PO BID [facility] 06/04/22 07/24/22 08:00 History (Lexapro) fludrocortisone 0.1 mg tablet 0.1 mg PO DAILY low marek isol 06/04/22 07/24/22 08:00 History fluticasone propionate 50 1 spray intranasal DAILY ALL ERGIES 06/04/22 07/24/22 08:00 History mcg/actuation nasal spray,suspension (Flonase Allergy Relief) iloperidone 12 mg tablet (Fanapt) 12 mg PO DAILY [facility] 06/04/22 07/23/22 History iloperidone 6 mg tablet (Fanapt) 6 mg PO DAILY M[facility] 06/04/22 07/24/22 08:00 History quetiapine 300 mg tablet,extended 600 mg PO QHS MENTAL [facility] 06/04/22 07/23/22 History release 24 hr (Seroquel XR) aspirin 81 mg tablet,delayed 81 mg PO DAILY [facility] 07/24/22 07/24/22 08:00 History release cholecalciferol (vitamin D3) 50 50 mcg PO DAILY SUPPLE [facility] 07/24/22 07/24/22 08:00 History mcg (2,000 unit) tablet (Vitamin D3) loperamide 2 mg capsule 2 mg PO Q4H PRN STOOL 07/24/22 09:30 History magnesium hydroxide 400 mg/5 mL 30 ml PO Q24H PRN Cons tipation 07/24/22 Unknown History oral suspension (Milk of Magnesia) propranolol 80 mg capsule,24 80 mg PO DAILY BLOOD PRES SURE 07/24/22 07/24/22 08:00 History hr,extended release L.acidophil-L.casei-B.bifid-B.longum-FOS 1 cap PO BAILEY Y supplement 06/24/24 Unknown History 2 billion cell-50 mg capsule (Probiotic Blend) divalproex 125 mg capsule,delayed 250 mg PO Q8H schizo 06/24/24 Unknown History release sprinkle folic acid 400 mcg tablet 1 mg PO DAILY supplement Unknown History hydrocortisone 5 mg tablet 15 mg PO DAILY adrenal 06/09 12/01 Unknown History insufficiency lisinopril 20 mg tablet 20 mg PO DAILY blood pressur e 06/24/24 Unknown History pantoprazole 40 mg tablet,delayed 40 mg PO Q12H GERD 0 06/24/24 Unknown History release hydrochlorothiazide 25 mg tablet 25 mg PO DAILY diuret ic 08/17/24 Unknown History lorazepam 2 mg/mL injection syringe 2 mg IM Q6H PRN ag itation 08/17/24 Unknown History potassium chloride 10 mEq 30 meq PO DAILY hypokalemia 08/17/24 Unknown History capsule,extended release acetaminophen 325 mg tablet 650 mg PO Q4H PRN fever or pain 10/11/24 Unknown History (Tylenol) docusate sodium 100 mg capsule 100 mg PO BID stool sof t 11/18/24 Unknown History (Colace) ergocalciferol (vitamin D2) 1,250 1,250 mcg PO QWEEK s uppl 11/18/24 Unknown History mcg (50,000 unit) capsule polyethylene glycol 3350 17 17 g PO DAILY constipation 11/18/24 Unknown History gram/dose oral powder (ClearLax) calcium carbonate 500 mg PO TID SUPPLEMENT 30 days 11/23/24 07/24/22 08:00 Rx #90 tabs ferrous sulfate 325 mg (65 mg 325 mg PO QODAY SUPPLEME NT 30 days 11/23/24 07/24/22 08:00 Rx iron) tablet (FeroSul) #0 tabs amlodipine 5 mg tablet 5 mg PO DAILY hypertension 1 06/12/24 Unknown History fluticasone 250 mcg-salmeterol 50 1 ea inhalation BID COPD 04/12/25 Unknown History mcg/dose blistr powdr for inhalation (Advair Diskus) lorazepam 2 mg tablet (Ativan) 2 mg PO TID generalized anxiety 04/12/25 Unknown History disorder tiotropium bromide 18 mcg capsule 1 cap inhalation MARCK LY asthma 04/12/25 Unknown History with inhalation device CPAP - Continuous Positive Airway unknown 04/17/25 Unk nown History Pressure([facility] INFORMATIONAL USE ONLY) doxycycline monohydrate 100 mg 100 mg PO BID #20 CAPSU LES 05/24/25 Unknown Rx capsule hydralazine 25 mg tablet 25 mg PO TID 05/24/25 Unknow n History lorazepam 2 mg/mL injection 0.25 mg IM Q6H PRN agitati on 05/24/25 Unknown History solution (Ativan) metoclopramide HCl 5 mg tablet 5 mg PO TID 05/24/25 Un known History Allergy/AdvReac Type Severity Reaction Status Date / Time acetic acid Allergy PT UNABLE Verified 05/24/25 03:01 TO RESPOND-NEEDS F/U nut - unspecified (nuts) Allergy PT UNABLE Verified 05/24/25 03:01 TO RESPOND-NEEDS F/U Penicillins Allergy PT UNABLE Verified 05/24/25 03:01 TO RESPOND-NEEDS F/U risperidone Allergy PT UNABLE Verified 05/24/25 03:01 TO RESPOND-NEEDS F/U Family History Father COPD (chronic obstructive pulmonary disease) Mother Hypertension Surgical History History of eye surgery S/P repair of hydrocele Social History housing: other details: Nursing facility with psychiatric focus. Smoking Status: Never smoker alcohol intake: never substance use type: does not use ROS ROS ED Review of Systems ROS Unobtainable: due to mental condition Constitutional Constitutional ED: Denies chills or fever(s) ENT ENT ED: Denies rhinorrhea or sore throat Cardiovascular Cardiovascular: Denies chest pain or palpitations Respiratory/Chest Respiratory/Chest: Reports cough and dyspnea EXAM Physical Exam Const Vital Signs: 05/24/25 02:59 05/24/25 02:59 05/24/25 03:02 Temperature 101 F H 101 F H Temperature Source Oral Oral Pulse Rate 113 H 113 H Respiratory Rate 24 H 26 H Respiratory Effort Respiratory Depth Respiratory Pattern Blood Pressure 176/76 H 176/76 H Blood Pressure Mean 109 109 Pulse Ox 92 87 92 Oxygen Delivery Method Nasal Cannula Nasal Cannula Nasal Cannula Oxygen Flow Rate (L/min) 4 4 05/24/25 03:11 05/24/25 03:36 05/24/25 04:00 Temperature 99.8 F H Temperature Source Oral Pulse Rate 93 Respiratory Rate 18 Respiratory Effort Short of Breath Respiratory Depth Normal Respiratory Pattern Normal Blood Pressure 185/84 H Blood Pressure Mean 117 Pulse Ox 95 95 Oxygen Delivery Method Nasal Cannula Nasal Cannula Nasal Cannula Oxygen Flow Rate (L/min) 4 4 3 05/24/25 05:00 05/24/25 06:00 05/24/25 06:00 Temperature 99.6 F H 98.9 F 98.9 F Temperature Source Oral Oral Pulse Rate 86 83 83 Respiratory Rate 18 18 18 Respiratory Effort Respiratory Depth Respiratory Pattern Blood Pressure 165/72 H 137/72 H 137/72 H Blood Pressure Mean 103 93 93 Pulse Ox 93 90 90 Oxygen Delivery Method Nasal Cannula Nasal Cannula Oxygen Flow Rate (L/min) 3 2 Positive well nourished and well developed Constitutional Narrative: BMI is 39.1. General Appearance ED: well developed and NAD HEENT Reports moist mucous membranes atraumatic Neck supple and no JVD Resp normal respiratory effort Auscultation: diminished lung sounds Cardio regular rhythm Rate: tachycardic GI non-tender and non-distended Palpation: soft Extremity normal to inspection General Extremety ED: Negative for edema or tenderness General Extremity: Negative for edema Neuro CN's II-XII intact bilaterally and no sensory deficits noted Sensorium / Orientation: alert Motor Exam: general weakness MDM MDM MDM Narrative Medical decision making narrative: Differential diagnosis includes pneumonia, bronchitis, viral illness, congestive heart failure, sepsis, and electrolyte abnormality. Chest x-ray will be obtained to assess for pneumonia or bronchitis. COVID-19, influenza, and RSV PCR will be obtained to assess for viral illness. CBC will be obtained to assess for leukocytosis and anemia. Basic metabolic profile will be obtained to assess for electrolyte abnormality and renal function. BNP will be obtained to assess for congestive heart failure. Serum lactate will be obtained to assess for sepsis. Blood cultures will be obtained to assess for sepsis. History & Record Review Additional record(s) reviewed:: Prior labs Lab Data Attestation: I reviewed the patient's lab results. Lab results narrative: CBC was reviewed. There is mild anemia with a hemoglobin of 8.5 and hematocrit 27.8. This is consistent with previous results. Basic metabolic profile was reviewed and was within normal limits. Serum lactate was reviewed and was normal at 1.5. BNP was repeated and was normal at 681. Labs: Laboratory Results - last 24 hr 05/24/25 04:19 WBC 5.1 RBC 3.05 L Hgb 8.5 L Hct 27.8 L MCV 91.1 MCH 27.9 MCHC 30.6 L RDW Std Deviation 58.5 H RDW Coeff of Eleanor 17.4 H Plt Count 175 MPV 9.3 Immature Gran % (Auto) 1.000 H Neut % (Auto) 68.8 Lymph % (Auto) 9.4 L [place] % (Auto) 18.3 H Eos % (Auto) 2.1 Baso % (Auto) 0.4 Absolute Neuts (auto) 3.5 Absolute Lymphs (auto) 0.48 L Nucleated RBC % 0 Sodium 140 Potassium 3.7 Chloride 94 L Carbon Dioxide 39.9 H Anion Gap 7 BUN 7 Creatinine 0.99 Estim Creat Clear Calc 104.56 Est GFR (MDRD) Non-Af 91 BUN/Creatinine Ratio 7.0 L Glucose 109 H Lactic Acid 1.5 Calcium 10.2 NT pro BNP II 681 Radiography Diagnostic Testing: Clinical Impression(s) from Imaging Studies Chest X-Ray 05/24/25 04:00 IMPRESSION: Removed the previously noted right PICC line. Stable cardiomegaly and pulmonary venous congestion changes. Bilateral perihilar and basilar infiltrates versus volume overloaded changes. Reading Location: [place] [id number] PA and lateral chest x-ray was obtained. There are 2 views. On my independent interpretation, lung hope show bilateral perihilar and basilar infiltrates versus volume overload. There is cardiomegaly. Bony thorax is normal. There is no acute process noted. Radiologist also interpreted the x-ray and agrees. Treatment and Re-Evaluation :: Patient was given a dose of Tylenol here. Patient was advised of his findings. Patient was given a dose of Levaquin here. Patient maintained his oxygen saturation at 93% on 3 L nasal cannula. Patient normally wears CPAP at night. Patient is on oxygen at nursing care facility. Patient was given a prescription for doxycycline. Patient was instructed to follow-up with his primary care physician in 5 to 7 days. Patient will be discharged back to the extended-care facility. Discharge Plan Triage Chief Complaint: Asthma ED Provider: Jethro Wilder Dx/Rx/DC Orders Clinical Impression: Pneumonia, History of COPD Instructions: ED Pneumonia (Adult) Prescriptions: New doxycycline monohydrate 100 mg capsule 100 mg PO BID Qty: 20 0RF No Action acetaminophen [Tylenol] 325 mg tablet 650 mg PO Q4H PRN (Reason: fever or pain) albuterol sulfate 0.63 mg/3 mL solution for nebulization 0.63 mg inhalation Q4H PRN (Reason: Shortness Of Breath) cyanocobalamin (vitamin B-12) 1,000 mcg Tablet 1,000 mcg PO WE benztropine 1 mg Tablet 1 mg PO BID fluticasone propionate [Flonase Allergy Relief] 50 mcg/actuation [place],Suspension 1 spray INTRANASAL DAILY fludrocortisone 0.1 mg Tablet 0.1 mg PO DAILY escitalopram oxalate [Lexapro] 10 mg Tablet 10 mg PO BID quetiapine [Seroquel XR] 300 mg Tablet Extended Release 24 Hr 600 mg PO QHS Fanapt 6 mg tablet 6 mg PO DAILY Fanapt 12 mg tablet 12 mg PO DAILY loperamide 2 mg Capsule 2 mg PO Q4H PRN (Reason: STOOL) aspirin 81 mg Tablet,Delayed Release (Dr/Ec) 81 mg PO DAILY magnesium hydroxide [Milk of Magnesia] 400 mg/5 mL Suspension 30 ml PO Q24H PRN (Reason: Constipation) propranolol 80 mg capsule,extended release 24 hr 80 mg PO DAILY cholecalciferol (vitamin D3) [Vitamin D3] 50 mcg (2,000 unit) Tablet 50 mcg PO DAILY docusate sodium [Colace] 100 mg capsule 100 mg PO BID polyethylene glycol 3350 [ClearLax] 17 gram/dose powder 17 g PO DAILY ergocalciferol (vitamin D2) 1,250 mcg (50,000 unit) capsule 1,250 mcg PO QWEEK calcium carbonate 500 mg calcium (1,250 mg) Tablet 500 mg PO TID 30 Days Qty: 90 0RF ferrous sulfate [FeroSul] 325 mg (65 mg iron) Tablet 325 mg PO QODAY 30 Days Qty: 0 0RF lorazepam [Ativan] 2 mg/mL solution 0.25 mg IM Q6H PRN (Reason: agitation) hydralazine 25 mg tablet 25 mg PO TID metoclopramide HCl 5 mg tablet 5 mg PO TID folic acid 400 mcg tablet 1 mg PO DAILY hydrocortisone 5 mg tablet 15 mg PO DAILY lisinopril 20 mg tablet 20 mg PO DAILY Probiotic Blend 2 billion cell-50 mg capsule 1 cap PO DAILY Rx Instructions: give with meal/snack pantoprazole 40 mg tablet,delayed release (DR/EC) 40 mg PO Q12H divalproex 125 mg capsule, delayed rel sprinkle 250 mg PO Q8H lorazepam 2 mg/mL syringe 2 mg IM Q6H PRN (Reason: agitation) hydrochlorothiazide 25 mg tablet 25 mg PO DAILY potassium chloride 10 mEq capsule, extended release 30 meq PO DAILY Patient Comments: [NO ORIGINAL SIG] fluticasone propion-salmeterol [Advair Diskus] 250-50 mcg/dose blister with device 1 ea inhalation BID lorazepam [Ativan] 2 mg tablet 2 mg PO TID amlodipine 5 mg tablet 5 mg PO DAILY tiotropium bromide 18 mcg capsule, w/inhalation device 1 cap inhalation DAILY CPAP - Continuous Positive Airway Pressure([facility] INFORMATIONAL USE ONLY) Patient Comments: Patient has CPAP at home but does not use Primary Care Provider: Lex Jiang Referrals: Lex Jiang MD [Primary Care Provider, Medical] - 3-5 Days Print Language: Kinyarwanda Disposition Disposition: [facility] Discharge Location: [facility] [place] Discharge Date/Time: 05/24/25 07:00
--- NOTE | 2025-05-24 04:00 | RAD_ITS ---
PROCEDURE: CHEST PA AND LATERAL 05/24/2025 REASON FOR EXAM: COUGH TECHNIQUE: Procedure Code: ADC Modality: DX Procedure: CHEST PA AND LATERAL COMPARISON: 04/16/2025 FINDINGS: Removed previously noted right PICC line. Stable cardiomegaly and pulmonary venous congestion changes. Bilateral perihilar and basal infiltrates versus volume overloaded changes. No effusion. No pneumothorax. No acute ribs abnormalities. RAD/Chest PA and Lateral IMPRESSION: Removed the previously noted right PICC line. Stable cardiomegaly and pulmonary venous congestion changes. Bilateral perihilar and basilar infiltrates versus volume overloaded changes. Reading [facility]
[2025-05-24 04:33] LABS: Hematocrit 27.8 % (40-54); Hemoglobin 8.5 g/dL (13.0-16.5); Immature Granulocytes Count 0.050 X10^3/uL (0.0-0.0); Mean Corp Hgb Conc 30.6 g/dL (32-36); Mean Corpuscular Volume 91.1 fL (80-94); Mean Platelet Vol. 9.3 fl (6.2-12.0); NRBC Flagged by Analyzer 0 % (0-5); POSITIVE DIFFERENTIAL YES; Platelet Count 175 K/mm3 (150-450); RBC Distribution Width CV 17.4 % (11.6-14.6); RBC Distribution Width SD 58.5 fl (35.1-43.9); Red Blood Count 3.05 M/mm3 (4.6-6.2); White Blood Count 5.1 K/mm3 (4.4-11.0)
[2025-05-24 04:54] LABS: Anion Gap 7 (5-15); BUN 7 mg/dL (4-19); BUN/Creat Ratio 7.0 RATIO (10-20); Calcium,Total 10.2 mg/dL (7.6-11.0); Carbon Dioxide 39.9 mmol/L (21.0-32.0); Chloride 94 mmol/L (98-108); Estimated Creatinine Clearance 104.56 ml/min (50-250); Glucose 109 mg/dL (70-99); Potassium 3.7 mmol/L (3.3-5.1); Pro- Brain NATRIURETIC PEPTIDE 681 pg/mL (<=900)
[2025-05-24] MEDS: levoFLOXacin IV 750 MG/150 ML BAG 100 MG IV (05:17)
--- NOTE | 2025-05-24 05:57 | ED.RN ---
This RN notified ARIC Alatorre of the patient's condition and plan of care. This RN also educated Celi on the patient's discharge instructions at this time.
--- NOTE | 2025-05-24 06:02 | ED.RN ---
This RN attempted to call the patient's sister, Courtney, and was unable to reach his sister at this time. Voicemail left.
== END 2025-05-24 07:00 | disposition skilled nursing facility (03) ==
PROVIDERS: Emergency Provider Emergency Medicine; PCP Family Medicine; Visit Provider Emergency Medicine
DX: J18.9 Pneumonia, unspecified organism (principal); F25.9 Schizoaffective disorder, unspecified; J44.9 Chronic obstructive pulmonary disease, unspecified; I10 Essential (primary) hypertension; Z79.899 Other long term (current) drug therapy; Z79.82 Long term (current) use of aspirin; F41.9 Anxiety disorder, unspecified; Z86.14 Personal history of Methicillin resistant Staphylococcus aureus infection; R06.02 Shortness of breath
CPT/HCPCS: 71046; 80048; 83605; 83880; 85025; 87040; 87631; 96365; 96366; 99285; A4216

== ENCOUNTER → 2025-05-24 | Outpatient (CLI) | payer MEDICARE, MEDICAID, SELFPAY ==
[2025-05-24 14:46] LABS: Hematocrit 27.6 % (40-54); Hemoglobin 8.3 g/dL (13.0-16.5); Immature Granulocytes Count 0.040 X10^3/uL (0.0-0.0); Mean Corp Hgb Conc 30.1 g/dL (32-36); Mean Corpuscular Volume 93.9 fL (80-94); Mean Platelet Vol. 9.5 fl (6.2-12.0); NRBC Flagged by Analyzer 0 % (0-5); POSITIVE DIFFERENTIAL YES; Platelet Count 180 K/mm3 (150-450); RBC Distribution Width CV 17.5 % (11.6-14.6); RBC Distribution Width SD 60.3 fl (35.1-43.9); Red Blood Count 2.94 M/mm3 (4.6-6.2); White Blood Count 4.2 K/mm3 (4.4-11.0)
[2025-05-24 16:41] LABS: AST(SGOT) 12 U/L (<=37); Alanine Aminotransfer ALT/SGPT 9 U/L (<=46); Albumin, Serum 3.3 g/dL (3.5-5.0); Alkaline Phosphatase 52 U/L (40-129); Anion Gap 7 (5-15); BUN 7 mg/dL (4-19); BUN/Creat Ratio 6.9 RATIO (10-20); Calcium,Total 10.0 mg/dL (7.6-11.0); Carbon Dioxide 40.6 mmol/L (21.0-32.0); Chloride 96 mmol/L (98-108); Globulin 2.4 g/dL (2.2-4.2); Glucose 105 mg/dL (70-99); Potassium 4.2 mmol/L (3.3-5.1)
== END | disposition home or self-care (01) ==
LOC: LAB 14:36
PROVIDERS: PCP Family Medicine; Visit Provider Family Medicine
DX: J69.0 Pneumonitis due to inhalation of food and vomit (principal)
CPT/HCPCS: 80053; 85025